=== PATIENT | male | born 1935 | race Caucasian/White ===

== ENCOUNTER 2017-08-20 14:06 | Inpatient (IN) | payer MEDICARE, OTHER ==
[~2017-08-20] VITALS: Ht 167.6 cm; Wt 100.0 kg
[~2017-08-20 14:06] MED LIST: ACET250T22; ASPI-650; ATEN50TA; BRIM10DR2; CIPR5DRO; FURO40TA4; GEMF600T60; GLIP-95; ISOS10TA2; METF500T4; PIOG30TA19; POTA10TA97; PRA40; SITA100T8; TAMS-14; TRAV5DRO5
[2017-08-20] MEDS ORDERED: SOD CHLORIDE 0.9% 1,000 ML IV STA (14:29)
[2017-08-20] MEDS ORDERED: PANTOPRAZOLE IV 80 MG in SOD CHLORIDE 0.9% 100 ML IVPB STA (14:29)
[2017-08-20] MEDS ORDERED: ACET160O41 GTB ×2 (15:11→15:12)
[2017-08-20] MEDS ORDERED: AMLO5TAB4 GTB (15:13)
[2017-08-20] MEDS ORDERED: ARGI1POW19 GTB (15:15)
[2017-08-20] MEDS ORDERED: BEN25 GTB (15:16)
[2017-08-20] MEDS ORDERED: CLON-379 PO (15:17)
[2017-08-20] MEDS ORDERED: EPO10ESRD SC (15:19)
[2017-08-20] MEDS ORDERED: SACC250C GTB (15:21)
[2017-08-20] MEDS ORDERED: FRS220B GTB (15:21)
[2017-08-20] MEDS ORDERED: FURO40TA4 GTB (15:22)
[2017-08-20] MEDS ORDERED: HYDR-3672 GTB (15:25)
[2017-08-20] MEDS ORDERED: ISOS20TA19 GTB (15:26)
[2017-08-20] MEDS ORDERED: INSU100I27 SQ (15:26)
[2017-08-20] MEDS ORDERED: METO25TA4 GTB (15:28)
[2017-08-20] MEDS ORDERED: FOLI1CAP GTB (15:29)
--- NOTE | 2017-08-20 16:01 | RADRPT ---
PROCEDURE: XR Chest. CLINICAL INDICATION: Shortness of breath. TECHNIQUE: Single frontal view. COMPARISON: 02/20/2017. FINDINGS: The tracheostomy tube is in satisfactory position. There is extensive bilateral pulmonary air space disease consistent with pulmonary edema or bilateral multifocal pneumonia, new when compared with th e prior study. The heart is mildly enlarged. There is calcification in the aorta consistent with atherosclerosis There are small bilateral pleural effusions. There is no pneumothorax. IMPRESSION: 1. Tracheostomy tube. 2. Extensive bilateral multifocal pneumonia or pulmonary edema. 3. Mild cardiomegaly. 4. Atherosclerosis. 5. Small bilateral pleural effusions. RPTAT: QQ .Javi Bruno MD, MD Date Time Electronically viewed and signed by .Javi Bruno MD, MD on 08/20/2017 16:01 .R/
[2017-08-20] MEDS ORDERED: PANT40TA3 GTB (16:29)
[2017-08-20] MEDS ORDERED: VIT500LI GTB (16:29)
[2017-08-20] MEDS ORDERED: CHOL4POW3 GTB (16:32)
[2017-08-20] MEDS ORDERED: NOVO3I SC (16:42)
[2017-08-20] MEDS ORDERED: VANCOMYCIN 1 GM (PMX) 250 ML IVPB STA (17:10)
[2017-08-20] MEDS ORDERED: PIPER-TAZO 3.375 GM IV (PMX) 100 ML IVPB STA (17:10)
--- NOTE | 2017-08-20 17:11 | ERA ---
ER Documentation Chief Complaint Date/Time DATE: 08/20/17 TIME: 17:08 Chief Complaint elebated BUN and Creatnine HPI This is an 81-year-old male who presents to the emergency room after being sent in by his primary care physician for evaluation of his BUN and creatinine. The patient does have a history of renal insufficiency, however he is not on dialysis. This patient was sent from his senior care by Dr. osorio. He is unable to give a detailed history secondary to his clinical condition at this time. ROS All systems reviewed and are negative except as per history of present illness. Medications Home Meds Reported Medications Insulin Aspart* (Novolog Insulin Pen*) 100 Unit/Ml Soln, 0 SC .SLIDING SCALE AC , EA BEFORE MEALS AND AT BEDTIME 61-149= 0 UNITS 150-199= 2 UNITS 200-249= 3 UNITS 250-299= 5 UNITS 300-349= 7 UNITS ABOVE 350 10 UNITS AND CALL MD ALSO BELOW 60 CALL MD 08/20/17 Cholestyramine (with Sugar) (Questran Packet) 4 Gm Powd.pack, 4 GM GTB BID Y for DIARRHEA give with food avoid other meds within 1 hour before or 4-6 hours after dose 08/20/17 Pantoprazole* (Protonix*) 40 Mg Tablet., 40 MG GTB DAILY, TAB 08/20/17 Vit C-Ascorbate Ca-Ascorb Sod (Vitamin C) 500 Mg/15 Ml Liquid, 166 MG GTB BID, ML 08/20/17 Folic Acid/Vitamin B Comp W-C (Nephrocaps Capsule) 1 Mg Capsule, 1 MG GTB DAILY , CAP 08/20/17 Metoprolol Tartrate* (Lopressor*) 25 Mg Tablet, 75 MG GTB BID, #180 TAB HOLD IF SBP <110 OR HR <60 TAKE WITH FOOD 08/20/17 Insulin Detemir (Levemir Flextouch) 100 Unit/1 Ml Insuln.pen, 10 UNIT SQ QHS 08/20/17 Isosorbide Dinitrate* (Isosorbide Dinitrate*) 20 Mg Tablet, 40 MG GTB BID, TAB 08/20/17 Hydralazine Hcl* (Hydralazine Hcl*) 50 Mg Tab, 50 MG GTB TID, #90 TAB HOLF IF SBP <110 OR HR <60 08/20/17 Furosemide* (Furosemide*) 40 Mg Tablet, 40 MG GTB BID, TAB 08/20/17 Saccharomyces Boulardii* (Florastor*) 250 Mg Cap, 250 MG GTB BID, CAP 08/20/17 Ferrous Sulfate (Ferrous Sulfate) 220 Mg/5 Ml Elixir, 220 MG GTB BID, BOTTLE 08/20/17 Epoetin Bo (Epogen) 10,000 Units/Ml Soln, 94379 UNITS SC EVERY TUESDAY, VIAL 08/20/17 Clonidine Hcl* (Clonidine Hcl*) 0.1 Mg Tab, 0.1 MG PO Q6 Y for ELEVATED BLOOD PRESSURE, TAB GIVE IF SBP >160 08/20/17 Diphenhydramine Hcl* (Benadryl*) 25 Mg Cap, 25 MG GTB Q8 Y for ITCHING, CAP 08/20/17 Arginine/Ascorbate Sod/Florencio AC (Arginaid Powder) 1 Each Powd.pack, 1 EACH GTB BID MIX WITH 180ML WATER 08/20/17 Amlodipine Besylate* (Norvasc*) 5 Mg Tablet, 5 MG GTB BID, TAB 08/20/17 Acetaminophen* (Acetaminophen* Susp) 160 Mg/5 Ml Oral.susp, 640 MG GTB Q4H Y for MILD-MOD PAIN, ML 08/20/17 Acetaminophen* (Acetaminophen* Susp) 160 Mg/5 Ml Oral.susp, 640 MG GTB Q4H Y for PAIN OR TEMP ABOVE 38C, ML 08/20/17 Discontinued Reported Medications Ciprofloxacin Hcl (Ciloxan) 5 Ml Drops 12/27/12 Brimonidine/Timolol* (Combigan*) 10 Ml Drops 12/27/12 Travoprost (Benzalkonium) (Travatan 0.004% Eye Drop) 5 Ml Drops 12/27/12 Gemfibrozil* (Gemfibrozil*) 600 Mg Tablet, 1 BID 12/27/12 Metformin* (Glucophage*) 500 Mg Tab, 2 BID 12/27/12 Atenolol* (Atenolol*) 50 Mg Tablet, 1 DAILY 12/27/12 Sitagliptin* (Januvia*) 100 Mg Tablet, 1 DAILY 12/27/12 Pravastatin Sodium* (Pravachol*) 40 Mg Tablet, 1 DAILY 12/27/12 Potassium Chloride (Klor-Con) 10 Meq Tablet.sa, 1 DAILY 12/27/12 Acetazolamide* (Acetazolamide*) 250 Mg Tablet, 2 BID 12/27/12 Glipizide* (Glipizide*) 10 Mg Tablet, 1 BID 12/27/12 Isosorbide Dinitrate* (Isosorbide Dinitrate*) 10 Mg Tablet, 1 TID 12/27/12 Pioglitazone Hcl* (Actos*) 30 Mg Tablet, 1 DAILY 12/27/12 Tamsulosin Hcl* (Flomax*) 0.4 Mg Cap.sr.24h, 1 BID 12/27/12 Aspirin (Aspirin) 81 Mg Tablet, 1 DAILY 12/27/12 Furosemide (Lasix) 40 Mg Tab 12/27/12 Allergies Allergies: Coded Allergies: No Known Drug Allergies (Verified Allergy, Unknown, 08/20/17) PMhx/Soc History of Surgery: No Anesthesia Reaction: No 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 EOMI. There is no scleral icterus. NECK: The trach ostomy site clean, C-spine is soft and supple, there is no meningismus. There is no cervical lymphadenopathy. LUNGS: Clear to auscultation bilaterally. There are no rales, wheezes or rhonchi. HEART: Regular rate and rhythm, no murmurs, clicks, rubs or gallops. ABDOMEN: PEG tube in place, soft, non-tender, non-distended. There are bowel sounds in all four quadrants. No rebound or guarding. EXTREMITIES: There is no peripheral cyanosis or edema. No focal swelling or erythema. NEUROLOGICAL: Contracted extremities SKIN: There is no apparent rash or petechiae. HEME/LYMPHATIC: Severe scrotal edema, 1+ pitting edema to bilateral lower extremities PSYCHIATRIC: The patient does not appear anxious or depressed. Result Diagram: 08/20/17 1500 08/20/17 1500 Results 24 hrs Laboratory Tests Test 08/20/17 15:00 08/20/17 17:17 White Blood Count 5.410^3/ul Red Blood Count 2.5710^6/ul Hemoglobin 7.3g/dl Hematocrit 22.7% Mean Corpuscular Volume 88.3fl Mean Corpuscular Hemoglobin 28.4pg Mean Corpuscular Hemoglobin Concent 32.2g/dl Red Cell Distribution Width 17.5% Platelet Count 5810^3/UL Mean Platelet Volume 11.9fl Neutrophils % 76.1% Lymphocytes % 17.4% Monocytes % 5.4% Eosinophils % 0.7% Basophils % 0.0% Nucleated Red Blood Cells % 0.0/100WBC Neutrophils # 4.110^3/ul Lymphocytes # 0.910^3/ul Monocytes # 0.310^3/ul Eosinophils # 0.010^3/ul Basophils # 0.010^3/ul Nucleated Red Blood Cells # 0.010^3/ul Prothrombin Time 14.2Sec Prothrombin Time Ratio 1.1 INR International Normalized Ratio 1.10 Activated Partial Thromboplast Time 33.8Sec Sodium Level 131mmol/L Potassium Level 4.1mmol/L Chloride Level 100mmol/L Carbon Dioxide Level 16mmol/L Anion Gap 19 Blood Urea Nitrogen 197mg/dl Creatinine 7.54mg/dl Glucose Level 98mg/dl Calcium Level 7.0mg/dl Total Bilirubin 0.0mg/dl Direct Bilirubin 0.00mg/dl Indirect Bilirubin 0.0mg/dl Aspartate Amino Transf (AST/SGOT) 22IU/L Alanine Aminotransferase (ALT/SGPT) 36IU/L Alkaline Phosphatase 115IU/L Troponin I 0.147ng/ml B-Type Natriuretic Peptide 24445SO/ML Total Protein 7.1g/dl Albumin 2.9g/dl Globulin 4.20g/dl Albumin/Globulin Ratio 0.69 Blood Gas Specimen Source Blood arterial Arterial Blood Date Drawn 08/20/2017 5:38:24 PM Arterial Blood pH (Temp corrected) 7.312 Arterial Blood pCO2 (Temp correct) 32.8mmhg Arterial Blood pO2 (Temp corrected) 53.2mmHG Arterial Blood HCO3 16.2mmol/L Arterial Blood Base Excess -9.2mmol/L Arterial Blood Oxygen Saturation 84.9mmHG Harsha Test ACCEPTAB Arterial Blood Gas Puncture Site Right Radial Arterial Blood Carboxyhemoglobin 0.1% Arterial Blood Methemoglobin 0.1% Blood Gas A-a O2 Differential 266.4mmHg Oxyhemoglobin Percent 84.7% Total Hemoglobin 6.5g/dl Blood Gas Temperature 37.0C Blood Gas Respiration Rate 14.0 Blood Gas Actual Respiration Rate 18 Blood Gas Modality VENT - AC FiO2 50.0% Blood Gas Tidal Volume 500.0mL Blood Gas Low PEEP Setting 5.0cmH2O Blood Gas Critical Value Read Back MD SUSU Blood Gas Notified Whom [place] Blood Gas Notified Time 08/20/2017 5:45:45 PM Current Medications Medications (Trade) Dose Ordered Sig/Russell Route PRN Reason Start Time Stop Time Status Last Admin Dose Admin Sodium Chloride 1,000 ml @ 1,000 mls/hr Q1H STAT IV 08/20/17 14:29 08/20/17 15:28 DC 08/20/17 15:14 Pantoprazole/ Sodium Chloride (Protonix Iv/NS) 100 ml @ 400 mls/hr ONCE STAT IVPB 08/20/17 14:29 08/20/17 14:43 DC 08/20/17 14:29 Ondansetron HCl (Zofran Inj) 4 mg ER BRIDGE PRN IV NAUSEA AND/OR VOMITING 08/20/17 17:30 08/21/17 17:29 Acetaminophen 650 mg 650 mg ER BRIDGE PRN PO MILD PAIN/FEVER 08/20/17 17:30 08/21/17 17:29 Vancomycin HCl 250 ml @ 125 mls/hr ONCE STAT IVPB 08/20/17 17:10 08/20/17 19:09 Piperacillin Sod/ Tazobactam Sod (Zosyn 3.375gm/ 100 ml (Pmx)) 100 ml @ 200 mls/hr ONCE STAT IVPB 08/20/17 17:10 08/20/17 17:39 DC Procedures/MDM Chest X-ray 1V Interpreted by me: Soft Tissue: No acute abnormalities Bones: No acute abnormalities Mediastinum/Cardiac Silhouette/Lungs: [Pulmonary edema EKG: Rate/Rhythm: [Normal Sinus Rhythm] QRS, ST, T-waves: [No changes consistent w/ acute ischemia] Impression: [No evidence of ischemia or arrhythmia] This 81-year-old male presents to the ER for evaluation of increasing his BUN and creatinine. When I evaluated this patient this patient was unable to give a history secondary to his clinical condition however lab work was obtained and a chest x-ray was obtained which does show pulmonary edema. His lab work does show acute renal failure. His creatinine is 7.54 at this time in his previous creatinine was less than 1. His BUN is 197. The patient is suffering from acute renal failure at this time. I have contacted his admitting physician Dr. Conner who is covering for Dr. Krishnan states to contact nephrology Dr. Nieto. I contacted Dr. Nieto and Dr. Nieto states that he will evaluate this patient on the floor. This patient will be placed on telemetry floor at this time and is full code according to his senior care Critical Care: Excluding all billable procedures Time: 38 minutes Treatments/Evaluations: Close monitoring and treatment of unstable vital signs, cardiorespiratory, and neurologic status, while maintaining tight balance of fluid, respiratory, and cardiac interventions. Departure Diagnosis: Primary Impression: Pulmonary edema Additional Impressions: Acute renal failure Normocytic anemia Thrombocytopenia Condition: Stable AHMET YOST DO Aug 20, 2017 17:11
[2017-08-20] MEDS ORDERED: ACETAMINOPHEN 325 MG TAB PO PRN (17:30)
[2017-08-20] MEDS ORDERED: ONDANSETRON 4 MG INJ IV PRN (17:30)
[2017-08-20] MEDS ORDERED: ASPIRIN 325 MG TAB PEG ONE (18:00)
[2017-08-20] MEDS ORDERED: ASPIRIN 325 MG TAB ONE (18:47)
--- NOTE | 2017-08-20 20:09 | CONS ---
Date/Time of Note Date/Time of Note DATE: 08/20/17 TIME: 20:09 Assessment/Plan Assessment/Plan Additional Assessment/Plan 1. Acute on Chronic Renal failure 2/2 Prerenal azotemia with ATN 2. AMS due to acute metabolic encephalopathy + uremic encephalopathy 3. Severe metabolic acidosis 4. HTN 5. H/o CVA with residual weakness 6. IDDM Plan: Sodium bicarboante 100mEQ in D5 W at 50 cc /hr IV abx Zosyn and vancomycin as per pharamcy to dose AM labs ordered by me pt was recently admitted to [facility] for similar reason and Pt family declined for HD. we will try to reach out to maciel to further discuss goals of care. Thanks for consultation , I will conitnue to follow up Consultation Date/Type/Reason Admit Date/Time Aug 20, 2017 at 17:03 Date of Consultation: Aug 20, 2017 Type of Consultation: NEPHROLOGY Reason for Consultation acute renal failure Referring Provider: HUSSEIN ROSE Hx of Present Illness 81-year-old male who presents to the emergency room after being sent in by his primary care physician for evaluation of his BUN and creatinine. The patient does have a history of renal insufficiency, however he is not on dialysis. This patient was sent from his senior living by Dr. osorio. He is unable to give a detailed history secondary to his clinical condition at this time. pt was recently admitted at [facility] [place] for similar acute on chronic renal failure and during that admission maciel declinied for HD/ pt was brought in here for AMS, He is noted to have BUN 197, Cr 7.9- Renal has been consulted for it. Subjective hx not possible: pt non-verbal, other (Unable to obtain ROS due to pt mental status ) Past Medical History Medical History: congestive heart failure, diabetes, hypertension, other (H/o CVA with residual weakness) Past Surgical History Past Surgical Hx: other (Tracheostomhy) Family History Significant Family History: no pertinent family hx Social History Alcohol Use: none Smoking Status: Unknown if ever smoked Drug Use: none Exam/Review of Systems Vital Signs Vitals Vital Signs Date Time Temp Pulse Resp B/P Pulse Ox O2 Delivery O2 Flow Rate FiO2 08/20/17 19:10 69 26 95 80 08/20/17 16:37 131/65 Mechanical Ventilator 08/20/17 15:06 10 08/20/17 15:06 98.4 Exam Constitutional: non-verbal Psych: no complaints Head: normocephalic Neck: non-tender, supple Respiratory: congested cough, crackles/rales, diminished breath sounds, normal air movement Cardiovascular: nl pulses, regular rate and rhythm Gastrointestinal: non-tender, soft Musculoskeletal: joint tenderness, muscle weakness, swelling Extremities: normal pulses Neurological: confused, focal weakness Results Result Diagram: 08/20/17 1500 08/20/17 1500 Results 24 hrs Laboratory Tests Test 08/20/17 15:00 08/20/17 17:17 08/20/17 17:43 White Blood Count 5.4 # Red Blood Count 2.57 #L Hemoglobin 7.3 #L Hematocrit 22.7 #L Mean Corpuscular Volume 88.3 Mean Corpuscular Hemoglobin 28.4 L Mean Corpuscular Hemoglobin Concent 32.2 Red Cell Distribution Width 17.5 H Platelet Count 58 #L Mean Platelet Volume 11.9 #H Neutrophils % 76.1 Lymphocytes % 17.4 Monocytes % 5.4 Eosinophils % 0.7 Basophils % 0.0 Nucleated Red Blood Cells % 0.0 Neutrophils # 4.1 Lymphocytes # 0.9 Monocytes # 0.3 Eosinophils # 0.0 Basophils # 0.0 Nucleated Red Blood Cells # 0.0 Prothrombin Time 14.2 Prothrombin Time Ratio 1.1 INR International Normalized Ratio 1.10 Activated Partial Thromboplast Time 33.8 Sodium Level 131 L Potassium Level 4.1 Chloride Level 100 Carbon Dioxide Level 16 L Anion Gap 19 H Blood Urea Nitrogen 197 H Creatinine 7.54 H Glucose Level 98 Calcium Level 7.0 L Total Bilirubin 0.0 L Direct Bilirubin 0.00 Indirect Bilirubin 0.0 Aspartate Amino Transf (AST/SGOT) 22 Alanine Aminotransferase (ALT/SGPT) 36 Alkaline Phosphatase 115 Troponin I 0.147 *H B-Type Natriuretic Peptide 25705 H Total Protein 7.1 Albumin 2.9 L Globulin 4.20 H Albumin/Globulin Ratio 0.69 Blood Gas Specimen Source Blood arterial Arterial Blood Date Drawn 08/20/2017 5:38:24 PM Arterial Blood pH (Temp corrected) 7.312 L Arterial Blood pCO2 (Temp correct) 32.8 L Arterial Blood pO2 (Temp corrected) 53.2 *L Arterial Blood HCO3 16.2 L Arterial Blood Base Excess -9.2 L Arterial Blood Oxygen Saturation 84.9 L Harsha Test ACCEPTAB Arterial Blood Gas Puncture Site Right Radial Arterial Blood Carboxyhemoglobin 0.1 Arterial Blood Methemoglobin 0.1 Blood Gas A-a O2 Differential 266.4 H Oxyhemoglobin Percent 84.7 L Total Hemoglobin 6.5 L Blood Gas Temperature 37.0 Blood Gas Respiration Rate 14.0 Blood Gas Actual Respiration Rate 18 Blood Gas Modality VENT - AC FiO2 50.0 Blood Gas Tidal Volume 500.0 Blood Gas Low PEEP Setting 5.0 Blood Gas Critical Value Read Back MD SUSU Blood Gas Notified Whom DONELL Blood Gas Notified Time 08/20/2017 5:45:45 PM Lactic Acid Level 0.7 Medications Medications Current Medications Sodium Bicarbonate/ Dextrose (Na Bicarb/D5W) 1,100 ml @ 50 mls/hr Q22H IV ; Start 08/20/17 at 20:30; Status UNV LUCILLE CABALLERO MD Aug 20, 2017 20:09
[2017-08-20] MEDS: SODIUM BICARBONATE (IV ADD) 100 MEQ in DEXTROSE 5% 900 ML IV SCH (20:30)
--- NOTE | 2017-08-21 07:29 | RADRPT ---
PROCEDURE: Renal US. CLINICAL INDICATION: acute renal failure, to assess for CKD TECHNIQUE: Multiple sonographic images of the kidneys were obtained. The images were reviewed on a PACS workstation. COMPARISON: No prior studies are available for comparison. FINDINGS: The kidneys appear increased in echogenicity. The right kidney measures 10.7 cm. 2 cortical cysts ar e seen in the upper pole, the larger measuring 3.1 x 3.5 cm. The left kidney measures 10.1 cm. There is an exophytic cyst in the lower pole measuring 2.2 x 2.4 x 2 cm. There is no evidence for obstr uctive uropathy. No perinephric fluid is seen. IMPRESSION: Increased renal echogenicity suggesting renal parenchymal disease. Bilateral renal cysts. Physician Benjamín Date Time Electronically viewed and signed by Physician Benjamín on 08/21/2017 07:29 /
--- NOTE | 2017-08-21 11:50 | HP ---
Date/Time of Note Date/Time of Note DATE: 08/21/17 TIME: 11:37 Assessment/Plan VTE Prophylaxis VTE Prophylaxis Intervention: other Assessment/Plan Chief Complaint/Hosp Course 1) renal insufficiency failure - consult nephrology - will need clarification as to what the family wants done 2) chronic respiratory failure - on trach, appears stable Problems: HPI/ROS Admit Date/Time Admit Date/Time Aug 20, 2017 at 17:03 Hx of Present Illness Patient is from subacute with respiratory failure that is known to me. Patient apparently was noted to have increasing BUN and Creatinine but there was conflicting reports as to how aggressive the family wanted to be regarding his treatment. I was called regarding BUN over 100 and Cr also extremely elevated. Patient was apparently stable but the family decided that they wanted the patient to go to an acute hospital. Patient was then transfered for further evaluation and treatment. ROS Subjective hx not possible: pt non-verbal Psychological: no complaints PMH/Family/Social Past Medical History Medical History: congestive heart failure, diabetes, hypertension, other (H/o CVA with residual weakness) Past Surgical History Past Surgical Hx: other (Tracheostomhy) Social History Alcohol Use: none Smoking Status: Unknown if ever smoked Drug Use: none Exam/Review of Systems Vital Signs Vitals Vital Signs Date Time Temp Pulse Resp B/P Pulse Ox O2 Delivery O2 Flow Rate FiO2 08/21/17 11:00 80 28 94 50 08/21/17 10:57 136/68 Mechanical Ventilator 08/21/17 07:21 8.0 08/21/17 06:00 96.0 Exam Constitutional: well developed Neck: supple Respiratory: diminished breath sounds Cardiovascular: regular rate and rhythm Gastrointestinal: non-tender, soft Extremities: normal pulses Labs Result Diagram: 08/21/1752908/21/17529 Medications Medications Current Medications Sodium Bicarbonate/ Dextrose (Na Bicarb/D5W) 1,000 ml @ 50 mls/hr Q20H IV Last administered on 08/20/17t 20:30; Admin Dose 50 MLS/HR; Start 08/20/17 at 20 :30 HUSSEIN ROSE Aug 21, 2017 11:50
--- NOTE | 2017-08-21 13:14 | RADRPT ---
PROCEDURE: US bilateral upper extremity veins. CLINICAL INDICATION: Bilateral upper extremity pain and swelling. TECHNIQUE: Multiple longitudinal and transverse images of the bilateral upper extremity venous quin e was obtained with maldonado scale and color Doppler imaging. COMPARISON: None available FINDINGS: The bilateral internal jugular, subclavian, axillary, brachial, basilic, cephalic, radial, and ulnar veins are patent. There is normal flow with augmentation and compressibility throughout. There is no thrombus or occlusion. IMPRESSION: 1. Normal venous system of the upper extremities. No evidence of thrombus or occlusion. RPTAT: QQ .Javi Bruno MD, MD Date Time Electronically viewed and signed by .Javi Bruno MD, MD on 08/21/2017 13:14 .R/
--- NOTE | 2017-08-21 13:15 | RADRPT ---
PROCEDURE: US bilateral lower extremity veins. CLINICAL INDICATION: Bilateral leg pain and swelling. TECHNIQUE: Multiple longitudinal and transverse images of the bilateral lower extremity veins were obtained with maldonado scale and color Doppler imaging. The common femoral vein, femoral vein, and popl iteal vein were evaluated. 2D grayscale measurements with compression sonography, color Doppler, and pulsed Doppler with augmentation. COMPARISON: No prior studies are available for comparison. FINDINGS: The right common femoral, femoral and popliteal veins are normally compressible throughout. Color f low demonstrates normal filling of the vessels. Normal waveforms are visualized and there is normal response to augmentation. The left lower extremity cannot be completely evaluated due to patient inability to cooperate. Howev er, the left common femoral vein demonstrates normal compressibility. IMPRESSION: 1. No evidence of deep venous thrombosis of the right lower extremity. 2. The left lower extremity could not be evaluated. However, the left common femoral vein appears n ormal. RPTAT: QQ .Javi Bruno MD, MD Date Time Electronically viewed and signed by .Javi Bruno MD, on 08/21/2017 13:15 .R/
--- NOTE | 2017-08-21 15:10 | CONS ---
Date/Time of Note Date/Time of Note DATE: 08/21/17 TIME: 15:04 Assessment/Plan Assessment/Plan Additional Assessment/Plan IMP: 1. AMS--likely multifactorial and related to a combination of uremia, sepsis, and a poor baseline 2. Multifocal pulm opacities--component of volume, however, likely co-existing pneumonia 3. Acute on CKD 4. Demand ischemia 5. CHF 6. Anemia RECS: 1. Renal to discuss possible HD with family 2. Vent support with increased RR to compensate for met acidosis 3. NaHCO3 for now 4. Abx 5. BC x 2 6. Resp Cx 7. ECHO 8. Am labs/CXR Consultation Date/Type/Reason Admit Date/Time Aug 20, 2017 at 17:03 Type of Consultation: Pulm Hx of Present Illness Briefly, this is an 81-year-old male with a history of chronic resp failure s/p trach, HTN, CHF, CVA, CKD, SNF resident who presents to the emergency room after being sent in by his primary care physician for evaluation of his BUN and creatinine. In the ED, he was noted to be more hypoxemic than baseline with severe renal failure, seen by Renal. Subjective hx not possible: pt non-verbal Psychological: no complaints Past Medical History Medical History: congestive heart failure, diabetes, hypertension, other (H/o CVA with residual weakness) Past Surgical History Past Surgical Hx: other (Tracheostomhy) Family History Significant Family History: no pertinent family hx Social History Alcohol Use: none Smoking Status: Unknown if ever smoked Drug Use: none Exam/Review of Systems Vital Signs Vitals Vital Signs Date Time Temp Pulse Resp B/P Pulse Ox O2 Delivery O2 Flow Rate FiO2 08/21/17 13:39 82 16 151/77 95 Mechanical Ventilator 08/21/17 11:00 50 08/21/17 07:21 8.0 08/21/17 06:00 96.0 Exam Constitutional: non-verbal Head: atraumatic, normocephalic ENMT: intubated, nl external ears & nose, nl lips & teeth Neck: non-tender, supple Respiratory: crackles/rales, diminished breath sounds, labored breathing Cardiovascular: jugular venous distention (JVD), nl pulses, systolic murmur Gastrointestinal: nl liver, spleen, non-tender, soft Musculoskeletal: nl extremities to inspection Extremities: edema, pitting pedal edema Results Result Diagram: 08/21/17 0530 08/21/17 0530 Results 24 hrs Laboratory Tests Test 08/20/17 17:17 08/20/17 17:43 08/21/17 05:30 08/21/17 05:40 Blood Gas Specimen Source Blood arterial Blood arterial Arterial Blood Date Drawn 08/20/2017 5:38:24 PM 08/21/2017 5:30:20 AM Arterial Blood pH (Temp corrected) 7.312 L 7.320 L Arterial Blood pCO2 (Temp correct) 32.8 L 27.8 L Arterial Blood pO2 (Temp corrected) 53.2 *L 69.4 L Arterial Blood HCO3 16.2 L 14.0 L Arterial Blood Base Excess -9.2 L -10.9 L Arterial Blood Oxygen Saturation 84.9 L 91.5 L Harsha Test ACCEPTAB ACCEPTAB Arterial Blood Gas Puncture Site Right Radial Right Radial Arterial Blood Carboxyhemoglobin 0.1 0.3 Arterial Blood Methemoglobin 0.1 0.3 Blood Gas A-a O2 Differential 266.4 H 255.8 H Oxyhemoglobin Percent 84.7 L 91.0 L Total Hemoglobin 6.5 L 8.1 L Blood Gas Temperature 37.0 37.0 Blood Gas Respiration Rate 14.0 14.0 Blood Gas Actual Respiration Rate 18 26 Blood Gas Modality VENT - AC VENT - AC FiO2 50.0 50.0 Blood Gas Tidal Volume 500.0 500.0 Blood Gas Low PEEP Setting 5.0 5.0 Blood Gas Critical Value Read Back MD DR. JARETT CRISTOBAL J. Blood Gas Notified Whom [place] Blood Gas Notified Time 08/20/2017 5:45:45 PM 08/21/2017 5:57:06 AM Lactic Acid Level 0.7 White Blood Count 5.3 Red Blood Count 2.44 L Hemoglobin 6.8 *L Hematocrit 21.6 L Mean Corpuscular Volume 88.5 Mean Corpuscular Hemoglobin 27.9 L Mean Corpuscular Hemoglobin Concent 31.5 L Red Cell Distribution Width 17.9 H Platelet Count 55 L Mean Platelet Volume 13.1 H Neutrophils % 78.3 H Lymphocytes % 15.1 Monocytes % 5.1 Eosinophils % 1.1 Basophils % 0.0 Nucleated Red Blood Cells % 0.0 Neutrophils # 4.2 Lymphocytes # 0.8 Monocytes # 0.3 Eosinophils # 0.1 Basophils # 0.0 Nucleated Red Blood Cells # 0.0 Sodium Level 132 L Potassium Level 3.8 Chloride Level 102 Carbon Dioxide Level 14 L Anion Gap 20 H Blood Urea Nitrogen 192 H Creatinine 7.35 H Glucose Level 102 Uric Acid 5.0 Calcium Level 6.9 L Total Bilirubin 0.0 L Direct Bilirubin 0.00 Indirect Bilirubin 0.0 Aspartate Amino Transf (AST/SGOT) 20 Alanine Aminotransferase (ALT/SGPT) 32 Alkaline Phosphatase 109 Total Protein 6.8 Albumin 2.8 L Globulin 4.00 H Albumin/Globulin Ratio 0.70 Blood Gas Mean Airway Pressure 13 Blood Gas Inspiratory Pressure 29.0 Test 08/21/17 11:35 Blood Gas Specimen Source Blood arterial Arterial Blood Date Drawn 08/21/2017 11:49:41 AM Arterial Blood pH (Temp corrected) 7.309 L Arterial Blood pCO2 (Temp correct) 29.8 L Arterial Blood pO2 (Temp corrected) 69.0 L Arterial Blood HCO3 14.6 L Arterial Blood Base Excess -10.6 L Arterial Blood Oxygen Saturation 91.1 L Harsha Test ACCEPTAB Arterial Blood Gas Puncture Site Right Radial Arterial Blood Carboxyhemoglobin 0.3 Arterial Blood Methemoglobin 0.4 Blood Gas A-a O2 Differential 254.0 H Oxyhemoglobin Percent 90.5 L Total Hemoglobin 7.8 L Blood Gas Temperature 37.0 Blood Gas Respiration Rate 14.0 Blood Gas Actual Respiration Rate 14 Blood Gas Modality VENT - AC FiO2 50.0 Blood Gas Tidal Volume 500.0 Blood Gas Low PEEP Setting 5.0 Blood Gas Notified Whom [facility] Blood Gas Notified Time 08/21/2017 11:54:38 AM Medications Medications Current Medications Sodium Bicarbonate/ Dextrose (Na Bicarb/D5W) 1,000 ml @ 50 mls/hr Q20H IV Last administered on 08/20/17 20:30; Admin Dose 50 MLS/HR; Start 08/20/17 at 20 :30 Metoprolol Tartrate (Lopressor) 25 mg BID GTB ; Start 08/21/17 at 21:00 GLO COLEY MD Aug 21, 2017 15:10
--- NOTE | 2017-08-21 15:42 | CONS ---
DATE OF ADMISSION: 08/20/2017 DATE OF CONSULTATION: 08/21/2017 REASON FOR CONSULTATION: Positive troponin. Assess significance. REFERRING PHYSICIAN: Dr. Waqar Chávez HISTORY OF PRESENT ILLNESS: Mr. Rodriguez is an 81-year-old male with a history of hypertension, prior CVA, diabetes mellitus, congestive heart failure, chronic respiratory failure respiratory failure status post-tracheostomy, chronic renal failure, encephalopathy who initially presented with worsening mental status. Initially upon arrival, the temperature was 98.4, blood pressure 124/67, pulse 64, respirations 16, saturating 97 percent. LABORATORY AND DIAGNOSTIC STUDIES: Revealed a white count 5.4, hemoglobin 7.3, platelet count of 58. Sodium 131, potassium of 4.1, creatinine 7.54, which was increased from baseline. Troponin 0.147. BNP of 32,700. ABG revealing a pH of 7.312, with a PaO2 of 53, pCO2 of 32. INR of 1.1. The patient underwent a chest x-ray, revealing a tracheostomy tube in place, extensive bilateral multifocal pneumonia or pulmonary edema, mild cardiomegaly and small bilateral pleural effusions. The patient underwent a venous ultrasound revealing no evidence of DVT in the right lower extremity and no evidence of DVT of the upper extremities. In addition, the patient had a renal ultrasound revealing increased renal echogenicity suggesting renal parenchymal disease. The patient's electrocardiogram revealed normal sinus rhythm, rate of 64, normal axis, intervals, with nonspecific ST throughout diffusely. The patient subsequently at this time awaits admit to the ICU. PAST MEDICAL HISTORY: As above in HPI. MEDICATION: Currently in hospital: 1. IV fluid hydration with bicarbonate fluids 50 cc an hour. 2. Zofran. 3. Tylenol. ALLERGIES: NO KNOWN DRUG ALLERGIES. SOCIAL HISTORY: No current tobacco, EtOH or illicit drug use. FAMILY HISTORY: No history of cardiac or early CAD. REVIEW OF SYSTEMS: As above in HPI. CONSTITUTIONAL: No fevers or chills. RESPIRATORY: No current shortness of breath. CARDIOVASCULAR: No current signs of chest pain, but positive troponin. GASTROINTESTINAL: No vomiting. GENITOURINARY: Renal failure, acute on chronic. PSYCH: No documented psych history. NEURO: Encephalopathy, history of CVA. ENDOCRINE: Diabetes mellitus. PHYSICAL EXAMINATION: VITAL SIGNS: Temperature of 96 most recently, blood pressure 151/77, pulse 82, respiratory rate 16, saturating 95 percent. GENERAL: The patient is alert, encephalopathic. NECK: Tracheostomy in place. LUNGS: Upper chest rhonchi sounds. HEART: Regular rate and rhythm. Normal S1, S2. 1/6 systolic murmur. Nondisplaced PMI. ABDOMEN: Positive bowel sounds. Soft. Positive G-tube. EXTREMITIES: Trace edema. 1+ pulses bilaterally posterior tibial. LABORATORY: Most recently from today, white count 5.3, hemoglobin 6.8, platelet count of 55, sodium 132, potassium 3.8, creatinine of 7.35. ABG revealing a pH of 7.309, a PaO2 of 69, pCO2 of 29. IMAGING STUDIES: As above in HPI. No further imaging studies are reviewed. No further electrograms for review at this time. IMPRESSION: 1. Positive troponin status. Significant in the setting of renal failure. 2. Abnormal electrocardiogram, nonspecific ST-T abnormalities. 3. Hypertension. 4. Respiratory failure, acute on chronic. 5. Renal failure, acute on chronic. 6. Dysphagia, status post G-tube. 7. Anemia, severe. 8. Thrombocytopenia, severe. 9. Encephalopathy. 10. History of CVA. 11. Diabetes mellitus. RECOMMENDATIONS: 1. At this time, would admit patient to the ICU. Follow rhythm rate control closely. 2. We will continue to trend the patient's cardiac enzymes. Assess for any significant ongoing cardiac damage. 3. Check a 2D echo to further assess ejection fraction, wall motion, and major abnormalities. 4. Initiate patient on low-dose beta hai as tolerated. Follow heart rate blood pressure closely. 5. We will not give patient any aspirin at this time given significant anemia as well as thrombocytopenia. 6. Possible need for hemodialysis depending on goals of current care. Per chart, the patient has received has refused hemodialysis in the past and thus I thing it is of importance to discuss with the patient's family code status and goals of care at this time given severe renal failure. Thank you for allowing to take part in the care of this patient. I will continue to follow closely with you with any recommendations made during patient's hospital course. Dictated By: Amol Zuniga MD /rosie/deshawn /Document#: [id number] CC: Waqar Chávez MD; Michael Nieto MD;*EndCC* MTDD
[2017-08-21] MEDS: SODIUM BICARBONATE (IV ADD) 100 MEQ in DEXTROSE 5% 900 ML IV SCH (17:58)
[2017-08-21] MEDS: METOPROLOL 25 MG TAB GTB SCH (21:09)
[2017-08-21 23:28] VITALS: TEMP 98.7
[2017-08-21 23:59] VITALS: PULSE 94
[2017-08-22] VITALS (65 sets, daily range): BP systolic 46–191; BP diastolic 10–137; PULSE 79–113; RESP 16–39; BMI 25.5
--- NOTE | 2017-08-22 07:28 | RADRPT ---
PROCEDURE: XR Chest. CLINICAL INDICATION: Shortness of breath. TECHNIQUE: Single frontal view. COMPARISON: 08/20/2017. FINDINGS: The tracheostomy tube is in satisfactory position. There is extensive bilateral pulmonary air space disease consistent with pulmonary edema or bilateral multifocal pneumonia, worse when compared with the prior study. The heart is mildly enlarged. There is calcification in the aorta consistent with atherosclerosis There are small bilateral pleural effusions. There is no pneumothorax. IMPRESSION: 1. Worse appearance of the lungs. 2. No other change from 08/20/2017. RPTAT: QQ .Javi Bruno MD, MD Date Time Electronically viewed and signed by .Javi Bruno MD, MD on 08/22/2017 07:28 .R/
[2017-08-22] MEDS ORDERED: VANCOMYCIN IV PER PHARMACY XX SCH (08:30)
--- NOTE | 2017-08-22 08:34 | CONS ---
Date/Time of Note Date/Time of Note DATE: 08/22/17 TIME: 08:22 Assessment/Plan Assessment/Plan Chief Complaint/Hosp Course 81-year-old male who presents to the emergency room after being sent in by his primary care physician for evaluation of his BUN and creatinine. The patient does have a history of renal insufficiency, however he is not on dialysis. This patient was sent from his fdc by Dr. osorio. He is unable to give a detailed history secondary to his clinical condition at this time. pt was recently admitted at [facility] for similar acute on chronic renal failure and during that admission familiy declinied for HD/ pt was brought in here for AMS, He is noted to have BUN 197, Cr 7.9- Renal has been consulted for it. Problems: Additional Assessment/Plan 1. Sepsis due to PNA 2. Acute on chronic renal failure - with severe metabolic acidosis and acute uremic encephalopathy 3. AMS due to acute uremic encephalopathy + acute metabolic encephalopathy 3. H/o recent admission to [facility] for renal failure 4. H/o chronic resp failure s/p tracheostomy 5. HTN 6. H/o CVA with residual weakness 7.. IDDM Plan: Continue D5W with sodium bicarboante now I discussed with patient tyra Burrell- [phone] and explained him about his Dad's medical problems, overall prognosis and need of hemodialysis. all of his questions answered properly. He said pt was admitted to [facility] recently and had a a Discussion about dialysis also. He wants to have HD now and insisted on doing it and give him a chance of survival. I explained him risks and complications of dialysis catheter placement and also informed him that HD will not change his overall prognosis and outcome. He still want to try HD to see how does. will order dialysis catheter placement and plan is to do 2 hr HD today and 3 hr HD tomorrow. requested to place tee catheter IV abx zosyn and vancomycin for sepsis Pulmonary to follow up Consultation Date/Type/Reason Admit Date/Time Aug 20, 2017 at 17:03 Initial Consult Date 08/20/17 Type of Consultation: NEPHROLOGY Referring Provider: HUSSEIN ROSE 24 HR Interval Summary Free Text/Dictation pt admitted to ICU, did not a make urine, BP 106/70 Exam/Review of Systems Vital Signs Vitals Vital Signs Date Time Temp Pulse Resp B/P Pulse Ox O2 Delivery O2 Flow Rate FiO2 08/22/17 06:00 90 24 125/56 98 08/22/17 05:38 70 08/22/17 04:00 98.0 08/22/17 00:15 Mechanical Ventilator 08/21/17 23:28 8.0 Intake and Output 08/21/17 08/21/17 08/22/17 15:00 23:00 07:00 Intake Total 350 ml Output Total 10 ml Balance 340 ml Exam Constitutional: non-verbal Head: normocephalic ENMT: other (+ tracheostomy on ventilator ) Neck: non-tender, supple Respiratory: congested cough, crackles/rales, diminished breath sounds Cardiovascular: S3, regular rate and rhythm Gastrointestinal: non-tender, soft Musculoskeletal: other (2+ pittign edema ), swelling Neurological: other (non verbal ,lethargic, pt is s/p tracheostomy on ventilator ) Results Result Diagram: 08/22/17 0505 08/22/17 0505 Results 24 hrs Laboratory Tests Test 08/21/17 11:35 08/21/17 18:20 08/22/17 01:07 08/22/17 05:00 Blood Gas Specimen Source Blood arterial Blood arterial Arterial Blood Date Drawn 08/21/2017 11:49:41 AM 08/22/2017 4:40:36 AM Arterial Blood pH (Temp corrected) 7.309 L 7.291 *L Arterial Blood pCO2 (Temp correct) 29.8 L 33.8 L Arterial Blood pO2 (Temp corrected) 69.0 L 66.4 L Arterial Blood HCO3 14.6 L 15.9 L Arterial Blood Base Excess -10.6 L -9.7 L Arterial Blood Oxygen Saturation 91.1 L 90.0 L Harsha Test ACCEPTAB ACCEPTAB Arterial Blood Gas Puncture Site Right Radial Right Radial Arterial Blood Carboxyhemoglobin 0.3 0.3 Arterial Blood Methemoglobin 0.4 0.4 Blood Gas A-a O2 Differential 254.0 H 396.4 H Oxyhemoglobin Percent 90.5 L 89.4 L Total Hemoglobin 7.8 L 7.2 L Blood Gas Temperature 37.0 37.0 Blood Gas Respiration Rate 14.0 24.0 Blood Gas Actual Respiration Rate 14 26 Blood Gas Modality VENT - AC VENT - VC+ FiO2 50.0 70.0 Blood Gas Tidal Volume 500.0 500.0 Blood Gas Low PEEP Setting 5.0 5.0 Blood Gas Notified Whom [facility] Blood Gas Notified Time 08/21/2017 11:54:38 AM 08/22/2017 5:00:35 AM Creatine Kinase < 20 L 121 Creatine Kinase Index 4.1 Creatinine Kinase MB (Mass) 4.98 H 4.96 H Troponin I 0.238 *H 0.204 *H Blood Gas Inspiratory Time 0.70 Blood Gas Critical Value Read Back Niharika LEONARD RN Test 08/22/17 05:05 White Blood Count 6.0 Red Blood Count 2.24 L Hemoglobin 6.4 *L Hematocrit 19.7 L Mean Corpuscular Volume 87.9 Mean Corpuscular Hemoglobin 28.6 L Mean Corpuscular Hemoglobin Concent 32.5 Red Cell Distribution Width 17.7 H Platelet Count 51 L Mean Platelet Volume 13.0 H Neutrophils % 80.1 H Lymphocytes % 14.1 L Monocytes % 5.0 Eosinophils % 0.3 Basophils % 0.0 Nucleated Red Blood Cells % 0.0 Neutrophils # 4.8 Lymphocytes # 0.8 Monocytes # 0.3 Eosinophils # 0.0 Basophils # 0.0 Nucleated Red Blood Cells # 0.0 Sodium Level 129 L Potassium Level 4.0 Chloride Level 100 Carbon Dioxide Level 15 L Anion Gap 18 H Blood Urea Nitrogen 200 H Creatinine 7.14 H Glucose Level 102 Lactic Acid Level 0.6 Calcium Level 6.7 L Triglycerides Level 85 Cholesterol Level 84 L LDL Cholesterol, Calculated 38 HDL Cholesterol 29 L Cholesterol/HDL Ratio 2.8 Medications Medications Current Medications Sodium Bicarbonate/ Dextrose (Na Bicarb/D5W) 1,000 ml @ 50 mls/hr Q20H IV Last administered on 08/21/17 17:58; Admin Dose 50 MLS/HR; Start 08/20/17 at 20 :30 Metoprolol Tartrate (Lopressor) 25 mg BID GTB Last administered on 08/21/17 21 :09; Admin Dose 25 MG; Start 08/21/17 at 21:00 LUCILLE CABALLERO MD Aug 22, 2017 08:32
[2017-08-22] MEDS ORDERED: LIDOCAINE 1% (MPF) 5 ML VIAL SC ONE (09:00)
[2017-08-22] MEDS ORDERED: VANCOMYCIN 1.5 GM in SOD CHLORIDE 0.9% 250 ML IVPB ONE (10:00)
--- NOTE | 2017-08-22 10:25 | CONS ---
Date/Time of Note Date/Time of Note DATE: 08/22/17 TIME: 10:14 Assessment/Plan Assessment/Plan Chief Complaint/Hosp Course IMPRESSION: 1. Positive troponin status. Significant in the setting of renal failure-slowly downtrending 2. Abnormal electrocardiogram, nonspecific ST-T abnormalities. 3. Hypertension-well controlled 4. Respiratory failure, chronic. 5. Renal failure, acute on chronic. 6. Dysphagia, status post G-tube. 7. Anemia, severe. 8. Thrombocytopenia, severe. 9. Encephalopathy. 10. History of CVA. 11. Diabetes mellitus. 12. Hyponatremia Recc: -Tele -Continue BB -trend cardiac enzymes -follow volume status with possible initiation of HD after family discussion -No ASA given severe anemia and consider transfusion -Continue abx's and f/u cx data -Follow na closely -Will f/u echo Problems: Consultation Date/Type/Reason Admit Date/Time Aug 20, 2017 at 17:03 Initial Consult Date 08/20/17 Type of Consultation: cardiology Reason for Consultation positive troponin Referring Provider: HUSSEIN ROSE Exam/Review of Systems Vital Signs Vitals Vital Signs Date Time Temp Pulse Resp B/P Pulse Ox O2 Delivery O2 Flow Rate FiO2 08/22/17 08:18 90 31 100 70 08/22/17 06:00 125/56 08/22/17 04:00 98.0 08/22/17 00:15 Mechanical Ventilator 08/21/17 23:28 8.0 Intake and Output 08/21/17 08/21/17 08/22/17 15:00 23:00 07:00 Intake Total 350 ml Output Total 10 ml Balance 340 ml Exam Review of Systems: CONSTITUTIONAL: No fevers, chills. PULMONARY: trached CARDIOVASCULAR: No obvious chest pain/palpitations GASTROINTESTINAL: No nausea/vomiting. GENITOURINARY: No hematuria/dysuria. MUSCULOSKELETAL: No obvious myagias/arthalgias. PSYCHIATRIC: No documented depression. NEUROLOGIC: No weakness Constitutional: other (Encephalopathic) Head: normocephalic Neck: other (trached) Cardiovascular: regular rate and rhythm Gastrointestinal: non-tender, soft Musculoskeletal: muscle weakness (generalized) Extremities: pitting pedal edema (BIlateral) Neurological: other (encephalopathic) Results Result Diagram: 08/22/17 0505 08/22/17 0505 Results 24 hrs Laboratory Tests Test 08/21/17 11:35 08/21/17 18:20 08/22/17 01:07 08/22/17 05:00 Blood Gas Specimen Source Blood arterial Blood arterial Arterial Blood Date Drawn 08/21/2017 11:49:41 AM 08/22/2017 4:40:36 AM Arterial Blood pH (Temp corrected) 7.309 L 7.291 *L Arterial Blood pCO2 (Temp correct) 29.8 L 33.8 L Arterial Blood pO2 (Temp corrected) 69.0 L 66.4 L Arterial Blood HCO3 14.6 L 15.9 L Arterial Blood Base Excess -10.6 L -9.7 L Arterial Blood Oxygen Saturation 91.1 L 90.0 L Harsha Test ACCEPTAB ACCEPTAB Arterial Blood Gas Puncture Site Right Radial Right Radial Arterial Blood Carboxyhemoglobin 0.3 0.3 Arterial Blood Methemoglobin 0.4 0.4 Blood Gas A-a O2 Differential 254.0 H 396.4 H Oxyhemoglobin Percent 90.5 L 89.4 L Total Hemoglobin 7.8 L 7.2 L Blood Gas Temperature 37.0 37.0 Blood Gas Respiration Rate 14.0 24.0 Blood Gas Actual Respiration Rate 14 26 Blood Gas Modality VENT - AC VENT - VC+ FiO2 50.0 70.0 Blood Gas Tidal Volume 500.0 500.0 Blood Gas Low PEEP Setting 5.0 5.0 Blood Gas Notified Whom [facility] Blood Gas Notified Time 08/21/2017 11:54:38 AM 08/22/2017 5:00:35 AM Creatine Kinase < 20 L 121 Creatine Kinase Index 4.1 Creatinine Kinase MB (Mass) 4.98 H 4.96 H Troponin I 0.238 *H 0.204 *H Blood Gas Inspiratory Time 0.70 Blood Gas Critical Value Read Back Niharika LEONARD RN Test 08/22/17 05:05 White Blood Count 6.0 Red Blood Count 2.24 L Hemoglobin 6.4 *L Hematocrit 19.7 L Mean Corpuscular Volume 87.9 Mean Corpuscular Hemoglobin 28.6 L Mean Corpuscular Hemoglobin Concent 32.5 Red Cell Distribution Width 17.7 H Platelet Count 51 L Mean Platelet Volume 13.0 H Neutrophils % 80.1 H Lymphocytes % 14.1 L Monocytes % 5.0 Eosinophils % 0.3 Basophils % 0.0 Nucleated Red Blood Cells % 0.0 Neutrophils # 4.8 Lymphocytes # 0.8 Monocytes # 0.3 Eosinophils # 0.0 Basophils # 0.0 Nucleated Red Blood Cells # 0.0 Sodium Level 129 L Potassium Level 4.0 Chloride Level 100 Carbon Dioxide Level 15 L Anion Gap 18 H Blood Urea Nitrogen 200 H Creatinine 7.14 H Glucose Level 102 Lactic Acid Level 0.6 Calcium Level 6.7 L Triglycerides Level 85 Cholesterol Level 84 L LDL Cholesterol, Calculated 38 HDL Cholesterol 29 L Cholesterol/HDL Ratio 2.8 Medications Medications Current Medications Sodium Bicarbonate/ Dextrose (Na Bicarb/D5W) 1,000 ml @ 50 mls/hr Q20H IV Last administered on 08/21/17 17:58; Admin Dose 50 MLS/HR; Start 08/20/17 at 20 :30 Metoprolol Tartrate 25 mg 25 mg BID GTB Last administered on 08/21/17 21:09; Admin Dose 25 MG; Start 08/21/17 at 21:00 Piperacillin Sod/ Tazobactam Sod 50 ml @ 100 mls/hr Q8 IVPB ; Start 08/22/17 at 08:30 Vancomycin HCl/ Sodium Chloride (Vancocin/NS) 250 ml @ 83.333 mls/ hr ONCE ONCE IVPB ; Start 08/22/17 at 10:00; Stop 08/22/17 at 12:59 BRENTON NORTON Aug 22, 2017 10:24
[2017-08-22] MEDS: METOPROLOL 25 MG TAB GTB SCH ×2 (10:30→21:09)
[2017-08-22] MEDS: PIPER-TAZO 2.25 GM (PMX) 50 ML IVPB SCH ×3 (12:03→21:24)
[2017-08-22] MEDS: SODIUM BICARBONATE (IV ADD) 100 MEQ in DEXTROSE 5% 900 ML IV SCH ×2 (12:30→22:28)
--- NOTE | 2017-08-22 12:45 | CONS ---
Date/Time of Note Date/Time of Note DATE: 08/22/17 TIME: 12:40 Assessment/Plan Assessment/Plan Additional Assessment/Plan Ventilator setting; AC of 24, tidal volume 500, PEEP of 5, 70% FiO2. Chest x-ray was reviewed from today which is showing worsening pulmonary edema. Assessment and recommendations; 1. Patient with history of advanced dementia with a history of chronic respiratory failure which is ventilator dependent admitted for worsening renal failure and increasing pulmonary edema. 2. Prior history of hemodialysis. 3. Advanced dementia. 4. Anemia and severe thrombocytopenia. 5. Difficult to rule out superimposed pneumonia. Continue current treatment. Increase PEEP to 10. Family to consider hemodialysis. Consultation Date/Type/Reason Admit Date/Time Aug 20, 2017 at 17:03 Initial Consult Date 08/20/17 Type of Consultation: Pulmonary/critical care Referring Provider: HUSSEIN ROSE 24 HR Interval Summary Free Text/Dictation Patient's condition remains critical but stable. Has remained hemodynamically stable. General exam; elderly male, on ventilator via tracheostomy, awake but unresponsive. Patient currently in no distress. Exam/Review of Systems Vital Signs Vitals Vital Signs Date Time Temp Pulse Resp B/P Pulse Ox O2 Delivery O2 Flow Rate FiO2 08/22/17 12:04 94 28 96 70 08/22/17 06:00 125/56 08/22/17 04:00 98.0 08/22/17 00:15 Mechanical Ventilator 08/21/17 23:28 8.0 Intake and Output 08/21/17 08/21/17 08/22/17 15:00 23:00 07:00 Intake Total 350 ml Output Total 10 ml Balance 340 ml Exam HEENT exam; supple neck, positive JVD. No lymphadenopathy. Midline trachea. No thyromegaly. Tracheostomy in place. Patient has a multiple carious teeth. Pupils are small bilaterally. Chest exam; diminished breath sounds bilaterally. S1-S2 audible, no murmurs. Regular rhythm. Abdomen exam; soft, protuberant. G-tube in place. Bowel sounds are audible. Extremity exam; 2+ anasarca. Patient does have multiple ecchymosis involving all 4 extremities. CUT OFF [place] exam; patient is awake but unresponsive to any commands. Results Result Diagram: 08/22/17 0505 08/22/17 0505 Results 24 hrs Laboratory Tests Test 08/21/17 18:20 08/22/17 01:07 08/22/17 05:00 08/22/17 05:05 Creatine Kinase < 20 L 121 Creatine Kinase Index 4.1 Creatinine Kinase MB (Mass) 4.98 H 4.96 H Troponin I 0.238 *H 0.204 *H Blood Gas Specimen Source Blood arterial Arterial Blood Date Drawn 08/22/2017 4:40:36 AM Arterial Blood pH (Temp corrected) 7.291 *L Arterial Blood pCO2 (Temp correct) 33.8 L Arterial Blood pO2 (Temp corrected) 66.4 L Arterial Blood HCO3 15.9 L Arterial Blood Base Excess -9.7 L Arterial Blood Oxygen Saturation 90.0 L Harsha Test ACCEPTAB Arterial Blood Gas Puncture Site Right Radial Arterial Blood Carboxyhemoglobin 0.3 Arterial Blood Methemoglobin 0.4 Blood Gas A-a O2 Differential 396.4 H Oxyhemoglobin Percent 89.4 L Total Hemoglobin 7.2 L Blood Gas Temperature 37.0 Blood Gas Respiration Rate 24.0 Blood Gas Actual Respiration Rate 26 Blood Gas Modality VENT - VC+ FiO2 70.0 Blood Gas Inspiratory Time 0.70 Blood Gas Tidal Volume 500.0 Blood Gas Low PEEP Setting 5.0 Blood Gas Critical Value Read Back Niharika LEONARD RN Blood Gas Notified Whom [place] Blood Gas Notified Time 08/22/2017 5:00:35 AM White Blood Count 6.0 Red Blood Count 2.24 L Hemoglobin 6.4 *L Hematocrit 19.7 L Mean Corpuscular Volume 87.9 Mean Corpuscular Hemoglobin 28.6 L Mean Corpuscular Hemoglobin Concent 32.5 Red Cell Distribution Width 17.7 H Platelet Count 51 L Mean Platelet Volume 13.0 H Neutrophils % 80.1 H Lymphocytes % 14.1 L Monocytes % 5.0 Eosinophils % 0.3 Basophils % 0.0 Nucleated Red Blood Cells % 0.0 Neutrophils # 4.8 Lymphocytes # 0.8 Monocytes # 0.3 Eosinophils # 0.0 Basophils # 0.0 Nucleated Red Blood Cells # 0.0 Sodium Level 129 L Potassium Level 4.0 Chloride Level 100 Carbon Dioxide Level 15 L Anion Gap 18 H Blood Urea Nitrogen 200 H Creatinine 7.14 H Glucose Level 102 Lactic Acid Level 0.6 Calcium Level 6.7 L Triglycerides Level 85 Cholesterol Level 84 L LDL Cholesterol, Calculated 38 HDL Cholesterol 29 L Cholesterol/HDL Ratio 2.8 Test 08/22/17 09:22 Prothrombin Time 17.3 #H Prothrombin Time Ratio 1.4 INR International Normalized Ratio 1.41 Activated Partial Thromboplast Time 47.0 H Medications Medications Current Medications Sodium Bicarbonate/ Dextrose (Na Bicarb/D5W) 1,000 ml @ 50 mls/hr Q20H IV Last administered on 08/21/17 17:58; Admin Dose 50 MLS/HR; Start 08/20/17 at 20 :30 Metoprolol Tartrate 25 mg 25 mg BID GTB Last administered on 08/22/17 10:30; Admin Dose 25 MG; Start 08/21/17 at 21:00 Piperacillin Sod/ Tazobactam Sod 50 ml @ 100 mls/hr Q8 IVPB Last administered on 08/22/17 12:03; Admin Dose 100 MLS/HR; Start 08/22/17 at 08:30 Vancomycin HCl/ Sodium Chloride (Vancocin/NS) 250 ml @ 83.333 mls/ hr ONCE ONCE IVPB Last administered on 08/22/17 10:35; Admin Dose 83.333 MLS/HR; Start 08/22/17 at 10:00; Stop 08/22/17 at 12:59 ODETTE MCKEON Aug 22, 2017 12:45
--- NOTE | 2017-08-22 12:50 | RADRPT ---
Echocardiogram Report Patient Name: FRANCESCO STONE Gender: Male Date: 1935 Study Date: 22-Aug-2017 Rodent Exterminator: Bhargav [facility] Location: 111 Ref. Physician: BRENTON ZUNIGA Quality: Adequate Procedures: Transthoracic echocardiogram with complete 2D, M-Mode, and doppler examination. Indications: Positive troponin. 2D/M Mode Doppler Measurement Value Normal Ranges Measurement Value Normal Ranges LVIDd 2D 5.0 3.5 - 5.6 cm AV Peak Asad 1.0 m/sec LVIDs 2D 3.7 2.1 - 4.1 cm AV Peak PG 4.0 mmHg FS 2D 25.9 % LVOT Peak Asad 0.7 m/sec LVPWd 2D 1.1 0.6 - 1.1 cm LVOT Peak PG 2.0 mmHg IVSd 2D 1.0 0.6 - 1.1 cm MV E Peak Asad 1.0 m/sec IVS/LVPW 2D 1.0 MV A Peak Asad 0.6 m/sec AoR Diam 2D 2.8 2.0 - 3.7 cm MV E/A 1.6 LA/Ao 2D 1 0 - 1 MV Decel Time 176 msec EDV 2D 124.0 cm3 MV E/A 1.6 ESV 2D 50.7 cm3 TR Peak Asad 2.3 m/sec LA Dimen 2D 3.9 2.3 - 4.0 cm TR Peak PG 22.0 mmHg RVSP 25.0 mmHg Findings Left Ventricle: Normal left ventricular cavity size. Normal left ventricular wall thickness. Mild global left ventricular systolic dysfunction. Ejection fraction is visually estimated at 40 %. Abnormal Diastolic Function. Right Ventricle: Normal right ventricular size. Normal right ventricular systolic function. Left Atrium: The left atrium is normal in size. Right Atrium: The right atrium is normal in size. Mitral Valve: Mild mitral leaflet calcification. Mild mitral annular calcification. Trace mitral regurgitation. Aortic Valve: No significant aortic stenosis or insufficiency. Aortic cusps appear mildly calcified. Tricuspid Valve: Normal appearance of the tricuspid valve. Estimated peak PA systolic pressure 25 mmHg. There is trace tricuspid regurgitation. Pulmonic Valve: Pulmonic valve not well visualized. There is trace pulmonic regurgitation. Pericardium: Normal pericardium with no significant pericardial effusion. Aorta: Normal aortic root. IVC: Normal size and normal respiratory collapse consistent with normal right atrial pressure. Conclusions 1.Normal left ventricular cavity size. Normal left ventricular wall thickness. Mild global left ventricular systolic dysfunction. Ejection fraction is visually estimated at 40 %. Abnormal Diastolic Function. 2.Mild mitral leaflet calcification. Mild mitral annular calcification. Trace mitral regurgitation. 3.Normal appearance of the tricuspid valve. Estimated peak PA systolic pressure 25 mmHg. There is trace tricuspid regurgitation. 4.Pulmonic valve not well visualized. There is trace pulmonic regurgitation. Electronically Signed By: Brenton Zuniga 22-Aug-2017 12:49:44 -0700 Patient Name: FRANCESCO STONE Study Date: 22-Aug-2017 [id number]
--- NOTE | 2017-08-22 12:50 | RADRPT ---
Echocardiogram Report Patient Name: FRANCESCO STONE Gender: Male Date: 1935 Study Date: 22-Aug-2017 Financial Recruiter: Bhargav [facility] Location: 111 Ref. Physician: BRENTON ZUNIGA Quality: Adequate Procedures: Transthoracic echocardiogram with complete 2D, M-Mode, and doppler examination. Indications: Positive troponin. 2D/M Mode Doppler Measurement Value Normal Ranges Measurement Value Normal Ranges LVIDd 2D 5.0 3.5 - 5.6 cm AV Peak Asad 1.0 m/sec LVIDs 2D 3.7 2.1 - 4.1 cm AV Peak PG 4.0 mmHg FS 2D 25.9 % LVOT Peak Asad 0.7 m/sec LVPWd 2D 1.1 0.6 - 1.1 cm LVOT Peak PG 2.0 mmHg IVSd 2D 1.0 0.6 - 1.1 cm MV E Peak Asad 1.0 m/sec IVS/LVPW 2D 1.0 MV A Peak Asad 0.6 m/sec AoR Diam 2D 2.8 2.0 - 3.7 cm MV E/A 1.6 LA/Ao 2D 1 0 - 1 MV Decel Time 176 msec EDV 2D 124.0 cm3 MV E/A 1.6 ESV 2D 50.7 cm3 TR Peak Asad 2.3 m/sec LA Dimen 2D 3.9 2.3 - 4.0 cm TR Peak PG 22.0 mmHg RVSP 25.0 mmHg Findings Left Ventricle: Normal left ventricular cavity size. Normal left ventricular wall thickness. Mild global left ventricular systolic dysfunction. Ejection fraction is visually estimated at 40 %. Abnormal Diastolic Function. Right Ventricle: Normal right ventricular size. Normal right ventricular systolic function. Left Atrium: The left atrium is normal in size. Right Atrium: The right atrium is normal in size. Mitral Valve: Mild mitral leaflet calcification. Mild mitral annular calcification. Trace mitral regurgitation. Aortic Valve: No significant aortic stenosis or insufficiency. Aortic cusps appear mildly calcified. Tricuspid Valve: Normal appearance of the tricuspid valve. Estimated peak PA systolic pressure 25 mmHg. There is trace tricuspid regurgitation. Pulmonic Valve: Pulmonic valve not well visualized. There is trace pulmonic regurgitation. Pericardium: Normal pericardium with no significant pericardial effusion. Aorta: Normal aortic root. IVC: Normal size and normal respiratory collapse consistent with normal right atrial pressure. Conclusions 1.Normal left ventricular cavity size. Normal left ventricular wall thickness. Mild global left ventricular systolic dysfunction. Ejection fraction is visually estimated at 40 %. Abnormal Diastolic Function. 2.Mild mitral leaflet calcification. Mild mitral annular calcification. Trace mitral regurgitation. 3.Normal appearance of the tricuspid valve. Estimated peak PA systolic pressure 25 mmHg. There is trace tricuspid regurgitation. 4.Pulmonic valve not well visualized. There is trace pulmonic regurgitation. Electronically Signed By: Brenton Zuniga 22-Aug-2017 12:49:44 -0700 Patient Name: FRANCESCO STONE Study Date: 22-Aug-2017 [id number]
--- NOTE | 2017-08-22 12:50 | RADRPT ---
Echocardiogram Report Patient Name: FRANCESCO STONE Gender: Male Date: 1935 Study Date: 22-Aug-2017 Operating Engineer: Bhargav [facility] Location: 111 Ref. Physician: BRENTON ZUNIGA Quality: Adequate Procedures: Transthoracic echocardiogram with complete 2D, M-Mode, and doppler examination. Indications: Positive troponin. 2D/M Mode Doppler Measurement Value Normal Ranges Measurement Value Normal Ranges LVIDd 2D 5.0 3.5 - 5.6 cm AV Peak Asad 1.0 m/sec LVIDs 2D 3.7 2.1 - 4.1 cm AV Peak PG 4.0 mmHg FS 2D 25.9 % LVOT Peak Asad 0.7 m/sec LVPWd 2D 1.1 0.6 - 1.1 cm LVOT Peak PG 2.0 mmHg IVSd 2D 1.0 0.6 - 1.1 cm MV E Peak Asad 1.0 m/sec IVS/LVPW 2D 1.0 MV A Peak Asad 0.6 m/sec AoR Diam 2D 2.8 2.0 - 3.7 cm MV E/A 1.6 LA/Ao 2D 1 0 - 1 MV Decel Time 176 msec EDV 2D 124.0 cm3 MV E/A 1.6 ESV 2D 50.7 cm3 TR Peak Asad 2.3 m/sec LA Dimen 2D 3.9 2.3 - 4.0 cm TR Peak PG 22.0 mmHg RVSP 25.0 mmHg Findings Left Ventricle: Normal left ventricular cavity size. Normal left ventricular wall thickness. Mild global left ventricular systolic dysfunction. Ejection fraction is visually estimated at 40 %. Abnormal Diastolic Function. Right Ventricle: Normal right ventricular size. Normal right ventricular systolic function. Left Atrium: The left atrium is normal in size. Right Atrium: The right atrium is normal in size. Mitral Valve: Mild mitral leaflet calcification. Mild mitral annular calcification. Trace mitral regurgitation. Aortic Valve: No significant aortic stenosis or insufficiency. Aortic cusps appear mildly calcified. Tricuspid Valve: Normal appearance of the tricuspid valve. Estimated peak PA systolic pressure 25 mmHg. There is trace tricuspid regurgitation. Pulmonic Valve: Pulmonic valve not well visualized. There is trace pulmonic regurgitation. Pericardium: Normal pericardium with no significant pericardial effusion. Aorta: Normal aortic root. IVC: Normal size and normal respiratory collapse consistent with normal right atrial pressure. Conclusions 1.Normal left ventricular cavity size. Normal left ventricular wall thickness. Mild global left ventricular systolic dysfunction. Ejection fraction is visually estimated at 40 %. Abnormal Diastolic Function. 2.Mild mitral leaflet calcification. Mild mitral annular calcification. Trace mitral regurgitation. 3.Normal appearance of the tricuspid valve. Estimated peak PA systolic pressure 25 mmHg. There is trace tricuspid regurgitation. 4.Pulmonic valve not well visualized. There is trace pulmonic regurgitation. Electronically Signed By: Brenton Zuniga 22-Aug-2017 12:49:44 -0700 Patient Name: FRANCESCO STONE Study Date: 22-Aug-2017 [id number]
--- NOTE | 2017-08-22 13:23 | PN ---
Date/Time of Note Date/Time of Note DATE: 08/22/17 TIME: 13:02 Assessment/Plan VTE Prophylaxis VTE Prophylaxis Intervention: SCD's Lines/Catheters IV Catheter Type (from [facility] Peripheral IV Urinary Cath still in place: Yes (NOW INSERTED) Reason Cath still needed: urinary retention Assessment/Plan Chief Complaint/Hosp Course Patient currently undergoing blood transfusion, on ventilatory support, pending hemodialysis catheter placement by Dr. Pepper today. Problems: Assessment/Plan -Acute on chronic CKD. Pending starting hemodialysis upon hemodialysis catheter insertion. Dr. Nieto is following in nephrology consultation. -Ventilator dependent respiratory failure with tracheostomy -Pulmonary edema versus multifocal pneumonia, continue broad-spectrum antibiotics -Positive troponin in the setting of renal disease, Dr. Zuniga is following in cardiology consultation -Acute metabolic encephalopathy -Anemia, patient is undergoing blood transfusion, will obtain stool for OB -DM -Dysphagia with PEG Further recommendations based on clinical course. Plan of care discussed with Dr. Chávez. Exam/Review of Systems Vital Signs Vitals Vital Signs Date Time Temp Pulse Resp B/P Pulse Ox O2 Delivery O2 Flow Rate FiO2 08/22/17 12:04 94 28 96 70 08/22/17 06:00 125/56 08/22/17 04:00 98.0 08/22/17 00:15 Mechanical Ventilator 08/21/17 23:28 8.0 Intake and Output 08/21/17 08/21/17 08/22/17 15:00 23:00 07:00 Intake Total 350 ml Output Total 10 ml Balance 340 ml Exam Constitutional: frail Neck: other (Tracheostomy), supple Respiratory: other (Rhonchi) Cardiovascular: nl pulses Gastrointestinal: non-tender, other (G-tube), soft Extremities: normal pulses Results Result Diagram: 08/22/17 0505 08/22/17 0505 Results 24 hrs Laboratory Tests Test 08/21/17 18:20 08/22/17 01:07 08/22/17 05:00 08/22/17 05:05 Creatine Kinase < 20 L 121 Creatine Kinase Index 4.1 Creatinine Kinase MB (Mass) 4.98 H 4.96 H Troponin I 0.238 *H 0.204 *H Blood Gas Specimen Source Blood arterial Arterial Blood Date Drawn 08/22/2017 4:40:36 AM Arterial Blood pH (Temp corrected) 7.291 *L Arterial Blood pCO2 (Temp correct) 33.8 L Arterial Blood pO2 (Temp corrected) 66.4 L Arterial Blood HCO3 15.9 L Arterial Blood Base Excess -9.7 L Arterial Blood Oxygen Saturation 90.0 L Harsha Test ACCEPTAB Arterial Blood Gas Puncture Site Right Radial Arterial Blood Carboxyhemoglobin 0.3 Arterial Blood Methemoglobin 0.4 Blood Gas A-a O2 Differential 396.4 H Oxyhemoglobin Percent 89.4 L Total Hemoglobin 7.2 L Blood Gas Temperature 37.0 Blood Gas Respiration Rate 24.0 Blood Gas Actual Respiration Rate 26 Blood Gas Modality VENT - VC+ FiO2 70.0 Blood Gas Inspiratory Time 0.70 Blood Gas Tidal Volume 500.0 Blood Gas Low PEEP Setting 5.0 Blood Gas Critical Value Read Back Niharika LEONARD RN Blood Gas Notified Whom [place] Blood Gas Notified Time 08/22/2017 5:00:35 AM White Blood Count 6.0 Red Blood Count 2.24 L Hemoglobin 6.4 *L Hematocrit 19.7 L Mean Corpuscular Volume 87.9 Mean Corpuscular Hemoglobin 28.6 L Mean Corpuscular Hemoglobin Concent 32.5 Red Cell Distribution Width 17.7 H Platelet Count 51 L Mean Platelet Volume 13.0 H Neutrophils % 80.1 H Lymphocytes % 14.1 L Monocytes % 5.0 Eosinophils % 0.3 Basophils % 0.0 Nucleated Red Blood Cells % 0.0 Neutrophils # 4.8 Lymphocytes # 0.8 Monocytes # 0.3 Eosinophils # 0.0 Basophils # 0.0 Nucleated Red Blood Cells # 0.0 Sodium Level 129 L Potassium Level 4.0 Chloride Level 100 Carbon Dioxide Level 15 L Anion Gap 18 H Blood Urea Nitrogen 200 H Creatinine 7.14 H Glucose Level 102 Lactic Acid Level 0.6 Calcium Level 6.7 L Triglycerides Level 85 Cholesterol Level 84 L LDL Cholesterol, Calculated 38 HDL Cholesterol 29 L Cholesterol/HDL Ratio 2.8 Test 08/22/17 09:22 Prothrombin Time 17.3 #H Prothrombin Time Ratio 1.4 INR International Normalized Ratio 1.41 Activated Partial Thromboplast Time 47.0 H Medications Medications Current Medications Sodium Bicarbonate/ Dextrose (Na Bicarb/D5W) 1,000 ml @ 50 mls/hr Q20H IV Last administered on 08/21/17t 17:58; Admin Dose 50 MLS/HR; Start 08/20/17 at 20 :30 Metoprolol Tartrate 25 mg 25 mg BID GTB Last administered on 08/22/17 10:30; Admin Dose 25 MG; Start 08/21/17 at 21:00 Piperacillin Sod/ Tazobactam Sod (Zosyn 2.25gm/ 50ml (Pmx)) 50 ml @ 100 mls/hr Q8 IVPB Last administered on 08/22/17 12:03; Admin Dose 100 MLS/HR; Start 08/22/17 at 08:30 ARLETH MCKNIGHT Aug 22, 2017 13:12
[2017-08-22] MEDS ORDERED: GLUCOSE GEL 15 GRAM TUBE BUCCAL PRN (13:30)
[2017-08-22] MEDS ORDERED: GLUCAGON 1 MG INJ IM PRN (13:30)
[2017-08-22] MEDS ORDERED: GLUCOSE GEL 15 GRAM TUBE PO PRN ×2 (13:30)
--- NOTE | 2017-08-22 17:52 | RADRPT ---
PROCEDURE: Ultrasound guidance for placement of needle in right upper extremity vein. CLINICAL INDICATION: Venous access. TECHNIQUE: Limited sonography of the right upper extremity was performed. Ultrasound images were recorded and stored in the patient's medical record. COMPARISON: None. FINDINGS: The ultrasound images demonstrate a patent right upper extremity vein. The PICC line was inserted b y the PICC line nurse. IMPRESSION: 1. Ultrasound guidance for a needle placement in a right upper extremity vein. 2. The visualized right upper extremity vein is patent. RPTAT: QQ .Javi Bruno MD, MD Date Time Electronically viewed and signed by .Javi Bruno MD, MD on 08/22/2017 17:51 .R/
--- NOTE | 2017-08-22 17:53 | RADRPT ---
PROCEDURE: XR Chest. CLINICAL INDICATION: Check PICC line position. TECHNIQUE: Single frontal view. COMPARISON: Prior study done earlier the same day. FINDINGS: There is a left arm PICC line with the tip in the lower superior vena cava. There is dense consolid ation bilaterally consistent with pulmonary edema or bilateral pneumonia, unchanged. The heart is enlarged. There are small bilateral pleural effusions. There is no pneumothorax. IMPRESSION: 1. Left arm PICC line tip in satisfactory position. 2. No other change from the prior study done earlier the same day. RPTAT: QQ .Javi Bruno MD, Date Time Electronically viewed and signed by .Javi Bruno MD, MD on 08/22/2017 17:53 .R/
--- NOTE | 2017-08-22 17:54 | RADRPT ---
PROCEDURE: XR Chest. CLINICAL INDICATION: Check PICC line position. TECHNIQUE: Single frontal view. COMPARISON: Prior study done earlier the same day. FINDINGS: There is a left arm PICC line with the tip in the lower superior vena cava. There is dense consolid ation bilaterally consistent with pulmonary edema or bilateral pneumonia, unchanged. The tracheostom y tube is in satisfactory position. The heart is enlarged. There is calcification in the aorta consistent with atherosclerosis. There is no pleural effusion. There is no pneumothorax. IMPRESSION: 1. Left arm PICC line tip in satisfactory position. 2. No change from the prior study done earlier the same day. RPTAT: QQ .Javi Bruno MD, MD Date Time Electronically viewed and signed by .Javi Bruno MD, on 08/22/2017 17:54 .R/
[2017-08-22] MEDS: INSULIN ASPART [NOVOLOG] 3 ML PEN SC SCH ×2 (18:00→21:00)
[2017-08-23] VITALS (49 sets, daily range): BP systolic 119–164; BP diastolic 54–86; PULSE 89–108; RESP 20–30
[2017-08-23] MEDS: INSULIN ASPART [NOVOLOG] 3 ML PEN SC SCH ×6 (01:00→21:00)
[2017-08-23] MEDS: ACCU-CHEK XX SCH (02:00)
--- NOTE | 2017-08-23 03:22 | OPR ---
DATE OF OPERATION: 08/22/2017 PREOPERATIVE DIAGNOSIS: Renal failure. POSTOPERATIVE DIAGNOSIS: Renal failure. OPERATION PERFORMED: Right femoral hemodialysis catheter placement. SURGEON: Carson Pepper MD. ANESTHESIA: Local. CONSENT: Risks, complications, and alternatives therapies were explained to the patient and the family. Consent was obtained. OPERATIVE PROCEDURE: The patient was placed supine position, prepped and draped in usual sterile fashion. One percent lidocaine was used for local anesthesia. Access was gained in the right common femoral vein. Guidewire was advanced through without any difficulty. Subcutaneous tissue was dilated. A 20- cm dialysis catheter was advanced over guidewire and secured to skin using silk sutures. Both ports of the catheter were aspirated and injected using saline solution. The patient tolerated the procedure well. Dictated By: Carson Pepper MD /rosie/valdez /Document#: [id number]
--- NOTE | 2017-08-23 03:22 | OPR ---
DATE OF OPERATION: 08/22/2017 PREOPERATIVE DIAGNOSIS: Renal failure. POSTOPERATIVE DIAGNOSIS: Renal failure. OPERATION PERFORMED: Right femoral hemodialysis catheter placement. SURGEON: Carson Pepper MD. ANESTHESIA: Local. CONSENT: Risks, complications, and alternatives therapies were explained to the patient and the family. Consent was obtained. OPERATIVE PROCEDURE: The patient was placed supine position, prepped and draped in usual sterile fashion. One percent lidocaine was used for local anesthesia. Access was gained in the right common femoral vein. Guidewire was advanced through without any difficulty. Subcutaneous tissue was dilated. A 20- cm dialysis catheter was advanced over guidewire and secured to skin using silk sutures. Both ports of the catheter were aspirated and injected using saline solution. The patient tolerated the procedure well. Dictated By: Carson Pepper MD /rosie/valdez /Document#: [id number]
--- NOTE | 2017-08-23 03:22 | OPR ---
DATE OF OPERATION: 08/22/2017 PREOPERATIVE DIAGNOSIS: Renal failure. POSTOPERATIVE DIAGNOSIS: Renal failure. OPERATION PERFORMED: Right femoral hemodialysis catheter placement. SURGEON: Carson Pepper MD. ANESTHESIA: Local. CONSENT: Risks, complications, and alternatives therapies were explained to the patient and the family. Consent was obtained. OPERATIVE PROCEDURE: The patient was placed supine position, prepped and draped in usual sterile fashion. One percent lidocaine was used for local anesthesia. Access was gained in the right common femoral vein. Guidewire was advanced through without any difficulty. Subcutaneous tissue was dilated. A 20- cm dialysis catheter was advanced over guidewire and secured to skin using silk sutures. Both ports of the catheter were aspirated and injected using saline solution. The patient tolerated the procedure well. Dictated By: Carson Pepper MD /rosie/valdez /Document#: [id number]
[2017-08-23] MEDS: PIPER-TAZO 2.25 GM (PMX) 50 ML IVPB SCH ×3 (05:58→21:03)
[2017-08-23] MEDS ORDERED: POTASSIUM CHLORIDE (SR) 20 MEQ TAB PO STA (06:56)
[2017-08-23] MEDS ORDERED: POTASSIUM CHLORIDE 250 ML IVPB ONE (07:30)
[2017-08-23] MEDS: SODIUM HYPOCHLORITE 1/40% 1L IRRIG IRR SCH ×2 (08:21→21:04)
--- NOTE | 2017-08-23 08:45 | CONS ---
Date/Time of Note Date/Time of Note DATE: 08/23/17 TIME: 08:42 Assessment/Plan Assessment/Plan Additional Assessment/Plan 1. Sepsis due to PNA 2. Acute on chronic renal failure - with severe metabolic acidosis and acute uremic encephalopathy- pt is anuric, started on HD during this admission 3. AMS due to acute uremic encephalopathy + acute metabolic encephalopathy 3. H/o recent admission to [place] for renal failure 4. H/o chronic resp failure s/p tracheostomy 5. HTN 6. H/o CVA with residual weakness 7.. IDDM Plan: d/c bicarbonate drip Pt started on HD yesterday, s/p HD x 2 hr yesterday, plan for another session of HD today,BUN/Cr improving , pt is anuric BP stable k low- KCL 40mEQ IVX 1 , will run pt on 3 K bath during hD today Hepatitis panel, HIV negative BMP at 6 pm will reevaluate him in AM for HD tomorrow Consultation Date/Type/Reason Admit Date/Time Aug 20, 2017 at 17:03 Initial Consult Date 08/20/17 Type of Consultation: NEPHROLOGY Referring Provider: HUSSEIN ROSE 24 HR Interval Summary Free Text/Dictation pt started on HD yesterday after having a long discussion with Pt son , BP stable, K low Exam/Review of Systems Vital Signs Vitals Vital Signs Date Time Temp Pulse Resp B/P Pulse Ox O2 Delivery O2 Flow Rate FiO2 08/23/17 08:00 99 28 146/67 93 Mechanical Ventilator 08/23/17 07:45 97.7 08/23/17 05:30 70 08/21/17 23:28 8.0 Intake and Output 08/22/17 08/22/17 08/23/17 15:00 23:00 07:00 Intake Total 600 ml 900 ml 350 ml Output Total 10 ml 4440 ml 25 ml Balance 590 ml -3540 ml 325 ml Exam Constitutional: non-verbal Head: normocephalic ENMT: other (+ tracheostomy on ventilator ) Neck: non-tender, supple Respiratory: congested cough, crackles/rales, diminished breath sounds Cardiovascular: S3, regular rate and rhythm Gastrointestinal: non-tender, soft Musculoskeletal: other (2+ pittign edema ), swelling Neurological: other (non verbal ,lethargic, pt is s/p tracheostomy on ventilator ) Results Result Diagram: 08/23/17 0405 08/23/17 0405 Results 24 hrs Laboratory Tests Test 08/22/17 09:22 08/22/17 18:09 08/22/17 21:03 08/22/17 21:15 Prothrombin Time 17.3 #H Prothrombin Time Ratio 1.4 INR International Normalized Ratio 1.41 Activated Partial Thromboplast Time 47.0 H Bedside Glucose 127 134 Urine Eosinophils % 0.0 Urine Random Creatinine 31.92 Urine Random Sodium 63 Urine Protein/Creatinine Ratio 18.79 Urine Total Protein Test 08/23/17 01:14 08/23/17 04:05 08/23/17 05:02 08/23/17 05:30 Bedside Glucose 130 132 White Blood Count 5.9 Red Blood Count 2.73 #L Hemoglobin 7.8 #L Hematocrit 23.8 #L Mean Corpuscular Volume 87.2 Mean Corpuscular Hemoglobin 28.6 L Mean Corpuscular Hemoglobin Concent 32.8 Red Cell Distribution Width 16.5 H Platelet Count 54 L Mean Platelet Volume 12.3 H Neutrophils % 81.6 H Lymphocytes % 11.5 L Monocytes % 6.0 Eosinophils % 0.2 Basophils % 0.0 Nucleated Red Blood Cells % 0.0 Neutrophils # 4.8 Lymphocytes # 0.7 L Monocytes # 0.4 Eosinophils # 0.0 Basophils # 0.0 Nucleated Red Blood Cells # 0.0 Sodium Level 133 L Potassium Level 2.9 *L Chloride Level 99 Carbon Dioxide Level 23 Anion Gap 14 Blood Urea Nitrogen 137 #H Creatinine 5.86 H Glucose Level 113 Calcium Level 7.8 L Hepatitis B Surface Antigen NEGATIVE Hepatitis B Core Total Antibody NEGATIVE Hepatitis C Antibody NEGATIVE HIV (1&2) Antibody NEGATIVE Lab Scanned Report BLOOD TRANSFUSION Test 08/23/17 08:20 Bedside Glucose 141 Medications Medications Current Medications Sodium Bicarbonate/ Dextrose (Na Bicarb/D5W) 1,000 ml @ 50 mls/hr Q20H IV Last administered on 08/22/17 22:28; Admin Dose 50 MLS/HR; Start 08/20/17 at 20 :30 Metoprolol Tartrate 25 mg 25 mg BID GTB Last administered on 08/22/17 21:09; Admin Dose 25 MG; Start 08/21/17 at 21:00 Piperacillin Sod/ Tazobactam Sod (Zosyn 2.25gm/ 50ml (Pmx)) 50 ml @ 100 mls/hr Q8 IVPB Last administered on 08/23/17 05:58; Admin Dose 100 MLS/HR; Start 08/22/17 at 08:30 Diagnostic Test (Pha) (Accu-Chek) 1 ea 02 XX ; Start 08/23/17 at 02:00 Insulin Aspart (Novolog Insulin Pen) NOVOLOG *MILD* ALGORITHM Q4 SC Last administered on 08/23/17 08:25; Admin Dose 1 UNIT; Start 08/22/17 at 17:00 Miscellaneous Information 1 ea NOTE XX ; Start 08/22/17 at 13:30 Glucose (Glutose) 15 gm Q15M PRN PO DECREASED GLUCOSE; Start 08/22/17 at 13:30 Glucose (Glutose) 22.5 gm Q15M PRN PO DECREASED GLUCOSE; Start 08/22/17 at 13: 30 Dextrose (D50w Syringe) 25 ml Q15M PRN IV DECREASED GLUCOSE; Start 08/22/17 at 13:30 Dextrose (D50w Syringe) 50 ml Q15M PRN IV DECREASED GLUCOSE; Start 08/22/17 at 13:30 Glucagon (Glucagen) 1 mg Q15M PRN IM DECREASED GLUCOSE; Start 08/22/17 at 13:30 Glucose 15 gm 15 gm Q15M PRN BUCCAL DECREASED GLUCOSE; Start 08/22/17 at 13:30 Potassium Chloride (KCl 40 MEQ/250 ML NS) 250 ml @ 62.5 mls/hr ONCE ONCE IVPB Last administered on 08/23/17 08:13; Admin Dose 62.5 MLS/HR; Start 08/23/17 at 07:30; Stop 08/23/17 at 11:29 Sodium Hypochlorite (Dakin'S (Dilute 1/40%)) 1 applic BID IRR Last administered on 08/23/17 08:21; Admin Dose 1 APPLIC; Start 08/23/17 at 09:00 LUCILLE CABALLERO MD Aug 23, 2017 08:45
[2017-08-23] MEDS: METOPROLOL 25 MG TAB GTB SCH ×2 (09:16→21:04)
--- NOTE | 2017-08-23 11:51 | CONS ---
Date/Time of Note Date/Time of Note DATE: 08/23/17 TIME: 11:47 Assessment/Plan Assessment/Plan Additional Assessment/Plan Ventilator setting; AC of 24, tidal volume 500, PEEP of 10, 70% FiO2. Assessment and recommendations; 1. Patient admitted with sepsis and pneumonia with superimposed congestive heart failure. 2. Renal failure, requiring hemodialysis now. With a prior history of hemodialysis. 3. Chronic respiratory failure. 4. Advanced dementia. 5. Anemia and thrombocytopenia. Continue current supportive care. Will obtain follow-up chest x-ray. Prognosis remains poor. Consultation Date/Type/Reason Admit Date/Time Aug 20, 2017 at 17:03 Initial Consult Date 08/20/17 Type of Consultation: Pulmonary/critical care Referring Provider: HUSSEIN ROSE 24 HR Interval Summary Free Text/Dictation Patient's condition remains critical. Remains chronically ventilator dependent. Due to advanced dementia patient is awake but unresponsive to any commands. Underwent hemodialysis yesterday, 2 L of fluid was removed. General exam; elderly male, morbidly obese, on ventilator via tracheostomy, awake but unresponsive. Currently in no distress Exam/Review of Systems Vital Signs Vitals Vital Signs Date Time Temp Pulse Resp B/P Pulse Ox O2 Delivery O2 Flow Rate FiO2 08/23/17 11:10 105 26 100 70 08/23/17 08:00 146/67 Mechanical Ventilator 08/23/17 07:45 97.7 08/21/17 23:28 8.0 Intake and Output 08/22/17 08/22/17 08/23/17 15:00 23:00 07:00 Intake Total 600 ml 900 ml 450 ml Output Total 10 ml 4440 ml 25 ml Balance 590 ml -3540 ml 425 ml Exam HEENT exam; supple neck, JVD difficult to see because of short neck. Patient does have multiple carious teeth. Pupils are small bilaterally. Tracheostomy in place with clean insertion site. Chest exam; diminished breath sounds bilaterally. S1-S2 audible, no murmurs. Regular rhythm. Abdomen exam; soft, protuberant. G-tube in place. Bowel sounds audible. No organomegaly felt. Extremity Exam: generalized edema. Patient has a multiple ecchymosis involving all 4 extremities. 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 Results Result Diagram: 08/23/17 0405 08/23/17 0405 Results 24 hrs Laboratory Tests Test 08/22/17 18:09 08/22/17 21:03 08/22/17 21:15 08/23/17 01:14 Bedside Glucose 127 134 130 Urine Eosinophils % 0.0 Urine Random Creatinine 31.92 Urine Random Sodium 63 Urine Protein/Creatinine Ratio 18.79 Urine Total Protein Test 08/23/17 04:05 08/23/17 05:02 08/23/17 05:30 08/23/17 08:20 White Blood Count 5.9 Red Blood Count 2.73 #L Hemoglobin 7.8 #L Hematocrit 23.8 #L Mean Corpuscular Volume 87.2 Mean Corpuscular Hemoglobin 28.6 L Mean Corpuscular Hemoglobin Concent 32.8 Red Cell Distribution Width 16.5 H Platelet Count 54 L Mean Platelet Volume 12.3 H Neutrophils % 81.6 H Lymphocytes % 11.5 L Monocytes % 6.0 Eosinophils % 0.2 Basophils % 0.0 Nucleated Red Blood Cells % 0.0 Neutrophils # 4.8 Lymphocytes # 0.7 L Monocytes # 0.4 Eosinophils # 0.0 Basophils # 0.0 Nucleated Red Blood Cells # 0.0 Sodium Level 133 L Potassium Level 2.9 *L Chloride Level 99 Carbon Dioxide Level 23 Anion Gap 14 Blood Urea Nitrogen 137 #H Creatinine 5.86 H Glucose Level 113 Calcium Level 7.8 L Hepatitis B Surface Antigen NEGATIVE Hepatitis B Core Total Antibody NEGATIVE Hepatitis C Antibody NEGATIVE HIV (1&2) Antibody NEGATIVE Bedside Glucose 132 141 Lab Scanned Report BLOOD TRANSFUSION Medications Medications Current Medications Metoprolol Tartrate 25 mg 25 mg BID GTB Last administered on 08/23/17 09:16; Admin Dose 25 MG; Start 08/21/17 at 21:00 Piperacillin Sod/ Tazobactam Sod (Zosyn 2.25gm/ 50ml (Pmx)) 50 ml @ 100 mls/hr Q8 IVPB Last administered on 08/23/17 05:58; Admin Dose 100 MLS/HR; Start 08/22/17 at 08:30 Diagnostic Test (Pha) (Accu-Chek) 1 ea 02 XX ; Start 08/23/17 at 02:00 Insulin Aspart (Novolog Insulin Pen) NOVOLOG *MILD* ALGORITHM Q4 SC Last administered on 08/23/17 08:25; Admin Dose 1 UNIT; Start 08/22/17 at 17:00 Miscellaneous Information 1 ea NOTE XX ; Start 08/22/17 at 13:30 Glucose (Glutose) 15 gm Q15M PRN PO DECREASED GLUCOSE; Start 08/22/17 at 13:30 Glucose (Glutose) 22.5 gm Q15M PRN PO DECREASED GLUCOSE; Start 08/22/17 at 13: 30 Dextrose (D50w Syringe) 25 ml Q15M PRN IV DECREASED GLUCOSE; Start 08/22/17 at 13:30 Dextrose (D50w Syringe) 50 ml Q15M PRN IV DECREASED GLUCOSE; Start 08/22/17 at 13:30 Glucagon (Glucagen) 1 mg Q15M PRN IM DECREASED GLUCOSE; Start 08/22/17 at 13:30 Glucose (Glutose) 15 gm Q15M PRN BUCCAL DECREASED GLUCOSE; Start 08/22/17 at 13 :30 Sodium Hypochlorite (Dakin'S (Dilute 1/40%)) 1 applic BID IRR Last administered on 08/23/17t 08:21; Admin Dose 1 APPLIC; Start 08/23/17 at 09:00 ODETTE MCKEON Aug 23, 2017 11:51
--- NOTE | 2017-08-23 12:05 | PN ---
Date/Time of Note Date/Time of Note DATE: 08/23/17 TIME: 12:01 Assessment/Plan VTE Prophylaxis VTE Prophylaxis Intervention: SCD's Lines/Catheters IV Catheter Type (from Nrs): MARCEL CATH Urinary Cath still in place: Yes Reason Cath still needed: urinary retention Assessment/Plan Chief Complaint/Hosp Course Assessment/Plan -Acute on chronic CKD. Continue hemodialysis. Dr. Nieto is following in nephrology consultation. -Ventilator dependent respiratory failure with tracheostomy -Pulmonary edema versus multifocal pneumonia, continue broad-spectrum antibiotics -Positive troponin in the setting of renal disease, Dr. Zuniga is following in cardiology consultation -Acute metabolic encephalopathy -Anemia, s/p blood transfusion, f/up on stool for OB, continue to monitor hemoglobin and hematocrit -DM -Dysphagia with PEG Further recommendations based on clinical course. Plan of care discussed with Dr. Chávez. Problems: Exam/Review of Systems Vital Signs Vitals Vital Signs Date Time Temp Pulse Resp B/P Pulse Ox O2 Delivery O2 Flow Rate FiO2 08/23/17 11:10 105 26 100 70 08/23/17 08:00 146/67 Mechanical Ventilator 08/23/17 07:45 97.7 08/21/17 23:28 8.0 Intake and Output 08/22/17 08/22/17 08/23/17 15:00 23:00 07:00 Intake Total 600 ml 900 ml 450 ml Output Total 10 ml 4440 ml 25 ml Balance 590 ml -3540 ml 425 ml Exam Constitutional: frail Neck: other (Tracheostomy), supple Respiratory: other (Rhonchi) Cardiovascular: nl pulses Gastrointestinal: non-tender, other (G-tube), soft Extremities: normal pulses Results Result Diagram: 08/23/17 0405 08/23/17 0405 Results 24 hrs Laboratory Tests Test 08/22/17 18:09 08/22/17 21:03 08/22/17 21:15 08/23/17 01:14 Bedside Glucose 127 134 130 Urine Eosinophils % 0.0 Urine Random Creatinine 31.92 Urine Random Sodium 63 Urine Protein/Creatinine Ratio 18.79 Urine Total Protein Test 08/23/17 04:05 08/23/17 05:02 08/23/17 05:30 08/23/17 08:20 White Blood Count 5.9 Red Blood Count 2.73 #L Hemoglobin 7.8 #L Hematocrit 23.8 #L Mean Corpuscular Volume 87.2 Mean Corpuscular Hemoglobin 28.6 L Mean Corpuscular Hemoglobin Concent 32.8 Red Cell Distribution Width 16.5 H Platelet Count 54 L Mean Platelet Volume 12.3 H Neutrophils % 81.6 H Lymphocytes % 11.5 L Monocytes % 6.0 Eosinophils % 0.2 Basophils % 0.0 Nucleated Red Blood Cells % 0.0 Neutrophils # 4.8 Lymphocytes # 0.7 L Monocytes # 0.4 Eosinophils # 0.0 Basophils # 0.0 Nucleated Red Blood Cells # 0.0 Sodium Level 133 L Potassium Level 2.9 *L Chloride Level 99 Carbon Dioxide Level 23 Anion Gap 14 Blood Urea Nitrogen 137 #H Creatinine 5.86 H Glucose Level 113 Calcium Level 7.8 L Hepatitis B Surface Antigen NEGATIVE Hepatitis B Core Total Antibody NEGATIVE Hepatitis C Antibody NEGATIVE HIV (1&2) Antibody NEGATIVE Bedside Glucose 132 141 Lab Scanned Report BLOOD TRANSFUSION Medications Medications Current Medications Metoprolol Tartrate 25 mg 25 mg BID GTB Last administered on 08/23/17 09:16; Admin Dose 25 MG; Start 08/21/17 at 21:00 Piperacillin Sod/ Tazobactam Sod (Zosyn 2.25gm/ 50ml (Pmx)) 50 ml @ 100 mls/hr Q8 IVPB Last administered on 08/23/17 05:58; Admin Dose 100 MLS/HR; Start 08/22/17 at 08:30 Diagnostic Test (Pha) (Accu-Chek) 1 ea 02 XX ; Start 08/23/17 at 02:00 Insulin Aspart (Novolog Insulin Pen) NOVOLOG *MILD* ALGORITHM Q4 SC Last administered on 08/23/17 08:25; Admin Dose 1 UNIT; Start 08/22/17 at 17:00 Miscellaneous Information 1 ea NOTE XX ; Start 08/22/17 at 13:30 Glucose (Glutose) 15 gm Q15M PRN PO DECREASED GLUCOSE; Start 08/22/17 at 13:30 Glucose (Glutose) 22.5 gm Q15M PRN PO DECREASED GLUCOSE; Start 08/22/17 at 13: 30 Dextrose (D50w Syringe) 25 ml Q15M PRN IV DECREASED GLUCOSE; Start 08/22/17 at 13:30 Dextrose (D50w Syringe) 50 ml Q15M PRN IV DECREASED GLUCOSE; Start 08/22/17 at 13:30 Glucagon (Glucagen) 1 mg Q15M PRN IM DECREASED GLUCOSE; Start 08/22/17 at 13:30 Glucose (Glutose) 15 gm Q15M PRN BUCCAL DECREASED GLUCOSE; Start 08/22/17 at 13 :30 Sodium Hypochlorite (Dakin'S (Dilute 1/40%)) 1 applic BID IRR Last administered on 08/23/17 08:21; Admin Dose 1 APPLIC; Start 08/23/17 at 09:00 ARLETH MCKNIGHT Aug 23, 2017 12:04
--- NOTE | 2017-08-23 12:21 | CONS ---
Date/Time of Note Date/Time of Note DATE: 08/23/17 TIME: 12:18 Assessment/Plan Assessment/Plan Additional Assessment/Plan 1. Positive troponin status. Significant in the setting of renal failure- slowly downtrending - stable now, med rx for now 2. Abnormal electrocardiogram, nonspecific ST-T abnormalities- non-spec st-t changes 3. Hypertension-well controlled 4. Respiratory failure, chronic - trach in place in place 5. Renal failure, acute on chronic- HD as needed 6. Dysphagia, status post G-tube. 7. Anemia, severe - replace as needed 8. Thrombocytopenia, severe. 9. Encephalopathy. 10. History of CVA- supportive care now. 11. Diabetes mellitus. 12. Hyponatremia Consultation Date/Type/Reason Admit Date/Time Aug 20, 2017 at 17:03 Initial Consult Date 08/20/17 Type of Consultation: Pulmonary/critical care Referring Provider: HUSSEIN ROSE 24 HR Interval Summary Free Text/Dictation No acute events - HD removed 3 L - con't Med rx - no hemodynamic instability now. ROS: No fever, no chills, no nausea, no vomiting, no diarrhea/constipation No recent weight changes No chest pain, no PND, no orthopnea No dizziness, blurred vision No thirst, no heat or cold intolerance (per nurse) Exam/Review of Systems Vital Signs Vitals Vital Signs Date Time Temp Pulse Resp B/P Pulse Ox O2 Delivery O2 Flow Rate FiO2 08/23/17 11:10 105 26 100 70 08/23/17 08:00 146/67 Mechanical Ventilator 08/23/17 07:45 97.7 08/21/17 23:28 8.0 Intake and Output 08/22/17 08/22/17 08/23/17 15:00 23:00 07:00 Intake Total 600 ml 900 ml 450 ml Output Total 10 ml 4440 ml 25 ml Balance 590 ml -3540 ml 425 ml Exam General: WN/WD/NAD, AOx comfortable HEENT: Unicetric/atraumatic/EOMI (does not follow commands) NECK: trach Lymph: no lymphadenopathy HEART: regular with no S3, II/ systolic murmur at apex LUNGS: Coarse sounds ABD: soft, NT, ND, +BS : Intact Neuro: non focal SKIN: chronic changes EXT: trace edema, R groin HD cath Results Result Diagram: 08/23/17 0405 08/23/17 0405 Results 24 hrs Laboratory Tests Test 08/22/17 18:09 08/22/17 21:03 08/22/17 21:15 08/23/17 01:14 Bedside Glucose 127 134 130 Urine Eosinophils % 0.0 Urine Random Creatinine 31.92 Urine Random Sodium 63 Urine Protein/Creatinine Ratio 18.79 Urine Total Protein Test 08/23/17 04:05 08/23/17 05:02 08/23/17 05:30 08/23/17 08:20 White Blood Count 5.9 Red Blood Count 2.73 #L Hemoglobin 7.8 #L Hematocrit 23.8 #L Mean Corpuscular Volume 87.2 Mean Corpuscular Hemoglobin 28.6 L Mean Corpuscular Hemoglobin Concent 32.8 Red Cell Distribution Width 16.5 H Platelet Count 54 L Mean Platelet Volume 12.3 H Neutrophils % 81.6 H Lymphocytes % 11.5 L Monocytes % 6.0 Eosinophils % 0.2 Basophils % 0.0 Nucleated Red Blood Cells % 0.0 Neutrophils # 4.8 Lymphocytes # 0.7 L Monocytes # 0.4 Eosinophils # 0.0 Basophils # 0.0 Nucleated Red Blood Cells # 0.0 Sodium Level 133 L Potassium Level 2.9 *L Chloride Level 99 Carbon Dioxide Level 23 Anion Gap 14 Blood Urea Nitrogen 137 #H Creatinine 5.86 H Glucose Level 113 Calcium Level 7.8 L Hepatitis B Surface Antigen NEGATIVE Hepatitis B Core Total Antibody NEGATIVE Hepatitis C Antibody NEGATIVE HIV (1&2) Antibody NEGATIVE Bedside Glucose 132 141 Lab Scanned Report BLOOD TRANSFUSION Medications Medications Current Medications Metoprolol Tartrate 25 mg 25 mg BID GTB Last administered on 08/23/17 09:16; Admin Dose 25 MG; Start 08/21/17 at 21:00 Piperacillin Sod/ Tazobactam Sod (Zosyn 2.25gm/ 50ml (Pmx)) 50 ml @ 100 mls/hr Q8 IVPB Last administered on 08/23/17 05:58; Admin Dose 100 MLS/HR; Start 08/22/17 at 08:30 Diagnostic Test (Pha) (Accu-Chek) 1 ea 02 XX ; Start 08/23/17 at 02:00 Insulin Aspart (Novolog Insulin Pen) NOVOLOG *MILD* ALGORITHM Q4 SC Last administered on 08/23/17 08:25; Admin Dose 1 UNIT; Start 08/22/17 at 17:00 Miscellaneous Information 1 ea NOTE XX ; Start 08/22/17 at 13:30 Glucose (Glutose) 15 gm Q15M PRN PO DECREASED GLUCOSE; Start 08/22/17 at 13:30 Glucose (Glutose) 22.5 gm Q15M PRN PO DECREASED GLUCOSE; Start 08/22/17 at 13: 30 Dextrose (D50w Syringe) 25 ml Q15M PRN IV DECREASED GLUCOSE; Start 08/22/17 at 13:30 Dextrose (D50w Syringe) 50 ml Q15M PRN IV DECREASED GLUCOSE; Start 08/22/17 at 13:30 Glucagon (Glucagen) 1 mg Q15M PRN IM DECREASED GLUCOSE; Start 08/22/17 at 13:30 Glucose (Glutose) 15 gm Q15M PRN BUCCAL DECREASED GLUCOSE; Start 08/22/17 at 13 :30 Sodium Hypochlorite (Dakin'S (Dilute 1/40%)) 1 applic BID IRR Last administered on 08/23/17t 08:21; Admin Dose 1 APPLIC; Start 08/23/17 at 09:00 ABE SILVA MD Aug 23, 2017 12:21
[2017-08-24] VITALS (38 sets, daily range): BP systolic 126–161; BP diastolic 51–81; PULSE 84–116; RESP 14–27
[2017-08-24] MEDS: INSULIN ASPART [NOVOLOG] 3 ML PEN SC SCH ×6 (01:00→22:10)
[2017-08-24] MEDS: ACCU-CHEK XX SCH (02:00)
[2017-08-24] MEDS: PIPER-TAZO 2.25 GM (PMX) 50 ML IVPB SCH ×3 (05:28→21:38)
[2017-08-24] MEDS ORDERED: POTASSIUM CHLORIDE (SR) 20 MEQ TAB PO ONE (06:50)
[2017-08-24] MEDS ORDERED: POTASSIUM PHOSPHATE 20 MEQ in SOD CHLORIDE 0.9% 250 ML IVPB ONE (07:00)
[2017-08-24] MEDS ORDERED: MAGNESIUM SULFATE 2 GM/50 ML 50 ML IVPB ONE (07:00)
[2017-08-24] MEDS ORDERED: POTASSIUM CHLORIDE 50 ML IVPB SCH (07:00)
--- NOTE | 2017-08-24 08:16 | RADRPT ---
PROCEDURE: XR Chest. CLINICAL INDICATION: CHF TECHNIQUE: AP Portable chest. COMPARISON: 08/22/2017 FINDINGS: The patient is rotated. There is tubing artifact over the lung apices. The left central line is in s atisfactory position. tracheostomy tube is midline. No pneumothorax is seen. Extensive bilateral int erstitial and alveolar opacities are similar in appearance considering for difference in technique a nd position. Small bilateral pleural effusions, greater on the right with thickening of the right mi nor fissure. The cardiac silhouette is within normal limits. The aortic arch is calcified The osseo us structures are intact. IMPRESSION: Extensive bilateral airspace opacities, and small bilateral pleural effusions, greater on the right . No significant change considering for difference in technique and position. Tracheostomy tube and left central line in place. Physician Benjamín Date Time Electronically viewed and signed by Physician Benjamín on 08/24/2017 08:15 /
--- NOTE | 2017-08-24 08:59 | CONS ---
Date/Time of Note Date/Time of Note DATE: 08/24/17 TIME: 08:56 Assessment/Plan Assessment/Plan Additional Assessment/Plan 1. Sepsis due to PNA 2. Acute on chronic renal failure - with severe metabolic acidosis and acute uremic encephalopathy- pt is anuric, started on HD during this admission 3. AMS due to acute uremic encephalopathy + acute metabolic encephalopathy 3. H/o recent admission to [place] for renal failure 4. H/o chronic resp failure s/p tracheostomy 5. HTN 6. H/o CVA with residual weakness 7.. IDDM Plan: started on HD during this admission, no plan for HD today, will order HD for tomorrow k low- KCL 20mEQ IVX 1 Hepatitis panel, HIV negative will conitnue to follow up will wait pt to be more stable and platelets to stabilize before planning for joint terminal attack controller HD and permacath,d/w son on phone Consultation Date/Type/Reason Admit Date/Time Aug 20, 2017 at 17:03 Initial Consult Date 08/20/17 Type of Consultation: NEPHROLOGY Referring Provider: HUSSEIN ROSE 24 HR Interval Summary Free Text/Dictation s/p HD yesterday, K low, no plan for HD today Exam/Review of Systems Vital Signs Vitals Vital Signs Date Time Temp Pulse Resp B/P Pulse Ox O2 Delivery O2 Flow Rate FiO2 08/24/17 07:24 101 24 100 60 08/24/17 06:00 151/63 Mechanical Ventilator 08/24/17 04:00 98.5 08/21/17 23:28 8.0 Intake and Output 08/23/17 08/23/17 08/24/17 15:00 23:00 07:00 Intake Total 850 ml 270 ml 190 ml Output Total 2500 ml 35 ml 30 ml Balance -1650 ml 235 ml 160 ml Exam Constitutional: non-verbal ENMT: other (+ tracheostomy on ventilator )- minimal bleedign at trach site Respiratory: congested cough, crackles/rales, diminished breath sounds Cardiovascular: S3, regular rate and rhythm Gastrointestinal: non-tender, soft Musculoskeletal: other (2+ pittign edema ), swelling Neurological: other (non verbal ,lethargic, pt is s/p tracheostomy on ventilator ) Results Result Diagram: 08/24/17 0355 08/24/17 0355 Results 24 hrs Laboratory Tests Test 08/23/17 13:09 08/23/17 17:04 08/23/17 21:02 08/24/17 01:19 Bedside Glucose 104 107 110 118 Test 08/24/17 03:55 08/24/17 05:29 White Blood Count 7.3 # Red Blood Count 2.71 L Hemoglobin 7.6 L Hematocrit 23.8 L Mean Corpuscular Volume 87.8 Mean Corpuscular Hemoglobin 28.0 L Mean Corpuscular Hemoglobin Concent 31.9 L Red Cell Distribution Width 16.8 H Platelet Count 63 L Mean Platelet Volume 12.5 H Neutrophils % 75.6 Lymphocytes % 16.9 Monocytes % 5.2 Eosinophils % 1.7 Basophils % 0.0 Nucleated Red Blood Cells % 0.0 Neutrophils # 5.5 Lymphocytes # 1.2 Monocytes # 0.4 Eosinophils # 0.1 Basophils # 0.0 Nucleated Red Blood Cells # 0.0 Sodium Level 136 Potassium Level 3.2 L Chloride Level 102 Carbon Dioxide Level 25 Anion Gap 12 Blood Urea Nitrogen 99 #H Creatinine 4.73 #H Glucose Level 111 Calcium Level 8.1 L Bedside Glucose 114 Medications Medications Current Medications Metoprolol Tartrate 25 mg 25 mg BID GTB Last administered on 08/23/17 21:04; Admin Dose 25 MG; Start 08/21/17 at 21:00 Piperacillin Sod/ Tazobactam Sod (Zosyn 2.25gm/ 50ml (Pmx)) 50 ml @ 100 mls/hr Q8 IVPB Last administered on 08/24/17 05:28; Admin Dose 100 MLS/HR; Start 08/22/17 at 08:30 Diagnostic Test (Pha) (Accu-Chek) 1 ea 02 XX ; Start 08/23/17 at 02:00 Insulin Aspart (Novolog Insulin Pen) NOVOLOG *MILD* ALGORITHM Q4 SC Last administered on 08/23/17 08:25; Admin Dose 1 UNIT; Start 08/22/17 at 17:00 Miscellaneous Information 1 ea NOTE XX ; Start 08/22/17 at 13:30 Glucose (Glutose) 15 gm Q15M PRN PO DECREASED GLUCOSE; Start 08/22/17 at 13:30 Glucose (Glutose) 22.5 gm Q15M PRN PO DECREASED GLUCOSE; Start 08/22/17 at 13: 30 Dextrose (D50w Syringe) 25 ml Q15M PRN IV DECREASED GLUCOSE; Start 08/22/17 at 13:30 Dextrose (D50w Syringe) 50 ml Q15M PRN IV DECREASED GLUCOSE; Start 08/22/17 at 13:30 Glucagon (Glucagen) 1 mg Q15M PRN IM DECREASED GLUCOSE; Start 08/22/17 at 13:30 Glucose (Glutose) 15 gm Q15M PRN BUCCAL DECREASED GLUCOSE; Start 08/22/17 at 13 :30 Sodium Hypochlorite (Dakin'S (Dilute 1/40%)) 1 applic BID IRR Last administered on 08/23/17t 21:04; Admin Dose 1 APPLIC; Start 08/23/17 at 09:00 LUCILLE CABALLERO MD Aug 24, 2017 08:59
[2017-08-24] MEDS: SODIUM HYPOCHLORITE 1/40% 1L IRRIG IRR SCH ×2 (09:18→21:44)
[2017-08-24] MEDS: METOPROLOL 25 MG TAB GTB SCH (09:19)
--- NOTE | 2017-08-24 09:59 | CONS ---
Date/Time of Note Date/Time of Note DATE: 08/24/17 TIME: 09:54 Assessment/Plan Assessment/Plan Chief Complaint/Hosp Course IMPRESSION: 1. Positive troponin status. Significant in the setting of renal failure-No sig uptrend 2. Abnormal electrocardiogram, nonspecific ST-T abnormalities. 3. Hypertension-well controlled 4. Respiratory failure, chronic. 5. Renal failure, acute on chronic. 6. Dysphagia, status post G-tube. 7. Anemia-ongoing 8. Thrombocytopenia-ongoing 9. Encephalopathy. 10. History of CVA. 11. Diabetes mellitus. 12. Hypokalemia 14. Cardiomyopathy-depressed EF 40% Recc: -Tele -Continue BB with slight increase to improve BP/HR in the setting of HTN/tachy -trend cardiac enzymes -follow volume status with possible initiation of HD after family discussion -No ASA given severe anemia and consider transfusion -Continue abx's and f/u cx data Problems: Consultation Date/Type/Reason Admit Date/Time Aug 20, 2017 at 17:03 Initial Consult Date 08/20/17 Type of Consultation: cardiology Reason for Consultation positive troponin Referring Provider: HUSSEIN ROSE Exam/Review of Systems Vital Signs Vitals Vital Signs Date Time Temp Pulse Resp B/P Pulse Ox O2 Delivery O2 Flow Rate FiO2 08/24/17 08:00 99 08/24/17 07:24 24 100 60 08/24/17 06:00 151/63 Mechanical Ventilator 08/24/17 04:00 98.5 08/21/17 23:28 8.0 Intake and Output 08/23/17 08/23/17 08/24/17 15:00 23:00 07:00 Intake Total 850 ml 270 ml 190 ml Output Total 2500 ml 35 ml 30 ml Balance -1650 ml 235 ml 160 ml Exam Review of Systems: CONSTITUTIONAL: No fevers, chills. PULMONARY: trached CARDIOVASCULAR: No chest pain/palpitations GASTROINTESTINAL: No nausea/vomiting. GENITOURINARY: No hematuria/dysuria. MUSCULOSKELETAL: No myagias/arthalgias. PSYCHIATRIC: The patient denies depression. NEUROLOGIC: encephalopathic Constitutional: alert Psych: no complaints Head: normocephalic ENMT: other (upper airway rhoncherous sounds) Neck: jvd (9 cm water), supple Respiratory: diminished breath sounds (at bases/B) Cardiovascular: regular rate and rhythm Gastrointestinal: non-tender, soft Musculoskeletal: muscle weakness (generalized) Extremities: other (contracted with edema Bilteral) Neurological: other (Encephalopathic) Results Result Diagram: 08/24/17 0355 08/24/17 0355 Results 24 hrs Laboratory Tests Test 08/23/17 13:09 08/23/17 17:04 08/23/17 21:02 08/24/17 01:19 Bedside Glucose 104 107 110 118 Test 08/24/17 03:55 08/24/17 05:29 08/24/17 09:17 White Blood Count 7.3 # Red Blood Count 2.71 L Hemoglobin 7.6 L Hematocrit 23.8 L Mean Corpuscular Volume 87.8 Mean Corpuscular Hemoglobin 28.0 L Mean Corpuscular Hemoglobin Concent 31.9 L Red Cell Distribution Width 16.8 H Platelet Count 63 L Mean Platelet Volume 12.5 H Neutrophils % 75.6 Lymphocytes % 16.9 Monocytes % 5.2 Eosinophils % 1.7 Basophils % 0.0 Nucleated Red Blood Cells % 0.0 Neutrophils # 5.5 Lymphocytes # 1.2 Monocytes # 0.4 Eosinophils # 0.1 Basophils # 0.0 Nucleated Red Blood Cells # 0.0 Sodium Level 136 Potassium Level 3.2 L Chloride Level 102 Carbon Dioxide Level 25 Anion Gap 12 Blood Urea Nitrogen 99 #H Creatinine 4.73 #H Glucose Level 111 Calcium Level 8.1 L Bedside Glucose 114 151 Medications Medications Current Medications Metoprolol Tartrate 25 mg 25 mg BID GTB Last administered on 08/24/17 09:19; Admin Dose 25 MG; Start 08/21/17 at 21:00 Piperacillin Sod/ Tazobactam Sod (Zosyn 2.25gm/ 50ml (Pmx)) 50 ml @ 100 mls/hr Q8 IVPB Last administered on 08/24/17 05:28; Admin Dose 100 MLS/HR; Start 08/22/17 at 08:30 Diagnostic Test (Pha) (Accu-Chek) 1 ea 02 XX ; Start 08/23/17 at 02:00 Insulin Aspart (Novolog Insulin Pen) NOVOLOG *MILD* ALGORITHM Q4 SC Last administered on 08/24/17 09:21; Admin Dose 1 UNIT; Start 08/22/17 at 17:00 Miscellaneous Information 1 ea NOTE XX ; Start 08/22/17 at 13:30 Glucose (Glutose) 15 gm Q15M PRN PO DECREASED GLUCOSE; Start 08/22/17 at 13:30 Glucose (Glutose) 22.5 gm Q15M PRN PO DECREASED GLUCOSE; Start 08/22/17 at 13: 30 Dextrose (D50w Syringe) 25 ml Q15M PRN IV DECREASED GLUCOSE; Start 08/22/17 at 13:30 Dextrose (D50w Syringe) 50 ml Q15M PRN IV DECREASED GLUCOSE; Start 08/22/17 at 13:30 Glucagon (Glucagen) 1 mg Q15M PRN IM DECREASED GLUCOSE; Start 08/22/17 at 13:30 Glucose (Glutose) 15 gm Q15M PRN BUCCAL DECREASED GLUCOSE; Start 08/22/17 at 13 :30 Sodium Hypochlorite 1 applic 1 applic BID IRR Last administered on 08/24/17t 09 :18; Admin Dose 1 APPLIC; Start 08/23/17 at 09:00 Potassium Chloride/Sodium Chloride (KCl/NS) 110 ml @ 55 mls/hr ONCE ONCE IVPB ; Start 08/24/17 at 10:00; Stop 08/24/17 at 11:59 BRENTON NORTON Aug 24, 2017 09:59
[2017-08-24] MEDS ORDERED: POTASSIUM CHLORIDE 20 MEQ in SOD CHLORIDE 0.9% 100 ML IVPB ONE (10:00)
--- NOTE | 2017-08-24 11:29 | PN ---
Date/Time of Note Date/Time of Note DATE: 08/24/17 TIME: 11:25 Assessment/Plan VTE Prophylaxis VTE Prophylaxis Intervention: SCD's Lines/Catheters IV [facility] Type ([facility] PICC Line Central line still needed: Yes Urinary Cath still in place: Yes Reason Cath still needed: urinary retention Assessment/Plan Chief Complaint/Hosp Course Patient tolerated G-tube feeding well, status post hemodialysis yesterday, hemoglobin is 7.6, transfuse 1 unit of packed red blood cells. Patient is undergoing weaning per pulmonology. Assessment/Plan -Acute on chronic CKD. Continue hemodialysis. Dr. Nieto is following in nephrology consultation. -Ventilator dependent respiratory failure with tracheostomy. -Pulmonary edema versus multifocal pneumonia, continue broad-spectrum antibiotics -Positive troponin in the setting of renal disease, Dr. Zuniga is following in cardiology consultation -Acute metabolic encephalopathy -Anemia, s/p blood transfusion, f/up on stool for OB, continue to monitor hemoglobin and hematocrit -DM, NovoLog per sliding scale. -Dysphagia with PEG Further recommendations based on clinical course. Plan of care discussed with Dr. Chávez. Problems: Exam/Review of Systems Vital Signs Vitals Vital Signs Date Time Temp Pulse Resp B/P Pulse Ox O2 Delivery O2 Flow Rate FiO2 08/24/17 10:12 88 24 98 50 08/24/17 10:00 140/70 Mechanical Ventilator 08/24/17 08:00 98.1 08/21/17 23:28 8.0 Intake and Output 08/23/17 08/23/17 08/24/17 15:00 23:00 07:00 Intake Total 850 ml 270 ml 190 ml Output Total 2500 ml 35 ml 30 ml Balance -1650 ml 235 ml 160 ml Exam Constitutional: frail Neck: other (Tracheostomy), supple Respiratory: other (scattered Rhonchi) Cardiovascular: nl pulses Gastrointestinal: non-tender, other (G-tube), soft Extremities: normal pulses Results Result Diagram: 08/24/17 0355 08/24/17 0355 Results 24 hrs Laboratory Tests Test 08/23/17 13:09 08/23/17 17:04 08/23/17 21:02 08/24/17 01:19 Bedside Glucose 104 107 110 118 Test 08/24/17 03:55 08/24/17 05:29 08/24/17 09:17 White Blood Count 7.3 # Red Blood Count 2.71 L Hemoglobin 7.6 L Hematocrit 23.8 L Mean Corpuscular Volume 87.8 Mean Corpuscular Hemoglobin 28.0 L Mean Corpuscular Hemoglobin Concent 31.9 L Red Cell Distribution Width 16.8 H Platelet Count 63 L Mean Platelet Volume 12.5 H Neutrophils % 75.6 Lymphocytes % 16.9 Monocytes % 5.2 Eosinophils % 1.7 Basophils % 0.0 Nucleated Red Blood Cells % 0.0 Neutrophils # 5.5 Lymphocytes # 1.2 Monocytes # 0.4 Eosinophils # 0.1 Basophils # 0.0 Nucleated Red Blood Cells # 0.0 Sodium Level 136 Potassium Level 3.2 L Chloride Level 102 Carbon Dioxide Level 25 Anion Gap 12 Blood Urea Nitrogen 99 #H Creatinine 4.73 #H Glucose Level 111 Calcium Level 8.1 L Bedside Glucose 114 151 Medications Medications Current Medications Piperacillin Sod/ Tazobactam Sod (Zosyn 2.25gm/ 50ml (Pmx)) 50 ml @ 100 mls/hr Q8 IVPB Last administered on 08/24/17 05:28; Admin Dose 100 MLS/HR; Start 08/22/17 at 08:30 Diagnostic Test (Pha) (Accu-Chek) 1 ea 02 XX ; Start 08/23/17 at 02:00 Insulin Aspart (Novolog Insulin Pen) NOVOLOG *MILD* ALGORITHM Q4 SC Last administered on 08/24/17 09:21; Admin Dose 1 UNIT; Start 08/22/17 at 17:00 Miscellaneous Information 1 ea NOTE XX ; Start 08/22/17 at 13:30 Glucose (Glutose) 15 gm Q15M PRN PO DECREASED GLUCOSE; Start 08/22/17 at 13:30 Glucose (Glutose) 22.5 gm Q15M PRN PO DECREASED GLUCOSE; Start 08/22/17 at 13: 30 Dextrose (D50w Syringe) 25 ml Q15M PRN IV DECREASED GLUCOSE; Start 08/22/17 at 13:30 Dextrose (D50w Syringe) 50 ml Q15M PRN IV DECREASED GLUCOSE; Start 08/22/17 at 13:30 Glucagon (Glucagen) 1 mg Q15M PRN IM DECREASED GLUCOSE; Start 08/22/17 at 13:30 Glucose (Glutose) 15 gm Q15M PRN BUCCAL DECREASED GLUCOSE; Start 08/22/17 at 13 :30 Sodium Hypochlorite 1 applic 1 applic BID IRR Last administered on 08/24/17t 09 :18; Admin Dose 1 APPLIC; Start 08/23/17 at 09:00 Potassium Chloride/Sodium Chloride (KCl/NS) 110 ml @ 55 mls/hr ONCE ONCE IVPB ; Start 08/24/17 at 10:00; Stop 08/24/17 at 11:59 Miscellaneous Information (*Rx Drug Level Order Reminder*) VANCOMYCIN RANDOM LEVEL... ONCE ONCE XX ; Start 08/25/17 at 05:00; Stop 08/25/17 at 05:01 Metoprolol Tartrate (Lopressor) 50 mg BID GTB ; Start 08/24/17 at 21:00 ARLETH MCKNIGHT Aug 24, 2017 11:29
[2017-08-24] MEDS ORDERED: SOD CHLORIDE 0.9% 250 ML IV* ONE (11:52)
--- NOTE | 2017-08-24 12:25 | CONS ---
Date/Time of Note Date/Time of Note DATE: 08/24/17 TIME: 12:23 Assessment/Plan Assessment/Plan Additional Assessment/Plan Ventilator setting; AC of 24, tidal volume 500, PEEP of 10, 60% FiO2. Chest x-ray was reviewed from today which is showing bilateral pneumonia and pulmonary edema. Assessment and recommendations; 1. Patient with a history of chronic respiratory failure and advanced dementia admitted for CHF and pneumonia. 2. Pancytopenia. 3. History of tracheostomy and G-tube placement. Continue current treatment. Wean down FiO2 as tolerated. Consultation Date/Type/Reason Admit Date/Time Aug 20, 2017 at 17:03 Initial Consult Date 08/20/17 Type of Consultation: Pulmonary/critical care Referring Provider: HUSSEIN ROSE 24 HR Interval Summary Free Text/Dictation Patient's condition remains critical. Still requiring high FiO2 for O2 saturation maintenance. Patient remains essentially unresponsive due to advanced dementia. General exam; elderly male, on ventilator via tracheostomy, unresponsive, currently in no distress. Exam/Review of Systems Vital Signs Vitals Vital Signs Date Time Temp Pulse Resp B/P Pulse Ox O2 Delivery O2 Flow Rate FiO2 08/24/17 11:34 24 50 08/24/17 10:12 88 98 08/24/17 10:00 140/70 Mechanical Ventilator 08/24/17 08:00 98.1 08/21/17 23:28 8.0 Intake and Output 08/23/17 08/23/17 08/24/17 15:00 23:00 07:00 Intake Total 850 ml 270 ml 190 ml Output Total 2500 ml 35 ml 30 ml Balance -1650 ml 235 ml 160 ml Exam HEENT exam; supple neck, positive JVD. No lymphadenopathy. Midline trachea. No thyromegaly. On ventilator via tracheostomy. Chest exam; diminished breath sounds bilaterally with scattered crackles. S1- S2 audible, no murmurs. Regular rhythm. Abdomen exam; soft, G-tube in place. Bowel sounds audible. No organomegaly. Extremity exam; trace edema. [employer] exam; patient remains unresponsive. Results Result Diagram: 08/24/17 0355 08/24/17 0355 Results 24 hrs Laboratory Tests Test 08/23/17 13:09 08/23/17 17:04 08/23/17 21:02 08/24/17 01:19 Bedside Glucose 104 107 110 118 Test 08/24/17 03:55 08/24/17 05:29 08/24/17 09:17 White Blood Count 7.3 # Red Blood Count 2.71 L Hemoglobin 7.6 L Hematocrit 23.8 L Mean Corpuscular Volume 87.8 Mean Corpuscular Hemoglobin 28.0 L Mean Corpuscular Hemoglobin Concent 31.9 L Red Cell Distribution Width 16.8 H Platelet Count 63 L Mean Platelet Volume 12.5 H Neutrophils % 75.6 Lymphocytes % 16.9 Monocytes % 5.2 Eosinophils % 1.7 Basophils % 0.0 Nucleated Red Blood Cells % 0.0 Neutrophils # 5.5 Lymphocytes # 1.2 Monocytes # 0.4 Eosinophils # 0.1 Basophils # 0.0 Nucleated Red Blood Cells # 0.0 Sodium Level 136 Potassium Level 3.2 L Chloride Level 102 Carbon Dioxide Level 25 Anion Gap 12 Blood Urea Nitrogen 99 #H Creatinine 4.73 #H Glucose Level 111 Calcium Level 8.1 L Bedside Glucose 114 151 Medications Medications Current Medications Piperacillin Sod/ Tazobactam Sod (Zosyn 2.25gm/ 50ml (Pmx)) 50 ml @ 100 mls/hr Q8 IVPB Last administered on 08/24/17 05:28; Admin Dose 100 MLS/HR; Start 08/22/17 at 08:30 Diagnostic Test (Pha) (Accu-Chek) 1 ea 02 XX ; Start 08/23/17 at 02:00 Insulin Aspart (Novolog Insulin Pen) NOVOLOG *MILD* ALGORITHM Q4 SC Last administered on 08/24/17 09:21; Admin Dose 1 UNIT; Start 08/22/17 at 17:00 Miscellaneous Information 1 ea NOTE XX ; Start 08/22/17 at 13:30 Glucose (Glutose) 15 gm Q15M PRN PO DECREASED GLUCOSE; Start 08/22/17 at 13:30 Glucose (Glutose) 22.5 gm Q15M PRN PO DECREASED GLUCOSE; Start 08/22/17 at 13: 30 Dextrose (D50w Syringe) 25 ml Q15M PRN IV DECREASED GLUCOSE; Start 08/22/17 at 13:30 Dextrose (D50w Syringe) 50 ml Q15M PRN IV DECREASED GLUCOSE; Start 08/22/17 at 13:30 Glucagon (Glucagen) 1 mg Q15M PRN IM DECREASED GLUCOSE; Start 08/22/17 at 13:30 Glucose (Glutose) 15 gm Q15M PRN BUCCAL DECREASED GLUCOSE; Start 08/22/17 at 13 :30 Sodium Hypochlorite (Dakin'S (Dilute 1/40%)) 1 applic BID IRR Last administered on 08/24/17t 09:18; Admin Dose 1 APPLIC; Start 08/23/17 at 09:00 Miscellaneous Information (*Rx Drug Level Order Reminder*) VANCOMYCIN RANDOM LEVEL... ONCE ONCE XX ; Start 08/25/17 at 05:00; Stop 08/25/17 at 05:01 Metoprolol Tartrate (Lopressor) 50 mg BID GTB ; Start 08/24/17 at 21:00 ODETTE MCKEON Aug 24, 2017 12:25
[2017-08-24] MEDS ORDERED: METOPROLOL 25 MG TAB GTB SCH (21:00)
[2017-08-24] MEDS: METOPROLOL 50 MG TAB GTB SCH (21:38)
[2017-08-25] VITALS (45 sets, daily range): BP systolic 104–168; BP diastolic 57–104; PULSE 91–124; RESP 19–32
[2017-08-25] MEDS: ACCU-CHEK XX SCH (02:10)
[2017-08-25] MEDS: INSULIN ASPART [NOVOLOG] 3 ML PEN SC SCH ×6 (02:25→20:43)
[2017-08-25] MEDS: PIPER-TAZO 2.25 GM (PMX) 50 ML IVPB SCH ×3 (05:45→22:13)
--- NOTE | 2017-08-25 09:14 | RADRPT ---
Vent Rate: 90 bpm RR Interval: 0 msec VT Interval: 168 msec QRS Duration: 90 msec QT Interval: 354 msec QTC Interval: 433 msec P-R-T [place]: 46 - 47 - 0 degrees Normal sinus rhythm Low voltage QRS Cannot rule out Anterior infarct , age undetermined Abnormal ECG Electronically Signed By: Reji Rene [id number]
--- NOTE | 2017-08-25 09:14 | RADRPT ---
Vent Rate: 90 bpm RR Interval: 0 msec ID Interval: 168 msec QRS Duration: 90 msec QT Interval: 354 msec QTC Interval: 433 msec P-R-T [place]: 46 - 47 - 0 degrees Normal sinus rhythm Low voltage QRS Cannot rule out Anterior infarct , age undetermined Abnormal ECG Electronically Signed By: Reji Rene [id number]
--- NOTE | 2017-08-25 09:14 | RADRPT ---
Vent Rate: 90 bpm RR Interval: 0 msec NM Interval: 168 msec QRS Duration: 90 msec QT Interval: 354 msec QTC Interval: 433 msec P-R-T [place]: 46 - 47 - 0 degrees Normal sinus rhythm Low voltage QRS Cannot rule out Anterior infarct , age undetermined Abnormal ECG Electronically Signed By: Reji Rene [id number]
--- NOTE | 2017-08-25 09:44 | CONS ---
Date/Time of Note Date/Time of Note DATE: 08/25/17 TIME: 09:41 Consult Date/Type/Reason Admit Date/Time Aug 20, 2017 at 17:03 Initial Consult Date 08/20/17 Type of Consultation: Pulmonary/critical care Ordering Provider: HUSSEIN ROSE Subjective Increased FiO2 overnight. Increased bloody secretions via tracheostomy. Neurologically unchanged. Currently not requiring vasopressor support. Objective Vital Signs Date Time Temp Pulse Resp B/P Pulse Ox O2 Delivery O2 Flow Rate FiO2 08/25/17 08:00 100 08/25/17 06:00 22 142/62 91 08/25/17 05:14 80 08/24/17 21:00 97.4 08/24/17 18:00 Mechanical Ventilator 08/21/17 23:28 8.0 Intake and Output 08/24/17 08/24/17 08/25/17 15:00 23:00 07:00 Intake Total 580 ml 170 ml 680 ml Output Total 10 ml 5 ml 0 ml Balance 570 ml 165 ml 680 ml Exam PHYSICAL EXAMINATION GENERAL: Elderly gentleman, on mechanical ventilation via tracheostomy VITAL SIGNS: see below. HEENT: Pupils equal, round, and reactive to light. Tracheostomy site clean and intact. CARDIAC: S1, S2, 2/6 systolic ejection murmur CHEST: Diminished air entry bilaterally. ABDOMEN: Mildly distended. Bowel sounds present no guarding or rebound EXTREMITIES: No cyanosis, clubbing edema +1 NEUROLOGIC: Generalized weakness Results/Medications Result Diagram: 08/25/17 0445 08/25/17 0445 Results 24 hrs Laboratory Tests Test 08/24/17 13:38 08/24/17 18:39 08/24/17 21:42 08/25/17 01:58 Bedside Glucose 171 176 185 189 Test 08/25/17 04:32 08/25/17 04:45 08/25/17 08:31 Bedside Glucose 202 White Blood Count 6.8 Red Blood Count 2.59 L Hemoglobin 7.4 L Hematocrit 23.4 L Mean Corpuscular Volume 90.3 Mean Corpuscular Hemoglobin 28.6 L Mean Corpuscular Hemoglobin Concent 31.6 L Red Cell Distribution Width 16.7 H Platelet Count 62 L Mean Platelet Volume 11.8 H Neutrophils % 73.7 Lymphocytes % 18.6 Monocytes % 3.7 Eosinophils % 3.5 Basophils % 0.1 Nucleated Red Blood Cells % 0.0 Neutrophils # 5.0 Lymphocytes # 1.3 Monocytes # 0.3 Eosinophils # 0.2 Basophils # 0.0 Nucleated Red Blood Cells # 0.0 Sodium Level 137 Potassium Level 3.6 Chloride Level 102 Carbon Dioxide Level 24 Anion Gap 15 Blood Urea Nitrogen 103 H Creatinine 5.00 H Glucose Level 202 Calcium Level 7.8 L Random Vancomycin Level 17.1 Blood Gas Specimen Source Blood arterial Arterial Blood Date Drawn 08/25/2017 8:40:01 AM Arterial Blood pH (Temp corrected) 7.376 Arterial Blood pCO2 (Temp correct) 46.7 H Arterial Blood pO2 (Temp corrected) 63.6 L Arterial Blood HCO3 26.8 H Arterial Blood Base Excess 1.2 Arterial Blood Oxygen Saturation 91.0 L Harsha Test ACCEPTAB Arterial Blood Gas Puncture Site Right Radial Arterial Blood Carboxyhemoglobin 0.5 Arterial Blood Methemoglobin 0.7 Blood Gas A-a O2 Differential 602.7 H Oxyhemoglobin Percent 89.9 L Total Hemoglobin 9.6 L Blood Gas Temperature 37.0 Blood Gas Modality VENT - AC FiO2 100.0 Blood Gas Tidal Volume 500.0 Blood Gas Low PEEP Setting 8.0 Blood Gas Notified Whom JLD Blood Gas Notified Time 08/25/2017 9:12:53 AM Medications Current Medications Piperacillin Sod/ Tazobactam Sod (Zosyn 2.25gm/ 50ml (Pmx)) 50 ml @ 100 mls/hr Q8 IVPB Last administered on 08/25/17 05:45; Admin Dose 100 MLS/HR; Start 08/22/17 at 08:30 Diagnostic Test (Pha) (Accu-Chek) 1 ea 02 XX Last administered on 08/25/17 02: 10; Admin Dose 1 EA; Start 08/23/17 at 02:00 Insulin Aspart (Novolog Insulin Pen) NOVOLOG *MILD* ALGORITHM Q4 SC Last administered on 08/25/17 05:03; Admin Dose 1 UNIT; Start 08/22/17 at 17:00 Miscellaneous Information 1 ea NOTE XX ; Start 08/22/17 at 13:30 Glucose (Glutose) 15 gm Q15M PRN PO DECREASED GLUCOSE; Start 08/22/17 at 13:30 Glucose (Glutose) 22.5 gm Q15M PRN PO DECREASED GLUCOSE; Start 10/2/17 at 13: 30 Dextrose (D50w Syringe) 25 ml Q15M PRN IV DECREASED GLUCOSE; Start 08/22/17 at 13:30 Dextrose (D50w Syringe) 50 ml Q15M PRN IV DECREASED GLUCOSE; Start 08/22/17 at 13:30 Glucagon (Glucagen) 1 mg Q15M PRN IM DECREASED GLUCOSE; Start 08/22/17 at 13:30 Glucose (Glutose) 15 gm Q15M PRN BUCCAL DECREASED GLUCOSE; Start 08/22/17 at 13 :30 Sodium Hypochlorite (Dakin'S (Dilute 1/40%)) 1 applic BID IRR Last administered on 08/24/17 21:44; Admin Dose 1 APPLIC; Start 08/23/17 at 09:00 Metoprolol Tartrate 50 mg 50 mg BID GTB Last administered on 08/24/17 21:38; Admin Dose 50 MG; Start 08/24/17 at 21:00 Vancomycin HCl (Vancocin) 250 ml @ 125 mls/hr ONCE ONCE IVPB ; Start 08/25/17 at 17:00; Stop 08/25/17 at 18:59 Assessment/Plan Chief Complaint/Hosp Course Assessment 1. Hypoxemic respiratory failure, acute on chronic 2. Possible underlying pneumonia and/or diffuse alveolar hemorrhage differential does include worsening pulmonary edema 3. End-stage renal failure on hemodialysis 4. Anemia and thrombocytopenia 5. Dysphagia with G-tube 6. history of encephalopathy Plan 1. Continue mechanical ventilation decrease FiO2 as tolerated 2. Continue hemodialysis with volume removal as tolerated 3. Continue ID recommendations 4. Consider platelet transfusion given ongoing bleeding, consider DDAVP 5. Continue tube feeding as tolerated 6. Need family conference to establish goals of care given extremely poor prognosis. Critical care time 40 minutes Problems: CHARLEE PORTER MD, [facility] Aug 25, 2017 09:44
--- NOTE | 2017-08-25 10:38 | CONS ---
Date/Time of Note Date/Time of Note DATE: 08/25/17 TIME: 10:35 Assessment/Plan Assessment/Plan Chief Complaint/Hosp Course IMPRESSION: 1. Positive troponin status. Significant in the setting of renal failure-No sig uptrend 2. Abnormal electrocardiogram, nonspecific ST-T abnormalities. 3. Hypertension-well controlled 4. Respiratory failure, chronic. 5. Renal failure, acute on chronic. 6. Dysphagia, status post G-tube. 7. Anemia-ongoing 8. Thrombocytopenia-ongoing 9. Encephalopathy. 10. History of CVA. 11. Diabetes mellitus. 12. Hypokalemia 14. Cardiomyopathy-depressed EF 40% Recc: -Tele -Continue BB as tolerated -trend cardiac enzymes -follow volume status with HD for volume removal ongoing today -No ASA given severe anemia and consider transfusion -Continue abx's and f/u cx data Problems: Consultation Date/Type/Reason Admit Date/Time Aug 20, 2017 at 17:03 Initial Consult Date 08/20/17 Type of Consultation: cardiology Reason for Consultation positive troponin Referring Provider: HUSSEIN ROSE Exam/Review of Systems Vital Signs Vitals Vital Signs Date Time Temp Pulse Resp B/P Pulse Ox O2 Delivery O2 Flow Rate FiO2 08/25/17 08:00 100 08/25/17 06:00 22 142/62 91 08/25/17 05:14 80 08/24/17 21:00 97.4 08/24/17 18:00 Mechanical Ventilator 08/21/17 23:28 8.0 Intake and Output 08/24/17 08/24/17 08/25/17 15:00 23:00 07:00 Intake Total 580 ml 170 ml 680 ml Output Total 10 ml 5 ml 0 ml Balance 570 ml 165 ml 680 ml Exam Review of Systems: CONSTITUTIONAL: No fevers, chills. PULMONARY: No sob CARDIOVASCULAR: No chest pain/palpitations GASTROINTESTINAL: No nausea/vomiting. GENITOURINARY: No hematuria/dysuria. MUSCULOSKELETAL: No myagias/arthalgias. PSYCHIATRIC: The patient denies depression. NEUROLOGIC: No weakness Constitutional: alert Psych: no complaints Head: normocephalic ENMT: mucosa pink and moist Neck: jvd (9 cm water), other (trached), supple Respiratory: diminished breath sounds (at bases/B) Cardiovascular: regular rate and rhythm Gastrointestinal: non-tender, soft Musculoskeletal: muscle tone (normal) Extremities: edema (none) Neurological: other (encephalopathic) Results Result Diagram: 08/25/17 0445 08/25/17 0445 Results 24 hrs Laboratory Tests Test 08/24/17 13:38 08/24/17 18:39 08/24/17 21:42 08/25/17 01:58 Bedside Glucose 171 176 185 189 Test 08/25/17 04:32 08/25/17 04:45 08/25/17 08:31 08/25/17 10:11 Bedside Glucose 202 172 White Blood Count 6.8 Red Blood Count 2.59 L Hemoglobin 7.4 L Hematocrit 23.4 L Mean Corpuscular Volume 90.3 Mean Corpuscular Hemoglobin 28.6 L Mean Corpuscular Hemoglobin Concent 31.6 L Red Cell Distribution Width 16.7 H Platelet Count 62 L Mean Platelet Volume 11.8 H Neutrophils % 73.7 Lymphocytes % 18.6 Monocytes % 3.7 Eosinophils % 3.5 Basophils % 0.1 Nucleated Red Blood Cells % 0.0 Neutrophils # 5.0 Lymphocytes # 1.3 Monocytes # 0.3 Eosinophils # 0.2 Basophils # 0.0 Nucleated Red Blood Cells # 0.0 Sodium Level 137 Potassium Level 3.6 Chloride Level 102 Carbon Dioxide Level 24 Anion Gap 15 Blood Urea Nitrogen 103 H Creatinine 5.00 H Glucose Level 202 Calcium Level 7.8 L Random Vancomycin Level 17.1 Blood Gas Specimen Source Blood arterial Arterial Blood Date Drawn 08/25/2017 8:40:01 AM Arterial Blood pH (Temp corrected) 7.376 Arterial Blood pCO2 (Temp correct) 46.7 H Arterial Blood pO2 (Temp corrected) 63.6 L Arterial Blood HCO3 26.8 H Arterial Blood Base Excess 1.2 Arterial Blood Oxygen Saturation 91.0 L Harsha Test ACCEPTAB Arterial Blood Gas Puncture Site Right Radial Arterial Blood Carboxyhemoglobin 0.5 Arterial Blood Methemoglobin 0.7 Blood Gas A-a O2 Differential 602.7 H Oxyhemoglobin Percent 89.9 L Total Hemoglobin 9.6 L Blood Gas Temperature 37.0 Blood Gas Modality VENT - AC FiO2 100.0 Blood Gas Tidal Volume 500.0 Blood Gas Low PEEP Setting 8.0 Blood Gas Notified Whom JLD Blood Gas Notified Time 08/25/2017 9:12:53 AM Medications Medications Current Medications Piperacillin Sod/ Tazobactam Sod (Zosyn 2.25gm/ 50ml (Pmx)) 50 ml @ 100 mls/hr Q8 IVPB Last administered on 08/25/17 05:45; Admin Dose 100 MLS/HR; Start 08/22/17 at 08:30 Diagnostic Test (Pha) (Accu-Chek) 1 ea 02 XX Last administered on 08/25/17 02: 10; Admin Dose 1 EA; Start 08/23/17 at 02:00 Insulin Aspart (Novolog Insulin Pen) NOVOLOG *MILD* ALGORITHM Q4 SC Last administered on 08/25/17 10:18; Admin Dose 1 UNIT; Start 08/22/17 at 17:00 Miscellaneous Information 1 ea NOTE XX ; Start 08/22/17 at 13:30 Glucose (Glutose) 15 gm Q15M PRN PO DECREASED GLUCOSE; Start 08/22/17 at 13:30 Glucose (Glutose) 22.5 gm Q15M PRN PO DECREASED GLUCOSE; Start 08/22/17 at 13: 30 Dextrose (D50w Syringe) 25 ml Q15M PRN IV DECREASED GLUCOSE; Start 08/22/17 at 13:30 Dextrose (D50w Syringe) 50 ml Q15M PRN IV DECREASED GLUCOSE; Start 08/22/17 at 13:30 Glucagon (Glucagen) 1 mg Q15M PRN IM DECREASED GLUCOSE; Start 08/22/17 at 13:30 Glucose (Glutose) 15 gm Q15M PRN BUCCAL DECREASED GLUCOSE; Start 08/22/17 at 13 :30 Sodium Hypochlorite (Dakin'S (Dilute 1/40%)) 1 applic BID IRR Last administered on 08/24/17 21:44; Admin Dose 1 APPLIC; Start 08/23/17 at 09:00 Metoprolol Tartrate 50 mg 50 mg BID GTB Last administered on 08/24/17 21:38; Admin Dose 50 MG; Start 08/24/17 at 21:00 Vancomycin HCl (Vancocin) 250 ml @ 125 mls/hr ONCE ONCE IVPB ; Start 08/25/17 at 17:00; Stop 08/25/17 at 18:59 BRENTON NORTON Aug 25, 2017 10:38
[2017-08-25] MEDS: METOPROLOL 50 MG TAB GTB SCH ×2 (11:15→20:45)
[2017-08-25] MEDS ORDERED: ACETAMINOPHEN 500 MG TAB PO PRN (12:00)
[2017-08-25] MEDS ORDERED: PHYTONADIONE 10 MG/ML INJ SC ONE (12:00)
[2017-08-25] MEDS ORDERED: EPOETIN 10000 UNITS/1 ML INJ (ESRD) SC ONE (13:00)
[2017-08-25] MEDS: SODIUM HYPOCHLORITE 1/40% 1L IRRIG IRR SCH ×2 (15:29→20:47)
--- NOTE | 2017-08-25 16:10 | PN ---
DATE: 08/25/2017 PROGRESS NOTE The patient's labs and medical records reviewed. I spoke with patient's son, Jovi regarding the patient's declining condition with multiorgan failure and poor prognosis for any meaningful recovery . Code status and goals of care were discussed in detail. I explained to him about code status als o and intensity of care including blood transfusion. He requested that patient remains full code an d he wanted to proceed with hemodialysis if needed and I did explain to him that the patient's progn osis for meaningful recovery is poor and his quality of life has declined in the past several months . The patient's son requested to continue current treatment plan despite a poor prognosis and no im pact on the patient's quality of life. Dictated By: MISSAEL EARL/JAMA Conf#: [id number] DID#: [id number]
--- NOTE | 2017-08-25 16:51 | CONS ---
Date/Time of Note Date/Time of Note DATE: 08/25/17 TIME: 16:49 Assessment/Plan Assessment/Plan Additional Assessment/Plan 1. Sepsis due to PNA 2. Acute on chronic renal failure - with severe metabolic acidosis and acute uremic encephalopathy- pt is anuric, started on HD during this admission 3. AMS due to acute uremic encephalopathy + acute metabolic encephalopathy 3. H/o recent admission to [facility] for renal failure 4. H/o chronic resp failure s/p tracheostomy 5. HTN 6. H/o CVA with residual weakness 7.. IDDM Plan: started on HD during this admission,s/p HD today 3 L removed, pt is still on high FiO2 Hepatitis panel, HIV negative will conitnue to follow up will wait pt to be more stable and platelets to stabilize before planning for senior care HD and permacath,d/w son on phone IV abx as per ID, pt will be [facility] HD patient., Consultation Date/Type/Reason Admit Date/Time Aug 20, 2017 at 17:03 Initial Consult Date 08/20/17 Type of Consultation: NEPHROLOGY Referring Provider: HUSSEIN ROSE 24 HR Interval Summary Free Text/Dictation S/p HD 3 L removed, stable, still on high Fio2 Exam/Review of Systems Vital Signs Vitals Vital Signs Date Time Temp Pulse Resp B/P Pulse Ox O2 Delivery O2 Flow Rate FiO2 08/25/17 12:00 94 08/25/17 12:00 25 135/57 98 Mechanical Ventilator 08/25/17 11:14 100 08/25/17 08:00 98.0 08/21/17 23:28 8.0 Intake and Output 08/24/17 08/24/17 08/25/17 15:00 23:00 07:00 Intake Total 580 ml 170 ml 720 ml Output Total 10 ml 5 ml 0 ml Balance 570 ml 165 ml 720 ml Exam Constitutional: non-verbal Head: normocephalic ENMT: other (+ tracheostomy on ventilator ) Neck: non-tender, supple Respiratory: congested cough, crackles/rales, diminished breath sounds Cardiovascular: S3, regular rate and rhythm Gastrointestinal: non-tender, soft Musculoskeletal: other (2+ pittign edema ), swelling Neurological: other (non verbal ,lethargic, pt is s/p tracheostomy on ventilator ) Results Result Diagram: 08/25/17 1154 08/25/17 0445 Results 24 hrs Laboratory Tests Test 08/24/17 18:39 08/24/17 21:42 08/25/17 01:58 08/25/17 04:32 Bedside Glucose 176 185 189 202 Test 08/25/17 04:45 08/25/17 08:31 08/25/17 10:11 08/25/17 11:54 White Blood Count 6.8 Red Blood Count 2.59 L Hemoglobin 7.4 L Hematocrit 23.4 L Mean Corpuscular Volume 90.3 Mean Corpuscular Hemoglobin 28.6 L Mean Corpuscular Hemoglobin Concent 31.6 L Red Cell Distribution Width 16.7 H Platelet Count 62 L 53 L Mean Platelet Volume 11.8 H Neutrophils % 73.7 Lymphocytes % 18.6 Monocytes % 3.7 Eosinophils % 3.5 Basophils % 0.1 Nucleated Red Blood Cells % 0.0 Neutrophils # 5.0 Lymphocytes # 1.3 Monocytes # 0.3 Eosinophils # 0.2 Basophils # 0.0 Nucleated Red Blood Cells # 0.0 Sodium Level 137 Potassium Level 3.6 Chloride Level 102 Carbon Dioxide Level 24 Anion Gap 15 Blood Urea Nitrogen 103 H Creatinine 5.00 H Glucose Level 202 Calcium Level 7.8 L Random Vancomycin Level 17.1 Blood Gas Specimen Source Blood arterial Arterial Blood Date Drawn 08/25/2017 8:40:01 AM Arterial Blood pH (Temp corrected) 7.376 Arterial Blood pCO2 (Temp correct) 46.7 H Arterial Blood pO2 (Temp corrected) 63.6 L Arterial Blood HCO3 26.8 H Arterial Blood Base Excess 1.2 Arterial Blood Oxygen Saturation 91.0 L Harsha Test ACCEPTAB Arterial Blood Gas Puncture Site Right Radial Arterial Blood Carboxyhemoglobin 0.5 Arterial Blood Methemoglobin 0.7 Blood Gas A-a O2 Differential 602.7 H Oxyhemoglobin Percent 89.9 L Total Hemoglobin 9.6 L Blood Gas Temperature 37.0 Blood Gas Modality VENT - AC FiO2 100.0 Blood Gas Tidal Volume 500.0 Blood Gas Low PEEP Setting 8.0 Blood Gas Notified Whom JLD Blood Gas Notified Time 08/25/2017 9:12:53 AM Bedside Glucose 172 Prothrombin Time 17.2 H Prothrombin Time Ratio 1.3 INR International Normalized Ratio 1.40 Activated Partial Thromboplast Time 44.0 H Thrombin Time 15.7 Fibrinogen 647.0 H Plasma Fibrin Degradation Products <10 D-Dimer 1764.37 H D-Dimer Comment Test 08/25/17 15:48 Bedside Glucose 154 Medications Medications Current Medications Piperacillin Sod/ Tazobactam Sod (Zosyn 2.25gm/ 50ml (Pmx)) 50 ml @ 100 mls/hr Q8 IVPB Last administered on 08/25/17 15:29; Admin Dose 100 MLS/HR; Start 08/22/17 at 08:30 Diagnostic Test (Pha) (Accu-Chek) 1 ea 02 XX Last administered on 08/25/17 02: 10; Admin Dose 1 EA; Start 08/23/17 at 02:00 Insulin Aspart (Novolog Insulin Pen) NOVOLOG *MILD* ALGORITHM Q4 SC Last administered on 08/25/17 10:18; Admin Dose 1 UNIT; Start 08/22/17 at 17:00 Miscellaneous Information 1 ea NOTE XX ; Start 08/22/17 at 13:30 Glucose (Glutose) 15 gm Q15M PRN PO DECREASED GLUCOSE; Start 08/22/17 at 13:30 Glucose (Glutose) 22.5 gm Q15M PRN PO DECREASED GLUCOSE; Start 08/22/17 at 13: 30 Dextrose (D50w Syringe) 25 ml Q15M PRN IV DECREASED GLUCOSE; Start 08/22/17 at 13:30 Dextrose (D50w Syringe) 50 ml Q15M PRN IV DECREASED GLUCOSE; Start 08/22/17 at 13:30 Glucagon (Glucagen) 1 mg Q15M PRN IM DECREASED GLUCOSE; Start 08/22/17 at 13:30 Glucose (Glutose) 15 gm Q15M PRN BUCCAL DECREASED GLUCOSE; Start 08/22/17 at 13 :30 Sodium Hypochlorite (Dakin'S (Dilute 1/40%)) 1 applic BID IRR Last administered on 08/25/17 15:29; Admin Dose 1 APPLIC; Start 08/23/17 at 09:00 Metoprolol Tartrate 50 mg 50 mg BID GTB Last administered on 08/25/17 11:15; Admin Dose 50 MG; Start 08/24/17 at 21:00 Vancomycin HCl (Vancocin) 250 ml @ 125 mls/hr ONCE ONCE IVPB ; Start 08/25/17 at 17:00; Stop 10/5/17 at 18:59 Acetaminophen (Tylenol Tab) 500 mg Q4H PRN PO PAIN AND OR ELEVATED TEMP; Start 08/25/17 at 12:00 Morphine Sulfate (morphine) 2 mg Q4H PRN IV PAIN LEVEL 4-6; Start 08/25/17 at 12:00 Pantoprazole (Protonix Iv) 40 mg DAILY@06 IV ; Start 08/26/17 at 06:00 LUCILLE CABALLERO MD Aug 25, 2017 16:51
[2017-08-25] MEDS ORDERED: VANCOMYCIN 1 GM in NS 250 ML IVPB ONE (17:00)
[2017-08-26] VITALS (36 sets, daily range): BP systolic 119–162; BP diastolic 56–77; PULSE 90–113; RESP 20–28
[2017-08-26] MEDS: INSULIN ASPART [NOVOLOG] 3 ML PEN SC SCH ×6 (01:00→20:48)
[2017-08-26] MEDS: ACCU-CHEK XX SCH (01:13)
[2017-08-26] MEDS: PIPER-TAZO 2.25 GM (PMX) 50 ML IVPB SCH ×3 (05:33→21:53)
[2017-08-26] MEDS ORDERED: PANTOPRAZOLE 40 MG INJ IV SCH (06:00)
[2017-08-26] MEDS: METOPROLOL 50 MG TAB GTB SCH ×2 (08:24→20:47)
[2017-08-26] MEDS: SODIUM HYPOCHLORITE 1/40% 1L IRRIG IRR SCH ×2 (08:24→20:48)
--- NOTE | 2017-08-26 09:25 | RADRPT ---
PROCEDURE: XR Chest. CLINICAL INDICATION: Shortness of breath. TECHNIQUE: Single frontal view. COMPARISON: 08/24/2017. FINDINGS: The tracheostomy tube and left arm PICC line remain in satisfactory position. There is severe bilate ral pulmonary air space disease consistent with pulmonary edema, unchanged. The heart size is normal. There is calcification in the aorta consistent with atherosclerosis. Moderate right pleural effusion and small left pleural effusion are unchanged. There is no pneumothorax. IMPRESSION: 1. No change from 08/24/2017. RPTAT: QQ .Javi Bruno MD, MD Date Time Electronically viewed and signed by .Javi Bruno MD, MD on 08/26/2017 09:25 .R/
--- NOTE | 2017-08-26 11:18 | CONS ---
Date/Time of Note Date/Time of Note DATE: 08/26/17 TIME: 11:16 Consult Date/Type/Reason Admit Date/Time Aug 20, 2017 at 17:03 Initial Consult Date 08/20/17 Type of Consultation: Pulmonary Ordering Provider: HUSSEIN ROSE Subjective Patient remains somnolent on mechanical ventilation. Monitor secretions. Neurologically unchanged. Objective Vital Signs Date Time Temp Pulse Resp B/P Pulse Ox O2 Delivery O2 Flow Rate FiO2 08/26/17 09:30 50 08/26/17 09:25 97 20 96 08/26/17 08:00 98.5 Mechanical Ventilator Nasal Cannula Intake and Output 08/25/17 08/25/17 08/26/17 15:00 23:00 07:00 Intake Total 380 ml 340 ml 220 ml Output Total 3315 ml 0 ml 25 ml Balance -2935 ml 340 ml 195 ml Exam PHYSICAL EXAMINATION GENERAL: Elderly gentleman, on mechanical ventilation via tracheostomy VITAL SIGNS: see below. HEENT: Pupils equal, round, and reactive to light. Tracheostomy site clean and intact. CARDIAC: S1, S2, 2/6 systolic ejection murmur CHEST: Diminished air entry bilaterally. ABDOMEN: Mildly distended. Bowel sounds present no guarding or rebound EXTREMITIES: No cyanosis, clubbing edema +1 NEUROLOGIC: Generalized weakness Results/Medications Result Diagram: 08/26/17 0400 08/26/17 0400 Results 24 hrs Chest x-ray Diffuse bilateral infiltrates consistent with either pulmonary edema or ARDS. Differential does include diffuse alveolar hemorrhage. Laboratory Tests Test 08/25/17 11:54 08/25/17 15:48 08/25/17 17:12 08/25/17 20:41 Platelet Count 53 L Prothrombin Time 17.2 H Prothrombin Time Ratio 1.3 INR International Normalized Ratio 1.40 Activated Partial Thromboplast Time 44.0 H Thrombin Time 15.7 Fibrinogen 647.0 H Plasma Fibrin Degradation Products <10 D-Dimer 1764.37 H D-Dimer Comment Bedside Glucose 154 160 141 Test 08/26/17 01:10 08/26/17 04:00 08/26/17 04:55 08/26/17 05:24 Bedside Glucose 129 124 White Blood Count 6.0 Red Blood Count 2.87 L Hemoglobin 8.1 L Hematocrit 25.3 L Mean Corpuscular Volume 88.2 Mean Corpuscular Hemoglobin 28.2 L Mean Corpuscular Hemoglobin Concent 32.0 Red Cell Distribution Width 16.2 H Platelet Count 46 L Mean Platelet Volume 11.5 H Neutrophils % 70.3 Lymphocytes % 19.6 Monocytes % 4.0 Eosinophils % 5.4 Basophils % 0.2 Nucleated Red Blood Cells % 0.0 Neutrophils # 4.2 Lymphocytes # 1.2 Monocytes # 0.2 L Eosinophils # 0.3 Basophils # 0.0 Nucleated Red Blood Cells # 0.0 Prothrombin Time 17.3 H Prothrombin Time Ratio 1.4 INR International Normalized Ratio 1.41 Activated Partial Thromboplast Time 45.3 H Thrombin Time 16.8 Sodium Level 138 Potassium Level 3.4 L Chloride Level 103 Carbon Dioxide Level 26 Anion Gap 12 Blood Urea Nitrogen 83 H Creatinine 4.11 H Glucose Level 119 # Calcium Level 8.2 L Phosphorus Level 4.7 Magnesium Level 1.7 Lab Scanned Report BLOOD TRANSFUSION Test 08/26/17 07:00 08/26/17 08:27 Blood Gas Specimen Source Blood arterial Arterial Blood Date Drawn 08/26/2017 7:50:06 AM Arterial Blood pH (Temp corrected) 7.391 Arterial Blood pCO2 (Temp correct) 39.9 Arterial Blood pO2 (Temp corrected) 122.8 H Arterial Blood HCO3 23.7 Arterial Blood Base Excess -1.1 Arterial Blood Oxygen Saturation 98.1 Harsha Test ACCEPTAB Arterial Blood Gas Puncture Site Right Radial Arterial Blood Carboxyhemoglobin 0.1 Arterial Blood Methemoglobin 0.2 Blood Gas A-a O2 Differential 333.4 H Oxyhemoglobin Percent 97.8 Total Hemoglobin 11.0 L Blood Gas Temperature 37.0 Blood Gas Respiration Rate 24.0 Blood Gas Actual Respiration Rate 25 Blood Gas Modality VENT - AC FiO2 70.0 Blood Gas Tidal Volume 500.0 Blood Gas Low PEEP Setting 8.0 Blood Gas Notified Whom JLD Blood Gas Notified Time 08/26/2017 8:04:47 AM Bedside Glucose 161 Medications Current Medications Piperacillin Sod/ Tazobactam Sod (Zosyn 2.25gm/ 50ml (Pmx)) 50 ml @ 100 mls/hr Q8 IVPB Last administered on 08/26/17 05:33; Admin Dose 100 MLS/HR; Start 08/22/17 at 08:30 Diagnostic Test (Pha) (Accu-Chek) 1 ea 02 XX Last administered on 08/25/17 02: 10; Admin Dose 1 EA; Start 08/23/17 at 02:00 Insulin Aspart (Novolog Insulin Pen) NOVOLOG *MILD* ALGORITHM Q4 SC Last administered on 08/26/17 08:30; Admin Dose 1 UNIT; Start 08/22/17 at 17:00 Miscellaneous Information 1 ea NOTE XX ; Start 08/22/17 at 13:30 Glucose (Glutose) 15 gm Q15M PRN PO DECREASED GLUCOSE; Start 08/22/17 at 13:30 Glucose (Glutose) 22.5 gm Q15M PRN PO DECREASED GLUCOSE; Start 08/22/17 at 13: 30 Dextrose (D50w Syringe) 25 ml Q15M PRN IV DECREASED GLUCOSE; Start 08/22/17 at 13:30 Dextrose (D50w Syringe) 50 ml Q15M PRN IV DECREASED GLUCOSE; Start 08/22/17 at 13:30 Glucagon (Glucagen) 1 mg Q15M PRN IM DECREASED GLUCOSE; Start 08/22/17 at 13:30 Glucose (Glutose) 15 gm Q15M PRN BUCCAL DECREASED GLUCOSE; Start 08/22/17 at 13 :30 Sodium Hypochlorite (Dakin'S (Dilute 1/40%)) 1 applic BID IRR Last administered on 08/26/17 08:24; Admin Dose 1 APPLIC; Start 08/23/17 at 09:00 Metoprolol Tartrate (Lopressor) 50 mg BID GTB Last administered on 08/26/17 08 :24; Admin Dose 50 MG; Start 08/24/17 at 21:00 Acetaminophen (Tylenol Tab) 500 mg Q4H PRN PO PAIN AND OR ELEVATED TEMP; Start 08/25/17 at 12:00 Morphine Sulfate (morphine) 2 mg Q4H PRN IV PAIN LEVEL 4-6; Start 08/25/17 at 12:00 Pantoprazole (Protonix Iv) 40 mg DAILY@06 IV Last administered on 08/26/17 05: 33; Admin Dose 40 MG; Start 08/26/17 at 06:00 Assessment/Plan Chief Complaint/Hosp Course assessment 1. Hypoxemic respiratory failure, acute on chronic 2. Possible underlying pneumonia and/or diffuse alveolar hemorrhage differential does include worsening pulmonary edema 3. End-stage renal failure on hemodialysis 4. Anemia and thrombocytopenia 5. Dysphagia with G-tube 6. history of encephalopathy Plan 1. Continue mechanical ventilation decrease FiO2 as tolerated , Decrease PEEP as tolerated 2. Continue hemodialysis with volume removal as tolerated 3. Continue ID recommendations 4. Consider platelet transfusion given ongoing bleeding, consider DDAVP if continues to bleed 5. Continue tube feeding as tolerated 6. Need family conference to establish goals of care given extremely poor prognosis. Critical care time 40 minutes Overall prognosis very poor. Problems: CHARLEE PORTER MD, [facility] Aug 26, 2017 11:18
[2017-08-26] MEDS: morphine 2 MG INJ IV PRN (11:41)
--- NOTE | 2017-08-26 11:46 | CONS ---
Date/Time of Note Date/Time of Note DATE: 08/26/17 TIME: 11:43 Assessment/Plan Assessment/Plan Additional Assessment/Plan 1. Sepsis due to PNA 2. Acute on chronic renal failure - with severe metabolic acidosis and acute uremic encephalopathy- pt is anuric, started on HD during this admission 3. AMS due to acute uremic encephalopathy + acute metabolic encephalopathy 3. H/o recent admission to [place] for renal failure 4. H/o chronic resp failure s/p tracheostomy 5. HTN 6. H/o CVA with residual weakness 7.. 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., Consultation Date/Type/Reason Admit Date/Time Aug 20, 2017 at 17:03 Initial Consult Date 08/20/17 Type of Consultation: NEPHROLOGY Referring Provider: HUSSEIN ROSE 24 HR Interval Summary Free Text/Dictation stable on ventilator, BP stable, afebrile s/p HD yesterday K 3.4 Exam/Review of Systems Vital Signs Vitals Vital Signs Date Time Temp Pulse Resp B/P Pulse Ox O2 Delivery O2 Flow Rate FiO2 08/26/17 09:30 50 08/26/17 09:25 97 20 96 08/26/17 08:00 98.5 Mechanical Ventilator Nasal Cannula Intake and Output 08/25/17 08/25/17 08/26/17 14:59 22:59 06:59 Intake Total 420 ml 340 ml 220 ml Output Total 3310 ml 5 ml 25 ml Balance -2890 ml 335 ml 195 ml Exam Constitutional: non-verbal Head: normocephalic ENMT: other (+ tracheostomy on ventilator ) Neck: non-tender, supple Respiratory: congested cough, crackles/rales, diminished breath sounds Cardiovascular: S3, regular rate and rhythm Gastrointestinal: non-tender, soft Musculoskeletal: other (2+ pittign edema ), swelling Neurological: other (non verbal ,lethargic, pt is s/p tracheostomy on ventilator ) Results Result Diagram: 08/26/170 08/26/17399 Results 24 hrs Laboratory Tests Test 08/25/17 11:54 08/25/17 15:48 08/25/17 17:12 08/25/17 20:41 Platelet Count 53 L Prothrombin Time 17.2 H Prothrombin Time Ratio 1.3 INR International Normalized Ratio 1.40 Activated Partial Thromboplast Time 44.0 H Thrombin Time 15.7 Fibrinogen 647.0 H Plasma Fibrin Degradation Products <10 D-Dimer 1764.37 H D-Dimer Comment Bedside Glucose 154 160 141 Test 08/26/17 01:10 08/26/17 04:00 08/26/17 04:55 08/26/17 05:24 Bedside Glucose 129 124 White Blood Count 6.0 Red Blood Count 2.87 L Hemoglobin 8.1 L Hematocrit 25.3 L Mean Corpuscular Volume 88.2 Mean Corpuscular Hemoglobin 28.2 L Mean Corpuscular Hemoglobin Concent 32.0 Red Cell Distribution Width 16.2 H Platelet Count 46 L Mean Platelet Volume 11.5 H Neutrophils % 70.3 Lymphocytes % 19.6 Monocytes % 4.0 Eosinophils % 5.4 Basophils % 0.2 Nucleated Red Blood Cells % 0.0 Neutrophils # 4.2 Lymphocytes # 1.2 Monocytes # 0.2 L Eosinophils # 0.3 Basophils # 0.0 Nucleated Red Blood Cells # 0.0 Prothrombin Time 17.3 H Prothrombin Time Ratio 1.4 INR International Normalized Ratio 1.41 Activated Partial Thromboplast Time 45.3 H Thrombin Time 16.8 Sodium Level 138 Potassium Level 3.4 L Chloride Level 103 Carbon Dioxide Level 26 Anion Gap 12 Blood Urea Nitrogen 83 H Creatinine 4.11 H Glucose Level 119 # Calcium Level 8.2 L Phosphorus Level 4.7 Magnesium Level 1.7 Lab Scanned Report BLOOD TRANSFUSION Test 08/26/17 07:00 08/26/17 08:27 Blood Gas Specimen Source Blood arterial Arterial Blood Date Drawn 08/26/2017 7:50:06 AM Arterial Blood pH (Temp corrected) 7.391 Arterial Blood pCO2 (Temp correct) 39.9 Arterial Blood pO2 (Temp corrected) 122.8 H Arterial Blood HCO3 23.7 Arterial Blood Base Excess -1.1 Arterial Blood Oxygen Saturation 98.1 Harsha Test ACCEPTAB Arterial Blood Gas Puncture Site Right Radial Arterial Blood Carboxyhemoglobin 0.1 Arterial Blood Methemoglobin 0.2 Blood Gas A-a O2 Differential 333.4 H Oxyhemoglobin Percent 97.8 Total Hemoglobin 11.0 L Blood Gas Temperature 37.0 Blood Gas Respiration Rate 24.0 Blood Gas Actual Respiration Rate 25 Blood Gas Modality VENT - AC FiO2 70.0 Blood Gas Tidal Volume 500.0 Blood Gas Low PEEP Setting 8.0 Blood Gas Notified Whom JLD Blood Gas Notified Time 08/26/2017 8:04:47 AM Bedside Glucose 161 Medications Medications Current Medications Piperacillin Sod/ Tazobactam Sod (Zosyn 2.25gm/ 50ml (Pmx)) 50 ml @ 100 mls/hr Q8 IVPB Last administered on 08/26/17 05:33; Admin Dose 100 MLS/HR; Start 08/22/17 at 08:30 Diagnostic Test (Pha) (Accu-Chek) 1 ea 02 XX Last administered on 08/25/17 02: 10; Admin Dose 1 EA; Start 08/23/17 at 02:00 Insulin Aspart (Novolog Insulin Pen) NOVOLOG *MILD* ALGORITHM Q4 SC Last administered on 08/26/17 08:30; Admin Dose 1 UNIT; Start 08/22/17 at 17:00 Miscellaneous Information 1 ea NOTE XX ; Start 08/22/17 at 13:30 Glucose (Glutose) 15 gm Q15M PRN PO DECREASED GLUCOSE; Start 08/22/17 at 13:30 Glucose (Glutose) 22.5 gm Q15M PRN PO DECREASED GLUCOSE; Start 08/22/17 at 13: 30 Dextrose (D50w Syringe) 25 ml Q15M PRN IV DECREASED GLUCOSE; Start 08/22/17 at 13:30 Dextrose (D50w Syringe) 50 ml Q15M PRN IV DECREASED GLUCOSE; Start 08/22/17 at 13:30 Glucagon (Glucagen) 1 mg Q15M PRN IM DECREASED GLUCOSE; Start 08/22/17 at 13:30 Glucose (Glutose) 15 gm Q15M PRN BUCCAL DECREASED GLUCOSE; Start 08/22/17 at 13 :30 Sodium Hypochlorite (Dakin'S (Dilute 1/40%)) 1 applic BID IRR Last administered on 08/26/17 08:24; Admin Dose 1 APPLIC; Start 08/23/17 at 09:00 Metoprolol Tartrate (Lopressor) 50 mg BID GTB Last administered on 08/26/17 08 :24; Admin Dose 50 MG; Start 08/24/17 at 21:00 Acetaminophen (Tylenol Tab) 500 mg Q4H PRN PO PAIN AND OR ELEVATED TEMP; Start 08/25/17 at 12:00 Morphine Sulfate (morphine) 2 mg Q4H PRN IV PAIN LEVEL 4-6 Last administered on 08/26/17 11:41; Admin Dose 2 MG; Start 08/25/17 at 12:00 Pantoprazole (Protonix Iv) 40 mg DAILY@06 IV Last administered on 08/26/17 05: 33; Admin Dose 40 MG; Start 08/26/17 at 06:00 LUCILLE CABALLERO MD Aug 26, 2017 11:46
[2017-08-26] MEDS ORDERED: POTASSIUM CHLORIDE 20 MEQ in SOD CHLORIDE 0.9% 100 ML IVPB ONE (13:00)
--- NOTE | 2017-08-26 14:10 | CONS ---
Date/Time of Note Date/Time of Note DATE: 08/26/17 TIME: 14:03 Assessment/Plan Assessment/Plan Chief Complaint/Hosp Course IMPRESSION: 1. Positive troponin status. Significant in the setting of renal failure-No sig uptrend 2. Abnormal electrocardiogram, nonspecific ST-T abnormalities. 3. Hypertension-well controlled 4. Respiratory failure, chronic. 5. Renal failure, acute on chronic. 6. Dysphagia, status post G-tube. 7. Anemia-ongoing 8. Thrombocytopenia-ongoing 9. Encephalopathy. 10. History of CVA. 11. Diabetes mellitus. 12. Hypokalemia 14. Cardiomyopathy-depressed EF 40% Recc: -Tele -Continue BB as tolerated -trend cardiac enzymes -follow volume status with HD for volume removal ongoing today -No ASA given severe anemia and consider transfusion -Continue abx's and f/u cx data Problems: Consultation Date/Type/Reason Admit Date/Time Aug 20, 2017 at 17:03 Initial Consult Date 08/20/17 Type of Consultation: cardiology Reason for Consultation positive troponin Referring Provider: HUSSEIN ROSE Exam/Review of Systems Vital Signs Vitals Vital Signs Date Time Temp Pulse Resp B/P Pulse Ox O2 Delivery O2 Flow Rate FiO2 08/26/17 13:00 102 21 146/69 98 Mechanical Ventilator 08/26/17 12:35 60 08/26/17 12:00 98.4 Intake and Output 08/25/17 08/25/17 08/26/17 15:00 23:00 07:00 Intake Total 380 ml 340 ml 260 ml Output Total 3315 ml 0 ml 25 ml Balance -2935 ml 340 ml 235 ml Exam Review of Systems: CONSTITUTIONAL: No fevers, chills. PULMONARY: tracehd CARDIOVASCULAR: No chest pain/palpitations GASTROINTESTINAL: No nausea/vomiting. GENITOURINARY: No hematuria/dysuria. MUSCULOSKELETAL: No myagias/arthalgias. PSYCHIATRIC: The patient denies depression. NEUROLOGIC: No weakness Constitutional: alert Psych: no complaints Head: normocephalic ENMT: mucosa pink and moist Neck: jvd (9 cm water), supple Respiratory: diminished breath sounds Cardiovascular: regular rate and rhythm Gastrointestinal: non-tender, soft Musculoskeletal: muscle tone (normal) Extremities: other (contracted), pitting pedal edema (bilateral) Neurological: other (encephalopathic) Results Result Diagram: 08/26/17 0400 08/26/17 0400 Results 24 hrs Laboratory Tests Test 08/25/17 15:48 08/25/17 17:12 08/25/17 20:41 08/26/17 01:10 Bedside Glucose 154 160 141 129 Test 08/26/17 04:00 08/26/17 04:55 08/26/17 05:24 08/26/17 07:00 White Blood Count 6.0 Red Blood Count 2.87 L Hemoglobin 8.1 L Hematocrit 25.3 L Mean Corpuscular Volume 88.2 Mean Corpuscular Hemoglobin 28.2 L Mean Corpuscular Hemoglobin Concent 32.0 Red Cell Distribution Width 16.2 H Platelet Count 46 L Mean Platelet Volume 11.5 H Neutrophils % 70.3 Lymphocytes % 19.6 Monocytes % 4.0 Eosinophils % 5.4 Basophils % 0.2 Nucleated Red Blood Cells % 0.0 Neutrophils # 4.2 Lymphocytes # 1.2 Monocytes # 0.2 L Eosinophils # 0.3 Basophils # 0.0 Nucleated Red Blood Cells # 0.0 Prothrombin Time 17.3 H Prothrombin Time Ratio 1.4 INR International Normalized Ratio 1.41 Activated Partial Thromboplast Time 45.3 H Thrombin Time 16.8 Sodium Level 138 Potassium Level 3.4 L Chloride Level 103 Carbon Dioxide Level 26 Anion Gap 12 Blood Urea Nitrogen 83 H Creatinine 4.11 H Glucose Level 119 # Calcium Level 8.2 L Phosphorus Level 4.7 Magnesium Level 1.7 Bedside Glucose 124 Lab Scanned Report BLOOD TRANSFUSION Blood Gas Specimen Source Blood arterial Arterial Blood Date Drawn 08/26/2017 7:50:06 AM Arterial Blood pH (Temp corrected) 7.391 Arterial Blood pCO2 (Temp correct) 39.9 Arterial Blood pO2 (Temp corrected) 122.8 H Arterial Blood HCO3 23.7 Arterial Blood Base Excess -1.1 Arterial Blood Oxygen Saturation 98.1 Harsha Test ACCEPTAB Arterial Blood Gas Puncture Site Right Radial Arterial Blood Carboxyhemoglobin 0.1 Arterial Blood Methemoglobin 0.2 Blood Gas A-a O2 Differential 333.4 H Oxyhemoglobin Percent 97.8 Total Hemoglobin 11.0 L Blood Gas Temperature 37.0 Blood Gas Respiration Rate 24.0 Blood Gas Actual Respiration Rate 25 Blood Gas Modality VENT - AC FiO2 70.0 Blood Gas Tidal Volume 500.0 Blood Gas Low PEEP Setting 8.0 Blood Gas Notified Whom JLD Blood Gas Notified Time 08/26/2017 8:04:47 AM Test 08/26/17 08:27 08/26/17 12:53 Bedside Glucose 161 161 Medications Medications Current Medications Piperacillin Sod/ Tazobactam Sod (Zosyn 2.25gm/ 50ml (Pmx)) 50 ml @ 100 mls/hr Q8 IVPB Last administered on 08/26/17 05:33; Admin Dose 100 MLS/HR; Start 08/22/17 at 08:30 Diagnostic Test (Pha) (Accu-Chek) 1 ea 02 XX Last administered on 08/25/17 02: 10; Admin Dose 1 EA; Start 08/23/17 at 02:00 Insulin Aspart (Novolog Insulin Pen) NOVOLOG *MILD* ALGORITHM Q4 SC Last administered on 08/26/17 13:04; Admin Dose 1 UNIT; Start 08/22/17 at 17:00 Miscellaneous Information 1 ea NOTE XX ; Start 08/22/17 at 13:30 Glucose (Glutose) 15 gm Q15M PRN PO DECREASED GLUCOSE; Start 08/22/17 at 13:30 Glucose (Glutose) 22.5 gm Q15M PRN PO DECREASED GLUCOSE; Start 08/22/17 at 13: 30 Dextrose (D50w Syringe) 25 ml Q15M PRN IV DECREASED GLUCOSE; Start 08/22/17 at 13:30 Dextrose (D50w Syringe) 50 ml Q15M PRN IV DECREASED GLUCOSE; Start 08/22/17 at 13:30 Glucagon (Glucagen) 1 mg Q15M PRN IM DECREASED GLUCOSE; Start 08/22/17 at 13:30 Glucose (Glutose) 15 gm Q15M PRN BUCCAL DECREASED GLUCOSE; Start 08/22/17 at 13 :30 Sodium Hypochlorite (Dakin'S (Dilute 1/40%)) 1 applic BID IRR Last administered on 08/26/17 08:24; Admin Dose 1 APPLIC; Start 08/23/17 at 09:00 Metoprolol Tartrate (Lopressor) 50 mg BID GTB Last administered on 08/26/17 08 :24; Admin Dose 50 MG; Start 08/24/17 at 21:00 Acetaminophen (Tylenol Tab) 500 mg Q4H PRN PO PAIN AND OR ELEVATED TEMP; Start 08/25/17 at 12:00 Morphine Sulfate (morphine) 2 mg Q4H PRN IV PAIN LEVEL 4-6 Last administered on 08/26/17 11:41; Admin Dose 2 MG; Start 08/25/17 at 12:00 Pantoprazole 40 mg 40 mg DAILY@06 IV Last administered on 08/26/17 05:33; Admin Dose 40 MG; Start 08/26/17 at 06:00 Potassium Chloride/Sodium Chloride (KCl/NS) 110 ml @ 55 mls/hr ONCE ONCE IVPB Last administered on 08/26/17 12:57; Admin Dose 55 MLS/HR; Start 08/26/17 at 13:00; Stop 08/26/17 at 14:59 BRENTON NORTON Aug 26, 2017 14:09
--- NOTE | 2017-08-26 19:02 | PN ---
Date/Time of Note Date/Time of Note DATE: 08/26/17 TIME: 19:00 Assessment/Plan VTE Prophylaxis VTE Prophylaxis Intervention: SCD's Lines/Catheters IV Catheter Type (from Nrs): PICC Line Central line still needed: Yes Urinary Cath still in place: Yes Reason Cath still needed: urinary retention Assessment/Plan Chief Complaint/Hosp Course Patient continues on ventilatory support was 80% with 60% FiO2 and PEEP of 8, there is G-tube feeding well, BM 1, pending hemodialysis tomorrow. Assessment/Plan -Acute on chronic CKD. Continue hemodialysis. Dr. Nieto is following in nephrology consultation. -Ventilator dependent respiratory failure with tracheostomy. -Pulmonary edema versus multifocal pneumonia, continue broad-spectrum antibiotics -Positive troponin in the setting of renal disease, Dr. Zuniga is following in cardiology consultation -Acute metabolic encephalopathy -Anemia, s/p blood transfusion, f/up on stool for OB, continue to monitor hemoglobin and hematocrit -DM, NovoLog per sliding scale. -Dysphagia with PEG Further recommendations based on clinical course. Plan of care discussed with Dr. Chávez. Problems: Exam/Review of Systems Vital Signs Vitals Vital Signs Date Time Temp Pulse Resp B/P Pulse Ox O2 Delivery O2 Flow Rate FiO2 08/26/17 18:00 104 23 146/69 96 Mechanical Ventilator 08/26/17 16:46 60 08/26/17 16:00 98.8 Intake and Output 08/25/17 08/25/17 08/26/17 15:00 23:00 07:00 Intake Total 380 ml 340 ml 260 ml Output Total 3315 ml 0 ml 25 ml Balance -2935 ml 340 ml 235 ml Exam Constitutional: frail Neck: other (Tracheostomy), supple Respiratory: other (scattered Rhonchi) Cardiovascular: nl pulses Gastrointestinal: non-tender, other (G-tube), soft Extremities: normal pulses Results Result Diagram: 08/26/17 0400 08/26/17 0400 Results 24 hrs Laboratory Tests Test 08/25/17 20:41 08/26/17 01:10 08/26/17 04:00 08/26/17 04:55 Bedside Glucose 141 129 124 White Blood Count 6.0 Red Blood Count 2.87 L Hemoglobin 8.1 L Hematocrit 25.3 L Mean Corpuscular Volume 88.2 Mean Corpuscular Hemoglobin 28.2 L Mean Corpuscular Hemoglobin Concent 32.0 Red Cell Distribution Width 16.2 H Platelet Count 46 L Mean Platelet Volume 11.5 H Neutrophils % 70.3 Lymphocytes % 19.6 Monocytes % 4.0 Eosinophils % 5.4 Basophils % 0.2 Nucleated Red Blood Cells % 0.0 Neutrophils # 4.2 Lymphocytes # 1.2 Monocytes # 0.2 L Eosinophils # 0.3 Basophils # 0.0 Nucleated Red Blood Cells # 0.0 Prothrombin Time 17.3 H Prothrombin Time Ratio 1.4 INR International Normalized Ratio 1.41 Activated Partial Thromboplast Time 45.3 H Thrombin Time 16.8 Sodium Level 138 Potassium Level 3.4 L Chloride Level 103 Carbon Dioxide Level 26 Anion Gap 12 Blood Urea Nitrogen 83 H Creatinine 4.11 H Glucose Level 119 # Calcium Level 8.2 L Phosphorus Level 4.7 Magnesium Level 1.7 Test 08/26/17 05:24 08/26/17 07:00 08/26/17 08:27 08/26/17 12:53 Lab Scanned Report BLOOD TRANSFUSION Blood Gas Specimen Source Blood arterial Arterial Blood Date Drawn 08/26/2017 7:50:06 AM Arterial Blood pH (Temp corrected) 7.391 Arterial Blood pCO2 (Temp correct) 39.9 Arterial Blood pO2 (Temp corrected) 122.8 H Arterial Blood HCO3 23.7 Arterial Blood Base Excess -1.1 Arterial Blood Oxygen Saturation 98.1 Harsha Test ACCEPTAB Arterial Blood Gas Puncture Site Right Radial Arterial Blood Carboxyhemoglobin 0.1 Arterial Blood Methemoglobin 0.2 Blood Gas A-a O2 Differential 333.4 H Oxyhemoglobin Percent 97.8 Total Hemoglobin 11.0 L Blood Gas Temperature 37.0 Blood Gas Respiration Rate 24.0 Blood Gas Actual Respiration Rate 25 Blood Gas Modality VENT - AC FiO2 70.0 Blood Gas Tidal Volume 500.0 Blood Gas Low PEEP Setting 8.0 Blood Gas Notified Whom JLD Blood Gas Notified Time 08/26/2017 8:04:47 AM Bedside Glucose 161 161 Test 08/26/17 18:06 Bedside Glucose 173 Medications Medications Current Medications Piperacillin Sod/ Tazobactam Sod (Zosyn 2.25gm/ 50ml (Pmx)) 50 ml @ 100 mls/hr Q8 IVPB Last administered on 08/26/17t 14:03; Admin Dose 100 MLS/HR; Start 08/22/17 at 08:30 Diagnostic Test (Pha) (Accu-Chek) 1 ea 02 XX Last administered on 08/25/17 02: 10; Admin Dose 1 EA; Start 08/23/17 at 02:00 Insulin Aspart (Novolog Insulin Pen) NOVOLOG *MILD* ALGORITHM Q4 SC Last administered on 08/26/17 18:13; Admin Dose 1 UNIT; Start 08/22/17 at 17:00 Miscellaneous Information 1 ea NOTE XX ; Start 08/22/17 at 13:30 Glucose (Glutose) 15 gm Q15M PRN PO DECREASED GLUCOSE; Start 08/22/17 at 13:30 Glucose (Glutose) 22.5 gm Q15M PRN PO DECREASED GLUCOSE; Start 08/22/17 at 13: 30 Dextrose (D50w Syringe) 25 ml Q15M PRN IV DECREASED GLUCOSE; Start 08/22/17 at 13:30 Dextrose (D50w Syringe) 50 ml Q15M PRN IV DECREASED GLUCOSE; Start 08/22/17 at 13:30 Glucagon (Glucagen) 1 mg Q15M PRN IM DECREASED GLUCOSE; Start 08/22/17 at 13:30 Glucose (Glutose) 15 gm Q15M PRN BUCCAL DECREASED GLUCOSE; Start 08/22/17 at 13 :30 Sodium Hypochlorite (Dakin'S (Dilute 1/40%)) 1 applic BID IRR Last administered on 08/26/17 08:24; Admin Dose 1 APPLIC; Start 08/23/17 at 09:00 Metoprolol Tartrate (Lopressor) 50 mg BID GTB Last administered on 08/26/17 08 :24; Admin Dose 50 MG; Start 08/24/17 at 21:00 Acetaminophen (Tylenol Tab) 500 mg Q4H PRN PO PAIN AND OR ELEVATED TEMP; Start 08/25/17 at 12:00 Morphine Sulfate (morphine) 2 mg Q4H PRN IV PAIN LEVEL 4-6 Last administered on 08/26/17 11:41; Admin Dose 2 MG; Start 08/25/17 at 12:00 Famotidine (Pepcid Iv) 20 mg DAILY IV ; Start 08/27/17 at 09:00 ARLETH MCKNIGHT Aug 26, 2017 19:02
[2017-08-27] VITALS (39 sets, daily range): BP systolic 92–163; BP diastolic 50–88; PULSE 85–129; RESP 0–30
[2017-08-27] MEDS: INSULIN ASPART [NOVOLOG] 3 ML PEN SC SCH ×6 (01:00→20:41)
[2017-08-27] MEDS: ACCU-CHEK XX SCH (01:12)
[2017-08-27] MEDS: PIPER-TAZO 2.25 GM (PMX) 50 ML IVPB SCH ×3 (06:11→22:28)
[2017-08-27] MEDS: morphine 2 MG INJ IV PRN (06:12)
[2017-08-27] MEDS: SODIUM HYPOCHLORITE 1/40% 1L IRRIG IRR SCH (09:02)
[2017-08-27] MEDS: FAMOTIDINE 20 MG INJ IV SCH (09:02)
[2017-08-27] MEDS: METOPROLOL 50 MG TAB GTB SCH ×2 (09:02→20:35)
[2017-08-27] MEDS: HEPARIN 1000 UNITS/ML 10 ML INJ CATHETER SCH (10:54)
--- NOTE | 2017-08-27 12:20 | RADRPT ---
PROCEDURE: XR Chest. CLINICAL INDICATION: Shortness of breath. TECHNIQUE: Single frontal view. COMPARISON: 08/26/2017. FINDINGS: The tracheostomy tube and left arm PICC line remain in satisfactory position. There is severe bilate ral pulmonary air space disease consistent with pulmonary edema, unchanged. The heart size is normal. There is calcification in the aorta consistent with atherosclerosis. A moderate right pleural effusion is now larger with worse adjacent atelectasis. The small left pleu ral effusion is unchanged. There is no pneumothorax. IMPRESSION: 1. Larger right pleural effusion with worse adjacent atelectatic right lung. 2. No other change from 08/26/2017. RPTAT: QQ .Javi Bruno MD, MD Date Time Electronically viewed and signed by .Javi Bruno MD, on 08/27/2017 12:20 .R/
--- NOTE | 2017-08-27 13:14 | CONS ---
Date/Time of Note Date/Time of Note DATE: 08/27/17 TIME: 13:11 Consult Date/Type/Reason Admit Date/Time Aug 20, 2017 at 17:03 Initial Consult Date 08/20/17 Type of Consultation: Pulm/CCM Ordering Provider: HUSSEIN ROSE Subjective On vent. FiO2 at 100% Objective Vital Signs Date Time Temp Pulse Resp B/P Pulse Ox O2 Delivery O2 Flow Rate FiO2 08/27/17 12:30 60 08/27/17 12:00 98.7 94 20 112/57 100 Mechanical Ventilator Intake and Output 08/26/17 08/26/17 08/27/17 15:00 23:00 07:00 Intake Total 530 ml 530 ml 380 ml Output Total 20 ml 15 ml 30 ml Balance 510 ml 515 ml 350 ml Exam HEENT: Neck supple; no JVD; no LAD; + trach with ++ secretions CVS: RRR, S1 and S2 CHEST: Coarse rhonchi B/L ABD: Soft, NT, + BS EXT: No c/c/ + edema Results/Medications Result Diagram: 08/27/170 08/27/17 0400 Results 24 hrs Laboratory Tests Test 08/26/17 18:06 08/26/17 20:45 08/27/17 01:11 08/27/17 04:00 Bedside Glucose 173 145 174 White Blood Count 7.8 # Red Blood Count 2.83 L Hemoglobin 8.2 L Hematocrit 25.8 L Mean Corpuscular Volume 91.2 Mean Corpuscular Hemoglobin 29.0 Mean Corpuscular Hemoglobin Concent 31.8 L Red Cell Distribution Width 16.0 H Platelet Count 55 L Mean Platelet Volume 11.4 H Neutrophils % 74.9 Lymphocytes % 15.8 Monocytes % 3.5 Eosinophils % 5.1 Basophils % 0.3 Nucleated Red Blood Cells % 0.0 Neutrophils # 5.8 Lymphocytes # 1.2 Monocytes # 0.3 Eosinophils # 0.4 Basophils # 0.0 Nucleated Red Blood Cells # 0.0 Sodium Level 139 Potassium Level 3.9 Chloride Level 104 Carbon Dioxide Level 25 Anion Gap 14 Blood Urea Nitrogen 89 H Creatinine 4.36 H Glucose Level 169 Calcium Level 8.0 L Phosphorus Level 4.6 Magnesium Level 1.7 Test 08/27/17 05:23 08/27/17 07:00 08/27/17 08:56 08/27/17 12:20 Bedside Glucose 190 193 99 Blood Gas Specimen Source Blood arterial Arterial Blood Date Drawn 08/27/2017 11:45:03 AM Arterial Blood pH (Temp corrected) 7.380 Arterial Blood pCO2 (Temp correct) 45.0 Arterial Blood pO2 (Temp corrected) 225.2 H Arterial Blood HCO3 26.0 Arterial Blood Base Excess 0.6 Arterial Blood Oxygen Saturation 99.3 Harsha Test ACCEPTAB Arterial Blood Gas Puncture Site Right Radial Arterial Blood Carboxyhemoglobin 0.3 Arterial Blood Methemoglobin 0.3 Blood Gas A-a O2 Differential 442.8 H Oxyhemoglobin Percent 98.7 Total Hemoglobin 10.7 L Blood Gas Temperature 37.0 Blood Gas Respiration Rate 18.0 Blood Gas Actual Respiration Rate 20 Blood Gas Modality VENT - AC FiO2 100.0 Blood Gas Tidal Volume 500.0 Blood Gas Low PEEP Setting 8.0 Blood Gas Critical Value Read Back Rafaela CUMMINGS RN Blood Gas Notified Whom RDIX Blood Gas Notified Time 08/27/2017 12:02:10 PM Medications Current Medications Piperacillin Sod/ Tazobactam Sod (Zosyn 2.25gm/ 50ml (Pmx)) 50 ml @ 100 mls/hr Q8 IVPB Last administered on 08/27/17 06:11; Admin Dose 100 MLS/HR; Start 08/22/17 at 08:30 Diagnostic Test (Pha) (Accu-Chek) 1 ea 02 XX Last administered on 08/27/17 01: 12; Admin Dose 1 EA; Start 08/23/17 at 02:00 Insulin Aspart (Novolog Insulin Pen) NOVOLOG *MILD* ALGORITHM Q4 SC Last administered on 08/27/17 09:08; Admin Dose 2 UNIT; Start 08/22/17 at 17:00 Miscellaneous Information 1 ea NOTE XX ; Start 08/22/17 at 13:30 Glucose (Glutose) 15 gm Q15M PRN PO DECREASED GLUCOSE; Start 08/22/17 at 13:30 Glucose (Glutose) 22.5 gm Q15M PRN PO DECREASED GLUCOSE; Start 08/22/17 at 13: 30 Dextrose (D50w Syringe) 25 ml Q15M PRN IV DECREASED GLUCOSE; Start 08/22/17 at 13:30 Dextrose (D50w Syringe) 50 ml Q15M PRN IV DECREASED GLUCOSE; Start 08/22/17 at 13:30 Glucagon (Glucagen) 1 mg Q15M PRN IM DECREASED GLUCOSE; Start 08/22/17 at 13:30 Glucose (Glutose) 15 gm Q15M PRN BUCCAL DECREASED GLUCOSE; Start 08/22/17 at 13 :30 Sodium Hypochlorite (Dakin'S (Dilute 1/40%)) 1 applic BID IRR Last administered on 08/27/17 09:02; Admin Dose 1 APPLIC; Start 08/23/17 at 09:00 Metoprolol Tartrate (Lopressor) 50 mg BID GTB Last administered on 08/27/17 09 :02; Admin Dose 50 MG; Start 08/24/17 at 21:00 Acetaminophen (Tylenol Tab) 500 mg Q4H PRN PO PAIN AND OR ELEVATED TEMP Last administered on 08/27/17 01:27; Admin Dose 500 MG; Start 08/25/17 at 12:00 Morphine Sulfate (morphine) 2 mg Q4H PRN IV PAIN LEVEL 4-6 Last administered on 08/27/17 06:12; Admin Dose 2 MG; Start 08/25/17 at 12:00 Famotidine (Pepcid Iv) 20 mg DAILY IV Last administered on 08/27/17 09:02; Admin Dose 20 MG; Start 08/27/17 at 09:00 Assessment/Plan Chief Complaint/Hosp Course Briefly, this is an 81-year-old male with a history of chronic resp failure s/p trach, HTN, CHF, CVA, CKD, SNF resident who presents to the emergency room after being sent in by his primary care physician for evaluation of his BUN and creatinine. In the ED, he was noted to be more hypoxemic than baseline with severe renal failure, seen by Renal. Problems: Additional Assessment/Plan dditional Assessment/Plan IMP: 1. AMS--likely multifactorial and related to a combination of uremia, sepsis, and a poor baseline 2. Hypoxemic Resp Failure/ARDS 3. Acute on CKD 4. Demand ischemia 5. CHF 6. Anemia RECS: 1. Vent support: Reduced FiO2 to 60%; PEEP 8 2. Am ABG 3. Lung protective vent strategy; reduce VT to 6 ml/kg 4. TF/Free H20 35 min cc time GLO COLEY MD Aug 27, 2017 13:14
--- NOTE | 2017-08-27 14:05 | CONS ---
Date/Time of Note Date/Time of Note DATE: 08/27/17 TIME: 13:59 Assessment/Plan Assessment/Plan Additional Assessment/Plan ACS Cardiomyopathy EF 40% Renal failure Abnormal electrocardiogram Hypoxic respiratory failure s/p on vent CHF Anemia Hypertension Diabetes stroke hemodynamically stable not on any vasopressors Continue Vent Support Avoid Volume overload Continue Antibiotics Continue Pepcid Continue Lovenox Continue Pulmonary toiletry Continue Insulin started on lisinopril HD as scheduled Consultation Date/Type/Reason Admit Date/Time Aug 20, 2017 at 17:03 Hx of Present Illness Gen: no responsive and intubated Neck : Trach on Vent CVS Tachycardic, no m/r/g RS Crackles and mechanical breath sounds heard bilaterally Abd: BS present Ext: trace pedal edema Psychological: no complaints Past Medical History Medical History: congestive heart failure, diabetes, hypertension, other (H/o CVA with residual weakness) Past Surgical History Past Surgical Hx: other (Tracheostomhy) Social History Alcohol Use: none Smoking Status: Unknown if ever smoked Drug Use: none Exam/Review of Systems Vital Signs Vitals Vital Signs Date Time Temp Pulse Resp B/P Pulse Ox O2 Delivery O2 Flow Rate FiO2 08/27/17 12:30 60 08/27/17 12:00 98.7 94 20 112/57 100 Mechanical Ventilator Intake and Output 08/26/17 08/26/17 08/27/17 15:00 23:00 07:00 Intake Total 530 ml 530 ml 380 ml Output Total 20 ml 15 ml 30 ml Balance 510 ml 515 ml 350 ml Results Result Diagram: 08/27/17 0400 08/27/17 0400 Results 24 hrs Laboratory Tests Test 08/26/17 18:06 08/26/17 20:45 08/27/17 01:11 08/27/17 04:00 Bedside Glucose 173 145 174 White Blood Count 7.8 # Red Blood Count 2.83 L Hemoglobin 8.2 L Hematocrit 25.8 L Mean Corpuscular Volume 91.2 Mean Corpuscular Hemoglobin 29.0 Mean Corpuscular Hemoglobin Concent 31.8 L Red Cell Distribution Width 16.0 H Platelet Count 55 L Mean Platelet Volume 11.4 H Neutrophils % 74.9 Lymphocytes % 15.8 Monocytes % 3.5 Eosinophils % 5.1 Basophils % 0.3 Nucleated Red Blood Cells % 0.0 Neutrophils # 5.8 Lymphocytes # 1.2 Monocytes # 0.3 Eosinophils # 0.4 Basophils # 0.0 Nucleated Red Blood Cells # 0.0 Sodium Level 139 Potassium Level 3.9 Chloride Level 104 Carbon Dioxide Level 25 Anion Gap 14 Blood Urea Nitrogen 89 H Creatinine 4.36 H Glucose Level 169 Calcium Level 8.0 L Phosphorus Level 4.6 Magnesium Level 1.7 Test 08/27/17 05:23 08/27/17 07:00 08/27/17 08:56 08/27/17 12:20 Bedside Glucose 190 193 99 Blood Gas Specimen Source Blood arterial Arterial Blood Date Drawn 08/27/2017 11:45:03 AM Arterial Blood pH (Temp corrected) 7.380 Arterial Blood pCO2 (Temp correct) 45.0 Arterial Blood pO2 (Temp corrected) 225.2 H Arterial Blood HCO3 26.0 Arterial Blood Base Excess 0.6 Arterial Blood Oxygen Saturation 99.3 Harsha Test ACCEPTAB Arterial Blood Gas Puncture Site Right Radial Arterial Blood Carboxyhemoglobin 0.3 Arterial Blood Methemoglobin 0.3 Blood Gas A-a O2 Differential 442.8 H Oxyhemoglobin Percent 98.7 Total Hemoglobin 10.7 L Blood Gas Temperature 37.0 Blood Gas Respiration Rate 18.0 Blood Gas Actual Respiration Rate 20 Blood Gas Modality VENT - AC FiO2 100.0 Blood Gas Tidal Volume 500.0 Blood Gas Low PEEP Setting 8.0 Blood Gas Critical Value Read Back Rafaela CUMMINGS RN Blood Gas Notified Whom RDIX Blood Gas Notified Time 08/27/2017 12:02:10 PM Medications Medications Current Medications Piperacillin Sod/ Tazobactam Sod (Zosyn 2.25gm/ 50ml (Pmx)) 50 ml @ 100 mls/hr Q8 IVPB Last administered on 08/27/17 13:28; Admin Dose 100 MLS/HR; Start 08/22/17 at 08:30 Diagnostic Test (Pha) (Accu-Chek) 1 ea 02 XX Last administered on 08/27/17 01: 12; Admin Dose 1 EA; Start 08/23/17 at 02:00 Insulin Aspart (Novolog Insulin Pen) NOVOLOG *MILD* ALGORITHM Q4 SC Last administered on 08/27/17 09:08; Admin Dose 2 UNIT; Start 08/22/17 at 17:00 Miscellaneous Information 1 ea NOTE XX ; Start 08/22/17 at 13:30 Glucose (Glutose) 15 gm Q15M PRN PO DECREASED GLUCOSE; Start 08/22/17 at 13:30 Glucose (Glutose) 22.5 gm Q15M PRN PO DECREASED GLUCOSE; Start 08/22/17 at 13: 30 Dextrose (D50w Syringe) 25 ml Q15M PRN IV DECREASED GLUCOSE; Start 08/22/17 at 13:30 Dextrose (D50w Syringe) 50 ml Q15M PRN IV DECREASED GLUCOSE; Start 08/22/17 at 13:30 Glucagon (Glucagen) 1 mg Q15M PRN IM DECREASED GLUCOSE; Start 08/22/17 at 13:30 Glucose (Glutose) 15 gm Q15M PRN BUCCAL DECREASED GLUCOSE; Start 08/22/17 at 13 :30 Sodium Hypochlorite (Dakin'S (Dilute 1/40%)) 1 applic BID IRR Last administered on 08/27/17 09:02; Admin Dose 1 APPLIC; Start 08/23/17 at 09:00 Metoprolol Tartrate (Lopressor) 50 mg BID GTB Last administered on 08/27/17 09 :02; Admin Dose 50 MG; Start 08/24/17 at 21:00 Acetaminophen (Tylenol Tab) 500 mg Q4H PRN PO PAIN AND OR ELEVATED TEMP Last administered on 08/27/17 01:27; Admin Dose 500 MG; Start 08/25/17 at 12:00 Morphine Sulfate (morphine) 2 mg Q4H PRN IV PAIN LEVEL 4-6 Last administered on 08/27/17 06:12; Admin Dose 2 MG; Start 08/25/17 at 12:00 Famotidine (Pepcid Iv) 20 mg DAILY IV Last administered on 08/27/17 09:02; Admin Dose 20 MG; Start 08/27/17 at 09:00 VAL NAPIER M.D. Aug 27, 2017 14:05
--- NOTE | 2017-08-27 15:03 | CONS ---
Date/Time of Note Date/Time of Note DATE: 08/27/17 TIME: 15:01 Assessment/Plan Assessment/Plan Additional Assessment/Plan 1. Sepsis due to PNA 2. Acute on chronic renal failure - with severe metabolic acidosis and acute uremic encephalopathy- pt is anuric, started on HD during this admission 3. AMS due to acute uremic encephalopathy + acute metabolic encephalopathy 3. [place] [facility] [place] 4. H/o chronic resp failure s/p tracheostomy 5. HTN 6. H/o CVA with residual weakness 7.. IDDM Plan: started on HD during this admission, plan for HD [place] , weaning plan as per pulmonary Hepatitis panel, HIV negative pt will be [facility] HD patient.,-will wait for pt to be more stable and platelets to stabilize before planning for [facility] HD and permacath,d/w son on phone on 08/25/17 IV abx as per ID will follow up Consultation Date/Type/Reason Admit Date/Time Aug 20, 2017 at 17:03 Initial Consult Date 08/20/17 Type of Consultation: NEPHROLOGY Referring Provider: HUSSEIN ROSE 24 HR Interval Summary Free Text/Dictation pt remained in ICU, plan for HD today Exam/Review of Systems Vital Signs Vitals Vital Signs Date Time Temp Pulse Resp B/P Pulse Ox O2 Delivery O2 Flow Rate FiO2 08/27/17 12:30 60 08/27/17 12:00 98.7 94 20 112/57 100 Mechanical Ventilator Intake and Output 08/26/17 08/26/17 08/27/17 15:00 23:00 07:00 Intake Total 530 ml 530 ml 380 ml Output Total 20 ml 15 ml 30 ml Balance 510 ml 515 ml 350 ml Exam Constitutional: non-verbal Head: normocephalic ENMT: other (+ tracheostomy on ventilator ) Neck: non-tender, supple Respiratory: congested cough, crackles/rales, diminished breath sounds Cardiovascular: S3, regular rate and rhythm Gastrointestinal: non-tender, soft Musculoskeletal: other (2+ pittign edema ), swelling Neurological: other (non verbal ,lethargic, pt is s/p tracheostomy on ventilator ) Results Result Diagram: 08/27/17 0400 08/27/17 0400 Results 24 hrs Laboratory Tests Test 08/26/17 18:06 08/26/17 20:45 08/27/17 01:11 08/27/17 04:00 Bedside Glucose 173 145 174 White Blood Count 7.8 # Red Blood Count 2.83 L Hemoglobin 8.2 L Hematocrit 25.8 L Mean Corpuscular Volume 91.2 Mean Corpuscular Hemoglobin 29.0 Mean Corpuscular Hemoglobin Concent 31.8 L Red Cell Distribution Width 16.0 H Platelet Count 55 L Mean Platelet Volume 11.4 H Neutrophils % 74.9 Lymphocytes % 15.8 Monocytes % 3.5 Eosinophils % 5.1 Basophils % 0.3 Nucleated Red Blood Cells % 0.0 Neutrophils # 5.8 Lymphocytes # 1.2 Monocytes # 0.3 Eosinophils # 0.4 Basophils # 0.0 Nucleated Red Blood Cells # 0.0 Sodium Level 139 Potassium Level 3.9 Chloride Level 104 Carbon Dioxide Level 25 Anion Gap 14 Blood Urea Nitrogen 89 H Creatinine 4.36 H Glucose Level 169 Calcium Level 8.0 L Phosphorus Level 4.6 Magnesium Level 1.7 Test 08/27/17 05:23 08/27/17 07:00 08/27/17 08:56 08/27/17 12:20 Bedside Glucose 190 193 99 Blood Gas Specimen Source Blood arterial Arterial Blood Date Drawn 08/27/2017 11:45:03 AM Arterial Blood pH (Temp corrected) 7.380 Arterial Blood pCO2 (Temp correct) 45.0 Arterial Blood pO2 (Temp corrected) 225.2 H Arterial Blood HCO3 26.0 Arterial Blood Base Excess 0.6 Arterial Blood Oxygen Saturation 99.3 Harsha Test ACCEPTAB Arterial Blood Gas Puncture Site Right Radial Arterial Blood Carboxyhemoglobin 0.3 Arterial Blood Methemoglobin 0.3 Blood Gas A-a O2 Differential 442.8 H Oxyhemoglobin Percent 98.7 Total Hemoglobin 10.7 L Blood Gas Temperature 37.0 Blood Gas Respiration Rate 18.0 Blood Gas Actual Respiration Rate 20 Blood Gas Modality VENT - AC FiO2 100.0 Blood Gas Tidal Volume 500.0 Blood Gas Low PEEP Setting 8.0 Blood Gas Critical Value Read Back Rafaela CUMMINGS RN Blood Gas Notified Whom RDIX Blood Gas Notified Time 08/27/2017 12:02:10 PM Medications Medications Current Medications Piperacillin Sod/ Tazobactam Sod (Zosyn 2.25gm/ 50ml (Pmx)) 50 ml @ 100 mls/hr Q8 IVPB Last administered on 08/27/17t 13:28; Admin Dose 100 MLS/HR; Start 08/22/17 at 08:30 Diagnostic Test (Pha) (Accu-Chek) 1 ea 02 XX Last administered on 08/27/17 01: 12; Admin Dose 1 EA; Start 08/23/17 at 02:00 Insulin Aspart (Novolog Insulin Pen) NOVOLOG *MILD* ALGORITHM Q4 SC Last administered on 08/27/17 09:08; Admin Dose 2 UNIT; Start 08/22/17 at 17:00 Miscellaneous Information 1 ea NOTE XX ; Start 08/22/17 at 13:30 Glucose (Glutose) 15 gm Q15M PRN PO DECREASED GLUCOSE; Start 08/22/17 at 13:30 Glucose (Glutose) 22.5 gm Q15M PRN PO DECREASED GLUCOSE; Start 08/22/17 at 13: 30 Dextrose (D50w Syringe) 25 ml Q15M PRN IV DECREASED GLUCOSE; Start 08/22/17 at 13:30 Dextrose (D50w Syringe) 50 ml Q15M PRN IV DECREASED GLUCOSE; Start 08/22/17 at 13:30 Glucagon (Glucagen) 1 mg Q15M PRN IM DECREASED GLUCOSE; Start 08/22/17 at 13:30 Glucose (Glutose) 15 gm Q15M PRN BUCCAL DECREASED GLUCOSE; Start 08/22/17 at 13 :30 Sodium Hypochlorite (Dakin'S (Dilute 1/40%)) 1 applic BID IRR Last administered on 08/27/17 09:02; Admin Dose 1 APPLIC; Start 08/23/17 at 09:00 Metoprolol Tartrate (Lopressor) 50 mg BID GTB Last administered on 08/27/17 09 :02; Admin Dose 50 MG; Start 08/24/17 at 21:00 Acetaminophen (Tylenol Tab) 500 mg Q4H PRN PO PAIN AND OR ELEVATED TEMP Last administered on 08/27/17 01:27; Admin Dose 500 MG; Start 08/25/17 at 12:00 Morphine Sulfate (morphine) 2 mg Q4H PRN IV PAIN LEVEL 4-6 Last administered on 08/27/17 06:12; Admin Dose 2 MG; Start 08/25/17 at 12:00 Famotidine (Pepcid Iv) 20 mg DAILY IV Last administered on 08/27/17 09:02; Admin Dose 20 MG; Start 08/27/17 at 09:00 Lisinopril (Zestril) 5 mg DAILY PO ; Start 08/27/17 at 14:30 LUCILLE CABALLERO MD Aug 27, 2017 15:03
[2017-08-27] MEDS: LISINOPRIL 5 MG TAB PO SCH (16:55)
--- NOTE | 2017-08-27 18:08 | PN ---
Date/Time of Note Date/Time of Note DATE: 08/27/17 TIME: 17:49 Assessment/Plan VTE Prophylaxis VTE Prophylaxis Intervention: other Lines/Catheters IV Catheter Type (from Nrs): PICC Line Urinary Cath still in place: Yes Assessment/Plan Assessment/Plan -Ventilator dependent respiratory failure with tracheostomy. -Pulmonary edema versus multifocal pneumonia, continue broad-spectrum antibiotics -Positive troponin in the setting of renal disease, Dr. Zuniga is following in cardiology consultation -Acute metabolic encephalopathy -Anemia, s/p blood transfusion, f/up on stool for OB, continue to monitor hemoglobin and hematocrit -DM, NovoLog per sliding scale. -Dysphagia with PEG Further recommendations based on clinical course. Plan of care discussed with Dr. Chávez. Subjective 24 Hr Interval Summary Free Text/Dictation HD today, GCS= 8, tolerates feeding, FC- 15 cc urine so far, dw staff, no new events last night. Subjective hx not possible: pt non-verbal Constitutional: requiring IVF, requiring O2 Exam/Review of Systems Vital Signs Vitals Vital Signs Date Time Temp Pulse Resp B/P Pulse Ox O2 Delivery O2 Flow Rate FiO2 08/27/17 16:00 99 08/27/17 16:00 97.4 20 115/50 100 Mechanical Ventilator 08/27/17 15:40 70 Intake and Output 08/26/17 08/26/17 08/27/17 15:00 23:00 07:00 Intake Total 530 ml 530 ml 380 ml Output Total 20 ml 15 ml 30 ml Balance 510 ml 515 ml 350 ml Exam Constitutional: non-verbal Respiratory: diminished breath sounds Cardiovascular: nl pulses Musculoskeletal: muscle weakness Extremities: edema Neurological: unresponsive Results Result Diagram: 08/27/17 0400 08/27/17 0400 Results 24 hrs Laboratory Tests Test 08/26/17 18:06 08/26/17 20:45 08/27/17 01:11 08/27/17 04:00 Bedside Glucose 173 145 174 White Blood Count 7.8 # Red Blood Count 2.83 L Hemoglobin 8.2 L Hematocrit 25.8 L Mean Corpuscular Volume 91.2 Mean Corpuscular Hemoglobin 29.0 Mean Corpuscular Hemoglobin Concent 31.8 L Red Cell Distribution Width 16.0 H Platelet Count 55 L Mean Platelet Volume 11.4 H Neutrophils % 74.9 Lymphocytes % 15.8 Monocytes % 3.5 Eosinophils % 5.1 Basophils % 0.3 Nucleated Red Blood Cells % 0.0 Neutrophils # 5.8 Lymphocytes # 1.2 Monocytes # 0.3 Eosinophils # 0.4 Basophils # 0.0 Nucleated Red Blood Cells # 0.0 Sodium Level 139 Potassium Level 3.9 Chloride Level 104 Carbon Dioxide Level 25 Anion Gap 14 Blood Urea Nitrogen 89 H Creatinine 4.36 H Glucose Level 169 Calcium Level 8.0 L Phosphorus Level 4.6 Magnesium Level 1.7 Test 08/27/17 05:23 08/27/17 07:00 08/27/17 08:56 08/27/17 12:20 Bedside Glucose 190 193 99 Blood Gas Specimen Source Blood arterial Arterial Blood Date Drawn 08/27/2017 11:45:03 AM Arterial Blood pH (Temp corrected) 7.380 Arterial Blood pCO2 (Temp correct) 45.0 Arterial Blood pO2 (Temp corrected) 225.2 H Arterial Blood HCO3 26.0 Arterial Blood Base Excess 0.6 Arterial Blood Oxygen Saturation 99.3 Harsha Test ACCEPTAB Arterial Blood Gas Puncture Site Right Radial Arterial Blood Carboxyhemoglobin 0.3 Arterial Blood Methemoglobin 0.3 Blood Gas A-a O2 Differential 442.8 H Oxyhemoglobin Percent 98.7 Total Hemoglobin 10.7 L Blood Gas Temperature 37.0 Blood Gas Respiration Rate 18.0 Blood Gas Actual Respiration Rate 20 Blood Gas Modality VENT - AC FiO2 100.0 Blood Gas Tidal Volume 500.0 Blood Gas Low PEEP Setting 8.0 Blood Gas Critical Value Read Back Rafaela CUMMINGS RN Blood Gas Notified Whom RDIX Blood Gas Notified Time 08/27/2017 12:02:10 PM Test 08/27/17 17:36 Bedside Glucose 139 Medications Medications Current Medications Piperacillin Sod/ Tazobactam Sod (Zosyn 2.25gm/ 50ml (Pmx)) 50 ml @ 100 mls/hr Q8 IVPB Last administered on 08/27/17 13:28; Admin Dose 100 MLS/HR; Start 08/22/17 at 08:30 Diagnostic Test (Pha) (Accu-Chek) 1 ea 02 XX Last administered on 08/27/17 01: 12; Admin Dose 1 EA; Start 08/23/17 at 02:00 Insulin Aspart (Novolog Insulin Pen) NOVOLOG *MILD* ALGORITHM Q4 SC Last administered on 08/27/17 09:08; Admin Dose 2 UNIT; Start 08/22/17 at 17:00 Miscellaneous Information 1 ea NOTE XX ; Start 08/22/17 at 13:30 Glucose (Glutose) 15 gm Q15M PRN PO DECREASED GLUCOSE; Start 08/22/17 at 13:30 Glucose (Glutose) 22.5 gm Q15M PRN PO DECREASED GLUCOSE; Start 08/22/17 at 13: 30 Dextrose (D50w Syringe) 25 ml Q15M PRN IV DECREASED GLUCOSE; Start 08/22/17 at 13:30 Dextrose (D50w Syringe) 50 ml Q15M PRN IV DECREASED GLUCOSE; Start 08/22/17 at 13:30 Glucagon (Glucagen) 1 mg Q15M PRN IM DECREASED GLUCOSE; Start 08/22/17 at 13:30 Glucose (Glutose) 15 gm Q15M PRN BUCCAL DECREASED GLUCOSE; Start 08/22/17 at 13 :30 Sodium Hypochlorite (Dakin'S (Dilute 1/40%)) 1 applic BID IRR Last administered on 08/27/17 09:02; Admin Dose 1 APPLIC; Start 08/23/17 at 09:00 Metoprolol Tartrate (Lopressor) 50 mg BID GTB Last administered on 08/27/17 09 :02; Admin Dose 50 MG; Start 08/24/17 at 21:00 Acetaminophen (Tylenol Tab) 500 mg Q4H PRN PO PAIN AND OR ELEVATED TEMP Last administered on 08/27/17 01:27; Admin Dose 500 MG; Start 08/25/17 at 12:00 Morphine Sulfate (morphine) 2 mg Q4H PRN IV PAIN LEVEL 4-6 Last administered on 08/27/17 06:12; Admin Dose 2 MG; Start 08/25/17 at 12:00 Famotidine (Pepcid Iv) 20 mg DAILY IV Last administered on 08/27/17 09:02; Admin Dose 20 MG; Start 08/27/17 at 09:00 Lisinopril (Zestril) 5 mg DAILY PO Last administered on 08/27/17 16:55; Admin Dose 5 MG; Start 08/27/17 at 14:30 LEILA GARCIA Aug 27, 2017 17:59
[2017-08-28] VITALS (29 sets, daily range): BP systolic 108–164; BP diastolic 50–74; PULSE 92–123; RESP 14–32
[2017-08-28] MEDS: SODIUM HYPOCHLORITE 1/40% 1L IRRIG IRR SCH ×3 (00:11→22:16)
[2017-08-28] MEDS: INSULIN ASPART [NOVOLOG] 3 ML PEN SC SCH ×6 (01:00→21:00)
[2017-08-28] MEDS: ACCU-CHEK XX SCH (01:42)
[2017-08-28] MEDS: PIPER-TAZO 2.25 GM (PMX) 50 ML IVPB SCH ×3 (05:14→22:14)
[2017-08-28] MEDS: FAMOTIDINE 20 MG INJ IV SCH (08:39)
[2017-08-28] MEDS: METOPROLOL 50 MG TAB GTB SCH ×2 (08:40→22:13)
[2017-08-28] MEDS: LISINOPRIL 5 MG TAB PO SCH (08:40)
--- NOTE | 2017-08-28 10:30 | RADRPT ---
PROCEDURE: XR Chest. CLINICAL INDICATION: Intubated, respiratory failure. TECHNIQUE: Anterior chest x-ray. COMPARISON: Chest radiograph performed the prior day. FINDINGS: There is stable and satisfactory position of the life-support lines. Of patchy airspace opacities throughout both lungs, unchanged from previous exam. There has been interval resolution of consolidation in the right upper lung zone. Previously described right pleural effusion is not seen on current exam. The cardiomediastinal contour is stable. There is no free air under the hemidiaphragms. The soft tissues and bony structures are unchanged. IMPRESSION: 1. Stable and satisfactory position of the life-support lines. 2. Patchy infiltrates versus pulmonary edema, throughout both lungs, unchanged from previous exam. RPTAT: QQ .Hemal Nava MD, Date Time Electronically viewed and signed by .Hemal Nava MD, on 08/28/2017 10:29 .M/
--- NOTE | 2017-08-28 10:44 | CONS ---
Date/Time of Note Date/Time of Note DATE: 08/28/17 TIME: 10:40 Assessment/Plan Assessment/Plan Additional Assessment/Plan 1. Sepsis due to PNA 2. Acute on chronic renal failure - with severe metabolic acidosis and acute uremic encephalopathy- pt is anuric, started on HD during this admission 3. AMS due to acute uremic encephalopathy + acute metabolic encephalopathy 3. H/o recent admission to [place] for renal failure 4. H/o chronic resp failure s/p tracheostomy 5. HTN 6. H/o CVA with residual weakness 7.. IDDM Plan: started on HD during this admission, s/p HD yesterday- 3 L removed, Plan for HD tomorrow, weaning plan as per pulmonary Hepatitis panel, HIV negative pt will be care home HD patient.,-will wait for pt to be more stable and platelets to stabilize before planning for intermediate card tender HD and permacath,d/w son on phone on 08/25/17 IV abx as per ID will follow up Consultation Date/Type/Reason Admit Date/Time Aug 20, 2017 at 17:03 Initial Consult Date 08/20/17 Type of Consultation: NEPHROLOGY Referring Provider: HUSSEIN ROSE 24 HR Interval Summary Free Text/Dictation pt stable, s/p HD yesterday 3.0 L removed Exam/Review of Systems Vital Signs Vitals Vital Signs Date Time Temp Pulse Resp B/P Pulse Ox O2 Delivery O2 Flow Rate FiO2 08/28/17 08:00 102 08/28/17 08:00 50 08/28/17 05:20 18 100 08/28/17 05:00 145/61 Mechanical Ventilator 08/28/17 04:00 98.0 Intake and Output 08/27/17 08/27/17 08/28/17 15:00 23:00 07:00 Intake Total 1000 ml 460 ml 290 ml Output Total 6520 ml 5 ml 20 ml Balance -5520 ml 455 ml 270 ml Exam Constitutional: non-verbal ENMT: other (+ tracheostomy on ventilator ) Respiratory: congested cough, crackles/rales, diminished breath sounds Cardiovascular: S3, regular rate and rhythm Gastrointestinal: non-tender, soft Musculoskeletal: other (2+ pittign edema ), swelling Neurological: other (non verbal ,lethargic, pt is s/p tracheostomy on ventilator ) Results Result Diagram: 08/28/1781617 0400 Results 24 hrs Laboratory Tests Test 08/27/17 12:20 08/27/17 17:36 08/27/17 20:37 08/28/17 01:41 Bedside Glucose 99 139 149 174 Test 08/28/17 04:00 08/28/17 05:00 08/28/17 05:16 08/28/17 08:17 White Blood Count 5.8 # Red Blood Count 2.33 L Hemoglobin 6.7 *L 7.4 L Hematocrit 21.3 L 24.0 L Mean Corpuscular Volume 91.4 Mean Corpuscular Hemoglobin 28.8 L Mean Corpuscular Hemoglobin Concent 31.5 L Red Cell Distribution Width 16.0 H Platelet Count 42 #L Mean Platelet Volume 11.9 H Neutrophils % 73.0 Lymphocytes % 19.0 Monocytes % 3.1 Eosinophils % 4.1 Basophils % 0.3 Nucleated Red Blood Cells % 0.0 Neutrophils # 4.3 Lymphocytes # 1.1 Monocytes # 0.2 L Eosinophils # 0.2 Basophils # 0.0 Nucleated Red Blood Cells # 0.0 Sodium Level 140 Potassium Level 3.8 Chloride Level 105 Carbon Dioxide Level 28 Anion Gap 11 Blood Urea Nitrogen 69 H Creatinine 3.78 H Glucose Level 170 Calcium Level 7.7 L Blood Gas Specimen Source Blood arterial Arterial Blood Date Drawn 08/28/2017 4:50:34 AM Arterial Blood pH (Temp corrected) 7.424 Arterial Blood pCO2 (Temp correct) 40.1 Arterial Blood pO2 (Temp corrected) 90.0 Arterial Blood HCO3 25.7 Arterial Blood Base Excess 1.2 Arterial Blood Oxygen Saturation 97.0 Harsha Test ACCEPTAB Arterial Blood Gas Puncture Site Right Radial Arterial Blood Carboxyhemoglobin 0.6 Arterial Blood Methemoglobin 0.2 Blood Gas A-a O2 Differential 221.4 H Oxyhemoglobin Percent 96.2 Total Hemoglobin 8.3 L Blood Gas Temperature 37.0 Blood Gas Respiration Rate 18.0 Blood Gas Actual Respiration Rate 21 Blood Gas Modality VENT - AC FiO2 50.0 Blood Gas Tidal Volume 500.0 Blood Gas Low PEEP Setting 8.0 Blood Gas Notified Whom UP Blood Gas Notified Time 08/28/2017 5:01:50 AM Bedside Glucose 177 Test 08/28/17 08:43 Bedside Glucose 194 Medications Medications Current Medications Piperacillin Sod/ Tazobactam Sod (Zosyn 2.25gm/ 50ml (Pmx)) 50 ml @ 100 mls/hr Q8 IVPB Last administered on 08/28/17 05:14; Admin Dose 100 MLS/HR; Start 08/22/17 at 08:30 Diagnostic Test (Pha) (Accu-Chek) 1 ea 02 XX Last administered on 08/27/17 01: 12; Admin Dose 1 EA; Start 08/23/17 at 02:00 Insulin Aspart (Novolog Insulin Pen) NOVOLOG *MILD* ALGORITHM Q4 SC Last administered on 08/28/17 08:45; Admin Dose 2 UNIT; Start 08/22/17 at 17:00 Miscellaneous Information 1 ea NOTE XX ; Start 08/22/17 at 13:30 Glucose (Glutose) 15 gm Q15M PRN PO DECREASED GLUCOSE; Start 08/22/17 at 13:30 Glucose (Glutose) 22.5 gm Q15M PRN PO DECREASED GLUCOSE; Start 08/22/17 at 13: 30 Dextrose (D50w Syringe) 25 ml Q15M PRN IV DECREASED GLUCOSE; Start 08/22/17 at 13:30 Dextrose (D50w Syringe) 50 ml Q15M PRN IV DECREASED GLUCOSE; Start 08/22/17 at 13:30 Glucagon (Glucagen) 1 mg Q15M PRN IM DECREASED GLUCOSE; Start 08/22/17 at 13:30 Glucose (Glutose) 15 gm Q15M PRN BUCCAL DECREASED GLUCOSE; Start 08/22/17 at 13 :30 Sodium Hypochlorite (Dakin'S (Dilute 1/40%)) 1 applic BID IRR Last administered on 08/28/17 08:40; Admin Dose 1 APPLIC; Start 08/23/17 at 09:00 Metoprolol Tartrate (Lopressor) 50 mg BID GTB Last administered on 08/28/17 08 :40; Admin Dose 50 MG; Start 08/24/17 at 21:00 Acetaminophen (Tylenol Tab) 500 mg Q4H PRN PO PAIN AND OR ELEVATED TEMP Last administered on 08/27/17 01:27; Admin Dose 500 MG; Start 08/25/17 at 12:00 Morphine Sulfate (morphine) 2 mg Q4H PRN IV PAIN LEVEL 4-6 Last administered on 08/27/17 06:12; Admin Dose 2 MG; Start 08/25/17 at 12:00 Famotidine (Pepcid Iv) 20 mg DAILY IV Last administered on 08/28/17 08:39; Admin Dose 20 MG; Start 08/27/17 at 09:00 Lisinopril (Zestril) 5 mg DAILY PO Last administered on 08/28/17 08:40; Admin Dose 5 MG; Start 08/27/17 at 14:30 LUCILLE CABALLERO MD Aug 28, 2017 10:43
--- NOTE | 2017-08-28 13:07 | CONS ---
Date/Time of Note Date/Time of Note DATE: 08/28/17 TIME: 13:05 Consult Date/Type/Reason Admit Date/Time Aug 20, 2017 at 17:03 Initial Consult Date 08/20/17 Type of Consultation: Pulm/CCM Ordering Provider: HUSSEIN ROSE Subjective Dropping H/H noted. No events otherwise. Objective Vital Signs Date Time Temp Pulse Resp B/P Pulse Ox O2 Delivery O2 Flow Rate FiO2 08/28/17 12:00 98.1 101 18 130/62 95 Mechanical Ventilator 08/28/17 08:00 50 Intake and Output 08/27/17 08/27/17 08/28/17 15:00 23:00 07:00 Intake Total 1000 ml 460 ml 290 ml Output Total 6520 ml 5 ml 20 ml Balance -5520 ml 455 ml 270 ml Exam HEENT: Neck supple; no JVD; no LAD; + trach with ++ secretions CVS: RRR, S1 and S2 CHEST: Coarse rhonchi B/L ABD: Soft, NT, + BS EXT: No c/c/ + edema Results/Medications Result Diagram: 08/28/17 0817 08/28/17 0400 Results 24 hrs Laboratory Tests Test 08/27/17 17:36 08/27/17 20:37 08/28/17 01:41 08/28/17 04:00 Bedside Glucose 139 149 174 White Blood Count 5.8 # Red Blood Count 2.33 L Hemoglobin 6.7 *L Hematocrit 21.3 L Mean Corpuscular Volume 91.4 Mean Corpuscular Hemoglobin 28.8 L Mean Corpuscular Hemoglobin Concent 31.5 L Red Cell Distribution Width 16.0 H Platelet Count 42 #L Mean Platelet Volume 11.9 H Neutrophils % 73.0 Lymphocytes % 19.0 Monocytes % 3.1 Eosinophils % 4.1 Basophils % 0.3 Nucleated Red Blood Cells % 0.0 Neutrophils # 4.3 Lymphocytes # 1.1 Monocytes # 0.2 L Eosinophils # 0.2 Basophils # 0.0 Nucleated Red Blood Cells # 0.0 Sodium Level 140 Potassium Level 3.8 Chloride Level 105 Carbon Dioxide Level 28 Anion Gap 11 Blood Urea Nitrogen 69 H Creatinine 3.78 H Glucose Level 170 Calcium Level 7.7 L Test 08/28/17 05:00 08/28/17 05:16 08/28/17 08:17 08/28/17 08:43 Blood Gas Specimen Source Blood arterial Arterial Blood Date Drawn 08/28/2017 4:50:34 AM Arterial Blood pH (Temp corrected) 7.424 Arterial Blood pCO2 (Temp correct) 40.1 Arterial Blood pO2 (Temp corrected) 90.0 Arterial Blood HCO3 25.7 Arterial Blood Base Excess 1.2 Arterial Blood Oxygen Saturation 97.0 Harsha Test ACCEPTAB Arterial Blood Gas Puncture Site Right Radial Arterial Blood Carboxyhemoglobin 0.6 Arterial Blood Methemoglobin 0.2 Blood Gas A-a O2 Differential 221.4 H Oxyhemoglobin Percent 96.2 Total Hemoglobin 8.3 L Blood Gas Temperature 37.0 Blood Gas Respiration Rate 18.0 Blood Gas Actual Respiration Rate 21 Blood Gas Modality VENT - AC FiO2 50.0 Blood Gas Tidal Volume 500.0 Blood Gas Low PEEP Setting 8.0 Blood Gas Notified Whom UP Blood Gas Notified Time 08/28/2017 5:01:50 AM Bedside Glucose 177 194 Hemoglobin 7.4 L Hematocrit 24.0 L Test 08/28/17 12:54 Bedside Glucose 131 Medications Current Medications Piperacillin Sod/ Tazobactam Sod (Zosyn 2.25gm/ 50ml (Pmx)) 50 ml @ 100 mls/hr Q8 IVPB Last administered on 08/28/17 05:14; Admin Dose 100 MLS/HR; Start 08/22/17 at 08:30 Diagnostic Test (Pha) (Accu-Chek) 1 ea 02 XX Last administered on 08/27/17 01: 12; Admin Dose 1 EA; Start 08/23/17 at 02:00 Insulin Aspart (Novolog Insulin Pen) NOVOLOG *MILD* ALGORITHM Q4 SC Last administered on 08/28/17 08:45; Admin Dose 2 UNIT; Start 08/22/17 at 17:00 Miscellaneous Information 1 ea NOTE XX ; Start 08/22/17 at 13:30 Glucose (Glutose) 15 gm Q15M PRN PO DECREASED GLUCOSE; Start 08/22/17 at 13:30 Glucose (Glutose) 22.5 gm Q15M PRN PO DECREASED GLUCOSE; Start 08/22/17 at 13: 30 Dextrose (D50w Syringe) 25 ml Q15M PRN IV DECREASED GLUCOSE; Start 08/22/17 at 13:30 Dextrose (D50w Syringe) 50 ml Q15M PRN IV DECREASED GLUCOSE; Start 08/22/17 at 13:30 Glucagon (Glucagen) 1 mg Q15M PRN IM DECREASED GLUCOSE; Start 08/22/17 at 13:30 Glucose (Glutose) 15 gm Q15M PRN BUCCAL DECREASED GLUCOSE; Start 08/22/17 at 13 :30 Sodium Hypochlorite (Dakin'S (Dilute 1/40%)) 1 applic BID IRR Last administered on 08/28/17 08:40; Admin Dose 1 APPLIC; Start 08/23/17 at 09:00 Metoprolol Tartrate (Lopressor) 50 mg BID GTB Last administered on 08/28/17 08 :40; Admin Dose 50 MG; Start 08/24/17 at 21:00 Acetaminophen (Tylenol Tab) 500 mg Q4H PRN PO PAIN AND OR ELEVATED TEMP Last administered on 08/27/17 01:27; Admin Dose 500 MG; Start 08/25/17 at 12:00 Morphine Sulfate (morphine) 2 mg Q4H PRN IV PAIN LEVEL 4-6 Last administered on 08/27/17 06:12; Admin Dose 2 MG; Start 08/25/17 at 12:00 Famotidine (Pepcid Iv) 20 mg DAILY IV Last administered on 08/28/17 08:39; Admin Dose 20 MG; Start 08/27/17 at 09:00 Lisinopril (Zestril) 5 mg DAILY PO Last administered on 08/28/17 08:40; Admin Dose 5 MG; Start 08/27/17 at 14:30 Miscellaneous Information (*Rx Drug Level Order Reminder*) RANDOM VANCOMYCIN LEVEL 1... ONCE ONCE XX ; Start 08/29/17 at 05:00; Stop 08/29/17 at 05:01 Assessment/Plan Chief Complaint/Hosp Course Briefly, this is an 81-year-old male with a history of chronic resp failure s/p trach, HTN, CHF, CVA, CKD, SNF resident who presents to the emergency room after being sent in by his primary care physician for evaluation of his BUN and creatinine. In the ED, he was noted to be more hypoxemic than baseline with severe renal failure, seen by Renal. Problems: Additional Assessment/Plan IMP: 1. AMS--likely multifactorial and related to a combination of uremia, sepsis, and a poor baseline 2. Hypoxemic Resp Failure/ARDS 3. Acute on CKD 4. Demand ischemia 5. CHF 6. Anemia RECS: 1. Vent support: Reduced FiO2 to 60%; PEEP 8 2. Am ABG 3. Lung protective vent strategy; reduce VT to 450 4. TF/Free H20 5. Transfuse 1 unit PRBC with HD 35 min cc time GLO COLEY MD Aug 28, 2017 13:07
--- NOTE | 2017-08-28 14:18 | CONS ---
Date/Time of Note Date/Time of Note DATE: 08/28/17 TIME: 14:16 Assessment/Plan Assessment/Plan Chief Complaint/Hosp Course Gen: no responsive and intubated Neck : Trach on Vent CVS Tachycardic, no m/r/g RS Crackles and mechanical breath sounds heard bilaterally Abd: BS present Ext: trace pedal edema Problems: Additional Assessment/Plan ACS Cardiomyopathy EF 40% Renal failure Abnormal electrocardiogram Hypoxic respiratory failure s/p on vent CHF Anemia Hypertension Diabetes stroke hemodynamically stable not on any vasopressors hemoglobin 6.7 Continue Vent Support Avoid Volume overload Continue Antibiotics Continue Pepcid Continue Lovenox Continue Pulmonary toiletry Continue Insulin Continue lisinopril HD as scheduled Transfuse 1Unit of pRBC Consultation Date/Type/Reason Admit Date/Time Aug 20, 2017 at 17:03 Initial Consult Date 08/20/17 Type of Consultation: Pulm/CCM Referring Provider: HUSSEIN ROSE Exam/Review of Systems Vital Signs Vitals Vital Signs Date Time Temp Pulse Resp B/P Pulse Ox O2 Delivery O2 Flow Rate FiO2 08/28/17 12:00 98.1 101 18 130/62 95 Mechanical Ventilator 08/28/17 08:00 50 Intake and Output 08/27/17 08/27/17 08/28/17 15:00 23:00 07:00 Intake Total 1000 ml 460 ml 290 ml Output Total 6520 ml 5 ml 20 ml Balance -5520 ml 455 ml 270 ml Exam Gen: non responsive and intubated Neck : Trach on Vent CVS Tachycardic, no m/r/g RS Crackles and mechanical breath sounds heard bilaterally Abd: BS present Ext: trace pedal edema Results Result Diagram: 08/28/17 0817 08/28/17 0400 Results 24 hrs Laboratory Tests Test 08/27/17 17:36 08/27/17 20:37 08/28/17 01:41 08/28/17 04:00 Bedside Glucose 139 149 174 White Blood Count 5.8 # Red Blood Count 2.33 L Hemoglobin 6.7 *L Hematocrit 21.3 L Mean Corpuscular Volume 91.4 Mean Corpuscular Hemoglobin 28.8 L Mean Corpuscular Hemoglobin Concent 31.5 L Red Cell Distribution Width 16.0 H Platelet Count 42 #L Mean Platelet Volume 11.9 H Neutrophils % 73.0 Lymphocytes % 19.0 Monocytes % 3.1 Eosinophils % 4.1 Basophils % 0.3 Nucleated Red Blood Cells % 0.0 Neutrophils # 4.3 Lymphocytes # 1.1 Monocytes # 0.2 L Eosinophils # 0.2 Basophils # 0.0 Nucleated Red Blood Cells # 0.0 Sodium Level 140 Potassium Level 3.8 Chloride Level 105 Carbon Dioxide Level 28 Anion Gap 11 Blood Urea Nitrogen 69 H Creatinine 3.78 H Glucose Level 170 Calcium Level 7.7 L Test 08/28/17 05:00 08/28/17 05:16 08/28/17 08:17 08/28/17 08:43 Blood Gas Specimen Source Blood arterial Arterial Blood Date Drawn 08/28/2017 4:50:34 AM Arterial Blood pH (Temp corrected) 7.424 Arterial Blood pCO2 (Temp correct) 40.1 Arterial Blood pO2 (Temp corrected) 90.0 Arterial Blood HCO3 25.7 Arterial Blood Base Excess 1.2 Arterial Blood Oxygen Saturation 97.0 Harsha Test ACCEPTAB Arterial Blood Gas Puncture Site Right Radial Arterial Blood Carboxyhemoglobin 0.6 Arterial Blood Methemoglobin 0.2 Blood Gas A-a O2 Differential 221.4 H Oxyhemoglobin Percent 96.2 Total Hemoglobin 8.3 L Blood Gas Temperature 37.0 Blood Gas Respiration Rate 18.0 Blood Gas Actual Respiration Rate 21 Blood Gas Modality VENT - AC FiO2 50.0 Blood Gas Tidal Volume 500.0 Blood Gas Low PEEP Setting 8.0 Blood Gas Notified Whom UP Blood Gas Notified Time 08/28/2017 5:01:50 AM Bedside Glucose 177 194 Hemoglobin 7.4 L Hematocrit 24.0 L Test 08/28/17 12:54 Bedside Glucose 131 Medications Medications Current Medications Piperacillin Sod/ Tazobactam Sod (Zosyn 2.25gm/ 50ml (Pmx)) 50 ml @ 100 mls/hr Q8 IVPB Last administered on 08/28/17 14:14; Admin Dose 100 MLS/HR; Start 08/22/17 at 08:30 Diagnostic Test (Pha) (Accu-Chek) 1 ea 02 XX Last administered on 08/27/17 01: 12; Admin Dose 1 EA; Start 08/23/17 at 02:00 Insulin Aspart (Novolog Insulin Pen) NOVOLOG *MILD* ALGORITHM Q4 SC Last administered on 08/28/17 08:45; Admin Dose 2 UNIT; Start 08/22/17 at 17:00 Miscellaneous Information 1 ea NOTE XX ; Start 08/22/17 at 13:30 Glucose (Glutose) 15 gm Q15M PRN PO DECREASED GLUCOSE; Start 08/22/17 at 13:30 Glucose (Glutose) 22.5 gm Q15M PRN PO DECREASED GLUCOSE; Start 08/22/17 at 13: 30 Dextrose (D50w Syringe) 25 ml Q15M PRN IV DECREASED GLUCOSE; Start 08/22/17 at 13:30 Dextrose (D50w Syringe) 50 ml Q15M PRN IV DECREASED GLUCOSE; Start 08/22/17 at 13:30 Glucagon (Glucagen) 1 mg Q15M PRN IM DECREASED GLUCOSE; Start 08/22/17 at 13:30 Glucose (Glutose) 15 gm Q15M PRN BUCCAL DECREASED GLUCOSE; Start 08/22/17 at 13 :30 Sodium Hypochlorite (Dakin'S (Dilute 1/40%)) 1 applic BID IRR Last administered on 08/28/17 08:40; Admin Dose 1 APPLIC; Start 08/23/17 at 09:00 Metoprolol Tartrate (Lopressor) 50 mg BID GTB Last administered on 08/28/17 08 :40; Admin Dose 50 MG; Start 08/24/17 at 21:00 Acetaminophen (Tylenol Tab) 500 mg Q4H PRN PO PAIN AND OR ELEVATED TEMP Last administered on 08/27/17 01:27; Admin Dose 500 MG; Start 08/25/17 at 12:00 Morphine Sulfate (morphine) 2 mg Q4H PRN IV PAIN LEVEL 4-6 Last administered on 08/27/17 06:12; Admin Dose 2 MG; Start 08/25/17 at 12:00 Famotidine (Pepcid Iv) 20 mg DAILY IV Last administered on 08/28/17 08:39; Admin Dose 20 MG; Start 08/27/17 at 09:00 Lisinopril (Zestril) 5 mg DAILY PO Last administered on 08/28/17 08:40; Admin Dose 5 MG; Start 08/27/17 at 14:30 Miscellaneous Information (*Rx Drug Level Order Reminder*) RANDOM VANCOMYCIN LEVEL 1... ONCE ONCE XX ; Start 08/29/17 at 05:00; Stop 08/29/17 at 05:01 VAL NAPIER M.D. Aug 28, 2017 14:18
--- NOTE | 2017-08-28 16:38 | PN ---
Date/Time of Note Date/Time of Note DATE: 08/28/17 TIME: 16:36 Assessment/Plan VTE Prophylaxis VTE Prophylaxis Intervention: other Lines/Catheters IV Catheter Type (from Nrs): PICC Line Urinary Cath still in place: Yes Assessment/Plan Assessment/Plan -Ventilator dependent respiratory failure with tracheostomy. -Pulmonary edema versus multifocal pneumonia, continue broad-spectrum antibiotics -Positive troponin in the setting of renal disease, Dr. Zuniga is following in cardiology consultation -Acute metabolic encephalopathy -Anemia, s/p blood transfusion, f/up on stool for OB, continue to monitor hemoglobin and hematocrit -DM, NovoLog per sliding scale. -Dysphagia with PEG Further recommendations based on clinical course. Plan of care discussed with Dr. Chávez. Subjective 24 Hr Interval Summary Free Text/Dictation GCS= 8, tolerates feeding, FC- 45 cc urine so far, H/H dropped- patient will get PRBC transfusion with HD per Dr Nieto, staff, no new events last night. Constitutional: requiring IVF, requiring O2 Exam/Review of Systems Vital Signs Vitals Vital Signs Date Time Temp Pulse Resp B/P Pulse Ox O2 Delivery O2 Flow Rate FiO2 08/28/17 13:00 102 21 100 50 08/28/17 12:00 98.1 130/62 Mechanical Ventilator Intake and Output 08/27/17 08/27/17 08/28/17 15:00 23:00 07:00 Intake Total 1000 ml 460 ml 290 ml Output Total 6520 ml 5 ml 20 ml Balance -5520 ml 455 ml 270 ml Exam Constitutional: frail, non-verbal Respiratory: diminished breath sounds Cardiovascular: other (diminshed pulses due to edema) Gastrointestinal: soft Neurological: unresponsive Results Result Diagram: 08/28/17 0817 08/28/17 0400 Results 24 hrs Laboratory Tests Test 08/27/17 17:36 08/27/17 20:37 08/28/17 01:41 08/28/17 04:00 Bedside Glucose 139 149 174 White Blood Count 5.8 # Red Blood Count 2.33 L Hemoglobin 6.7 *L Hematocrit 21.3 L Mean Corpuscular Volume 91.4 Mean Corpuscular Hemoglobin 28.8 L Mean Corpuscular Hemoglobin Concent 31.5 L Red Cell Distribution Width 16.0 H Platelet Count 42 #L Mean Platelet Volume 11.9 H Neutrophils % 73.0 Lymphocytes % 19.0 Monocytes % 3.1 Eosinophils % 4.1 Basophils % 0.3 Nucleated Red Blood Cells % 0.0 Neutrophils # 4.3 Lymphocytes # 1.1 Monocytes # 0.2 L Eosinophils # 0.2 Basophils # 0.0 Nucleated Red Blood Cells # 0.0 Sodium Level 140 Potassium Level 3.8 Chloride Level 105 Carbon Dioxide Level 28 Anion Gap 11 Blood Urea Nitrogen 69 H Creatinine 3.78 H Glucose Level 170 Calcium Level 7.7 L Test 08/28/17 05:00 08/28/17 05:16 08/28/17 08:17 08/28/17 08:43 Blood Gas Specimen Source Blood arterial Arterial Blood Date Drawn 08/28/2017 4:50:34 AM Arterial Blood pH (Temp corrected) 7.424 Arterial Blood pCO2 (Temp correct) 40.1 Arterial Blood pO2 (Temp corrected) 90.0 Arterial Blood HCO3 25.7 Arterial Blood Base Excess 1.2 Arterial Blood Oxygen Saturation 97.0 Harsha Test ACCEPTAB Arterial Blood Gas Puncture Site Right Radial Arterial Blood Carboxyhemoglobin 0.6 Arterial Blood Methemoglobin 0.2 Blood Gas A-a O2 Differential 221.4 H Oxyhemoglobin Percent 96.2 Total Hemoglobin 8.3 L Blood Gas Temperature 37.0 Blood Gas Respiration Rate 18.0 Blood Gas Actual Respiration Rate 21 Blood Gas Modality VENT - AC FiO2 50.0 Blood Gas Tidal Volume 500.0 Blood Gas Low PEEP Setting 8.0 Blood Gas Notified Whom UP Blood Gas Notified Time 08/28/2017 5:01:50 AM Bedside Glucose 177 194 Hemoglobin 7.4 L Hematocrit 24.0 L Test 08/28/17 12:54 Bedside Glucose 131 Medications Medications Current Medications Piperacillin Sod/ Tazobactam Sod (Zosyn 2.25gm/ 50ml (Pmx)) 50 ml @ 100 mls/hr Q8 IVPB Last administered on 08/28/17 14:14; Admin Dose 100 MLS/HR; Start 08/22/17 at 08:30 Diagnostic Test (Pha) (Accu-Chek) 1 ea 02 XX Last administered on 08/27/17 01: 12; Admin Dose 1 EA; Start 08/23/17 at 02:00 Insulin Aspart (Novolog Insulin Pen) NOVOLOG *MILD* ALGORITHM Q4 SC Last administered on 08/28/17 08:45; Admin Dose 2 UNIT; Start 08/22/17 at 17:00 Miscellaneous Information 1 ea NOTE XX ; Start 08/22/17 at 13:30 Glucose (Glutose) 15 gm Q15M PRN PO DECREASED GLUCOSE; Start 08/22/17 at 13:30 Glucose (Glutose) 22.5 gm Q15M PRN PO DECREASED GLUCOSE; Start 08/22/17 at 13: 30 Dextrose (D50w Syringe) 25 ml Q15M PRN IV DECREASED GLUCOSE; Start 08/22/17 at 13:30 Dextrose (D50w Syringe) 50 ml Q15M PRN IV DECREASED GLUCOSE; Start 08/22/17 at 13:30 Glucagon (Glucagen) 1 mg Q15M PRN IM DECREASED GLUCOSE; Start 08/22/17 at 13:30 Glucose (Glutose) 15 gm Q15M PRN BUCCAL DECREASED GLUCOSE; Start 08/22/17 at 13 :30 Sodium Hypochlorite (Dakin'S (Dilute 1/40%)) 1 applic BID IRR Last administered on 08/28/17 08:40; Admin Dose 1 APPLIC; Start 08/23/17 at 09:00 Metoprolol Tartrate (Lopressor) 50 mg BID GTB Last administered on 08/28/17 08 :40; Admin Dose 50 MG; Start 08/24/17 at 21:00 Acetaminophen (Tylenol Tab) 500 mg Q4H PRN PO PAIN AND OR ELEVATED TEMP Last administered on 08/27/17 01:27; Admin Dose 500 MG; Start 08/25/17 at 12:00 Morphine Sulfate (morphine) 2 mg Q4H PRN IV PAIN LEVEL 4-6 Last administered on 08/27/17 06:12; Admin Dose 2 MG; Start 08/25/17 at 12:00 Lisinopril (Zestril) 5 mg DAILY PO Last administered on 08/28/17 08:40; Admin Dose 5 MG; Start 08/27/17 at 14:30 Miscellaneous Information (*Rx Drug Level Order Reminder*) RANDOM VANCOMYCIN LEVEL 1... ONCE ONCE XX ; Start 08/29/17 at 05:00; Stop 08/29/17 at 05:01 Lansoprazole (Prevacid) 30 mg DAILY@06 GTB ; Start 08/29/17 at 06:00 LEILA GARCIA Aug 28, 2017 16:38
[2017-08-29] VITALS (49 sets, daily range): BP systolic 121–161; BP diastolic 52–89; PULSE 77–103; RESP 14–28; Ht 167.6 cm; Wt 100.0 kg
[2017-08-29] MEDS: INSULIN ASPART [NOVOLOG] 3 ML PEN SC SCH ×6 (01:00→21:00)
[2017-08-29] MEDS: ACCU-CHEK XX SCH (02:00)
[2017-08-29] MEDS: LANSOPRAZOLE 30 MG CAP GTB SCH (05:24)
[2017-08-29] MEDS: PIPER-TAZO 2.25 GM (PMX) 50 ML IVPB SCH ×2 (05:24→13:20)
[2017-08-29] MEDS: SODIUM HYPOCHLORITE 1/40% 1L IRRIG IRR SCH ×2 (09:06→21:06)
[2017-08-29] MEDS: METOPROLOL 50 MG TAB GTB SCH ×2 (09:13→21:06)
[2017-08-29] MEDS: LISINOPRIL 5 MG TAB PO SCH (09:13)
--- NOTE | 2017-08-29 09:13 | CONS ---
Date/Time of Note Date/Time of Note DATE: 08/29/17 TIME: 09:11 Assessment/Plan Assessment/Plan Additional Assessment/Plan 1. Sepsis due to PNA 2. Acute on chronic renal failure - with severe metabolic acidosis and acute uremic encephalopathy- pt is anuric, started on HD during this admission 3. AMS due to acute uremic encephalopathy + acute metabolic encephalopathy 3. H/o recent admission to [facility] for [facility] failure 4. H/o chronic resp failure s/p tracheostomy 5. HTN 6. H/o CVA with residual weakness 7.. IDDM 8. 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.,-will wait for pt to be more stable and platelets to stabilize before planning for intermediate HD and permacath,d/w son on phone on 08/25/17 IV abx as per ID will follow up Consultation Date/Type/Reason Admit Date/Time Aug 20, 2017 at 17:03 Initial Consult Date 08/20/17 Type of Consultation: NEPHROLOGY Referring Provider: HUSSEIN ROSE 24 HR Interval Summary Free Text/Dictation Plan for HD today, Hb 7.3, afebrile, BP stable Exam/Review of Systems Vital Signs Vitals Vital Signs Date Time Temp Pulse Resp B/P Pulse Ox O2 Delivery O2 Flow Rate FiO2 08/29/17 08:00 98.6 98 17 138/69 100 Mechanical Ventilator 08/29/17 07:30 50 Intake and Output 08/28/17 08/28/17 08/29/17 15:00 23:00 07:00 Intake Total 500 ml 420 ml 510 ml Output Total 10 ml 0 ml 20 ml Balance 490 ml 420 ml 490 ml Exam Constitutional: non-verbal ENMT: other (+ tracheostomy on ventilator ) Respiratory: congested cough, crackles/rales, diminished breath sounds Cardiovascular: S3, regular rate and rhythm Gastrointestinal: non-tender, soft Musculoskeletal: other (2+ pittign edema ), swelling Neurological: other (non verbal ,lethargic, pt is s/p tracheostomy on ventilator ) Results Result Diagram: 08/29/17 0803 08/29/17 0500 Results 24 hrs Laboratory Tests Test 08/28/17 12:54 08/28/17 17:56 08/28/17 22:15 08/29/17 02:04 Bedside Glucose 131 169 151 163 Test 08/29/17 05:00 08/29/17 05:11 08/29/17 08:03 Sodium Level 141 Potassium Level 3.9 Chloride Level 104 Carbon Dioxide Level 27 Anion Gap 14 Blood Urea Nitrogen 80 H Creatinine 4.32 H Glucose Level 175 Calcium Level 7.9 L Total Bilirubin 0.1 L Direct Bilirubin 0.00 Indirect Bilirubin 0.1 Aspartate Amino Transf (AST/SGOT) 18 Alanine Aminotransferase (ALT/SGPT) 25 Alkaline Phosphatase 106 Total Protein 5.9 L Albumin 2.3 L Globulin 3.60 H Albumin/Globulin Ratio 0.63 Random Vancomycin Level 18.0 Bedside Glucose 182 White Blood Count 6.2 Red Blood Count 2.54 L Hemoglobin 7.3 L Hematocrit 23.9 L Mean Corpuscular Volume 94.1 Mean Corpuscular Hemoglobin 28.7 L Mean Corpuscular Hemoglobin Concent 30.5 L Red Cell Distribution Width 15.8 H Platelet Count 65 #L Mean Platelet Volume 11.8 H Neutrophils % 74.8 Lymphocytes % 17.2 Monocytes % 3.9 Eosinophils % 3.1 Basophils % 0.5 Nucleated Red Blood Cells % 0.0 Neutrophils # 4.6 Lymphocytes # 1.1 Monocytes # 0.2 L Eosinophils # 0.2 Basophils # 0.0 Nucleated Red Blood Cells # 0.0 Medications Medications Current Medications Piperacillin Sod/ Tazobactam Sod (Zosyn 2.25gm/ 50ml (Pmx)) 50 ml @ 100 mls/hr Q8 IVPB Last administered on 08/29/17 05:24; Admin Dose 100 MLS/HR; Start 08/22/17 at 08:30 Diagnostic Test (Pha) (Accu-Chek) 1 ea 02 XX Last administered on 08/27/17 01: 12; Admin Dose 1 EA; Start 08/23/17 at 02:00 Insulin Aspart (Novolog Insulin Pen) NOVOLOG *MILD* ALGORITHM Q4 SC Last administered on 08/29/17 09:09; Admin Dose 2 UNIT; Start 08/22/17 at 17:00 Miscellaneous Information 1 ea NOTE XX ; Start 08/22/17 at 13:30 Glucose (Glutose) 15 gm Q15M PRN PO DECREASED GLUCOSE; Start 08/22/17 at 13:30 Glucose (Glutose) 22.5 gm Q15M PRN PO DECREASED GLUCOSE; Start 08/22/17 at 13: 30 Dextrose (D50w Syringe) 25 ml Q15M PRN IV DECREASED GLUCOSE; Start 08/22/17 at 13:30 Dextrose (D50w Syringe) 50 ml Q15M PRN IV DECREASED GLUCOSE; Start 08/22/17 at 13:30 Glucagon (Glucagen) 1 mg Q15M PRN IM DECREASED GLUCOSE; Start 08/22/17 at 13:30 Glucose (Glutose) 15 gm Q15M PRN BUCCAL DECREASED GLUCOSE; Start 08/22/17 at 13 :30 Sodium Hypochlorite (Dakin'S (Dilute 1/40%)) 1 applic BID IRR Last administered on 08/29/17 09:06; Admin Dose 1 APPLIC; Start 08/23/17 at 09:00 Metoprolol Tartrate (Lopressor) 50 mg BID GTB Last administered on 08/28/17 22 :13; Admin Dose 50 MG; Start 08/24/17 at 21:00 Acetaminophen (Tylenol Tab) 500 mg Q4H PRN PO PAIN AND OR ELEVATED TEMP Last administered on 08/27/17 01:27; Admin Dose 500 MG; Start 08/25/17 at 12:00 Morphine Sulfate (morphine) 2 mg Q4H PRN IV PAIN LEVEL 4-6 Last administered on 08/27/17 06:12; Admin Dose 2 MG; Start 08/25/17 at 12:00 Lisinopril (Zestril) 5 mg DAILY PO Last administered on 08/28/17 08:40; Admin Dose 5 MG; Start 08/27/17 at 14:30 Lansoprazole (Prevacid) 30 mg DAILY@06 GTB Last administered on 08/29/17 05:24 ; Admin Dose 30 MG; Start 08/29/17 at 06:00 LUCILLE CABALLERO MD Aug 29, 2017 09:13
--- NOTE | 2017-08-29 11:43 | CONS ---
Date/Time of Note Date/Time of Note DATE: 08/29/17 TIME: 11:41 Assessment/Plan Assessment/Plan Additional Assessment/Plan Ventilator setting; AC of 18, tidal volume 450, PEEP of 8, 50% FiO2. Chest x-ray was reviewed from today which is showing bilateral pneumonia. Assessment and recommendations; 1. Patient admitted with severe bilateral pneumonia. 2. Chronic respiratory failure due to anoxic brain injury. 3. Anemia and thrombocytopenia. 4. Acute on chronic renal injury. Continue current supportive care. Prognosis is very poor. Consultation Date/Type/Reason Admit Date/Time Aug 20, 2017 at 17:03 Initial Consult Date 08/20/17 Type of Consultation: Pulmonary/critical care Referring Provider: HUSSEIN ROSE 24 HR Interval Summary Free Text/Dictation Patient's condition remains critical. However has remained hemodynamically stable. General exam; elderly male, awake but unresponsive to any commands owing to history of anoxic brain injury. Exam/Review of Systems Vital Signs Vitals Vital Signs Date Time Temp Pulse Resp B/P Pulse Ox O2 Delivery O2 Flow Rate FiO2 08/29/17 11:00 95 21 140/77 100 Mechanical Ventilator 08/29/17 09:10 50 08/29/17 08:00 98.6 Intake and Output 08/28/17 08/28/17 08/29/17 15:00 23:00 07:00 Intake Total 500 ml 420 ml 510 ml Output Total 10 ml 0 ml 20 ml Balance 490 ml 420 ml 490 ml Exam HEENT exam; supple neck, no JVD. No lymphadenopathy. Midline trachea. No thyromegaly. Tracheostomy in place. Patient has multiple carious teeth. Pupils are midsize bilaterally. Chest exam; scattered crackles bilaterally. S1-S2 audible, no murmurs. Regular rhythm. Abdomen exam; soft, no organomegaly. G-tube in place. Bowel sounds audible. Extremity exam; trace edema. ADMINISTRATIVE INTERN exam; patient is awake but unresponsive to any commands. Results Result Diagram: 08/29/17 0803 08/29/17 0500 Results 24 hrs Laboratory Tests Test 08/28/17 12:54 08/28/17 17:56 08/28/17 22:15 08/29/17 02:04 Bedside Glucose 131 169 151 163 Test 08/29/17 05:00 08/29/17 05:11 08/29/17 08:03 08/29/17 09:06 Sodium Level 141 Potassium Level 3.9 Chloride Level 104 Carbon Dioxide Level 27 Anion Gap 14 Blood Urea Nitrogen 80 H Creatinine 4.32 H Glucose Level 175 Calcium Level 7.9 L Total Bilirubin 0.1 L Direct Bilirubin 0.00 Indirect Bilirubin 0.1 Aspartate Amino Transf (AST/SGOT) 18 Alanine Aminotransferase (ALT/SGPT) 25 Alkaline Phosphatase 106 Total Protein 5.9 L Albumin 2.3 L Globulin 3.60 H Albumin/Globulin Ratio 0.63 Random Vancomycin Level 18.0 Bedside Glucose 182 210 White Blood Count 6.2 Red Blood Count 2.54 L Hemoglobin 7.3 L Hematocrit 23.9 L Mean Corpuscular Volume 94.1 Mean Corpuscular Hemoglobin 28.7 L Mean Corpuscular Hemoglobin Concent 30.5 L Red Cell Distribution Width 15.8 H Platelet Count 65 #L Mean Platelet Volume 11.8 H Neutrophils % 74.8 Lymphocytes % 17.2 Monocytes % 3.9 Eosinophils % 3.1 Basophils % 0.5 Nucleated Red Blood Cells % 0.0 Neutrophils # 4.6 Lymphocytes # 1.1 Monocytes # 0.2 L Eosinophils # 0.2 Basophils # 0.0 Nucleated Red Blood Cells # 0.0 Medications Medications Current Medications Piperacillin Sod/ Tazobactam Sod (Zosyn 2.25gm/ 50ml (Pmx)) 50 ml @ 100 mls/hr Q8 IVPB Last administered on 08/29/17 05:24; Admin Dose 100 MLS/HR; Start 08/22/17 at 08:30 Diagnostic Test (Pha) (Accu-Chek) 1 ea 02 XX Last administered on 08/27/17 01: 12; Admin Dose 1 EA; Start 08/23/17 at 02:00 Insulin Aspart (Novolog Insulin Pen) NOVOLOG *MILD* ALGORITHM Q4 SC Last administered on 08/29/17 09:09; Admin Dose 2 UNIT; Start 08/22/17 at 17:00 Miscellaneous Information 1 ea NOTE XX ; Start 08/22/17 at 13:30 Glucose (Glutose) 15 gm Q15M PRN PO DECREASED GLUCOSE; Start 08/22/17 at 13:30 Glucose (Glutose) 22.5 gm Q15M PRN PO DECREASED GLUCOSE; Start 08/22/17 at 13: 30 Dextrose (D50w Syringe) 25 ml Q15M PRN IV DECREASED GLUCOSE; Start 08/22/17 at 13:30 Dextrose (D50w Syringe) 50 ml Q15M PRN IV DECREASED GLUCOSE; Start 08/22/17 at 13:30 Glucagon (Glucagen) 1 mg Q15M PRN IM DECREASED GLUCOSE; Start 08/22/17 at 13:30 Glucose (Glutose) 15 gm Q15M PRN BUCCAL DECREASED GLUCOSE; Start 08/22/17 at 13 :30 Sodium Hypochlorite (Dakin'S (Dilute 1/40%)) 1 applic BID IRR Last administered on 08/29/17 09:06; Admin Dose 1 APPLIC; Start 08/23/17 at 09:00 Metoprolol Tartrate (Lopressor) 50 mg BID GTB Last administered on 08/29/17 09 :13; Admin Dose 50 MG; Start 08/24/17 at 21:00 Acetaminophen (Tylenol Tab) 500 mg Q4H PRN PO PAIN AND OR ELEVATED TEMP Last administered on 08/27/17 01:27; Admin Dose 500 MG; Start 08/25/17 at 12:00 Morphine Sulfate (morphine) 2 mg Q4H PRN IV PAIN LEVEL 4-6 Last administered on 08/27/17 06:12; Admin Dose 2 MG; Start 08/25/17 at 12:00 Lisinopril (Zestril) 5 mg DAILY PO Last administered on 08/29/17 09:13; Admin Dose 5 MG; Start 08/27/17 at 14:30 Lansoprazole 30 mg 30 mg DAILY@06 GTB Last administered on 08/29/17 05:24; Admin Dose 30 MG; Start 08/29/17 at 06:00 Vancomycin HCl/ Sodium Chloride (Vancocin/NS) 150 ml @ 75 mls/hr Q96H IVPB ; Start 08/29/17 at 23:00 ODETTE MCKEON Aug 29, 2017 11:43
--- NOTE | 2017-08-29 12:13 | CONS ---
Date/Time of Note Date/Time of Note DATE: 08/29/17 TIME: 12:05 Assessment/Plan Assessment/Plan Chief Complaint/Hosp Course IMPRESSION: 1. Positive troponin status. Significant in the setting of renal failure-No sig uptrend 2. Abnormal electrocardiogram, nonspecific ST-T abnormalities. 3. Hypertension-well controlled 4. Respiratory failure, chronic. 5. Renal failure, acute on chronic. 6. Dysphagia, status post G-tube. 7. Anemia-ongoing 8. Thrombocytopenia-ongoing 9. Encephalopathy. 10. History of CVA. 11. Diabetes mellitus. 12. Hypokalemia 14. Cardiomyopathy-depressed EF 40% Recc: -Tele -Continue BB/ACEI with slight uptitration to improve SBP control -trend cardiac enzymes -follow volume status with HD for volume removal ongoing today -No ASA given severe anemia and give transfusion as necessary -Continue abx's and f/u cx data Problems: Consultation Date/Type/Reason Admit Date/Time Aug 20, 2017 at 17:03 Initial Consult Date 08/20/17 Type of Consultation: Cardiology Reason for Consultation positive troponin Referring Provider: HUSSEIN ROSE Exam/Review of Systems Vital Signs Vitals Vital Signs Date Time Temp Pulse Resp B/P Pulse Ox O2 Delivery O2 Flow Rate FiO2 08/29/17 11:00 95 21 140/77 100 Mechanical Ventilator 08/29/17 09:10 50 08/29/17 08:00 98.6 Intake and Output 08/28/17 08/28/17 08/29/17 15:00 23:00 07:00 Intake Total 500 ml 420 ml 510 ml Output Total 10 ml 0 ml 20 ml Balance 490 ml 420 ml 490 ml Exam Review of Systems: CONSTITUTIONAL: No fevers, chills. PULMONARY: trached CARDIOVASCULAR: No obvious chest pain/palpitations GASTROINTESTINAL: No nausea/vomiting. GENITOURINARY: No hematuria/dysuria. MUSCULOSKELETAL: No obvious myagias/arthalgias. PSYCHIATRIC: The patient denies depression. NEUROLOGIC: encephalopathic Constitutional: other (encephalopathic) Psych: no complaints Head: normocephalic ENMT: mucosa pink and moist Neck: jvd (9 cm water), supple Respiratory: diminished breath sounds Cardiovascular: regular rate and rhythm Gastrointestinal: non-tender, soft Musculoskeletal: muscle tone Extremities: edema (Bilateral) Neurological: other (No focal deficits) Results Result Diagram: 08/29/17 0803 08/29/17 0500 Results 24 hrs Laboratory Tests Test 08/28/17 12:54 08/28/17 17:56 08/28/17 22:15 08/29/17 02:04 Bedside Glucose 131 169 151 163 Test 08/29/17 05:00 08/29/17 05:11 08/29/17 08:03 08/29/17 09:06 Sodium Level 141 Potassium Level 3.9 Chloride Level 104 Carbon Dioxide Level 27 Anion Gap 14 Blood Urea Nitrogen 80 H Creatinine 4.32 H Glucose Level 175 Calcium Level 7.9 L Total Bilirubin 0.1 L Direct Bilirubin 0.00 Indirect Bilirubin 0.1 Aspartate Amino Transf (AST/SGOT) 18 Alanine Aminotransferase (ALT/SGPT) 25 Alkaline Phosphatase 106 Total Protein 5.9 L Albumin 2.3 L Globulin 3.60 H Albumin/Globulin Ratio 0.63 Random Vancomycin Level 18.0 Bedside Glucose 182 210 White Blood Count 6.2 Red Blood Count 2.54 L Hemoglobin 7.3 L Hematocrit 23.9 L Mean Corpuscular Volume 94.1 Mean Corpuscular Hemoglobin 28.7 L Mean Corpuscular Hemoglobin Concent 30.5 L Red Cell Distribution Width 15.8 H Platelet Count 65 #L Mean Platelet Volume 11.8 H Neutrophils % 74.8 Lymphocytes % 17.2 Monocytes % 3.9 Eosinophils % 3.1 Basophils % 0.5 Nucleated Red Blood Cells % 0.0 Neutrophils # 4.6 Lymphocytes # 1.1 Monocytes # 0.2 L Eosinophils # 0.2 Basophils # 0.0 Nucleated Red Blood Cells # 0.0 Medications Medications Current Medications Piperacillin Sod/ Tazobactam Sod (Zosyn 2.25gm/ 50ml (Pmx)) 50 ml @ 100 mls/hr Q8 IVPB Last administered on 08/29/17 05:24; Admin Dose 100 MLS/HR; Start 08/22/17 at 08:30 Diagnostic Test (Pha) (Accu-Chek) 1 ea 02 XX Last administered on 08/27/17 01: 12; Admin Dose 1 EA; Start 08/23/17 at 02:00 Insulin Aspart (Novolog Insulin Pen) NOVOLOG *MILD* ALGORITHM Q4 SC Last administered on 08/29/17 09:09; Admin Dose 2 UNIT; Start 08/22/17 at 17:00 Miscellaneous Information 1 ea NOTE XX ; Start 08/22/17 at 13:30 Glucose (Glutose) 15 gm Q15M PRN PO DECREASED GLUCOSE; Start 08/22/17 at 13:30 Glucose (Glutose) 22.5 gm Q15M PRN PO DECREASED GLUCOSE; Start 08/22/17 at 13: 30 Dextrose (D50w Syringe) 25 ml Q15M PRN IV DECREASED GLUCOSE; Start 08/22/17 at 13:30 Dextrose (D50w Syringe) 50 ml Q15M PRN IV DECREASED GLUCOSE; Start 08/22/17 at 13:30 Glucagon (Glucagen) 1 mg Q15M PRN IM DECREASED GLUCOSE; Start 08/22/17 at 13:30 Glucose (Glutose) 15 gm Q15M PRN BUCCAL DECREASED GLUCOSE; Start 08/22/17 at 13 :30 Sodium Hypochlorite (Dakin'S (Dilute 1/40%)) 1 applic BID IRR Last administered on 08/29/17 09:06; Admin Dose 1 APPLIC; Start 08/23/17 at 09:00 Metoprolol Tartrate (Lopressor) 50 mg BID GTB Last administered on 08/29/17 09 :13; Admin Dose 50 MG; Start 08/24/17 at 21:00 Acetaminophen (Tylenol Tab) 500 mg Q4H PRN PO PAIN AND OR ELEVATED TEMP Last administered on 08/27/17 01:27; Admin Dose 500 MG; Start 08/25/17 at 12:00 Morphine Sulfate (morphine) 2 mg Q4H PRN IV PAIN LEVEL 4-6 Last administered on 08/27/17 06:12; Admin Dose 2 MG; Start 08/25/17 at 12:00 Lisinopril (Zestril) 5 mg DAILY PO Last administered on 08/29/17 09:13; Admin Dose 5 MG; Start 08/27/17 at 14:30 Lansoprazole 30 mg 30 mg DAILY@06 GTB Last administered on 08/29/17 05:24; Admin Dose 30 MG; Start 08/29/17 at 06:00 Vancomycin HCl/ Sodium Chloride (Vancocin/NS) 150 ml @ 75 mls/hr Q96H IVPB ; Start 08/29/17 at 23:00 BRENTON NORTON Aug 29, 2017 12:13
--- NOTE | 2017-08-29 13:29 | PN ---
Date/Time of Note Date/Time of Note DATE: 08/29/17 TIME: 13:13 Assessment/Plan VTE Prophylaxis VTE Prophylaxis Intervention: SCD's Lines/Catheters IV Catheter Type (from Nrs): PICC Line Central line still needed: Yes Urinary Cath still in place: Yes Reason Cath still needed: urinary retention Assessment/Plan Chief Complaint/Hosp Course Patient is undergoing hemodialysis, status post blood transfusion, continues on ventilatory support with 50% FiO2 with PEEP of 8. Patient tolerates G-tube feeding well will add basal insulin for better glycemic control. Assessment/Plan -Acute on chronic CKD. Continue hemodialysis. Dr. Nieto is following in nephrology consultation. -Ventilator dependent respiratory failure with tracheostomy. -Pulmonary edema versus multifocal pneumonia, continue broad-spectrum antibiotics, Dr Hill is asked to see patient in infection disease consultation -Positive troponin in the setting of renal disease, Dr. Zuniga is following in cardiology consultation -Acute metabolic encephalopathy -Anemia, s/p blood transfusion, f/up on stool for OB, continue to monitor hemoglobin and hematocrit -DM, continue Lantus, NovoLog per sliding scale. -Dysphagia with PEG -Sacral wound Further recommendations based on clinical course. Plan of care discussed with Dr. Chávez. Problems: Exam/Review of Systems Vital Signs Vitals Vital Signs Date Time Temp Pulse Resp B/P Pulse Ox O2 Delivery O2 Flow Rate FiO2 08/29/17 12:58 93 24 100 50 08/29/17 11:00 140/77 Mechanical Ventilator 08/29/17 08:00 98.6 Intake and Output 08/28/17 08/28/17 08/29/17 15:00 23:00 07:00 Intake Total 500 ml 420 ml 510 ml Output Total 10 ml 0 ml 20 ml Balance 490 ml 420 ml 490 ml Exam Constitutional: non-verbal Head: normocephalic Neck: supple Respiratory: diminished breath sounds Cardiovascular: nl pulses Gastrointestinal: non-tender, other (G-tube), soft Extremities: edema Results Result Diagram: 08/29/17 0803 08/29/17 0500 Results 24 hrs Laboratory Tests Test 08/28/17 17:56 08/28/17 22:15 08/29/17 02:04 08/29/17 05:00 Bedside Glucose 169 151 163 Sodium Level 141 Potassium Level 3.9 Chloride Level 104 Carbon Dioxide Level 27 Anion Gap 14 Blood Urea Nitrogen 80 H Creatinine 4.32 H Glucose Level 175 Calcium Level 7.9 L Total Bilirubin 0.1 L Direct Bilirubin 0.00 Indirect Bilirubin 0.1 Aspartate Amino Transf (AST/SGOT) 18 Alanine Aminotransferase (ALT/SGPT) 25 Alkaline Phosphatase 106 Total Protein 5.9 L Albumin 2.3 L Globulin 3.60 H Albumin/Globulin Ratio 0.63 Random Vancomycin Level 18.0 Test 08/29/17 05:11 08/29/17 08:03 08/29/17 09:06 Bedside Glucose 182 210 White Blood Count 6.2 Red Blood Count 2.54 L Hemoglobin 7.3 L Hematocrit 23.9 L Mean Corpuscular Volume 94.1 Mean Corpuscular Hemoglobin 28.7 L Mean Corpuscular Hemoglobin Concent 30.5 L Red Cell Distribution Width 15.8 H Platelet Count 65 #L Mean Platelet Volume 11.8 H Neutrophils % 74.8 Lymphocytes % 17.2 Monocytes % 3.9 Eosinophils % 3.1 Basophils % 0.5 Nucleated Red Blood Cells % 0.0 Neutrophils # 4.6 Lymphocytes # 1.1 Monocytes # 0.2 L Eosinophils # 0.2 Basophils # 0.0 Nucleated Red Blood Cells # 0.0 Medications Medications Current Medications Piperacillin Sod/ Tazobactam Sod (Zosyn 2.25gm/ 50ml (Pmx)) 50 ml @ 100 mls/hr Q8 IVPB Last administered on 08/29/17 05:24; Admin Dose 100 MLS/HR; Start 08/22/17 at 08:30 Diagnostic Test (Pha) (Accu-Chek) 1 ea 02 XX Last administered on 08/27/17 01: 12; Admin Dose 1 EA; Start 08/23/17 at 02:00 Insulin Aspart (Novolog Insulin Pen) NOVOLOG *MILD* ALGORITHM Q4 SC Last administered on 08/29/17 09:09; Admin Dose 2 UNIT; Start 08/22/17 at 17:00 Miscellaneous Information 1 ea NOTE XX ; Start 08/22/17 at 13:30 Glucose (Glutose) 15 gm Q15M PRN PO DECREASED GLUCOSE; Start 08/22/17 at 13:30 Glucose (Glutose) 22.5 gm Q15M PRN PO DECREASED GLUCOSE; Start 08/22/17 at 13: 30 Dextrose (D50w Syringe) 25 ml Q15M PRN IV DECREASED GLUCOSE; Start 08/22/17 at 13:30 Dextrose (D50w Syringe) 50 ml Q15M PRN IV DECREASED GLUCOSE; Start 08/22/17 at 13:30 Glucagon (Glucagen) 1 mg Q15M PRN IM DECREASED GLUCOSE; Start 08/22/17 at 13:30 Glucose (Glutose) 15 gm Q15M PRN BUCCAL DECREASED GLUCOSE; Start 08/22/17 at 13 :30 Sodium Hypochlorite (Dakin'S (Dilute 1/40%)) 1 applic BID IRR Last administered on 08/29/17 09:06; Admin Dose 1 APPLIC; Start 08/23/17 at 09:00 Metoprolol Tartrate (Lopressor) 50 mg BID GTB Last administered on 08/29/17 09 :13; Admin Dose 50 MG; Start 08/24/17 at 21:00 Acetaminophen (Tylenol Tab) 500 mg Q4H PRN PO PAIN AND OR ELEVATED TEMP Last administered on 08/27/17 01:27; Admin Dose 500 MG; Start 08/25/17 at 12:00 Morphine Sulfate (morphine) 2 mg Q4H PRN IV PAIN LEVEL 4-6 Last administered on 08/27/17 06:12; Admin Dose 2 MG; Start 08/25/17 at 12:00 Lansoprazole 30 mg 30 mg DAILY@06 GTB Last administered on 08/29/17 05:24; Admin Dose 30 MG; Start 08/29/17 at 06:00 Vancomycin HCl/ Sodium Chloride (Vancocin/NS) 150 ml @ 75 mls/hr Q96H IVPB ; Start 08/29/17 at 23:00 Lisinopril (Zestril) 10 mg DAILY PO ; Start 08/30/17 at 09:00 ARLETH MCKNIGHT Aug 29, 2017 13:23
[2017-08-29] MEDS ORDERED: TOBRAMYCIN IV PER PHARMACY XX SCH (16:30)
--- NOTE | 2017-08-29 16:57 | CONS ---
DATE OF ADMISSION: 08/20/2017 DATE OF CONSULTATION: 08/29/2017 INFECTIOUS DISEASE CONSULTATION REASON FOR CONSULTATION: Antibiotic management. HISTORY OF PRESENT ILLNESS: Ashanti Rodriguez is an 81-year-old male who was admitted on 08/20 and is currently being seen in the intensive care unit. His past problems include: 1. Renal insufficiency. 2. Adult-onset diabetes mellitus. 3. ALLERGY TO CODEINE. 4. Cerebrovascular accident with left-sided weakness. 5. Hypertension. 6. Congestive heart failure. On admission, his white count was 5.4, H and H was 7.3 and 22.7, platelet count 58. His BUN and cre atinine was 197/7.54. He had a chest x-ray on admission, which showed tracheostomy, extensive bilat eral multifocal pneumonia or pulmonary edema, mild cardiomegaly, atherosclerosis and small bilateral pleural effusions. A chest x-ray on 08/28 showed stable and satisfactory position of the life supp ort lines, patchy infiltrates versus pulmonary edema throughout both lungs, unchanged from previous exam. Microbiology: The patient has a wound on the sacrum which is growing Morganella morganii, P seudomonas aeruginosa and Proteus mirabilis. The Proteus mirabilis is sensitive to tobramycin, gent amicin, also sensitive to cefotaxime, whereas the pseudomonas is sensitive to tobramycin, amikacin a nd gentamicin. The Morganella morganii is sensitive to Bactrim. The patient is currently on vancom ycin and Zosyn. His white count today is 6.2, H and H ____ and 23.9, platelet count of 65,000. BU N and creatinine are 40/4.32. Urine serologies nonreactive for IgM, hepatitis A, negative for HIV a nd hepatitis B and C. Currently the patient has a PICC line. He has a urinary catheter. He has a trach and a PEG. He is being seen by Dr. Michael Nieto for [id number] renal disease, pulmonary edema versus multifoc al pneumonia. The patient currently has a BUN and creatinine of 80/4.3. The patient has sepsis due to pneumonia, [id number] renal failure, started on hemodialysis during this admission. He wi ll be on long-term hemodialysis. We are waiting for patient to be more stable before planning for l [place]-term hemodialysis and Perm-A-Cath. PAST MEDICAL HISTORY: Operations as outlined. FAMILY HISTORY: Noncontributory. SOCIAL HISTORY: Does not smoke, drink or abuse drugs. ALLERGIES: NONE TO PENICILLIN, SULFA OR FOODS. MEDICATIONS: Per chart. REVIEW OF SYSTEMS: Noncontributory. PHYSICAL EXAMINATION: GENERAL: The patient is an elderly-appearing white male who is awake, but noncommunicative, in no a cute distress. He has a trach, PEG, Chun. He has a central line, and he has a PICC line. SKIN: Without generalized rash. HEENT: Within normal limits. NECK: Supple. LYMPH NODES: None palpable. CHEST: Decreased breath sounds at the bases. HEART: Without murmur or gallop. ABDOMEN: Soft, obese, nontender, without organosplenomegaly or masses. He has a G-tube in place. He has a trach in his neck. There is no exudate of either. He has a Fole y catheter. RECTAL AND GENITAL: Deferred. NEUROLOGIC: Left-sided weakness secondary to CVA. IMPRESSION AND PLAN: We should get some sputum for culture at this point. If he is on dialysis, we can put him on tobramycin and have pharmacy dose. I will dictate my findings to Dr. Chávez. Dictated By: SOHAM LOPEZ MD, JD/JAMA Conf#: [id number] DID#: [id number]
[2017-08-29] MEDS ORDERED: TOBRAMYCIN IVPB SCH (18:00)
[2017-08-29] MEDS ORDERED: SOD CHLORIDE 0.9% IVPB SCH (18:00)
[2017-08-29] MEDS: INSULIN GLARGINE [LANtus] 3 ML PEN SC SCH (22:20)
[2017-08-30] VITALS (36 sets, daily range): BP systolic 119–152; BP diastolic 55–77; PULSE 78–97; RESP 9–25
[2017-08-30] MEDS: VANCOMYCIN 750 MG in SOD CHLORIDE 0.9% 150 ML IVPB SCH (00:01)
[2017-08-30] MEDS: INSULIN ASPART [NOVOLOG] 3 ML PEN SC SCH ×6 (01:00→21:00)
[2017-08-30] MEDS: ACCU-CHEK XX SCH (02:00)
[2017-08-30] MEDS: LANSOPRAZOLE 30 MG CAP GTB SCH (06:27)
--- NOTE | 2017-08-30 08:51 | CONS ---
Date/Time of Note Date/Time of Note DATE: 08/30/17 TIME: 08:49 Assessment/Plan Assessment/Plan Additional Assessment/Plan 1. Positive troponin status. Significant in the setting of renal failure-No sig uptrend - no cp now, no intervention planned. 2. Abnormal electrocardiogram, nonspecific ST-T abnormalities.- stable overall. 3. Hypertension- labile - no CP, will allow for now 4. Respiratory failure, chronic - on vent, low PEEP settings. 5. Renal failure, acute on chronic. 6. Dysphagia, status post G-tube. 7. Anemia-ongoing - replace as needed 8. Thrombocytopenia-ongoing 9. Encephalopathy. 10. 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 11. Diabetes mellitus. 12. Hypokalemia 14. Cardiomyopathy-depressed EF 40% Consultation Date/Type/Reason Admit Date/Time Aug 20, 2017 at 17:03 Initial Consult Date 08/20/17 Type of Consultation: Cardiology Referring Provider: HUSSEIN ROSE 24 HR Interval Summary Free Text/Dictation NO acute events - BP in good range - no cP noted now - will monitor clinically. ROS: No fever, no chills, no nausea, no vomiting, no diarrhea/constipation No recent weight changes No chest pain, no PND, no orthopnea No dizziness, blurred vision No thirst, no heat or cold intolerance Exam/Review of Systems Vital Signs Vitals Vital Signs Date Time Temp Pulse Resp B/P Pulse Ox O2 Delivery O2 Flow Rate FiO2 08/30/17 06:00 80 19 134/56 100 Mechanical Ventilator 08/30/17 05:28 50 08/30/17 04:00 98.9 Intake and Output 08/29/17 08/29/17 08/30/17 15:00 23:00 07:00 Intake Total 920 ml 370 ml 440 ml Output Total 3050 ml 15 ml 20 ml Balance -2130 ml 355 ml 420 ml Exam General: WN/WD/NAD, AOx 3 HEENT: Unicetric/atraumatic/EOMI (does not follow commands) NECK: trach Lymph: no lymphadenopathy HEART: regular with no S3, II/ systolic murmur at apex LUNGS: Coarse sounds ABD: soft, NT, ND, +BS : Intact Neuro: non focal SKIN: chronic changes EXT: trace edema Constitutional: alert, oriented, well developed Results Result Diagram: 08/30/170 08/30/17 0400 Results 24 hrs Laboratory Tests Test 08/29/17 09:06 08/29/17 13:19 08/29/17 16:57 08/29/17 21:04 Bedside Glucose 210 162 131 167 Test 08/30/17 04:00 08/30/17 04:32 08/30/17 05:15 White Blood Count 7.5 # Red Blood Count 3.11 #L Hemoglobin 8.8 #L Hematocrit 28.5 L Mean Corpuscular Volume 91.6 Mean Corpuscular Hemoglobin 28.3 L Mean Corpuscular Hemoglobin Concent 30.9 L Red Cell Distribution Width 15.7 H Platelet Count 79 #L Mean Platelet Volume 12.4 H Neutrophils % 76.0 Lymphocytes % 15.5 Monocytes % 4.4 Eosinophils % 3.3 Basophils % 0.4 Nucleated Red Blood Cells % 0.0 Neutrophils # 5.7 Lymphocytes # 1.2 Monocytes # 0.3 Eosinophils # 0.3 Basophils # 0.0 Nucleated Red Blood Cells # 0.0 Sodium Level 141 Potassium Level 3.6 Chloride Level 104 Carbon Dioxide Level 30 Anion Gap 11 Blood Urea Nitrogen 62 H Creatinine 3.57 H Glucose Level 132 # Calcium Level 8.4 Bedside Glucose 118 Lab Scanned Report BLOOD TRANSFUSION Medications Medications Current Medications Diagnostic Test (Pha) (Accu-Chek) 1 ea 02 XX Last administered on 08/27/17 01: 12; Admin Dose 1 EA; Start 08/23/17 at 02:00 Insulin Aspart (Novolog Insulin Pen) NOVOLOG *MILD* ALGORITHM Q4 SC Last administered on 08/29/17 13:28; Admin Dose 1 UNIT; Start 08/22/17 at 17:00 Miscellaneous Information 1 ea NOTE XX ; Start 08/22/17 at 13:30 Glucose (Glutose) 15 gm Q15M PRN PO DECREASED GLUCOSE; Start 08/22/17 at 13:30 Glucose (Glutose) 22.5 gm Q15M PRN PO DECREASED GLUCOSE; Start 08/22/17 at 13: 30 Dextrose (D50w Syringe) 25 ml Q15M PRN IV DECREASED GLUCOSE; Start 08/22/17 at 13:30 Dextrose (D50w Syringe) 50 ml Q15M PRN IV DECREASED GLUCOSE; Start 08/22/17 at 13:30 Glucagon (Glucagen) 1 mg Q15M PRN IM DECREASED GLUCOSE; Start 08/22/17 at 13:30 Glucose (Glutose) 15 gm Q15M PRN BUCCAL DECREASED GLUCOSE; Start 08/22/17 at 13 :30 Sodium Hypochlorite (Dakin'S (Dilute 1/40%)) 1 applic BID IRR Last administered on 08/29/17 21:06; Admin Dose 1 APPLIC; Start 08/23/17 at 09:00 Metoprolol Tartrate (Lopressor) 50 mg BID GTB Last administered on 08/29/17 21 :06; Admin Dose 50 MG; Start 08/24/17 at 21:00 Acetaminophen (Tylenol Tab) 500 mg Q4H PRN PO PAIN AND OR ELEVATED TEMP Last administered on 08/27/17 01:27; Admin Dose 500 MG; Start 08/25/17 at 12:00 Morphine Sulfate (morphine) 2 mg Q4H PRN IV PAIN LEVEL 4-6 Last administered on 08/27/17 06:12; Admin Dose 2 MG; Start 08/25/17 at 12:00 Lansoprazole 30 mg 30 mg DAILY@06 GTB Last administered on 08/30/17 06:27; Admin Dose 30 MG; Start 08/29/17 at 06:00 Vancomycin HCl/ Sodium Chloride (Vancocin/NS) 150 ml @ 75 mls/hr Q96H IVPB Last administered on 08/30/17 00:01; Admin Dose 75 MLS/HR; Start 08/29/17 at 23:00 Lisinopril (Zestril) 10 mg DAILY PO ; Start 08/30/17 at 09:00 Insulin Glargine (Lantus) 15 unit DAILY SC Last administered on 08/29/17 22:20 ; Admin Dose 15 UNIT; Start 08/29/17 at 20:00 Tobramycin (Tobramycin Iv Per Pharmacy) TOBRAMYCIN PER PHARMACY NOTE XX ; Start 08/29/17 at 16:30 ABE SILVA MD Aug 30, 2017 08:51
[2017-08-30] MEDS: LISINOPRIL 10 MG TAB PO SCH (09:09)
[2017-08-30] MEDS: METOPROLOL 50 MG TAB GTB SCH ×2 (09:10→20:59)
[2017-08-30] MEDS: INSULIN GLARGINE [LANtus] 3 ML PEN SC SCH (09:11)
[2017-08-30] MEDS: SODIUM HYPOCHLORITE 1/40% 1L IRRIG IRR SCH ×2 (09:16→20:59)
--- NOTE | 2017-08-30 10:28 | CONS ---
Date/Time of Note Date/Time of Note DATE: 08/30/17 TIME: 10:24 Assessment/Plan Assessment/Plan Additional Assessment/Plan Ventilator setting; AC of 18, tidal volume 450, PEEP of 8, 45% FiO2. Assessment and recommendations; 1. Patient admitted with severe bilateral pneumonia currently on appropriate antibiotic regimen. 2. History of hypertension. 3. History of chronic respiratory failure as well as severe anoxic brain injury. 4. Anemia and thrombocytopenia. Decrease PEEP to 5, titrated down FiO2 to keep O2 saturation around 94%. Obtain follow-up chest x-ray. Prognosis remains poor. Consultation Date/Type/Reason Admit Date/Time Aug 20, 2017 at 17:03 Initial Consult Date 08/20/17 Type of Consultation: Pulmonary/critical care Referring Provider: HUSSEIN ROSE 24 HR Interval Summary Free Text/Dictation Patient's condition remains critical. Remains unresponsive due to anoxic brain injury. Also remains chronically ventilator dependent. General exam; elderly male, on ventilator via tracheostomy. Unresponsive. Currently in no distress. Exam/Review of Systems Vital Signs Vitals Vital Signs Date Time Temp Pulse Resp B/P Pulse Ox O2 Delivery O2 Flow Rate FiO2 08/30/17 08:00 85 08/30/17 06:00 19 134/56 100 Mechanical Ventilator 08/30/17 05:28 50 08/30/17 04:00 98.9 Intake and Output 08/29/17 08/29/17 08/30/17 15:00 23:00 07:00 Intake Total 920 ml 370 ml 440 ml Output Total 3050 ml 15 ml 20 ml Balance -2130 ml 355 ml 420 ml Exam HEENT exam; supple neck, no JVD. No lymphadenopathy. Midline trachea. No thyromegaly. Tracheostomy in place. Pupils are small bilaterally. Chest exam; diminished breath sounds bilaterally. S1-S2 audible, no murmurs. Regular rhythm. Abdomen exam; soft, protuberant. G-tube in place. Bowel sounds audible. No organomegaly. Extremity exam; no peripheral edema. 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 Results Result Diagram: 08/30/17 0400 08/30/17 0400 Results 24 hrs Laboratory Tests Test 08/29/17 13:19 08/29/17 16:57 08/29/17 21:04 08/30/17 04:00 Bedside Glucose 162 131 167 White Blood Count 7.5 # Red Blood Count 3.11 #L Hemoglobin 8.8 #L Hematocrit 28.5 L Mean Corpuscular Volume 91.6 Mean Corpuscular Hemoglobin 28.3 L Mean Corpuscular Hemoglobin Concent 30.9 L Red Cell Distribution Width 15.7 H Platelet Count 79 #L Mean Platelet Volume 12.4 H Neutrophils % 76.0 Lymphocytes % 15.5 Monocytes % 4.4 Eosinophils % 3.3 Basophils % 0.4 Nucleated Red Blood Cells % 0.0 Neutrophils # 5.7 Lymphocytes # 1.2 Monocytes # 0.3 Eosinophils # 0.3 Basophils # 0.0 Nucleated Red Blood Cells # 0.0 Sodium Level 141 Potassium Level 3.6 Chloride Level 104 Carbon Dioxide Level 30 Anion Gap 11 Blood Urea Nitrogen 62 H Creatinine 3.57 H Glucose Level 132 # Calcium Level 8.4 Test 08/30/17 04:32 08/30/17 05:15 08/30/17 08:45 08/30/17 09:08 Bedside Glucose 118 113 Lab Scanned Report BLOOD TRANSFUSION Blood Gas Specimen Source Blood arterial Arterial Blood Date Drawn 08/30/2017 9:52:10 AM Arterial Blood pH (Temp corrected) 7.411 Arterial Blood pCO2 (Temp correct) 47.2 H Arterial Blood pO2 (Temp corrected) 52.7 *L Arterial Blood HCO3 29.3 H Arterial Blood Base Excess 4.1 H Arterial Blood Oxygen Saturation 88.5 L Harsha Test ACCEPTAB Arterial Blood Gas Puncture Site Right Radial Arterial Blood Carboxyhemoglobin 0.4 Arterial Blood Methemoglobin 0.4 Blood Gas A-a O2 Differential 178.2 H Oxyhemoglobin Percent 87.8 L Total Hemoglobin 10.0 L Blood Gas Temperature 37.0 Blood Gas Respiration Rate 18.0 Blood Gas Actual Respiration Rate 19 Blood Gas Modality VENT - AC FiO2 40.0 Blood Gas Tidal Volume 450.0 Blood Gas Low PEEP Setting 5.0 Blood Gas Critical Value Read Back JAZMIN FERNANDEZ Blood Gas Notified Whom TAYLOR FAUST Blood Gas Notified Time 08/30/2017 10:01:54 AM Medications Medications Current Medications Diagnostic Test (Pha) (Accu-Chek) 1 ea 02 XX Last administered on 08/27/17t 01: 12; Admin Dose 1 EA; Start 08/23/17 at 02:00 Insulin Aspart (Novolog Insulin Pen) NOVOLOG *MILD* ALGORITHM Q4 SC Last administered on 08/29/17 13:28; Admin Dose 1 UNIT; Start 08/22/17 at 17:00 Miscellaneous Information 1 ea NOTE XX ; Start 08/22/17 at 13:30 Glucose (Glutose) 15 gm Q15M PRN PO DECREASED GLUCOSE; Start 08/22/17 at 13:30 Glucose (Glutose) 22.5 gm Q15M PRN PO DECREASED GLUCOSE; Start 08/22/17 at 13: 30 Dextrose (D50w Syringe) 25 ml Q15M PRN IV DECREASED GLUCOSE; Start 08/22/17 at 13:30 Dextrose (D50w Syringe) 50 ml Q15M PRN IV DECREASED GLUCOSE; Start 08/22/17 at 13:30 Glucagon (Glucagen) 1 mg Q15M PRN IM DECREASED GLUCOSE; Start 08/22/17 at 13:30 Glucose (Glutose) 15 gm Q15M PRN BUCCAL DECREASED GLUCOSE; Start 08/22/17 at 13 :30 Sodium Hypochlorite (Dakin'S (Dilute 1/40%)) 1 applic BID IRR Last administered on 08/30/17 09:16; Admin Dose 1 APPLIC; Start 08/23/17 at 09:00 Metoprolol Tartrate (Lopressor) 50 mg BID GTB Last administered on 08/30/17 09:10; Admin Dose 50 MG; Start 08/24/17 at 21:00 Acetaminophen (Tylenol Tab) 500 mg Q4H PRN PO PAIN AND OR ELEVATED TEMP Last administered on 08/27/17 01:27; Admin Dose 500 MG; Start 08/25/17 at 12:00 Morphine Sulfate (morphine) 2 mg Q4H PRN IV PAIN LEVEL 4-6 Last administered on 08/27/17 06:12; Admin Dose 2 MG; Start 08/25/17 at 12:00 Lansoprazole 30 mg 30 mg DAILY@06 GTB Last administered on 08/30/17 06:27; Admin Dose 30 MG; Start 08/29/17 at 06:00 Vancomycin HCl/ Sodium Chloride (Vancocin/NS) 150 ml @ 75 mls/hr Q96H IVPB Last administered on 08/30/17 00:01; Admin Dose 75 MLS/HR; Start 08/29/17 at 23:00 Lisinopril (Zestril) 10 mg DAILY PO Last administered on 08/30/17 09:09; Admin Dose 10 MG; Start 08/30/17 at 09:00 Insulin Glargine (Lantus) 15 unit DAILY SC Last administered on 08/30/17 09: 11; Admin Dose 15 UNIT; Start 08/29/17 at 20:00 Tobramycin (Tobramycin Iv Per Pharmacy) TOBRAMYCIN PER PHARMACY NOTE XX ; Start 08/29/17 at 16:30 ODETTE MCKEON Aug 30, 2017 10:27
--- NOTE | 2017-08-30 11:33 | PN ---
Date/Time of Note Date/Time of Note DATE: 08/30/17 TIME: 11:27 Assessment/Plan VTE Prophylaxis VTE Prophylaxis Intervention: SCD's Lines/Catheters IV C[facility] Type [facility] PICC Line Central line still needed: Yes Urinary Cath still in place: Yes Reason Cath still needed: urinary retention Assessment/Plan Chief Complaint/Hosp Course Patient undergoing vent setting weaning, still has high Fio2 requirements. Assessment/Plan -Acute on chronic CKD. Continue hemodialysis. Dr. Nieto is following in nephrology consultation. -Ventilator dependent respiratory failure with tracheostomy. -Pulmonary edema versus multifocal pneumonia, continue broad-spectrum antibiotics, Dr Hill is following in infection disease consultation -Positive troponin in the setting of renal disease, Dr. Zuniga is following in cardiology consultation -Acute metabolic encephalopathy -Anemia, s/p blood transfusion, f/up on stool for OB, continue to monitor hemoglobin and hematocrit -DM, continue Lantus, NovoLog per sliding scale. -Dysphagia with PEG -Sacral wound Further recommendations based on clinical course. Plan of care discussed with Dr. Chávez. Problems: Exam/Review of Systems Vital Signs Vitals Vital Signs Date Time Temp Pulse Resp B/P Pulse Ox O2 Delivery O2 Flow Rate FiO2 08/30/17 10:26 50 08/30/17 10:00 82 19 125/69 92 08/30/17 07:00 97.9 Mechanical Ventilator Intake and Output 08/29/17 08/29/17 08/30/17 15:00 23:00 07:00 Intake Total 920 ml 370 ml 480 ml Output Total 3050 ml 15 ml 20 ml Balance -2130 ml 355 ml 460 ml Exam Constitutional: non-verbal Head: normocephalic Neck: supple Respiratory: diminished breath sounds Cardiovascular: nl pulses Gastrointestinal: non-tender, other (G-tube), soft Extremities: edema Results Result Diagram: 08/30/17 0400 08/30/17 0400 Results 24 hrs Laboratory Tests Test 08/29/17 13:19 08/29/17 16:57 08/29/17 21:04 08/30/17 04:00 Bedside Glucose 162 131 167 White Blood Count 7.5 # Red Blood Count 3.11 #L Hemoglobin 8.8 #L Hematocrit 28.5 L Mean Corpuscular Volume 91.6 Mean Corpuscular Hemoglobin 28.3 L Mean Corpuscular Hemoglobin Concent 30.9 L Red Cell Distribution Width 15.7 H Platelet Count 79 #L Mean Platelet Volume 12.4 H Neutrophils % 76.0 Lymphocytes % 15.5 Monocytes % 4.4 Eosinophils % 3.3 Basophils % 0.4 Nucleated Red Blood Cells % 0.0 Neutrophils # 5.7 Lymphocytes # 1.2 Monocytes # 0.3 Eosinophils # 0.3 Basophils # 0.0 Nucleated Red Blood Cells # 0.0 Sodium Level 141 Potassium Level 3.6 Chloride Level 104 Carbon Dioxide Level 30 Anion Gap 11 Blood Urea Nitrogen 62 H Creatinine 3.57 H Glucose Level 132 # Calcium Level 8.4 Test 08/30/17 04:32 08/30/17 05:15 08/30/17 08:45 08/30/17 09:08 Bedside Glucose 118 113 Lab Scanned Report BLOOD TRANSFUSION Blood Gas Specimen Source Blood arterial Arterial Blood Date Drawn 08/30/2017 9:52:10 AM Arterial Blood pH (Temp corrected) 7.411 Arterial Blood pCO2 (Temp correct) 47.2 H Arterial Blood pO2 (Temp corrected) 52.7 *L Arterial Blood HCO3 29.3 H Arterial Blood Base Excess 4.1 H Arterial Blood Oxygen Saturation 88.5 L Harsha Test ACCEPTAB Arterial Blood Gas Puncture Site Right Radial Arterial Blood Carboxyhemoglobin 0.4 Arterial Blood Methemoglobin 0.4 Blood Gas A-a O2 Differential 178.2 H Oxyhemoglobin Percent 87.8 L Total Hemoglobin 10.0 L Blood Gas Temperature 37.0 Blood Gas Respiration Rate 18.0 Blood Gas Actual Respiration Rate 19 Blood Gas Modality VENT - AC FiO2 40.0 Blood Gas Tidal Volume 450.0 Blood Gas Low PEEP Setting 5.0 Blood Gas Critical Value Read Back JAZMIN FERNANDEZ Blood Gas Notified Whom TAYLOR FAUST Blood Gas Notified Time 08/30/2017 10:01:54 AM Test 08/30/17 10:44 Lab Scanned Report REFERENCE LAB Medications Medications Current Medications Diagnostic Test (Pha) (Accu-Chek) 1 ea 02 XX Last administered on 08/27/17 01: 12; Admin Dose 1 EA; Start 08/23/17 at 02:00 Insulin Aspart (Novolog Insulin Pen) NOVOLOG *MILD* ALGORITHM Q4 SC Last administered on 08/29/17 13:28; Admin Dose 1 UNIT; Start 08/22/17 at 17:00 Miscellaneous Information 1 ea NOTE XX ; Start 08/22/17 at 13:30 Glucose (Glutose) 15 gm Q15M PRN PO DECREASED GLUCOSE; Start 08/22/17 at 13:30 Glucose (Glutose) 22.5 gm Q15M PRN PO DECREASED GLUCOSE; Start 08/22/17 at 13: 30 Dextrose (D50w Syringe) 25 ml Q15M PRN IV DECREASED GLUCOSE; Start 08/22/17 at 13:30 Dextrose (D50w Syringe) 50 ml Q15M PRN IV DECREASED GLUCOSE; Start 08/22/17 at 13:30 Glucagon (Glucagen) 1 mg Q15M PRN IM DECREASED GLUCOSE; Start 08/22/17 at 13:30 Glucose (Glutose) 15 gm Q15M PRN BUCCAL DECREASED GLUCOSE; Start 08/22/17 at 13 :30 Sodium Hypochlorite (Dakin'S (Dilute 1/40%)) 1 applic BID IRR Last administered on 08/30/17 09:16; Admin Dose 1 APPLIC; Start 08/23/17 at 09:00 Metoprolol Tartrate (Lopressor) 50 mg BID GTB Last administered on 08/30/17 09:10; Admin Dose 50 MG; Start 08/24/17 at 21:00 Acetaminophen (Tylenol Tab) 500 mg Q4H PRN PO PAIN AND OR ELEVATED TEMP Last administered on 08/27/17 01:27; Admin Dose 500 MG; Start 08/25/17 at 12:00 Morphine Sulfate (morphine) 2 mg Q4H PRN IV PAIN LEVEL 4-6 Last administered on 08/27/17 06:12; Admin Dose 2 MG; Start 08/25/17 at 12:00 Lansoprazole 30 mg 30 mg DAILY@06 GTB Last administered on 08/30/17 06:27; Admin Dose 30 MG; Start 08/29/17 at 06:00 Vancomycin HCl/ Sodium Chloride (Vancocin/NS) 150 ml @ 75 mls/hr Q96H IVPB Last administered on 08/30/17 00:01; Admin Dose 75 MLS/HR; Start 08/29/17 at 23:00 Lisinopril (Zestril) 10 mg DAILY PO Last administered on 08/30/17 09:09; Admin Dose 10 MG; Start 10/10/17 at 09:00 Insulin Glargine (Lantus) 15 unit DAILY SC Last administered on 08/30/17t 09: 11; Admin Dose 15 UNIT; Start 08/29/17 at 20:00 Tobramycin (Tobramycin Iv Per Pharmacy) TOBRAMYCIN PER PHARMACY NOTE XX ; Start 08/29/17 at 16:30 ARLETH MCKNIGHT Aug 30, 2017 11:33
--- NOTE | 2017-08-30 15:04 | PN ---
DATE: 08/30/2017 SUBJECTIVE: No acute changes. The patient is lethargic, lying comfortably in bed. VITAL SIGNS: Afebrile. Temperature 97.9, pulse 82, respirations 20, blood pressure 130/60, saturat ion 100 on 50 FIO2. WBC 7.5, H and H 8.8 and 28.5, platelets 79. BUN 62, creatinine 3.57. MICROBIOLOGY: Sacral wound on 08/23/2017 grew Morganella, Pseudomonas aeruginosa and Proteus mirabi lis. Endotracheal aspirate from yesterday growing gram-negative rods. DIAGNOSTICS: Chest x-ray on 08/28/2017 revealed patchy infiltrates versus pulmonary edema, unchange d. INDWELLINGS: Trach, PEG, Chun, left upper extremity PICC line placed on 08/22/2017, right femoral Calos catheter. PHYSICAL EXAMINATION: GENERAL: Fragile chronically ill-appearing elderly man who is in no distress. HEENT: Head atraumatic, normocephalic. Sclerae anicteric. Buccal mucosa dry. NECK: Supple. CHEST: Rise symmetrical. Breath sounds diminished to bases. HEART: S1, S2. ABDOMEN: Soft, bowel tones present. EXTREMITIES: Without cyanosis. Bilateral trace edema. ASSESSMENT: 1. Pneumonia. 2. 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 3. Chronic respiratory failure. 4. Dysphagia. 5. Diabetes. 6. Sacral wound. 7. Encephalopathy. PLAN: The patient remains stable on appropriate antimicrobials which is vancomycin and tobramycin. Continue present care. Follow recommendations of consultants. Dictated By: BISI MARTIN MEDICAL PHYSICIST for SOHAM BURRELL/JAMA Conf#: [id number] DID#: [id number]
--- NOTE | 2017-08-30 15:04 | PN ---
DATE: 08/30/2017 SUBJECTIVE: No acute changes. The patient is lethargic, lying comfortably in bed. VITAL SIGNS: Afebrile. Temperature 97.9, pulse 82, respirations 20, blood pressure 130/60, saturat ion 100 on 50 FIO2. WBC 7.5, H and H 8.8 and 28.5, platelets 79. BUN 62, creatinine 3.57. MICROBIOLOGY: Sacral wound on 08/23/2017 grew Morganella, Pseudomonas aeruginosa and Proteus mirabi lis. Endotracheal aspirate from yesterday growing gram-negative rods. DIAGNOSTICS: Chest x-ray on 08/28/2017 revealed patchy infiltrates versus pulmonary edema, unchange d. INDWELLINGS: Trach, PEG, Chun, left upper extremity PICC line placed on 08/22/2017, right femoral Calos catheter. PHYSICAL EXAMINATION: GENERAL: Fragile chronically ill-appearing elderly man who is in no distress. HEENT: Head atraumatic, normocephalic. Sclerae anicteric. Buccal mucosa dry. NECK: Supple. CHEST: Rise symmetrical. Breath sounds diminished to bases. HEART: S1, S2. ABDOMEN: Soft, bowel tones present. EXTREMITIES: Without cyanosis. Bilateral trace edema. ASSESSMENT: 1. Pneumonia. 2. 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 3. Chronic respiratory failure. 4. Dysphagia. 5. Diabetes. 6. Sacral wound. 7. Encephalopathy. PLAN: The patient remains stable on appropriate antimicrobials which is vancomycin and tobramycin. Continue present care. Follow recommendations of consultants. Dictated By: BISI MARITN [address] RAILWAY LINE INSTALLER for SOHAM BURRELL/JAMA Conf#: [id number] DID#: [id number]
--- NOTE | 2017-08-30 15:04 | PN ---
DATE: 08/30/2017 SUBJECTIVE: No acute changes. The patient is lethargic, lying comfortably in bed. VITAL SIGNS: Afebrile. Temperature 97.9, pulse 82, respirations 20, blood pressure 130/60, saturat ion 100 on 50 FIO2. WBC 7.5, H and H 8.8 and 28.5, platelets 79. BUN 62, creatinine 3.57. MICROBIOLOGY: Sacral wound on 08/23/2017 grew Morganella, Pseudomonas aeruginosa and Proteus mirabi lis. Endotracheal aspirate from yesterday growing gram-negative rods. DIAGNOSTICS: Chest x-ray on 08/28/2017 revealed patchy infiltrates versus pulmonary edema, unchange d. INDWELLINGS: Trach, PEG, Chun, left upper extremity PICC line placed on 08/22/2017, right femoral Calos catheter. PHYSICAL EXAMINATION: GENERAL: Fragile chronically ill-appearing elderly man who is in no distress. HEENT: Head atraumatic, normocephalic. Sclerae anicteric. Buccal mucosa dry. NECK: Supple. CHEST: Rise symmetrical. Breath sounds diminished to bases. HEART: S1, S2. ABDOMEN: Soft, bowel tones present. EXTREMITIES: Without cyanosis. Bilateral trace edema. ASSESSMENT: 1. Pneumonia. 2. 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 3. Chronic respiratory failure. 4. Dysphagia. 5. Diabetes. 6. Sacral wound. 7. Encephalopathy. PLAN: The patient remains stable on appropriate antimicrobials which is vancomycin and tobramycin. Continue present care. Follow recommendations of consultants. Dictated By: BISI MARTIN MEDICARE COORDINATOR for SOHAM BURRELL/JAMA Conf#: [id number] DID#: [id number]
--- NOTE | 2017-08-30 15:14 | CONS ---
Date/Time of Note Date/Time of Note DATE: 08/30/17 TIME: 13:38 Assessment/Plan Assessment/Plan Additional Assessment/Plan 1. Sepsis due to PNA 2. Acute on chronic renal failure - with severe metabolic acidosis and acute uremic encephalopathy- pt is anuric, started on HD during this admission 3. AMS due to acute uremic encephalopathy + acute metabolic encephalopathy 3. H/o recent admission to [place] for renal failure 4. H/o chronic resp failure s/p tracheostomy 5. HTN 6. H/o CVA with residual weakness 7.. IDDM 8. Anemia,severe, anemia of chronic disease, Plan: started on HD during this admission, s/p Hd yesterday with 2 U PRBC< Hb stable , d/c betancourt catheter Hepatitis panel, HIV negative pt will be retirement HD patient.,-will wait for pt to be more stable and platelets to stabilize before planning for [place] agent HD and permacath, IV abx as per ID will follow up Consultation Date/Type/Reason Admit Date/Time Aug 20, 2017 at 17:03 Initial Consult Date 08/20/17 Type of Consultation: NEPHROLOGY Referring Provider: HUSSEIN ROSE 24 HR Interval Summary Free Text/Dictation pt remained in ICU. s/p HD [place], BP stable, afebrile, Exam/Review of Systems Vital Signs Vitals Vital Signs Date Time Temp Pulse Resp B/P Pulse Ox O2 Delivery O2 Flow Rate FiO2 08/30/17 12:00 87 08/30/17 12:00 17 130/60 100 08/30/17 11:20 50 08/30/17 11:00 Mechanical Ventilator 08/30/17 07:00 97.9 Intake and Output 08/29/17 08/29/17 08/30/17 15:00 23:00 07:00 Intake Total 920 ml 370 ml 480 ml Output Total 3050 ml 15 ml 20 ml Balance -2130 ml 355 ml 460 ml Exam Constitutional: non-verbal ENMT: other (+ tracheostomy on ventilator ) Respiratory: congested cough, crackles/rales, diminished breath sounds Cardiovascular: S3, regular rate and rhythm Gastrointestinal: non-tender, soft Musculoskeletal: other (2+ pittign edema ), swelling Neurological: other (non verbal ,lethargic, pt is s/p tracheostomy on ventilator ) Results Result Diagram: 08/30/170 08/30/170 Results 24 hrs Laboratory Tests Test 08/29/17 16:57 08/29/17 21:04 08/30/17 04:00 08/30/17 04:32 Bedside Glucose 131 167 118 White Blood Count 7.5 # Red Blood Count 3.11 #L Hemoglobin 8.8 #L Hematocrit 28.5 L Mean Corpuscular Volume 91.6 Mean Corpuscular Hemoglobin 28.3 L Mean Corpuscular Hemoglobin Concent 30.9 L Red Cell Distribution Width 15.7 H Platelet Count 79 #L Mean Platelet Volume 12.4 H Neutrophils % 76.0 Lymphocytes % 15.5 Monocytes % 4.4 Eosinophils % 3.3 Basophils % 0.4 Nucleated Red Blood Cells % 0.0 Neutrophils # 5.7 Lymphocytes # 1.2 Monocytes # 0.3 Eosinophils # 0.3 Basophils # 0.0 Nucleated Red Blood Cells # 0.0 Sodium Level 141 Potassium Level 3.6 Chloride Level 104 Carbon Dioxide Level 30 Anion Gap 11 Blood Urea Nitrogen 62 H Creatinine 3.57 H Glucose Level 132 # Calcium Level 8.4 Test 08/30/17 05:15 08/30/17 08:45 08/30/17 09:08 08/30/17 10:44 Lab Scanned Report BLOOD TRANSFUSION REFERENCE LAB Blood Gas Specimen Source Blood arterial Arterial Blood Date Drawn 08/30/2017 9:52:10 AM Arterial Blood pH (Temp corrected) 7.411 Arterial Blood pCO2 (Temp correct) 47.2 H Arterial Blood pO2 (Temp corrected) 52.7 *L Arterial Blood HCO3 29.3 H Arterial Blood Base Excess 4.1 H Arterial Blood Oxygen Saturation 88.5 L Harsha Test ACCEPTAB Arterial Blood Gas Puncture Site Right Radial Arterial Blood Carboxyhemoglobin 0.4 Arterial Blood Methemoglobin 0.4 Blood Gas A-a O2 Differential 178.2 H Oxyhemoglobin Percent 87.8 L Total Hemoglobin 10.0 L Blood Gas Temperature 37.0 Blood Gas Respiration Rate 18.0 Blood Gas Actual Respiration Rate 19 Blood Gas Modality VENT - AC FiO2 40.0 Blood Gas Tidal Volume 450.0 Blood Gas Low PEEP Setting 5.0 Blood Gas Critical Value Read Back JAZMIN FERNANDEZ Blood Gas Notified Whom TAYLOR FAUST Blood Gas Notified Time 08/30/2017 10:01:54 AM Bedside Glucose 113 Test 08/30/17 13:03 Bedside Glucose 112 Medications Medications Current Medications Diagnostic Test (Pha) (Accu-Chek) 1 ea 02 XX Last administered on 08/27/17 01: 12; Admin Dose 1 EA; Start 08/23/17 at 02:00 Insulin Aspart (Novolog Insulin Pen) NOVOLOG *MILD* ALGORITHM Q4 SC Last administered on 08/29/17 13:28; Admin Dose 1 UNIT; Start 08/22/17 at 17:00 Miscellaneous Information 1 ea NOTE XX ; Start 08/22/17 at 13:30 Glucose (Glutose) 15 gm Q15M PRN PO DECREASED GLUCOSE; Start 08/22/17 at 13:30 Glucose (Glutose) 22.5 gm Q15M PRN PO DECREASED GLUCOSE; Start 08/22/17 at 13: 30 Dextrose (D50w Syringe) 25 ml Q15M PRN IV DECREASED GLUCOSE; Start 08/22/17 at 13:30 Dextrose (D50w Syringe) 50 ml Q15M PRN IV DECREASED GLUCOSE; Start 08/22/17 at 13:30 Glucagon (Glucagen) 1 mg Q15M PRN IM DECREASED GLUCOSE; Start 08/22/17 at 13:30 Glucose (Glutose) 15 gm Q15M PRN BUCCAL DECREASED GLUCOSE; Start 08/22/17 at 13 :30 Sodium Hypochlorite (Dakin'S (Dilute 1/40%)) 1 applic BID IRR Last administered on 08/30/17 09:16; Admin Dose 1 APPLIC; Start 08/23/17 at 09:00 Metoprolol Tartrate (Lopressor) 50 mg BID GTB Last administered on 08/30/17 09:10; Admin Dose 50 MG; Start 08/24/17 at 21:00 Acetaminophen (Tylenol Tab) 500 mg Q4H PRN PO PAIN AND OR ELEVATED TEMP Last administered on 08/27/17 01:27; Admin Dose 500 MG; Start 08/25/17 at 12:00 Morphine Sulfate (morphine) 2 mg Q4H PRN IV PAIN LEVEL 4-6 Last administered on 08/27/17 06:12; Admin Dose 2 MG; Start 08/25/17 at 12:00 Lansoprazole 30 mg 30 mg DAILY@06 GTB Last administered on 08/30/17 06:27; Admin Dose 30 MG; Start 08/29/17 at 06:00 Vancomycin HCl/ Sodium Chloride (Vancocin/NS) 150 ml @ 75 mls/hr Q96H IVPB Last administered on 08/30/17 00:01; Admin Dose 75 MLS/HR; Start 08/29/17 at 23:00 Lisinopril (Zestril) 10 mg DAILY PO Last administered on 08/30/17 09:09; Admin Dose 10 MG; Start 08/30/17 at 09:00 Insulin Glargine (Lantus) 15 unit DAILY SC Last administered on 08/30/17 09: 11; Admin Dose 15 UNIT; Start 08/29/17 at 20:00 Tobramycin (Tobramycin Iv Per Pharmacy) TOBRAMYCIN PER PHARMACY NOTE XX ; Start 08/29/17 at 16:30 LUCILLE CABALLERO MD Aug 30, 2017 15:14
[2017-08-31] VITALS (41 sets, daily range): BP systolic 116–172; BP diastolic 53–85; PULSE 79–106; RESP 6–28
[2017-08-31] MEDS: INSULIN ASPART [NOVOLOG] 3 ML PEN SC SCH ×5 (01:00→21:00)
[2017-08-31] MEDS: ACCU-CHEK XX SCH (01:33)
[2017-08-31] MEDS: LANSOPRAZOLE 30 MG CAP GTB SCH (05:32)
--- NOTE | 2017-08-31 08:14 | RADRPT ---
PROCEDURE: XR Chest. CLINICAL INDICATION: Shortness of breath. TECHNIQUE: Single frontal view. COMPARISON: 08/28/2017. FINDINGS: The tracheostomy tube and left arm PICC line remain in. There is severe bilateral pulmonary air spac e disease, slightly worse than seen previously. The heart is enlarged. There are moderate bilateral pleural effusions, larger than seen previously. There is no pneumothorax. IMPRESSION: 1. Worse appearance of the lungs and larger bilateral pleural effusions. 2. No other change from 08/28/2017. RPTAT: QQ .Javi Bruno MD, MD Date Time Electronically viewed and signed by .Javi Bruno MD, MD on 08/31/2017 08:13 .R/
[2017-08-31] MEDS: SODIUM HYPOCHLORITE 1/40% 1L IRRIG IRR SCH ×2 (09:40→21:41)
[2017-08-31] MEDS: INSULIN GLARGINE [LANtus] 3 ML PEN SC SCH (09:42)
--- NOTE | 2017-08-31 11:16 | CONS ---
Date/Time of Note Date/Time of Note DATE: 08/31/17 TIME: 11:11 Assessment/Plan Assessment/Plan Additional Assessment/Plan Ventilator setting; AC of 18, tidal volume 450, PEEP of 5, 30% FiO2. Chest x-ray was reviewed from today which is showing diffuse pneumonia and pulmonary edema. Assessment and recommendations; 1. Patient admitted with severe bilateral pneumonia and pulmonary edema. 2. History of severe anoxic brain injury, patient remains chronically ventilator dependent. 3. Chronic renal failure, on hemodialysis. 4. Anemia and thrombocytopenia. 5. Decubitus ulcers growing gram-negative rods. Pseudomonas culture from the wound. Continue supportive care. Patient can be transferred to the telemetry unit. Overall prognosis remains very poor. Consultation Date/Type/Reason Admit Date/Time Aug 20, 2017 at 17:03 Initial Consult Date 08/20/17 Type of Consultation: Pulmonary/critical care Referring Provider: HUSSEIN ROSE 24 HR Interval Summary Free Text/Dictation Patient's condition remains stable. Patient remains essentially unresponsive due to anoxic brain injury. Also remains ventilator dependent. General exam; elderly male, on ventilator via tracheostomy, unresponsive. Currently in no distress. Exam/Review of Systems Vital Signs Vitals Vital Signs Date Time Temp Pulse Resp B/P Pulse Ox O2 Delivery O2 Flow Rate FiO2 08/31/17 10:54 97 08/31/17 10:00 24 155/68 94 08/31/17 09:00 Mechanical Ventilator 08/31/17 08:00 30 08/31/17 07:00 98.3 Intake and Output 08/30/17 08/30/17 08/31/17 15:00 23:00 07:00 Intake Total 320 ml 384 ml 330 ml Output Total 5 ml 0 ml 0 ml Balance 315 ml 384 ml 330 ml Exam HEENT exam; supple neck, tracheostomy in place. Pupils are small bilaterally. Patient has multiple carious teeth. Chest exam; scattered crackles bilaterally. S1-S2 audible, no murmurs. Regular rhythm. Abdomen exam; soft, G-tube in place. Bowel sounds audible. Extremity exam; no peripheral edema. Back examination; dressing applied over sacrum. 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 Results Result Diagram: 08/31/17 0400 08/31/17 0400 Results 24 hrs Laboratory Tests Test 08/30/17 13:03 08/30/17 17:09 08/30/17 21:01 08/31/17 01:21 Bedside Glucose 112 130 136 151 Test 08/31/17 04:00 08/31/17 04:53 08/31/17 05:00 08/31/17 09:37 White Blood Count 6.3 Red Blood Count 3.04 L Hemoglobin 8.6 L Hematocrit 28.2 L Mean Corpuscular Volume 92.8 Mean Corpuscular Hemoglobin 28.3 L Mean Corpuscular Hemoglobin Concent 30.5 L Red Cell Distribution Width 15.5 H Platelet Count 91 L Mean Platelet Volume 11.9 H Neutrophils % 70.7 Lymphocytes % 19.5 Monocytes % 5.7 Eosinophils % 3.2 Basophils % 0.6 Nucleated Red Blood Cells % 0.0 Neutrophils # 4.5 Lymphocytes # 1.2 Monocytes # 0.4 Eosinophils # 0.2 Basophils # 0.0 Nucleated Red Blood Cells # 0.0 Sodium Level 140 Potassium Level 4.0 Chloride Level 104 Carbon Dioxide Level 29 Anion Gap 11 Blood Urea Nitrogen 72 H Creatinine 4.04 H Glucose Level 169 Calcium Level 7.9 L Bedside Glucose 172 187 Blood Gas Specimen Source Blood arterial Arterial Blood Date Drawn 08/31/2017 5:45:44 AM Arterial Blood pH (Temp corrected) 7.399 Arterial Blood pCO2 (Temp correct) 47.9 H Arterial Blood pO2 (Temp corrected) 114.1 H Arterial Blood HCO3 28.9 H Arterial Blood Base Excess 3.5 H Arterial Blood Oxygen Saturation 98.0 Harsha Test ACCEPTAB Arterial Blood Gas Puncture Site Left Radial Arterial Blood Carboxyhemoglobin 0.2 Arterial Blood Methemoglobin 0.2 Blood Gas A-a O2 Differential 188.5 H Oxyhemoglobin Percent 97.6 Total Hemoglobin 10.0 L Blood Gas Temperature 37.0 Blood Gas Respiration Rate 18.0 Blood Gas Actual Respiration Rate 19 Blood Gas Modality VENT - AC FiO2 50.0 Blood Gas Tidal Volume 450.0 Blood Gas Low PEEP Setting 5.0 Blood Gas Inspiratory Pressure 35.0 Blood Gas Notified Whom MG Blood Gas Notified Time 08/31/2017 5:54:44 AM Medications Medications Current Medications Diagnostic Test (Pha) (Accu-Chek) 1 ea 02 XX Last administered on 08/31/17t 01 :33; Admin Dose 1 EA; Start 08/23/17 at 02:00 Miscellaneous Information 1 ea NOTE XX ; Start 08/22/17 at 13:30 Glucose (Glutose) 15 gm Q15M PRN PO DECREASED GLUCOSE; Start 08/22/17 at 13:30 Glucose (Glutose) 22.5 gm Q15M PRN PO DECREASED GLUCOSE; Start 08/22/17 at 13: 30 Dextrose (D50w Syringe) 25 ml Q15M PRN IV DECREASED GLUCOSE; Start 08/22/17 at 13:30 Dextrose (D50w Syringe) 50 ml Q15M PRN IV DECREASED GLUCOSE; Start 08/22/17 at 13:30 Glucagon (Glucagen) 1 mg Q15M PRN IM DECREASED GLUCOSE; Start 08/22/17 at 13:30 Glucose (Glutose) 15 gm Q15M PRN BUCCAL DECREASED GLUCOSE; Start 08/22/17 at 13 :30 Sodium Hypochlorite (Dakin'S (Dilute 1/40%)) 1 applic BID IRR Last administered on 08/31/17 09:40; Admin Dose 1 APPLIC; Start 08/23/17 at 09:00 Metoprolol Tartrate (Lopressor) 50 mg BID GTB Last administered on 08/30/17 20:59; Admin Dose 50 MG; Start 08/24/17 at 21:00 Acetaminophen (Tylenol Tab) 500 mg Q4H PRN PO PAIN AND OR ELEVATED TEMP Last administered on 08/27/17 01:27; Admin Dose 500 MG; Start 08/25/17 at 12:00 Morphine Sulfate (morphine) 2 mg Q4H PRN IV PAIN LEVEL 4-6 Last administered on 08/27/17 06:12; Admin Dose 2 MG; Start 08/25/17 at 12:00 Lansoprazole 30 mg 30 mg DAILY@06 GTB Last administered on 08/31/17 05:32; Admin Dose 30 MG; Start 08/29/17 at 06:00 Vancomycin HCl/ Sodium Chloride (Vancocin/NS) 150 ml @ 75 mls/hr Q96H IVPB Last administered on 08/30/17 00:01; Admin Dose 75 MLS/HR; Start 08/29/17 at 23:00 Lisinopril (Zestril) 10 mg DAILY PO Last administered on 08/30/17 09:09; Admin Dose 10 MG; Start 08/30/17 at 09:00 Insulin Glargine (Lantus) 15 unit DAILY SC Last administered on 08/31/17t 09: 42; Admin Dose 15 UNIT; Start 08/29/17 at 20:00 Tobramycin (Tobramycin Iv Per Pharmacy) TOBRAMYCIN PER PHARMACY NOTE XX ; Start 08/29/17 at 16:30 Insulin Aspart (Novolog Insulin Pen) (Adult SC Insulin - Mild Algorithm)... Q6 SC ; Start 08/31/17 at 12:00 ODETTE MCKEON Aug 31, 2017 11:16
[2017-08-31] MEDS: METOPROLOL 50 MG TAB GTB SCH ×2 (11:33→21:41)
[2017-08-31] MEDS: LISINOPRIL 10 MG TAB PO SCH (11:34)
[2017-08-31] MEDS ORDERED: Insulin NOVOLOG SS MILD Algorithm (NPO/TPN/ENTERAL FEEDS) SC SCH (12:00)
[2017-08-31] MEDS ORDERED: INSULIN ASPART [NOVOLOG] 3 ML PEN SC SCH (12:00)
[2017-08-31] MEDS: TOBRAMYCIN 100 MG in SOD CHLORIDE 0.9% 50 ML IVPB SCH (12:21)
--- NOTE | 2017-08-31 12:39 | PN ---
Date/Time of Note Date/Time of Note DATE: 08/31/17 TIME: 12:35 Assessment/Plan VTE Prophylaxis VTE Prophylaxis Intervention: SCD's Lines/Catheters [facility] tee Urinary Cath still in place: Yes Reason Cath still needed: urinary retention Assessment/Plan Chief Complaint/Hosp Course Patient is undergoing hemodialysis, continue on ventilator support, FiO2 weaned to 30% per RN, pending transfer to telemetry floor. Assessment/Plan -Acute on chronic CKD. Continue hemodialysis. Dr. Nieto is following in nephrology consultation. -Ventilator dependent respiratory failure with tracheostomy. -Pulmonary edema versus multifocal pneumonia, continue broad-spectrum antibiotics, Dr Hill is following in infection disease consultation -Positive troponin in the setting of renal disease, Dr. Zuniga is following in cardiology consultation -Acute metabolic encephalopathy -Anemia, s/p blood transfusion, f/up on stool for OB, continue to monitor hemoglobin and hematocrit -DM, continue Lantus, NovoLog per sliding scale. -Dysphagia with PEG -Sacral wound Further recommendations based on clinical course. Plan of care discussed with Dr. Chávez. Problems: Exam/Review of Systems Vital Signs Vitals Vital Signs Date Time Temp Pulse Resp B/P Pulse Ox O2 Delivery O2 Flow Rate FiO2 08/31/17 11:00 92 19 08/31/17 11:00 135/68 94 Mechanical Ventilator 08/31/17 08:00 30 08/31/17 07:00 98.3 Intake and Output 08/30/17 08/30/17 08/31/17 15:00 23:00 07:00 Intake Total 320 ml 384 ml 330 ml Output Total 5 ml 0 ml 0 ml Balance 315 ml 384 ml 330 ml Exam Constitutional: non-verbal Head: normocephalic Neck: supple Respiratory: diminished breath sounds Cardiovascular: nl pulses Gastrointestinal: non-tender, other (G-tube), soft Extremities: edema Results Result Diagram: 08/31/17 0400 08/31/17 0400 Results 24 hrs Laboratory Tests Test 08/30/17 13:03 08/30/17 17:09 08/30/17 21:01 08/31/17 01:21 Bedside Glucose 112 130 136 151 Test 08/31/17 04:00 08/31/17 04:53 08/31/17 05:00 08/31/17 09:37 White Blood Count 6.3 Red Blood Count 3.04 L Hemoglobin 8.6 L Hematocrit 28.2 L Mean Corpuscular Volume 92.8 Mean Corpuscular Hemoglobin 28.3 L Mean Corpuscular Hemoglobin Concent 30.5 L Red Cell Distribution Width 15.5 H Platelet Count 91 L Mean Platelet Volume 11.9 H Neutrophils % 70.7 Lymphocytes % 19.5 Monocytes % 5.7 Eosinophils % 3.2 Basophils % 0.6 Nucleated Red Blood Cells % 0.0 Neutrophils # 4.5 Lymphocytes # 1.2 Monocytes # 0.4 Eosinophils # 0.2 Basophils # 0.0 Nucleated Red Blood Cells # 0.0 Sodium Level 140 Potassium Level 4.0 Chloride Level 104 Carbon Dioxide Level 29 Anion Gap 11 Blood Urea Nitrogen 72 H Creatinine 4.04 H Glucose Level 169 Calcium Level 7.9 L Bedside Glucose 172 187 Blood Gas Specimen Source Blood arterial Arterial Blood Date Drawn 08/31/2017 5:45:44 AM Arterial Blood pH (Temp corrected) 7.399 Arterial Blood pCO2 (Temp correct) 47.9 H Arterial Blood pO2 (Temp corrected) 114.1 H Arterial Blood HCO3 28.9 H Arterial Blood Base Excess 3.5 H Arterial Blood Oxygen Saturation 98.0 Harsha Test ACCEPTAB Arterial Blood Gas Puncture Site Left Radial Arterial Blood Carboxyhemoglobin 0.2 Arterial Blood Methemoglobin 0.2 Blood Gas A-a O2 Differential 188.5 H Oxyhemoglobin Percent 97.6 Total Hemoglobin 10.0 L Blood Gas Temperature 37.0 Blood Gas Respiration Rate 18.0 Blood Gas Actual Respiration Rate 19 Blood Gas Modality VENT - AC FiO2 50.0 Blood Gas Tidal Volume 450.0 Blood Gas Low PEEP Setting 5.0 Blood Gas Inspiratory Pressure 35.0 Blood Gas Notified Whom MG Blood Gas Notified Time 08/31/2017 5:54:44 AM Test 08/31/17 11:43 Bedside Glucose 171 Medications Medications Current Medications Diagnostic Test (Pha) (Accu-Chek) 1 ea 02 XX Last administered on 08/31/17t 01 :33; Admin Dose 1 EA; Start 08/23/17 at 02:00 Miscellaneous Information 1 ea NOTE XX ; Start 08/22/17 at 13:30 Glucose (Glutose) 15 gm Q15M PRN PO DECREASED GLUCOSE; Start 08/22/17 at 13:30 Glucose (Glutose) 22.5 gm Q15M PRN PO DECREASED GLUCOSE; Start 08/22/17 at 13: 30 Dextrose (D50w Syringe) 25 ml Q15M PRN IV DECREASED GLUCOSE; Start 08/22/17 at 13:30 Dextrose (D50w Syringe) 50 ml Q15M PRN IV DECREASED GLUCOSE; Start 08/22/17 at 13:30 Glucagon (Glucagen) 1 mg Q15M PRN IM DECREASED GLUCOSE; Start 08/22/17 at 13:30 Glucose (Glutose) 15 gm Q15M PRN BUCCAL DECREASED GLUCOSE; Start 08/22/17 at 13 :30 Sodium Hypochlorite (Dakin'S (Dilute 1/40%)) 1 applic BID IRR Last administered on 08/31/17 09:40; Admin Dose 1 APPLIC; Start 08/23/17 at 09:00 Metoprolol Tartrate (Lopressor) 50 mg BID GTB Last administered on 08/31/17 11:33; Admin Dose 50 MG; Start 08/24/17 at 21:00 Acetaminophen (Tylenol Tab) 500 mg Q4H PRN PO PAIN AND OR ELEVATED TEMP Last administered on 08/27/17 01:27; Admin Dose 500 MG; Start 08/25/17 at 12:00 Morphine Sulfate (morphine) 2 mg Q4H PRN IV PAIN LEVEL 4-6 Last administered on 08/27/17 06:12; Admin Dose 2 MG; Start 08/25/17 at 12:00 Lansoprazole 30 mg 30 mg DAILY@06 GTB Last administered on 08/31/17 05:32; Admin Dose 30 MG; Start 08/29/17 at 06:00 Vancomycin HCl/ Sodium Chloride (Vancocin/NS) 150 ml @ 75 mls/hr Q96H IVPB Last administered on 08/30/17 00:01; Admin Dose 75 MLS/HR; Start 08/29/17 at 23:00 Lisinopril (Zestril) 10 mg DAILY PO Last administered on 08/31/17 11:34; Admin Dose 10 MG; Start 08/30/17 at 09:00 Insulin Glargine (Lantus) 15 unit DAILY SC Last administered on 08/31/17 09: 42; Admin Dose 15 UNIT; Start 08/29/17 at 20:00 Tobramycin (Tobramycin Iv Per Pharmacy) TOBRAMYCIN PER PHARMACY NOTE XX ; Start 08/29/17 at 16:30 Insulin Aspart (Novolog Insulin Pen) (Adult SC Insulin - Mild Algorithm)... Q4 SC ; Start 08/31/17 at 16:00 ARLETH MCKNIGHT Aug 31, 2017 12:39
--- NOTE | 2017-08-31 13:19 | CONS ---
Date/Time of Note Date/Time of Note DATE: 08/31/17 TIME: 13:14 Assessment/Plan Assessment/Plan Chief Complaint/Hosp Course IMPRESSION: 1. Positive troponin-in the setting of renal failure-No sig uptrend 2. Abnormal electrocardiogram, nonspecific ST-T abnormalities. 3. Hypertension-well controlled 4. Respiratory failure, chronic. 5. Renal failure, acute on chronic. 6. Dysphagia, status post G-tube. 7. Anemia-ongoing 8. Thrombocytopenia-ongoing 9. Encephalopathy. 10. History of CVA. 11. Diabetes mellitus. 12. Hypokalemia 14. Cardiomyopathy-depressed EF 40% Recc: -Tele -Continue BB/ACEI and follow reasonable BP closely -trend cardiac enzymes -follow volume status with HD for volume removal ongoing today -No ASA given severe anemia/thrombocytopenia and give transfusion as necessary -Continue abx's and f/u cx data Problems: Consultation Date/Type/Reason Admit Date/Time Aug 20, 2017 at 17:03 Initial Consult Date 08/20/17 Type of Consultation: cardiology Reason for Consultation positive troponin Referring Provider: HUSSEIN ROSE Exam/Review of Systems Vital Signs Vitals Vital Signs Date Time Temp Pulse Resp B/P Pulse Ox O2 Delivery O2 Flow Rate FiO2 08/31/17 12:00 98.4 86 17 141/59 96 Mechanical Ventilator Trach Collar 08/31/17 08:00 30 Intake and Output 08/30/17 08/30/17 08/31/17 15:00 23:00 07:00 Intake Total 320 ml 384 ml 330 ml Output Total 5 ml 0 ml 0 ml Balance 315 ml 384 ml 330 ml Exam Review of Systems: CONSTITUTIONAL: No fevers, chills. PULMONARY: trached CARDIOVASCULAR: No obvious chest pain/palpitations GASTROINTESTINAL: No nausea/vomiting. GENITOURINARY: No hematuria/dysuria. MUSCULOSKELETAL: No obvious myagias/arthalgias. PSYCHIATRIC: The patient denies depression. NEUROLOGIC: encephalopathic Constitutional: other (encephalopathic) Psych: no complaints Head: normocephalic ENMT: mucosa pink and moist Neck: other (trached) Cardiovascular: regular rate and rhythm Gastrointestinal: non-tender, soft Musculoskeletal: muscle weakness (generalized), other (contracted) Extremities: edema (Bilateral) Results Result Diagram: 08/31/17 0400 08/31/17 0400 Results 24 hrs Laboratory Tests Test 08/30/17 17:09 08/30/17 21:01 08/31/17 01:21 08/31/17 04:00 Bedside Glucose 130 136 151 White Blood Count 6.3 Red Blood Count 3.04 L Hemoglobin 8.6 L Hematocrit 28.2 L Mean Corpuscular Volume 92.8 Mean Corpuscular Hemoglobin 28.3 L Mean Corpuscular Hemoglobin Concent 30.5 L Red Cell Distribution Width 15.5 H Platelet Count 91 L Mean Platelet Volume 11.9 H Neutrophils % 70.7 Lymphocytes % 19.5 Monocytes % 5.7 Eosinophils % 3.2 Basophils % 0.6 Nucleated Red Blood Cells % 0.0 Neutrophils # 4.5 Lymphocytes # 1.2 Monocytes # 0.4 Eosinophils # 0.2 Basophils # 0.0 Nucleated Red Blood Cells # 0.0 Sodium Level 140 Potassium Level 4.0 Chloride Level 104 Carbon Dioxide Level 29 Anion Gap 11 Blood Urea Nitrogen 72 H Creatinine 4.04 H Glucose Level 169 Calcium Level 7.9 L Test 08/31/17 04:53 08/31/17 05:00 08/31/17 09:37 08/31/17 11:43 Bedside Glucose 172 187 171 Blood Gas Specimen Source Blood arterial Arterial Blood Date Drawn 08/31/2017 5:45:44 AM Arterial Blood pH (Temp corrected) 7.399 Arterial Blood pCO2 (Temp correct) 47.9 H Arterial Blood pO2 (Temp corrected) 114.1 H Arterial Blood HCO3 28.9 H Arterial Blood Base Excess 3.5 H Arterial Blood Oxygen Saturation 98.0 Harsha Test ACCEPTAB Arterial Blood Gas Puncture Site Left Radial Arterial Blood Carboxyhemoglobin 0.2 Arterial Blood Methemoglobin 0.2 Blood Gas A-a O2 Differential 188.5 H Oxyhemoglobin Percent 97.6 Total Hemoglobin 10.0 L Blood Gas Temperature 37.0 Blood Gas Respiration Rate 18.0 Blood Gas Actual Respiration Rate 19 Blood Gas Modality VENT - AC FiO2 50.0 Blood Gas Tidal Volume 450.0 Blood Gas Low PEEP Setting 5.0 Blood Gas Inspiratory Pressure 35.0 Blood Gas Notified Whom MG Blood Gas Notified Time 08/31/2017 5:54:44 AM Medications Medications Current Medications Diagnostic Test (Pha) (Accu-Chek) 1 ea 02 XX Last administered on 08/31/17t 01 :33; Admin Dose 1 EA; Start 08/23/17 at 02:00 Miscellaneous Information 1 ea NOTE XX ; Start 08/22/17 at 13:30 Glucose (Glutose) 15 gm Q15M PRN PO DECREASED GLUCOSE; Start 08/22/17 at 13:30 Glucose (Glutose) 22.5 gm Q15M PRN PO DECREASED GLUCOSE; Start 08/22/17 at 13: 30 Dextrose (D50w Syringe) 25 ml Q15M PRN IV DECREASED GLUCOSE; Start 08/22/17 at 13:30 Dextrose (D50w Syringe) 50 ml Q15M PRN IV DECREASED GLUCOSE; Start 08/22/17 at 13:30 Glucagon (Glucagen) 1 mg Q15M PRN IM DECREASED GLUCOSE; Start 08/22/17 at 13:30 Glucose (Glutose) 15 gm Q15M PRN BUCCAL DECREASED GLUCOSE; Start 08/22/17 at 13 :30 Sodium Hypochlorite (Dakin'S (Dilute 1/40%)) 1 applic BID IRR Last administered on 08/31/17 09:40; Admin Dose 1 APPLIC; Start 08/23/17 at 09:00 Metoprolol Tartrate (Lopressor) 50 mg BID GTB Last administered on 08/31/17 11:33; Admin Dose 50 MG; Start 08/24/17 at 21:00 Acetaminophen (Tylenol Tab) 500 mg Q4H PRN PO PAIN AND OR ELEVATED TEMP Last administered on 08/27/17 01:27; Admin Dose 500 MG; Start 08/25/17 at 12:00 Morphine Sulfate (morphine) 2 mg Q4H PRN IV PAIN LEVEL 4-6 Last administered on 08/27/17 06:12; Admin Dose 2 MG; Start 08/25/17 at 12:00 Lansoprazole 30 mg 30 mg DAILY@06 GTB Last administered on 08/31/17 05:32; Admin Dose 30 MG; Start 08/29/17 at 06:00 Vancomycin HCl/ Sodium Chloride (Vancocin/NS) 150 ml @ 75 mls/hr Q96H IVPB Last administered on 08/30/17 00:01; Admin Dose 75 MLS/HR; Start 08/29/17 at 23:00 Lisinopril (Zestril) 10 mg DAILY PO Last administered on 08/31/17 11:34; Admin Dose 10 MG; Start 08/30/17 at 09:00 Insulin Glargine (Lantus) 15 unit DAILY SC Last administered on 08/31/17t 09: 42; Admin Dose 15 UNIT; Start 08/29/17 at 20:00 Tobramycin (Tobramycin Iv Per Pharmacy) TOBRAMYCIN PER PHARMACY NOTE XX ; Start 08/29/17 at 16:30 Insulin Aspart (Novolog Insulin Pen) (Adult SC Insulin - Mild Algorithm)... Q4 SC ; Start 08/31/17 at 16:00 BRENTON NORTON Aug 31, 2017 13:19
--- NOTE | 2017-08-31 14:46 | PN ---
DATE: 08/31/2017 SUBJECTIVE: No events overnight. No fevers. The patient is lying comfortably in bed, currently in hemodialysis. VITAL SIGNS: Temperature 98.4, pulse 86, respirations 17, blood pressure 141/59, saturation 96% on trach collar. WBC 6.3, H and H 8.6 and 28.2, platelets 91, no shift. BUN 72, creatinine 4.04. MICROBIOLOGY: No new microbiology reports. Blood cultures had been negative. ANTIMICROBIALS: The patient is on IV vancomycin and tobramycin. INDWELLINGS: Trach, PEG, right femoral Calos catheter, left upper extremity PICC line placed on , also, Chun catheter. PHYSICAL EXAMINATION: GENERAL: This is a chronically ill-appearing, elderly man who is obtunded, in no distress. HEENT: Head atraumatic, normocephalic. Sclerae anicteric. Buccal mucosa dry. NECK: Supple. Tracheostomy present. CHEST: Rise symmetrical. Breath sounds diminished to bases. HEART: S1, S2. ABDOMEN: Soft. Bowel tones hypoactive. EXTREMITIES: Bilateral edema. SKIN: With sacral wound ASSESSMENT: 1. 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 2. Healthcare-associated pneumonia. 3. Dysphagia. 4. Sacral wound. 5. Diabetes. 6. Chronic encephalopathy. PLAN: The patient remains stable. He is on appropriate antimicrobials pending transfer to telemetr y unit. Continue local wound care and management as per primary team and consultants. Dictated By: BISI MARTIN SHELL TRIM OPERATOR for SOHAM BURRELL/JAMA Conf#: [id number] DID#: [id number]
--- NOTE | 2017-08-31 14:46 | PN ---
DATE: 08/31/2017 SUBJECTIVE: No events overnight. No fevers. The patient is lying comfortably in bed, currently in hemodialysis. VITAL SIGNS: Temperature 98.4, pulse 86, respirations 17, blood pressure 141/59, saturation 96% on trach collar. WBC 6.3, H and H 8.6 and 28.2, platelets 91, no shift. BUN 72, creatinine 4.04. MICROBIOLOGY: No new microbiology reports. Blood cultures had been negative. ANTIMICROBIALS: The patient is on IV vancomycin and tobramycin. INDWELLINGS: Trach, PEG, right femoral Calos catheter, left upper extremity PICC line placed on , also, Chun catheter. PHYSICAL EXAMINATION: GENERAL: This is a chronically ill-appearing, elderly man who is obtunded, in no distress. HEENT: Head atraumatic, normocephalic. Sclerae anicteric. Buccal mucosa dry. NECK: Supple. Tracheostomy present. CHEST: Rise symmetrical. Breath sounds diminished to bases. HEART: S1, S2. ABDOMEN: Soft. Bowel tones hypoactive. EXTREMITIES: Bilateral edema. SKIN: With sacral wound ASSESSMENT: 1. 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 2. Healthcare-associated pneumonia. 3. Dysphagia. 4. Sacral wound. 5. Diabetes. 6. Chronic encephalopathy. PLAN: The patient remains stable. He is on appropriate antimicrobials pending transfer to telemetr y unit. Continue local wound care and management as per primary team and consultants. Dictated By: BISI MARTIN FACING SLITTER for SOHAM BURRELL/JAMA Conf#: [id number] DID#: [id number]
--- NOTE | 2017-08-31 14:46 | PN ---
DATE: 08/31/2017 SUBJECTIVE: No events overnight. No fevers. The patient is lying comfortably in bed, currently in hemodialysis. VITAL SIGNS: Temperature 98.4, pulse 86, respirations 17, blood pressure 141/59, saturation 96% on trach collar. WBC 6.3, H and H 8.6 and 28.2, platelets 91, no shift. BUN 72, creatinine 4.04. MICROBIOLOGY: No new microbiology reports. Blood cultures had been negative. ANTIMICROBIALS: The patient is on IV vancomycin and tobramycin. INDWELLINGS: Trach, PEG, right femoral Calos catheter, left upper extremity PICC line placed on , also, Chun catheter. PHYSICAL EXAMINATION: GENERAL: This is a chronically ill-appearing, elderly man who is obtunded, in no distress. HEENT: Head atraumatic, normocephalic. Sclerae anicteric. Buccal mucosa dry. NECK: Supple. Tracheostomy present. CHEST: Rise symmetrical. Breath sounds diminished to bases. HEART: S1, S2. ABDOMEN: Soft. Bowel tones hypoactive. EXTREMITIES: Bilateral edema. SKIN: With sacral wound ASSESSMENT: 1. 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 2. Healthcare-associated pneumonia. 3. Dysphagia. 4. Sacral wound. 5. Diabetes. 6. Chronic encephalopathy. PLAN: The patient remains stable. He is on appropriate antimicrobials pending transfer to telemetr y unit. Continue local wound care and management as per primary team and consultants. Dictated By: BISI MARTIN DATA CONVERSION ANALYST for SOHAM BURRELL/JAMA Conf#: [id number] DID#: [id number]
[2017-08-31] MEDS: morphine 2 MG INJ IV PRN (15:03)
--- NOTE | 2017-08-31 18:46 | CONS ---
Date/Time of Note Date/Time of Note DATE: 08/31/17 TIME: 18:45 Assessment/Plan Assessment/Plan Additional Assessment/Plan 1. Sepsis due to PNA 2. Acute on chronic renal failure - with severe metabolic acidosis and acute uremic encephalopathy- pt is anuric, started on HD during this admission 3. AMS due to acute uremic encephalopathy + acute metabolic encephalopathy 3. H/o recent admission to [facility] for renal failure 4. H/o chronic resp failure s/p tracheostomy 5. HTN 6. H/o CVA with residual weakness 7.. IDDM 8. 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 HD and permacath, IV abx as per ID will follow up Consultation Date/Type/Reason Admit Date/Time Aug 20, 2017 at 17:03 Initial Consult Date 08/20/17 Type of Consultation: NEPHROLOGY Referring Provider: HUSSEIN ROSE 24 HR Interval Summary Free Text/Dictation Plan for HD today, Exam/Review of Systems Vital Signs Vitals Vital Signs Date Time Temp Pulse Resp B/P Pulse Ox O2 Delivery O2 Flow Rate FiO2 08/31/17 18:00 92 20 134/60 94 Mechanical Ventilator 08/31/17 17:00 30 08/31/17 12:00 98.4 Intake and Output 08/30/17 08/30/17 08/31/17 15:00 23:00 07:00 Intake Total 320 ml 384 ml 330 ml Output Total 5 ml 0 ml 0 ml Balance 315 ml 384 ml 330 ml Exam Constitutional: non-verbal ENMT: other (+ tracheostomy on ventilator ) Respiratory: congested cough, crackles/rales, diminished breath sounds Cardiovascular: S3, regular rate and rhythm Gastrointestinal: non-tender, soft Musculoskeletal: other (2+ pittign edema ), swelling Neurological: other (non verbal ,lethargic, pt is s/p tracheostomy on ventilator ) Results Result Diagram: 08/31/17 0400 08/31/17 0400 Results 24 hrs Laboratory Tests Test 08/30/17 21:01 08/31/17 01:21 08/31/17 04:00 08/31/17 04:53 Bedside Glucose 136 151 172 White Blood Count 6.3 Red Blood Count 3.04 L Hemoglobin 8.6 L Hematocrit 28.2 L Mean Corpuscular Volume 92.8 Mean Corpuscular Hemoglobin 28.3 L Mean Corpuscular Hemoglobin Concent 30.5 L Red Cell Distribution Width 15.5 H Platelet Count 91 L Mean Platelet Volume 11.9 H Neutrophils % 70.7 Lymphocytes % 19.5 Monocytes % 5.7 Eosinophils % 3.2 Basophils % 0.6 Nucleated Red Blood Cells % 0.0 Neutrophils # 4.5 Lymphocytes # 1.2 Monocytes # 0.4 Eosinophils # 0.2 Basophils # 0.0 Nucleated Red Blood Cells # 0.0 Sodium Level 140 Potassium Level 4.0 Chloride Level 104 Carbon Dioxide Level 29 Anion Gap 11 Blood Urea Nitrogen 72 H Creatinine 4.04 H Glucose Level 169 Calcium Level 7.9 L Test 08/31/17 05:00 08/31/17 09:37 08/31/17 11:43 08/31/17 16:40 Blood Gas Specimen Source Blood arterial Arterial Blood Date Drawn 08/31/2017 5:45:44 AM Arterial Blood pH (Temp corrected) 7.399 Arterial Blood pCO2 (Temp correct) 47.9 H Arterial Blood pO2 (Temp corrected) 114.1 H Arterial Blood HCO3 28.9 H Arterial Blood Base Excess 3.5 H Arterial Blood Oxygen Saturation 98.0 Harsha Test ACCEPTAB Arterial Blood Gas Puncture Site Left Radial Arterial Blood Carboxyhemoglobin 0.2 Arterial Blood Methemoglobin 0.2 Blood Gas A-a O2 Differential 188.5 H Oxyhemoglobin Percent 97.6 Total Hemoglobin 10.0 L Blood Gas Temperature 37.0 Blood Gas Respiration Rate 18.0 Blood Gas Actual Respiration Rate 19 Blood Gas Modality VENT - AC FiO2 50.0 Blood Gas Tidal Volume 450.0 Blood Gas Low PEEP Setting 5.0 Blood Gas Inspiratory Pressure 35.0 Blood Gas Notified Whom MG Blood Gas Notified Time 08/31/2017 5:54:44 AM Bedside Glucose 187 171 116 Medications Medications Current Medications Diagnostic Test (Pha) (Accu-Chek) 1 ea 02 XX Last administered on 08/31/17t 01 :33; Admin Dose 1 EA; Start 08/23/17 at 02:00 Miscellaneous Information 1 ea NOTE XX ; Start 08/22/17 at 13:30 Glucose (Glutose) 15 gm Q15M PRN PO DECREASED GLUCOSE; Start 08/22/17 at 13:30 Glucose (Glutose) 22.5 gm Q15M PRN PO DECREASED GLUCOSE; Start 08/22/17 at 13: 30 Dextrose (D50w Syringe) 25 ml Q15M PRN IV DECREASED GLUCOSE; Start 08/22/17 at 13:30 Dextrose (D50w Syringe) 50 ml Q15M PRN IV DECREASED GLUCOSE; Start 08/22/17 at 13:30 Glucagon (Glucagen) 1 mg Q15M PRN IM DECREASED GLUCOSE; Start 08/22/17 at 13:30 Glucose (Glutose) 15 gm Q15M PRN BUCCAL DECREASED GLUCOSE; Start 08/22/17 at 13 :30 Sodium Hypochlorite (Dakin'S (Dilute 1/40%)) 1 applic BID IRR Last administered on 08/31/17 09:40; Admin Dose 1 APPLIC; Start 08/23/17 at 09:00 Metoprolol Tartrate (Lopressor) 50 mg BID GTB Last administered on 08/31/17 11:33; Admin Dose 50 MG; Start 08/24/17 at 21:00 Acetaminophen (Tylenol Tab) 500 mg Q4H PRN PO PAIN AND OR ELEVATED TEMP Last administered on 08/27/17 01:27; Admin Dose 500 MG; Start 08/25/17 at 12:00 Morphine Sulfate (morphine) 2 mg Q4H PRN IV PAIN LEVEL 4-6 Last administered on 08/31/17 15:03; Admin Dose 2 MG; Start 08/25/17 at 12:00 Lansoprazole 30 mg 30 mg DAILY@06 GTB Last administered on 08/31/17 05:32; Admin Dose 30 MG; Start 08/29/17 at 06:00 Vancomycin HCl/ Sodium Chloride (Vancocin/NS) 150 ml @ 75 mls/hr Q96H IVPB Last administered on 08/30/17 00:01; Admin Dose 75 MLS/HR; Start 08/29/17 at 23:00 Lisinopril (Zestril) 10 mg DAILY PO Last administered on 08/31/17 11:34; Admin Dose 10 MG; Start 08/30/17 at 09:00 Insulin Glargine (Lantus) 15 unit DAILY SC Last administered on 10/11/17at 09: 42; Admin Dose 15 UNIT; Start 08/29/17 at 20:00 Tobramycin (Tobramycin Iv Per Pharmacy) TOBRAMYCIN PER PHARMACY NOTE XX ; Start 08/29/17 at 16:30 Insulin Aspart (Novolog Insulin Pen) (Adult SC Insulin - Mild Algorithm)... Q4 SC ; Start 08/31/17 at 16:00 LUCILLE CABALLERO MD Aug 31, 2017 18:46
[2017-09-01] VITALS (34 sets, daily range): BP systolic 112–172; BP diastolic 51–135; PULSE 75–113; RESP 7–33
[2017-09-01] MEDS: INSULIN ASPART [NOVOLOG] 3 ML PEN SC SCH ×6 (01:00→20:11)
[2017-09-01] MEDS: ACCU-CHEK XX SCH (02:00)
[2017-09-01] MEDS: LANSOPRAZOLE 30 MG CAP GTB SCH (06:46)
[2017-09-01] MEDS: METOPROLOL 50 MG TAB GTB SCH ×2 (09:38→20:09)
[2017-09-01] MEDS: LISINOPRIL 10 MG TAB PO SCH (09:38)
[2017-09-01] MEDS: INSULIN GLARGINE [LANtus] 3 ML PEN SC SCH (09:40)
[2017-09-01] MEDS: SODIUM HYPOCHLORITE 1/40% 1L IRRIG IRR SCH ×2 (10:01→20:09)
--- NOTE | 2017-09-01 12:31 | CONS ---
Date/Time of Note Date/Time of Note DATE: 09/01/17 TIME: 12:28 Assessment/Plan Assessment/Plan Chief Complaint/Hosp Course IMPRESSION: 1. Positive troponin-in the setting of renal failure-No sig uptrend 2. Abnormal electrocardiogram, nonspecific ST-T abnormalities. 3. Hypertension-well controlled 4. Respiratory failure, chronic. 5. Renal failure, acute on chronic. 6. Dysphagia, status post G-tube. 7. Anemia-ongoing 8. Thrombocytopenia-Slowly improving 9. Encephalopathy. 10. History of CVA. 11. Diabetes mellitus. 12. Hypokalemia 14. Cardiomyopathy-depressed EF 40% Recc: -Tele -Continue BB/ACEI and follow reasonable BP closely -trend cardiac enzymes -follow volume status with HD for volume removal ongoing today -No ASA given severe anemia/thrombocytopenia and give transfusion as necessary -Continue abx's and f/u cx data Problems: Consultation Date/Type/Reason Admit Date/Time Aug 20, 2017 at 17:03 Initial Consult Date 08/20/17 Type of Consultation: Cardiology Reason for Consultation positive troponin Referring Provider: HUSSEIN ROSE Exam/Review of Systems Vital Signs Vitals Vital Signs Date Time Temp Pulse Resp B/P Pulse Ox O2 Delivery O2 Flow Rate FiO2 09/01/17 10:00 87 19 147/73 100 Mechanical Ventilator 09/01/17 09:30 40 09/01/17 08:00 98.1 Intake and Output 08/31/17 08/31/17 09/01/17 15:00 23:00 07:00 Intake Total 872.5 ml 320 ml 320 ml Output Total 2700 ml 0 ml 0 ml Balance -1827.5 ml 320 ml 320 ml Exam Review of Systems: CONSTITUTIONAL: No fevers, chills. PULMONARY: No sob CARDIOVASCULAR: No chest pain/palpitations GASTROINTESTINAL: No nausea/vomiting. GENITOURINARY: No hematuria/dysuria. MUSCULOSKELETAL: No myagias/arthalgias. PSYCHIATRIC: The patient denies depression. NEUROLOGIC: No weakness Constitutional: alert Psych: no complaints Head: normocephalic ENMT: mucosa pink and moist Neck: jvd (9 cm water), other (trached), supple Respiratory: diminished breath sounds (at bases/B) Cardiovascular: regular rate and rhythm Gastrointestinal: non-tender, soft Musculoskeletal: muscle tone (normal) Extremities: edema (none) Neurological: other (No rfocal deficits) Results Result Diagram: 09/01/17 0510 09/01/17 0510 Results 24 hrs Laboratory Tests Test 08/31/17 16:40 08/31/17 21:39 09/01/17 05:10 09/01/17 06:28 Bedside Glucose 116 104 156 White Blood Count 6.7 Red Blood Count 3.13 L Hemoglobin 8.8 L Hematocrit 29.1 L Mean Corpuscular Volume 93.0 Mean Corpuscular Hemoglobin 28.1 L Mean Corpuscular Hemoglobin Concent 30.2 L Red Cell Distribution Width 15.3 H Platelet Count 98 L Mean Platelet Volume 12.0 H Neutrophils % 77.0 Lymphocytes % 13.9 L Monocytes % 5.4 Eosinophils % 2.5 Basophils % 0.6 Nucleated Red Blood Cells % 0.0 Neutrophils # 5.2 Lymphocytes # 0.9 Monocytes # 0.4 Eosinophils # 0.2 Basophils # 0.0 Nucleated Red Blood Cells # 0.0 Sodium Level 138 Potassium Level 4.1 Chloride Level 103 Carbon Dioxide Level 30 Anion Gap 9 Blood Urea Nitrogen 60 H Creatinine 3.54 H Glucose Level 145 Calcium Level 8.0 L Test 09/01/17 09:37 Bedside Glucose 164 Medications Medications Current Medications Diagnostic Test (Pha) (Accu-Chek) 1 ea 02 XX Last administered on 08/31/17t 01 :33; Admin Dose 1 EA; Start 08/23/17 at 02:00 Miscellaneous Information 1 ea NOTE XX ; Start 08/22/17 at 13:30 Glucose (Glutose) 15 gm Q15M PRN PO DECREASED GLUCOSE; Start 08/22/17 at 13:30 Glucose (Glutose) 22.5 gm Q15M PRN PO DECREASED GLUCOSE; Start 08/22/17 at 13: 30 Dextrose (D50w Syringe) 25 ml Q15M PRN IV DECREASED GLUCOSE; Start 08/22/17 at 13:30 Dextrose (D50w Syringe) 50 ml Q15M PRN IV DECREASED GLUCOSE; Start 08/22/17 at 13:30 Glucagon (Glucagen) 1 mg Q15M PRN IM DECREASED GLUCOSE; Start 08/22/17 at 13:30 Glucose (Glutose) 15 gm Q15M PRN BUCCAL DECREASED GLUCOSE; Start 08/22/17 at 13 :30 Sodium Hypochlorite (Dakin'S (Dilute 1/40%)) 1 applic BID IRR Last administered on 09/01/17 10:01; Admin Dose 1 APPLIC; Start 08/23/17 at 09:00 Metoprolol Tartrate (Lopressor) 50 mg BID GTB Last administered on 09/01/17 09:38; Admin Dose 50 MG; Start 08/24/17 at 21:00 Acetaminophen (Tylenol Tab) 500 mg Q4H PRN PO PAIN AND OR ELEVATED TEMP Last administered on 08/27/17 01:27; Admin Dose 500 MG; Start 08/25/17 at 12:00 Morphine Sulfate (morphine) 2 mg Q4H PRN IV PAIN LEVEL 4-6 Last administered on 08/31/17 15:03; Admin Dose 2 MG; Start 08/25/17 at 12:00 Lansoprazole 30 mg 30 mg DAILY@06 GTB Last administered on 09/01/17 06:46; Admin Dose 30 MG; Start 08/29/17 at 06:00 Vancomycin HCl/ Sodium Chloride (Vancocin/NS) 150 ml @ 75 mls/hr Q96H IVPB Last administered on 08/30/17 00:01; Admin Dose 75 MLS/HR; Start 08/29/17 at 23:00 Lisinopril (Zestril) 10 mg DAILY PO Last administered on 09/01/17 09:38; Admin Dose 10 MG; Start 08/30/17 at 09:00 Insulin Glargine (Lantus) 15 unit DAILY SC Last administered on 09/01/17 09: 40; Admin Dose 15 UNIT; Start 08/29/17 at 20:00 Tobramycin (Tobramycin Iv Per Pharmacy) TOBRAMYCIN PER PHARMACY NOTE XX ; Start 08/29/17 at 16:30 Insulin Aspart (Novolog Insulin Pen) (Adult SC Insulin - Mild Algorithm)... Q4 SC Last administered on 09/01/17 09:41; Admin Dose 1 UNIT; Start 08/31/17 at 16:00 BRENTON NORTON Sep 01, 2017 12:31
--- NOTE | 2017-09-01 12:37 | CONS ---
Date/Time of Note Date/Time of Note DATE: 09/01/17 TIME: 12:37 Consultation Date/Type/Reason Admit Date/Time Aug 20, 2017 at 17:03 Initial Consult Date 08/20/17 Type of Consultation: pulm/cc Referring Provider: HUSSEIN ROSE 24 HR Interval Summary Free Text/Dictation dictated [id number] Exam/Review of Systems Vital Signs Vitals Vital Signs Date Time Temp Pulse Resp B/P Pulse Ox O2 Delivery O2 Flow Rate FiO2 09/01/17 10:00 87 19 147/73 100 Mechanical Ventilator 09/01/17 09:30 40 09/01/17 08:00 98.1 Intake and Output 08/31/17 08/31/17 09/01/17 15:00 23:00 07:00 Intake Total 872.5 ml 320 ml 320 ml Output Total 2700 ml 0 ml 0 ml Balance -1827.5 ml 320 ml 320 ml Results Result Diagram: 09/01/17 0510 09/01/17 0510 Results 24 hrs Laboratory Tests Test 08/31/17 16:40 08/31/17 21:39 09/01/17 05:10 09/01/17 06:28 Bedside Glucose 116 104 156 White Blood Count 6.7 Red Blood Count 3.13 L Hemoglobin 8.8 L Hematocrit 29.1 L Mean Corpuscular Volume 93.0 Mean Corpuscular Hemoglobin 28.1 L Mean Corpuscular Hemoglobin Concent 30.2 L Red Cell Distribution Width 15.3 H Platelet Count 98 L Mean Platelet Volume 12.0 H Neutrophils % 77.0 Lymphocytes % 13.9 L Monocytes % 5.4 Eosinophils % 2.5 Basophils % 0.6 Nucleated Red Blood Cells % 0.0 Neutrophils # 5.2 Lymphocytes # 0.9 Monocytes # 0.4 Eosinophils # 0.2 Basophils # 0.0 Nucleated Red Blood Cells # 0.0 Sodium Level 138 Potassium Level 4.1 Chloride Level 103 Carbon Dioxide Level 30 Anion Gap 9 Blood Urea Nitrogen 60 H Creatinine 3.54 H Glucose Level 145 Calcium Level 8.0 L Test 09/01/17 09:37 Bedside Glucose 164 Medications Medications Current Medications Diagnostic Test (Pha) (Accu-Chek) 1 ea 02 XX Last administered on 08/31/17t 01 :33; Admin Dose 1 EA; Start 08/23/17 at 02:00 Miscellaneous Information 1 ea NOTE XX ; Start 08/22/17 at 13:30 Glucose (Glutose) 15 gm Q15M PRN PO DECREASED GLUCOSE; Start 08/22/17 at 13:30 Glucose (Glutose) 22.5 gm Q15M PRN PO DECREASED GLUCOSE; Start 08/22/17 at 13: 30 Dextrose (D50w Syringe) 25 ml Q15M PRN IV DECREASED GLUCOSE; Start 08/22/17 at 13:30 Dextrose (D50w Syringe) 50 ml Q15M PRN IV DECREASED GLUCOSE; Start 08/22/17 at 13:30 Glucagon (Glucagen) 1 mg Q15M PRN IM DECREASED GLUCOSE; Start 08/22/17 at 13:30 Glucose (Glutose) 15 gm Q15M PRN BUCCAL DECREASED GLUCOSE; Start 08/22/17 at 13 :30 Sodium Hypochlorite (Dakin'S (Dilute 1/40%)) 1 applic BID IRR Last administered on 09/01/17 10:01; Admin Dose 1 APPLIC; Start 08/23/17 at 09:00 Metoprolol Tartrate (Lopressor) 50 mg BID GTB Last administered on 09/01/17 09:38; Admin Dose 50 MG; Start 08/24/17 at 21:00 Acetaminophen (Tylenol Tab) 500 mg Q4H PRN PO PAIN AND OR ELEVATED TEMP Last administered on 08/27/17 01:27; Admin Dose 500 MG; Start 08/25/17 at 12:00 Morphine Sulfate (morphine) 2 mg Q4H PRN IV PAIN LEVEL 4-6 Last administered on 08/31/17 15:03; Admin Dose 2 MG; Start 08/25/17 at 12:00 Lansoprazole 30 mg 30 mg DAILY@06 GTB Last administered on 09/01/17 06:46; Admin Dose 30 MG; Start 08/29/17 at 06:00 Vancomycin HCl/ Sodium Chloride (Vancocin/NS) 150 ml @ 75 mls/hr Q96H IVPB Last administered on 08/30/17 00:01; Admin Dose 75 MLS/HR; Start 08/29/17 at 23:00 Insulin Glargine (Lantus) 15 unit DAILY SC Last administered on 09/01/17 09: 40; Admin Dose 15 UNIT; Start 08/29/17 at 20:00 Tobramycin (Tobramycin Iv Per Pharmacy) TOBRAMYCIN PER PHARMACY NOTE XX ; Start 08/29/17 at 16:30 Insulin Aspart (Novolog Insulin Pen) (Adult SC Insulin - Mild Algorithm)... Q4 SC Last administered on 09/01/17t 09:41; Admin Dose 1 UNIT; Start 08/31/17 at 16:00 Lisinopril (Zestril) 20 mg DAILY PO ; Start 09/02/17 at 09:00; Status ODETTE PRADO Sep 01, 2017 12:37
--- NOTE | 2017-09-01 14:09 | PN ---
DATE: 09/01/2017 INFECTIOUS DISEASE PROGRESS NOTE SUBJECTIVE: No acute changes. The patient is lying comfortably in bed. No fevers. VITAL SIGNS: Temperature 98.1, pulse 84, respirations 18, blood pressure 141/64, saturation 100% on 40 FIO2. WBC 6.7, H and H 8.8 and 29.1, platelets 98, neutrophils 77. ANTIMICROBIALS: The patient is on IV vancomycin and tobramycin. INDWELLINGS: Trach, PEG, Chun, Calos catheter, right femoral and left upper extremity PICC line. PHYSICAL EXAMINATION: GENERAL: This is a chronically ill-appearing, elderly man in no distress. HEENT: Head atraumatic, normocephalic. Sclerae anicteric. Buccal mucosa dry. NECK: Obese. CHEST: Rise symmetrical. Breath sounds clear, diminished to bases. HEART: S1, S2. ABDOMEN: Soft. Bowel sounds present. EXTREMITIES: With trace edema. ASSESSMENT: 1. Status post septic shock. 2. Acute on chronic respiratory failure, status post sepsis. 3. Healthcare-associated pneumonia. 4. Sacral decubitus. 5. 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 6. Diabetes. 7. Chronic encephalopathy. PLAN: Remains hemodynamically stable, completing antibiotics, pending transfer to telemetry floor. Dictated By: BISI MARTIN WEIGHT CONTROL ENGINEER for SOHAM BURRELL/JAMA Conf#: [id number] DID#: [id number]
--- NOTE | 2017-09-01 14:09 | PN ---
DATE: 09/01/2017 INFECTIOUS DISEASE PROGRESS NOTE SUBJECTIVE: No acute changes. The patient is lying comfortably in bed. No fevers. VITAL SIGNS: Temperature 98.1, pulse 84, respirations 18, blood pressure 141/64, saturation 100% on 40 FIO2. WBC 6.7, H and H 8.8 and 29.1, platelets 98, neutrophils 77. ANTIMICROBIALS: The patient is on IV vancomycin and tobramycin. INDWELLINGS: Trach, PEG, Chun, Calos catheter, right femoral and left upper extremity PICC line. PHYSICAL EXAMINATION: GENERAL: This is a chronically ill-appearing, elderly man in no distress. HEENT: Head atraumatic, normocephalic. Sclerae anicteric. Buccal mucosa dry. NECK: Obese. CHEST: Rise symmetrical. Breath sounds clear, diminished to bases. HEART: S1, S2. ABDOMEN: Soft. Bowel sounds present. EXTREMITIES: With trace edema. ASSESSMENT: 1. Status post septic shock. 2. Acute on chronic respiratory failure, status post sepsis. 3. Healthcare-associated pneumonia. 4. Sacral decubitus. 5. 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 6. Diabetes. 7. Chronic encephalopathy. PLAN: Remains hemodynamically stable, completing antibiotics, pending transfer to telemetry floor. Dictated By: BISI MARTIN DIGITAL PHOTOGRAPHIC PRINTER for SOHAM BURRELL/JAMA Conf#: [id number] DID#: [id number]
--- NOTE | 2017-09-01 14:09 | PN ---
DATE: 09/01/2017 INFECTIOUS DISEASE PROGRESS NOTE SUBJECTIVE: No acute changes. The patient is lying comfortably in bed. No fevers. VITAL SIGNS: Temperature 98.1, pulse 84, respirations 18, blood pressure 141/64, saturation 100% on 40 FIO2. WBC 6.7, H and H 8.8 and 29.1, platelets 98, neutrophils 77. ANTIMICROBIALS: The patient is on IV vancomycin and tobramycin. INDWELLINGS: Trach, PEG, Chun, Calos catheter, right femoral and left upper extremity PICC line. PHYSICAL EXAMINATION: GENERAL: This is a chronically ill-appearing, elderly man in no distress. HEENT: Head atraumatic, normocephalic. Sclerae anicteric. Buccal mucosa dry. NECK: Obese. CHEST: Rise symmetrical. Breath sounds clear, diminished to bases. HEART: S1, S2. ABDOMEN: Soft. Bowel sounds present. EXTREMITIES: With trace edema. ASSESSMENT: 1. Status post septic shock. 2. Acute on chronic respiratory failure, status post sepsis. 3. Healthcare-associated pneumonia. 4. Sacral decubitus. 5. 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 6. Diabetes. 7. Chronic encephalopathy. PLAN: Remains hemodynamically stable, completing antibiotics, pending transfer to telemetry floor. Dictated By: BISI MARTIN TRAVELING PHLEBOTOMIST for SOHAM BURRELL/JAMA Conf#: [id number] DID#: [id number]
--- NOTE | 2017-09-01 14:52 | CONS ---
DATE OF ADMISSION: 08/20/2017 DATE OF CONSULTATION: 09/01/2017 PULMONARY CRITICAL CARE PROGRESS NOTE HISTORY OF PRESENT ILLNESS: The patient's condition remains critical but stable. The patient has c hronic respiratory failure and is chronically ventilator dependent because of underlying anoxic brai n injury. The patient remains awake but unresponsive to any commands. The patient, however, has re mained hemodynamically stable. PHYSICAL EXAMINATION: GENERAL: Elderly male on ventilator via tracheostomy, currently in no distress, awake. VITAL SIGNS: Temperature is 98 degree Fahrenheit, pulse of 88 per minute, respiratory rate of 18 pe r minute, blood pressure 140/72, O2 sat 100%. Patient is currently on AC of 18, tidal volume 450, PEEP of 5 and 40% FIO2. HEENT: Supple neck, no JVD, no lymphadenopathy, midline trachea, no thyromegaly. NECK: Tracheostomy in place. SKIN: The patient has multiple carious teeth. Pupils are small bilaterally. CHEST: Scattered crackles bilaterally. HEART: S1, S2 audible. No murmurs, regular rhythm. ABDOMEN: Soft. Bowel sounds audible, no organomegaly. G-tube in place. EXTREMITIES: No peripheral edema. BACK: Dressing applied over sacrum. NEUROLOGIC: Patient remains awake but unresponsive to any commands. LABORATORY DATA: White count is 6.7, hemoglobin 8.8, platelet count of 98,000. Sodium 138, potassi um 4.1, chloride 103, bicarbonate 30, BUN 60, creatinine 3.54. MEDICATIONS: The patient is currently on: 1. Tobramycin 100 mg IV post-dialysis. 2. Vancomycin 250 mg q.96h 3. Acetaminophen on a p.r.n. basis. 4. Sliding scale insulin. 5. Lantus insulin 15 units daily. 6. Prevacid 50 mg daily. 7. Zestril 20 mg daily. 8. Metoprolol 50 mg b.i.d. 9. Morphine on a p.r.n. basis. 10. Vancomycin intravenously dosed by the pharmacy. ASSESSMENT: 1. Patient admitted for severe bilateral pneumonia as well as decubitus ulcer and pulmonary edema. 2. History of severe anoxic brain injury. The patient remains chronically ventilator dependent. 3. Chronic renal failure on hemodialysis. 4. Anemia and thrombocytopenia. 5. Gram negative organism isolated from decubitus wound. Culture growing Pseudomonas aeruginosa. The patient currently on appropriate antibiotic regimen. RECOMMENDATIONS: Continue current supportive care. The patient was transferred to the telemetry it. Overall, prognosis remains poor. Dictated By: ODETTE BARBA/JAMA Conf#: [id number] DID#: [id number]
[2017-09-01] MEDS: DEXTROSE 50% 50 ML SYRINGE IV PRN (20:15)
--- NOTE | 2017-09-01 20:26 | CONS ---
Date/Time of Note Date/Time of Note DATE: 09/01/17 TIME: 20:25 Assessment/Plan Assessment/Plan Additional Assessment/Plan 1. Sepsis due to PNA 2. Acute on chronic renal failure - with severe metabolic acidosis and acute uremic encephalopathy- pt is anuric, started on HD during this admission 3. AMS due to acute uremic encephalopathy + acute metabolic encephalopathy 3. H/o recent admission to [facility] for renal failure 4. H/o chronic resp failure s/p tracheostomy 5. HTN 6. H/o CVA with residual weakness 7.. IDDM 8. 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.,-will wait for pt to be more stable and platelets to stabilize before planning for intermediate project manager HD and permacath, IV abx as per ID will follow up Consultation Date/Type/Reason Admit Date/Time Aug 20, 2017 at 17:03 Initial Consult Date 08/20/17 Type of Consultation: NEPHROLOGY Referring Provider: HUSSEIN ROSE 24 HR Interval Summary Free Text/Dictation pt remains on ventilator, BP low, no plan for HD today, Exam/Review of Systems Vital Signs Vitals Vital Signs Date Time Temp Pulse Resp B/P Pulse Ox O2 Delivery O2 Flow Rate FiO2 09/01/17 20:15 87 22 99 40 09/01/17 18:00 123/63 Mechanical Ventilator 09/01/17 16:00 98.0 Intake and Output 08/31/17 08/31/17 09/01/17 15:00 23:00 07:00 Intake Total 872.5 ml 320 ml 320 ml Output Total 2700 ml 0 ml 0 ml Balance -1827.5 ml 320 ml 320 ml Results Result Diagram: 09/01/17 0510 09/01/17 0510 Results 24 hrs Laboratory Tests Test 08/31/17 21:39 09/01/17 05:10 09/01/17 06:28 09/01/17 09:37 Bedside Glucose 104 156 164 White Blood Count 6.7 Red Blood Count 3.13 L Hemoglobin 8.8 L Hematocrit 29.1 L Mean Corpuscular Volume 93.0 Mean Corpuscular Hemoglobin 28.1 L Mean Corpuscular Hemoglobin Concent 30.2 L Red Cell Distribution Width 15.3 H Platelet Count 98 L Mean Platelet Volume 12.0 H Neutrophils % 77.0 Lymphocytes % 13.9 L Monocytes % 5.4 Eosinophils % 2.5 Basophils % 0.6 Nucleated Red Blood Cells % 0.0 Neutrophils # 5.2 Lymphocytes # 0.9 Monocytes # 0.4 Eosinophils # 0.2 Basophils # 0.0 Nucleated Red Blood Cells # 0.0 Sodium Level 138 Potassium Level 4.1 Chloride Level 103 Carbon Dioxide Level 30 Anion Gap 9 Blood Urea Nitrogen 60 H Creatinine 3.54 H Glucose Level 145 Calcium Level 8.0 L Test 09/01/17 12:53 09/01/17 16:18 09/01/17 20:10 Bedside Glucose 114 86 67 L Medications Medications Current Medications Diagnostic Test (Pha) (Accu-Chek) 1 ea 02 XX Last administered on 08/31/17 01 :33; Admin Dose 1 EA; Start 08/23/17 at 02:00 Miscellaneous Information 1 ea NOTE XX ; Start 08/22/17 at 13:30 Glucose (Glutose) 15 gm Q15M PRN PO DECREASED GLUCOSE; Start 08/22/17 at 13:30 Glucose (Glutose) 22.5 gm Q15M PRN PO DECREASED GLUCOSE; Start 08/22/17 at 13: 30 Dextrose (D50w Syringe) 25 ml Q15M PRN IV DECREASED GLUCOSE Last administered on 09/01/17 20:15; Admin Dose 25 ML; Start 08/22/17 at 13:30 Dextrose (D50w Syringe) 50 ml Q15M PRN IV DECREASED GLUCOSE; Start 08/22/17 at 13:30 Glucagon (Glucagen) 1 mg Q15M PRN IM DECREASED GLUCOSE; Start 08/22/17 at 13:30 Glucose (Glutose) 15 gm Q15M PRN BUCCAL DECREASED GLUCOSE; Start 08/22/17 at 13 :30 Sodium Hypochlorite (Dakin'S (Dilute 1/40%)) 1 applic BID IRR Last administered on 09/01/17 20:09; Admin Dose 1 APPLIC; Start 08/23/17 at 09:00 Metoprolol Tartrate (Lopressor) 50 mg BID GTB Last administered on 09/01/17 20:09; Admin Dose 50 MG; Start 08/24/17 at 21:00 Acetaminophen (Tylenol Tab) 500 mg Q4H PRN PO PAIN AND OR ELEVATED TEMP Last administered on 08/27/17 01:27; Admin Dose 500 MG; Start 08/25/17 at 12:00 Morphine Sulfate (morphine) 2 mg Q4H PRN IV PAIN LEVEL 4-6 Last administered on 08/31/17 15:03; Admin Dose 2 MG; Start 08/25/17 at 12:00 Lansoprazole 30 mg 30 mg DAILY@06 GTB Last administered on 09/01/17 06:46; Admin Dose 30 MG; Start 08/29/17 at 06:00 Vancomycin HCl/ Sodium Chloride (Vancocin/NS) 150 ml @ 75 mls/hr Q96H IVPB Last administered on 08/30/17 00:01; Admin Dose 75 MLS/HR; Start 08/29/17 at 23:00 Insulin Glargine (Lantus) 15 unit DAILY SC Last administered on 09/01/17 09: 40; Admin Dose 15 UNIT; Start 08/29/17 at 20:00 Tobramycin (Tobramycin Iv Per Pharmacy) TOBRAMYCIN PER PHARMACY NOTE XX ; Start 08/29/17 at 16:30 Insulin Aspart (Novolog Insulin Pen) (Adult SC Insulin - Mild Algorithm)... Q4 SC Last administered on 09/01/17 09:41; Admin Dose 1 UNIT; Start 08/31/17 at 16:00 Lisinopril (Zestril) 20 mg DAILY PO ; Start 09/02/17 at 09:00 LUCILLE CABALLERO MD Sep 01, 2017 20:26
[2017-09-02] VITALS (34 sets, daily range): BP systolic 125–170; BP diastolic 60–93; PULSE 83–138; RESP 16–24
[2017-09-02] MEDS: DEXTROSE 50% 50 ML SYRINGE IV PRN ×2 (00:47→17:42)
[2017-09-02] MEDS: INSULIN ASPART [NOVOLOG] 3 ML PEN SC SCH ×6 (00:54→21:00)
[2017-09-02] MEDS: ACCU-CHEK XX SCH (02:00)
[2017-09-02] MEDS: LANSOPRAZOLE 30 MG CAP GTB SCH (06:54)
[2017-09-02] MEDS: INSULIN GLARGINE [LANtus] 3 ML PEN SC SCH (07:57)
[2017-09-02] MEDS: METOPROLOL 50 MG TAB GTB SCH ×3 (09:00→21:21)
[2017-09-02] MEDS: LISINOPRIL 20 MG TAB PO SCH ×3 (09:00→21:22)
[2017-09-02] MEDS: SODIUM HYPOCHLORITE 1/40% 1L IRRIG IRR SCH (09:31)
--- NOTE | 2017-09-02 13:07 | CONS ---
Date/Time of Note Date/Time of Note DATE: 09/02/17 TIME: 13:04 Assessment/Plan Assessment/Plan Additional Assessment/Plan Ventilator setting; AC of 18, tidal volume 450, PEEP of 5, 35% FiO2. Assessment and recommendations; 1. Patient with a history of chronic respiratory failure and severe anoxic brain injury admitted with severe bilateral pneumonia. Currently on appropriate antibiotic regimen. Continue current supportive care. Prognosis is poor. Consultation Date/Type/Reason Admit Date/Time Aug 20, 2017 at 17:03 Initial Consult Date 08/20/17 Type of Consultation: Pulmonary Referring Provider: HUSSEIN ROSE 24 HR Interval Summary Free Text/Dictation Patient's condition is stable. Has been transferred out of ICU. Has remained hemodynamically stable. Owing to severe anoxic brain injury patient is unresponsive to any commands. General exam; elderly male, on ventilator via tracheostomy. Currently in no distress. Unresponsive. Exam/Review of Systems Vital Signs Vitals Vital Signs Date Time Temp Pulse Resp B/P Pulse Ox O2 Delivery O2 Flow Rate FiO2 09/02/17 12:18 99 09/02/17 12:15 14 09/02/17 11:35 98 40 09/02/17 07:57 98.3 157/74 09/01/17 21:00 Mechanical Ventilator Intake and Output 09/01/17 09/01/17 09/02/17 15:00 23:00 07:00 Intake Total 420 ml 330 ml 430 ml Output Total 0 ml 0 ml Balance 420 ml 330 ml 430 ml Exam HEENT exam; supple neck, tracheostomy in place. Midline trachea. No thyromegaly. No neck masses. Pupils are small bilaterally. Chest exam; diminished breath sounds bilaterally. S1-S2 audible, no murmurs. Abdomen exam; soft, bowel sounds are sluggish. G-tube in place. Extremity exam; no peripheral edema. 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 Results Result Diagram: 09/01/17 0510 09/01/17 0510 Results 24 hrs Laboratory Tests Test 09/01/17 16:18 09/01/17 20:10 09/01/17 20:42 09/02/17 00:38 Bedside Glucose 86 67 L 91 51 L Test 09/02/17 01:00 09/02/17 01:27 09/02/17 06:54 09/02/17 07:53 Bedside Glucose 105 90 127 132 Test 09/02/17 12:47 Bedside Glucose 119 Medications Medications Current Medications Diagnostic Test (Pha) (Accu-Chek) 1 ea 02 XX Last administered on 08/31/17 01 :33; Admin Dose 1 EA; Start 08/23/17 at 02:00 Miscellaneous Information 1 ea NOTE XX ; Start 08/22/17 at 13:30 Glucose (Glutose) 15 gm Q15M PRN PO DECREASED GLUCOSE; Start 08/22/17 at 13:30 Glucose (Glutose) 22.5 gm Q15M PRN PO DECREASED GLUCOSE; Start 08/22/17 at 13: 30 Dextrose (D50w Syringe) 25 ml Q15M PRN IV DECREASED GLUCOSE Last administered on 09/02/17 00:47; Admin Dose 25 ML; Start 08/22/17 at 13:30 Dextrose (D50w Syringe) 50 ml Q15M PRN IV DECREASED GLUCOSE; Start 08/22/17 at 13:30 Glucagon (Glucagen) 1 mg Q15M PRN IM DECREASED GLUCOSE; Start 08/22/17 at 13:30 Glucose (Glutose) 15 gm Q15M PRN BUCCAL DECREASED GLUCOSE; Start 08/22/17 at 13 :30 Sodium Hypochlorite (Dakin'S (Dilute 1/40%)) 1 applic BID IRR Last administered on 09/02/17 09:31; Admin Dose 1 APPLIC; Start 08/23/17 at 09:00 Metoprolol Tartrate (Lopressor) 50 mg BID GTB Last administered on 09/01/17 20:09; Admin Dose 50 MG; Start 08/24/17 at 21:00 Acetaminophen (Tylenol Tab) 500 mg Q4H PRN PO PAIN AND OR ELEVATED TEMP Last administered on 08/27/17 01:27; Admin Dose 500 MG; Start 08/25/17 at 12:00 Morphine Sulfate (morphine) 2 mg Q4H PRN IV PAIN LEVEL 4-6 Last administered on 08/31/17 15:03; Admin Dose 2 MG; Start 08/25/17 at 12:00 Lansoprazole 30 mg 30 mg DAILY@06 GTB Last administered on 09/02/17 06:54; Admin Dose 30 MG; Start 08/29/17 at 06:00 Vancomycin HCl/ Sodium Chloride (Vancocin/NS) 150 ml @ 75 mls/hr Q96H IVPB Last administered on 08/30/17 00:01; Admin Dose 75 MLS/HR; Start 08/29/17 at 23:00 Insulin Glargine (Lantus) 15 unit DAILY SC Last administered on 09/02/17 07: 57; Admin Dose 15 UNIT; Start 08/29/17 at 20:00 Tobramycin (Tobramycin Iv Per Pharmacy) TOBRAMYCIN PER PHARMACY NOTE XX ; Start 08/29/17 at 16:30 Insulin Aspart (Novolog Insulin Pen) (Adult SC Insulin - Mild Algorithm)... Q4 SC Last administered on 09/01/17 09:41; Admin Dose 1 UNIT; Start 08/31/17 at 16:00 Lisinopril (Zestril) 20 mg DAILY PO ; Start 09/02/17 at 09:00 Influenza Virus Vaccine (Fluzone) 0.5 ml ONCE ONCE IM* ; Start 09/03/17 at 09: 00; Stop 09/03/17 at 09:01 ODETTE MCKEON Sep 02, 2017 13:07
--- NOTE | 2017-09-02 13:43 | PN ---
Date/Time of Note Date/Time of Note DATE: 09/02/17 TIME: 13:39 Assessment/Plan VTE Prophylaxis VTE Prophylaxis Intervention: SCD's Lines/Catheters [facility] PICC Line Central line still needed: Yes Urinary Cath still in place: No Assessment/Plan Chief Complaint/Hosp Course Pt is hemodynamically stable, afebrile, on 35% Fio2. CXR tomorrow. Assessment/Plan -Acute on chronic CKD. Continue hemodialysis. Dr. Nieto is following in nephrology consultation. -Ventilator dependent respiratory failure with tracheostomy. -Pulmonary edema versus multifocal pneumonia, continue broad-spectrum antibiotics, Dr Hill is following in infection disease consultation -Positive troponin in the setting of renal disease, Dr. Zuniga is following in cardiology consultation -Acute metabolic encephalopathy -Anemia, s/p blood transfusion, f/up on stool for OB, continue to monitor hemoglobin and hematocrit -DM, continue Lantus, NovoLog per sliding scale. -Dysphagia with PEG -Sacral wound Further recommendations based on clinical course. Plan of care discussed with Dr. Chávez. Problems: Exam/Review of Systems Vital Signs Vitals Vital Signs Date Time Temp Pulse Resp B/P Pulse Ox O2 Delivery O2 Flow Rate FiO2 09/02/17 13:15 92 21 98 35 09/02/17 07:57 98.3 157/74 09/01/17 21:00 Mechanical Ventilator Intake and Output 09/01/17 09/01/17 09/02/17 15:00 23:00 07:00 Intake Total 420 ml 330 ml 430 ml Output Total 0 ml 0 ml Balance 420 ml 330 ml 430 ml Exam Constitutional: non-verbal Head: normocephalic Neck: supple Respiratory: diminished breath sounds Cardiovascular: nl pulses Gastrointestinal: non-tender, other (G-tube), soft Extremities: edema Results Result Diagram: 09/01/17 0510 09/01/17 0510 Results 24 hrs Laboratory Tests Test 09/01/17 16:18 09/01/17 20:10 09/01/17 20:42 09/02/17 00:38 Bedside Glucose 86 67 L 91 51 L Test 09/02/17 01:00 09/02/17 01:27 09/02/17 06:54 09/02/17 07:53 Bedside Glucose 105 90 127 132 Test 09/02/17 12:47 Bedside Glucose 119 Medications Medications Current Medications Diagnostic Test (Pha) (Accu-Chek) 1 ea 02 XX Last administered on 08/31/17 01 :33; Admin Dose 1 EA; Start 08/23/17 at 02:00 Miscellaneous Information 1 ea NOTE XX ; Start 08/22/17 at 13:30 Glucose (Glutose) 15 gm Q15M PRN PO DECREASED GLUCOSE; Start 08/22/17 at 13:30 Glucose (Glutose) 22.5 gm Q15M PRN PO DECREASED GLUCOSE; Start 08/22/17 at 13: 30 Dextrose (D50w Syringe) 25 ml Q15M PRN IV DECREASED GLUCOSE Last administered on 09/02/17 00:47; Admin Dose 25 ML; Start 08/22/17 at 13:30 Dextrose (D50w Syringe) 50 ml Q15M PRN IV DECREASED GLUCOSE; Start 08/22/17 at 13:30 Glucagon (Glucagen) 1 mg Q15M PRN IM DECREASED GLUCOSE; Start 08/22/17 at 13:30 Glucose (Glutose) 15 gm Q15M PRN BUCCAL DECREASED GLUCOSE; Start 08/22/17 at 13 :30 Sodium Hypochlorite (Dakin'S (Dilute 1/40%)) 1 applic BID IRR Last administered on 09/02/17 09:31; Admin Dose 1 APPLIC; Start 08/23/17 at 09:00 Metoprolol Tartrate (Lopressor) 50 mg BID GTB Last administered on 09/01/17 20:09; Admin Dose 50 MG; Start 08/24/17 at 21:00 Acetaminophen (Tylenol Tab) 500 mg Q4H PRN PO PAIN AND OR ELEVATED TEMP Last administered on 08/27/17 01:27; Admin Dose 500 MG; Start 08/25/17 at 12:00 Morphine Sulfate (morphine) 2 mg Q4H PRN IV PAIN LEVEL 4-6 Last administered on 08/31/17 15:03; Admin Dose 2 MG; Start 08/25/17 at 12:00 Lansoprazole 30 mg 30 mg DAILY@06 GTB Last administered on 09/02/17 06:54; Admin Dose 30 MG; Start 08/29/17 at 06:00 Vancomycin HCl/ Sodium Chloride (Vancocin/NS) 150 ml @ 75 mls/hr Q96H IVPB Last administered on 08/30/17 00:01; Admin Dose 75 MLS/HR; Start 08/29/17 at 23:00 Insulin Glargine (Lantus) 15 unit DAILY SC Last administered on 09/02/17 07: 57; Admin Dose 15 UNIT; Start 08/29/17 at 20:00 Tobramycin (Tobramycin Iv Per Pharmacy) TOBRAMYCIN PER PHARMACY NOTE XX ; Start 08/29/17 at 16:30 Insulin Aspart (Novolog Insulin Pen) (Adult SC Insulin - Mild Algorithm)... Q4 SC Last administered on 09/01/17 09:41; Admin Dose 1 UNIT; Start 08/31/17 at 16:00 Lisinopril (Zestril) 20 mg DAILY PO ; Start 09/02/17 at 09:00 Influenza Virus Vaccine (Fluzone) 0.5 ml ONCE ONCE IM* ; Start 09/03/17 at 09: 00; Stop 09/03/17 at 09:01 ARLETH MCKNIGHT Sep 02, 2017 13:42
--- NOTE | 2017-09-02 14:09 | CONS ---
Date/Time of Note Date/Time of Note DATE: 09/02/17 TIME: 14:08 Consult Date/Type/Reason Admit Date/Time Aug 20, 2017 at 17:03 Initial Consult Date 08/20/17 Type of Consultation: id Ordering Provider: HUSSEIN ROSE Objective Vital Signs Date Time Temp Pulse Resp B/P Pulse Ox O2 Delivery O2 Flow Rate FiO2 09/02/17 13:15 92 21 98 40 09/02/17 07:57 98.3 157/74 09/01/17 21:00 Mechanical Ventilator Intake and Output 09/01/17 09/01/17 09/02/17 15:00 23:00 07:00 Intake Total 420 ml 330 ml 430 ml Output Total 0 ml 0 ml Balance 420 ml 330 ml 430 ml Results/Medications Result Diagram: 09/01/17 0510 09/01/17 0510 Results 24 hrs Laboratory Tests Test 09/01/17 16:18 09/01/17 20:10 09/01/17 20:42 09/02/17 00:38 Bedside Glucose 86 67 L 91 51 L Test 09/02/17 01:00 09/02/17 01:27 09/02/17 06:54 09/02/17 07:53 Bedside Glucose 105 90 127 132 Test 09/02/17 12:47 Bedside Glucose 119 Medications Current Medications Diagnostic Test (Pha) (Accu-Chek) 1 ea 02 XX Last administered on 08/31/17 01 :33; Admin Dose 1 EA; Start 08/23/17 at 02:00 Miscellaneous Information 1 ea NOTE XX ; Start 08/22/17 at 13:30 Glucose (Glutose) 15 gm Q15M PRN PO DECREASED GLUCOSE; Start 08/22/17 at 13:30 Glucose (Glutose) 22.5 gm Q15M PRN PO DECREASED GLUCOSE; Start 08/22/17 at 13: 30 Dextrose (D50w Syringe) 25 ml Q15M PRN IV DECREASED GLUCOSE Last administered on 09/02/17 00:47; Admin Dose 25 ML; Start 08/22/17 at 13:30 Dextrose (D50w Syringe) 50 ml Q15M PRN IV DECREASED GLUCOSE; Start 08/22/17 at 13:30 Glucagon (Glucagen) 1 mg Q15M PRN IM DECREASED GLUCOSE; Start 08/22/17 at 13:30 Glucose (Glutose) 15 gm Q15M PRN BUCCAL DECREASED GLUCOSE; Start 08/22/17 at 13 :30 Sodium Hypochlorite (Dakin'S (Dilute 1/40%)) 1 applic BID IRR Last administered on 09/02/17 09:31; Admin Dose 1 APPLIC; Start 08/23/17 at 09:00 Metoprolol Tartrate (Lopressor) 50 mg BID GTB Last administered on 09/01/17 20:09; Admin Dose 50 MG; Start 08/24/17 at 21:00 Acetaminophen (Tylenol Tab) 500 mg Q4H PRN PO PAIN AND OR ELEVATED TEMP Last administered on 08/27/17 01:27; Admin Dose 500 MG; Start 08/25/17 at 12:00 Morphine Sulfate (morphine) 2 mg Q4H PRN IV PAIN LEVEL 4-6 Last administered on 08/31/17 15:03; Admin Dose 2 MG; Start 08/25/17 at 12:00 Lansoprazole 30 mg 30 mg DAILY@06 GTB Last administered on 09/02/17 06:54; Admin Dose 30 MG; Start 08/29/17 at 06:00 Vancomycin HCl/ Sodium Chloride (Vancocin/NS) 150 ml @ 75 mls/hr Q96H IVPB Last administered on 08/30/17 00:01; Admin Dose 75 MLS/HR; Start 08/29/17 at 23:00 Insulin Glargine (Lantus) 15 unit DAILY SC Last administered on 09/02/17 07: 57; Admin Dose 15 UNIT; Start 08/29/17 at 20:00 Tobramycin (Tobramycin Iv Per Pharmacy) TOBRAMYCIN PER PHARMACY NOTE XX ; Start 08/29/17 at 16:30 Insulin Aspart (Novolog Insulin Pen) (Adult SC Insulin - Mild Algorithm)... Q4 SC Last administered on 09/01/17 09:41; Admin Dose 1 UNIT; Start 08/31/17 at 16:00 Lisinopril (Zestril) 20 mg DAILY PO ; Start 09/02/17 at 09:00 Influenza Virus Vaccine (Fluzone) 0.5 ml ONCE ONCE IM* ; Start 09/03/17 at 09: 00; Stop 09/03/17 at 09:01 Assessment/Plan Chief Complaint/Hosp Course SUBJECTIVE: Tx to tele. No acute changes. The patient is lying comfortably in bed. No fevers. ANTIMICROBIALS: The patient is on IV vancomycin and tobramycin. INDWELLINGS: Trach, PEG, Chun, R fem Calos catheter and left upper extremity PICC line. PHYSICAL EXAMINATION: GENERAL: This is a chronically ill-appearing, elderly man in no distress. HEENT: Head atraumatic, normocephalic. Sclerae anicteric. Buccal mucosa dry. NECK: Obese. CHEST: Rise symmetrical. Breath sounds clear, diminished to bases. HEART: S1, S2. ABDOMEN: Soft. Bowel sounds present. EXTREMITIES: With trace edema. ASSESSMENT: 1. Status post septic shock. 2. Acute on chronic respiratory failure . 3. Healthcare-associated pneumonia. 4. Sacral decubitus. 5. 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 6. Diabetes. 7. Chronic encephalopathy. PLAN: Remains hemodynamically stable, completing antibiotics Problems: BISI MARTIN NP Sep 02, 2017 14:09
--- NOTE | 2017-09-02 16:05 | RADRPT ---
PROCEDURE: Chest 1 views. CLINICAL INDICATION: Shortness of breath. TECHNIQUE: AP views of the chest was obtained. COMPARISON: DR MERCADO 08/31/2017 FINDINGS: The heart is large. Tracheostomy tube is stable and appears in grossly appropriate location. Left-si ded PICC line is stable. Patchy infiltrates throughout both lungs, combined with small to moderate b ilateral pleural effusions are stable, given differences in technique. Osseous structures are intac t. IMPRESSION: Cardiomegaly . Stable infiltrates throughout both lungs, combined with small to moderate pleural effusions. RPTAT: AA .Malachi Souza MD, MD Date Time Electronically viewed and signed by .Malachi Souza MD, MD on 09/02/2017 16:05 .P/
--- NOTE | 2017-09-02 16:06 | CONS ---
Date/Time of Note Date/Time of Note DATE: 09/02/17 TIME: 16:03 Assessment/Plan Assessment/Plan Chief Complaint/Hosp Course IMPRESSION: 1. Positive troponin-in the setting of renal failure-No sig uptrend 2. Abnormal electrocardiogram, nonspecific ST-T abnormalities. 3. Hypertension-well controlled 4. Respiratory failure, chronic. 5. Renal failure, acute on chronic. 6. Dysphagia, status post G-tube. 7. Anemia-ongoing 8. Thrombocytopenia-Slowly improving 9. Encephalopathy. 10. History of CVA. 11. Diabetes mellitus. 12. Hypokalemia 14. Cardiomyopathy-depressed EF 40% Recc: -Tele -Continue BB/ACEI with uptitration to improve BP control -trend cardiac enzymes -follow volume status with HD for volume removal ongoing today -No ASA given severe anemia/thrombocytopenia and give transfusion as necessary -Continue abx's and f/u cx data Problems: Consultation Date/Type/Reason Admit Date/Time Aug 20, 2017 at 17:03 Initial Consult Date 08/20/17 Type of Consultation: cardiology Reason for Consultation HTN Referring Provider: HUSSEIN ROSE Exam/Review of Systems Vital Signs Vitals Vital Signs Date Time Temp Pulse Resp B/P Pulse Ox O2 Delivery O2 Flow Rate FiO2 09/02/17 15:32 92 169/93 09/02/17 13:15 21 98 40 09/02/17 07:57 98.3 09/01/17 21:00 Mechanical Ventilator Intake and Output 09/01/17 09/01/17 09/02/17 15:00 23:00 07:00 Intake Total 420 ml 330 ml 430 ml Output Total 0 ml 0 ml Balance 420 ml 330 ml 430 ml Exam Review of Systems: CONSTITUTIONAL: No fevers, chills. PULMONARY: No sob CARDIOVASCULAR: No chest pain/palpitations GASTROINTESTINAL: No nausea/vomiting. GENITOURINARY: No hematuria/dysuria. MUSCULOSKELETAL: No myagias/arthalgias. PSYCHIATRIC: The patient denies depression. NEUROLOGIC: No weakness Constitutional: other (encephalopathic) Psych: no complaints Head: normocephalic ENMT: mucosa pink and moist Neck: jvd (9 cm water), supple Respiratory: diminished breath sounds Cardiovascular: regular rate and rhythm Gastrointestinal: non-tender, soft Musculoskeletal: muscle tone Extremities: edema (none) Neurological: other (encephalopathic) Results Result Diagram: 09/01/17 0510 09/01/17 0510 Results 24 hrs Laboratory Tests Test 09/01/17 16:18 09/01/17 20:10 09/01/17 20:42 09/02/17 00:38 Bedside Glucose 86 67 L 91 51 L Test 09/02/17 01:00 09/02/17 01:27 09/02/17 06:54 09/02/17 07:53 Bedside Glucose 105 90 127 132 Test 09/02/17 12:47 Bedside Glucose 119 Medications Medications Current Medications Diagnostic Test (Pha) (Accu-Chek) 1 ea 02 XX Last administered on 08/31/17 01 :33; Admin Dose 1 EA; Start 08/23/17 at 02:00 Miscellaneous Information 1 ea NOTE XX ; Start 08/22/17 at 13:30 Glucose (Glutose) 15 gm Q15M PRN PO DECREASED GLUCOSE; Start 08/22/17 at 13:30 Glucose (Glutose) 22.5 gm Q15M PRN PO DECREASED GLUCOSE; Start 08/22/17 at 13: 30 Dextrose (D50w Syringe) 25 ml Q15M PRN IV DECREASED GLUCOSE Last administered on 09/02/17 00:47; Admin Dose 25 ML; Start 08/22/17 at 13:30 Dextrose (D50w Syringe) 50 ml Q15M PRN IV DECREASED GLUCOSE; Start 08/22/17 at 13:30 Glucagon (Glucagen) 1 mg Q15M PRN IM DECREASED GLUCOSE; Start 08/22/17 at 13:30 Glucose (Glutose) 15 gm Q15M PRN BUCCAL DECREASED GLUCOSE; Start 08/22/17 at 13 :30 Sodium Hypochlorite (Dakin'S (Dilute 1/40%)) 1 applic BID IRR Last administered on 09/02/17 09:31; Admin Dose 1 APPLIC; Start 08/23/17 at 09:00 Metoprolol Tartrate (Lopressor) 50 mg BID GTB Last administered on 09/02/17 15:29; Admin Dose 50 MG; Start 08/24/17 at 21:00 Acetaminophen (Tylenol Tab) 500 mg Q4H PRN PO PAIN AND OR ELEVATED TEMP Last administered on 08/27/17 01:27; Admin Dose 500 MG; Start 08/25/17 at 12:00 Morphine Sulfate (morphine) 2 mg Q4H PRN IV PAIN LEVEL 4-6 Last administered on 08/31/17 15:03; Admin Dose 2 MG; Start 08/25/17 at 12:00 Lansoprazole 30 mg 30 mg DAILY@06 GTB Last administered on 09/02/17 06:54; Admin Dose 30 MG; Start 08/29/17 at 06:00 Vancomycin HCl/ Sodium Chloride (Vancocin/NS) 150 ml @ 75 mls/hr Q96H IVPB Last administered on 08/30/17 00:01; Admin Dose 75 MLS/HR; Start 08/29/17 at 23:00 Insulin Glargine (Lantus) 15 unit DAILY SC Last administered on 09/02/17 07: 57; Admin Dose 15 UNIT; Start 08/29/17 at 20:00 Tobramycin (Tobramycin Iv Per Pharmacy) TOBRAMYCIN PER PHARMACY NOTE XX ; Start 08/29/17 at 16:30 Insulin Aspart (Novolog Insulin Pen) (Adult SC Insulin - Mild Algorithm)... Q4 SC Last administered on 09/01/17 09:41; Admin Dose 1 UNIT; Start 08/31/17 at 16:00 Lisinopril (Zestril) 20 mg DAILY PO Last administered on 09/02/17 15:27; Admin Dose 20 MG; Start 09/02/17 at 09:00 Influenza Virus Vaccine (Fluzone) 0.5 ml ONCE ONCE IM* ; Start 09/03/17 at 09: 00; Stop 09/03/17 at 09:01 BRENTON NORTON Sep 02, 2017 16:06
--- NOTE | 2017-09-02 16:40 | CONS ---
Date/Time of Note Date/Time of Note DATE: 09/02/17 TIME: 16:39 Assessment/Plan Assessment/Plan Additional Assessment/Plan 1. Sepsis due to PNA 2. Acute on chronic renal failure - with severe metabolic acidosis and acute uremic encephalopathy- pt is anuric, started on HD during this admission 3. AMS due to acute uremic encephalopathy + acute metabolic encephalopathy 3. H/o recent admission to [place] for renal failure 4. H/o chronic resp failure s/p tracheostomy 5. HTN 6. H/o CVA with residual weakness 7.. IDDM 8. Anemia,severe, anemia of chronic disease, Plan: started on HD during this admission, Plan for HD today Hepatitis panel, HIV negative pt will be half-way HD patient.,-will wait for pt to be more stable and platelets to stabilize before planning for detention HD and permacath, IV abx as per ID will follow up Consultation Date/Type/Reason Admit Date/Time Aug 20, 2017 at 17:03 Initial Consult Date 08/20/17 Type of Consultation: NEPHROLOGY Referring Provider: HUSSEIN ROSE 24 HR Interval Summary Free Text/Dictation HD today, BP stable, Exam/Review of Systems Vital Signs Vitals Vital Signs Date Time Temp Pulse Resp B/P Pulse Ox O2 Delivery O2 Flow Rate FiO2 09/02/17 16:25 99 09/02/17 15:32 169/93 09/02/17 13:15 21 98 40 09/02/17 07:57 98.3 09/01/17 21:00 Mechanical Ventilator Intake and Output 09/01/17 09/01/17 09/02/17 15:00 23:00 07:00 Intake Total 420 ml 330 ml 430 ml Output Total 0 ml 0 ml Balance 420 ml 330 ml 430 ml Exam Constitutional: non-verbal ENMT: other (+ tracheostomy on ventilator ) Respiratory: congested cough, crackles/rales, diminished breath sounds Cardiovascular: S3, regular rate and rhythm Gastrointestinal: non-tender, soft Musculoskeletal: other (2+ pittign edema ), swelling Neurological: other (non verbal ,lethargic, pt is s/p tracheostomy on ventilator ) Results Result Diagram: 09/01/17 0510 09/01/17 0510 Results 24 hrs Laboratory Tests Test 09/01/17 20:10 09/01/17 20:42 09/02/17 00:38 09/02/17 01:00 Bedside Glucose 67 L 91 51 L 105 Test 09/02/17 01:27 09/02/17 06:54 09/02/17 07:53 09/02/17 12:47 Bedside Glucose 90 127 132 119 Medications Medications Current Medications Diagnostic Test (Pha) (Accu-Chek) 1 ea 02 XX Last administered on 08/31/17 01 :33; Admin Dose 1 EA; Start 08/23/17 at 02:00 Miscellaneous Information 1 ea NOTE XX ; Start 08/22/17 at 13:30 Glucose (Glutose) 15 gm Q15M PRN PO DECREASED GLUCOSE; Start 08/22/17 at 13:30 Glucose (Glutose) 22.5 gm Q15M PRN PO DECREASED GLUCOSE; Start 08/22/17 at 13: 30 Dextrose (D50w Syringe) 25 ml Q15M PRN IV DECREASED GLUCOSE Last administered on 09/02/17 00:47; Admin Dose 25 ML; Start 08/22/17 at 13:30 Dextrose (D50w Syringe) 50 ml Q15M PRN IV DECREASED GLUCOSE; Start 08/22/17 at 13:30 Glucagon (Glucagen) 1 mg Q15M PRN IM DECREASED GLUCOSE; Start 08/22/17 at 13:30 Glucose (Glutose) 15 gm Q15M PRN BUCCAL DECREASED GLUCOSE; Start 08/22/17 at 13 :30 Sodium Hypochlorite (Dakin'S (Dilute 1/40%)) 1 applic BID IRR Last administered on 09/02/17 09:31; Admin Dose 1 APPLIC; Start 08/23/17 at 09:00 Metoprolol Tartrate (Lopressor) 50 mg BID GTB Last administered on 09/02/17 15:29; Admin Dose 50 MG; Start 08/24/17 at 21:00 Acetaminophen (Tylenol Tab) 500 mg Q4H PRN PO PAIN AND OR ELEVATED TEMP Last administered on 08/27/17 01:27; Admin Dose 500 MG; Start 08/25/17 at 12:00 Morphine Sulfate (morphine) 2 mg Q4H PRN IV PAIN LEVEL 4-6 Last administered on 08/31/17 15:03; Admin Dose 2 MG; Start 08/25/17 at 12:00 Lansoprazole 30 mg 30 mg DAILY@06 GTB Last administered on 09/02/17 06:54; Admin Dose 30 MG; Start 08/29/17 at 06:00 Vancomycin HCl/ Sodium Chloride (Vancocin/NS) 150 ml @ 75 mls/hr Q96H IVPB Last administered on 08/30/17 00:01; Admin Dose 75 MLS/HR; Start 08/29/17 at 23:00 Insulin Glargine (Lantus) 15 unit DAILY SC Last administered on 09/02/17 07: 57; Admin Dose 15 UNIT; Start 08/29/17 at 20:00 Tobramycin (Tobramycin Iv Per Pharmacy) TOBRAMYCIN PER PHARMACY NOTE XX ; Start 08/29/17 at 16:30 Insulin Aspart (Novolog Insulin Pen) (Adult SC Insulin - Mild Algorithm)... Q4 SC Last administered on 09/01/17 09:41; Admin Dose 1 UNIT; Start 08/31/17 at 16:00 Influenza Virus Vaccine (Fluzone) 0.5 ml ONCE ONCE IM* ; Start 09/03/17 at 09: 00; Stop 09/03/17 at 09:01 Lisinopril (Zestril) 20 mg BID PO ; Start 09/02/17 at 21:00 LUCILLE CABALLERO MD Sep 02, 2017 16:40
[2017-09-02] MEDS: TOBRAMYCIN 100 MG in SOD CHLORIDE 0.9% 50 ML IVPB SCH (17:47)
[2017-09-02] MEDS ORDERED: ALBUTEROL/IPRATROPIUM (NEB) 3 ML AMP HHN STA (21:41)
[2017-09-02] MEDS: morphine 2 MG INJ IV PRN (21:49)
--- NOTE | 2017-09-02 23:15 | RADRPT ---
PROCEDURE: XR Chest. CLINICAL INDICATION: Dyspnea. TECHNIQUE: Single frontal view of the chest. COMPARISON: 02/20/2017 FINDINGS: Cardiac silhouette is obscured by dense air space disease and pleural effusions. Recommend CT correl ation. Tracheostomy tube remains at midline. No signs of pleural fluid or pneumothorax are seen. The osseous structures and soft tissues are unremarkable. IMPRESSION: New dense air space disease and moderate pleural effusions, and recommend CT correlation. RPTAT: [facility] Physician Juani Date Time Electronically viewed and signed by Physician Juani on 09/02/2017 23:15 RS/
[2017-09-03] VITALS (24 sets, daily range): BP systolic 114–147; BP diastolic 56–70; PULSE 72–85; RESP 18–24
[2017-09-03] MEDS: SODIUM HYPOCHLORITE 1/40% 1L IRRIG IRR SCH ×3 (00:12→20:38)
[2017-09-03] MEDS: VANCOMYCIN 750 MG in SOD CHLORIDE 0.9% 150 ML IVPB SCH (00:13)
[2017-09-03] MEDS: INSULIN ASPART [NOVOLOG] 3 ML PEN SC SCH ×6 (00:23→20:44)
[2017-09-03] MEDS: ACCU-CHEK XX SCH (02:00)
[2017-09-03] MEDS: LANSOPRAZOLE 30 MG CAP GTB SCH (05:44)
[2017-09-03] MEDS ORDERED: INFLUENZA VIRUS VACCINE 0.5 ML SYG IM* ONE (09:00)
[2017-09-03] MEDS: LISINOPRIL 20 MG TAB PO SCH ×2 (09:25→20:22)
[2017-09-03] MEDS: METOPROLOL 50 MG TAB GTB SCH ×2 (09:26→20:22)
[2017-09-03] MEDS: INSULIN GLARGINE [LANtus] 3 ML PEN SC SCH (09:37)
--- NOTE | 2017-09-03 11:19 | CONS ---
Date/Time of Note Date/Time of Note DATE: 09/03/17 TIME: 11:19 Assessment/Plan Assessment/Plan Chief Complaint/Hosp Course ID PROGRESS NOTE CURRENT ABX: DAY #15 => Vanco IV + Tobra IV #6 s/p Zosyn 08/20 - 08/29 24H INTERVAL SUMMARY * Resting comfortably on the Vent, noncommunicative, no fevers, VSS * Chart reviewed Physical Exam Physical Exam Constitutional: VSS, NAD This is a chronically ill-appearing, elderly man HEENT: Unremarkable Neck: Trach secure to Vent Respiratory: clear to auscultation, normal air movement Cardiovascular: nl pulses, regular rate and rhythm Gastrointestinal: Soft, NT Extremities: Warm ID ASSESSMENT 81 yo M w/PMHx CVA w/residual weakness, dysphagia-> peg, VDRF, admit with: 1. Status post septic shock. 2. Acute on chronic respiratory failure . 3. Healthcare-associated pneumonia. * RESPIRATORY CULTURE Final Organism 1 SERRATIA LIQUEFACIENS Organism 2 PSEUDOMONAS AERUGINOSA 4. Sacral decubitus IV * WOUND CULTURE Final Organism 1 MORGANELLA MORGANII Organism 2 PSEUDOMONAS AERUGINOSA Organism 3 PROTEUS MIRABILIS 5. 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 6. Diabetes. 7. Chronic encephalopathy. (- )MRSA Nares ABX ALLERGIES: KNDA CURRENT ABX: DAY #15 => Vanco IV + Tobra IV #6 s/p Zosyn 08/20 - 08/29 ID RECOMMENDATIONS 1. Continue ABX over the weekend -> anticipate DC ABX Tuesday and DC To SNF OFF ABX . Problems: Consultation Date/Type/Reason Admit Date/Time Aug 20, 2017 at 17:03 Initial Consult Date 08/20/17 Type of Consultation: ID Referring Provider: HUSSEIN ROSE Exam/Review of Systems Vital Signs Vitals Vital Signs Date Time Temp Pulse Resp B/P Pulse Ox O2 Delivery O2 Flow Rate FiO2 09/03/17 09:40 88 24 98 45 09/03/17 07:37 98.0 120/62 09/01/17 21:00 Mechanical Ventilator Intake and Output 09/02/17 09/02/17 09/03/17 14:59 22:59 06:59 Intake Total 600 ml 682.5 ml 790 ml Output Total 3000 ml Balance -2400 ml 682.5 ml 790 ml Results Result Diagram: 09/03/17 0550 09/03/17 0550 Results 24 hrs Laboratory Tests Test 09/02/17 12:47 09/02/17 17:33 09/02/17 17:51 09/02/17 18:14 Bedside Glucose 119 62 L 141 101 Test 09/02/17 21:11 09/02/17 21:25 09/02/17 21:38 09/02/17 21:52 Bedside Glucose 81 81 98 Blood Gas Specimen Source Blood arterial Arterial Blood Date Drawn 09/02/2017 9:40:53 PM Arterial Blood pH (Temp corrected) 7.282 *L Arterial Blood pCO2 (Temp correct) 69.8 H Arterial Blood pO2 (Temp corrected) 75.7 L Arterial Blood HCO3 32.2 H Arterial Blood Base Excess 3.6 H Arterial Blood Oxygen Saturation 93.8 L Harsha Test ACCEPTAB Arterial Blood Gas Puncture Site Right Radial Arterial Blood Carboxyhemoglobin 0.5 Arterial Blood Methemoglobin 0.2 Blood Gas A-a O2 Differential 275.3 H Oxyhemoglobin Percent 93.1 Total Hemoglobin 12.4 Blood Gas Temperature 37.0 Blood Gas Respiration Rate 18.0 Blood Gas Actual Respiration Rate 20 Blood Gas Modality VENT - AC FiO2 60.0 Blood Gas Tidal Volume 450.0 Blood Gas Low PEEP Setting 5.0 Blood Gas Critical Value Read Back Vlad LEMON RN Blood Gas Notified Whom UP Blood Gas Notified Time 09/02/2017 9:55:51 PM Test 09/03/17 00:21 09/03/17 05:47 09/03/17 05:50 09/03/17 09:22 Bedside Glucose 174 141 159 White Blood Count 5.4 Red Blood Count 2.86 L Hemoglobin 8.2 L Hematocrit 26.3 L Mean Corpuscular Volume 92.0 Mean Corpuscular Hemoglobin 28.7 L Mean Corpuscular Hemoglobin Concent 31.2 L Red Cell Distribution Width 14.7 H Platelet Count 134 #L Mean Platelet Volume 11.3 H Neutrophils % 67.0 Lymphocytes % 23.8 Monocytes % 6.0 Eosinophils % 2.6 Basophils % 0.4 Nucleated Red Blood Cells % 0.0 Neutrophils # 3.6 Lymphocytes # 1.3 Monocytes # 0.3 Eosinophils # 0.1 Basophils # 0.0 Nucleated Red Blood Cells # 0.0 Sodium Level 137 Potassium Level 4.5 Chloride Level 99 Carbon Dioxide Level 30 Anion Gap 13 Blood Urea Nitrogen 51 H Creatinine 3.47 H Glucose Level 146 Calcium Level 7.5 L Medications Medications Current Medications Diagnostic Test (Pha) (Accu-Chek) 1 ea 02 XX Last administered on 08/31/17 01 :33; Admin Dose 1 EA; Start 08/23/17 at 02:00 Miscellaneous Information 1 ea NOTE XX ; Start 08/22/17 at 13:30 Glucose (Glutose) 15 gm Q15M PRN PO DECREASED GLUCOSE; Start 08/22/17 at 13:30 Glucose (Glutose) 22.5 gm Q15M PRN PO DECREASED GLUCOSE; Start 08/22/17 at 13: 30 Dextrose (D50w Syringe) 25 ml Q15M PRN IV DECREASED GLUCOSE Last administered on 09/02/17 17:42; Admin Dose 25 ML; Start 08/22/17 at 13:30 Dextrose (D50w Syringe) 50 ml Q15M PRN IV DECREASED GLUCOSE; Start 08/22/17 at 13:30 Glucagon (Glucagen) 1 mg Q15M PRN IM DECREASED GLUCOSE; Start 08/22/17 at 13:30 Glucose (Glutose) 15 gm Q15M PRN BUCCAL DECREASED GLUCOSE; Start 08/22/17 at 13 :30 Sodium Hypochlorite (Dakin'S (Dilute 1/40%)) 1 applic BID IRR Last administered on 09/03/17 09:25; Admin Dose 1 APPLIC; Start 08/23/17 at 09:00 Metoprolol Tartrate (Lopressor) 50 mg BID GTB Last administered on 09/03/17 09:26; Admin Dose 50 MG; Start 08/24/17 at 21:00 Acetaminophen (Tylenol Tab) 500 mg Q4H PRN PO PAIN AND OR ELEVATED TEMP Last administered on 08/27/17 01:27; Admin Dose 500 MG; Start 08/25/17 at 12:00 Morphine Sulfate (morphine) 2 mg Q4H PRN IV PAIN LEVEL 4-6 Last administered on 09/02/17 21:49; Admin Dose 2 MG; Start 08/25/17 at 12:00 Lansoprazole 30 mg 30 mg DAILY@06 GTB Last administered on 09/03/17 05:44; Admin Dose 30 MG; Start 08/29/17 at 06:00 Vancomycin HCl/ Sodium Chloride (Vancocin/NS) 150 ml @ 75 mls/hr Q96H IVPB Last administered on 09/03/17 00:13; Admin Dose 75 MLS/HR; Start 08/29/17 at 23:00 Insulin Glargine (Lantus) 15 unit DAILY SC Last administered on 09/03/17 09: 37; Admin Dose 15 UNIT; Start 08/29/17 at 20:00 Tobramycin (Tobramycin Iv Per Pharmacy) TOBRAMYCIN PER PHARMACY NOTE XX ; Start 08/29/17 at 16:30 Insulin Aspart (Novolog Insulin Pen) (Adult SC Insulin - Mild Algorithm)... Q4 SC Last administered on 09/03/17 09:37; Admin Dose 1 UNIT; Start 08/31/17 at 16:00 Lisinopril (Zestril) 20 mg BID PO Last administered on 09/03/17 09:25; Admin Dose 20 MG; Start 09/02/17 at 21:00 Clonidine (Catapres) 0.1 mg Q6H PRN GTB ELEVATED SYSTOLIC BP Last administered on 09/02/17 21:48; Admin Dose 0.1 MG; Start 09/02/17 at 21:30 DOMITILA QUIÑONES NP Sep 03, 2017 11:19
--- NOTE | 2017-09-03 11:22 | PN ---
Date/Time of Note Date/Time of Note DATE: 09/03/17 TIME: 11:21 Assessment/Plan VTE Prophylaxis VTE Prophylaxis Intervention: other Lines/Catheters IV C[facility] Type ([facility] PICC Line Central line still needed: Yes Urinary Cath still in place: No Assessment/Plan Chief Complaint/Hosp Course -Acute on chronic CKD. Continue hemodialysis. Dr. Nieto is following in nephrology consultation. -Ventilator dependent respiratory failure with tracheostomy. -Pulmonary edema versus multifocal pneumonia, continue broad-spectrum antibiotics, Dr Hill is following in infection disease consultation -Positive troponin in the setting of renal disease, Dr. Zuniga is following in cardiology consultation -Acute metabolic encephalopathy -Anemia, s/p blood transfusion, f/up on stool for OB, continue to monitor hemoglobin and hematocrit -DM, continue Lantus, NovoLog per sliding scale. -Dysphagia with PEG -Sacral wound Problems: Subjective 24 Hr Interval Summary Free Text/Dictation Patient resting, trach in place Exam/Review of Systems Vital Signs Vitals Vital Signs Date Time Temp Pulse Resp B/P Pulse Ox O2 Delivery O2 Flow Rate FiO2 09/03/17 09:40 88 24 98 45 09/03/17 07:37 98.0 120/62 09/01/17 21:00 Mechanical Ventilator Intake and Output 09/02/17 09/02/17 09/03/17 15:00 23:00 07:00 Intake Total 600 ml 682.5 ml 790 ml Output Total 3000 ml Balance -2400 ml 682.5 ml 790 ml Exam Constitutional: well developed Head: atraumatic, normocephalic Neck: supple Respiratory: diminished breath sounds Cardiovascular: regular rate and rhythm Gastrointestinal: non-tender, soft Extremities: normal pulses Results Result Diagram: 09/03/17 0550 09/03/17 0550 Results 24 hrs Laboratory Tests Test 09/02/17 12:47 09/02/17 17:33 09/02/17 17:51 09/02/17 18:14 Bedside Glucose 119 62 L 141 101 Test 09/02/17 21:11 09/02/17 21:25 09/02/17 21:38 09/02/17 21:52 Bedside Glucose 81 81 98 Blood Gas Specimen Source Blood arterial Arterial Blood Date Drawn 09/02/2017 9:40:53 PM Arterial Blood pH (Temp corrected) 7.282 *L Arterial Blood pCO2 (Temp correct) 69.8 H Arterial Blood pO2 (Temp corrected) 75.7 L Arterial Blood HCO3 32.2 H Arterial Blood Base Excess 3.6 H Arterial Blood Oxygen Saturation 93.8 L Harsha Test ACCEPTAB Arterial Blood Gas Puncture Site Right Radial Arterial Blood Carboxyhemoglobin 0.5 Arterial Blood Methemoglobin 0.2 Blood Gas A-a O2 Differential 275.3 H Oxyhemoglobin Percent 93.1 Total Hemoglobin 12.4 Blood Gas Temperature 37.0 Blood Gas Respiration Rate 18.0 Blood Gas Actual Respiration Rate 20 Blood Gas Modality VENT - AC FiO2 60.0 Blood Gas Tidal Volume 450.0 Blood Gas Low PEEP Setting 5.0 Blood Gas Critical Value Read Back T XOCHILT WU Blood Gas Notified Whom UP Blood Gas Notified Time 09/02/2017 9:55:51 PM Test 09/03/17 00:21 09/03/17 05:47 09/03/17 05:50 09/03/17 09:22 Bedside Glucose 174 141 159 White Blood Count 5.4 Red Blood Count 2.86 L Hemoglobin 8.2 L Hematocrit 26.3 L Mean Corpuscular Volume 92.0 Mean Corpuscular Hemoglobin 28.7 L Mean Corpuscular Hemoglobin Concent 31.2 L Red Cell Distribution Width 14.7 H Platelet Count 134 #L Mean Platelet Volume 11.3 H Neutrophils % 67.0 Lymphocytes % 23.8 Monocytes % 6.0 Eosinophils % 2.6 Basophils % 0.4 Nucleated Red Blood Cells % 0.0 Neutrophils # 3.6 Lymphocytes # 1.3 Monocytes # 0.3 Eosinophils # 0.1 Basophils # 0.0 Nucleated Red Blood Cells # 0.0 Sodium Level 137 Potassium Level 4.5 Chloride Level 99 Carbon Dioxide Level 30 Anion Gap 13 Blood Urea Nitrogen 51 H Creatinine 3.47 H Glucose Level 146 Calcium Level 7.5 L Medications Medications Current Medications Diagnostic Test (Pha) (Accu-Chek) 1 ea 02 XX Last administered on 08/31/17t 01 :33; Admin Dose 1 EA; Start 08/23/17 at 02:00 Miscellaneous Information 1 ea NOTE XX ; Start 08/22/17 at 13:30 Glucose (Glutose) 15 gm Q15M PRN PO DECREASED GLUCOSE; Start 08/22/17 at 13:30 Glucose (Glutose) 22.5 gm Q15M PRN PO DECREASED GLUCOSE; Start 08/22/17 at 13: 30 Dextrose (D50w Syringe) 25 ml Q15M PRN IV DECREASED GLUCOSE Last administered on 09/02/17 17:42; Admin Dose 25 ML; Start 08/22/17 at 13:30 Dextrose (D50w Syringe) 50 ml Q15M PRN IV DECREASED GLUCOSE; Start 08/22/17 at 13:30 Glucagon (Glucagen) 1 mg Q15M PRN IM DECREASED GLUCOSE; Start 08/22/17 at 13:30 Glucose (Glutose) 15 gm Q15M PRN BUCCAL DECREASED GLUCOSE; Start 08/22/17 at 13 :30 Sodium Hypochlorite (Dakin'S (Dilute 1/40%)) 1 applic BID IRR Last administered on 09/03/17 09:25; Admin Dose 1 APPLIC; Start 08/23/17 at 09:00 Metoprolol Tartrate (Lopressor) 50 mg BID GTB Last administered on 09/03/17 09:26; Admin Dose 50 MG; Start 08/24/17 at 21:00 Acetaminophen (Tylenol Tab) 500 mg Q4H PRN PO PAIN AND OR ELEVATED TEMP Last administered on 08/27/17 01:27; Admin Dose 500 MG; Start 08/25/17 at 12:00 Morphine Sulfate (morphine) 2 mg Q4H PRN IV PAIN LEVEL 4-6 Last administered on 09/02/17 21:49; Admin Dose 2 MG; Start 08/25/17 at 12:00 Lansoprazole 30 mg 30 mg DAILY@06 GTB Last administered on 09/03/17 05:44; Admin Dose 30 MG; Start 08/29/17 at 06:00 Vancomycin HCl/ Sodium Chloride (Vancocin/NS) 150 ml @ 75 mls/hr Q96H IVPB Last administered on 09/03/17 00:13; Admin Dose 75 MLS/HR; Start 08/29/17 at 23:00 Insulin Glargine (Lantus) 15 unit DAILY SC Last administered on 09/03/17 09: 37; Admin Dose 15 UNIT; Start 08/29/17 at 20:00 Tobramycin (Tobramycin Iv Per Pharmacy) TOBRAMYCIN PER PHARMACY NOTE XX ; Start 08/29/17 at 16:30 Insulin Aspart (Novolog Insulin Pen) (Adult SC Insulin - Mild Algorithm)... Q4 SC Last administered on 09/03/17 09:37; Admin Dose 1 UNIT; Start 08/31/17 at 16:00 Lisinopril (Zestril) 20 mg BID PO Last administered on 09/03/17 09:25; Admin Dose 20 MG; Start 09/02/17 at 21:00 Clonidine (Catapres) 0.1 mg Q6H PRN GTB ELEVATED SYSTOLIC BP Last administered on 09/02/17 21:48; Admin Dose 0.1 MG; Start 09/02/17 at 21:30 HUSSEIN ROSE Sep 03, 2017 11:22
--- NOTE | 2017-09-03 11:28 | CONS ---
Date/Time of Note Date/Time of Note DATE: 09/03/17 TIME: 11:27 Consultation Date/Type/Reason Admit Date/Time Aug 20, 2017 at 17:03 Initial Consult Date 08/20/17 Type of Consultation: pulm Referring Provider: HUSSEIN ROSE 24 HR Interval Summary Free Text/Dictation dictated [id number] Exam/Review of Systems Vital Signs Vitals Vital Signs Date Time Temp Pulse Resp B/P Pulse Ox O2 Delivery O2 Flow Rate FiO2 09/03/17 09:40 88 24 98 45 09/03/17 07:37 98.0 120/62 09/01/17 21:00 Mechanical Ventilator Intake and Output 09/02/17 09/02/17 09/03/17 15:00 23:00 07:00 Intake Total 600 ml 682.5 ml 790 ml Output Total 3000 ml Balance -2400 ml 682.5 ml 790 ml Results Result Diagram: 09/03/17 0550 09/03/17 0550 Results 24 hrs Laboratory Tests Test 09/02/17 12:47 09/02/17 17:33 09/02/17 17:51 09/02/17 18:14 Bedside Glucose 119 62 L 141 101 Test 09/02/17 21:11 09/02/17 21:25 09/02/17 21:38 09/02/17 21:52 Bedside Glucose 81 81 98 Blood Gas Specimen Source Blood arterial Arterial Blood Date Drawn 09/02/2017 9:40:53 PM Arterial Blood pH (Temp corrected) 7.282 *L Arterial Blood pCO2 (Temp correct) 69.8 H Arterial Blood pO2 (Temp corrected) 75.7 L Arterial Blood HCO3 32.2 H Arterial Blood Base Excess 3.6 H Arterial Blood Oxygen Saturation 93.8 L Harsha Test ACCEPTAB Arterial Blood Gas Puncture Site Right Radial Arterial Blood Carboxyhemoglobin 0.5 Arterial Blood Methemoglobin 0.2 Blood Gas A-a O2 Differential 275.3 H Oxyhemoglobin Percent 93.1 Total Hemoglobin 12.4 Blood Gas Temperature 37.0 Blood Gas Respiration Rate 18.0 Blood Gas Actual Respiration Rate 20 Blood Gas Modality VENT - AC FiO2 60.0 Blood Gas Tidal Volume 450.0 Blood Gas Low PEEP Setting 5.0 Blood Gas Critical Value Read Back T XOCHILT WU Blood Gas Notified Whom UP Blood Gas Notified Time 09/02/2017 9:55:51 PM Test 09/03/17 00:21 09/03/17 05:47 09/03/17 05:50 09/03/17 09:22 Bedside Glucose 174 141 159 White Blood Count 5.4 Red Blood Count 2.86 L Hemoglobin 8.2 L Hematocrit 26.3 L Mean Corpuscular Volume 92.0 Mean Corpuscular Hemoglobin 28.7 L Mean Corpuscular Hemoglobin Concent 31.2 L Red Cell Distribution Width 14.7 H Platelet Count 134 #L Mean Platelet Volume 11.3 H Neutrophils % 67.0 Lymphocytes % 23.8 Monocytes % 6.0 Eosinophils % 2.6 Basophils % 0.4 Nucleated Red Blood Cells % 0.0 Neutrophils # 3.6 Lymphocytes # 1.3 Monocytes # 0.3 Eosinophils # 0.1 Basophils # 0.0 Nucleated Red Blood Cells # 0.0 Sodium Level 137 Potassium Level 4.5 Chloride Level 99 Carbon Dioxide Level 30 Anion Gap 13 Blood Urea Nitrogen 51 H Creatinine 3.47 H Glucose Level 146 Calcium Level 7.5 L Medications Medications Current Medications Diagnostic Test (Pha) (Accu-Chek) 1 ea 02 XX Last administered on 08/31/17 01 :33; Admin Dose 1 EA; Start 08/23/17 at 02:00 Miscellaneous Information 1 ea NOTE XX ; Start 08/22/17 at 13:30 Glucose (Glutose) 15 gm Q15M PRN PO DECREASED GLUCOSE; Start 08/22/17 at 13:30 Glucose (Glutose) 22.5 gm Q15M PRN PO DECREASED GLUCOSE; Start 08/22/17 at 13: 30 Dextrose (D50w Syringe) 25 ml Q15M PRN IV DECREASED GLUCOSE Last administered on 09/02/17 17:42; Admin Dose 25 ML; Start 08/22/17 at 13:30 Dextrose (D50w Syringe) 50 ml Q15M PRN IV DECREASED GLUCOSE; Start 08/22/17 at 13:30 Glucagon (Glucagen) 1 mg Q15M PRN IM DECREASED GLUCOSE; Start 08/22/17 at 13:30 Glucose (Glutose) 15 gm Q15M PRN BUCCAL DECREASED GLUCOSE; Start 08/22/17 at 13 :30 Sodium Hypochlorite (Dakin'S (Dilute 1/40%)) 1 applic BID IRR Last administered on 09/03/17 09:25; Admin Dose 1 APPLIC; Start 08/23/17 at 09:00 Metoprolol Tartrate (Lopressor) 50 mg BID GTB Last administered on 09/03/17 09:26; Admin Dose 50 MG; Start 08/24/17 at 21:00 Acetaminophen (Tylenol Tab) 500 mg Q4H PRN PO PAIN AND OR ELEVATED TEMP Last administered on 08/27/17 01:27; Admin Dose 500 MG; Start 08/25/17 at 12:00 Morphine Sulfate (morphine) 2 mg Q4H PRN IV PAIN LEVEL 4-6 Last administered on 09/02/17 21:49; Admin Dose 2 MG; Start 08/25/17 at 12:00 Lansoprazole 30 mg 30 mg DAILY@06 GTB Last administered on 09/03/17 05:44; Admin Dose 30 MG; Start 08/29/17 at 06:00 Vancomycin HCl/ Sodium Chloride (Vancocin/NS) 150 ml @ 75 mls/hr Q96H IVPB Last administered on 09/03/17 00:13; Admin Dose 75 MLS/HR; Start 08/29/17 at 23:00 Insulin Glargine (Lantus) 15 unit DAILY SC Last administered on 09/03/17 09: 37; Admin Dose 15 UNIT; Start 08/29/17 at 20:00 Tobramycin (Tobramycin Iv Per Pharmacy) TOBRAMYCIN PER PHARMACY NOTE XX ; Start 08/29/17 at 16:30 Insulin Aspart (Novolog Insulin Pen) (Adult SC Insulin - Mild Algorithm)... Q4 SC Last administered on 09/03/17 09:37; Admin Dose 1 UNIT; Start 08/31/17 at 16:00 Lisinopril (Zestril) 20 mg BID PO Last administered on 09/03/17 09:25; Admin Dose 20 MG; Start 09/02/17 at 21:00 Clonidine (Catapres) 0.1 mg Q6H PRN GTB ELEVATED SYSTOLIC BP Last administered on 09/02/17 21:48; Admin Dose 0.1 MG; Start 09/02/17 at 21:30 ODETTE MCKEON Sep 03, 2017 11:28
--- NOTE | 2017-09-03 12:34 | CONS ---
Date/Time of Note Date/Time of Note DATE: 09/03/17 TIME: 12:33 Assessment/Plan Assessment/Plan Additional Assessment/Plan 1. Positive troponin status. Significant in the setting of renal failure-No sig uptrend - no cp now, no intervention planned. STABLE. 2. Abnormal electrocardiogram, nonspecific ST-T abnormalities.- stable overall. 3. Hypertension- labile - no CP, will allow for now 4. Respiratory failure, chronic - resp team follows. 5. Renal failure, acute on chronic. 6. Dysphagia, status post G-tube. 7. Anemia-ongoing - replace as needed 8. Thrombocytopenia-ongoing 9. Encephalopathy. 10. 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 11. Diabetes mellitus. 12. Hypokalemia 14. Cardiomyopathy-depressed EF 40% Consultation Date/Type/Reason Admit Date/Time Aug 20, 2017 at 17:03 Initial Consult Date 08/20/17 Type of Consultation: pulm Referring Provider: HUSSEIN ROSE 24 HR Interval Summary Free Text/Dictation NO acute events - no significant ectopy on tele ROS: No fever, no chills, no nausea, no vomiting, no diarrhea/constipation No recent weight changes No chest pain, no PND, no orthopnea + SOB chronic No dizziness, blurred vision No thirst, no heat or cold intolerance Exam/Review of Systems Vital Signs Vitals Vital Signs Date Time Temp Pulse Resp B/P Pulse Ox O2 Delivery O2 Flow Rate FiO2 09/03/17 11:47 98.0 79 18 128/57 98 09/03/17 09:40 45 09/01/17 21:00 Mechanical Ventilator Intake and Output 09/02/17 09/02/17 09/03/17 15:00 23:00 07:00 Intake Total 600 ml 682.5 ml 790 ml Output Total 3000 ml Balance -2400 ml 682.5 ml 790 ml Exam General: WN/WD/NAD, AOx 0 HEENT: Unicetric/atraumatic/EOMI (does not follow commands) NECK: JVD elevated, no thyromegaly Lymph: no lymphadenopathy HEART: regular with no S3, II/ systolic murmur at apex LUNGS: Coarse sounds ABD: soft, NT, ND, +BS, PEG : Intact Neuro: non focal SKIN: chronic changes EXT: trace edema Results Result Diagram: 09/03/17 0550 09/03/17 0550 Results 24 hrs Laboratory Tests Test 09/02/17 12:47 09/02/17 17:33 09/02/17 17:51 09/02/17 18:14 Bedside Glucose 119 62 L 141 101 Test 09/02/17 21:11 09/02/17 21:25 09/02/17 21:38 09/02/17 21:52 Bedside Glucose 81 81 98 Blood Gas Specimen Source Blood arterial Arterial Blood Date Drawn 09/02/2017 9:40:53 PM Arterial Blood pH (Temp corrected) 7.282 *L Arterial Blood pCO2 (Temp correct) 69.8 H Arterial Blood pO2 (Temp corrected) 75.7 L Arterial Blood HCO3 32.2 H Arterial Blood Base Excess 3.6 H Arterial Blood Oxygen Saturation 93.8 L Harsha Test ACCEPTAB Arterial Blood Gas Puncture Site Right Radial Arterial Blood Carboxyhemoglobin 0.5 Arterial Blood Methemoglobin 0.2 Blood Gas A-a O2 Differential 275.3 H Oxyhemoglobin Percent 93.1 Total Hemoglobin 12.4 Blood Gas Temperature 37.0 Blood Gas Respiration Rate 18.0 Blood Gas Actual Respiration Rate 20 Blood Gas Modality VENT - AC FiO2 60.0 Blood Gas Tidal Volume 450.0 Blood Gas Low PEEP Setting 5.0 Blood Gas Critical Value Read Back Vlad LEMON RN Blood Gas Notified Whom UP Blood Gas Notified Time 09/02/2017 9:55:51 PM Test 09/03/17 00:21 09/03/17 05:47 09/03/17 05:50 09/03/17 09:22 Bedside Glucose 174 141 159 White Blood Count 5.4 Red Blood Count 2.86 L Hemoglobin 8.2 L Hematocrit 26.3 L Mean Corpuscular Volume 92.0 Mean Corpuscular Hemoglobin 28.7 L Mean Corpuscular Hemoglobin Concent 31.2 L Red Cell Distribution Width 14.7 H Platelet Count 134 #L Mean Platelet Volume 11.3 H Neutrophils % 67.0 Lymphocytes % 23.8 Monocytes % 6.0 Eosinophils % 2.6 Basophils % 0.4 Nucleated Red Blood Cells % 0.0 Neutrophils # 3.6 Lymphocytes # 1.3 Monocytes # 0.3 Eosinophils # 0.1 Basophils # 0.0 Nucleated Red Blood Cells # 0.0 Sodium Level 137 Potassium Level 4.5 Chloride Level 99 Carbon Dioxide Level 30 Anion Gap 13 Blood Urea Nitrogen 51 H Creatinine 3.47 H Glucose Level 146 Calcium Level 7.5 L Medications Medications Current Medications Diagnostic Test (Pha) (Accu-Chek) 1 ea 02 XX Last administered on 08/31/17 01 :33; Admin Dose 1 EA; Start 08/23/17 at 02:00 Miscellaneous Information 1 ea NOTE XX ; Start 08/22/17 at 13:30 Glucose (Glutose) 15 gm Q15M PRN PO DECREASED GLUCOSE; Start 08/22/17 at 13:30 Glucose (Glutose) 22.5 gm Q15M PRN PO DECREASED GLUCOSE; Start 08/22/17 at 13: 30 Dextrose (D50w Syringe) 25 ml Q15M PRN IV DECREASED GLUCOSE Last administered on 09/02/17 17:42; Admin Dose 25 ML; Start 08/22/17 at 13:30 Dextrose (D50w Syringe) 50 ml Q15M PRN IV DECREASED GLUCOSE; Start 08/22/17 at 13:30 Glucagon (Glucagen) 1 mg Q15M PRN IM DECREASED GLUCOSE; Start 08/22/17 at 13:30 Glucose (Glutose) 15 gm Q15M PRN BUCCAL DECREASED GLUCOSE; Start 08/22/17 at 13 :30 Sodium Hypochlorite (Dakin'S (Dilute 1/40%)) 1 applic BID IRR Last administered on 09/03/17 09:25; Admin Dose 1 APPLIC; Start 08/23/17 at 09:00 Metoprolol Tartrate (Lopressor) 50 mg BID GTB Last administered on 09/03/17 09:26; Admin Dose 50 MG; Start 08/24/17 at 21:00 Acetaminophen (Tylenol Tab) 500 mg Q4H PRN PO PAIN AND OR ELEVATED TEMP Last administered on 08/27/17 01:27; Admin Dose 500 MG; Start 08/25/17 at 12:00 Morphine Sulfate (morphine) 2 mg Q4H PRN IV PAIN LEVEL 4-6 Last administered on 09/02/17 21:49; Admin Dose 2 MG; Start 08/25/17 at 12:00 Lansoprazole 30 mg 30 mg DAILY@06 GTB Last administered on 09/03/17 05:44; Admin Dose 30 MG; Start 08/29/17 at 06:00 Vancomycin HCl/ Sodium Chloride (Vancocin/NS) 150 ml @ 75 mls/hr Q96H IVPB Last administered on 09/03/17 00:13; Admin Dose 75 MLS/HR; Start 08/29/17 at 23:00 Insulin Glargine (Lantus) 15 unit DAILY SC Last administered on 09/03/17 09: 37; Admin Dose 15 UNIT; Start 08/29/17 at 20:00 Tobramycin (Tobramycin Iv Per Pharmacy) TOBRAMYCIN PER PHARMACY NOTE XX ; Start 08/29/17 at 16:30 Insulin Aspart (Novolog Insulin Pen) (Adult SC Insulin - Mild Algorithm)... Q4 SC Last administered on 09/03/17 09:37; Admin Dose 1 UNIT; Start 08/31/17 at 16:00 Lisinopril (Zestril) 20 mg BID PO Last administered on 09/03/17 09:25; Admin Dose 20 MG; Start 09/02/17 at 21:00 Clonidine (Catapres) 0.1 mg Q6H PRN GTB ELEVATED SYSTOLIC BP Last administered on 09/02/17 21:48; Admin Dose 0.1 MG; Start 09/02/17 at 21:30 ABE SILVA MD Sep 03, 2017 12:34
--- NOTE | 2017-09-03 12:39 | PN ---
Date/Time of Note Date/Time of Note DATE: 09/01/17 TIME: 18:27 Assessment/Plan VTE Prophylaxis VTE Prophylaxis Intervention: other Lines/Catheters IV C[facility] Type (from [facility] PICC Line Urinary Cath still in place: No Assessment/Plan Assessment/Plan Patient is undergoing hemodialysis, continue on ventilator support, FiO2 weaned to 30% per RN, pending transfer to telemetry floor. Assessment/Plan -Acute on chronic CKD. Continue hemodialysis. Dr. Nieto is following in nephrology consultation. -Ventilator dependent respiratory failure with tracheostomy. -Pulmonary edema versus multifocal pneumonia, continue broad-spectrum antibiotics, Dr Hill is following in infection disease consultation -Positive troponin in the setting of renal disease, Dr. Zuniga is following in cardiology consultation -Acute metabolic encephalopathy -Anemia, s/p blood transfusion, f/up on stool for OB, continue to monitor hemoglobin and hematocrit -DM, continue Lantus, NovoLog per sliding scale. -Dysphagia with PEG -Sacral wound Further recommendations based on clinical course. Plan of care discussed with Dr. Chávez. Exam/Review of Systems Vital Signs Vitals Vital Signs Date Time Temp Pulse Resp B/P Pulse Ox O2 Delivery O2 Flow Rate FiO2 09/01/17 18:00 81 18 123/63 99 Mechanical Ventilator 09/01/17 17:30 40 09/01/17 16:00 98.0 Intake and Output 08/31/17 08/31/17 09/01/17 15:00 23:00 07:00 Intake Total 872.5 ml 320 ml 320 ml Output Total 2700 ml 0 ml 0 ml Balance -1827.5 ml 320 ml 320 ml Results Result Diagram: 09/01/17 0510 09/01/17 0510 Results 24 hrs Laboratory Tests Test 08/31/17 21:39 09/01/17 05:10 09/01/17 06:28 09/01/17 09:37 Bedside Glucose 104 156 164 White Blood Count 6.7 Red Blood Count 3.13 L Hemoglobin 8.8 L Hematocrit 29.1 L Mean Corpuscular Volume 93.0 Mean Corpuscular Hemoglobin 28.1 L Mean Corpuscular Hemoglobin Concent 30.2 L Red Cell Distribution Width 15.3 H Platelet Count 98 L Mean Platelet Volume 12.0 H Neutrophils % 77.0 Lymphocytes % 13.9 L Monocytes % 5.4 Eosinophils % 2.5 Basophils % 0.6 Nucleated Red Blood Cells % 0.0 Neutrophils # 5.2 Lymphocytes # 0.9 Monocytes # 0.4 Eosinophils # 0.2 Basophils # 0.0 Nucleated Red Blood Cells # 0.0 Sodium Level 138 Potassium Level 4.1 Chloride Level 103 Carbon Dioxide Level 30 Anion Gap 9 Blood Urea Nitrogen 60 H Creatinine 3.54 H Glucose Level 145 Calcium Level 8.0 L Test 09/01/17 12:53 09/01/17 16:18 Bedside Glucose 114 86 Medications Medications Current Medications Diagnostic Test (Pha) (Accu-Chek) 1 ea 02 XX Last administered on 08/31/17 01 :33; Admin Dose 1 EA; Start 08/23/17 at 02:00 Miscellaneous Information 1 ea NOTE XX ; Start 08/22/17 at 13:30 Glucose (Glutose) 15 gm Q15M PRN PO DECREASED GLUCOSE; Start 08/22/17 at 13:30 Glucose (Glutose) 22.5 gm Q15M PRN PO DECREASED GLUCOSE; Start 08/22/17 at 13: 30 Dextrose (D50w Syringe) 25 ml Q15M PRN IV DECREASED GLUCOSE; Start 08/22/17 at 13:30 Dextrose (D50w Syringe) 50 ml Q15M PRN IV DECREASED GLUCOSE; Start 08/22/17 at 13:30 Glucagon (Glucagen) 1 mg Q15M PRN IM DECREASED GLUCOSE; Start 08/22/17 at 13:30 Glucose (Glutose) 15 gm Q15M PRN BUCCAL DECREASED GLUCOSE; Start 08/22/17 at 13 :30 Sodium Hypochlorite (Dakin'S (Dilute 1/40%)) 1 applic BID IRR Last administered on 09/01/17 10:01; Admin Dose 1 APPLIC; Start 08/23/17 at 09:00 Metoprolol Tartrate (Lopressor) 50 mg BID GTB Last administered on 09/01/17 09:38; Admin Dose 50 MG; Start 08/24/17 at 21:00 Acetaminophen (Tylenol Tab) 500 mg Q4H PRN PO PAIN AND OR ELEVATED TEMP Last administered on 08/27/17 01:27; Admin Dose 500 MG; Start 08/25/17 at 12:00 Morphine Sulfate (morphine) 2 mg Q4H PRN IV PAIN LEVEL 4-6 Last administered on 08/31/17 15:03; Admin Dose 2 MG; Start 08/25/17 at 12:00 Lansoprazole 30 mg 30 mg DAILY@06 GTB Last administered on 09/01/17 06:46; Admin Dose 30 MG; Start 08/29/17 at 06:00 Vancomycin HCl/ Sodium Chloride (Vancocin/NS) 150 ml @ 75 mls/hr Q96H IVPB Last administered on 08/30/17 00:01; Admin Dose 75 MLS/HR; Start 08/29/17 at 23:00 Insulin Glargine (Lantus) 15 unit DAILY SC Last administered on 09/01/17 09: 40; Admin Dose 15 UNIT; Start 08/29/17 at 20:00 Tobramycin (Tobramycin Iv Per Pharmacy) TOBRAMYCIN PER PHARMACY NOTE XX ; Start 08/29/17 at 16:30 Insulin Aspart (Novolog Insulin Pen) (Adult SC Insulin - Mild Algorithm)... Q4 SC Last administered on 09/01/17 09:41; Admin Dose 1 UNIT; Start 08/31/17 at 16:00 Lisinopril (Zestril) 20 mg DAILY PO ; Start 09/02/17 at 09:00 LEILA GARCIA Sep 01, 2017 18:37
--- NOTE | 2017-09-03 12:42 | CONS ---
Date/Time of Note Date/Time of Note DATE: 09/03/17 TIME: 12:40 Assessment/Plan Assessment/Plan Additional Assessment/Plan 1. Sepsis due to PNA 2. Acute on chronic renal failure - with severe metabolic acidosis and acute uremic encephalopathy- pt is anuric, started on HD during this admission 3. AMS due to acute uremic encephalopathy + acute metabolic encephalopathy 3. H/o recent admission to [place] for renal failure 4.Ventilator dependent respiratory failure with tracheostomy. 5. HTN 6. H/o CVA with residual weakness 7.. IDDM 8. 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.,-will wait for pt to be more stable and platelets to stabilize before planning for intermediate HD and permacath, IV abx as per ID will follow up Dw Dr Adonay Nieto Consultation Date/Type/Reason Admit Date/Time Aug 20, 2017 at 17:03 Initial Consult Date 08/20/17 Type of Consultation: NEPHROLOGY Referring Provider: HUSSEIN ROSE 24 HR Interval Summary Free Text/Dictation Remains trach to vent, afebrile, no new events reported by staff,cont HD Subjective hx not possible: pt non-verbal Constitutional: requiring IVF, requiring O2 Exam/Review of Systems Vital Signs Vitals Vital Signs Date Time Temp Pulse Resp B/P Pulse Ox O2 Delivery O2 Flow Rate FiO2 09/03/17 11:47 98.0 79 18 128/57 98 09/03/17 09:40 45 09/01/17 21:00 Mechanical Ventilator Intake and Output 09/02/17 09/02/17 09/03/17 15:00 23:00 07:00 Intake Total 600 ml 682.5 ml 790 ml Output Total 3000 ml Balance -2400 ml 682.5 ml 790 ml Exam Constitutional: frail, non-verbal Respiratory: diminished breath sounds Cardiovascular: nl pulses, other (S1S2) Gastrointestinal: other (GT intact), soft Musculoskeletal: nl extremities to inspection Extremities: normal pulses Neurological: unresponsive Results Result Diagram: 09/03/17 0550 09/03/17 0550 Results 24 hrs Laboratory Tests Test 09/02/17 12:47 09/02/17 17:33 09/02/17 17:51 09/02/17 18:14 Bedside Glucose 119 62 L 141 101 Test 09/02/17 21:11 09/02/17 21:25 09/02/17 21:38 09/02/17 21:52 Bedside Glucose 81 81 98 Blood Gas Specimen Source Blood arterial Arterial Blood Date Drawn 09/02/2017 9:40:53 PM Arterial Blood pH (Temp corrected) 7.282 *L Arterial Blood pCO2 (Temp correct) 69.8 H Arterial Blood pO2 (Temp corrected) 75.7 L Arterial Blood HCO3 32.2 H Arterial Blood Base Excess 3.6 H Arterial Blood Oxygen Saturation 93.8 L Harsha Test ACCEPTAB Arterial Blood Gas Puncture Site Right Radial Arterial Blood Carboxyhemoglobin 0.5 Arterial Blood Methemoglobin 0.2 Blood Gas A-a O2 Differential 275.3 H Oxyhemoglobin Percent 93.1 Total Hemoglobin 12.4 Blood Gas Temperature 37.0 Blood Gas Respiration Rate 18.0 Blood Gas Actual Respiration Rate 20 Blood Gas Modality VENT - AC FiO2 60.0 Blood Gas Tidal Volume 450.0 Blood Gas Low PEEP Setting 5.0 Blood Gas Critical Value Read Back Vlad LEMON RN Blood Gas Notified Whom UP Blood Gas Notified Time 09/02/2017 9:55:51 PM Test 09/03/17 00:21 09/03/17 05:47 09/03/17 05:50 09/03/17 09:22 Bedside Glucose 174 141 159 White Blood Count 5.4 Red Blood Count 2.86 L Hemoglobin 8.2 L Hematocrit 26.3 L Mean Corpuscular Volume 92.0 Mean Corpuscular Hemoglobin 28.7 L Mean Corpuscular Hemoglobin Concent 31.2 L Red Cell Distribution Width 14.7 H Platelet Count 134 #L Mean Platelet Volume 11.3 H Neutrophils % 67.0 Lymphocytes % 23.8 Monocytes % 6.0 Eosinophils % 2.6 Basophils % 0.4 Nucleated Red Blood Cells % 0.0 Neutrophils # 3.6 Lymphocytes # 1.3 Monocytes # 0.3 Eosinophils # 0.1 Basophils # 0.0 Nucleated Red Blood Cells # 0.0 Sodium Level 137 Potassium Level 4.5 Chloride Level 99 Carbon Dioxide Level 30 Anion Gap 13 Blood Urea Nitrogen 51 H Creatinine 3.47 H Glucose Level 146 Calcium Level 7.5 L Medications Medications Current Medications Diagnostic Test (Pha) (Accu-Chek) 1 ea 02 XX Last administered on 08/31/17t 01 :33; Admin Dose 1 EA; Start 08/23/17 at 02:00 Miscellaneous Information 1 ea NOTE XX ; Start 08/22/17 at 13:30 Glucose (Glutose) 15 gm Q15M PRN PO DECREASED GLUCOSE; Start 08/22/17 at 13:30 Glucose (Glutose) 22.5 gm Q15M PRN PO DECREASED GLUCOSE; Start 08/22/17 at 13: 30 Dextrose (D50w Syringe) 25 ml Q15M PRN IV DECREASED GLUCOSE Last administered on 09/02/17 17:42; Admin Dose 25 ML; Start 08/22/17 at 13:30 Dextrose (D50w Syringe) 50 ml Q15M PRN IV DECREASED GLUCOSE; Start 08/22/17 at 13:30 Glucagon (Glucagen) 1 mg Q15M PRN IM DECREASED GLUCOSE; Start 08/22/17 at 13:30 Glucose (Glutose) 15 gm Q15M PRN BUCCAL DECREASED GLUCOSE; Start 08/22/17 at 13 :30 Sodium Hypochlorite (Dakin'S (Dilute 1/40%)) 1 applic BID IRR Last administered on 09/03/17 09:25; Admin Dose 1 APPLIC; Start 08/23/17 at 09:00 Metoprolol Tartrate (Lopressor) 50 mg BID GTB Last administered on 09/03/17 09:26; Admin Dose 50 MG; Start 08/24/17 at 21:00 Acetaminophen (Tylenol Tab) 500 mg Q4H PRN PO PAIN AND OR ELEVATED TEMP Last administered on 08/27/17 01:27; Admin Dose 500 MG; Start 08/25/17 at 12:00 Morphine Sulfate (morphine) 2 mg Q4H PRN IV PAIN LEVEL 4-6 Last administered on 09/02/17 21:49; Admin Dose 2 MG; Start 08/25/17 at 12:00 Lansoprazole 30 mg 30 mg DAILY@06 GTB Last administered on 09/03/17 05:44; Admin Dose 30 MG; Start 08/29/17 at 06:00 Vancomycin HCl/ Sodium Chloride (Vancocin/NS) 150 ml @ 75 mls/hr Q96H IVPB Last administered on 09/03/17 00:13; Admin Dose 75 MLS/HR; Start 08/29/17 at 23:00 Insulin Glargine (Lantus) 15 unit DAILY SC Last administered on 09/03/17 09: 37; Admin Dose 15 UNIT; Start 08/29/17 at 20:00 Tobramycin (Tobramycin Iv Per Pharmacy) TOBRAMYCIN PER PHARMACY NOTE XX ; Start 08/29/17 at 16:30 Insulin Aspart (Novolog Insulin Pen) (Adult SC Insulin - Mild Algorithm)... Q4 SC Last administered on 09/03/17 09:37; Admin Dose 1 UNIT; Start 08/31/17 at 16:00 Lisinopril (Zestril) 20 mg BID PO Last administered on 09/03/17 09:25; Admin Dose 20 MG; Start 09/02/17 at 21:00 Clonidine (Catapres) 0.1 mg Q6H PRN GTB ELEVATED SYSTOLIC BP Last administered on 09/02/17 21:48; Admin Dose 0.1 MG; Start 09/02/17 at 21:30 LEILA GARCIA Sep 03, 2017 12:42
[2017-09-03] MEDS: morphine 2 MG INJ IV PRN (20:38)
[2017-09-04] VITALS (24 sets, daily range): BP systolic 99–174; BP diastolic 54–100; PULSE 71–97; RESP 18–24
--- NOTE | 2017-09-04 00:56 | CONS ---
Date/Time of Note Date/Time of Note DATE: 08/21/17 TIME: 12:15 Assessment/Plan Assessment/Plan Additional Assessment/Plan 1. Acute on Chronic Renal failure 2/2 Prerenal azotemia with ATN 2. AMS due to acute metabolic encephalopathy + uremic encephalopathy 3. Severe metabolic acidosis 4. HTN 5. H/o CVA with residual weakness 6. IDDM Plan: Sodium bicarboante 100mEQ in D5 W at 50 cc /hr IV abx Zosyn and vancomycin as per pharamcy to dose AM labs pt was recently admitted to [facility] for similar reason and Pt family declined for HD. Staff is able to get in contact with tyra Emery at [phone]. Dr Nieto was provided with son's contact info, dw with MD- will dw further discuss goals of care with family Dw Dr Adonay Nieto Consultation Date/Type/Reason Admit Date/Time Initial Consult Date 08/20/17 Type of Consultation: NEPHROLOGY Referring Provider: HUSSEIN ROSE 24 HR Interval Summary Subjective hx not possible: pt non-verbal, pt critical Constitutional: requiring IVF, requiring O2 Exam/Review of Systems Vital Signs Vitals Vital Signs Date Time Temp Pulse Resp B/P Pulse Ox O2 Delivery O2 Flow Rate FiO2 08/21/17 12:08 82 16 129/72 95 08/21/17 11:00 50 08/21/17 10:57 Mechanical Ventilator 08/21/17 07:21 8.0 08/21/17 06:00 96.0 Exam Constitutional: alert, non-verbal Respiratory: diminished breath sounds Cardiovascular: other (s1s2) Gastrointestinal: soft Musculoskeletal: muscle weakness Extremities: edema Neurological: lethargic Results Result Diagram: 08/21/17 0530 08/21/17 0530 Results 24 hrs Laboratory Tests Test 08/20/17 15:00 08/20/17 17:17 08/20/17 17:43 08/21/17 05:30 White Blood Count 5.4 # 5.3 Red Blood Count 2.57 #L 2.44 L Hemoglobin 7.3 #L 6.8 *L Hematocrit 22.7 #L 21.6 L Mean Corpuscular Volume 88.3 88.5 Mean Corpuscular Hemoglobin 28.4 L 27.9 L Mean Corpuscular Hemoglobin Concent 32.2 31.5 L Red Cell Distribution Width 17.5 H 17.9 H Platelet Count 58 #L 55 L Mean Platelet Volume 11.9 #H 13.1 H Neutrophils % 76.1 78.3 H Lymphocytes % 17.4 15.1 Monocytes % 5.4 5.1 Eosinophils % 0.7 1.1 Basophils % 0.0 0.0 Nucleated Red Blood Cells % 0.0 0.0 Neutrophils # 4.1 4.2 Lymphocytes # 0.9 0.8 Monocytes # 0.3 0.3 Eosinophils # 0.0 0.1 Basophils # 0.0 0.0 Nucleated Red Blood Cells # 0.0 0.0 Prothrombin Time 14.2 Prothrombin Time Ratio 1.1 INR International Normalized Ratio 1.10 Activated Partial Thromboplast Time 33.8 Sodium Level 131 L 132 L Potassium Level 4.1 3.8 Chloride Level 100 102 Carbon Dioxide Level 16 L 14 L Anion Gap 19 H 20 H Blood Urea Nitrogen 197 H 192 H Creatinine 7.54 H 7.35 H Glucose Level 98 102 Calcium Level 7.0 L 6.9 L Total Bilirubin 0.0 L 0.0 L Direct Bilirubin 0.00 0.00 Indirect Bilirubin 0.0 0.0 Aspartate Amino Transf (AST/SGOT) 22 20 Alanine Aminotransferase (ALT/SGPT) 36 32 Alkaline Phosphatase 115 109 Troponin I 0.147 *H B-Type Natriuretic Peptide 37469 H Total Protein 7.1 6.8 Albumin 2.9 L 2.8 L Globulin 4.20 H 4.00 H Albumin/Globulin Ratio 0.69 0.70 Blood Gas Specimen Source Blood arterial Arterial Blood Date Drawn 08/20/2017 5:38:24 PM Arterial Blood pH (Temp corrected) 7.312 L Arterial Blood pCO2 (Temp correct) 32.8 L Arterial Blood pO2 (Temp corrected) 53.2 *L Arterial Blood HCO3 16.2 L Arterial Blood Base Excess -9.2 L Arterial Blood Oxygen Saturation 84.9 L Harsha Test ACCEPTAB Arterial Blood Gas Puncture Site Right Radial Arterial Blood Carboxyhemoglobin 0.1 Arterial Blood Methemoglobin 0.1 Blood Gas A-a O2 Differential 266.4 H Oxyhemoglobin Percent 84.7 L Total Hemoglobin 6.5 L Blood Gas Temperature 37.0 Blood Gas Respiration Rate 14.0 Blood Gas Actual Respiration Rate 18 Blood Gas Modality VENT - AC FiO2 50.0 Blood Gas Tidal Volume 500.0 Blood Gas Low PEEP Setting 5.0 Blood Gas Critical Value Read Back MD SUSU Blood Gas Notified Whom [place] Blood Gas Notified Time 08/20/2017 5:45:45 PM Lactic Acid Level 0.7 Uric Acid 5.0 Test 08/21/17 05:40 08/21/17 11:35 Blood Gas Specimen Source Blood arterial Blood arterial Arterial Blood Date Drawn 08/21/2017 5:30:20 AM 08/21/2017 11:49:41 AM Arterial Blood pH (Temp corrected) 7.320 L 7.309 L Arterial Blood pCO2 (Temp correct) 27.8 L 29.8 L Arterial Blood pO2 (Temp corrected) 69.4 L 69.0 L Arterial Blood HCO3 14.0 L 14.6 L Arterial Blood Base Excess -10.9 L -10.6 L Arterial Blood Oxygen Saturation 91.5 L 91.1 L Harsha Test ACCEPTAB ACCEPTAB Arterial Blood Gas Puncture Site Right Radial Right Radial Arterial Blood Carboxyhemoglobin 0.3 0.3 Arterial Blood Methemoglobin 0.3 0.4 Blood Gas A-a O2 Differential 255.8 H 254.0 H Oxyhemoglobin Percent 91.0 L 90.5 L Total Hemoglobin 8.1 L 7.8 L Blood Gas Temperature 37.0 37.0 Blood Gas Respiration Rate 14.0 14.0 Blood Gas Actual Respiration Rate 26 14 Blood Gas Modality VENT - AC VENT - AC FiO2 50.0 50.0 Blood Gas Tidal Volume 500.0 500.0 Blood Gas Mean Airway Pressure 13 Blood Gas Low PEEP Setting 5.0 5.0 Blood Gas Inspiratory Pressure 29.0 Blood Gas Critical Value Read Back Kristie BARROS Blood Gas Notified Whom CLARK BARRERA Blood Gas Notified Time 08/21/2017 5:57:06 AM 08/21/2017 11:54:38 AM Medications Medications Current Medications Sodium Bicarbonate/ Dextrose (Na Bicarb/D5W) 1,000 ml @ 50 mls/hr Q20H IV Last administered on 08/20/17t 20:30; Admin Dose 50 MLS/HR; Start 08/20/17 at 20 :30 LEILA GARCIA Aug 21, 2017 12:26
[2017-09-04] MEDS: INSULIN ASPART [NOVOLOG] 3 ML PEN SC SCH ×6 (01:00→21:00)
[2017-09-04] MEDS: ACCU-CHEK XX SCH (02:00)
--- NOTE | 2017-09-04 05:17 | PN ---
DATE: 09/03/2017 HISTORY OF PRESENT ILLNESS: The patient's condition remains unchanged. He remains completely unres ponsive due to anoxic brain injury. The patient, however, has remained hemodynamically stable. PHYSICAL EXAMINATION: GENERAL: Elderly male on ventilator via tracheostomy, currently in no distress, remains unresponsiv e. VITAL SIGNS: Temperature 98.8 degrees Fahrenheit, heart rate of 88 per minute, blood pressure is 12 0/62, O2 sat 98%. Urine output is fair. Current ventilator settings are AC of 24, tidal volume 450 , PEEP of 5, 45% FIO2. HEENT: Supple neck, no JVD, no lymphadenopathy, midline trachea, no thyromegaly. Tracheostomy in p lace with clean insertion site. Pupils are small bilaterally. CHEST: Diminished breath sounds bilaterally with scattered crackles. HEART: S1, S2 audible. No murmurs, regular rhythm. ABDOMEN: Soft. G-tube in place. Bowel sounds audible. EXTREMITIES: No edema. The patient does have contractures involving all 4 extremities. NEUROLOGIC: Patient remains unresponsive. LABORATORY DATA: White count is 5.4, hemoglobin 8.2, platelet count of 134. Sodium 137, potassium 4.5, chloride 99, bicarbonate 30, BUN 51, creatinine 3.4. MEDICATIONS: Reviewed. The patient is currently on: 1. Tobramycin 100 mg IV post-dialysis . 2. Vancomycin 750 mg IV q. 96 hours. 3. Acetaminophen on a p.r.n. basis. 4. Tube feeding via G-tube. 5. DuoNeb q. 6 hours. 6. Sliding scale insulin. 7. Lantus insulin 15 units daily. 8. Prevacid 30 mg daily. 9. Zestril 20 mg b.i.d. 10. Metoprolol 50 mg b.i.d. 11. Morphine on a p.r.n. basis. 12. Vancomycin intravenously, being dosed by the pharmacy. ASSESSMENT: 1. Patient admitted with history of chronic respiratory failure which, is ventilator dependent with severe bilateral pneumonia. Chest x-ray from yesterday is not showing any interval improvement with diffuse bilateral infiltrates. 2. Persistent hypoxemia requiring fairly high FIO2. 3. History of severe anoxic brain injury. 4. Hypertension. 5. Diabetes. 6. Anemia. 7. Renal insufficiency. RECOMMENDATIONS: Continue current supportive care. Prognosis is very poor on account of multiple c omorbidities. Dictated By: ODETTE BARBA/JAMA Conf#: [id number] DID#: [id number]
[2017-09-04] MEDS: LANSOPRAZOLE 30 MG CAP GTB SCH (05:22)
[2017-09-04] MEDS: SODIUM HYPOCHLORITE 1/40% 1L IRRIG IRR SCH ×2 (08:58→21:17)
[2017-09-04] MEDS: METOPROLOL 50 MG TAB GTB SCH ×2 (08:58→21:00)
[2017-09-04] MEDS: LISINOPRIL 20 MG TAB PO SCH ×2 (08:59→21:00)
[2017-09-04] MEDS: INSULIN GLARGINE [LANtus] 3 ML PEN SC SCH (09:01)
--- NOTE | 2017-09-04 11:56 | CONS ---
Date/Time of Note Date/Time of Note DATE: 09/04/17 TIME: 11:54 Assessment/Plan Assessment/Plan Additional Assessment/Plan Ventilator setting; AC of 24, tidal volume 450, PEEP of 5, 50% FiO2. Assessment and recommendations; 1. Patient admitted with severe bilateral pneumonia currently on appropriate broad-spectrum antibiotic coverage. 2. Chronic respiratory failure. 3. Advanced dementia. 4. Hypertension. 5. Anemia. 6. Chronic renal insufficiency. Continue current supportive care. Prognosis is poor on account of multiple comorbidities. Consultation Date/Type/Reason Admit Date/Time Aug 20, 2017 at 17:03 Initial Consult Date 08/20/17 Type of Consultation: Pulmonary Referring Provider: HUSSEIN ROSE 24 HR Interval Summary Free Text/Dictation Patient's condition remains stable. Remains chronically ventilator dependent. Patient has advanced anoxic brain injury and is unresponsive. General exam; elderly male, on ventilator via tracheostomy, unresponsive, currently in no distress. Exam/Review of Systems Vital Signs Vitals Vital Signs Date Time Temp Pulse Resp B/P Pulse Ox O2 Delivery O2 Flow Rate FiO2 09/04/17 09:40 92 24 64 50 09/04/17 08:22 98.0 154/69 09/01/17 21:00 Mechanical Ventilator Intake and Output 09/03/17 09/03/17 09/04/17 15:00 23:00 07:00 Intake Total 580 ml 740 ml Balance 580 ml 740 ml Exam HEENT exam; supple neck, tracheostomy in place. No neck masses. No lymphadenopathy. Chest exam; scattered crackles bilaterally. S1-S2 audible, no murmurs. Abdomen exam; soft, G-tube in place. Bowel sounds audible. No organomegaly. Extremity exam; no peripheral edema. 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 Results Result Diagram: 09/03/17 0550 09/03/17 0550 Results 24 hrs Laboratory Tests Test 09/03/17 13:23 09/03/17 17:10 09/03/17 20:43 09/03/17 22:36 Bedside Glucose 136 104 96 98 Test 09/04/17 02:01 09/04/17 05:20 09/04/17 08:56 Bedside Glucose 121 126 139 Medications Medications Current Medications Diagnostic Test (Pha) (Accu-Chek) 1 ea 02 XX Last administered on 08/31/17t 01 :33; Admin Dose 1 EA; Start 08/23/17 at 02:00 Miscellaneous Information 1 ea NOTE XX ; Start 08/22/17 at 13:30 Glucose (Glutose) 15 gm Q15M PRN PO DECREASED GLUCOSE; Start 08/22/17 at 13:30 Glucose (Glutose) 22.5 gm Q15M PRN PO DECREASED GLUCOSE; Start 08/22/17 at 13: 30 Dextrose (D50w Syringe) 25 ml Q15M PRN IV DECREASED GLUCOSE Last administered on 09/02/17 17:42; Admin Dose 25 ML; Start 08/22/17 at 13:30 Dextrose (D50w Syringe) 50 ml Q15M PRN IV DECREASED GLUCOSE; Start 08/22/17 at 13:30 Glucagon (Glucagen) 1 mg Q15M PRN IM DECREASED GLUCOSE; Start 08/22/17 at 13:30 Glucose (Glutose) 15 gm Q15M PRN BUCCAL DECREASED GLUCOSE; Start 08/22/17 at 13 :30 Sodium Hypochlorite (Dakin'S (Dilute 1/40%)) 1 applic BID IRR Last administered on 09/04/17 08:58; Admin Dose 1 APPLIC; Start 08/23/17 at 09:00 Metoprolol Tartrate (Lopressor) 50 mg BID GTB Last administered on 09/04/17 08:58; Admin Dose 50 MG; Start 08/24/17 at 21:00 Acetaminophen (Tylenol Tab) 500 mg Q4H PRN PO PAIN AND OR ELEVATED TEMP Last administered on 08/27/17 01:27; Admin Dose 500 MG; Start 08/25/17 at 12:00 Morphine Sulfate (morphine) 2 mg Q4H PRN IV PAIN LEVEL 4-6 Last administered on 09/03/17 20:38; Admin Dose 2 MG; Start 08/25/17 at 12:00 Lansoprazole 30 mg 30 mg DAILY@06 GTB Last administered on 09/04/17 05:22; Admin Dose 30 MG; Start 08/29/17 at 06:00 Vancomycin HCl/ Sodium Chloride (Vancocin/NS) 150 ml @ 75 mls/hr Q96H IVPB Last administered on 09/03/17 00:13; Admin Dose 75 MLS/HR; Start 08/29/17 at 23:00 Insulin Glargine (Lantus) 15 unit DAILY SC Last administered on 09/04/17 09: 01; Admin Dose 15 UNIT; Start 08/29/17 at 20:00 Tobramycin (Tobramycin Iv Per Pharmacy) TOBRAMYCIN PER PHARMACY NOTE XX ; Start 08/29/17 at 16:30 Insulin Aspart (Novolog Insulin Pen) (Adult SC Insulin - Mild Algorithm)... Q4 SC Last administered on 09/03/17 09:37; Admin Dose 1 UNIT; Start 08/31/17 at 16:00 Lisinopril (Zestril) 20 mg BID PO Last administered on 09/04/17 08:59; Admin Dose 20 MG; Start 09/02/17 at 21:00 Clonidine (Catapres) 0.1 mg Q6H PRN GTB ELEVATED SYSTOLIC BP Last administered on 09/02/17 21:48; Admin Dose 0.1 MG; Start 09/02/17 at 21:30 ODETTE MCKEON Sep 04, 2017 11:56
--- NOTE | 2017-09-04 12:41 | PN ---
Date/Time of Note Date/Time of Note DATE: 09/04/17 TIME: 12:41 Assessment/Plan VTE Prophylaxis VTE Prophylaxis Intervention: other Lines/Catheters IV Catheter Type (from Nrs): PICC Line Central line still needed: Yes Urinary Cath still in place: No Assessment/Plan Chief Complaint/Hosp Course -Acute on chronic CKD. Continue hemodialysis. Dr. Nieto is following in nephrology consultation. -Ventilator dependent respiratory failure with tracheostomy. -Pulmonary edema versus multifocal pneumonia, continue broad-spectrum antibiotics, Dr Hill is following in infection disease consultation -Positive troponin in the setting of renal disease, Dr. Zuniga is following in cardiology consultation -Acute metabolic encephalopathy -Anemia, s/p blood transfusion, f/up on stool for OB, continue to monitor hemoglobin and hematocrit -DM, continue Lantus, NovoLog per sliding scale. -Dysphagia with PEG -Sacral wound Problems: Subjective 24 Hr Interval Summary Free Text/Dictation Patient has no complaints Exam/Review of Systems Vital Signs Vitals Vital Signs Date Time Temp Pulse Resp B/P Pulse Ox O2 Delivery O2 Flow Rate FiO2 09/04/17 12:28 97 09/04/17 11:20 24 95 50 09/04/17 08:22 98.0 154/69 09/01/17 21:00 Mechanical Ventilator Intake and Output 09/03/17 09/03/17 09/04/17 15:00 23:00 07:00 Intake Total 580 ml 740 ml Balance 580 ml 740 ml Exam Constitutional: well developed Head: atraumatic, normocephalic Neck: supple Respiratory: clear to auscultation Cardiovascular: regular rate and rhythm Gastrointestinal: non-tender, soft Extremities: normal pulses Results Result Diagram: 09/03/17 0550 09/03/17 0550 Results 24 hrs Laboratory Tests Test 09/03/17 13:23 09/03/17 17:10 09/03/17 20:43 09/03/17 22:36 Bedside Glucose 136 104 96 98 Test 09/04/17 02:01 09/04/17 05:20 09/04/17 08:56 Bedside Glucose 121 126 139 Medications Medications Current Medications Diagnostic Test (Pha) (Accu-Chek) 1 ea 02 XX Last administered on 08/31/17t 01 :33; Admin Dose 1 EA; Start 08/23/17 at 02:00 Miscellaneous Information 1 ea NOTE XX ; Start 08/22/17 at 13:30 Glucose (Glutose) 15 gm Q15M PRN PO DECREASED GLUCOSE; Start 08/22/17 at 13:30 Glucose (Glutose) 22.5 gm Q15M PRN PO DECREASED GLUCOSE; Start 08/22/17 at 13: 30 Dextrose (D50w Syringe) 25 ml Q15M PRN IV DECREASED GLUCOSE Last administered on 09/02/17 17:42; Admin Dose 25 ML; Start 08/22/17 at 13:30 Dextrose (D50w Syringe) 50 ml Q15M PRN IV DECREASED GLUCOSE; Start 08/22/17 at 13:30 Glucagon (Glucagen) 1 mg Q15M PRN IM DECREASED GLUCOSE; Start 08/22/17 at 13:30 Glucose (Glutose) 15 gm Q15M PRN BUCCAL DECREASED GLUCOSE; Start 08/22/17 at 13 :30 Sodium Hypochlorite (Dakin'S (Dilute 1/40%)) 1 applic BID IRR Last administered on 09/04/17 08:58; Admin Dose 1 APPLIC; Start 08/23/17 at 09:00 Metoprolol Tartrate (Lopressor) 50 mg BID GTB Last administered on 09/04/17 08:58; Admin Dose 50 MG; Start 08/24/17 at 21:00 Acetaminophen (Tylenol Tab) 500 mg Q4H PRN PO PAIN AND OR ELEVATED TEMP Last administered on 08/27/17 01:27; Admin Dose 500 MG; Start 08/25/17 at 12:00 Morphine Sulfate (morphine) 2 mg Q4H PRN IV PAIN LEVEL 4-6 Last administered on 09/03/17 20:38; Admin Dose 2 MG; Start 08/25/17 at 12:00 Lansoprazole 30 mg 30 mg DAILY@06 GTB Last administered on 09/04/17 05:22; Admin Dose 30 MG; Start 08/29/17 at 06:00 Vancomycin HCl/ Sodium Chloride (Vancocin/NS) 150 ml @ 75 mls/hr Q96H IVPB Last administered on 09/03/17 00:13; Admin Dose 75 MLS/HR; Start 08/29/17 at 23:00 Insulin Glargine (Lantus) 15 unit DAILY SC Last administered on 09/04/17 09: 01; Admin Dose 15 UNIT; Start 08/29/17 at 20:00 Tobramycin (Tobramycin Iv Per Pharmacy) TOBRAMYCIN PER PHARMACY NOTE XX ; Start 08/29/17 at 16:30 Insulin Aspart (Novolog Insulin Pen) (Adult SC Insulin - Mild Algorithm)... Q4 SC Last administered on 09/03/17 09:37; Admin Dose 1 UNIT; Start 08/31/17 at 16:00 Lisinopril (Zestril) 20 mg BID PO Last administered on 09/04/17 08:59; Admin Dose 20 MG; Start 09/02/17 at 21:00 Clonidine (Catapres) 0.1 mg Q6H PRN GTB ELEVATED SYSTOLIC BP Last administered on 09/02/17 21:48; Admin Dose 0.1 MG; Start 09/02/17 at 21:30 HUSSEIN ROSE Sep 04, 2017 12:41
--- NOTE | 2017-09-04 12:44 | CONS ---
Date/Time of Note Date/Time of Note DATE: 09/04/17 TIME: 12:42 Assessment/Plan Assessment/Plan Additional Assessment/Plan . Positive troponin status. Significant in the setting of renal failure-No sig uptrend - no cp now, no intervention planned. STABLE. 2. Abnormal electrocardiogram, nonspecific ST-T abnormalities.- stable overall. No ectopy on tele. 3. Hypertension- labile - no CP, will allow for now 4. Respiratory failure, chronic - resp team follows. BETTER overall. 5. Renal failure, acute on chronic. 6. Dysphagia, status post G-tube. 7. Anemia-ongoing - replace as needed 8. Thrombocytopenia-ongoing 9. Encephalopathy. 10. 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 11. Diabetes mellitus. 12. Hypokalemia 14. Cardiomyopathy-depressed EF 40% 15. PNA - rx with anti-Bx now Consultation Date/Type/Reason Admit Date/Time Aug 20, 2017 at 17:03 Initial Consult Date 08/20/17 Type of Consultation: Pulmonary Referring Provider: HUSSEIN ROSE 24 HR Interval Summary Free Text/Dictation NO acute events - BP in good range - no CP now - doubt ischemia ROS: No fever, no chills, no nausea, no vomiting, no diarrhea/constipation No recent weight changes No chest pain, no PND, no orthopnea No dizziness, blurred vision No thirst, no heat or cold intolerance Exam/Review of Systems Vital Signs Vitals Vital Signs Date Time Temp Pulse Resp B/P Pulse Ox O2 Delivery O2 Flow Rate FiO2 09/04/17 12:28 97 09/04/17 11:20 24 95 50 09/04/17 08:22 98.0 154/69 09/01/17 21:00 Mechanical Ventilator Intake and Output 09/03/17 09/03/17 09/04/17 15:00 23:00 07:00 Intake Total 580 ml 740 ml Balance 580 ml 740 ml Exam General: WN/WD/NAD, AOx comfortable HEENT: Unicetric/atraumatic/EOMI (does not follow commands) NECK: JVD elevated, no thyromegaly Lymph: no lymphadenopathy HEART: regular with no S3, II/ systolic murmur at apex LUNGS: Coarse sounds ABD: soft, NT, ND, +BS : Intact Neuro: non focal SKIN: chronic changes EXT: trace edema Results Result Diagram: 10/14/17 0550 09/03/17 0550 Results 24 hrs Laboratory Tests Test 09/03/17 13:23 09/03/17 17:10 09/03/17 20:43 09/03/17 22:36 Bedside Glucose 136 104 96 98 Test 09/04/17 02:01 09/04/17 05:20 09/04/17 08:56 Bedside Glucose 121 126 139 Medications Medications Current Medications Diagnostic Test (Pha) (Accu-Chek) 1 ea 02 XX Last administered on 08/31/17 01 :33; Admin Dose 1 EA; Start 08/23/17 at 02:00 Miscellaneous Information 1 ea NOTE XX ; Start 08/22/17 at 13:30 Glucose (Glutose) 15 gm Q15M PRN PO DECREASED GLUCOSE; Start 08/22/17 at 13:30 Glucose (Glutose) 22.5 gm Q15M PRN PO DECREASED GLUCOSE; Start 08/22/17 at 13: 30 Dextrose (D50w Syringe) 25 ml Q15M PRN IV DECREASED GLUCOSE Last administered on 09/02/17 17:42; Admin Dose 25 ML; Start 08/22/17 at 13:30 Dextrose (D50w Syringe) 50 ml Q15M PRN IV DECREASED GLUCOSE; Start 08/22/17 at 13:30 Glucagon (Glucagen) 1 mg Q15M PRN IM DECREASED GLUCOSE; Start 08/22/17 at 13:30 Glucose (Glutose) 15 gm Q15M PRN BUCCAL DECREASED GLUCOSE; Start 08/22/17 at 13 :30 Sodium Hypochlorite (Dakin'S (Dilute 1/40%)) 1 applic BID IRR Last administered on 09/04/17 08:58; Admin Dose 1 APPLIC; Start 08/23/17 at 09:00 Metoprolol Tartrate (Lopressor) 50 mg BID GTB Last administered on 09/04/17 08:58; Admin Dose 50 MG; Start 08/24/17 at 21:00 Acetaminophen (Tylenol Tab) 500 mg Q4H PRN PO PAIN AND OR ELEVATED TEMP Last administered on 08/27/17 01:27; Admin Dose 500 MG; Start 08/25/17 at 12:00 Morphine Sulfate (morphine) 2 mg Q4H PRN IV PAIN LEVEL 4-6 Last administered on 09/03/17 20:38; Admin Dose 2 MG; Start 08/25/17 at 12:00 Lansoprazole 30 mg 30 mg DAILY@06 GTB Last administered on 09/04/17 05:22; Admin Dose 30 MG; Start 08/29/17 at 06:00 Vancomycin HCl/ Sodium Chloride (Vancocin/NS) 150 ml @ 75 mls/hr Q96H IVPB Last administered on 09/03/17 00:13; Admin Dose 75 MLS/HR; Start 08/29/17 at 23:00 Insulin Glargine (Lantus) 15 unit DAILY SC Last administered on 09/04/17 09: 01; Admin Dose 15 UNIT; Start 08/29/17 at 20:00 Tobramycin (Tobramycin Iv Per Pharmacy) TOBRAMYCIN PER PHARMACY NOTE XX ; Start 08/29/17 at 16:30 Insulin Aspart (Novolog Insulin Pen) (Adult SC Insulin - Mild Algorithm)... Q4 SC Last administered on 09/03/17 09:37; Admin Dose 1 UNIT; Start 08/31/17 at 16:00 Lisinopril (Zestril) 20 mg BID PO Last administered on 09/04/17 08:59; Admin Dose 20 MG; Start 09/02/17 at 21:00 Clonidine (Catapres) 0.1 mg Q6H PRN GTB ELEVATED SYSTOLIC BP Last administered on 09/02/17 21:48; Admin Dose 0.1 MG; Start 09/02/17 at 21:30 ABE SILVA MD Sep 04, 2017 12:43
--- NOTE | 2017-09-04 13:19 | CONS ---
Date/Time of Note Date/Time of Note DATE: 09/04/17 TIME: 13:15 Assessment/Plan Assessment/Plan Additional Assessment/Plan 1. Sepsis due to PNA 2. Acute on chronic renal failure - with severe metabolic acidosis and acute uremic encephalopathy- pt is anuric, started on HD during this admission 3. AMS due to acute uremic encephalopathy + acute metabolic encephalopathy 3. H/o recent admission to [place] for renal failure 4.Ventilator dependent respiratory failure with tracheostomy. 5. HTN 6. H/o CVA with residual weakness 7.. IDDM 8. 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 Subjective hx not possible: pt non-verbal Constitutional: requiring IVF, requiring O2 Exam/Review of Systems Vital Signs Vitals Vital Signs Date Time Temp Pulse Resp B/P Pulse Ox O2 Delivery O2 Flow Rate FiO2 09/04/17 13:00 84 24 96 50 09/04/17 12:56 98.0 174/100 09/01/17 21:00 Mechanical Ventilator Intake and Output 09/03/17 09/03/17 09/04/17 15:00 23:00 07:00 Intake Total 580 ml 740 ml Balance 580 ml 740 ml Exam Constitutional: non-verbal Respiratory: diminished breath sounds Cardiovascular: other (s1s2) Gastrointestinal: non-tender, other (gt intact), soft Musculoskeletal: muscle weakness Extremities: edema (BUE, BLE - 1+ edema) Neurological: unresponsive Results Result Diagram: 09/03/17 0550 09/03/17 0550 Results 24 hrs Laboratory Tests Test 09/03/17 13:23 09/03/17 17:10 09/03/17 20:43 09/03/17 22:36 Bedside Glucose 136 104 96 98 Test 09/04/17 02:01 09/04/17 05:20 09/04/17 08:56 09/04/17 12:30 Bedside Glucose 121 126 139 117 Medications Medications Current Medications Diagnostic Test (Pha) (Accu-Chek) 1 ea 02 XX Last administered on 08/31/17 01 :33; Admin Dose 1 EA; Start 08/23/17 at 02:00 Miscellaneous Information 1 ea NOTE XX ; Start 08/22/17 at 13:30 Glucose (Glutose) 15 gm Q15M PRN PO DECREASED GLUCOSE; Start 08/22/17 at 13:30 Glucose (Glutose) 22.5 gm Q15M PRN PO DECREASED GLUCOSE; Start 08/22/17 at 13: 30 Dextrose (D50w Syringe) 25 ml Q15M PRN IV DECREASED GLUCOSE Last administered on 09/02/17 17:42; Admin Dose 25 ML; Start 08/22/17 at 13:30 Dextrose (D50w Syringe) 50 ml Q15M PRN IV DECREASED GLUCOSE; Start 08/22/17 at 13:30 Glucagon (Glucagen) 1 mg Q15M PRN IM DECREASED GLUCOSE; Start 08/22/17 at 13:30 Glucose (Glutose) 15 gm Q15M PRN BUCCAL DECREASED GLUCOSE; Start 08/22/17 at 13 :30 Sodium Hypochlorite (Dakin'S (Dilute 1/40%)) 1 applic BID IRR Last administered on 09/04/17 08:58; Admin Dose 1 APPLIC; Start 08/23/17 at 09:00 Metoprolol Tartrate (Lopressor) 50 mg BID GTB Last administered on 09/04/17 08:58; Admin Dose 50 MG; Start 08/24/17 at 21:00 Acetaminophen (Tylenol Tab) 500 mg Q4H PRN PO PAIN AND OR ELEVATED TEMP Last administered on 08/27/17 01:27; Admin Dose 500 MG; Start 08/25/17 at 12:00 Morphine Sulfate (morphine) 2 mg Q4H PRN IV PAIN LEVEL 4-6 Last administered on 09/03/17 20:38; Admin Dose 2 MG; Start 08/25/17 at 12:00 Lansoprazole 30 mg 30 mg DAILY@06 GTB Last administered on 10/15/17at 05:22; Admin Dose 30 MG; Start 08/29/17 at 06:00 Vancomycin HCl/ Sodium Chloride (Vancocin/NS) 150 ml @ 75 mls/hr Q96H IVPB Last administered on 09/03/17 00:13; Admin Dose 75 MLS/HR; Start 08/29/17 at 23:00 Insulin Glargine (Lantus) 15 unit DAILY SC Last administered on 09/04/17 09: 01; Admin Dose 15 UNIT; Start 08/29/17 at 20:00 Tobramycin (Tobramycin Iv Per Pharmacy) TOBRAMYCIN PER PHARMACY NOTE XX ; Start 08/29/17 at 16:30 Insulin Aspart (Novolog Insulin Pen) (Adult SC Insulin - Mild Algorithm)... Q4 SC Last administered on 09/03/17 09:37; Admin Dose 1 UNIT; Start 08/31/17 at 16:00 Lisinopril (Zestril) 20 mg BID PO Last administered on 09/04/17 08:59; Admin Dose 20 MG; Start 09/02/17 at 21:00 Clonidine (Catapres) 0.1 mg Q6H PRN GTB ELEVATED SYSTOLIC BP Last administered on 09/02/17 21:48; Admin Dose 0.1 MG; Start 09/02/17 at 21:30 LEILA GARCIA Sep 04, 2017 13:19
--- NOTE | 2017-09-04 14:40 | CONS ---
Date/Time of Note Date/Time of Note DATE: 09/04/17 TIME: 14:38 Assessment/Plan Assessment/Plan Chief Complaint/Hosp Course ID PROGRESS NOTE CURRENT ABX: DAY #16 => Vanco IV + Tobra IV #7 s/p Zosyn 08/20 - 08/29 24H INTERVAL SUMMARY * Noncommunicative, lethargic, looks comfortable on the Vent. No fevers, VSS Physical Exam Physical Exam Constitutional: VSS, NAD This is a chronically ill-appearing, elderly man, encephalopathic HEENT: Unremarkable Neck: Trach secure to Vent Respiratory: Equal chest rise bilaterally, vented Cardiovascular: nl pulses, regular rate and rhythm Gastrointestinal: Soft, NT Extremities: Warm, mild dependent edema ID ASSESSMENT 81 yo M w/PMHx CVA w/residual weakness, dysphagia-> peg, VDRF, admit with: 1. Status post septic shock. 2. Acute on chronic respiratory failure . 3. Healthcare-associated pneumonia. * RESPIRATORY CULTURE Final Organism 1 SERRATIA LIQUEFACIENS Organism 2 PSEUDOMONAS AERUGINOSA 4. Sacral decubitus IV * WOUND CULTURE Final Organism 1 MORGANELLA MORGANII Organism 2 PSEUDOMONAS AERUGINOSA Organism 3 PROTEUS MIRABILIS 5. 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 6. Diabetes. 7. Chronic encephalopathy. (- )MRSA Nares ABX ALLERGIES: KNDA CURRENT ABX: DAY #16 => Vanco IV + Tobra IV #7 s/p Zosyn 08/20 - 08/29 ID RECOMMENDATIONS 1. Continue ABX over the weekend -> anticipate DC ABX Tuesday and DC To SNF OFF ABX . Problems: Consultation Date/Type/Reason Admit Date/Time Aug 20, 2017 at 17:03 Initial Consult Date 08/20/17 Type of Consultation: ID Referring Provider: HUSSEIN ROSE Exam/Review of Systems Vital Signs Vitals Vital Signs Date Time Temp Pulse Resp B/P Pulse Ox O2 Delivery O2 Flow Rate FiO2 09/04/17 13:00 84 24 96 50 09/04/17 12:56 98.0 174/100 09/01/17 21:00 Mechanical Ventilator Intake and Output 09/03/17 09/03/17 09/04/17 15:00 23:00 07:00 Intake Total 580 ml 740 ml Balance 580 ml 740 ml Results Result Diagram: 09/03/17 0550 09/03/17 0550 Results 24 hrs Laboratory Tests Test 10/14/17 17:10 09/03/17 20:43 09/03/17 22:36 09/04/17 02:01 Bedside Glucose 104 96 98 121 Test 09/04/17 05:20 09/04/17 08:56 09/04/17 12:30 Bedside Glucose 126 139 117 Medications Medications Current Medications Diagnostic Test (Pha) (Accu-Chek) 1 ea 02 XX Last administered on 08/31/17 01 :33; Admin Dose 1 EA; Start 08/23/17 at 02:00 Miscellaneous Information 1 ea NOTE XX ; Start 08/22/17 at 13:30 Glucose (Glutose) 15 gm Q15M PRN PO DECREASED GLUCOSE; Start 08/22/17 at 13:30 Glucose (Glutose) 22.5 gm Q15M PRN PO DECREASED GLUCOSE; Start 08/22/17 at 13: 30 Dextrose (D50w Syringe) 25 ml Q15M PRN IV DECREASED GLUCOSE Last administered on 09/02/17 17:42; Admin Dose 25 ML; Start 08/22/17 at 13:30 Dextrose (D50w Syringe) 50 ml Q15M PRN IV DECREASED GLUCOSE; Start 08/22/17 at 13:30 Glucagon (Glucagen) 1 mg Q15M PRN IM DECREASED GLUCOSE; Start 08/22/17 at 13:30 Glucose (Glutose) 15 gm Q15M PRN BUCCAL DECREASED GLUCOSE; Start 08/22/17 at 13 :30 Sodium Hypochlorite (Dakin'S (Dilute 1/40%)) 1 applic BID IRR Last administered on 09/04/17 08:58; Admin Dose 1 APPLIC; Start 08/23/17 at 09:00 Metoprolol Tartrate (Lopressor) 50 mg BID GTB Last administered on 09/04/17 08:58; Admin Dose 50 MG; Start 08/24/17 at 21:00 Acetaminophen (Tylenol Tab) 500 mg Q4H PRN PO PAIN AND OR ELEVATED TEMP Last administered on 08/27/17 01:27; Admin Dose 500 MG; Start 08/25/17 at 12:00 Morphine Sulfate (morphine) 2 mg Q4H PRN IV PAIN LEVEL 4-6 Last administered on 09/03/17 20:38; Admin Dose 2 MG; Start 08/25/17 at 12:00 Lansoprazole 30 mg 30 mg DAILY@06 GTB Last administered on 09/04/17 05:22; Admin Dose 30 MG; Start 08/29/17 at 06:00 Vancomycin HCl/ Sodium Chloride (Vancocin/NS) 150 ml @ 75 mls/hr Q96H IVPB Last administered on 09/03/17 00:13; Admin Dose 75 MLS/HR; Start 08/29/17 at 23:00 Insulin Glargine (Lantus) 15 unit DAILY SC Last administered on 09/04/17 09: 01; Admin Dose 15 UNIT; Start 08/29/17 at 20:00 Tobramycin (Tobramycin Iv Per Pharmacy) TOBRAMYCIN PER PHARMACY NOTE XX ; Start 08/29/17 at 16:30 Insulin Aspart (Novolog Insulin Pen) (Adult SC Insulin - Mild Algorithm)... Q4 SC Last administered on 09/03/17 09:37; Admin Dose 1 UNIT; Start 08/31/17 at 16:00 Lisinopril (Zestril) 20 mg BID PO Last administered on 09/04/17 08:59; Admin Dose 20 MG; Start 09/02/17 at 21:00 Clonidine (Catapres) 0.1 mg Q6H PRN GTB ELEVATED SYSTOLIC BP Last administered on 09/02/17 21:48; Admin Dose 0.1 MG; Start 09/02/17 at 21:30 DOMITILA QUIÑONES NP Sep 04, 2017 14:40
[2017-09-05] VITALS (32 sets, daily range): BP systolic 104–171; BP diastolic 56–94; PULSE 71–102; RESP 16–24
[2017-09-05] MEDS: INSULIN ASPART [NOVOLOG] 3 ML PEN SC SCH ×6 (01:00→21:00)
[2017-09-05] MEDS: ACCU-CHEK XX SCH (01:41)
[2017-09-05] MEDS: DEXTROSE 50% 50 ML SYRINGE IV PRN (01:44)
[2017-09-05] MEDS: LANSOPRAZOLE 30 MG CAP GTB SCH (05:13)
[2017-09-05] MEDS: LISINOPRIL 20 MG TAB PO SCH ×2 (09:09→21:56)
[2017-09-05] MEDS: SODIUM HYPOCHLORITE 1/40% 1L IRRIG IRR SCH ×2 (09:10→21:57)
[2017-09-05] MEDS: METOPROLOL 50 MG TAB GTB SCH ×2 (09:10→21:56)
[2017-09-05] MEDS: INSULIN GLARGINE [LANtus] 3 ML PEN SC SCH (09:21)
--- NOTE | 2017-09-05 10:21 | CONS ---
Date/Time of Note Date/Time of Note DATE: 09/05/17 TIME: : Assessment/Plan Assessment/Plan Additional Assessment/Plan 1. Sepsis due to PNA 2. Acute on chronic renal failure - with severe metabolic acidosis and acute uremic encephalopathy- pt is anuric, started on HD during this admission 3. AMS due to acute uremic encephalopathy + acute metabolic encephalopathy 3. H/o recent admission to [facility] for renal failure 4. H/o chronic resp failure s/p tracheostomy 5. HTN 6. H/o CVA with residual weakness 7.. IDDM 8. Anemia,severe, anemia of chronic disease, Plan: started on HD during this admission, Plan for HD today Hepatitis panel, HIV negative pt will be long-term HD patient., will have to place permcath placement for infectious disease technician HD access IV abx as per ID will follow up Consultation Date/Type/Reason Admit Date/Time Aug 20, 2017 at 17:03 Initial Consult Date 08/20/17 Type of Consultation: NEPHROLOGY Referring Provider: HUSSEIN ROSE 24 HR Interval Summary Free Text/Dictation doing ok, BP stable, no complaints , plan for HD today Exam/Review of Systems Vital Signs Vitals Vital Signs Date Time Temp Pulse Resp B/P Pulse Ox O2 Delivery O2 Flow Rate FiO2 09/05/17 09:09 80 09/05/17 07:40 24 97 50 09/05/17 07:29 98.4 122/61 09/01/17 21:00 Mechanical Ventilator Intake and Output 09/04/17 09/04/17 09/05/17 15:00 23:00 07:00 Intake Total 580 ml 740 ml Balance 580 ml 740 ml Exam Constitutional: non-verbal ENMT: other (+ tracheostomy on ventilator ) Respiratory: congested cough, crackles/rales, diminished breath sounds Cardiovascular: S3, regular rate and rhythm Gastrointestinal: non-tender, soft Musculoskeletal: other (2+ pittign edema ), swelling Neurological: other (non verbal ,lethargic, pt is s/p tracheostomy on ventilator ) Results Result Diagram: 09/05/17 0657 09/05/17 0657 Results 24 hrs Laboratory Tests Test 09/04/17 12:30 09/04/17 17:24 09/04/17 18:44 09/04/17 21:15 Bedside Glucose 117 71 76 81 Test 09/05/17 01:39 09/05/17 01:55 09/05/17 05:12 09/05/17 06:57 Bedside Glucose 67 L 173 110 White Blood Count 5.5 Red Blood Count 2.75 L Hemoglobin 8.0 L Hematocrit 25.2 L Mean Corpuscular Volume 91.6 Mean Corpuscular Hemoglobin 29.1 Mean Corpuscular Hemoglobin Concent 31.7 L Red Cell Distribution Width 14.7 H Platelet Count 171 # Mean Platelet Volume 11.2 H Neutrophils % 69.6 Lymphocytes % 19.6 Monocytes % 6.5 Eosinophils % 3.5 Basophils % 0.4 Nucleated Red Blood Cells % 0.0 Neutrophils # 3.8 Lymphocytes # 1.1 Monocytes # 0.4 Eosinophils # 0.2 Basophils # 0.0 Nucleated Red Blood Cells # 0.0 Sodium Level 135 Potassium Level 5.3 H Chloride Level 98 Carbon Dioxide Level 30 Anion Gap 12 Blood Urea Nitrogen 69 H Creatinine 4.56 H Glucose Level 99 Calcium Level 7.8 L Test 09/05/17 09:12 Bedside Glucose 117 Medications Medications Current Medications Diagnostic Test (Pha) (Accu-Chek) 1 ea 02 XX Last administered on 08/31/17 01 :33; Admin Dose 1 EA; Start 08/23/17 at 02:00 Miscellaneous Information 1 ea NOTE XX ; Start 08/22/17 at 13:30 Glucose (Glutose) 15 gm Q15M PRN PO DECREASED GLUCOSE; Start 08/22/17 at 13:30 Glucose (Glutose) 22.5 gm Q15M PRN PO DECREASED GLUCOSE; Start 08/22/17 at 13: 30 Dextrose (D50w Syringe) 25 ml Q15M PRN IV DECREASED GLUCOSE Last administered on 09/05/17 01:44; Admin Dose 25 ML; Start 08/22/17 at 13:30 Dextrose (D50w Syringe) 50 ml Q15M PRN IV DECREASED GLUCOSE; Start 08/22/17 at 13:30 Glucagon (Glucagen) 1 mg Q15M PRN IM DECREASED GLUCOSE; Start 08/22/17 at 13:30 Glucose (Glutose) 15 gm Q15M PRN BUCCAL DECREASED GLUCOSE; Start 08/22/17 at 13 :30 Sodium Hypochlorite (Dakin'S (Dilute 1/40%)) 1 applic BID IRR Last administered on 09/05/17 09:10; Admin Dose 1 APPLIC; Start 08/23/17 at 09:00 Metoprolol Tartrate (Lopressor) 50 mg BID GTB Last administered on 09/05/17 09:10; Admin Dose 50 MG; Start 08/24/17 at 21:00 Acetaminophen (Tylenol Tab) 500 mg Q4H PRN PO PAIN AND OR ELEVATED TEMP Last administered on 08/27/17 01:27; Admin Dose 500 MG; Start 08/25/17 at 12:00 Morphine Sulfate (morphine) 2 mg Q4H PRN IV PAIN LEVEL 4-6 Last administered on 09/03/17 20:38; Admin Dose 2 MG; Start 08/25/17 at 12:00 Lansoprazole 30 mg 30 mg DAILY@06 GTB Last administered on 09/05/17 05:13; Admin Dose 30 MG; Start 08/29/17 at 06:00 Vancomycin HCl/ Sodium Chloride (Vancocin/NS) 150 ml @ 75 mls/hr Q96H IVPB Last administered on 09/03/17 00:13; Admin Dose 75 MLS/HR; Start 08/29/17 at 23:00 Insulin Glargine (Lantus) 15 unit DAILY SC Last administered on 09/05/17 09: 21; Admin Dose 15 UNIT; Start 08/29/17 at 20:00 Tobramycin (Tobramycin Iv Per Pharmacy) TOBRAMYCIN PER PHARMACY NOTE XX ; Start 08/29/17 at 16:30 Insulin Aspart (Novolog Insulin Pen) (Adult SC Insulin - Mild Algorithm)... Q4 SC Last administered on 09/03/17 09:37; Admin Dose 1 UNIT; Start 08/31/17 at 16:00 Lisinopril (Zestril) 20 mg BID PO Last administered on 09/05/17 09:09; Admin Dose 20 MG; Start 09/02/17 at 21:00 Clonidine (Catapres) 0.1 mg Q6H PRN GTB ELEVATED SYSTOLIC BP Last administered on 09/02/17 21:48; Admin Dose 0.1 MG; Start 09/02/17 at 21:30 Epoetin Bo (Epogen (Esrd)) 2,000 units MoWeFr@17 SC ; Start 09/05/17 at 17:00 Epoetin Bo (Epogen (Esrd)) 3,000 units MoWeFr@[facility] [place] ; Start 09/05/17 at 17:00 LUCILLE CABALLERO MD Sep 05, 2017 10:21
--- NOTE | 2017-09-05 10:57 | CONS ---
Date/Time of Note Date/Time of Note DATE: 09/05/17 TIME: 10:55 Assessment/Plan Assessment/Plan Chief Complaint/Hosp Course IMPRESSION: 1. Positive troponin-in the setting of renal failure-No sig uptrend 2. Abnormal electrocardiogram, nonspecific ST-T abnormalities. 3. Hypertension-well controlled 4. Respiratory failure, chronic. 5. Renal failure, acute on chronic. 6. Dysphagia, status post G-tube. 7. Anemia-ongoing 8. Thrombocytopenia-Slowly improving 9. Encephalopathy. 10. History of CVA. 11. Diabetes mellitus. 12. Hypokalemia 14. Cardiomyopathy-depressed EF 40% Recc: -Tele -Continue BB/ACEI with uptitration to improve BP control -trend cardiac enzymes -follow volume status with HD for volume removal ongoing today -Will consider asa if platelet count/Hgb remains stable -Continue abx's and f/u cx data Problems: Consultation Date/Type/Reason Admit Date/Time Aug 20, 2017 at 17:03 Initial Consult Date 08/20/17 Type of Consultation: cardiology Reason for Consultation positive troponin Referring Provider: HUSSEIN ROSE Exam/Review of Systems Vital Signs Vitals Vital Signs Date Time Temp Pulse Resp B/P Pulse Ox O2 Delivery O2 Flow Rate FiO2 09/05/17 09:40 87 24 98 50 09/05/17 07:29 98.4 122/61 09/01/17 21:00 Mechanical Ventilator Intake and Output 09/04/17 09/04/17 09/05/17 15:00 23:00 07:00 Intake Total 580 ml 740 ml Balance 580 ml 740 ml Exam Review of Systems: CONSTITUTIONAL: No fevers, chills. PULMONARY: No sob CARDIOVASCULAR: No chest pain/palpitations GASTROINTESTINAL: No nausea/vomiting. GENITOURINARY: No hematuria/dysuria. MUSCULOSKELETAL: No myagias/arthalgias. PSYCHIATRIC: The patient denies depression. NEUROLOGIC: No weakness Constitutional: alert Psych: no complaints Head: normocephalic ENMT: mucosa pink and moist Neck: jvd (9 cm water), supple Respiratory: diminished breath sounds (at bases/B) Cardiovascular: regular rate and rhythm Gastrointestinal: non-tender, soft Musculoskeletal: muscle tone (normal) Extremities: pitting pedal edema (trace to 1+ bilateral) Results Result Diagram: 09/05/17 0657 09/05/17 0657 Results 24 hrs Laboratory Tests Test 09/04/17 12:30 09/04/17 17:24 09/04/17 18:44 09/04/17 21:15 Bedside Glucose 117 71 76 81 Test 09/05/17 01:39 09/05/17 01:55 09/05/17 05:12 09/05/17 06:57 Bedside Glucose 67 L 173 110 White Blood Count 5.5 Red Blood Count 2.75 L Hemoglobin 8.0 L Hematocrit 25.2 L Mean Corpuscular Volume 91.6 Mean Corpuscular Hemoglobin 29.1 Mean Corpuscular Hemoglobin Concent 31.7 L Red Cell Distribution Width 14.7 H Platelet Count 171 # Mean Platelet Volume 11.2 H Neutrophils % 69.6 Lymphocytes % 19.6 Monocytes % 6.5 Eosinophils % 3.5 Basophils % 0.4 Nucleated Red Blood Cells % 0.0 Neutrophils # 3.8 Lymphocytes # 1.1 Monocytes # 0.4 Eosinophils # 0.2 Basophils # 0.0 Nucleated Red Blood Cells # 0.0 Sodium Level 135 Potassium Level 5.3 H Chloride Level 98 Carbon Dioxide Level 30 Anion Gap 12 Blood Urea Nitrogen 69 H Creatinine 4.56 H Glucose Level 99 Calcium Level 7.8 L Test 09/05/17 09:12 Bedside Glucose 117 Medications Medications Current Medications Diagnostic Test (Pha) (Accu-Chek) 1 ea 02 XX Last administered on 08/31/17 01 :33; Admin Dose 1 EA; Start 08/23/17 at 02:00 Miscellaneous Information 1 ea NOTE XX ; Start 08/22/17 at 13:30 Glucose (Glutose) 15 gm Q15M PRN PO DECREASED GLUCOSE; Start 08/22/17 at 13:30 Glucose (Glutose) 22.5 gm Q15M PRN PO DECREASED GLUCOSE; Start 08/22/17 at 13: 30 Dextrose (D50w Syringe) 25 ml Q15M PRN IV DECREASED GLUCOSE Last administered on 09/05/17 01:44; Admin Dose 25 ML; Start 08/22/17 at 13:30 Dextrose (D50w Syringe) 50 ml Q15M PRN IV DECREASED GLUCOSE; Start 08/22/17 at 13:30 Glucagon (Glucagen) 1 mg Q15M PRN IM DECREASED GLUCOSE; Start 08/22/17 at 13:30 Glucose (Glutose) 15 gm Q15M PRN BUCCAL DECREASED GLUCOSE; Start 08/22/17 at 13 :30 Sodium Hypochlorite (Dakin'S (Dilute 1/40%)) 1 applic BID IRR Last administered on 09/05/17 09:10; Admin Dose 1 APPLIC; Start 08/23/17 at 09:00 Metoprolol Tartrate (Lopressor) 50 mg BID GTB Last administered on 09/05/17 09:10; Admin Dose 50 MG; Start 08/24/17 at 21:00 Acetaminophen (Tylenol Tab) 500 mg Q4H PRN PO PAIN AND OR ELEVATED TEMP Last administered on 08/27/17 01:27; Admin Dose 500 MG; Start 08/25/17 at 12:00 Morphine Sulfate (morphine) 2 mg Q4H PRN IV PAIN LEVEL 4-6 Last administered on 09/03/17 20:38; Admin Dose 2 MG; Start 08/25/17 at 12:00 Lansoprazole 30 mg 30 mg DAILY@06 GTB Last administered on 09/05/17 05:13; Admin Dose 30 MG; Start 08/29/17 at 06:00 Vancomycin HCl/ Sodium Chloride (Vancocin/NS) 150 ml @ 75 mls/hr Q96H IVPB Last administered on 09/03/17 00:13; Admin Dose 75 MLS/HR; Start 08/29/17 at 23:00 Insulin Glargine (Lantus) 15 unit DAILY SC Last administered on 09/05/17 09: 21; Admin Dose 15 UNIT; Start 08/29/17 at 20:00 Tobramycin (Tobramycin Iv Per Pharmacy) TOBRAMYCIN PER PHARMACY NOTE XX ; Start 08/29/17 at 16:30 Insulin Aspart (Novolog Insulin Pen) (Adult SC Insulin - Mild Algorithm)... Q4 SC Last administered on 09/03/17 09:37; Admin Dose 1 UNIT; Start 08/31/17 at 16:00 Lisinopril (Zestril) 20 mg BID PO Last administered on 09/05/17 09:09; Admin Dose 20 MG; Start 09/02/17 at 21:00 Clonidine (Catapres) 0.1 mg Q6H PRN GTB ELEVATED SYSTOLIC BP Last administered on 10/13/17at 21:48; Admin Dose 0.1 MG; Start 09/02/17 at 21:30 Epoetin Bo (Epogen (Esrd)) 2,000 units MoWeFr@17 SC ; Start 09/05/17 at 17:00 Epoetin Bo (Epogen (Esrd)) 3,000 units MoWeFr@17 SC ; Start 09/05/17 at 17:00 BRENTON NORTON Sep 05, 2017 10:57
--- NOTE | 2017-09-05 11:35 | CONS ---
Date/Time of Note Date/Time of Note DATE: 09/05/17 TIME: 11:32 Assessment/Plan Assessment/Plan Additional Assessment/Plan Ventilator setting; AC of 24, tidal volume 450, PEEP of 5, 50% FiO2. Assessment and recommendations; 1. Patient admitted with severe pneumonia as well as decubitus ulcers growing multiple gram-negative organisms. Patient currently on appropriate antibiotic coverage. 2. Chronic respiratory failure, ventilator dependent. 3. Anemia. 4. Thrombocytopenia with interval improvement. 5. Chronic renal insufficiency. 6. Advanced dementia. Continue current supportive care. Consultation Date/Type/Reason Admit Date/Time Aug 20, 2017 at 17:03 Initial Consult Date 08/20/17 Type of Consultation: Pulmonary Referring Provider: HUSSEIN ROSE 24 HR Interval Summary Free Text/Dictation Patient's condition remains unchanged. Remains profoundly unresponsive due to advanced anoxic brain injury. Also remains chronically ventilator dependent. Patient still requiring fairly high FiO2 for O2 saturation maintenance. General exam; elderly male, on ventilator via tracheostomy, currently in no distress. Patient is non-arousable. Exam/Review of Systems Vital Signs Vitals Vital Signs Date Time Temp Pulse Resp B/P Pulse Ox O2 Delivery O2 Flow Rate FiO2 09/05/17 09:40 87 24 98 50 09/05/17 07:29 98.4 122/61 09/01/17 21:00 Mechanical Ventilator Intake and Output 09/04/17 09/04/17 09/05/17 15:00 23:00 07:00 Intake Total 580 ml 740 ml Balance 580 ml 740 ml Exam H ENT exam; supple neck, positive JVD. No lymphadenopathy. Midline trachea. No thyromegaly. Tracheostomy in place. Chest exam; bilateral crackles. S1-S2 audible, no murmurs. Regular rhythm. Abdomen exam; soft, G-tube in place. Bowel sounds audible. Extremity exam; no peripheral edema. OPHTHALMIC SURGICAL ASSISTANT exam; patient remains unresponsive. Results Result Diagram: 09/05/17 0657 09/05/17 0657 Results 24 hrs Laboratory Tests Test 09/04/17 12:30 09/04/17 17:24 09/04/17 18:44 09/04/17 21:15 Bedside Glucose 117 71 76 81 Test 09/05/17 01:39 09/05/17 01:55 09/05/17 05:12 09/05/17 06:57 Bedside Glucose 67 L 173 110 White Blood Count 5.5 Red Blood Count 2.75 L Hemoglobin 8.0 L Hematocrit 25.2 L Mean Corpuscular Volume 91.6 Mean Corpuscular Hemoglobin 29.1 Mean Corpuscular Hemoglobin Concent 31.7 L Red Cell Distribution Width 14.7 H Platelet Count 171 # Mean Platelet Volume 11.2 H Neutrophils % 69.6 Lymphocytes % 19.6 Monocytes % 6.5 Eosinophils % 3.5 Basophils % 0.4 Nucleated Red Blood Cells % 0.0 Neutrophils # 3.8 Lymphocytes # 1.1 Monocytes # 0.4 Eosinophils # 0.2 Basophils # 0.0 Nucleated Red Blood Cells # 0.0 Sodium Level 135 Potassium Level 5.3 H Chloride Level 98 Carbon Dioxide Level 30 Anion Gap 12 Blood Urea Nitrogen 69 H Creatinine 4.56 H Glucose Level 99 Calcium Level 7.8 L Test 09/05/17 09:12 Bedside Glucose 117 Medications Medications Current Medications Diagnostic Test (Pha) (Accu-Chek) 1 ea 02 XX Last administered on 08/31/17 01 :33; Admin Dose 1 EA; Start 08/23/17 at 02:00 Miscellaneous Information 1 ea NOTE XX ; Start 08/22/17 at 13:30 Glucose (Glutose) 15 gm Q15M PRN PO DECREASED GLUCOSE; Start 08/22/17 at 13:30 Glucose (Glutose) 22.5 gm Q15M PRN PO DECREASED GLUCOSE; Start 08/22/17 at 13: 30 Dextrose (D50w Syringe) 25 ml Q15M PRN IV DECREASED GLUCOSE Last administered on 09/05/17 01:44; Admin Dose 25 ML; Start 08/22/17 at 13:30 Dextrose (D50w Syringe) 50 ml Q15M PRN IV DECREASED GLUCOSE; Start 08/22/17 at 13:30 Glucagon (Glucagen) 1 mg Q15M PRN IM DECREASED GLUCOSE; Start 08/22/17 at 13:30 Glucose (Glutose) 15 gm Q15M PRN BUCCAL DECREASED GLUCOSE; Start 08/22/17 at 13 :30 Sodium Hypochlorite (Dakin'S (Dilute 1/40%)) 1 applic BID IRR Last administered on 09/05/17 09:10; Admin Dose 1 APPLIC; Start 08/23/17 at 09:00 Metoprolol Tartrate (Lopressor) 50 mg BID GTB Last administered on 09/05/17 09:10; Admin Dose 50 MG; Start 08/24/17 at 21:00 Acetaminophen (Tylenol Tab) 500 mg Q4H PRN PO PAIN AND OR ELEVATED TEMP Last administered on 08/27/17 01:27; Admin Dose 500 MG; Start 08/25/17 at 12:00 Morphine Sulfate (morphine) 2 mg Q4H PRN IV PAIN LEVEL 4-6 Last administered on 09/03/17 20:38; Admin Dose 2 MG; Start 08/25/17 at 12:00 Lansoprazole 30 mg 30 mg DAILY@06 GTB Last administered on 09/05/17 05:13; Admin Dose 30 MG; Start 08/29/17 at 06:00 Vancomycin HCl/ Sodium Chloride (Vancocin/NS) 150 ml @ 75 mls/hr Q96H IVPB Last administered on 09/03/17 00:13; Admin Dose 75 MLS/HR; Start 08/29/17 at 23:00 Insulin Glargine (Lantus) 15 unit DAILY SC Last administered on 09/05/17 09: 21; Admin Dose 15 UNIT; Start 08/29/17 at 20:00 Tobramycin (Tobramycin Iv Per Pharmacy) TOBRAMYCIN PER PHARMACY NOTE XX ; Start 08/29/17 at 16:30 Insulin Aspart (Novolog Insulin Pen) (Adult SC Insulin - Mild Algorithm)... Q4 SC Last administered on 09/03/17 09:37; Admin Dose 1 UNIT; Start 08/31/17 at 16:00 Lisinopril (Zestril) 20 mg BID PO Last administered on 09/05/17 09:09; Admin Dose 20 MG; Start 09/02/17 at 21:00 Clonidine (Catapres) 0.1 mg Q6H PRN GTB ELEVATED SYSTOLIC BP Last administered on 09/02/17 21:48; Admin Dose 0.1 MG; Start 09/02/17 at 21:30 Epoetin Bo (Epogen (Esrd)) 2,000 units MoWeFr@17 SC ; Start 09/05/17 at 17:00 Epoetin Bo (Epogen (Esrd)) 3,000 units MoWeFr@17 SC ; Start 09/05/17 at 17:00 ODETTE MCKEON Sep 05, 2017 11:35
--- NOTE | 2017-09-05 13:31 | CONS ---
Date/Time of Note Date/Time of Note DATE: 09/05/17 TIME: 13:30 Consult Date/Type/Reason Admit Date/Time Aug 20, 2017 at 17:03 Initial Consult Date 08/20/17 Type of Consultation: ID Ordering Provider: HUSSEIN ROSE Objective Vital Signs Date Time Temp Pulse Resp B/P Pulse Ox O2 Delivery O2 Flow Rate FiO2 09/05/17 12:23 132/64 96 Mechanical Ventilator 09/05/17 12:22 84 09/05/17 11:46 98.0 18 09/05/17 09:40 50 Intake and Output 09/04/17 09/04/17 09/05/17 15:00 23:00 07:00 Intake Total 580 ml 740 ml Balance 580 ml 740 ml Results/Medications Result Diagram: 09/05/17 0657 09/05/17 0657 Results 24 hrs Laboratory Tests Test 09/04/17 17:24 09/04/17 18:44 09/04/17 21:15 09/05/17 01:39 Bedside Glucose 71 76 81 67 L Test 09/05/17 01:55 09/05/17 05:12 09/05/17 06:57 09/05/17 09:12 Bedside Glucose 173 110 117 White Blood Count 5.5 Red Blood Count 2.75 L Hemoglobin 8.0 L Hematocrit 25.2 L Mean Corpuscular Volume 91.6 Mean Corpuscular Hemoglobin 29.1 Mean Corpuscular Hemoglobin Concent 31.7 L Red Cell Distribution Width 14.7 H Platelet Count 171 # Mean Platelet Volume 11.2 H Neutrophils % 69.6 Lymphocytes % 19.6 Monocytes % 6.5 Eosinophils % 3.5 Basophils % 0.4 Nucleated Red Blood Cells % 0.0 Neutrophils # 3.8 Lymphocytes # 1.1 Monocytes # 0.4 Eosinophils # 0.2 Basophils # 0.0 Nucleated Red Blood Cells # 0.0 Sodium Level 135 Potassium Level 5.3 H Chloride Level 98 Carbon Dioxide Level 30 Anion Gap 12 Blood Urea Nitrogen 69 H Creatinine 4.56 H Glucose Level 99 Calcium Level 7.8 L Test 09/05/17 11:51 Bedside Glucose 125 Medications Current Medications Diagnostic Test (Pha) (Accu-Chek) 1 ea 02 XX Last administered on 08/31/17t 01 :33; Admin Dose 1 EA; Start 08/23/17 at 02:00 Miscellaneous Information 1 ea NOTE XX ; Start 08/22/17 at 13:30 Glucose (Glutose) 15 gm Q15M PRN PO DECREASED GLUCOSE; Start 08/22/17 at 13:30 Glucose (Glutose) 22.5 gm Q15M PRN PO DECREASED GLUCOSE; Start 08/22/17 at 13: 30 Dextrose (D50w Syringe) 25 ml Q15M PRN IV DECREASED GLUCOSE Last administered on 09/05/17 01:44; Admin Dose 25 ML; Start 08/22/17 at 13:30 Dextrose (D50w Syringe) 50 ml Q15M PRN IV DECREASED GLUCOSE; Start 08/22/17 at 13:30 Glucagon (Glucagen) 1 mg Q15M PRN IM DECREASED GLUCOSE; Start 08/22/17 at 13:30 Glucose (Glutose) 15 gm Q15M PRN BUCCAL DECREASED GLUCOSE; Start 08/22/17 at 13 :30 Sodium Hypochlorite (Dakin'S (Dilute 1/40%)) 1 applic BID IRR Last administered on 09/05/17 09:10; Admin Dose 1 APPLIC; Start 08/23/17 at 09:00 Metoprolol Tartrate (Lopressor) 50 mg BID GTB Last administered on 09/05/17 09:10; Admin Dose 50 MG; Start 08/24/17 at 21:00 Acetaminophen (Tylenol Tab) 500 mg Q4H PRN PO PAIN AND OR ELEVATED TEMP Last administered on 08/27/17 01:27; Admin Dose 500 MG; Start 08/25/17 at 12:00 Morphine Sulfate (morphine) 2 mg Q4H PRN IV PAIN LEVEL 4-6 Last administered on 09/03/17 20:38; Admin Dose 2 MG; Start 08/25/17 at 12:00 Lansoprazole 30 mg 30 mg DAILY@06 GTB Last administered on 09/05/17 05:13; Admin Dose 30 MG; Start 08/29/17 at 06:00 Vancomycin HCl/ Sodium Chloride (Vancocin/NS) 150 ml @ 75 mls/hr Q96H IVPB Last administered on 09/03/17 00:13; Admin Dose 75 MLS/HR; Start 08/29/17 at 23:00 Insulin Glargine (Lantus) 15 unit DAILY SC Last administered on 09/05/17 09: 21; Admin Dose 15 UNIT; Start 08/29/17 at 20:00 Tobramycin (Tobramycin Iv Per Pharmacy) TOBRAMYCIN PER PHARMACY NOTE XX ; Start 08/29/17 at 16:30 Insulin Aspart (Novolog Insulin Pen) (Adult SC Insulin - Mild Algorithm)... Q4 SC Last administered on 09/03/17 09:37; Admin Dose 1 UNIT; Start 08/31/17 at 16:00 Lisinopril (Zestril) 20 mg BID PO Last administered on 09/05/17 09:09; Admin Dose 20 MG; Start 09/02/17 at 21:00 Clonidine (Catapres) 0.1 mg Q6H PRN GTB ELEVATED SYSTOLIC BP Last administered on 09/02/17 21:48; Admin Dose 0.1 MG; Start 09/02/17 at 21:30 Epoetin Bo (Epogen (Esrd)) 2,000 units MoWeFr@17 SC ; Start 09/05/17 at 17:00 Epoetin Bo (Epogen (Esrd)) 3,000 units MoWeFr@17 SC ; Start 09/05/17 at 17:00 Assessment/Plan Chief Complaint/Hosp Course SUBJECTIVE: No acute changes. The patient is lying comfortably in bed. No fevers. ANTIMICROBIALS: The patient is on IV vancomycin and tobramycin. INDWELLINGS: Trach, PEG, Chun, R fem Calos catheter and left upper extremity PICC line. PHYSICAL EXAMINATION: GENERAL: This is a chronically ill-appearing, elderly man in no distress. HEENT: Head atraumatic, normocephalic. Sclerae anicteric. Buccal mucosa dry. NECK: Obese. CHEST: Rise symmetrical. Breath sounds clear, diminished to bases. HEART: S1, S2. ABDOMEN: Soft. Bowel sounds present. EXTREMITIES: With trace edema. ASSESSMENT: 1. Status post septic shock. 2. Acute on chronic respiratory failure . 3. Healthcare-associated pneumonia. 4. Sacral decubitus. 5. 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 6. Diabetes. 7. Chronic encephalopathy. PLAN: Remains hemodynamically stable, will dc antibiotics and observe, continue local wound care, vent per pulmonary Problems: BISI MARTIN NP Sep 05, 2017 13:31
--- NOTE | 2017-09-05 14:59 | RADRPT ---
Vent Rate: 106 bpm RR Interval: 0 msec [place] Interval: 134 msec QRS Duration: 82 msec QT Interval: 352 msec QTC Interval: 467 msec P-R-T [place]: 34 - 9 - 150 degrees Sinus tachycardia Septal infarct , age undetermined Abnormal ECG Electronically Signed By: Kaveh Carballo [id number]
--- NOTE | 2017-09-05 14:59 | RADRPT ---
Vent Rate: 106 bpm RR Interval: 0 msec [place] Interval: 134 msec QRS Duration: 82 msec QT Interval: 352 msec QTC Interval: 467 msec P-R-T [place]: 34 - 9 - 150 degrees Sinus tachycardia Septal infarct , age undetermined Abnormal ECG Electronically Signed By: Kaveh Carballo [id number]
--- NOTE | 2017-09-05 14:59 | RADRPT ---
Vent Rate: 106 bpm RR Interval: 0 msec [place] Interval: 134 msec QRS Duration: 82 msec QT Interval: 352 msec QTC Interval: 467 msec P-R-T [place]: 34 - 9 - 150 degrees Sinus tachycardia Septal infarct , age undetermined Abnormal ECG Electronically Signed By: Kaveh Carballo [id number]
[2017-09-05] MEDS: HEPARIN 1000 UNITS/ML 10 ML INJ CATHETER SCH (15:59)
[2017-09-05] MEDS: EPOETIN 3000 UNITS/1 ML INJ (ESRD) SC SCH (16:44)
[2017-09-05] MEDS: EPOETIN 2000 UNITS/1 ML INJ (ESRD) SC SCH (16:45)
[2017-09-05] MEDS ORDERED: EPOETIN 4000 UNITS/1 ML INJ (ESRD) SC SCH (17:00)
--- NOTE | 2017-09-05 18:05 | PN ---
Date/Time of Note Date/Time of Note DATE: 09/05/17 TIME: 18:01 Assessment/Plan VTE Prophylaxis VTE Prophylaxis Intervention: SCD's Lines/Catheters [facility] PICC Line Central line still needed: Yes Urinary Cath still in place: No Assessment/Plan Chief Complaint/Hosp Course Pt is hemodynamically stable, afebrile, completed treatment with antibiotics, plan for permanent hemodialysis catheter insertion by vascular surgery. Assessment/Plan -Acute on chronic CKD. Continue hemodialysis. Dr. Nieto is following in nephrology consultation. -Ventilator dependent respiratory failure with tracheostomy. -Pulmonary edema versus multifocal pneumonia, status post treatment with antibiotics. Dr Hlil is following in infection disease consultation -Positive troponin in the setting of renal disease, Dr. Zuniga is following in cardiology consultation -Acute metabolic encephalopathy -Anemia, s/p blood transfusion, continue Epogen, continue to monitor hemoglobin and hematocrit -DM, continue Lantus, NovoLog per sliding scale. -Dysphagia with PEG -Sacral wound Further recommendations based on clinical course. Plan of care discussed with Dr. Chávez. Problems: Exam/Review of Systems Vital Signs Vitals Vital Signs Date Time Temp Pulse Resp B/P Pulse Ox O2 Delivery O2 Flow Rate FiO2 09/05/17 16:38 102 09/05/17 15:48 97.9 20 121/63 97 09/05/17 15:25 50 09/05/17 12:23 Mechanical Ventilator Intake and Output 09/04/17 09/04/17 09/05/17 15:00 23:00 07:00 Intake Total 580 ml 740 ml Balance 580 ml 740 ml Exam Constitutional: non-verbal Head: normocephalic Neck: supple Respiratory: diminished breath sounds Cardiovascular: nl pulses Gastrointestinal: non-tender, other (G-tube), soft Extremities: edema Results Result Diagram: 09/05/17 0657 09/05/17 0657 Results 24 hrs Laboratory Tests Test 09/04/17 18:44 09/04/17 21:15 09/05/17 01:39 09/05/17 01:55 Bedside Glucose 76 81 67 L 173 Test 09/05/17 05:12 09/05/17 06:57 09/05/17 09:12 09/05/17 11:51 Bedside Glucose 110 117 125 White Blood Count 5.5 Red Blood Count 2.75 L Hemoglobin 8.0 L Hematocrit 25.2 L Mean Corpuscular Volume 91.6 Mean Corpuscular Hemoglobin 29.1 Mean Corpuscular Hemoglobin Concent 31.7 L Red Cell Distribution Width 14.7 H Platelet Count 171 # Mean Platelet Volume 11.2 H Neutrophils % 69.6 Lymphocytes % 19.6 Monocytes % 6.5 Eosinophils % 3.5 Basophils % 0.4 Nucleated Red Blood Cells % 0.0 Neutrophils # 3.8 Lymphocytes # 1.1 Monocytes # 0.4 Eosinophils # 0.2 Basophils # 0.0 Nucleated Red Blood Cells # 0.0 Sodium Level 135 Potassium Level 5.3 H Chloride Level 98 Carbon Dioxide Level 30 Anion Gap 12 Blood Urea Nitrogen 69 H Creatinine 4.56 H Glucose Level 99 Calcium Level 7.8 L Test 09/05/17 17:45 Bedside Glucose 145 Medications Medications Current Medications Diagnostic Test (Pha) (Accu-Chek) 1 ea 02 XX Last administered on 08/31/17 01 :33; Admin Dose 1 EA; Start 08/23/17 at 02:00 Miscellaneous Information 1 ea NOTE XX ; Start 08/22/17 at 13:30 Glucose (Glutose) 15 gm Q15M PRN PO DECREASED GLUCOSE; Start 08/22/17 at 13:30 Glucose (Glutose) 22.5 gm Q15M PRN PO DECREASED GLUCOSE; Start 08/22/17 at 13: 30 Dextrose (D50w Syringe) 25 ml Q15M PRN IV DECREASED GLUCOSE Last administered on 09/05/17 01:44; Admin Dose 25 ML; Start 08/22/17 at 13:30 Dextrose (D50w Syringe) 50 ml Q15M PRN IV DECREASED GLUCOSE; Start 08/22/17 at 13:30 Glucagon (Glucagen) 1 mg Q15M PRN IM DECREASED GLUCOSE; Start 08/22/17 at 13:30 Glucose (Glutose) 15 gm Q15M PRN BUCCAL DECREASED GLUCOSE; Start 08/22/17 at 13 :30 Sodium Hypochlorite (Dakin'S (Dilute 1/40%)) 1 applic BID IRR Last administered on 09/05/17 09:10; Admin Dose 1 APPLIC; Start 08/23/17 at 09:00 Metoprolol Tartrate (Lopressor) 50 mg BID GTB Last administered on 09/05/17 09:10; Admin Dose 50 MG; Start 08/24/17 at 21:00 Acetaminophen (Tylenol Tab) 500 mg Q4H PRN PO PAIN AND OR ELEVATED TEMP Last administered on 08/27/17 01:27; Admin Dose 500 MG; Start 08/25/17 at 12:00 Morphine Sulfate (morphine) 2 mg Q4H PRN IV PAIN LEVEL 4-6 Last administered on 09/03/17 20:38; Admin Dose 2 MG; Start 08/25/17 at 12:00 Lansoprazole (Prevacid) 30 mg DAILY@06 GTB Last administered on 09/05/17 05: 13; Admin Dose 30 MG; Start 08/29/17 at 06:00 Insulin Glargine (Lantus) 15 unit DAILY SC Last administered on 09/05/17 09: 21; Admin Dose 15 UNIT; Start 08/29/17 at 20:00 Insulin Aspart (Novolog Insulin Pen) (Adult SC Insulin - Mild Algorithm)... Q4 SC Last administered on 09/05/17 17:51; Admin Dose 1 UNIT; Start 08/31/17 at 16:00 Lisinopril (Zestril) 20 mg BID PO Last administered on 09/05/17 09:09; Admin Dose 20 MG; Start 09/02/17 at 21:00 Clonidine (Catapres) 0.1 mg Q6H PRN GTB ELEVATED SYSTOLIC BP Last administered on 09/02/17 21:48; Admin Dose 0.1 MG; Start 09/02/17 at 21:30 Epoetin Bo (Epogen (Esrd)) 2,000 units MoWeFr@17 SC Last administered on 16:45; Admin Dose 2,000 UNITS; Start 09/05/17 at 17:00 Epoetin Bo (Epogen (Esrd)) 3,000 units MoWeFr@17 SC Last administered on 16:44; Admin Dose 3,000 UNITS; Start 09/05/17 at 17:00 ARLETH MCKNIGHT Sep 05, 2017 18:05
[2017-09-06] VITALS (22 sets, daily range): BP systolic 125–160; BP diastolic 58–85; PULSE 72–80; RESP 18–25
[2017-09-06] MEDS: INSULIN ASPART [NOVOLOG] 3 ML PEN SC SCH ×6 (01:00→21:00)
[2017-09-06] MEDS: ACCU-CHEK XX SCH (02:00)
[2017-09-06] MEDS: LANSOPRAZOLE 30 MG CAP GTB SCH (05:32)
[2017-09-06] MEDS: SODIUM HYPOCHLORITE 1/40% 1L IRRIG IRR SCH ×2 (09:07→21:16)
--- NOTE | 2017-09-06 09:07 | CONS ---
Date/Time of Note Date/Time of Note DATE: 09/06/17 TIME: 09:05 Assessment/Plan Assessment/Plan Additional Assessment/Plan 1. Positive troponin status. Significant in the setting of renal failure-No sig uptrend - no cp now, no intervention planned. STABLE. NO CP now. 2. Abnormal electrocardiogram, nonspecific ST-T abnormalities.- stable overall. No ectopy on tele. 3. Hypertension- labile - no CP, will allow for now- stable BP now. 4. Respiratory failure, chronic - resp team follows. BETTER overall. On vent support. 5. Renal failure, acute on chronic. 6. Dysphagia, status post G-tube. 7. Anemia-ongoing - replace as needed 8. Thrombocytopenia-ongoing 9. Encephalopathy. 10. 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 11. Diabetes mellitus. 12. Hypokalemia 14. Cardiomyopathy-depressed EF 40% 15. PNA - rx with anti-Bx now Consultation Date/Type/Reason Admit Date/Time Aug 20, 2017 at 17:03 Initial Consult Date 08/20/17 Type of Consultation: ID Referring Provider: HUSSEIN ROSE 24 HR Interval Summary Free Text/Dictation NO acute events - will monitor clinically. ROS: No fever, no chills, no nausea, no vomiting, no diarrhea/constipation No recent weight changes No chest pain, no PND, no orthopnea No dizziness, blurred vision No thirst, no heat or cold intolerance (per nurse) Exam/Review of Systems Vital Signs Vitals Vital Signs Date Time Temp Pulse Resp B/P Pulse Ox O2 Delivery O2 Flow Rate FiO2 09/06/17 08:26 74 09/06/17 08:02 98.7 24 133/64 95 09/06/17 07:20 50 09/05/17 12:23 Mechanical Ventilator Intake and Output 09/05/17 09/05/17 09/06/17 15:00 23:00 07:00 Intake Total 880 ml 590 ml Output Total 3500 ml Balance -2620 ml 590 ml Exam General: WN/WD/NAD, AOx 0 HEENT: Unicetric/atraumatic/EOMI (does not follow commands) NECK: tarch no thyromegaly Lymph: no lymphadenopathy HEART: regular with no S3, II/ systolic murmur at apex LUNGS: Coarse sounds ABD: soft, NT, ND, +BS : Intact Neuro: non focal SKIN: chronic changes EXT: trace edema Results Result Diagram: 09/06/17 0655 09/06/17 0655 Results 24 hrs Laboratory Tests Test 09/05/17 09:12 09/05/17 11:51 09/05/17 17:45 09/05/17 21:58 Bedside Glucose 117 125 145 129 Test 09/06/17 01:13 09/06/17 05:31 09/06/17 06:55 Bedside Glucose 124 117 White Blood Count 4.4 L Red Blood Count 2.72 L Hemoglobin 7.5 L Hematocrit 24.8 L Mean Corpuscular Volume 91.2 Mean Corpuscular Hemoglobin 27.6 L Mean Corpuscular Hemoglobin Concent 30.2 L Red Cell Distribution Width 14.7 H Platelet Count 153 Mean Platelet Volume 11.2 H Neutrophils % 51.3 Lymphocytes % 35.2 Monocytes % 8.0 Eosinophils % 5.0 Basophils % 0.5 Nucleated Red Blood Cells % 0.0 Neutrophils # 2.3 Lymphocytes # 1.5 Monocytes # 0.4 Eosinophils # 0.2 Basophils # 0.0 Nucleated Red Blood Cells # 0.0 Sodium Level 136 Potassium Level 4.4 Chloride Level 102 Carbon Dioxide Level 29 Anion Gap 9 Blood Urea Nitrogen 54 H Creatinine 3.90 H Glucose Level 111 Calcium Level 8.0 L Medications Medications Current Medications Diagnostic Test (Pha) (Accu-Chek) 1 ea 02 XX Last administered on 08/31/17 01 :33; Admin Dose 1 EA; Start 08/23/17 at 02:00 Miscellaneous Information 1 ea NOTE XX ; Start 08/22/17 at 13:30 Glucose (Glutose) 15 gm Q15M PRN PO DECREASED GLUCOSE; Start 08/22/17 at 13:30 Glucose (Glutose) 22.5 gm Q15M PRN PO DECREASED GLUCOSE; Start 08/22/17 at 13: 30 Dextrose (D50w Syringe) 25 ml Q15M PRN IV DECREASED GLUCOSE Last administered on 09/05/17 01:44; Admin Dose 25 ML; Start 08/22/17 at 13:30 Dextrose (D50w Syringe) 50 ml Q15M PRN IV DECREASED GLUCOSE; Start 08/22/17 at 13:30 Glucagon (Glucagen) 1 mg Q15M PRN IM DECREASED GLUCOSE; Start 08/22/17 at 13:30 Glucose (Glutose) 15 gm Q15M PRN BUCCAL DECREASED GLUCOSE; Start 08/22/17 at 13 :30 Sodium Hypochlorite (Dakin'S (Dilute 1/40%)) 1 applic BID IRR Last administered on 09/05/17 21:57; Admin Dose 1 APPLIC; Start 08/23/17 at 09:00 Metoprolol Tartrate (Lopressor) 50 mg BID GTB Last administered on 09/05/17 21:56; Admin Dose 50 MG; Start 08/24/17 at 21:00 Acetaminophen (Tylenol Tab) 500 mg Q4H PRN PO PAIN AND OR ELEVATED TEMP Last administered on 08/27/17 01:27; Admin Dose 500 MG; Start 08/25/17 at 12:00 Morphine Sulfate (morphine) 2 mg Q4H PRN IV PAIN LEVEL 4-6 Last administered on 09/03/17 20:38; Admin Dose 2 MG; Start 08/25/17 at 12:00 Lansoprazole (Prevacid) 30 mg DAILY@06 GTB Last administered on 09/06/17 05: 32; Admin Dose 30 MG; Start 08/29/17 at 06:00 Insulin Glargine (Lantus) 15 unit DAILY SC Last administered on 09/05/17 09: 21; Admin Dose 15 UNIT; Start 08/29/17 at 20:00 Insulin Aspart (Novolog Insulin Pen) (Adult SC Insulin - Mild Algorithm)... Q4 SC Last administered on 09/05/17 17:51; Admin Dose 1 UNIT; Start 08/31/17 at 16:00 Lisinopril (Zestril) 20 mg BID PO Last administered on 09/05/17 21:56; Admin Dose 20 MG; Start 09/02/17 at 21:00 Clonidine (Catapres) 0.1 mg Q6H PRN GTB ELEVATED SYSTOLIC BP Last administered on 09/06/17 05:33; Admin Dose 0.1 MG; Start 09/02/17 at 21:30 Epoetin Bo (Epogen (Esrd)) 2,000 units MoWeFr@17 SC Last administered on 16:45; Admin Dose 2,000 UNITS; Start 09/05/17 at 17:00 Epoetin Bo (Epogen (Esrd)) 3,000 units MoWeFr@17 SC Last administered on t 16:44; Admin Dose 3,000 UNITS; Start 09/05/17 at 17:00 ABE SILVA MD Sep 06, 2017 09:07
[2017-09-06] MEDS: LISINOPRIL 20 MG TAB PO SCH ×2 (09:08→21:15)
[2017-09-06] MEDS: METOPROLOL 50 MG TAB GTB SCH ×2 (09:08→21:15)
[2017-09-06] MEDS: INSULIN GLARGINE [LANtus] 3 ML PEN SC SCH (09:19)
--- NOTE | 2017-09-06 09:38 | CONS ---
Date/Time of Note Date/Time of Note DATE: 09/06/17 TIME: 09:37 Assessment/Plan Assessment/Plan Additional Assessment/Plan 1. Sepsis due to PNA 2. Acute on chronic renal failure - with severe metabolic acidosis and acute uremic encephalopathy- pt is anuric, started on HD during this admission 3. AMS due to acute uremic encephalopathy + acute metabolic encephalopathy 3. H/o recent admission to [facility] for renal failure 4. H/o chronic resp failure s/p tracheostomy 5. HTN 6. H/o CVA with residual weakness 7.. IDDM 8. 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 IV abx as per ID will follow up Consultation Date/Type/Reason Admit Date/Time Aug 20, 2017 at 17:03 Initial Consult Date 08/20/17 Type of Consultation: NEPHROLOGY Referring Provider: HUSSEIN ROSE Exam/Review of Systems Vital Signs Vitals Vital Signs Date Time Temp Pulse Resp B/P Pulse Ox O2 Delivery O2 Flow Rate FiO2 09/06/17 08:26 74 09/06/17 08:02 98.7 24 133/64 95 09/06/17 07:20 50 09/05/17 12:23 Mechanical Ventilator Intake and Output 09/05/17 09/05/17 09/06/17 15:00 23:00 07:00 Intake Total 880 ml 590 ml Output Total 3500 ml Balance -2620 ml 590 ml Exam Constitutional: non-verbal ENMT: other (+ tracheostomy on ventilator ) Respiratory: congested cough, crackles/rales, diminished breath sounds Cardiovascular: S3, regular rate and rhythm Gastrointestinal: non-tender, soft Musculoskeletal: other (2+ pittign edema ), swelling Neurological: other (non verbal ,lethargic, pt is s/p tracheostomy on ventilator ) Results Result Diagram: 09/06/17 0655 09/06/17 0655 Results 24 hrs Laboratory Tests Test 09/05/17 11:51 09/05/17 17:45 09/05/17 21:58 09/06/17 01:13 Bedside Glucose 125 145 129 124 Test 09/06/17 05:31 09/06/17 06:55 09/06/17 09:07 Bedside Glucose 117 133 White Blood Count 4.4 L Red Blood Count 2.72 L Hemoglobin 7.5 L Hematocrit 24.8 L Mean Corpuscular Volume 91.2 Mean Corpuscular Hemoglobin 27.6 L Mean Corpuscular Hemoglobin Concent 30.2 L Red Cell Distribution Width 14.7 H Platelet Count 153 Mean Platelet Volume 11.2 H Neutrophils % 51.3 Lymphocytes % 35.2 Monocytes % 8.0 Eosinophils % 5.0 Basophils % 0.5 Nucleated Red Blood Cells % 0.0 Neutrophils # 2.3 Lymphocytes # 1.5 Monocytes # 0.4 Eosinophils # 0.2 Basophils # 0.0 Nucleated Red Blood Cells # 0.0 Sodium Level 136 Potassium Level 4.4 Chloride Level 102 Carbon Dioxide Level 29 Anion Gap 9 Blood Urea Nitrogen 54 H Creatinine 3.90 H Glucose Level 111 Calcium Level 8.0 L Medications Medications Current Medications Diagnostic Test (Pha) (Accu-Chek) 1 ea 02 XX Last administered on 08/31/17 01 :33; Admin Dose 1 EA; Start 08/23/17 at 02:00 Miscellaneous Information 1 ea NOTE XX ; Start 08/22/17 at 13:30 Glucose (Glutose) 15 gm Q15M PRN PO DECREASED GLUCOSE; Start 08/22/17 at 13:30 Glucose (Glutose) 22.5 gm Q15M PRN PO DECREASED GLUCOSE; Start 08/22/17 at 13: 30 Dextrose (D50w Syringe) 25 ml Q15M PRN IV DECREASED GLUCOSE Last administered on 09/05/17 01:44; Admin Dose 25 ML; Start 08/22/17 at 13:30 Dextrose (D50w Syringe) 50 ml Q15M PRN IV DECREASED GLUCOSE; Start 08/22/17 at 13:30 Glucagon (Glucagen) 1 mg Q15M PRN IM DECREASED GLUCOSE; Start 08/22/17 at 13:30 Glucose (Glutose) 15 gm Q15M PRN BUCCAL DECREASED GLUCOSE; Start 08/22/17 at 13 :30 Sodium Hypochlorite (Dakin'S (Dilute 1/40%)) 1 applic BID IRR Last administered on 09/06/17 09:07; Admin Dose 1 APPLIC; Start 08/23/17 at 09:00 Metoprolol Tartrate (Lopressor) 50 mg BID GTB Last administered on 09/06/17 09:08; Admin Dose 50 MG; Start 08/24/17 at 21:00 Acetaminophen (Tylenol Tab) 500 mg Q4H PRN PO PAIN AND OR ELEVATED TEMP Last administered on 08/27/17 01:27; Admin Dose 500 MG; Start 08/25/17 at 12:00 Morphine Sulfate (morphine) 2 mg Q4H PRN IV PAIN LEVEL 4-6 Last administered on 09/03/17 20:38; Admin Dose 2 MG; Start 08/25/17 at 12:00 Lansoprazole (Prevacid) 30 mg DAILY@06 GTB Last administered on 09/06/17 05: 32; Admin Dose 30 MG; Start 08/29/17 at 06:00 Insulin Glargine (Lantus) 15 unit DAILY SC Last administered on 09/06/17 09: 19; Admin Dose 15 UNIT; Start 08/29/17 at 20:00 Insulin Aspart (Novolog Insulin Pen) (Adult SC Insulin - Mild Algorithm)... Q4 SC Last administered on 09/05/17 17:51; Admin Dose 1 UNIT; Start 08/31/17 at 16:00 Lisinopril (Zestril) 20 mg BID PO Last administered on 09/06/17 09:08; Admin Dose 20 MG; Start 09/02/17 at 21:00 Clonidine (Catapres) 0.1 mg Q6H PRN GTB ELEVATED SYSTOLIC BP Last administered on 09/06/17 05:33; Admin Dose 0.1 MG; Start 09/02/17 at 21:30 Epoetin Bo (Epogen (Esrd)) 2,000 units MoWeFr@17 SC Last administered on 16:45; Admin Dose 2,000 UNITS; Start 09/05/17 at 17:00 Epoetin Bo (Epogen (Esrd)) 3,000 units MoWeFr@17 SC Last administered on 16:44; Admin Dose 3,000 UNITS; Start 09/05/17 at 17:00 LUCILLE CABALLERO MD Sep 06, 2017 09:38
--- NOTE | 2017-09-06 14:28 | CONS ---
Date/Time of Note Date/Time of Note DATE: 09/06/17 TIME: 14:27 Consult Date/Type/Reason Admit Date/Time Aug 20, 2017 at 17:03 Initial Consult Date 08/20/17 Type of Consultation: id Ordering Provider: HUSSEIN ROSE Objective Vital Signs Date Time Temp Pulse Resp B/P Pulse Ox O2 Delivery O2 Flow Rate FiO2 09/06/17 12:42 72 09/06/17 11:37 98.0 24 126/60 96 09/06/17 11:20 30 09/05/17 12:23 Mechanical Ventilator Intake and Output 09/05/17 09/05/17 09/06/17 15:00 23:00 07:00 Intake Total 880 ml 590 ml Output Total 3500 ml Balance -2620 ml 590 ml Results/Medications Result Diagram: 09/06/17 0655 09/06/17 0655 Results 24 hrs Laboratory Tests Test 09/05/17 17:45 09/05/17 21:58 09/06/17 01:13 09/06/17 05:31 Bedside Glucose 145 129 124 117 Test 09/06/17 06:55 09/06/17 09:07 09/06/17 12:29 White Blood Count 4.4 L Red Blood Count 2.72 L Hemoglobin 7.5 L Hematocrit 24.8 L Mean Corpuscular Volume 91.2 Mean Corpuscular Hemoglobin 27.6 L Mean Corpuscular Hemoglobin Concent 30.2 L Red Cell Distribution Width 14.7 H Platelet Count 153 Mean Platelet Volume 11.2 H Neutrophils % 51.3 Lymphocytes % 35.2 Monocytes % 8.0 Eosinophils % 5.0 Basophils % 0.5 Nucleated Red Blood Cells % 0.0 Neutrophils # 2.3 Lymphocytes # 1.5 Monocytes # 0.4 Eosinophils # 0.2 Basophils # 0.0 Nucleated Red Blood Cells # 0.0 Sodium Level 136 Potassium Level 4.4 Chloride Level 102 Carbon Dioxide Level 29 Anion Gap 9 Blood Urea Nitrogen 54 H Creatinine 3.90 H Glucose Level 111 Calcium Level 8.0 L Bedside Glucose 133 110 Medications Current Medications Diagnostic Test (Pha) (Accu-Chek) 1 ea 02 XX Last administered on 08/31/17t 01 :33; Admin Dose 1 EA; Start 08/23/17 at 02:00 Miscellaneous Information 1 ea NOTE XX ; Start 08/22/17 at 13:30 Glucose (Glutose) 15 gm Q15M PRN PO DECREASED GLUCOSE; Start 08/22/17 at 13:30 Glucose (Glutose) 22.5 gm Q15M PRN PO DECREASED GLUCOSE; Start 08/22/17 at 13: 30 Dextrose (D50w Syringe) 25 ml Q15M PRN IV DECREASED GLUCOSE Last administered on 09/05/17 01:44; Admin Dose 25 ML; Start 08/22/17 at 13:30 Dextrose (D50w Syringe) 50 ml Q15M PRN IV DECREASED GLUCOSE; Start 08/22/17 at 13:30 Glucagon (Glucagen) 1 mg Q15M PRN IM DECREASED GLUCOSE; Start 08/22/17 at 13:30 Glucose (Glutose) 15 gm Q15M PRN BUCCAL DECREASED GLUCOSE; Start 08/22/17 at 13 :30 Sodium Hypochlorite (Dakin'S (Dilute 1/40%)) 1 applic BID IRR Last administered on 09/06/17 09:07; Admin Dose 1 APPLIC; Start 08/23/17 at 09:00 Metoprolol Tartrate (Lopressor) 50 mg BID GTB Last administered on 09/06/17 09:08; Admin Dose 50 MG; Start 08/24/17 at 21:00 Acetaminophen (Tylenol Tab) 500 mg Q4H PRN PO PAIN AND OR ELEVATED TEMP Last administered on 08/27/17 01:27; Admin Dose 500 MG; Start 08/25/17 at 12:00 Morphine Sulfate (morphine) 2 mg Q4H PRN IV PAIN LEVEL 4-6 Last administered on 09/03/17 20:38; Admin Dose 2 MG; Start 08/25/17 at 12:00 Lansoprazole (Prevacid) 30 mg DAILY@06 GTB Last administered on 09/06/17 05: 32; Admin Dose 30 MG; Start 08/29/17 at 06:00 Insulin Glargine (Lantus) 15 unit DAILY SC Last administered on 09/06/17 09: 19; Admin Dose 15 UNIT; Start 08/29/17 at 20:00 Insulin Aspart (Novolog Insulin Pen) (Adult SC Insulin - Mild Algorithm)... Q4 SC Last administered on 09/05/17 17:51; Admin Dose 1 UNIT; Start 08/31/17 at 16:00 Lisinopril (Zestril) 20 mg BID PO Last administered on 09/06/17 09:08; Admin Dose 20 MG; Start 09/02/17 at 21:00 Clonidine (Catapres) 0.1 mg Q6H PRN GTB ELEVATED SYSTOLIC BP Last administered on 09/06/17 05:33; Admin Dose 0.1 MG; Start 09/02/17 at 21:30 Epoetin Bo (Epogen (Esrd)) 2,000 units MoWeFr@17 SC Last administered on 16:45; Admin Dose 2,000 UNITS; Start 09/05/17 at 17:00 Epoetin Bo (Epogen (Esrd)) 3,000 units MoWeFr@17 SC Last administered on 16:44; Admin Dose 3,000 UNITS; Start 09/05/17 at 17:00 Assessment/Plan Chief Complaint/Hosp Course SUBJECTIVE: No acute changes. The patient is lying comfortably in bed. No fevers. ANTIMICROBIALS: none INDWELLINGS: Trach, PEG, Chun, R fem Calos catheter and left upper extremity PICC line. PHYSICAL EXAMINATION: GENERAL: This is a chronically ill-appearing, elderly man in no distress. HEENT: Head atraumatic, normocephalic. Sclerae anicteric. Buccal mucosa dry. NECK: Obese. CHEST: Rise symmetrical. Breath sounds clear, diminished to bases. HEART: S1, S2. ABDOMEN: Soft. Bowel sounds present. EXTREMITIES: With trace edema. ASSESSMENT: 1. Status post septic shock. 2. Acute on chronic respiratory failure . 3. Healthcare-associated pneumonia. 4. Sacral decubitus. 5. 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 6. Diabetes. 7. Chronic encephalopathy. PLAN: Remains hemodynamically stable, off antibiotics, continue local wound care, vent per pulmonary, consider femoral calos change Problems: BISI MARTIN NP Sep 06, 2017 14:28
--- NOTE | 2017-09-06 16:01 | CONS ---
Date/Time of Note Date/Time of Note DATE: 09/06/17 TIME: 15:59 Assessment/Plan Assessment/Plan Additional Assessment/Plan Ventilator setting; AC of 24, tidal volume 450, PEEP of 5, 30% FiO2. Assessment and recommendations; 1. Patient admitted with severe pneumonia and sepsis with significant clinical improvement. Off antibiotics. 2. Chronic respiratory failure. 3. Advanced dementia. 4. Acute renal failure, now requiring hemodialysis. 5. Anemia. 6. Thrombocytopenia with interval improvement. 7. Hypertension or diabetes. Continue current treatment. Overall prognosis remains poor. Consultation Date/Type/Reason Admit Date/Time Aug 20, 2017 at 17:03 Initial Consult Date 08/20/17 Type of Consultation: Pulmonary/critical care Referring Provider: HUSSEIN ROSE 24 HR Interval Summary Free Text/Dictation Patient's condition remains stable. Remains hemodynamically stable. Oxygenation status is improving. Patient's FiO2 has been decreased to 30% from 50% yesterday General exam; elderly male, on ventilator via tracheostomy, unresponsive, currently in no distress. Exam/Review of Systems Vital Signs Vitals Vital Signs Date Time Temp Pulse Resp B/P Pulse Ox O2 Delivery O2 Flow Rate FiO2 09/06/17 15:34 97.9 74 24 136/66 96 09/06/17 15:30 30 09/05/17 12:23 Mechanical Ventilator Intake and Output 09/05/17 09/05/17 09/06/17 15:00 23:00 07:00 Intake Total 880 ml 590 ml Output Total 3500 ml Balance -2620 ml 590 ml Exam HEENT exam; supple neck, no JVD. No lymphadenopathy. Midline trachea. No thyromegaly. Tracheostomy in place. Chest exam; image breath sounds bilaterally. S1-S2 audible, no murmurs. Regular rhythm. Abdomen exam; soft, G-tube in place. No organomegaly. Bowel sounds audible. Extremity exam; no peripheral edema. DENTAL LABORATORY TECHNICIAN exam; patient remains unresponsive. Results Result Diagram: 09/06/17 0655 09/06/17 0655 Results 24 hrs Laboratory Tests Test 09/05/17 17:45 09/05/17 21:58 09/06/17 01:13 09/06/17 05:31 Bedside Glucose 145 129 124 117 Test 09/06/17 06:55 09/06/17 09:07 09/06/17 12:29 White Blood Count 4.4 L Red Blood Count 2.72 L Hemoglobin 7.5 L Hematocrit 24.8 L Mean Corpuscular Volume 91.2 Mean Corpuscular Hemoglobin 27.6 L Mean Corpuscular Hemoglobin Concent 30.2 L Red Cell Distribution Width 14.7 H Platelet Count 153 Mean Platelet Volume 11.2 H Neutrophils % 51.3 Lymphocytes % 35.2 Monocytes % 8.0 Eosinophils % 5.0 Basophils % 0.5 Nucleated Red Blood Cells % 0.0 Neutrophils # 2.3 Lymphocytes # 1.5 Monocytes # 0.4 Eosinophils # 0.2 Basophils # 0.0 Nucleated Red Blood Cells # 0.0 Sodium Level 136 Potassium Level 4.4 Chloride Level 102 Carbon Dioxide Level 29 Anion Gap 9 Blood Urea Nitrogen 54 H Creatinine 3.90 H Glucose Level 111 Calcium Level 8.0 L Bedside Glucose 133 110 Medications Medications Current Medications Diagnostic Test (Pha) (Accu-Chek) 1 ea 02 XX Last administered on 08/31/17 01 :33; Admin Dose 1 EA; Start 08/23/17 at 02:00 Miscellaneous Information 1 ea NOTE XX ; Start 08/22/17 at 13:30 Glucose (Glutose) 15 gm Q15M PRN PO DECREASED GLUCOSE; Start 08/22/17 at 13:30 Glucose (Glutose) 22.5 gm Q15M PRN PO DECREASED GLUCOSE; Start 08/22/17 at 13: 30 Dextrose (D50w Syringe) 25 ml Q15M PRN IV DECREASED GLUCOSE Last administered on 09/05/17 01:44; Admin Dose 25 ML; Start 08/22/17 at 13:30 Dextrose (D50w Syringe) 50 ml Q15M PRN IV DECREASED GLUCOSE; Start 08/22/17 at 13:30 Glucagon (Glucagen) 1 mg Q15M PRN IM DECREASED GLUCOSE; Start 08/22/17 at 13:30 Glucose (Glutose) 15 gm Q15M PRN BUCCAL DECREASED GLUCOSE; Start 08/22/17 at 13 :30 Sodium Hypochlorite (Dakin'S (Dilute 1/40%)) 1 applic BID IRR Last administered on 09/06/17 09:07; Admin Dose 1 APPLIC; Start 08/23/17 at 09:00 Metoprolol Tartrate (Lopressor) 50 mg BID GTB Last administered on 09/06/17 09:08; Admin Dose 50 MG; Start 08/24/17 at 21:00 Acetaminophen (Tylenol Tab) 500 mg Q4H PRN PO PAIN AND OR ELEVATED TEMP Last administered on 08/27/17 01:27; Admin Dose 500 MG; Start 08/25/17 at 12:00 Morphine Sulfate (morphine) 2 mg Q4H PRN IV PAIN LEVEL 4-6 Last administered on 09/03/17 20:38; Admin Dose 2 MG; Start 08/25/17 at 12:00 Lansoprazole (Prevacid) 30 mg DAILY@06 GTB Last administered on 09/06/17 05: 32; Admin Dose 30 MG; Start 08/29/17 at 06:00 Insulin Glargine (Lantus) 15 unit DAILY SC Last administered on 09/06/17 09: 19; Admin Dose 15 UNIT; Start 08/29/17 at 20:00 Insulin Aspart (Novolog Insulin Pen) (Adult SC Insulin - Mild Algorithm)... Q4 SC Last administered on 09/05/17 17:51; Admin Dose 1 UNIT; Start 08/31/17 at 16:00 Lisinopril (Zestril) 20 mg BID PO Last administered on 09/06/17 09:08; Admin Dose 20 MG; Start 09/02/17 at 21:00 Clonidine (Catapres) 0.1 mg Q6H PRN GTB ELEVATED SYSTOLIC BP Last administered on 09/06/17 05:33; Admin Dose 0.1 MG; Start 09/02/17 at 21:30 Epoetin Bo (Epogen (Esrd)) 2,000 units MoWeFr@17 SC Last administered on 16:45; Admin Dose 2,000 UNITS; Start 09/05/17 at 17:00 Epoetin Bo (Epogen (Esrd)) 3,000 units MoWeFr@17 SC Last administered on 16:44; Admin Dose 3,000 UNITS; Start 09/05/17 at 17:00 ODETTE MCKEON Sep 06, 2017 16:01
[2017-09-07] VITALS (33 sets, daily range): BP systolic 116–151; BP diastolic 56–76; PULSE 24–98; RESP 18–24
[2017-09-07] MEDS: INSULIN ASPART [NOVOLOG] 3 ML PEN SC SCH ×6 (01:00→21:00)
[2017-09-07] MEDS: ACCU-CHEK XX SCH (02:00)
[2017-09-07] MEDS: LANSOPRAZOLE 30 MG CAP GTB SCH (05:43)
[2017-09-07] MEDS: METOPROLOL 50 MG TAB GTB SCH ×2 (08:56→21:00)
[2017-09-07] MEDS: INSULIN GLARGINE [LANtus] 3 ML PEN SC SCH (08:56)
[2017-09-07] MEDS: SODIUM HYPOCHLORITE 1/40% 1L IRRIG IRR SCH ×2 (08:56→21:00)
[2017-09-07] MEDS: LISINOPRIL 20 MG TAB PO SCH ×2 (08:57→21:00)
[2017-09-07] MEDS ORDERED: SOD CHLORIDE 0.9% 250 ML IV* ONE (10:17)
--- NOTE | 2017-09-07 11:03 | PN ---
Date/Time of Note Date/Time of Note DATE: 09/07/17 TIME: 11:02 Assessment/Plan VTE Prophylaxis VTE Prophylaxis Intervention: SCD's Lines/Catheters IV [facility] PICC Line Central line still needed: Yes Urinary Cath still in place: No Assessment/Plan Chief Complaint/Hosp Course No acute events overnight, hemoglobin is 7.5 we will transfuse 1 unit of packed red blood cells with hemodialysis today Assessment/Plan -Acute on chronic CKD. Continue hemodialysis. Dr. Nieto is following in nephrology consultation. -Ventilator dependent respiratory failure with tracheostomy. -Pulmonary edema versus multifocal pneumonia, status post treatment with antibiotics. Dr Hill is following in infection disease consultation -Positive troponin in the setting of renal disease, Dr. Zuniga is following in cardiology consultation -Acute metabolic encephalopathy -Anemia, s/p blood transfusion, continue Epogen, continue to monitor hemoglobin and hematocrit -DM, continue Lantus, NovoLog per sliding scale. -Dysphagia with PEG -Sacral wound Further recommendations based on clinical course. Plan of care discussed with Dr. Chávez. Problems: Exam/Review of Systems Vital Signs Vitals Vital Signs Date Time Temp Pulse Resp B/P Pulse Ox O2 Delivery O2 Flow Rate FiO2 09/07/17 09:30 73 24 96 30 09/07/17 07:39 98.0 135/65 09/05/17 12:23 Mechanical Ventilator Intake and Output 09/06/17 09/06/17 09/07/17 15:00 23:00 07:00 Intake Total 580 ml 590 ml Balance 580 ml 590 ml Exam Constitutional: non-verbal Head: normocephalic Neck: supple Respiratory: diminished breath sounds Cardiovascular: nl pulses Gastrointestinal: non-tender, other (G-tube), soft Extremities: edema Results Result Diagram: 09/07/17 0800 09/07/17 0800 Results 24 hrs Laboratory Tests Test 09/06/17 12:29 09/06/17 17:14 09/06/17 21:05 09/07/17 00:45 Bedside Glucose 110 72 97 102 Test 09/07/17 05:41 09/07/17 08:00 09/07/17 08:55 Bedside Glucose 92 133 White Blood Count 4.3 L Red Blood Count 2.65 L Hemoglobin 7.4 L Hematocrit 24.3 L Mean Corpuscular Volume 91.7 Mean Corpuscular Hemoglobin 27.9 L Mean Corpuscular Hemoglobin Concent 30.5 L Red Cell Distribution Width 14.6 H Platelet Count 179 Mean Platelet Volume 10.8 H Neutrophils % 57.2 Lymphocytes % 30.3 Monocytes % 7.3 Eosinophils % 4.5 Basophils % 0.5 Nucleated Red Blood Cells % 0.0 Neutrophils # 2.4 Lymphocytes # 1.3 Monocytes # 0.3 Eosinophils # 0.2 Basophils # 0.0 Nucleated Red Blood Cells # 0.0 Sodium Level 136 Potassium Level 5.0 Chloride Level 101 Carbon Dioxide Level 28 Anion Gap 12 Blood Urea Nitrogen 61 H Creatinine 4.38 H Glucose Level 109 Calcium Level 7.6 L Medications Medications Current Medications Diagnostic Test (Pha) (Accu-Chek) 1 ea 02 XX Last administered on 08/31/17 01 :33; Admin Dose 1 EA; Start 08/23/17 at 02:00 Miscellaneous Information 1 ea NOTE XX ; Start 08/22/17 at 13:30 Glucose (Glutose) 15 gm Q15M PRN PO DECREASED GLUCOSE; Start 08/22/17 at 13:30 Glucose (Glutose) 22.5 gm Q15M PRN PO DECREASED GLUCOSE; Start 08/22/17 at 13: 30 Dextrose (D50w Syringe) 25 ml Q15M PRN IV DECREASED GLUCOSE Last administered on 09/05/17 01:44; Admin Dose 25 ML; Start 08/22/17 at 13:30 Dextrose (D50w Syringe) 50 ml Q15M PRN IV DECREASED GLUCOSE; Start 08/22/17 at 13:30 Glucagon (Glucagen) 1 mg Q15M PRN IM DECREASED GLUCOSE; Start 08/22/17 at 13:30 Glucose (Glutose) 15 gm Q15M PRN BUCCAL DECREASED GLUCOSE; Start 08/22/17 at 13 :30 Sodium Hypochlorite (Dakin'S (Dilute 1/40%)) 1 applic BID IRR Last administered on 09/07/17 08:56; Admin Dose 1 APPLIC; Start 08/23/17 at 09:00 Metoprolol Tartrate (Lopressor) 50 mg BID GTB Last administered on 09/06/17 21:15; Admin Dose 50 MG; Start 08/24/17 at 21:00 Acetaminophen (Tylenol Tab) 500 mg Q4H PRN PO PAIN AND OR ELEVATED TEMP Last administered on 08/27/17 01:27; Admin Dose 500 MG; Start 08/25/17 at 12:00 Morphine Sulfate (morphine) 2 mg Q4H PRN IV PAIN LEVEL 4-6 Last administered on 09/03/17 20:38; Admin Dose 2 MG; Start 08/25/17 at 12:00 Lansoprazole (Prevacid) 30 mg DAILY@06 GTB Last administered on 09/07/17 05: 43; Admin Dose 30 MG; Start 08/29/17 at 06:00 Insulin Glargine (Lantus) 15 unit DAILY SC Last administered on 09/07/17 08: 56; Admin Dose 15 UNIT; Start 08/29/17 at 20:00 Insulin Aspart (Novolog Insulin Pen) (Adult SC Insulin - Mild Algorithm)... Q4 SC Last administered on 09/05/17 17:51; Admin Dose 1 UNIT; Start 08/31/17 at 16:00 Lisinopril (Zestril) 20 mg BID PO Last administered on 09/06/17 21:15; Admin Dose 20 MG; Start 09/02/17 at 21:00 Clonidine (Catapres) 0.1 mg Q6H PRN GTB ELEVATED SYSTOLIC BP Last administered on 09/06/17 05:33; Admin Dose 0.1 MG; Start 09/02/17 at 21:30 Epoetin Bo (Epogen (Esrd)) 2,000 units MoWeFr@17 SC Last administered on 16:45; Admin Dose 2,000 UNITS; Start 09/05/17 at 17:00 Epoetin Bo (Epogen (Esrd)) 3,000 units MoWeFr@17 SC Last administered on 16:44; Admin Dose 3,000 UNITS; Start 09/05/17 at 17:00 ARLETH MCKNIGHT Sep 07, 2017 11:03
--- NOTE | 2017-09-07 11:30 | CONS ---
Date/Time of Note Date/Time of Note DATE: 09/07/17 TIME: 11:25 Assessment/Plan Assessment/Plan Chief Complaint/Hosp Course IMPRESSION: 1. Positive troponin-in the setting of renal failure-No sig uptrend 2. Abnormal electrocardiogram, nonspecific ST-T abnormalities. 3. Hypertension-well controlled 4. Respiratory failure, chronic. 5. Renal failure, acute on chronic. 6. Dysphagia, status post G-tube. 7. Anemia-ongoing 8. Thrombocytopenia-Slowly improving 9. Encephalopathy. 10. History of CVA. 11. Diabetes mellitus. 12. Hypokalemia 14. Cardiomyopathy-depressed EF 40% Recc: -Tele -Continue BB/ACEI with uptitration to improve BP control -trend cardiac enzymes -follow volume status with HD for volume removal ongoing today -Will consider asa if platelet count/Hgb remains stable -Continue abx's and f/u cx data Problems: Consultation Date/Type/Reason Admit Date/Time Aug 20, 2017 at 17:03 Initial Consult Date 08/20/17 Type of Consultation: Cardiology Reason for Consultation positive troponin Referring Provider: HUSSEIN ROSE Exam/Review of Systems Vital Signs Vitals Vital Signs Date Time Temp Pulse Resp B/P Pulse Ox O2 Delivery O2 Flow Rate FiO2 09/07/17 11:08 75 24 96 30 09/07/17 07:39 98.0 135/65 09/05/17 12:23 Mechanical Ventilator Intake and Output 09/06/17 09/06/17 09/07/17 15:00 23:00 07:00 Intake Total 580 ml 590 ml Balance 580 ml 590 ml Exam Review of Systems: CONSTITUTIONAL: No fevers, chills. PULMONARY: No sob CARDIOVASCULAR: No chest pain/palpitations GASTROINTESTINAL: No nausea/vomiting. GENITOURINARY: No hematuria/dysuria. MUSCULOSKELETAL: No myagias/arthalgias. PSYCHIATRIC: The patient denies depression. NEUROLOGIC: No weakness Constitutional: other (encephalopathic) Psych: no complaints Head: normocephalic ENMT: mucosa pink and moist Neck: jvd (9 cm water), supple Respiratory: diminished breath sounds (at bases/B) Cardiovascular: regular rate and rhythm Gastrointestinal: non-tender, soft Musculoskeletal: muscle tone (normal) Extremities: edema (nonw) Neurological: other (No focal deficits) Results Result Diagram: 09/07/17 0800 09/07/17 0800 Results 24 hrs Laboratory Tests Test 09/06/17 12:29 09/06/17 17:14 09/06/17 21:05 09/07/17 00:45 Bedside Glucose 110 72 97 102 Test 09/07/17 05:41 09/07/17 08:00 09/07/17 08:55 Bedside Glucose 92 133 White Blood Count 4.3 L Red Blood Count 2.65 L Hemoglobin 7.4 L Hematocrit 24.3 L Mean Corpuscular Volume 91.7 Mean Corpuscular Hemoglobin 27.9 L Mean Corpuscular Hemoglobin Concent 30.5 L Red Cell Distribution Width 14.6 H Platelet Count 179 Mean Platelet Volume 10.8 H Neutrophils % 57.2 Lymphocytes % 30.3 Monocytes % 7.3 Eosinophils % 4.5 Basophils % 0.5 Nucleated Red Blood Cells % 0.0 Neutrophils # 2.4 Lymphocytes # 1.3 Monocytes # 0.3 Eosinophils # 0.2 Basophils # 0.0 Nucleated Red Blood Cells # 0.0 Sodium Level 136 Potassium Level 5.0 Chloride Level 101 Carbon Dioxide Level 28 Anion Gap 12 Blood Urea Nitrogen 61 H Creatinine 4.38 H Glucose Level 109 Calcium Level 7.6 L Medications Medications Current Medications Diagnostic Test (Pha) (Accu-Chek) 1 ea 02 XX Last administered on 08/31/17 01 :33; Admin Dose 1 EA; Start 08/23/17 at 02:00 Miscellaneous Information 1 ea NOTE XX ; Start 08/22/17 at 13:30 Glucose (Glutose) 15 gm Q15M PRN PO DECREASED GLUCOSE; Start 08/22/17 at 13:30 Glucose (Glutose) 22.5 gm Q15M PRN PO DECREASED GLUCOSE; Start 08/22/17 at 13: 30 Dextrose (D50w Syringe) 25 ml Q15M PRN IV DECREASED GLUCOSE Last administered on 09/05/17 01:44; Admin Dose 25 ML; Start 08/22/17 at 13:30 Dextrose (D50w Syringe) 50 ml Q15M PRN IV DECREASED GLUCOSE; Start 08/22/17 at 13:30 Glucagon (Glucagen) 1 mg Q15M PRN IM DECREASED GLUCOSE; Start 08/22/17 at 13:30 Glucose (Glutose) 15 gm Q15M PRN BUCCAL DECREASED GLUCOSE; Start 08/22/17 at 13 :30 Sodium Hypochlorite (Dakin'S (Dilute 1/40%)) 1 applic BID IRR Last administered on 09/07/17 08:56; Admin Dose 1 APPLIC; Start 08/23/17 at 09:00 Metoprolol Tartrate (Lopressor) 50 mg BID GTB Last administered on 09/06/17 21:15; Admin Dose 50 MG; Start 08/24/17 at 21:00 Acetaminophen (Tylenol Tab) 500 mg Q4H PRN PO PAIN AND OR ELEVATED TEMP Last administered on 08/27/17 01:27; Admin Dose 500 MG; Start 08/25/17 at 12:00 Morphine Sulfate (morphine) 2 mg Q4H PRN IV PAIN LEVEL 4-6 Last administered on 09/03/17 20:38; Admin Dose 2 MG; Start 08/25/17 at 12:00 Lansoprazole (Prevacid) 30 mg DAILY@06 GTB Last administered on 09/07/17 05: 43; Admin Dose 30 MG; Start 08/29/17 at 06:00 Insulin Glargine (Lantus) 15 unit DAILY SC Last administered on 09/07/17 08: 56; Admin Dose 15 UNIT; Start 08/29/17 at 20:00 Insulin Aspart (Novolog Insulin Pen) (Adult SC Insulin - Mild Algorithm)... Q4 SC Last administered on 09/05/17 17:51; Admin Dose 1 UNIT; Start 08/31/17 at 16:00 Lisinopril (Zestril) 20 mg BID PO Last administered on 09/06/17 21:15; Admin Dose 20 MG; Start 09/02/17 at 21:00 Clonidine (Catapres) 0.1 mg Q6H PRN GTB ELEVATED SYSTOLIC BP Last administered on 09/06/17 05:33; Admin Dose 0.1 MG; Start 09/02/17 at 21:30 Epoetin Bo (Epogen (Esrd)) 2,000 units MoWeFr@17 SC Last administered on 16:45; Admin Dose 2,000 UNITS; Start 09/05/17 at 17:00 Epoetin Bo (Epogen (Esrd)) 3,000 units MoWeFr@17 SC Last administered on 16:44; Admin Dose 3,000 UNITS; Start 09/05/17 at 17:00 BRENTON NORTON Sep 07, 2017 11:30
--- NOTE | 2017-09-07 13:03 | CONS ---
Date/Time of Note Date/Time of Note DATE: 09/07/17 TIME: 13:03 Consult Date/Type/Reason Admit Date/Time Aug 20, 2017 at 17:03 Initial Consult Date 08/20/17 Type of Consultation: id Ordering Provider: HUSSEIN ROSE Objective Vital Signs Date Time Temp Pulse Resp B/P Pulse Ox O2 Delivery O2 Flow Rate FiO2 09/07/17 12:47 75 09/07/17 12:08 98.4 19 120/60 95 09/07/17 11:08 30 09/05/17 12:23 Mechanical Ventilator Intake and Output 09/06/17 09/06/17 09/07/17 15:00 23:00 07:00 Intake Total 580 ml 590 ml Balance 580 ml 590 ml Results/Medications Result Diagram: 09/07/17 0800 09/07/17 0800 Results 24 hrs Laboratory Tests Test 09/06/17 17:14 09/06/17 21:05 09/07/17 00:45 09/07/17 05:41 Bedside Glucose 72 97 102 92 Test 09/07/17 08:00 09/07/17 08:55 09/07/17 12:39 White Blood Count 4.3 L Red Blood Count 2.65 L Hemoglobin 7.4 L Hematocrit 24.3 L Mean Corpuscular Volume 91.7 Mean Corpuscular Hemoglobin 27.9 L Mean Corpuscular Hemoglobin Concent 30.5 L Red Cell Distribution Width 14.6 H Platelet Count 179 Mean Platelet Volume 10.8 H Neutrophils % 57.2 Lymphocytes % 30.3 Monocytes % 7.3 Eosinophils % 4.5 Basophils % 0.5 Nucleated Red Blood Cells % 0.0 Neutrophils # 2.4 Lymphocytes # 1.3 Monocytes # 0.3 Eosinophils # 0.2 Basophils # 0.0 Nucleated Red Blood Cells # 0.0 Sodium Level 136 Potassium Level 5.0 Chloride Level 101 Carbon Dioxide Level 28 Anion Gap 12 Blood Urea Nitrogen 61 H Creatinine 4.38 H Glucose Level 109 Calcium Level 7.6 L Bedside Glucose 133 82 Medications Current Medications Diagnostic Test (Pha) (Accu-Chek) 1 ea 02 XX Last administered on 08/31/17t 01 :33; Admin Dose 1 EA; Start 08/23/17 at 02:00 Miscellaneous Information 1 ea NOTE XX ; Start 08/22/17 at 13:30 Glucose (Glutose) 15 gm Q15M PRN PO DECREASED GLUCOSE; Start 08/22/17 at 13:30 Glucose (Glutose) 22.5 gm Q15M PRN PO DECREASED GLUCOSE; Start 08/22/17 at 13: 30 Dextrose (D50w Syringe) 25 ml Q15M PRN IV DECREASED GLUCOSE Last administered on 09/05/17 01:44; Admin Dose 25 ML; Start 08/22/17 at 13:30 Dextrose (D50w Syringe) 50 ml Q15M PRN IV DECREASED GLUCOSE; Start 08/22/17 at 13:30 Glucagon (Glucagen) 1 mg Q15M PRN IM DECREASED GLUCOSE; Start 08/22/17 at 13:30 Glucose (Glutose) 15 gm Q15M PRN BUCCAL DECREASED GLUCOSE; Start 08/22/17 at 13 :30 Sodium Hypochlorite (Dakin'S (Dilute 1/40%)) 1 applic BID IRR Last administered on 09/07/17 08:56; Admin Dose 1 APPLIC; Start 08/23/17 at 09:00 Metoprolol Tartrate (Lopressor) 50 mg BID GTB Last administered on 09/06/17 21:15; Admin Dose 50 MG; Start 08/24/17 at 21:00 Acetaminophen (Tylenol Tab) 500 mg Q4H PRN PO PAIN AND OR ELEVATED TEMP Last administered on 08/27/17 01:27; Admin Dose 500 MG; Start 08/25/17 at 12:00 Morphine Sulfate (morphine) 2 mg Q4H PRN IV PAIN LEVEL 4-6 Last administered on 09/03/17 20:38; Admin Dose 2 MG; Start 08/25/17 at 12:00 Lansoprazole (Prevacid) 30 mg DAILY@06 GTB Last administered on 09/07/17 05: 43; Admin Dose 30 MG; Start 08/29/17 at 06:00 Insulin Glargine (Lantus) 15 unit DAILY SC Last administered on 09/07/17 08: 56; Admin Dose 15 UNIT; Start 08/29/17 at 20:00 Insulin Aspart (Novolog Insulin Pen) (Adult SC Insulin - Mild Algorithm)... Q4 SC Last administered on 09/05/17 17:51; Admin Dose 1 UNIT; Start 08/31/17 at 16:00 Lisinopril (Zestril) 20 mg BID PO Last administered on 09/06/17 21:15; Admin Dose 20 MG; Start 09/02/17 at 21:00 Clonidine (Catapres) 0.1 mg Q6H PRN GTB ELEVATED SYSTOLIC BP Last administered on 09/06/17 05:33; Admin Dose 0.1 MG; Start 09/02/17 at 21:30 Epoetin Bo (Epogen (Esrd)) 2,000 units MoWeFr@17 SC Last administered on 16:45; Admin Dose 2,000 UNITS; Start 09/05/17 at 17:00 Epoetin Bo (Epogen (Esrd)) 3,000 units MoWeFr@17 SC Last administered on 16:44; Admin Dose 3,000 UNITS; Start 09/05/17 at 17:00 Assessment/Plan Chief Complaint/Hosp Course SUBJECTIVE: No acute changes. The patient is lying comfortably in bed. No fevers. ANTIMICROBIALS: none INDWELLINGS: Trach, PEG, Chun, R fem Calos catheter and left upper extremity PICC line. PHYSICAL EXAMINATION: GENERAL: This is a chronically ill-appearing, elderly man in no distress. HEENT: Head atraumatic, normocephalic. Sclerae anicteric. Buccal mucosa dry. NECK: Obese. CHEST: Rise symmetrical. Breath sounds clear, diminished to bases. HEART: S1, S2. ABDOMEN: Soft. Bowel sounds present. EXTREMITIES: With trace edema. ASSESSMENT: 1. Status post septic shock. 2. Acute on chronic respiratory failure . 3. Healthcare-associated pneumonia==> completed abx. 4. Sacral decubitus. 5. 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 6. Diabetes. 7. Chronic encephalopathy. PLAN: Remains hemodynamically stable, off antibiotics, continue local wound care, vent per pulmonary, consider femoral calos change Problems: BISI MARTIN NP Sep 07, 2017 13:03
--- NOTE | 2017-09-07 13:19 | CONS ---
Date/Time of Note Date/Time of Note DATE: 09/07/17 TIME: 13:16 Assessment/Plan Assessment/Plan Additional Assessment/Plan Ventilator setting; AC of 24, tidal volume 450, PEEP of 5, 30% FiO2. assessment and recommendations; 1. Patient admitted with severe sepsis with interval improvement, off antibiotics now. 2. Chronic respiratory failure. 3. Anemia and thrombocytopenia. 4. Renal failure, requiring hemodialysis. 5. History of hypertension or diabetes. Continue current supportive care. Prognosis is poor. Consultation Date/Type/Reason Admit Date/Time Aug 20, 2017 at 17:03 Initial Consult Date 08/20/17 Type of Consultation: Pulmonary Referring Provider: HUSSEIN ROSE 24 HR Interval Summary Free Text/Dictation Patient's condition is stable. Remains unresponsive due to anoxic brain injury. Also remains chronically ventilator dependent. Has remained hemodynamically stable. General exam; elderly male, on ventilator via tracheostomy. Currently in no distress. Exam/Review of Systems Vital Signs Vitals Vital Signs Date Time Temp Pulse Resp B/P Pulse Ox O2 Delivery O2 Flow Rate FiO2 09/07/17 12:47 75 09/07/17 12:08 98.4 19 120/60 95 09/07/17 11:08 30 09/05/17 12:23 Mechanical Ventilator Intake and Output 09/06/17 09/06/17 09/07/17 14:59 22:59 06:59 Intake Total 580 ml 590 ml Balance 580 ml 590 ml Exam HEENT exam; supple neck, no JVD. No lymphadenopathy. Midline trachea. No thyromegaly. Tracheostomy in place. Chest exam; diminished but clear breath sounds. S1-S2 audible, no murmurs. Regular rhythm. Abdomen exam; soft, G-tube in place. No organomegaly. Bowel sounds audible. Extremity exam; no peripheral edema. OCEAN EXPORT ACCOUNT MANAGER exam; patient remains unresponsive. Results Result Diagram: 09/07/17 0800 09/07/17 0800 Results 24 hrs Laboratory Tests Test 09/06/17 17:14 09/06/17 21:05 09/07/17 00:45 09/07/17 05:41 Bedside Glucose 72 97 102 92 Test 09/07/17 08:00 09/07/17 08:55 09/07/17 12:39 White Blood Count 4.3 L Red Blood Count 2.65 L Hemoglobin 7.4 L Hematocrit 24.3 L Mean Corpuscular Volume 91.7 Mean Corpuscular Hemoglobin 27.9 L Mean Corpuscular Hemoglobin Concent 30.5 L Red Cell Distribution Width 14.6 H Platelet Count 179 Mean Platelet Volume 10.8 H Neutrophils % 57.2 Lymphocytes % 30.3 Monocytes % 7.3 Eosinophils % 4.5 Basophils % 0.5 Nucleated Red Blood Cells % 0.0 Neutrophils # 2.4 Lymphocytes # 1.3 Monocytes # 0.3 Eosinophils # 0.2 Basophils # 0.0 Nucleated Red Blood Cells # 0.0 Sodium Level 136 Potassium Level 5.0 Chloride Level 101 Carbon Dioxide Level 28 Anion Gap 12 Blood Urea Nitrogen 61 H Creatinine 4.38 H Glucose Level 109 Calcium Level 7.6 L Bedside Glucose 133 82 Medications Medications Current Medications Diagnostic Test (Pha) (Accu-Chek) 1 ea 02 XX Last administered on 08/31/17 01 :33; Admin Dose 1 EA; Start 08/23/17 at 02:00 Miscellaneous Information 1 ea NOTE XX ; Start 08/22/17 at 13:30 Glucose (Glutose) 15 gm Q15M PRN PO DECREASED GLUCOSE; Start 08/22/17 at 13:30 Glucose (Glutose) 22.5 gm Q15M PRN PO DECREASED GLUCOSE; Start 08/22/17 at 13: 30 Dextrose (D50w Syringe) 25 ml Q15M PRN IV DECREASED GLUCOSE Last administered on 09/05/17 01:44; Admin Dose 25 ML; Start 08/22/17 at 13:30 Dextrose (D50w Syringe) 50 ml Q15M PRN IV DECREASED GLUCOSE; Start 08/22/17 at 13:30 Glucagon (Glucagen) 1 mg Q15M PRN IM DECREASED GLUCOSE; Start 08/22/17 at 13:30 Glucose (Glutose) 15 gm Q15M PRN BUCCAL DECREASED GLUCOSE; Start 08/22/17 at 13 :30 Sodium Hypochlorite (Dakin'S (Dilute 1/40%)) 1 applic BID IRR Last administered on 09/07/17 08:56; Admin Dose 1 APPLIC; Start 08/23/17 at 09:00 Metoprolol Tartrate (Lopressor) 50 mg BID GTB Last administered on 09/06/17 21:15; Admin Dose 50 MG; Start 08/24/17 at 21:00 Acetaminophen (Tylenol Tab) 500 mg Q4H PRN PO PAIN AND OR ELEVATED TEMP Last administered on 08/27/17 01:27; Admin Dose 500 MG; Start 08/25/17 at 12:00 Morphine Sulfate (morphine) 2 mg Q4H PRN IV PAIN LEVEL 4-6 Last administered on 09/03/17 20:38; Admin Dose 2 MG; Start 08/25/17 at 12:00 Lansoprazole (Prevacid) 30 mg DAILY@06 GTB Last administered on 09/07/17 05: 43; Admin Dose 30 MG; Start 08/29/17 at 06:00 Insulin Glargine (Lantus) 15 unit DAILY SC Last administered on 09/07/17 08: 56; Admin Dose 15 UNIT; Start 08/29/17 at 20:00 Insulin Aspart (Novolog Insulin Pen) (Adult SC Insulin - Mild Algorithm)... Q4 SC Last administered on 09/05/17 17:51; Admin Dose 1 UNIT; Start 08/31/17 at 16:00 Lisinopril (Zestril) 20 mg BID PO Last administered on 09/06/17 21:15; Admin Dose 20 MG; Start 09/02/17 at 21:00 Clonidine (Catapres) 0.1 mg Q6H PRN GTB ELEVATED SYSTOLIC BP Last administered on 09/06/17 05:33; Admin Dose 0.1 MG; Start 09/02/17 at 21:30 Epoetin Bo (Epogen (Esrd)) 2,000 units MoWeFr@17 SC Last administered on 16:45; Admin Dose 2,000 UNITS; Start 09/05/17 at 17:00 Epoetin Bo (Epogen (Esrd)) 3,000 units MoWeFr@17 SC Last administered on 16:44; Admin Dose 3,000 UNITS; Start 09/05/17 at 17:00 ODETTE MCKEON Sep 07, 2017 13:19
--- NOTE | 2017-09-07 16:31 | CONS ---
Date/Time of Note Date/Time of Note DATE: 09/07/17 TIME: 16:30 Assessment/Plan Assessment/Plan Additional Assessment/Plan 1. Sepsis due to PNA 2. Acute on chronic renal failure - with severe metabolic acidosis and acute uremic encephalopathy- pt is anuric, started on HD during this admission 3. AMS due to acute uremic encephalopathy + acute metabolic encephalopathy 3. H/o recent admission to [facility] for renal failure 4. H/o chronic resp failure s/p tracheostomy 5. HTN 6. H/o CVA with residual weakness 7.. IDDM 8. Anemia,severe, anemia of chronic disease, Plan: started on HD during this admission,HD today, Hepatitis panel, HIV negative pt will be intermediate HD patient., plan for permacath placement by tomorrow , NPO after midnight and IVF D51/2NS at 30 cc/hr post midnight Outpatient HD placement is requested at [facility] IV abx as per ID will follow up Consultation Date/Type/Reason Admit Date/Time Aug 20, 2017 at 17:03 Initial Consult Date 08/20/17 Type of Consultation: NEPHROLOGY Referring Provider: HUSSEIN ROSE 24 HR Interval Summary Free Text/Dictation Plan for permacath placement tomorrow, plan for HD today Exam/Review of Systems Vital Signs Vitals Vital Signs Date Time Temp Pulse Resp B/P Pulse Ox O2 Delivery O2 Flow Rate FiO2 09/07/17 16:00 78 09/07/17 15:21 98.1 18 140/68 96 09/07/17 15:05 30 09/05/17 12:23 Mechanical Ventilator Intake and Output 09/06/17 09/06/17 09/07/17 15:00 23:00 07:00 Intake Total 580 ml 590 ml Balance 580 ml 590 ml Results Result Diagram: 09/07/17 0800 09/07/17 0800 Results 24 hrs Laboratory Tests Test 09/06/17 17:14 09/06/17 21:05 09/07/17 00:45 09/07/17 05:41 Bedside Glucose 72 97 102 92 Test 09/07/17 08:00 09/07/17 08:55 09/07/17 12:39 White Blood Count 4.3 L Red Blood Count 2.65 L Hemoglobin 7.4 L Hematocrit 24.3 L Mean Corpuscular Volume 91.7 Mean Corpuscular Hemoglobin 27.9 L Mean Corpuscular Hemoglobin Concent 30.5 L Red Cell Distribution Width 14.6 H Platelet Count 179 Mean Platelet Volume 10.8 H Neutrophils % 57.2 Lymphocytes % 30.3 Monocytes % 7.3 Eosinophils % 4.5 Basophils % 0.5 Nucleated Red Blood Cells % 0.0 Neutrophils # 2.4 Lymphocytes # 1.3 Monocytes # 0.3 Eosinophils # 0.2 Basophils # 0.0 Nucleated Red Blood Cells # 0.0 Sodium Level 136 Potassium Level 5.0 Chloride Level 101 Carbon Dioxide Level 28 Anion Gap 12 Blood Urea Nitrogen 61 H Creatinine 4.38 H Glucose Level 109 Calcium Level 7.6 L Bedside Glucose 133 82 Medications Medications Current Medications Diagnostic Test (Pha) (Accu-Chek) 1 ea 02 XX Last administered on 08/31/17 01 :33; Admin Dose 1 EA; Start 08/23/17 at 02:00 Miscellaneous Information 1 ea NOTE XX ; Start 08/22/17 at 13:30 Glucose (Glutose) 15 gm Q15M PRN PO DECREASED GLUCOSE; Start 08/22/17 at 13:30 Glucose (Glutose) 22.5 gm Q15M PRN PO DECREASED GLUCOSE; Start 08/22/17 at 13: 30 Dextrose (D50w Syringe) 25 ml Q15M PRN IV DECREASED GLUCOSE Last administered on 09/05/17 01:44; Admin Dose 25 ML; Start 08/22/17 at 13:30 Dextrose (D50w Syringe) 50 ml Q15M PRN IV DECREASED GLUCOSE; Start 08/22/17 at 13:30 Glucagon (Glucagen) 1 mg Q15M PRN IM DECREASED GLUCOSE; Start 08/22/17 at 13:30 Glucose (Glutose) 15 gm Q15M PRN BUCCAL DECREASED GLUCOSE; Start 08/22/17 at 13 :30 Sodium Hypochlorite (Dakin'S (Dilute 1/40%)) 1 applic BID IRR Last administered on 09/07/17 08:56; Admin Dose 1 APPLIC; Start 08/23/17 at 09:00 Metoprolol Tartrate (Lopressor) 50 mg BID GTB Last administered on 09/06/17 21:15; Admin Dose 50 MG; Start 08/24/17 at 21:00 Acetaminophen (Tylenol Tab) 500 mg Q4H PRN PO PAIN AND OR ELEVATED TEMP Last administered on 08/27/17 01:27; Admin Dose 500 MG; Start 08/25/17 at 12:00 Morphine Sulfate (morphine) 2 mg Q4H PRN IV PAIN LEVEL 4-6 Last administered on 09/03/17 20:38; Admin Dose 2 MG; Start 08/25/17 at 12:00 Lansoprazole (Prevacid) 30 mg DAILY@06 GTB Last administered on 09/07/17 05: 43; Admin Dose 30 MG; Start 08/29/17 at 06:00 Insulin Glargine (Lantus) 15 unit DAILY SC Last administered on 09/07/17 08: 56; Admin Dose 15 UNIT; Start 08/29/17 at 20:00 Insulin Aspart (Novolog Insulin Pen) (Adult SC Insulin - Mild Algorithm)... Q4 SC Last administered on 09/05/17 17:51; Admin Dose 1 UNIT; Start 08/31/17 at 16:00 Lisinopril (Zestril) 20 mg BID PO Last administered on 09/06/17 21:15; Admin Dose 20 MG; Start 09/02/17 at 21:00 Clonidine (Catapres) 0.1 mg Q6H PRN GTB ELEVATED SYSTOLIC BP Last administered on 09/06/17 05:33; Admin Dose 0.1 MG; Start 09/02/17 at 21:30 Epoetin Bo (Epogen (Esrd)) 2,000 units MoWeFr@17 SC Last administered on 16:45; Admin Dose 2,000 UNITS; Start 09/05/17 at 17:00 Epoetin Bo 3000 units 3,000 units MoWeFr@17 SC Last administered on 16:44; Admin Dose 3,000 UNITS; Start 09/05/17 at 17:00 Dextrose/Sodium Chloride (D5-1/2ns) 1,000 ml @ 30 mls/hr Q24H IV ; Start 09/08 at 00:00 LUCILLE CABALLERO MD Sep 07, 2017 16:31
[2017-09-07] MEDS: DEXTROSE 50% 50 ML SYRINGE IV PRN ×2 (17:50→21:54)
[2017-09-07] MEDS: EPOETIN 3000 UNITS/1 ML INJ (ESRD) SC SCH (17:51)
[2017-09-07] MEDS: EPOETIN 2000 UNITS/1 ML INJ (ESRD) SC SCH (17:53)
[2017-09-07] MEDS: DEXTROSE 5%-0.45% NACL 1,000 ML IV SCH (23:03)
[2017-09-08] VITALS (22 sets, daily range): BP systolic 134–165; BP diastolic 71–81; PULSE 75–79; RESP 18–24
[2017-09-08] MEDS ORDERED: DEXTROSE 5%-0.45% NACL 1,000 ML IV SCH
[2017-09-08] MEDS: INSULIN ASPART [NOVOLOG] 3 ML PEN SC SCH ×6 (00:47→21:00)
[2017-09-08] MEDS: ACCU-CHEK XX SCH (02:00)
[2017-09-08] MEDS: LANSOPRAZOLE 30 MG CAP GTB SCH (06:51)
[2017-09-08] MEDS: INSULIN GLARGINE [LANtus] 3 ML PEN SC SCH (09:00)
[2017-09-08] MEDS: METOPROLOL 50 MG TAB GTB SCH ×2 (09:24→21:57)
[2017-09-08] MEDS: LISINOPRIL 20 MG TAB PO SCH ×2 (09:24→21:58)
[2017-09-08] MEDS: SODIUM HYPOCHLORITE 1/40% 1L IRRIG IRR SCH ×2 (09:24→21:58)
--- NOTE | 2017-09-08 12:49 | CONS ---
Date/Time of Note Date/Time of Note DATE: 09/08/17 TIME: 12:46 Assessment/Plan Assessment/Plan Additional Assessment/Plan Ventilator setting; AC of 24, tidal volume 450, PEEP of 5, 30% FiO2. Assessment and recommendations; 1. Patient admitted with severe sepsis with bilateral pneumonia with marked interval improvement. Off antibiotics now. 2. Renal failure, requiring hemodialysis. 3. Chronic respiratory failure. 4. Severe anoxic brain injury. 5. History of hypertension. Next Continue current treatment. Consider discharge to rehab facility. Overall prognosis remains poor. Consultation Date/Type/Reason Admit Date/Time Aug 20, 2017 at 17:03 Initial Consult Date 08/20/17 Type of Consultation: Pulmonary Referring Provider: HUSSEIN ROSE 24 HR Interval Summary Free Text/Dictation Patient's condition is stable. Remains unresponsive due to anoxic brain injury. Also remains chronically ventilator dependent. Patient has remained hemodynamically stable. General exam; elderly male, on ventilator via tracheostomy, unresponsive, currently in no distress. Exam/Review of Systems Vital Signs Vitals Vital Signs Date Time Temp Pulse Resp B/P Pulse Ox O2 Delivery O2 Flow Rate FiO2 09/08/17 12:36 75 09/08/17 12:05 98.4 21 153/76 99 09/08/17 08:45 30 09/05/17 12:23 Mechanical Ventilator Intake and Output 09/07/17 09/07/17 09/08/17 15:00 23:00 07:00 Intake Total 1190 ml 300 ml Output Total 2800 ml Balance -1610 ml 300 ml Exam HEENT exam; supple neck, no JVD. No lymphadenopathy. Midline trachea. No thyromegaly. Tracheostomy in place. Next Chest exam; diminished but clear breath sounds. S1-S2 audible, no murmurs. Regular rhythm. Abdomen exam; soft, no organomegaly. G-tube in place. Bowel sounds are audible. Extremity exam; no peripheral edema. CLINICAL ACCOUNT LIAISON exam; patient remains unresponsive. Results Result Diagram: 09/08/17 0707 09/08/17 0707 Results 24 hrs Laboratory Tests Test 09/07/17 17:45 09/07/17 18:05 09/07/17 18:20 09/07/17 21:40 Bedside Glucose 54 L 109 85 42 *L Test 09/07/17 21:41 09/07/17 22:04 09/07/17 22:15 09/07/17 22:34 Bedside Glucose 43 *L 110 102 Glucose Level 127 Test 09/08/17 00:46 09/08/17 05:00 09/08/17 07:07 09/08/17 07:58 Bedside Glucose 112 94 124 White Blood Count 4.1 L Red Blood Count 2.92 L Hemoglobin 8.3 L Hematocrit 26.4 L Mean Corpuscular Volume 90.4 Mean Corpuscular Hemoglobin 28.4 L Mean Corpuscular Hemoglobin Concent 31.4 L Red Cell Distribution Width 14.6 H Platelet Count 178 Mean Platelet Volume 11.1 H Neutrophils % 54.6 Lymphocytes % 30.1 Monocytes % 8.3 Eosinophils % 6.1 Basophils % 0.7 Nucleated Red Blood Cells % 0.0 Neutrophils # 2.2 Lymphocytes # 1.2 Monocytes # 0.3 Eosinophils # 0.3 Basophils # 0.0 Nucleated Red Blood Cells # 0.0 Sodium Level 135 Potassium Level 4.3 Chloride Level 101 Carbon Dioxide Level 30 Anion Gap 8 Blood Urea Nitrogen 49 #H Creatinine 3.64 H Glucose Level 129 Calcium Level 7.7 L Test 09/08/17 09:15 Bedside Glucose 123 Medications Medications Current Medications Diagnostic Test (Pha) (Accu-Chek) 1 ea 02 XX Last administered on 08/31/17 01 :33; Admin Dose 1 EA; Start 08/23/17 at 02:00 Miscellaneous Information 1 ea NOTE XX ; Start 08/22/17 at 13:30 Glucose (Glutose) 15 gm Q15M PRN PO DECREASED GLUCOSE; Start 08/22/17 at 13:30 Glucose (Glutose) 22.5 gm Q15M PRN PO DECREASED GLUCOSE; Start 08/22/17 at 13: 30 Dextrose (D50w Syringe) 25 ml Q15M PRN IV DECREASED GLUCOSE Last administered on 09/07/17 17:50; Admin Dose 25 ML; Start 08/22/17 at 13:30 Dextrose (D50w Syringe) 50 ml Q15M PRN IV DECREASED GLUCOSE Last administered on 09/07/17 21:54; Admin Dose 50 ML; Start 08/22/17 at 13:30 Glucagon (Glucagen) 1 mg Q15M PRN IM DECREASED GLUCOSE; Start 08/22/17 at 13:30 Glucose (Glutose) 15 gm Q15M PRN BUCCAL DECREASED GLUCOSE; Start 08/22/17 at 13 :30 Sodium Hypochlorite (Dakin'S (Dilute 1/40%)) 1 applic BID IRR Last administered on 09/08/17 09:24; Admin Dose 1 APPLIC; Start 08/23/17 at 09:00 Metoprolol Tartrate (Lopressor) 50 mg BID GTB Last administered on 09/08/17 09:24; Admin Dose 50 MG; Start 08/24/17 at 21:00 Acetaminophen (Tylenol Tab) 500 mg Q4H PRN PO PAIN AND OR ELEVATED TEMP Last administered on 08/27/17 01:27; Admin Dose 500 MG; Start 08/25/17 at 12:00 Morphine Sulfate (morphine) 2 mg Q4H PRN IV PAIN LEVEL 4-6 Last administered on 09/03/17 20:38; Admin Dose 2 MG; Start 08/25/17 at 12:00 Lansoprazole (Prevacid) 30 mg DAILY@06 GTB Last administered on 09/08/17 06: 51; Admin Dose 30 MG; Start 08/29/17 at 06:00 Insulin Aspart (Novolog Insulin Pen) (Adult SC Insulin - Mild Algorithm)... Q4 SC Last administered on 09/05/17 17:51; Admin Dose 1 UNIT; Start 08/31/17 at 16:00 Lisinopril (Zestril) 20 mg BID PO Last administered on 09/08/17 09:24; Admin Dose 20 MG; Start 09/02/17 at 21:00 Clonidine (Catapres) 0.1 mg Q6H PRN GTB ELEVATED SYSTOLIC BP Last administered on 09/06/17 05:33; Admin Dose 0.1 MG; Start 09/02/17 at 21:30 Epoetin Bo (Epogen (Esrd)) 2,000 units MoWeFr@17 SC Last administered on 17:53; Admin Dose 2,000 UNITS; Start 09/05/17 at 17:00 Epoetin Bo 3000 units 3,000 units MoWeFr@17 SC Last administered on 17:51; Admin Dose 3,000 UNITS; Start 09/05/17 at 17:00 Dextrose/Sodium Chloride (D5-1/2ns) 1,000 ml @ 30 mls/hr Q24H IV Last administered on 09/07/17t 23:03; Admin Dose 30 MLS/HR; Start 09/07/17 at 22:30 Insulin Glargine (Lantus) 10 unit DAILY SC ; Start 09/08/17 at 09:00 ODETTE MCKEON Sep 08, 2017 12:49
--- NOTE | 2017-09-08 16:13 | PN ---
Date/Time of Note Date/Time of Note DATE: 09/08/17 TIME: 16:12 Assessment/Plan VTE Prophylaxis VTE Prophylaxis Intervention: other Lines/Catheters IV [facility]ter Type (from [facility]): PICC Line Urinary Cath still in place: No Assessment/Plan Assessment/Plan -Acute on chronic CKD. Continue hemodialysis. Dr. Nieto is following in nephrology consultation. -Ventilator dependent respiratory failure with tracheostomy. -Pulmonary edema versus multifocal pneumonia, status post treatment with antibiotics. Dr Hill is following in infection disease consultation -Positive troponin in the setting of renal disease, Dr. Zuniga is following in cardiology consultation -Acute metabolic encephalopathy -Anemia, s/p blood transfusion, continue Epogen, continue to monitor hemoglobin and hematocrit -DM, continue Lantus, NovoLog per sliding scale. -Dysphagia with PEG -Sacral wound Further recommendations based on clinical course. Plan of care discussed with Dr. Chávez. Subjective 24 Hr Interval Summary Free Text/Dictation alert, awake, eye tracking noted, does not follow commands, dw staff Subjective hx not possible: pt non-verbal Constitutional: requiring IVF, requiring O2 Exam/Review of Systems Vital Signs Vitals Vital Signs Date Time Temp Pulse Resp B/P Pulse Ox O2 Delivery O2 Flow Rate FiO2 09/08/17 15:56 98.1 86 18 165/77 97 09/08/17 14:56 30 09/05/17 12:23 Mechanical Ventilator Intake and Output 09/07/17 09/07/17 09/08/17 15:00 23:00 07:00 Intake Total 1190 ml 300 ml Output Total 2800 ml Balance -1610 ml 300 ml Exam Constitutional: alert, non-verbal Cardiovascular: other (s1s2) Gastrointestinal: non-tender, soft Musculoskeletal: muscle weakness Extremities: edema Neurological: confused Results Result Diagram: 09/08/17 0707 09/08/17 0707 Results 24 hrs Laboratory Tests Test 09/07/17 17:45 09/07/17 18:05 09/07/17 18:20 09/07/17 21:40 Bedside Glucose 54 L 109 85 42 *L Test 09/07/17 21:41 09/07/17 22:04 09/07/17 22:15 09/07/17 22:34 Bedside Glucose 43 *L 110 102 Glucose Level 127 Test 09/08/17 00:46 09/08/17 05:00 09/08/17 07:07 09/08/17 07:58 Bedside Glucose 112 94 124 White Blood Count 4.1 L Red Blood Count 2.92 L Hemoglobin 8.3 L Hematocrit 26.4 L Mean Corpuscular Volume 90.4 Mean Corpuscular Hemoglobin 28.4 L Mean Corpuscular Hemoglobin Concent 31.4 L Red Cell Distribution Width 14.6 H Platelet Count 178 Mean Platelet Volume 11.1 H Neutrophils % 54.6 Lymphocytes % 30.1 Monocytes % 8.3 Eosinophils % 6.1 Basophils % 0.7 Nucleated Red Blood Cells % 0.0 Neutrophils # 2.2 Lymphocytes # 1.2 Monocytes # 0.3 Eosinophils # 0.3 Basophils # 0.0 Nucleated Red Blood Cells # 0.0 Sodium Level 135 Potassium Level 4.3 Chloride Level 101 Carbon Dioxide Level 30 Anion Gap 8 Blood Urea Nitrogen 49 #H Creatinine 3.64 H Glucose Level 129 Calcium Level 7.7 L Test 09/08/17 09:15 09/08/17 13:05 09/08/17 16:10 Bedside Glucose 123 117 122 Medications Medications Current Medications Diagnostic Test (Pha) (Accu-Chek) 1 ea 02 XX Last administered on 08/31/17 01 :33; Admin Dose 1 EA; Start 08/23/17 at 02:00 Miscellaneous Information 1 ea NOTE XX ; Start 08/22/17 at 13:30 Glucose (Glutose) 15 gm Q15M PRN PO DECREASED GLUCOSE; Start 08/22/17 at 13:30 Glucose (Glutose) 22.5 gm Q15M PRN PO DECREASED GLUCOSE; Start 08/22/17 at 13: 30 Dextrose (D50w Syringe) 25 ml Q15M PRN IV DECREASED GLUCOSE Last administered on 09/07/17 17:50; Admin Dose 25 ML; Start 08/22/17 at 13:30 Dextrose (D50w Syringe) 50 ml Q15M PRN IV DECREASED GLUCOSE Last administered on 09/07/17 21:54; Admin Dose 50 ML; Start 08/22/17 at 13:30 Glucagon (Glucagen) 1 mg Q15M PRN IM DECREASED GLUCOSE; Start 08/22/17 at 13:30 Glucose (Glutose) 15 gm Q15M PRN BUCCAL DECREASED GLUCOSE; Start 08/22/17 at 13 :30 Sodium Hypochlorite (Dakin'S (Dilute 1/40%)) 1 applic BID IRR Last administered on 09/08/17 09:24; Admin Dose 1 APPLIC; Start 08/23/17 at 09:00 Metoprolol Tartrate (Lopressor) 50 mg BID GTB Last administered on 09/08/17 09:24; Admin Dose 50 MG; Start 08/24/17 at 21:00 Acetaminophen (Tylenol Tab) 500 mg Q4H PRN PO PAIN AND OR ELEVATED TEMP Last administered on 08/27/17 01:27; Admin Dose 500 MG; Start 08/25/17 at 12:00 Morphine Sulfate (morphine) 2 mg Q4H PRN IV PAIN LEVEL 4-6 Last administered on 09/03/17 20:38; Admin Dose 2 MG; Start 08/25/17 at 12:00 Lansoprazole (Prevacid) 30 mg DAILY@06 GTB Last administered on 09/08/17 06: 51; Admin Dose 30 MG; Start 08/29/17 at 06:00 Insulin Aspart (Novolog Insulin Pen) (Adult SC Insulin - Mild Algorithm)... Q4 SC Last administered on 09/05/17 17:51; Admin Dose 1 UNIT; Start 08/31/17 at 16:00 Lisinopril (Zestril) 20 mg BID PO Last administered on 09/08/17 09:24; Admin Dose 20 MG; Start 09/02/17 at 21:00 Clonidine (Catapres) 0.1 mg Q6H PRN GTB ELEVATED SYSTOLIC BP Last administered on 09/06/17 05:33; Admin Dose 0.1 MG; Start 09/02/17 at 21:30 Epoetin Bo (Epogen (Esrd)) 2,000 units MoWeFr@17 SC Last administered on 17:53; Admin Dose 2,000 UNITS; Start 09/05/17 at 17:00 Epoetin Bo 3000 units 3,000 units MoWeFr@17 SC Last administered on 17:51; Admin Dose 3,000 UNITS; Start 09/05/17 at 17:00 Dextrose/Sodium Chloride (D5-1/2ns) 1,000 ml @ 30 mls/hr Q24H IV Last administered on 09/07/17 23:03; Admin Dose 30 MLS/HR; Start 09/07/17 at 22:30 Insulin Glargine (Lantus) 10 unit DAILY SC ; Start 09/08/17 at 09:00 LEILA GARCIA Sep 08, 2017 16:13
--- NOTE | 2017-09-08 18:09 | CONS ---
Date/Time of Note Date/Time of Note DATE: 09/08/17 TIME: 18:09 Assessment/Plan Assessment/Plan Additional Assessment/Plan 1. Sepsis due to PNA 2. Acute on chronic renal failure - with severe metabolic acidosis and acute uremic encephalopathy- pt is anuric, started on HD during this admission 3. AMS due to acute uremic encephalopathy + acute metabolic encephalopathy 3. H/o recent admission to [facility] for renal failure 4. H/o chronic resp failure s/p tracheostomy 5. HTN 6. H/o CVA with residual weakness 7.. IDDM 8. Anemia,severe, anemia of chronic disease, Plan: started on HD during this admission,HDtomorrow after permacath placement Hepatitis panel, HIV negative pt will be [facility] HD patient., plan for permacath placement by tomorrow , NPO after midnight and IVF D51/2NS at 30 cc/hr post midnight Outpatient HD placement is requested at [facility] IV abx as per ID will follow up Consultation Date/Type/Reason Admit Date/Time Aug 20, 2017 at 17:03 Initial Consult Date 08/20/17 Type of Consultation: NEPHROLOGY Referring Provider: HUSSEIN ROSE Exam/Review of Systems Vital Signs Vitals Vital Signs Date Time Temp Pulse Resp B/P Pulse Ox O2 Delivery O2 Flow Rate FiO2 09/08/17 16:51 77 24 99 30 09/08/17 15:56 98.1 165/77 09/05/17 12:23 Mechanical Ventilator Intake and Output 09/07/17 09/07/17 09/08/17 15:00 23:00 07:00 Intake Total 1190 ml 300 ml Output Total 2800 ml Balance -1610 ml 300 ml Results Result Diagram: 09/08/17 0707 09/08/17 0707 Results 24 hrs Laboratory Tests Test 09/07/17 18:20 09/07/17 21:40 09/07/17 21:41 09/07/17 22:04 Bedside Glucose 85 42 *L 43 *L Glucose Level 127 Test 09/07/17 22:15 09/07/17 22:34 09/08/17 00:46 09/08/17 05:00 Bedside Glucose 110 102 112 94 Test 09/08/17 07:07 09/08/17 07:58 09/08/17 09:15 09/08/17 13:05 White Blood Count 4.1 L Red Blood Count 2.92 L Hemoglobin 8.3 L Hematocrit 26.4 L Mean Corpuscular Volume 90.4 Mean Corpuscular Hemoglobin 28.4 L Mean Corpuscular Hemoglobin Concent 31.4 L Red Cell Distribution Width 14.6 H Platelet Count 178 Mean Platelet Volume 11.1 H Neutrophils % 54.6 Lymphocytes % 30.1 Monocytes % 8.3 Eosinophils % 6.1 Basophils % 0.7 Nucleated Red Blood Cells % 0.0 Neutrophils # 2.2 Lymphocytes # 1.2 Monocytes # 0.3 Eosinophils # 0.3 Basophils # 0.0 Nucleated Red Blood Cells # 0.0 Sodium Level 135 Potassium Level 4.3 Chloride Level 101 Carbon Dioxide Level 30 Anion Gap 8 Blood Urea Nitrogen 49 #H Creatinine 3.64 H Glucose Level 129 Calcium Level 7.7 L Bedside Glucose 124 123 117 Test 09/08/17 16:10 Bedside Glucose 122 Medications Medications Current Medications Diagnostic Test (Pha) (Accu-Chek) 1 ea 02 XX Last administered on 08/31/17 01 :33; Admin Dose 1 EA; Start 08/23/17 at 02:00 Miscellaneous Information 1 ea NOTE XX ; Start 08/22/17 at 13:30 Glucose (Glutose) 15 gm Q15M PRN PO DECREASED GLUCOSE; Start 08/22/17 at 13:30 Glucose (Glutose) 22.5 gm Q15M PRN PO DECREASED GLUCOSE; Start 08/22/17 at 13: 30 Dextrose (D50w Syringe) 25 ml Q15M PRN IV DECREASED GLUCOSE Last administered on 09/07/17 17:50; Admin Dose 25 ML; Start 08/22/17 at 13:30 Dextrose (D50w Syringe) 50 ml Q15M PRN IV DECREASED GLUCOSE Last administered on 09/07/17 21:54; Admin Dose 50 ML; Start 08/22/17 at 13:30 Glucagon (Glucagen) 1 mg Q15M PRN IM DECREASED GLUCOSE; Start 08/22/17 at 13:30 Glucose (Glutose) 15 gm Q15M PRN BUCCAL DECREASED GLUCOSE; Start 08/22/17 at 13 :30 Sodium Hypochlorite (Dakin'S (Dilute 1/40%)) 1 applic BID IRR Last administered on 09/08/17 09:24; Admin Dose 1 APPLIC; Start 08/23/17 at 09:00 Metoprolol Tartrate (Lopressor) 50 mg BID GTB Last administered on 09/08/17 09:24; Admin Dose 50 MG; Start 08/24/17 at 21:00 Acetaminophen (Tylenol Tab) 500 mg Q4H PRN PO PAIN AND OR ELEVATED TEMP Last administered on 08/27/17 01:27; Admin Dose 500 MG; Start 08/25/17 at 12:00 Morphine Sulfate (morphine) 2 mg Q4H PRN IV PAIN LEVEL 4-6 Last administered on 09/03/17 20:38; Admin Dose 2 MG; Start 08/25/17 at 12:00 Lansoprazole (Prevacid) 30 mg DAILY@06 GTB Last administered on 09/08/17 06: 51; Admin Dose 30 MG; Start 08/29/17 at 06:00 Insulin Aspart (Novolog Insulin Pen) (Adult SC Insulin - Mild Algorithm)... Q4 SC Last administered on 09/05/17 17:51; Admin Dose 1 UNIT; Start 08/31/17 at 16:00 Lisinopril (Zestril) 20 mg BID PO Last administered on 09/08/17 09:24; Admin Dose 20 MG; Start 09/02/17 at 21:00 Clonidine (Catapres) 0.1 mg Q6H PRN GTB ELEVATED SYSTOLIC BP Last administered on 09/06/17 05:33; Admin Dose 0.1 MG; Start 09/02/17 at 21:30 Epoetin Bo (Epogen (Esrd)) 2,000 units MoWeFr@17 SC Last administered on 17:53; Admin Dose 2,000 UNITS; Start 09/05/17 at 17:00 Epoetin Bo 3000 units 3,000 units MoWeFr@17 SC Last administered on 17:51; Admin Dose 3,000 UNITS; Start 09/05/17 at 17:00 Dextrose/Sodium Chloride (D5-1/2ns) 1,000 ml @ 30 mls/hr Q24H IV Last administered on 09/07/17 23:03; Admin Dose 30 MLS/HR; Start 09/07/17 at 22:30 Insulin Glargine (Lantus) 10 unit DAILY SC ; Start 09/08/17 at 09:00 LUCILLE CABALLERO MD Sep 08, 2017 18:09
[2017-09-08] MEDS: DEXTROSE 5%-0.45% NACL 1,000 ML IV SCH (21:58)
--- NOTE | 2017-09-08 22:08 | CONS ---
Date/Time of Note Date/Time of Note DATE: 09/08/17 TIME: 22:08 Consult Date/Type/Reason Admit Date/Time Aug 20, 2017 at 17:03 Initial Consult Date 08/20/17 Type of Consultation: ID Ordering Provider: HUSSEIN ROSE Objective Vital Signs Date Time Temp Pulse Resp B/P Pulse Ox O2 Delivery O2 Flow Rate FiO2 09/08/17 20:00 98.6 80 18 158/71 98 09/08/17 16:51 30 09/05/17 12:23 Mechanical Ventilator Intake and Output 09/07/17 09/07/17 09/08/17 15:00 23:00 07:00 Intake Total 1190 ml 300 ml Output Total 2800 ml Balance -1610 ml 300 ml Results/Medications Result Diagram: 09/08/17 0707 09/08/17 0707 Results 24 hrs Laboratory Tests Test 09/07/17 22:15 09/07/17 22:34 09/08/17 00:46 09/08/17 05:00 Bedside Glucose 110 102 112 94 Test 09/08/17 07:07 09/08/17 07:58 09/08/17 09:15 09/08/17 13:05 White Blood Count 4.1 L Red Blood Count 2.92 L Hemoglobin 8.3 L Hematocrit 26.4 L Mean Corpuscular Volume 90.4 Mean Corpuscular Hemoglobin 28.4 L Mean Corpuscular Hemoglobin Concent 31.4 L Red Cell Distribution Width 14.6 H Platelet Count 178 Mean Platelet Volume 11.1 H Neutrophils % 54.6 Lymphocytes % 30.1 Monocytes % 8.3 Eosinophils % 6.1 Basophils % 0.7 Nucleated Red Blood Cells % 0.0 Neutrophils # 2.2 Lymphocytes # 1.2 Monocytes # 0.3 Eosinophils # 0.3 Basophils # 0.0 Nucleated Red Blood Cells # 0.0 Sodium Level 135 Potassium Level 4.3 Chloride Level 101 Carbon Dioxide Level 30 Anion Gap 8 Blood Urea Nitrogen 49 #H Creatinine 3.64 H Glucose Level 129 Calcium Level 7.7 L Bedside Glucose 124 123 117 Test 09/08/17 16:10 09/08/17 21:43 Bedside Glucose 122 125 Medications Current Medications Diagnostic Test (Pha) (Accu-Chek) 1 ea 02 XX Last administered on 08/31/17t 01 :33; Admin Dose 1 EA; Start 08/23/17 at 02:00 Miscellaneous Information 1 ea NOTE XX ; Start 08/22/17 at 13:30 Glucose (Glutose) 15 gm Q15M PRN PO DECREASED GLUCOSE; Start 08/22/17 at 13:30 Glucose (Glutose) 22.5 gm Q15M PRN PO DECREASED GLUCOSE; Start 08/22/17 at 13: 30 Dextrose (D50w Syringe) 25 ml Q15M PRN IV DECREASED GLUCOSE Last administered on 09/07/17 17:50; Admin Dose 25 ML; Start 08/22/17 at 13:30 Dextrose (D50w Syringe) 50 ml Q15M PRN IV DECREASED GLUCOSE Last administered on 09/07/17 21:54; Admin Dose 50 ML; Start 08/22/17 at 13:30 Glucagon (Glucagen) 1 mg Q15M PRN IM DECREASED GLUCOSE; Start 08/22/17 at 13:30 Glucose (Glutose) 15 gm Q15M PRN BUCCAL DECREASED GLUCOSE; Start 08/22/17 at 13 :30 Sodium Hypochlorite (Dakin'S (Dilute 1/40%)) 1 applic BID IRR Last administered on 09/08/17 21:58; Admin Dose 1 APPLIC; Start 08/23/17 at 09:00 Metoprolol Tartrate (Lopressor) 50 mg BID GTB Last administered on 09/08/17 21:57; Admin Dose 50 MG; Start 08/24/17 at 21:00 Acetaminophen (Tylenol Tab) 500 mg Q4H PRN PO PAIN AND OR ELEVATED TEMP Last administered on 08/27/17 01:27; Admin Dose 500 MG; Start 08/25/17 at 12:00 Morphine Sulfate (morphine) 2 mg Q4H PRN IV PAIN LEVEL 4-6 Last administered on 09/03/17 20:38; Admin Dose 2 MG; Start 08/25/17 at 12:00 Lansoprazole (Prevacid) 30 mg DAILY@06 GTB Last administered on 09/08/17 06: 51; Admin Dose 30 MG; Start 08/29/17 at 06:00 Insulin Aspart (Novolog Insulin Pen) (Adult SC Insulin - Mild Algorithm)... Q4 SC Last administered on 09/05/17 17:51; Admin Dose 1 UNIT; Start 08/31/17 at 16:00 Lisinopril (Zestril) 20 mg BID PO Last administered on 09/08/17 21:58; Admin Dose 20 MG; Start 09/02/17 at 21:00 Clonidine (Catapres) 0.1 mg Q6H PRN GTB ELEVATED SYSTOLIC BP Last administered on 09/06/17 05:33; Admin Dose 0.1 MG; Start 09/02/17 at 21:30 Epoetin Bo (Epogen (Esrd)) 2,000 units MoWeFr@17 SC Last administered on 17:53; Admin Dose 2,000 UNITS; Start 09/05/17 at 17:00 Epoetin Bo 3000 units 3,000 units MoWeFr@17 SC Last administered on 17:51; Admin Dose 3,000 UNITS; Start 09/05/17 at 17:00 Dextrose/Sodium Chloride (D5-1/2ns) 1,000 ml @ 30 mls/hr Q24H IV Last administered on 09/07/17 23:03; Admin Dose 30 MLS/HR; Start 09/07/17 at 22:30 Insulin Glargine (Lantus) 10 unit DAILY SC ; Start 09/08/17 at 09:00 Assessment/Plan Chief Complaint/Hosp Course SUBJECTIVE: No acute changes. The patient is lying comfortably in bed. No fevers. ANTIMICROBIALS: none INDWELLINGS: Trach, PEG, Chun, R fem Calos catheter and left upper extremity PICC line. PHYSICAL EXAMINATION: GENERAL: This is a chronically ill-appearing, elderly man in no distress. HEENT: Head atraumatic, normocephalic. Sclerae anicteric. Buccal mucosa dry. NECK: Obese. CHEST: Rise symmetrical. Breath sounds clear, diminished to bases. HEART: S1, S2. ABDOMEN: Soft. Bowel sounds present. EXTREMITIES: With trace edema. ASSESSMENT: 1. Status post septic shock. 2. Acute on chronic respiratory failure . 3. Healthcare-associated pneumonia==> completed abx. 4. Sacral decubitus. 5. 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 6. Diabetes. 7. Chronic encephalopathy. PLAN: Remains stable, off antibiotics, continue local wound care, vent per pulmonary, pending perm-cath [facility] staff Problems: BISI MARTIN NP Sep 08, 2017 22:08
[2017-09-09] VITALS (23 sets, daily range): BP systolic 137–167; BP diastolic 65–79; PULSE 72–96; RESP 17–24
[2017-09-09] MEDS: INSULIN ASPART [NOVOLOG] 3 ML PEN SC SCH ×6 (00:59→21:00)
[2017-09-09] MEDS: ACCU-CHEK XX SCH (01:03)
[2017-09-09] MEDS: LANSOPRAZOLE 30 MG CAP GTB SCH (05:11)
[2017-09-09] MEDS ORDERED: HYDROmorphONE (0.2 MG/ML) 10ML SYG IV PRN ×3 (07:30)
[2017-09-09] MEDS ORDERED: ATROPINE 1 MG/10 ML SYRINGE IV PRN (07:30)
[2017-09-09] MEDS ORDERED: DIPHENHYDRAMINE 50 MG INJ IV PRN (07:30)
[2017-09-09] MEDS ORDERED: MIDAZOLAM 1 MG/ML 2 ML INJ IV PRN (07:30)
[2017-09-09] MEDS ORDERED: EPHEDrine SULFATE 50 MG/5 ML SYG IV PRN (07:30)
[2017-09-09] MEDS ORDERED: morphine (1 MG/ML) 10ML SYRINGE IV PRN ×3 (07:30)
[2017-09-09] MEDS ORDERED: MEPERIDINE 25 MG INJ IV PRN (07:30)
[2017-09-09] MEDS ORDERED: ONDANSETRON 4 MG INJ IV PRN (07:30)
[2017-09-09] MEDS ORDERED: FENTAnyl 50 MCG/ML VIAL IV PRN ×2 (07:30)
[2017-09-09] MEDS ORDERED: LABETALOL HCL 20MG INJ IV PRN (07:30)
[2017-09-09] MEDS ORDERED: hydrALAzine 20 MG INJ IV PRN (07:30)
[2017-09-09] MEDS ORDERED: OXYCODONE/ACETAMINOPHEN (5/325) TAB PO PRN ×2 (07:30)
[2017-09-09] MEDS: LISINOPRIL 20 MG TAB PO SCH ×2 (08:04→21:50)
[2017-09-09] MEDS: SODIUM HYPOCHLORITE 1/40% 1L IRRIG IRR SCH ×2 (08:04→21:50)
[2017-09-09] MEDS: METOPROLOL 50 MG TAB GTB SCH ×2 (08:04→21:50)
[2017-09-09] MEDS: INSULIN GLARGINE [LANtus] 3 ML PEN SC SCH (08:05)
[2017-09-09] MEDS: DEXTROSE 5%-0.45% NACL 1,000 ML IV SCH (11:38)
--- NOTE | 2017-09-09 11:50 | CONS ---
Date/Time of Note Date/Time of Note DATE: 09/09/17 TIME: 11:48 Assessment/Plan Assessment/Plan Additional Assessment/Plan Ventilator setting; AC of 24, tidal volume 500, PEEP of 5, 30% FiO2. Assessment and recommendations; 1. Patient admitted with severe bilateral pneumonia with significant interval radiological improvement. 2. Chronic respiratory failure. 3. Chronic renal insufficiency. Patient now requiring hemodialysis. 4. Severe anoxic brain injury. Continue current supportive care. Prognosis remains poor. Consultation Date/Type/Reason Admit Date/Time Aug 20, 2017 at 17:03 Initial Consult Date 08/20/17 Type of Consultation: Pulmonary Referring Provider: HUSSEIN ROSE 24 HR Interval Summary Free Text/Dictation Patient's condition remains stable. Has remained hemodynamically stable. Because of severe anoxic brain injury patient remains completely unresponsive and remains chronically ventilator dependent. General exam; elderly male, on ventilator via tracheostomy, unresponsive, currently in no distress. Exam/Review of Systems Vital Signs Vitals Vital Signs Date Time Temp Pulse Resp B/P Pulse Ox O2 Delivery O2 Flow Rate FiO2 09/09/17 11:31 97.9 71 20 146/74 100 09/09/17 11:15 30 09/05/17 12:23 Mechanical Ventilator Intake and Output 09/08/17 09/08/17 09/09/17 15:00 23:00 07:00 Intake Total 400 ml 630 ml Balance 400 ml 630 ml Exam HEENT exam; supple neck, no JVD. No lymphadenopathy. Midline trachea. No thyromegaly. Tracheostomy in place. Chest exam; diminished breath sounds bilaterally. With scattered crackles. S1- S2 audible, no murmurs. Regular rhythm. Abdomen exam; soft, G-tube in place. Bowel sounds audible. Extremity exam; no peripheral edema. CHANGE MANAGEMENT COORDINATOR exam; patient remains unresponsive. Results Result Diagram: 09/09/17 0527 09/09/17 0527 Results 24 hrs Laboratory Tests Test 09/08/17 13:05 09/08/17 16:10 09/08/17 21:43 09/09/17 00:58 Bedside Glucose 117 122 125 117 Test 09/09/17 05:08 09/09/17 05:27 09/09/17 08:00 Bedside Glucose 104 117 White Blood Count 5.1 # Red Blood Count 3.36 L Hemoglobin 9.6 L Hematocrit 30.3 L Mean Corpuscular Volume 90.2 Mean Corpuscular Hemoglobin 28.6 L Mean Corpuscular Hemoglobin Concent 31.7 L Red Cell Distribution Width 14.3 Platelet Count 214 # Mean Platelet Volume 10.9 H Neutrophils % 48.5 Lymphocytes % 35.6 Monocytes % 8.0 Eosinophils % 6.3 Basophils % 1.2 Nucleated Red Blood Cells % 0.0 Neutrophils # 2.5 Lymphocytes # 1.8 Monocytes # 0.4 Eosinophils # 0.3 Basophils # 0.1 Nucleated Red Blood Cells # 0.0 Prothrombin Time 15.5 H Prothrombin Time Ratio 1.2 INR International Normalized Ratio 1.22 Activated Partial Thromboplast Time 30.3 Sodium Level 137 Potassium Level 4.6 Chloride Level 101 Carbon Dioxide Level 30 Anion Gap 11 Blood Urea Nitrogen 55 H Creatinine 4.19 H Glucose Level 95 Calcium Level 8.1 L Medications Medications Current Medications Diagnostic Test (Pha) (Accu-Chek) 1 ea 02 XX Last administered on 08/31/17 01 :33; Admin Dose 1 EA; Start 08/23/17 at 02:00 Miscellaneous Information 1 ea NOTE XX ; Start 08/22/17 at 13:30 Glucose (Glutose) 15 gm Q15M PRN PO DECREASED GLUCOSE; Start 08/22/17 at 13:30 Glucose (Glutose) 22.5 gm Q15M PRN PO DECREASED GLUCOSE; Start 08/22/17 at 13: 30 Dextrose (D50w Syringe) 25 ml Q15M PRN IV DECREASED GLUCOSE Last administered on 09/07/17 17:50; Admin Dose 25 ML; Start 08/22/17 at 13:30 Dextrose (D50w Syringe) 50 ml Q15M PRN IV DECREASED GLUCOSE Last administered on 09/07/17 21:54; Admin Dose 50 ML; Start 08/22/17 at 13:30 Glucagon (Glucagen) 1 mg Q15M PRN IM DECREASED GLUCOSE; Start 08/22/17 at 13:30 Glucose (Glutose) 15 gm Q15M PRN BUCCAL DECREASED GLUCOSE; Start 08/22/17 at 13 :30 Sodium Hypochlorite (Dakin'S (Dilute 1/40%)) 1 applic BID IRR Last administered on 09/09/17 08:04; Admin Dose 1 APPLIC; Start 08/23/17 at 09:00 Metoprolol Tartrate (Lopressor) 50 mg BID GTB Last administered on 09/09/17 08:04; Admin Dose 50 MG; Start 08/24/17 at 21:00 Acetaminophen (Tylenol Tab) 500 mg Q4H PRN PO PAIN AND OR ELEVATED TEMP Last administered on 08/27/17 01:27; Admin Dose 500 MG; Start 08/25/17 at 12:00 Morphine Sulfate (morphine) 2 mg Q4H PRN IV PAIN LEVEL 4-6 Last administered on 09/03/17 20:38; Admin Dose 2 MG; Start 08/25/17 at 12:00 Lansoprazole (Prevacid) 30 mg DAILY@06 GTB Last administered on 09/09/17 05: 11; Admin Dose 30 MG; Start 08/29/17 at 06:00 Insulin Aspart (Novolog Insulin Pen) (Adult SC Insulin - Mild Algorithm)... Q4 SC Last administered on 09/05/17 17:51; Admin Dose 1 UNIT; Start 08/31/17 at 16:00 Lisinopril (Zestril) 20 mg BID PO Last administered on 09/09/17 08:04; Admin Dose 20 MG; Start 09/02/17 at 21:00 Clonidine (Catapres) 0.1 mg Q6H PRN GTB ELEVATED SYSTOLIC BP Last administered on 09/06/17 05:33; Admin Dose 0.1 MG; Start 09/02/17 at 21:30 Epoetin Bo (Epogen (Esrd)) 2,000 units MoWeFr@17 SC Last administered on 17:53; Admin Dose 2,000 UNITS; Start 09/05/17 at 17:00 Epoetin Bo 3000 units 3,000 units MoWeFr@17 SC Last administered on 17:51; Admin Dose 3,000 UNITS; Start 09/05/17 at 17:00 Dextrose/Sodium Chloride (D5-1/2ns) 1,000 ml @ 30 mls/hr Q24H IV Last administered on 09/09/17 11:38; Admin Dose 30 MLS/HR; Start 09/07/17 at 22:30 Insulin Glargine (Lantus) 10 unit DAILY SC ; Start 09/08/17 at 09:00 ODETTE MCKEON Sep 09, 2017 11:50
--- NOTE | 2017-09-09 12:50 | CONS ---
Date/Time of Note Date/Time of Note DATE: 09/09/17 TIME: 12:49 Consult Date/Type/Reason Admit Date/Time Aug 20, 2017 at 17:03 Initial Consult Date 08/20/17 Type of Consultation: ID Ordering Provider: HUSSEIN ROSE Objective Vital Signs Date Time Temp Pulse Resp B/P Pulse Ox O2 Delivery O2 Flow Rate FiO2 09/09/17 12:10 72 09/09/17 11:31 97.9 20 146/74 100 09/09/17 11:15 30 09/05/17 12:23 Mechanical Ventilator Intake and Output 09/08/17 09/08/17 09/09/17 15:00 23:00 07:00 Intake Total 400 ml 630 ml Balance 400 ml 630 ml Results/Medications Result Diagram: 09/09/1727 09/09/1727 Results 24 hrs Laboratory Tests Test 09/08/17 13:05 09/08/17 16:10 09/08/17 21:43 09/09/17 00:58 Bedside Glucose 117 122 125 117 Test 09/09/17 05:08 09/09/17 05:27 09/09/17 08:00 Bedside Glucose 104 117 White Blood Count 5.1 # Red Blood Count 3.36 L Hemoglobin 9.6 L Hematocrit 30.3 L Mean Corpuscular Volume 90.2 Mean Corpuscular Hemoglobin 28.6 L Mean Corpuscular Hemoglobin Concent 31.7 L Red Cell Distribution Width 14.3 Platelet Count 214 # Mean Platelet Volume 10.9 H Neutrophils % 48.5 Lymphocytes % 35.6 Monocytes % 8.0 Eosinophils % 6.3 Basophils % 1.2 Nucleated Red Blood Cells % 0.0 Neutrophils # 2.5 Lymphocytes # 1.8 Monocytes # 0.4 Eosinophils # 0.3 Basophils # 0.1 Nucleated Red Blood Cells # 0.0 Prothrombin Time 15.5 H Prothrombin Time Ratio 1.2 INR International Normalized Ratio 1.22 Activated Partial Thromboplast Time 30.3 Sodium Level 137 Potassium Level 4.6 Chloride Level 101 Carbon Dioxide Level 30 Anion Gap 11 Blood Urea Nitrogen 55 H Creatinine 4.19 H Glucose Level 95 Calcium Level 8.1 L Medications Current Medications Diagnostic Test (Pha) (Accu-Chek) 1 ea 02 XX Last administered on 08/31/17t 01 :33; Admin Dose 1 EA; Start 08/23/17 at 02:00 Miscellaneous Information 1 ea NOTE XX ; Start 08/22/17 at 13:30 Glucose (Glutose) 15 gm Q15M PRN PO DECREASED GLUCOSE; Start 08/22/17 at 13:30 Glucose (Glutose) 22.5 gm Q15M PRN PO DECREASED GLUCOSE; Start 08/22/17 at 13: 30 Dextrose (D50w Syringe) 25 ml Q15M PRN IV DECREASED GLUCOSE Last administered on 09/07/17 17:50; Admin Dose 25 ML; Start 08/22/17 at 13:30 Dextrose (D50w Syringe) 50 ml Q15M PRN IV DECREASED GLUCOSE Last administered on 09/07/17 21:54; Admin Dose 50 ML; Start 08/22/17 at 13:30 Glucagon (Glucagen) 1 mg Q15M PRN IM DECREASED GLUCOSE; Start 08/22/17 at 13:30 Glucose (Glutose) 15 gm Q15M PRN BUCCAL DECREASED GLUCOSE; Start 08/22/17 at 13 :30 Sodium Hypochlorite (Dakin'S (Dilute 1/40%)) 1 applic BID IRR Last administered on 09/09/17 08:04; Admin Dose 1 APPLIC; Start 08/23/17 at 09:00 Metoprolol Tartrate (Lopressor) 50 mg BID GTB Last administered on 09/09/17 08:04; Admin Dose 50 MG; Start 08/24/17 at 21:00 Acetaminophen (Tylenol Tab) 500 mg Q4H PRN PO PAIN AND OR ELEVATED TEMP Last administered on 08/27/17 01:27; Admin Dose 500 MG; Start 08/25/17 at 12:00 Morphine Sulfate (morphine) 2 mg Q4H PRN IV PAIN LEVEL 4-6 Last administered on 09/03/17 20:38; Admin Dose 2 MG; Start 08/25/17 at 12:00 Lansoprazole (Prevacid) 30 mg DAILY@06 GTB Last administered on 09/09/17 05: 11; Admin Dose 30 MG; Start 08/29/17 at 06:00 Insulin Aspart (Novolog Insulin Pen) (Adult SC Insulin - Mild Algorithm)... Q4 SC Last administered on 09/05/17 17:51; Admin Dose 1 UNIT; Start 08/31/17 at 16:00 Lisinopril (Zestril) 20 mg BID PO Last administered on 09/09/17 08:04; Admin Dose 20 MG; Start 09/02/17 at 21:00 Clonidine (Catapres) 0.1 mg Q6H PRN GTB ELEVATED SYSTOLIC BP Last administered on 09/06/17 05:33; Admin Dose 0.1 MG; Start 09/02/17 at 21:30 Epoetin Bo (Epogen (Esrd)) 2,000 units MoWeFr@17 SC Last administered on 17:53; Admin Dose 2,000 UNITS; Start 09/05/17 at 17:00 Epoetin Bo 3000 units 3,000 units MoWeFr@17 SC Last administered on 17:51; Admin Dose 3,000 UNITS; Start 09/05/17 at 17:00 Dextrose/Sodium Chloride (D5-1/2ns) 1,000 ml @ 30 mls/hr Q24H IV Last administered on 09/09/17 11:38; Admin Dose 30 MLS/HR; Start 09/07/17 at 22:30 Insulin Glargine (Lantus) 10 unit DAILY SC ; Start 09/08/17 at 09:00 Assessment/Plan Chief Complaint/Hosp Course SUBJECTIVE: No acute changes. The patient is lying comfortably in bed. No fevers. ANTIMICROBIALS: none INDWELLINGS: Trach, PEG, Chun, R fem Calos catheter and left upper extremity PICC line. PHYSICAL EXAMINATION: GENERAL: This is a chronically ill-appearing, elderly man in no distress. HEENT: Head atraumatic, normocephalic. Sclerae anicteric. Buccal mucosa dry. NECK: Obese. CHEST: Rise symmetrical. Breath sounds clear, diminished to bases. HEART: S1, S2. ABDOMEN: Soft. Bowel sounds present. EXTREMITIES: With trace edema. ASSESSMENT: 1. Status post septic shock. 2. Acute on chronic respiratory failure . 3. Healthcare-associated pneumonia==> completed abx. 4. Sacral decubitus. 5. 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 6. Diabetes. 7. Chronic encephalopathy. PLAN: Remains stable, off antibiotics, continue local wound care, vent per pulmonary, pending perm-cath [facility] staff Problems: BISI MARTIN NP Sep 09, 2017 12:50
--- NOTE | 2017-09-09 12:55 | CONS ---
Date/Time of Note Date/Time of Note DATE: 09/09/17 TIME: 12:49 Assessment/Plan Assessment/Plan Chief Complaint/Hosp Course IMPRESSION: 1. Positive troponin-in the setting of renal failure-No sig uptrend 2. Abnormal electrocardiogram, nonspecific ST-T abnormalities. 3. Hypertension-well controlled 4. Respiratory failure, chronic. 5. Renal failure, acute on chronic. 6. Dysphagia, status post G-tube. 7. Anemia-ongoing 8. Thrombocytopenia-Slowly improving 9. Encephalopathy. 10. History of CVA. 11. Diabetes mellitus. 12. Hypokalemia 14. Cardiomyopathy-depressed EF 40% Recc: -Tele -Continue BB/ACEI with uptitration to improve BP control -trend cardiac enzymes -follow volume status with HD for volume removal ongoing today -Will start low dose asa -Continue abx's and f/u cx data Problems: Consultation Date/Type/Reason Admit Date/Time Aug 20, 2017 at 17:03 Initial Consult Date 08/20/17 Type of Consultation: cardiology Reason for Consultation positive troponin Referring Provider: HUSSEIN ROSE Exam/Review of Systems Vital Signs Vitals Vital Signs Date Time Temp Pulse Resp B/P Pulse Ox O2 Delivery O2 Flow Rate FiO2 09/09/17 12:10 72 09/09/17 11:31 97.9 20 146/74 100 09/09/17 11:15 30 09/05/17 12:23 Mechanical Ventilator Intake and Output 09/08/17 09/08/17 09/09/17 15:00 23:00 07:00 Intake Total 400 ml 630 ml Balance 400 ml 630 ml Exam Review of Systems: CONSTITUTIONAL: No fevers, chills. PULMONARY: No sob CARDIOVASCULAR: No chest pain/palpitations GASTROINTESTINAL: No nausea/vomiting. GENITOURINARY: No hematuria/dysuria. MUSCULOSKELETAL: No myagias/arthalgias. PSYCHIATRIC: The patient denies depression. NEUROLOGIC: encephalopathic Constitutional: alert Psych: no complaints Head: normocephalic ENMT: mucosa pink and moist Neck: jvd (9 cmwater), other (trached), supple Respiratory: diminished breath sounds (at bases/B) Cardiovascular: regular rate and rhythm Gastrointestinal: non-tender, soft Musculoskeletal: muscle weakness (generalized) Extremities: edema (trace/B) Neurological: other (No focal deficits) Results Result Diagram: 09/09/17 0527 09/09/17 0527 Results 24 hrs Laboratory Tests Test 09/08/17 13:05 09/08/17 16:10 09/08/17 21:43 09/09/17 00:58 Bedside Glucose 117 122 125 117 Test 09/09/17 05:08 09/09/17 05:27 09/09/17 08:00 Bedside Glucose 104 117 White Blood Count 5.1 # Red Blood Count 3.36 L Hemoglobin 9.6 L Hematocrit 30.3 L Mean Corpuscular Volume 90.2 Mean Corpuscular Hemoglobin 28.6 L Mean Corpuscular Hemoglobin Concent 31.7 L Red Cell Distribution Width 14.3 Platelet Count 214 # Mean Platelet Volume 10.9 H Neutrophils % 48.5 Lymphocytes % 35.6 Monocytes % 8.0 Eosinophils % 6.3 Basophils % 1.2 Nucleated Red Blood Cells % 0.0 Neutrophils # 2.5 Lymphocytes # 1.8 Monocytes # 0.4 Eosinophils # 0.3 Basophils # 0.1 Nucleated Red Blood Cells # 0.0 Prothrombin Time 15.5 H Prothrombin Time Ratio 1.2 INR International Normalized Ratio 1.22 Activated Partial Thromboplast Time 30.3 Sodium Level 137 Potassium Level 4.6 Chloride Level 101 Carbon Dioxide Level 30 Anion Gap 11 Blood Urea Nitrogen 55 H Creatinine 4.19 H Glucose Level 95 Calcium Level 8.1 L Medications Medications Current Medications Diagnostic Test (Pha) (Accu-Chek) 1 ea 02 XX Last administered on 08/31/17 01 :33; Admin Dose 1 EA; Start 08/23/17 at 02:00 Miscellaneous Information 1 ea NOTE XX ; Start 08/22/17 at 13:30 Glucose (Glutose) 15 gm Q15M PRN PO DECREASED GLUCOSE; Start 08/22/17 at 13:30 Glucose (Glutose) 22.5 gm Q15M PRN PO DECREASED GLUCOSE; Start 08/22/17 at 13: 30 Dextrose (D50w Syringe) 25 ml Q15M PRN IV DECREASED GLUCOSE Last administered on 09/07/17 17:50; Admin Dose 25 ML; Start 08/22/17 at 13:30 Dextrose (D50w Syringe) 50 ml Q15M PRN IV DECREASED GLUCOSE Last administered on 09/07/17 21:54; Admin Dose 50 ML; Start 08/22/17 at 13:30 Glucagon (Glucagen) 1 mg Q15M PRN IM DECREASED GLUCOSE; Start 08/22/17 at 13:30 Glucose (Glutose) 15 gm Q15M PRN BUCCAL DECREASED GLUCOSE; Start 08/22/17 at 13 :30 Sodium Hypochlorite (Dakin'S (Dilute 1/40%)) 1 applic BID IRR Last administered on 09/09/17 08:04; Admin Dose 1 APPLIC; Start 08/23/17 at 09:00 Metoprolol Tartrate (Lopressor) 50 mg BID GTB Last administered on 09/09/17 08:04; Admin Dose 50 MG; Start 08/24/17 at 21:00 Acetaminophen (Tylenol Tab) 500 mg Q4H PRN PO PAIN AND OR ELEVATED TEMP Last administered on 08/27/17 01:27; Admin Dose 500 MG; Start 08/25/17 at 12:00 Morphine Sulfate (morphine) 2 mg Q4H PRN IV PAIN LEVEL 4-6 Last administered on 09/03/17 20:38; Admin Dose 2 MG; Start 08/25/17 at 12:00 Lansoprazole (Prevacid) 30 mg DAILY@06 GTB Last administered on 09/09/17 05: 11; Admin Dose 30 MG; Start 08/29/17 at 06:00 Insulin Aspart (Novolog Insulin Pen) (Adult SC Insulin - Mild Algorithm)... Q4 SC Last administered on 09/05/17 17:51; Admin Dose 1 UNIT; Start 08/31/17 at 16:00 Lisinopril (Zestril) 20 mg BID PO Last administered on 09/09/17 08:04; Admin Dose 20 MG; Start 09/02/17 at 21:00 Clonidine (Catapres) 0.1 mg Q6H PRN GTB ELEVATED SYSTOLIC BP Last administered on 09/06/17 05:33; Admin Dose 0.1 MG; Start 09/02/17 at 21:30 Epoetin Bo (Epogen (Esrd)) 2,000 units MoWeFr@17 SC Last administered on 17:53; Admin Dose 2,000 UNITS; Start 09/05/17 at 17:00 Epoetin Bo 3000 units 3,000 units MoWeFr@17 SC Last administered on 17:51; Admin Dose 3,000 UNITS; Start 09/05/17 at 17:00 Dextrose/Sodium Chloride (D5-1/2ns) 1,000 ml @ 30 mls/hr Q24H IV Last administered on 09/09/17 11:38; Admin Dose 30 MLS/HR; Start 09/07/17 at 22:30 Insulin Glargine (Lantus) 10 unit DAILY SC ; Start 09/08/17 at 09:00 BRENTON NORTON Sep 09, 2017 12:55
--- NOTE | 2017-09-09 13:55 | PN ---
Date/Time of Note Date/Time of Note DATE: 09/09/17 TIME: 13:54 Assessment/Plan Lines/Catheters IV Catheter Type (from Nrsg): PICC Line Chun in Place (from Nrsg): No Assessment/Plan Chief Complaint/Hosp Course ESRD Plan for Permcath placement after anesthesia consent available Problems: Subjective 24 Hr Interval Summary Constitutional: improved Pain Control: mild Exam/Review of Systems Vital Signs Vitals Vital Signs Date Time Temp Pulse Resp B/P Pulse Ox O2 Delivery O2 Flow Rate FiO2 09/09/17 13:01 73 24 97 30 09/09/17 11:31 97.9 146/74 09/05/17 12:23 Mechanical Ventilator Intake and Output 09/08/17 09/08/17 09/09/17 15:00 23:00 07:00 Intake Total 400 ml 630 ml Balance 400 ml 630 ml Exam Neck: non-tender, supple Respiratory: clear to auscultation, normal air movement Cardiovascular: nl pulses, regular rate and rhythm Gastrointestinal: nl liver, spleen, non-tender, soft Results Result Diagram: 09/09/17 0527 09/09/17 0527 LULÚ MIRANDA MD Sep 09, 2017 13:55
--- NOTE | 2017-09-09 15:42 | PN ---
Date/Time of Note Date/Time of Note DATE: 09/09/17 TIME: 15:40 Assessment/Plan VTE Prophylaxis VTE Prophylaxis Intervention: SCD's Lines/Catheters [facility] P[facility] Line Central line still needed: Yes Urinary Cath still in place: No Assessment/Plan Chief Complaint/Hosp Course No acute events overnight, patient remains hemodynamically stable, pending permacath placement upon anesthesia consent. Patient's son signed consent for permacath placement however anesthesia and nursing has difficulty reaching patient 's son to obtain anesthesia consent. Assessment/Plan -Acute on chronic CKD. Continue hemodialysis. Dr. Nieto is following in nephrology consultation. -Ventilator dependent respiratory failure with tracheostomy. -Pulmonary edema versus multifocal pneumonia, status post treatment with antibiotics. Dr Hill is following in infection disease consultation -Positive troponin in the setting of renal disease, Dr. Zuniga is following in cardiology consultation -Acute metabolic encephalopathy -Anemia, s/p blood transfusion, continue Epogen, continue to monitor hemoglobin and hematocrit -DM, continue Lantus, NovoLog per sliding scale. -Dysphagia with PEG -Sacral wound Further recommendations based on clinical course. Plan of care discussed with Dr. Chávez. Problems: Exam/Review of Systems Vital Signs Vitals Vital Signs Date Time Temp Pulse Resp B/P Pulse Ox O2 Delivery O2 Flow Rate FiO2 09/09/17 13:01 73 24 97 30 09/09/17 11:31 97.9 146/74 09/05/17 12:23 Mechanical Ventilator Intake and Output 09/08/17 09/08/17 09/09/17 15:00 23:00 07:00 Intake Total 400 ml 630 ml Balance 400 ml 630 ml Exam Constitutional: non-verbal Head: normocephalic Neck: supple Respiratory: diminished breath sounds Cardiovascular: nl pulses Gastrointestinal: non-tender, other (G-tube), soft Extremities: edema Results Result Diagram: 09/09/1727 09/09/17526 Results 24 hrs Laboratory Tests Test 09/08/17 16:10 09/08/17 21:43 09/09/17 00:58 09/09/17 05:08 Bedside Glucose 122 125 117 104 Test 09/09/17 05:27 09/09/17 08:00 09/09/17 12:52 White Blood Count 5.1 # Red Blood Count 3.36 L Hemoglobin 9.6 L Hematocrit 30.3 L Mean Corpuscular Volume 90.2 Mean Corpuscular Hemoglobin 28.6 L Mean Corpuscular Hemoglobin Concent 31.7 L Red Cell Distribution Width 14.3 Platelet Count 214 # Mean Platelet Volume 10.9 H Neutrophils % 48.5 Lymphocytes % 35.6 Monocytes % 8.0 Eosinophils % 6.3 Basophils % 1.2 Nucleated Red Blood Cells % 0.0 Neutrophils # 2.5 Lymphocytes # 1.8 Monocytes # 0.4 Eosinophils # 0.3 Basophils # 0.1 Nucleated Red Blood Cells # 0.0 Prothrombin Time 15.5 H Prothrombin Time Ratio 1.2 INR International Normalized Ratio 1.22 Activated Partial Thromboplast Time 30.3 Sodium Level 137 Potassium Level 4.6 Chloride Level 101 Carbon Dioxide Level 30 Anion Gap 11 Blood Urea Nitrogen 55 H Creatinine 4.19 H Glucose Level 95 Calcium Level 8.1 L Bedside Glucose 117 100 Medications Medications Current Medications Diagnostic Test (Pha) (Accu-Chek) 1 ea 02 XX Last administered on 08/31/17 01 :33; Admin Dose 1 EA; Start 08/23/17 at 02:00 Miscellaneous Information 1 ea NOTE XX ; Start 08/22/17 at 13:30 Glucose (Glutose) 15 gm Q15M PRN PO DECREASED GLUCOSE; Start 08/22/17 at 13:30 Glucose (Glutose) 22.5 gm Q15M PRN PO DECREASED GLUCOSE; Start 08/22/17 at 13: 30 Dextrose (D50w Syringe) 25 ml Q15M PRN IV DECREASED GLUCOSE Last administered on 09/07/17 17:50; Admin Dose 25 ML; Start 08/22/17 at 13:30 Dextrose (D50w Syringe) 50 ml Q15M PRN IV DECREASED GLUCOSE Last administered on 09/07/17 21:54; Admin Dose 50 ML; Start 08/22/17 at 13:30 Glucagon (Glucagen) 1 mg Q15M PRN IM DECREASED GLUCOSE; Start 08/22/17 at 13:30 Glucose (Glutose) 15 gm Q15M PRN BUCCAL DECREASED GLUCOSE; Start 08/22/17 at 13 :30 Sodium Hypochlorite (Dakin'S (Dilute 1/40%)) 1 applic BID IRR Last administered on 09/09/17 08:04; Admin Dose 1 APPLIC; Start 08/23/17 at 09:00 Metoprolol Tartrate (Lopressor) 50 mg BID GTB Last administered on 09/09/17 08:04; Admin Dose 50 MG; Start 08/24/17 at 21:00 Acetaminophen (Tylenol Tab) 500 mg Q4H PRN PO PAIN AND OR ELEVATED TEMP Last administered on 08/27/17 01:27; Admin Dose 500 MG; Start 08/25/17 at 12:00 Morphine Sulfate (morphine) 2 mg Q4H PRN IV PAIN LEVEL 4-6 Last administered on 09/03/17 20:38; Admin Dose 2 MG; Start 08/25/17 at 12:00 Lansoprazole (Prevacid) 30 mg DAILY@06 GTB Last administered on 09/09/17 05: 11; Admin Dose 30 MG; Start 08/29/17 at 06:00 Insulin Aspart (Novolog Insulin Pen) (Adult SC Insulin - Mild Algorithm)... Q4 SC Last administered on 09/05/17 17:51; Admin Dose 1 UNIT; Start 08/31/17 at 16:00 Lisinopril (Zestril) 20 mg BID PO Last administered on 09/09/17 08:04; Admin Dose 20 MG; Start 09/02/17 at 21:00 Clonidine (Catapres) 0.1 mg Q6H PRN GTB ELEVATED SYSTOLIC BP Last administered on 09/06/17 05:33; Admin Dose 0.1 MG; Start 09/02/17 at 21:30 Epoetin Bo (Epogen (Esrd)) 2,000 units MoWeFr@17 SC Last administered on 17:53; Admin Dose 2,000 UNITS; Start 09/05/17 at 17:00 Epoetin Bo 3000 units 3,000 units MoWeFr@17 SC Last administered on 17:51; Admin Dose 3,000 UNITS; Start 09/05/17 at 17:00 Dextrose/Sodium Chloride (D5-1/2ns) 1,000 ml @ 30 mls/hr Q24H IV Last administered on 09/09/17 11:38; Admin Dose 30 MLS/HR; Start 09/07/17 at 22:30 Insulin Glargine (Lantus) 10 unit DAILY SC ; Start 09/08/17 at 09:00 ARLETH MCKNIGHT Sep 09, 2017 15:42
[2017-09-09] MEDS: EPOETIN 3000 UNITS/1 ML INJ (ESRD) SC SCH (17:00)
[2017-09-09] MEDS: EPOETIN 2000 UNITS/1 ML INJ (ESRD) SC SCH (17:00)
--- NOTE | 2017-09-09 18:24 | RADRPT ---
PROCEDURE: US right lower extremity veins. CLINICAL INDICATION: Right leg pain and swelling. TECHNIQUE: Multiple longitudinal and transverse images of the right lower extremity veins were obt ained with maldonado scale and color Doppler imaging. The common femoral vein, femoral vein, and poplitea l vein were evaluated. 2D grayscale measurements with compression sonography, pulsed Doppler, color Doppler, and pulsed Doppler with augmentation. COMPARISON: No prior studies are available for comparison. FINDINGS: The right common femoral, femoral and popliteal veins are normally compressible throughout the visua lized portions. The proximal right femoral vein is not visualized due to patient inability to evelyn ate.. Color flow demonstrates normal filling of the vessels. Normal waveforms are visualized and t here is normal response to augmentation. IMPRESSION: 1. No evidence of deep vein thrombosis involving the visualized portions of the right lower extremi ty. 2. The proximal right femoral vein is not visualized. RPTAT: QQ .Javi Bruno MD, MD Date Time Electronically viewed and signed by .Javi Bruno MD, on 09/09/2017 18:23 .R/
--- NOTE | 2017-09-09 18:46 | CONS ---
Date/Time of Note Date/Time of Note DATE: 09/09/17 TIME: 18:44 Assessment/Plan Assessment/Plan Additional Assessment/Plan 1. Sepsis due to PNA 2. Acute on chronic renal failure - with severe metabolic acidosis and acute uremic encephalopathy- pt is anuric, started on HD during this admission 3. AMS due to acute uremic encephalopathy + acute metabolic encephalopathy 3. H/o recent admission to [place] for renal failure 4. H/o chronic resp failure s/p tracheostomy 5. HTN 6. H/o CVA with residual weakness 7.. IDDM 8. Anemia,severe, anemia of chronic disease, 9. 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 will plan for permacath when consent is obtained from son Outpatient HD placement is requested at [facility] IV abx as per ID will follow up Consultation Date/Type/Reason Admit Date/Time Aug 20, 2017 at 17:03 Initial Consult Date 08/20/17 Type of Consultation: NEPHROLGOY Referring Provider: HUSSEIN ROSE 24 HR Interval Summary Free Text/Dictation not able to get consent from pt son, no fever, no chills , leg swelling Exam/Review of Systems Vital Signs Vitals Vital Signs Date Time Temp Pulse Resp B/P Pulse Ox O2 Delivery O2 Flow Rate FiO2 09/09/17 17:28 74 24 97 30 09/09/17 15:54 98.4 142/65 09/05/17 12:23 Mechanical Ventilator Intake and Output 09/08/17 09/08/17 09/09/17 15:00 23:00 07:00 Intake Total 400 ml 630 ml Balance 400 ml 630 ml Exam Constitutional: non-verbal ENMT: other (+ tracheostomy on ventilator ) Respiratory: congested cough, crackles/rales, diminished breath sounds Cardiovascular: S3, regular rate and rhythm Gastrointestinal: non-tender, soft Musculoskeletal: other (2+ pittign edema ), swelling Neurological: other (non verbal pt is s/p tracheostomy on ventilator ) Results Result Diagram: 09/09/1752609/09/17526 Results 24 hrs Laboratory Tests Test 09/08/17 21:43 09/09/17 00:58 09/09/17 05:08 09/09/17 05:27 Bedside Glucose 125 117 104 White Blood Count 5.1 # Red Blood Count 3.36 L Hemoglobin 9.6 L Hematocrit 30.3 L Mean Corpuscular Volume 90.2 Mean Corpuscular Hemoglobin 28.6 L Mean Corpuscular Hemoglobin Concent 31.7 L Red Cell Distribution Width 14.3 Platelet Count 214 # Mean Platelet Volume 10.9 H Neutrophils % 48.5 Lymphocytes % 35.6 Monocytes % 8.0 Eosinophils % 6.3 Basophils % 1.2 Nucleated Red Blood Cells % 0.0 Neutrophils # 2.5 Lymphocytes # 1.8 Monocytes # 0.4 Eosinophils # 0.3 Basophils # 0.1 Nucleated Red Blood Cells # 0.0 Prothrombin Time 15.5 H Prothrombin Time Ratio 1.2 INR International Normalized Ratio 1.22 Activated Partial Thromboplast Time 30.3 Sodium Level 137 Potassium Level 4.6 Chloride Level 101 Carbon Dioxide Level 30 Anion Gap 11 Blood Urea Nitrogen 55 H Creatinine 4.19 H Glucose Level 95 Calcium Level 8.1 L Test 09/09/17 08:00 09/09/17 12:52 09/09/17 17:28 Bedside Glucose 117 100 108 Medications Medications Current Medications Diagnostic Test (Pha) (Accu-Chek) 1 ea 02 XX Last administered on 08/31/17 01 :33; Admin Dose 1 EA; Start 08/23/17 at 02:00 Miscellaneous Information 1 ea NOTE XX ; Start 08/22/17 at 13:30 Glucose (Glutose) 15 gm Q15M PRN PO DECREASED GLUCOSE; Start 08/22/17 at 13:30 Glucose (Glutose) 22.5 gm Q15M PRN PO DECREASED GLUCOSE; Start 08/22/17 at 13: 30 Dextrose (D50w Syringe) 25 ml Q15M PRN IV DECREASED GLUCOSE Last administered on 09/07/17 17:50; Admin Dose 25 ML; Start 08/22/17 at 13:30 Dextrose (D50w Syringe) 50 ml Q15M PRN IV DECREASED GLUCOSE Last administered on 09/07/17 21:54; Admin Dose 50 ML; Start 08/22/17 at 13:30 Glucagon (Glucagen) 1 mg Q15M PRN IM DECREASED GLUCOSE; Start 08/22/17 at 13:30 Glucose (Glutose) 15 gm Q15M PRN BUCCAL DECREASED GLUCOSE; Start 08/22/17 at 13 :30 Sodium Hypochlorite (Dakin'S (Dilute 1/40%)) 1 applic BID IRR Last administered on 09/09/17 08:04; Admin Dose 1 APPLIC; Start 08/23/17 at 09:00 Metoprolol Tartrate (Lopressor) 50 mg BID GTB Last administered on 09/09/17 08:04; Admin Dose 50 MG; Start 08/24/17 at 21:00 Acetaminophen (Tylenol Tab) 500 mg Q4H PRN PO PAIN AND OR ELEVATED TEMP Last administered on 08/27/17 01:27; Admin Dose 500 MG; Start 08/25/17 at 12:00 Morphine Sulfate (morphine) 2 mg Q4H PRN IV PAIN LEVEL 4-6 Last administered on 09/03/17 20:38; Admin Dose 2 MG; Start 08/25/17 at 12:00 Lansoprazole (Prevacid) 30 mg DAILY@06 GTB Last administered on 09/09/17 05: 11; Admin Dose 30 MG; Start 08/29/17 at 06:00 Insulin Aspart (Novolog Insulin Pen) (Adult SC Insulin - Mild Algorithm)... Q4 SC Last administered on 09/05/17 17:51; Admin Dose 1 UNIT; Start 08/31/17 at 16:00 Lisinopril (Zestril) 20 mg BID PO Last administered on 09/09/17 08:04; Admin Dose 20 MG; Start 09/02/17 at 21:00 Clonidine (Catapres) 0.1 mg Q6H PRN GTB ELEVATED SYSTOLIC BP Last administered on 09/06/17 05:33; Admin Dose 0.1 MG; Start 09/02/17 at 21:30 Epoetin Bo (Epogen (Esrd)) 2,000 units MoWeFr@17 SC Last administered on 17:53; Admin Dose 2,000 UNITS; Start 09/05/17 at 17:00 Epoetin Bo 3000 units 3,000 units MoWeFr@17 SC Last administered on 17:51; Admin Dose 3,000 UNITS; Start 09/05/17 at 17:00 Dextrose/Sodium Chloride (D5-1/2ns) 1,000 ml @ 30 mls/hr Q24H IV Last administered on 09/09/17t 11:38; Admin Dose 30 MLS/HR; Start 09/07/17 at 22:30 Insulin Glargine (Lantus) 10 unit DAILY SC ; Start 09/08/17 at 09:00 LUCILLE CABALLERO MD Sep 09, 2017 18:46
[2017-09-10] VITALS (22 sets, daily range): BP systolic 132–158; BP diastolic 60–74; PULSE 72–80; RESP 17–24
[2017-09-10] MEDS: INSULIN ASPART [NOVOLOG] 3 ML PEN SC SCH ×6 (01:00→21:00)
[2017-09-10] MEDS: ACCU-CHEK XX SCH (01:33)
[2017-09-10] MEDS: LANSOPRAZOLE 30 MG CAP GTB SCH (05:14)
[2017-09-10] MEDS: SODIUM HYPOCHLORITE 1/40% 1L IRRIG IRR SCH ×3 (09:00→22:05)
[2017-09-10] MEDS: METOPROLOL 50 MG TAB GTB SCH ×2 (09:15→21:51)
[2017-09-10] MEDS: LISINOPRIL 20 MG TAB PO SCH ×2 (09:15→21:51)
[2017-09-10] MEDS: INSULIN GLARGINE [LANtus] 3 ML PEN SC SCH (09:45)
--- NOTE | 2017-09-10 13:45 | CONS ---
Date/Time of Note Date/Time of Note DATE: 09/10/17 TIME: 13:44 Consult Date/Type/Reason Admit Date/Time Aug 20, 2017 at 17:03 Initial Consult Date 08/20/17 Type of Consultation: ID Ordering Provider: HUSSEIN ROSE Objective Vital Signs Date Time Temp Pulse Resp B/P Pulse Ox O2 Delivery O2 Flow Rate FiO2 09/10/17 12:02 76 09/10/17 11:46 98.9 20 153/74 94 09/10/17 11:40 30 09/10/17 11:05 Mechanical Ventilator Intake and Output 09/09/17 09/09/17 09/10/17 15:00 23:00 07:00 Intake Total 40 ml 640 ml Balance 40 ml 640 ml Results/Medications Result Diagram: 09/10/17 0550 09/10/17 0550 Results 24 hrs Laboratory Tests Test 09/09/17 17:28 09/09/17 21:55 09/10/17 01:32 09/10/17 05:11 Bedside Glucose 108 129 132 115 Test 09/10/17 05:50 09/10/17 09:12 09/10/17 12:29 White Blood Count 6.0 Red Blood Count 3.36 L Hemoglobin 9.4 L Hematocrit 30.3 L Mean Corpuscular Volume 90.2 Mean Corpuscular Hemoglobin 28.0 L Mean Corpuscular Hemoglobin Concent 31.0 L Red Cell Distribution Width 14.6 H Platelet Count 253 Mean Platelet Volume 10.6 H Neutrophils % 61.6 Lymphocytes % 25.5 Monocytes % 6.5 Eosinophils % 5.4 Basophils % 0.8 Nucleated Red Blood Cells % 0.0 Neutrophils # 3.7 Lymphocytes # 1.5 Monocytes # 0.4 Eosinophils # 0.3 Basophils # 0.1 Nucleated Red Blood Cells # 0.0 Sodium Level 137 Potassium Level 4.9 Chloride Level 101 Carbon Dioxide Level 27 Anion Gap 14 Blood Urea Nitrogen 59 H Creatinine 4.60 H Glucose Level 118 Calcium Level 8.1 L Bedside Glucose 133 127 Medications Current Medications Diagnostic Test (Pha) (Accu-Chek) 1 ea 02 XX Last administered on 08/31/17t 01 :33; Admin Dose 1 EA; Start 08/23/17 at 02:00 Miscellaneous Information 1 ea NOTE XX ; Start 08/22/17 at 13:30 Glucose (Glutose) 15 gm Q15M PRN PO DECREASED GLUCOSE; Start 08/22/17 at 13:30 Glucose (Glutose) 22.5 gm Q15M PRN PO DECREASED GLUCOSE; Start 08/22/17 at 13: 30 Dextrose (D50w Syringe) 25 ml Q15M PRN IV DECREASED GLUCOSE Last administered on 09/07/17 17:50; Admin Dose 25 ML; Start 08/22/17 at 13:30 Dextrose (D50w Syringe) 50 ml Q15M PRN IV DECREASED GLUCOSE Last administered on 09/07/17 21:54; Admin Dose 50 ML; Start 08/22/17 at 13:30 Glucagon (Glucagen) 1 mg Q15M PRN IM DECREASED GLUCOSE; Start 08/22/17 at 13:30 Glucose (Glutose) 15 gm Q15M PRN BUCCAL DECREASED GLUCOSE; Start 08/22/17 at 13 :30 Sodium Hypochlorite (Dakin'S (Dilute 1/40%)) 1 applic BID IRR Last administered on 09/09/17 21:50; Admin Dose 1 APPLIC; Start 08/23/17 at 09:00 Metoprolol Tartrate (Lopressor) 50 mg BID GTB Last administered on 09/10/17 09:15; Admin Dose 50 MG; Start 08/24/17 at 21:00 Acetaminophen (Tylenol Tab) 500 mg Q4H PRN PO PAIN AND OR ELEVATED TEMP Last administered on 08/27/17 01:27; Admin Dose 500 MG; Start 08/25/17 at 12:00 Morphine Sulfate (morphine) 2 mg Q4H PRN IV PAIN LEVEL 4-6 Last administered on 09/03/17 20:38; Admin Dose 2 MG; Start 08/25/17 at 12:00 Lansoprazole (Prevacid) 30 mg DAILY@06 GTB Last administered on 09/10/17 05: 14; Admin Dose 30 MG; Start 08/29/17 at 06:00 Insulin Aspart (Novolog Insulin Pen) (Adult SC Insulin - Mild Algorithm)... Q4 SC Last administered on 09/05/17 17:51; Admin Dose 1 UNIT; Start 08/31/17 at 16:00 Lisinopril (Zestril) 20 mg BID PO Last administered on 09/10/17 09:15; Admin Dose 20 MG; Start 09/02/17 at 21:00 Clonidine (Catapres) 0.1 mg Q6H PRN GTB ELEVATED SYSTOLIC BP Last administered on 09/06/17 05:33; Admin Dose 0.1 MG; Start 09/02/17 at 21:30 Epoetin Bo (Epogen (Esrd)) 2,000 units MoWeFr@17 SC Last administered on 17:00; Admin Dose 2,000 UNITS; Start 09/05/17 at 17:00 Epoetin Bo (Epogen (Esrd)) 3,000 units MoWeFr@17 SC Last administered on 17:00; Admin Dose 3,000 UNITS; Start 09/05/17 at 17:00 Insulin Glargine (Lantus) 10 unit DAILY SC Last administered on 09/10/17 09: 45; Admin Dose 10 UNIT; Start 09/08/17 at 09:00 Assessment/Plan Chief Complaint/Hosp Course SUBJECTIVE: No acute changes. The patient is lying comfortably in bed. No fevers. ANTIMICROBIALS: none INDWELLINGS: Trach, PEG, Chun, R fem Calos catheter and left upper extremity PICC line. PHYSICAL EXAMINATION: GENERAL: This is a chronically ill-appearing, elderly man in no distress. HEENT: Head atraumatic, normocephalic. Sclerae anicteric. Buccal mucosa dry. NECK: Obese. CHEST: Rise symmetrical. Breath sounds clear, diminished to bases. HEART: S1, S2. ABDOMEN: Soft. Bowel sounds present. EXTREMITIES: With trace edema. ASSESSMENT: 1. Status post septic shock. 2. Acute on chronic respiratory failure . 3. Healthcare-associated pneumonia==> completed abx. 4. Sacral decubitus. 5. 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 6. Diabetes. 7. Chronic encephalopathy. PLAN: Remains stable, off antibiotics, continue local wound care, vent per pulmonary, pending perm-cath DW staff Problems: BISI MARTIN NP Sep 10, 2017 13:45
--- NOTE | 2017-09-10 14:40 | CONS ---
Date/Time of Note Date/Time of Note DATE: 09/10/17 TIME: 14:37 Assessment/Plan Assessment/Plan Chief Complaint/Hosp Course IMPRESSION: 1. Positive troponin-in the setting of renal failure-No sig uptrend 2. Abnormal electrocardiogram, nonspecific ST-T abnormalities. 3. Hypertension-currently elevated 4. Respiratory failure, chronic. 5. Renal failure, acute on chronic. 6. Dysphagia, status post G-tube. 7. Anemia-ongoing 8. Thrombocytopenia-Slowly improving 9. Encephalopathy. 10. History of CVA. 11. Diabetes mellitus. 12. Hypokalemia 14. Cardiomyopathy-depressed EF 40% Recc: -Tele -Continue BB/ACEI with uptitration to improve BP control -trend cardiac enzymes -follow volume status with HD for volume removal ongoing today -Continue asa -Continue abx's and f/u cx data Problems: Consultation Date/Type/Reason Admit Date/Time Aug 20, 2017 at 17:03 Initial Consult Date 08/20/17 Type of Consultation: cardiology Reason for Consultation positive troponin Referring Provider: HUSSEIN ROSE Exam/Review of Systems Vital Signs Vitals Vital Signs Date Time Temp Pulse Resp B/P Pulse Ox O2 Delivery O2 Flow Rate FiO2 09/10/17 12:02 76 09/10/17 11:46 98.9 20 153/74 94 09/10/17 11:40 30 09/10/17 11:05 Mechanical Ventilator Intake and Output 09/09/17 09/09/17 09/10/17 15:00 23:00 07:00 Intake Total 40 ml 640 ml Balance 40 ml 640 ml Exam Review of Systems: CONSTITUTIONAL: No fevers, chills. PULMONARY: TRached CARDIOVASCULAR: No chest pain/palpitations GASTROINTESTINAL: No nausea/vomiting. GENITOURINARY: No hematuria/dysuria. MUSCULOSKELETAL: No myagias/arthalgias. PSYCHIATRIC: The patient denies depression. NEUROLOGIC: encephalopathic Constitutional: other (encephalopathy) Head: normocephalic ENMT: mucosa pink and moist Neck: other (trached) Respiratory: other (upper airway rhonchi) Cardiovascular: regular rate and rhythm Gastrointestinal: non-tender, soft Musculoskeletal: muscle weakness (generalized) Extremities: pitting pedal edema (bilateral) Neurological: other (encephalopathic) Results Result Diagram: 09/10/17 0550 09/10/17 0550 Results 24 hrs Laboratory Tests Test 09/09/17 17:28 09/09/17 21:55 09/10/17 01:32 09/10/17 05:11 Bedside Glucose 108 129 132 115 Test 09/10/17 05:50 09/10/17 09:12 09/10/17 12:29 White Blood Count 6.0 Red Blood Count 3.36 L Hemoglobin 9.4 L Hematocrit 30.3 L Mean Corpuscular Volume 90.2 Mean Corpuscular Hemoglobin 28.0 L Mean Corpuscular Hemoglobin Concent 31.0 L Red Cell Distribution Width 14.6 H Platelet Count 253 Mean Platelet Volume 10.6 H Neutrophils % 61.6 Lymphocytes % 25.5 Monocytes % 6.5 Eosinophils % 5.4 Basophils % 0.8 Nucleated Red Blood Cells % 0.0 Neutrophils # 3.7 Lymphocytes # 1.5 Monocytes # 0.4 Eosinophils # 0.3 Basophils # 0.1 Nucleated Red Blood Cells # 0.0 Sodium Level 137 Potassium Level 4.9 Chloride Level 101 Carbon Dioxide Level 27 Anion Gap 14 Blood Urea Nitrogen 59 H Creatinine 4.60 H Glucose Level 118 Calcium Level 8.1 L Bedside Glucose 133 127 Medications Medications Current Medications Diagnostic Test (Pha) (Accu-Chek) 1 ea 02 XX Last administered on 08/31/17 01 :33; Admin Dose 1 EA; Start 08/23/17 at 02:00 Miscellaneous Information 1 ea NOTE XX ; Start 08/22/17 at 13:30 Glucose (Glutose) 15 gm Q15M PRN PO DECREASED GLUCOSE; Start 08/22/17 at 13:30 Glucose (Glutose) 22.5 gm Q15M PRN PO DECREASED GLUCOSE; Start 08/22/17 at 13: 30 Dextrose (D50w Syringe) 25 ml Q15M PRN IV DECREASED GLUCOSE Last administered on 09/07/17 17:50; Admin Dose 25 ML; Start 08/22/17 at 13:30 Dextrose (D50w Syringe) 50 ml Q15M PRN IV DECREASED GLUCOSE Last administered on 09/07/17 21:54; Admin Dose 50 ML; Start 08/22/17 at 13:30 Glucagon (Glucagen) 1 mg Q15M PRN IM DECREASED GLUCOSE; Start 08/22/17 at 13:30 Glucose (Glutose) 15 gm Q15M PRN BUCCAL DECREASED GLUCOSE; Start 08/22/17 at 13 :30 Sodium Hypochlorite (Dakin'S (Dilute 1/40%)) 1 applic BID IRR Last administered on 09/09/17 21:50; Admin Dose 1 APPLIC; Start 08/23/17 at 09:00 Metoprolol Tartrate (Lopressor) 50 mg BID GTB Last administered on 09/10/17 09:15; Admin Dose 50 MG; Start 08/24/17 at 21:00 Acetaminophen (Tylenol Tab) 500 mg Q4H PRN PO PAIN AND OR ELEVATED TEMP Last administered on 08/27/17 01:27; Admin Dose 500 MG; Start 08/25/17 at 12:00 Morphine Sulfate (morphine) 2 mg Q4H PRN IV PAIN LEVEL 4-6 Last administered on 09/03/17 20:38; Admin Dose 2 MG; Start 08/25/17 at 12:00 Lansoprazole (Prevacid) 30 mg DAILY@06 GTB Last administered on 09/10/17 05: 14; Admin Dose 30 MG; Start 08/29/17 at 06:00 Insulin Aspart (Novolog Insulin Pen) (Adult SC Insulin - Mild Algorithm)... Q4 SC Last administered on 09/05/17 17:51; Admin Dose 1 UNIT; Start 08/31/17 at 16:00 Lisinopril (Zestril) 20 mg BID PO Last administered on 09/10/17 09:15; Admin Dose 20 MG; Start 09/02/17 at 21:00 Clonidine (Catapres) 0.1 mg Q6H PRN GTB ELEVATED SYSTOLIC BP Last administered on 09/06/17 05:33; Admin Dose 0.1 MG; Start 09/02/17 at 21:30 Epoetin Bo (Epogen (Esrd)) 2,000 units MoWeFr@17 SC Last administered on 17:00; Admin Dose 2,000 UNITS; Start 09/05/17 at 17:00 Epoetin Bo (Epogen (Esrd)) 3,000 units MoWeFr@17 SC Last administered on 17:00; Admin Dose 3,000 UNITS; Start 09/05/17 at 17:00 Insulin Glargine (Lantus) 10 unit DAILY SC Last administered on 09/10/17 09: 45; Admin Dose 10 UNIT; Start 09/08/17 at 09:00 BRENTON NORTON Sep 10, 2017 14:40
--- NOTE | 2017-09-10 15:00 | PN ---
Date/Time of Note Date/Time of Note DATE: 09/10/17 TIME: 14:57 Assessment/Plan Lines/Catheters IV Catheter Type (from Nrs): PICC Line Urinary Cath still in place: No Assessment/Plan Assessment/Plan -Acute on chronic CKD. Continue hemodialysis. Dr. Nieto is following in nephrology consultation. -Ventilator dependent respiratory failure with tracheostomy. -Pulmonary edema versus multifocal pneumonia, status post treatment with antibiotics. Dr Hill is following in infection disease consultation -Positive troponin in the setting of renal disease, Dr. Zuniga is following in cardiology consultation -Acute metabolic encephalopathy -Anemia, s/p blood transfusion, continue Epogen, continue to monitor hemoglobin and hematocrit -DM, continue Lantus, NovoLog per sliding scale. -Dysphagia with PEG -Sacral wound Further recommendations based on clinical course. Plan of care discussed with Dr. Chávez. Subjective 24 Hr Interval Summary Free Text/Dictation awake at times, afebrile, No acute events overnight, pending permacath placement upon anesthesia consent. Patient's son signed consent for permacath placement however anesthesia and nursing has difficulty reaching patient 's son to obtain anesthesia consent.dw staff Subjective hx not possible: pt non-verbal Constitutional: requiring IVF, requiring O2 Exam/Review of Systems Vital Signs Vitals Vital Signs Date Time Temp Pulse Resp B/P Pulse Ox O2 Delivery O2 Flow Rate FiO2 09/10/17 13:05 77 24 96 30 09/10/17 11:46 98.9 153/74 09/10/17 11:05 Mechanical Ventilator Intake and Output 09/09/17 09/09/17 09/10/17 15:00 23:00 07:00 Intake Total 40 ml 640 ml Balance 40 ml 640 ml Exam Constitutional: obese ENMT: nl external ears & nose Respiratory: diminished breath sounds Cardiovascular: nl pulses Gastrointestinal: soft Musculoskeletal: nl extremities to inspection Extremities: normal pulses Results Result Diagram: 09/10/17 0550 09/10/17 0550 Results 24 hrs Laboratory Tests Test 09/09/17 17:28 09/09/17 21:55 09/10/17 01:32 09/10/17 05:11 Bedside Glucose 108 129 132 115 Test 09/10/17 05:50 09/10/17 09:12 09/10/17 12:29 White Blood Count 6.0 Red Blood Count 3.36 L Hemoglobin 9.4 L Hematocrit 30.3 L Mean Corpuscular Volume 90.2 Mean Corpuscular Hemoglobin 28.0 L Mean Corpuscular Hemoglobin Concent 31.0 L Red Cell Distribution Width 14.6 H Platelet Count 253 Mean Platelet Volume 10.6 H Neutrophils % 61.6 Lymphocytes % 25.5 Monocytes % 6.5 Eosinophils % 5.4 Basophils % 0.8 Nucleated Red Blood Cells % 0.0 Neutrophils # 3.7 Lymphocytes # 1.5 Monocytes # 0.4 Eosinophils # 0.3 Basophils # 0.1 Nucleated Red Blood Cells # 0.0 Sodium Level 137 Potassium Level 4.9 Chloride Level 101 Carbon Dioxide Level 27 Anion Gap 14 Blood Urea Nitrogen 59 H Creatinine 4.60 H Glucose Level 118 Calcium Level 8.1 L Bedside Glucose 133 127 Medications Medications Current Medications Diagnostic Test (Pha) (Accu-Chek) 1 ea 02 XX Last administered on 08/31/17 01 :33; Admin Dose 1 EA; Start 08/23/17 at 02:00 Miscellaneous Information 1 ea NOTE XX ; Start 08/22/17 at 13:30 Glucose (Glutose) 15 gm Q15M PRN PO DECREASED GLUCOSE; Start 08/22/17 at 13:30 Glucose (Glutose) 22.5 gm Q15M PRN PO DECREASED GLUCOSE; Start 08/22/17 at 13: 30 Dextrose (D50w Syringe) 25 ml Q15M PRN IV DECREASED GLUCOSE Last administered on 09/07/17 17:50; Admin Dose 25 ML; Start 08/22/17 at 13:30 Dextrose (D50w Syringe) 50 ml Q15M PRN IV DECREASED GLUCOSE Last administered on 09/07/17 21:54; Admin Dose 50 ML; Start 08/22/17 at 13:30 Glucagon (Glucagen) 1 mg Q15M PRN IM DECREASED GLUCOSE; Start 08/22/17 at 13:30 Glucose (Glutose) 15 gm Q15M PRN BUCCAL DECREASED GLUCOSE; Start 08/22/17 at 13 :30 Sodium Hypochlorite (Dakin'S (Dilute 1/40%)) 1 applic BID IRR Last administered on 09/09/17 21:50; Admin Dose 1 APPLIC; Start 08/23/17 at 09:00 Acetaminophen (Tylenol Tab) 500 mg Q4H PRN PO PAIN AND OR ELEVATED TEMP Last administered on 08/27/17 01:27; Admin Dose 500 MG; Start 08/25/17 at 12:00 Morphine Sulfate (morphine) 2 mg Q4H PRN IV PAIN LEVEL 4-6 Last administered on 09/03/17 20:38; Admin Dose 2 MG; Start 08/25/17 at 12:00 Lansoprazole (Prevacid) 30 mg DAILY@06 GTB Last administered on 09/10/17 05: 14; Admin Dose 30 MG; Start 08/29/17 at 06:00 Insulin Aspart (Novolog Insulin Pen) (Adult SC Insulin - Mild Algorithm)... Q4 SC Last administered on 09/05/17 17:51; Admin Dose 1 UNIT; Start 08/31/17 at 16:00 Lisinopril (Zestril) 20 mg BID PO Last administered on 09/10/17 09:15; Admin Dose 20 MG; Start 09/02/17 at 21:00 Clonidine (Catapres) 0.1 mg Q6H PRN GTB ELEVATED SYSTOLIC BP Last administered on 09/06/17 05:33; Admin Dose 0.1 MG; Start 09/02/17 at 21:30 Epoetin Bo (Epogen (Esrd)) 2,000 units MoWeFr@17 SC Last administered on 17:00; Admin Dose 2,000 UNITS; Start 09/05/17 at 17:00 Epoetin Bo (Epogen (Esrd)) 3,000 units MoWeFr@17 SC Last administered on 17:00; Admin Dose 3,000 UNITS; Start 09/05/17 at 17:00 Insulin Glargine (Lantus) 10 unit DAILY SC Last administered on 09/10/17 09: 45; Admin Dose 10 UNIT; Start 09/08/17 at 09:00 Metoprolol Tartrate (Lopressor) 75 mg BID GTB ; Start 09/10/17 at 21:00 LEILA GARCIA Sep 10, 2017 15:00
[2017-09-10] MEDS ORDERED: COLLAGENASE 30 GM TUBE TOP PRN (17:00)
--- NOTE | 2017-09-10 17:53 | CONS ---
Date/Time of Note Date/Time of Note DATE: 09/10/17 TIME: 17:53 Assessment/Plan Assessment/Plan Additional Assessment/Plan 1. Sepsis due to PNA 2. Acute on chronic renal failure - with severe metabolic acidosis and acute uremic encephalopathy- pt is anuric, started on HD during this admission 3. AMS due to acute uremic encephalopathy + acute metabolic encephalopathy 3. H/o recent admission to [facility] for renal failure 4. H/o chronic resp failure s/p tracheostomy 5. HTN 6. H/o CVA with residual weakness 7.. IDDM 8. Anemia,severe, anemia of chronic disease, 9. 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 will plan for permacath when consent is obtained from son Outpatient HD placement is [facility] IV abx as per ID will follow up Consultation Date/Type/Reason Admit Date/Time Aug 20, 2017 at 17:03 Initial Consult Date 08/20/17 Type of Consultation: NEPHROLOGY Referring Provider: HUSSEIN ROSE Exam/Review of Systems Vital Signs Vitals Vital Signs Date Time Temp Pulse Resp B/P Pulse Ox O2 Delivery O2 Flow Rate FiO2 09/10/17 16:12 Mechanical Ventilator 09/10/17 16:06 77 09/10/17 15:48 99.1 18 154/72 95 09/10/17 13:45 30 Intake and Output 09/09/17 09/09/17 09/10/17 15:00 23:00 07:00 Intake Total 40 ml 640 ml Balance 40 ml 640 ml Results Result Diagram: 09/10/17 0550 09/10/17 0550 Results 24 hrs Laboratory Tests Test 09/09/17 21:55 09/10/17 01:32 09/10/17 05:11 09/10/17 05:50 Bedside Glucose 129 132 115 White Blood Count 6.0 Red Blood Count 3.36 L Hemoglobin 9.4 L Hematocrit 30.3 L Mean Corpuscular Volume 90.2 Mean Corpuscular Hemoglobin 28.0 L Mean Corpuscular Hemoglobin Concent 31.0 L Red Cell Distribution Width 14.6 H Platelet Count 253 Mean Platelet Volume 10.6 H Neutrophils % 61.6 Lymphocytes % 25.5 Monocytes % 6.5 Eosinophils % 5.4 Basophils % 0.8 Nucleated Red Blood Cells % 0.0 Neutrophils # 3.7 Lymphocytes # 1.5 Monocytes # 0.4 Eosinophils # 0.3 Basophils # 0.1 Nucleated Red Blood Cells # 0.0 Sodium Level 137 Potassium Level 4.9 Chloride Level 101 Carbon Dioxide Level 27 Anion Gap 14 Blood Urea Nitrogen 59 H Creatinine 4.60 H Glucose Level 118 Calcium Level 8.1 L Test 09/10/17 09:12 09/10/17 12:29 Bedside Glucose 133 127 Medications Medications Current Medications Diagnostic Test (Pha) (Accu-Chek) 1 ea 02 XX Last administered on 08/31/17 01 :33; Admin Dose 1 EA; Start 08/23/17 at 02:00 Miscellaneous Information 1 ea NOTE XX ; Start 08/22/17 at 13:30 Glucose (Glutose) 15 gm Q15M PRN PO DECREASED GLUCOSE; Start 08/22/17 at 13:30 Glucose (Glutose) 22.5 gm Q15M PRN PO DECREASED GLUCOSE; Start 08/22/17 at 13: 30 Dextrose (D50w Syringe) 25 ml Q15M PRN IV DECREASED GLUCOSE Last administered on 09/07/17 17:50; Admin Dose 25 ML; Start 08/22/17 at 13:30 Dextrose (D50w Syringe) 50 ml Q15M PRN IV DECREASED GLUCOSE Last administered on 09/07/17 21:54; Admin Dose 50 ML; Start 08/22/17 at 13:30 Glucagon (Glucagen) 1 mg Q15M PRN IM DECREASED GLUCOSE; Start 08/22/17 at 13:30 Glucose (Glutose) 15 gm Q15M PRN BUCCAL DECREASED GLUCOSE; Start 08/22/17 at 13 :30 Sodium Hypochlorite (Dakin'S (Dilute 1/40%)) 1 applic BID IRR Last administered on 09/10/17 16:35; Admin Dose 1 APPLIC; Start 08/23/17 at 09:00 Acetaminophen (Tylenol Tab) 500 mg Q4H PRN PO PAIN AND OR ELEVATED TEMP Last administered on 08/27/17 01:27; Admin Dose 500 MG; Start 08/25/17 at 12:00 Morphine Sulfate (morphine) 2 mg Q4H PRN IV PAIN LEVEL 4-6 Last administered on 09/03/17 20:38; Admin Dose 2 MG; Start 08/25/17 at 12:00 Lansoprazole (Prevacid) 30 mg DAILY@06 GTB Last administered on 09/10/17 05: 14; Admin Dose 30 MG; Start 08/29/17 at 06:00 Insulin Aspart (Novolog Insulin Pen) (Adult SC Insulin - Mild Algorithm)... Q4 SC Last administered on 09/05/17 17:51; Admin Dose 1 UNIT; Start 08/31/17 at 16:00 Lisinopril (Zestril) 20 mg BID PO Last administered on 09/10/17 09:15; Admin Dose 20 MG; Start 09/02/17 at 21:00 Clonidine (Catapres) 0.1 mg Q6H PRN GTB ELEVATED SYSTOLIC BP Last administered on 09/06/17 05:33; Admin Dose 0.1 MG; Start 09/02/17 at 21:30 Epoetin Bo (Epogen (Esrd)) 2,000 units MoWeFr@17 SC Last administered on 17:00; Admin Dose 2,000 UNITS; Start 09/05/17 at 17:00 Epoetin Bo (Epogen (Esrd)) 3,000 units MoWeFr@17 SC Last administered on 17:00; Admin Dose 3,000 UNITS; Start 09/05/17 at 17:00 Insulin Glargine (Lantus) 10 unit DAILY SC Last administered on 09/10/17 09: 45; Admin Dose 10 UNIT; Start 09/08/17 at 09:00 Metoprolol Tartrate (Lopressor) 75 mg BID GTB ; Start 09/10/17 at 21:00 Collagenase (Santyl) 1 applic DAILY TOP ; Start 09/11/17 at 09:00 LUCILLE CABALLERO MD Sep 10, 2017 17:53
--- NOTE | 2017-09-10 18:12 | CONS ---
Date/Time of Note Date/Time of Note DATE: 09/10/17 TIME: 18:10 Consult Date/Type/Reason Admit Date/Time Aug 20, 2017 at 17:03 Initial Consult Date 08/20/17 Type of Consultation: Pulm Ordering Provider: HUSSEIN ROSE Subjective No events. Objective Vital Signs Date Time Temp Pulse Resp B/P Pulse Ox O2 Delivery O2 Flow Rate FiO2 09/10/17 17:15 82 24 97 30 09/10/17 16:12 Mechanical Ventilator 09/10/17 15:48 99.1 154/72 Intake and Output 09/09/17 09/09/17 09/10/17 15:00 23:00 07:00 Intake Total 40 ml 640 ml Balance 40 ml 640 ml Exam HEENT: Neck supple; no JVD; no LAD; + trach with ++ secretions CVS: RRR, S1 and S2 CHEST: Coarse rhonchi B/L ABD: Soft, NT, + BS EXT: No c/c/ + edema Results/Medications Result Diagram: 09/10/17 0550 09/10/17 0550 Results 24 hrs Laboratory Tests Test 09/09/17 21:55 09/10/17 01:32 09/10/17 05:11 09/10/17 05:50 Bedside Glucose 129 132 115 White Blood Count 6.0 Red Blood Count 3.36 L Hemoglobin 9.4 L Hematocrit 30.3 L Mean Corpuscular Volume 90.2 Mean Corpuscular Hemoglobin 28.0 L Mean Corpuscular Hemoglobin Concent 31.0 L Red Cell Distribution Width 14.6 H Platelet Count 253 Mean Platelet Volume 10.6 H Neutrophils % 61.6 Lymphocytes % 25.5 Monocytes % 6.5 Eosinophils % 5.4 Basophils % 0.8 Nucleated Red Blood Cells % 0.0 Neutrophils # 3.7 Lymphocytes # 1.5 Monocytes # 0.4 Eosinophils # 0.3 Basophils # 0.1 Nucleated Red Blood Cells # 0.0 Sodium Level 137 Potassium Level 4.9 Chloride Level 101 Carbon Dioxide Level 27 Anion Gap 14 Blood Urea Nitrogen 59 H Creatinine 4.60 H Glucose Level 118 Calcium Level 8.1 L Test 09/10/17 09:12 09/10/17 12:29 09/10/17 17:58 Bedside Glucose 133 127 98 Medications Current Medications Diagnostic Test (Pha) (Accu-Chek) 1 ea 02 XX Last administered on 08/31/17 01 :33; Admin Dose 1 EA; Start 08/23/17 at 02:00 Miscellaneous Information 1 ea NOTE XX ; Start 08/22/17 at 13:30 Glucose (Glutose) 15 gm Q15M PRN PO DECREASED GLUCOSE; Start 08/22/17 at 13:30 Glucose (Glutose) 22.5 gm Q15M PRN PO DECREASED GLUCOSE; Start 08/22/17 at 13: 30 Dextrose (D50w Syringe) 25 ml Q15M PRN IV DECREASED GLUCOSE Last administered on 09/07/17 17:50; Admin Dose 25 ML; Start 08/22/17 at 13:30 Dextrose (D50w Syringe) 50 ml Q15M PRN IV DECREASED GLUCOSE Last administered on 09/07/17 21:54; Admin Dose 50 ML; Start 08/22/17 at 13:30 Glucagon (Glucagen) 1 mg Q15M PRN IM DECREASED GLUCOSE; Start 08/22/17 at 13:30 Glucose (Glutose) 15 gm Q15M PRN BUCCAL DECREASED GLUCOSE; Start 08/22/17 at 13 :30 Sodium Hypochlorite (Dakin'S (Dilute 1/40%)) 1 applic BID IRR Last administered on 09/10/17 16:35; Admin Dose 1 APPLIC; Start 08/23/17 at 09:00 Acetaminophen (Tylenol Tab) 500 mg Q4H PRN PO PAIN AND OR ELEVATED TEMP Last administered on 08/27/17 01:27; Admin Dose 500 MG; Start 08/25/17 at 12:00 Morphine Sulfate (morphine) 2 mg Q4H PRN IV PAIN LEVEL 4-6 Last administered on 09/03/17 20:38; Admin Dose 2 MG; Start 08/25/17 at 12:00 Lansoprazole (Prevacid) 30 mg DAILY@06 GTB Last administered on 09/10/17 05: 14; Admin Dose 30 MG; Start 08/29/17 at 06:00 Insulin Aspart (Novolog Insulin Pen) (Adult SC Insulin - Mild Algorithm)... Q4 SC Last administered on 09/05/17 17:51; Admin Dose 1 UNIT; Start 08/31/17 at 16:00 Lisinopril (Zestril) 20 mg BID PO Last administered on 09/10/17 09:15; Admin Dose 20 MG; Start 09/02/17 at 21:00 Clonidine (Catapres) 0.1 mg Q6H PRN GTB ELEVATED SYSTOLIC BP Last administered on 09/06/17 05:33; Admin Dose 0.1 MG; Start 09/02/17 at 21:30 Epoetin Bo (Epogen (Esrd)) 2,000 units MoWeFr@17 SC Last administered on 17:00; Admin Dose 2,000 UNITS; Start 09/05/17 at 17:00 Epoetin Bo (Epogen (Esrd)) 3,000 units MoWeFr@17 SC Last administered on 17:00; Admin Dose 3,000 UNITS; Start 09/05/17 at 17:00 Insulin Glargine (Lantus) 10 unit DAILY SC Last administered on 09/10/17 09: 45; Admin Dose 10 UNIT; Start 09/08/17 at 09:00 Metoprolol Tartrate (Lopressor) 75 mg BID GTB ; Start 09/10/17 at 21:00 Collagenase (Santyl) 1 applic DAILY TOP ; Start 09/11/17 at 09:00 Assessment/Plan Chief Complaint/Hosp Course Briefly, this is an 81-year-old male with a history of chronic resp failure s/p trach, HTN, CHF, CVA, CKD, SNF resident who presents to the emergency room after being sent in by his primary care physician for evaluation of his BUN and creatinine. In the ED, he was noted to be more hypoxemic than baseline with severe renal failure, seen by Renal. Problems: Additional Assessment/Plan IMP: 1. AMS 2. s/p Hypoxemic Resp Failure/LIBERTAD/Trach 3. Acute on CKD 4. Demand ischemia 5. CHF 6. Anemia RECS: 1. Vent support 2. BD's 3. CPT GLO COLEY MD Sep 10, 2017 18:11
[2017-09-11] VITALS (30 sets, daily range): BP systolic 130–165; BP diastolic 60–77; PULSE 65–75; RESP 17–24
[2017-09-11] MEDS: INSULIN ASPART [NOVOLOG] 3 ML PEN SC SCH ×6 (01:00→21:00)
[2017-09-11] MEDS: ACCU-CHEK XX SCH (01:29)
[2017-09-11] MEDS: DEXTROSE 50% 50 ML SYRINGE IV PRN ×2 (01:45→22:08)
[2017-09-11] MEDS: LANSOPRAZOLE 30 MG CAP GTB SCH (05:02)
[2017-09-11] MEDS: COLLAGENASE 30 GM TUBE TOP SCH (09:00)
[2017-09-11] MEDS: SODIUM HYPOCHLORITE 1/40% 1L IRRIG IRR SCH ×2 (09:00→21:47)
[2017-09-11] MEDS: METOPROLOL 50 MG TAB GTB SCH ×2 (09:31→21:46)
[2017-09-11] MEDS: LISINOPRIL 20 MG TAB PO SCH ×2 (09:31→21:46)
[2017-09-11] MEDS: INSULIN GLARGINE [LANtus] 3 ML PEN SC SCH (11:10)
--- NOTE | 2017-09-11 11:33 | CONS ---
Date/Time of Note Date/Time of Note DATE: 09/11/17 TIME: 11:30 Assessment/Plan Assessment/Plan Additional Assessment/Plan 1. Sepsis due to PNA 2. Acute on chronic renal failure - with severe metabolic acidosis and acute uremic encephalopathy- pt is anuric, started on HD during this admission 3. AMS due to acute uremic encephalopathy + acute metabolic encephalopathy 3. H/o recent admission to [place] for renal failure 4. H/o chronic resp failure s/p tracheostomy 5. HTN 6. H/o CVA with residual weakness 7.. IDDM 8. Anemia,severe, anemia of chronic disease, 9. RLE swelling Plan: started on HD during this admission,HDtomorrow after permacath placement , pt was scheduled fo rpermacath but not able to get cosent from his son, awaiting consent from son for Permcath, currently has RLE Calos catheter US RLE negative for DVT Hepatitis panel, HIV negative pt will be skilled nursing HD patient Out[facility] HD placement is [facility] IV abx as per ID will follow up Consultation Date/Type/Reason Admit Date/Time Aug 20, 2017 at 17:03 Initial Consult Date 08/20/17 Type of Consultation: NEPHROLOGY Referring Provider: HUSSEIN ROSE 24 HR Interval Summary Free Text/Dictation Will plan for HD , awaiting consent from Son for permacath Exam/Review of Systems Vital Signs Vitals Vital Signs Date Time Temp Pulse Resp B/P Pulse Ox O2 Delivery O2 Flow Rate FiO2 09/11/17 09:20 72 24 97 30 09/11/17 08:08 98.8 154/72 09/10/17 16:12 Mechanical Ventilator Intake and Output 09/10/17 09/10/17 09/11/17 15:00 23:00 07:00 Intake Total 680 ml 640 ml Balance 680 ml 640 ml Exam Constitutional: non-verbal ENMT: other (+ tracheostomy on ventilator ) Respiratory: congested cough, crackles/rales, diminished breath sounds Cardiovascular: S3, regular rate and rhythm Gastrointestinal: non-tender, soft Musculoskeletal: other (2+ pittign edema ), swelling Neurological: other (non verbal , pt is s/p tracheostomy on ventilator ) Results Result Diagram: 09/11/17 0659 09/11/17 0700 Results 24 hrs Laboratory Tests Test 09/10/17 12:29 09/10/17 17:58 09/10/17 21:54 09/11/17 01:27 Bedside Glucose 127 98 76 56 L Test 09/11/17 01:48 09/11/17 01:55 09/11/17 04:59 09/11/17 06:02 Bedside Glucose 114 109 96 Lab Scanned Report BLOOD TRANSFUSION Test 09/11/17 06:59 09/11/17 07:00 09/11/17 09:27 White Blood Count 5.3 Red Blood Count 2.88 L Hemoglobin 8.1 L Hematocrit 25.9 L Mean Corpuscular Volume 89.9 Mean Corpuscular Hemoglobin 28.1 L Mean Corpuscular Hemoglobin Concent 31.3 L Red Cell Distribution Width 14.6 H Platelet Count 233 Mean Platelet Volume 10.6 H Neutrophils % 57.8 Lymphocytes % 29.2 Monocytes % 6.6 Eosinophils % 5.1 Basophils % 1.1 Nucleated Red Blood Cells % 0.0 Neutrophils # 3.0 Lymphocytes # 1.5 Monocytes # 0.4 Eosinophils # 0.3 Basophils # 0.1 Nucleated Red Blood Cells # 0.0 Sodium Level 136 Potassium Level 4.8 Chloride Level 101 Carbon Dioxide Level 28 Anion Gap 12 Blood Urea Nitrogen 63 H Creatinine 5.11 H Glucose Level 88 Calcium Level 7.8 L Bedside Glucose 108 Medications Medications Current Medications Diagnostic Test (Pha) (Accu-Chek) 1 ea 02 XX Last administered on 08/31/17 01 :33; Admin Dose 1 EA; Start 08/23/17 at 02:00 Miscellaneous Information 1 ea NOTE XX ; Start 08/22/17 at 13:30 Glucose (Glutose) 15 gm Q15M PRN PO DECREASED GLUCOSE; Start 08/22/17 at 13:30 Glucose (Glutose) 22.5 gm Q15M PRN PO DECREASED GLUCOSE; Start 08/22/17 at 13: 30 Dextrose (D50w Syringe) 25 ml Q15M PRN IV DECREASED GLUCOSE Last administered on 09/11/17 01:45; Admin Dose 25 ML; Start 08/22/17 at 13:30 Dextrose (D50w Syringe) 50 ml Q15M PRN IV DECREASED GLUCOSE Last administered on 09/07/17 21:54; Admin Dose 50 ML; Start 08/22/17 at 13:30 Glucagon (Glucagen) 1 mg Q15M PRN IM DECREASED GLUCOSE; Start 08/22/17 at 13:30 Glucose (Glutose) 15 gm Q15M PRN BUCCAL DECREASED GLUCOSE; Start 08/22/17 at 13 :30 Sodium Hypochlorite (Dakin'S (Dilute 1/40%)) 1 applic BID IRR Last administered on 09/10/17 22:05; Admin Dose 1 APPLIC; Start 08/23/17 at 09:00 Acetaminophen (Tylenol Tab) 500 mg Q4H PRN PO PAIN AND OR ELEVATED TEMP Last administered on 08/27/17 01:27; Admin Dose 500 MG; Start 08/25/17 at 12:00 Morphine Sulfate (morphine) 2 mg Q4H PRN IV PAIN LEVEL 4-6 Last administered on 09/03/17 20:38; Admin Dose 2 MG; Start 08/25/17 at 12:00 Lansoprazole (Prevacid) 30 mg DAILY@06 GTB Last administered on 09/11/17 05: 02; Admin Dose 30 MG; Start 08/29/17 at 06:00 Insulin Aspart (Novolog Insulin Pen) (Adult SC Insulin - Mild Algorithm)... Q4 SC Last administered on 09/05/17 17:51; Admin Dose 1 UNIT; Start 08/31/17 at 16:00 Lisinopril (Zestril) 20 mg BID PO Last administered on 09/11/17 09:31; Admin Dose 20 MG; Start 09/02/17 at 21:00 Clonidine (Catapres) 0.1 mg Q6H PRN GTB ELEVATED SYSTOLIC BP Last administered on 09/06/17 05:33; Admin Dose 0.1 MG; Start 09/02/17 at 21:30 Epoetin Bo (Epogen (Esrd)) 2,000 units MoWeFr@17 SC Last administered on 17:00; Admin Dose 2,000 UNITS; Start 09/05/17 at 17:00 Epoetin Bo (Epogen (Esrd)) 3,000 units MoWeFr@17 SC Last administered on 17:00; Admin Dose 3,000 UNITS; Start 09/05/17 at 17:00 Insulin Glargine (Lantus) 10 unit DAILY SC Last administered on 09/11/17 11: 10; Admin Dose 10 UNIT; Start 09/08/17 at 09:00 Metoprolol Tartrate (Lopressor) 75 mg BID GTB Last administered on 09/11/17 09:31; Admin Dose 75 MG; Start 09/10/17 at 21:00 Collagenase (Santyl) 1 applic DAILY TOP ; Start 09/11/17 at 09:00 LUCILLE CABALLERO MD Sep 11, 2017 11:33
--- NOTE | 2017-09-11 13:43 | CONS ---
Date/Time of Note Date/Time of Note DATE: 09/11/17 TIME: 13:41 Assessment/Plan Assessment/Plan Chief Complaint/Hosp Course IMPRESSION: 1. Positive troponin-in the setting of renal failure-No sig uptrend 2. Abnormal electrocardiogram, nonspecific ST-T abnormalities. 3. Hypertension-currently elevated 4. Respiratory failure, chronic. 5. Renal failure, acute on chronic. 6. Dysphagia, status post G-tube. 7. Anemia-ongoing 8. Thrombocytopenia-Slowly improving 9. Encephalopathy. 10. History of CVA. 11. Diabetes mellitus. 12. Hypokalemia 14. Cardiomyopathy-depressed EF 40% Recc: -Tele -Continue BB/ACEI with further uptitration to improve BP control as necessary -follow volume status with HD for volume removal -Continue asa -Continue abx's and f/u cx data Problems: Consultation Date/Type/Reason Admit Date/Time Aug 20, 2017 at 17:03 Initial Consult Date 08/20/17 Type of Consultation: cardiology Reason for Consultation positive troponin Referring Provider: HUSSEIN ROSE Exam/Review of Systems Vital Signs Vitals Vital Signs Date Time Temp Pulse Resp B/P Pulse Ox O2 Delivery O2 Flow Rate FiO2 09/11/17 12:10 68 09/11/17 12:10 97.7 18 148/77 98 09/11/17 11:26 Mechanical Ventilator 09/11/17 11:20 30 Intake and Output 09/10/17 09/10/17 09/11/17 15:00 23:00 07:00 Intake Total 680 ml 640 ml Balance 680 ml 640 ml Exam Review of Systems: CONSTITUTIONAL: No fevers, chills. PULMONARY: No sob CARDIOVASCULAR: No chest pain/palpitations GASTROINTESTINAL: No nausea/vomiting. GENITOURINARY: No hematuria/dysuria. MUSCULOSKELETAL: No myagias/arthalgias. PSYCHIATRIC: The patient denies depression. NEUROLOGIC: No weakness Constitutional: other (encephalopathic) Psych: no complaints Neck: other (trached) Respiratory: clear to auscultation Cardiovascular: regular rate and rhythm Gastrointestinal: non-tender, soft Musculoskeletal: muscle tone (normal) Extremities: edema Neurological: other (No focal deficits) Results Result Diagram: 09/11/17 0659 09/11/17 0700 Results 24 hrs Laboratory Tests Test 09/10/17 17:58 09/10/17 21:54 09/11/17 01:27 09/11/17 01:48 Bedside Glucose 98 76 56 L 114 Test 09/11/17 01:55 09/11/17 04:59 09/11/17 06:02 09/11/17 06:59 Bedside Glucose 109 96 Lab Scanned Report BLOOD TRANSFUSION White Blood Count 5.3 Red Blood Count 2.88 L Hemoglobin 8.1 L Hematocrit 25.9 L Mean Corpuscular Volume 89.9 Mean Corpuscular Hemoglobin 28.1 L Mean Corpuscular Hemoglobin Concent 31.3 L Red Cell Distribution Width 14.6 H Platelet Count 233 Mean Platelet Volume 10.6 H Neutrophils % 57.8 Lymphocytes % 29.2 Monocytes % 6.6 Eosinophils % 5.1 Basophils % 1.1 Nucleated Red Blood Cells % 0.0 Neutrophils # 3.0 Lymphocytes # 1.5 Monocytes # 0.4 Eosinophils # 0.3 Basophils # 0.1 Nucleated Red Blood Cells # 0.0 Test 09/11/17 07:00 09/11/17 09:27 09/11/17 11:57 Sodium Level 136 Potassium Level 4.8 Chloride Level 101 Carbon Dioxide Level 28 Anion Gap 12 Blood Urea Nitrogen 63 H Creatinine 5.11 H Glucose Level 88 Calcium Level 7.8 L Bedside Glucose 108 126 Medications Medications Current Medications Diagnostic Test (Pha) (Accu-Chek) 1 ea 02 XX Last administered on 08/31/17 01 :33; Admin Dose 1 EA; Start 08/23/17 at 02:00 Miscellaneous Information 1 ea NOTE XX ; Start 08/22/17 at 13:30 Glucose (Glutose) 15 gm Q15M PRN PO DECREASED GLUCOSE; Start 08/22/17 at 13:30 Glucose (Glutose) 22.5 gm Q15M PRN PO DECREASED GLUCOSE; Start 08/22/17 at 13: 30 Dextrose (D50w Syringe) 25 ml Q15M PRN IV DECREASED GLUCOSE Last administered on 09/11/17 01:45; Admin Dose 25 ML; Start 08/22/17 at 13:30 Dextrose (D50w Syringe) 50 ml Q15M PRN IV DECREASED GLUCOSE Last administered on 09/07/17 21:54; Admin Dose 50 ML; Start 08/22/17 at 13:30 Glucagon (Glucagen) 1 mg Q15M PRN IM DECREASED GLUCOSE; Start 08/22/17 at 13:30 Glucose (Glutose) 15 gm Q15M PRN BUCCAL DECREASED GLUCOSE; Start 08/22/17 at 13 :30 Sodium Hypochlorite (Dakin'S (Dilute 1/40%)) 1 applic BID IRR Last administered on 09/10/17 22:05; Admin Dose 1 APPLIC; Start 08/23/17 at 09:00 Acetaminophen (Tylenol Tab) 500 mg Q4H PRN PO PAIN AND OR ELEVATED TEMP Last administered on 08/27/17 01:27; Admin Dose 500 MG; Start 08/25/17 at 12:00 Morphine Sulfate (morphine) 2 mg Q4H PRN IV PAIN LEVEL 4-6 Last administered on 09/03/17 20:38; Admin Dose 2 MG; Start 08/25/17 at 12:00 Lansoprazole (Prevacid) 30 mg DAILY@06 GTB Last administered on 09/11/17 05: 02; Admin Dose 30 MG; Start 08/29/17 at 06:00 Insulin Aspart (Novolog Insulin Pen) (Adult SC Insulin - Mild Algorithm)... Q4 SC Last administered on 09/05/17 17:51; Admin Dose 1 UNIT; Start 08/31/17 at 16:00 Lisinopril (Zestril) 20 mg BID PO Last administered on 09/11/17 09:31; Admin Dose 20 MG; Start 09/02/17 at 21:00 Clonidine (Catapres) 0.1 mg Q6H PRN GTB ELEVATED SYSTOLIC BP Last administered on 09/06/17 05:33; Admin Dose 0.1 MG; Start 09/02/17 at 21:30 Epoetin Bo (Epogen (Esrd)) 2,000 units MoWeFr@17 SC Last administered on 17:00; Admin Dose 2,000 UNITS; Start 09/05/17 at 17:00 Epoetin Bo (Epogen (Esrd)) 3,000 units MoWeFr@17 SC Last administered on 17:00; Admin Dose 3,000 UNITS; Start 09/05/17 at 17:00 Insulin Glargine (Lantus) 10 unit DAILY SC Last administered on 09/11/17 11: 10; Admin Dose 10 UNIT; Start 09/08/17 at 09:00 Metoprolol Tartrate (Lopressor) 75 mg BID GTB Last administered on 09/11/17t 09:31; Admin Dose 75 MG; Start 09/10/17 at 21:00 Collagenase (Santyl) 1 applic DAILY TOP ; Start 09/11/17 at 09:00 BRENTON NORTON Sep 11, 2017 13:43
--- NOTE | 2017-09-11 16:02 | PN ---
Date/Time of Note Date/Time of Note DATE: 09/11/17 TIME: 15:41 Assessment/Plan VTE Prophylaxis VTE Prophylaxis Intervention: other Lines/Catheters IV Catheter Type (from Nrs): PICC Line Central line still needed: Yes Urinary Cath still in place: No Assessment/Plan Assessment/Plan -Sacral wound -possible infected- ID follows - will get surgery consult- Dr Worthy's [employer]- Emma notified -Acute on chronic CKD. Continue hemodialysis. Dr. Nieto is following in nephrology consultation. -Ventilator dependent respiratory failure with tracheostomy. -Pulmonary edema versus multifocal pneumonia, status post treatment with antibiotics. Dr Hill is following in infection disease consultation -Positive troponin in the setting of renal disease, Dr. Zuniga is following in cardiology consultation -Acute metabolic encephalopathy -Anemia, s/p blood transfusion, continue Epogen, continue to monitor hemoglobin and hematocrit -DM, continue Lantus, NovoLog per sliding scale. -Dysphagia with PEG Further recommendations based on clinical course. Plan of care discussed with Dr. Chávez. Subjective 24 Hr Interval Summary Free Text/Dictation afebrile, No acute events overnight, pending permacath placement upon anesthesia consent. Patient's son signed consent for permacath placement however anesthesia and nursing has difficulty reaching patient 's son to obtain anesthesia consent. - Will be NPO after MN- for possible Permacath placement. 2 doctors signing the consent for Permacath as no contact with son so far - sacral decub- possible infected- ID follows, will get surgery consult- Dr Worthy's [employer]- Emma notified -dw staff Exam/Review of Systems Vital Signs Vitals Vital Signs Date Time Temp Pulse Resp B/P Pulse Ox O2 Delivery O2 Flow Rate FiO2 09/11/17 13:15 68 24 98 30 09/11/17 12:10 97.7 148/77 09/11/17 11:26 Mechanical Ventilator Intake and Output 09/10/17 09/10/17 09/11/17 15:00 23:00 07:00 Intake Total 680 ml 640 ml Balance 680 ml 640 ml Exam Constitutional: non-verbal Respiratory: diminished breath sounds, other (trach intact) Cardiovascular: other (s1s2) Musculoskeletal: muscle weakness Extremities: edema Neurological: lethargic Results Result Diagram: 09/11/17 0659 09/11/17 0700 Results 24 hrs Laboratory Tests Test 09/10/17 17:58 09/10/17 21:54 09/11/17 01:27 09/11/17 01:48 Bedside Glucose 98 76 56 L 114 Test 09/11/17 01:55 09/11/17 04:59 09/11/17 06:02 09/11/17 06:59 Bedside Glucose 109 96 Lab Scanned Report BLOOD TRANSFUSION White Blood Count 5.3 Red Blood Count 2.88 L Hemoglobin 8.1 L Hematocrit 25.9 L Mean Corpuscular Volume 89.9 Mean Corpuscular Hemoglobin 28.1 L Mean Corpuscular Hemoglobin Concent 31.3 L Red Cell Distribution Width 14.6 H Platelet Count 233 Mean Platelet Volume 10.6 H Neutrophils % 57.8 Lymphocytes % 29.2 Monocytes % 6.6 Eosinophils % 5.1 Basophils % 1.1 Nucleated Red Blood Cells % 0.0 Neutrophils # 3.0 Lymphocytes # 1.5 Monocytes # 0.4 Eosinophils # 0.3 Basophils # 0.1 Nucleated Red Blood Cells # 0.0 Test 09/11/17 07:00 09/11/17 09:27 09/11/17 11:57 Sodium Level 136 Potassium Level 4.8 Chloride Level 101 Carbon Dioxide Level 28 Anion Gap 12 Blood Urea Nitrogen 63 H Creatinine 5.11 H Glucose Level 88 Calcium Level 7.8 L Bedside Glucose 108 126 Medications Medications Current Medications Diagnostic Test (Pha) (Accu-Chek) 1 ea 02 XX Last administered on 08/31/17 01 :33; Admin Dose 1 EA; Start 08/23/17 at 02:00 Miscellaneous Information 1 ea NOTE XX ; Start 08/22/17 at 13:30 Glucose (Glutose) 15 gm Q15M PRN PO DECREASED GLUCOSE; Start 08/22/17 at 13:30 Glucose (Glutose) 22.5 gm Q15M PRN PO DECREASED GLUCOSE; Start 08/22/17 at 13: 30 Dextrose (D50w Syringe) 25 ml Q15M PRN IV DECREASED GLUCOSE Last administered on 09/11/17 01:45; Admin Dose 25 ML; Start 08/22/17 at 13:30 Dextrose (D50w Syringe) 50 ml Q15M PRN IV DECREASED GLUCOSE Last administered on 09/07/17 21:54; Admin Dose 50 ML; Start 08/22/17 at 13:30 Glucagon (Glucagen) 1 mg Q15M PRN IM DECREASED GLUCOSE; Start 08/22/17 at 13:30 Glucose (Glutose) 15 gm Q15M PRN BUCCAL DECREASED GLUCOSE; Start 08/22/17 at 13 :30 Sodium Hypochlorite (Dakin'S (Dilute 1/40%)) 1 applic BID IRR Last administered on 09/10/17 22:05; Admin Dose 1 APPLIC; Start 08/23/17 at 09:00 Acetaminophen (Tylenol Tab) 500 mg Q4H PRN PO PAIN AND OR ELEVATED TEMP Last administered on 08/27/17 01:27; Admin Dose 500 MG; Start 08/25/17 at 12:00 Morphine Sulfate (morphine) 2 mg Q4H PRN IV PAIN LEVEL 4-6 Last administered on 09/03/17 20:38; Admin Dose 2 MG; Start 08/25/17 at 12:00 Lansoprazole (Prevacid) 30 mg DAILY@06 GTB Last administered on 09/11/17 05: 02; Admin Dose 30 MG; Start 08/29/17 at 06:00 Insulin Aspart (Novolog Insulin Pen) (Adult SC Insulin - Mild Algorithm)... Q4 SC Last administered on 09/05/17 17:51; Admin Dose 1 UNIT; Start 08/31/17 at 16:00 Lisinopril (Zestril) 20 mg BID PO Last administered on 09/11/17 09:31; Admin Dose 20 MG; Start 09/02/17 at 21:00 Clonidine (Catapres) 0.1 mg Q6H PRN GTB ELEVATED SYSTOLIC BP Last administered on 09/06/17 05:33; Admin Dose 0.1 MG; Start 09/02/17 at 21:30 Epoetin Bo (Epogen (Esrd)) 2,000 units MoWeFr@17 SC Last administered on 17:00; Admin Dose 2,000 UNITS; Start 09/05/17 at 17:00 Epoetin Bo (Epogen (Esrd)) 3,000 units MoWeFr@17 SC Last administered on 17:00; Admin Dose 3,000 UNITS; Start 09/05/17 at 17:00 Insulin Glargine (Lantus) 10 unit DAILY SC Last administered on 09/11/17 11: 10; Admin Dose 10 UNIT; Start 09/08/17 at 09:00 Metoprolol Tartrate (Lopressor) 75 mg BID GTB Last administered on 09/11/17 09:31; Admin Dose 75 MG; Start 09/10/17 at 21:00 Collagenase (Santyl) 1 applic DAILY TOP ; Start 09/11/17 at 09:00 LEILA GARCIA Sep 11, 2017 15:56
--- NOTE | 2017-09-11 16:48 | CONS ---
Date/Time of Note Date/Time of Note DATE: 09/11/17 TIME: 16:47 Consult Date/Type/Reason Admit Date/Time Aug 20, 2017 at 17:03 Initial Consult Date 08/20/17 Type of Consultation: Pulm Ordering Provider: HUSSEIN ROSE Subjective No events on MV. Objective Vital Signs Date Time Temp Pulse Resp B/P Pulse Ox O2 Delivery O2 Flow Rate FiO2 09/11/17 16:17 67 09/11/17 15:54 Mechanical Ventilator 09/11/17 15:38 97.5 19 165/72 98 09/11/17 15:10 30 Intake and Output 09/10/17 09/10/17 09/11/17 15:00 23:00 07:00 Intake Total 680 ml 640 ml Balance 680 ml 640 ml Exam HEENT: Neck supple; no JVD; no LAD; + trach with ++ secretions CVS: RRR, S1 and S2 CHEST: Coarse rhonchi B/L ABD: Soft, NT, + BS EXT: No c/c/ + edema Results/Medications Result Diagram: 09/11/17 0659 09/11/17 0700 Results 24 hrs Laboratory Tests Test 09/10/17 17:58 09/10/17 21:54 09/11/17 01:27 09/11/17 01:48 Bedside Glucose 98 76 56 L 114 Test 09/11/17 01:55 09/11/17 04:59 09/11/17 06:02 09/11/17 06:59 Bedside Glucose 109 96 Lab Scanned Report BLOOD TRANSFUSION White Blood Count 5.3 Red Blood Count 2.88 L Hemoglobin 8.1 L Hematocrit 25.9 L Mean Corpuscular Volume 89.9 Mean Corpuscular Hemoglobin 28.1 L Mean Corpuscular Hemoglobin Concent 31.3 L Red Cell Distribution Width 14.6 H Platelet Count 233 Mean Platelet Volume 10.6 H Neutrophils % 57.8 Lymphocytes % 29.2 Monocytes % 6.6 Eosinophils % 5.1 Basophils % 1.1 Nucleated Red Blood Cells % 0.0 Neutrophils # 3.0 Lymphocytes # 1.5 Monocytes # 0.4 Eosinophils # 0.3 Basophils # 0.1 Nucleated Red Blood Cells # 0.0 Test 09/11/17 07:00 09/11/17 09:27 09/11/17 11:57 09/11/17 16:39 Sodium Level 136 Potassium Level 4.8 Chloride Level 101 Carbon Dioxide Level 28 Anion Gap 12 Blood Urea Nitrogen 63 H Creatinine 5.11 H Glucose Level 88 Calcium Level 7.8 L Bedside Glucose 108 126 77 Medications Current Medications Diagnostic Test (Pha) (Accu-Chek) 1 ea 02 XX Last administered on 08/31/17 01 :33; Admin Dose 1 EA; Start 08/23/17 at 02:00 Miscellaneous Information 1 ea NOTE XX ; Start 08/22/17 at 13:30 Glucose (Glutose) 15 gm Q15M PRN PO DECREASED GLUCOSE; Start 08/22/17 at 13:30 Glucose (Glutose) 22.5 gm Q15M PRN PO DECREASED GLUCOSE; Start 08/22/17 at 13: 30 Dextrose (D50w Syringe) 25 ml Q15M PRN IV DECREASED GLUCOSE Last administered on 09/11/17 01:45; Admin Dose 25 ML; Start 08/22/17 at 13:30 Dextrose (D50w Syringe) 50 ml Q15M PRN IV DECREASED GLUCOSE Last administered on 09/07/17 21:54; Admin Dose 50 ML; Start 08/22/17 at 13:30 Glucagon (Glucagen) 1 mg Q15M PRN IM DECREASED GLUCOSE; Start 08/22/17 at 13:30 Glucose (Glutose) 15 gm Q15M PRN BUCCAL DECREASED GLUCOSE; Start 08/22/17 at 13 :30 Sodium Hypochlorite (Dakin'S (Dilute 1/40%)) 1 applic BID IRR Last administered on 09/10/17 22:05; Admin Dose 1 APPLIC; Start 08/23/17 at 09:00 Acetaminophen (Tylenol Tab) 500 mg Q4H PRN PO PAIN AND OR ELEVATED TEMP Last administered on 08/27/17 01:27; Admin Dose 500 MG; Start 08/25/17 at 12:00 Morphine Sulfate (morphine) 2 mg Q4H PRN IV PAIN LEVEL 4-6 Last administered on 09/03/17 20:38; Admin Dose 2 MG; Start 08/25/17 at 12:00 Lansoprazole (Prevacid) 30 mg DAILY@06 GTB Last administered on 09/11/17 05: 02; Admin Dose 30 MG; Start 08/29/17 at 06:00 Insulin Aspart (Novolog Insulin Pen) (Adult SC Insulin - Mild Algorithm)... Q4 SC Last administered on 09/05/17 17:51; Admin Dose 1 UNIT; Start 08/31/17 at 16:00 Lisinopril (Zestril) 20 mg BID PO Last administered on 09/11/17 09:31; Admin Dose 20 MG; Start 09/02/17 at 21:00 Clonidine (Catapres) 0.1 mg Q6H PRN GTB ELEVATED SYSTOLIC BP Last administered on 09/06/17 05:33; Admin Dose 0.1 MG; Start 09/02/17 at 21:30 Epoetin Bo (Epogen (Esrd)) 2,000 units MoWeFr@17 SC Last administered on 17:00; Admin Dose 2,000 UNITS; Start 09/05/17 at 17:00 Epoetin Bo (Epogen (Esrd)) 3,000 units MoWeFr@17 SC Last administered on 17:00; Admin Dose 3,000 UNITS; Start 09/05/17 at 17:00 Insulin Glargine (Lantus) 10 unit DAILY SC Last administered on 09/11/17 11: 10; Admin Dose 10 UNIT; Start 09/08/17 at 09:00 Metoprolol Tartrate (Lopressor) 75 mg BID GTB Last administered on 09/11/17 09:31; Admin Dose 75 MG; Start 09/10/17 at 21:00 Collagenase (Santyl) 1 applic DAILY TOP ; Start 09/11/17 at 09:00 Assessment/Plan Chief Complaint/Hosp Course Briefly, this is an 81-year-old male with a history of chronic resp failure s/p trach, HTN, CHF, CVA, CKD, SNF resident who presents to the emergency room after being sent in by his primary care physician for evaluation of his BUN and creatinine. In the ED, he was noted to be more hypoxemic than baseline with severe renal failure, seen by Renal. Problems: Additional Assessment/Plan IMP: 1. AMS 2. s/p Hypoxemic Resp Failure/s/pARDS/Trach 3. Acute on CKD 4. Demand ischemia 5. CHF 6. Anemia RECS: 1. Vent support 2. BD's 3. CPT 4. BP control GLO COLEY MD Sep 11, 2017 16:48
--- NOTE | 2017-09-11 19:42 | CONS ---
Date/Time of Note Date/Time of Note DATE: 09/11/17 TIME: 19:42 Consult Date/Type/Reason Admit Date/Time Aug 20, 2017 at 17:03 Initial Consult Date 08/20/17 Type of Consultation: ID Ordering Provider: HUSSEIN ROSE Objective Vital Signs Date Time Temp Pulse Resp B/P Pulse Ox O2 Delivery O2 Flow Rate FiO2 09/11/17 17:50 72 24 99 30 09/11/17 15:54 Mechanical Ventilator 09/11/17 15:38 97.5 165/72 Intake and Output 09/10/17 09/10/17 09/11/17 15:00 23:00 07:00 Intake Total 680 ml 640 ml Balance 680 ml 640 ml Results/Medications Result Diagram: 09/11/17 0659 09/11/17 0700 Results 24 hrs Laboratory Tests Test 09/10/17 21:54 09/11/17 01:27 09/11/17 01:48 09/11/17 01:55 Bedside Glucose 76 56 L 114 109 Test 09/11/17 04:59 09/11/17 06:02 09/11/17 06:59 09/11/17 07:00 Bedside Glucose 96 Lab Scanned Report BLOOD TRANSFUSION White Blood Count 5.3 Red Blood Count 2.88 L Hemoglobin 8.1 L Hematocrit 25.9 L Mean Corpuscular Volume 89.9 Mean Corpuscular Hemoglobin 28.1 L Mean Corpuscular Hemoglobin Concent 31.3 L Red Cell Distribution Width 14.6 H Platelet Count 233 Mean Platelet Volume 10.6 H Neutrophils % 57.8 Lymphocytes % 29.2 Monocytes % 6.6 Eosinophils % 5.1 Basophils % 1.1 Nucleated Red Blood Cells % 0.0 Neutrophils # 3.0 Lymphocytes # 1.5 Monocytes # 0.4 Eosinophils # 0.3 Basophils # 0.1 Nucleated Red Blood Cells # 0.0 Sodium Level 136 Potassium Level 4.8 Chloride Level 101 Carbon Dioxide Level 28 Anion Gap 12 Blood Urea Nitrogen 63 H Creatinine 5.11 H Glucose Level 88 Calcium Level 7.8 L Test 09/11/17 09:27 09/11/17 11:57 09/11/17 16:39 Bedside Glucose 108 126 77 Medications Current Medications Diagnostic Test (Pha) (Accu-Chek) 1 ea 02 XX Last administered on 08/31/17t 01 :33; Admin Dose 1 EA; Start 08/23/17 at 02:00 Miscellaneous Information 1 ea NOTE XX ; Start 08/22/17 at 13:30 Glucose (Glutose) 15 gm Q15M PRN PO DECREASED GLUCOSE; Start 08/22/17 at 13:30 Glucose (Glutose) 22.5 gm Q15M PRN PO DECREASED GLUCOSE; Start 08/22/17 at 13: 30 Dextrose (D50w Syringe) 25 ml Q15M PRN IV DECREASED GLUCOSE Last administered on 09/11/17 01:45; Admin Dose 25 ML; Start 08/22/17 at 13:30 Dextrose (D50w Syringe) 50 ml Q15M PRN IV DECREASED GLUCOSE Last administered on 09/07/17 21:54; Admin Dose 50 ML; Start 08/22/17 at 13:30 Glucagon (Glucagen) 1 mg Q15M PRN IM DECREASED GLUCOSE; Start 08/22/17 at 13:30 Glucose (Glutose) 15 gm Q15M PRN BUCCAL DECREASED GLUCOSE; Start 08/22/17 at 13 :30 Sodium Hypochlorite (Dakin'S (Dilute 1/40%)) 1 applic BID IRR Last administered on 09/10/17 22:05; Admin Dose 1 APPLIC; Start 08/23/17 at 09:00 Acetaminophen (Tylenol Tab) 500 mg Q4H PRN PO PAIN AND OR ELEVATED TEMP Last administered on 08/27/17 01:27; Admin Dose 500 MG; Start 08/25/17 at 12:00 Morphine Sulfate (morphine) 2 mg Q4H PRN IV PAIN LEVEL 4-6 Last administered on 09/03/17 20:38; Admin Dose 2 MG; Start 08/25/17 at 12:00 Lansoprazole (Prevacid) 30 mg DAILY@06 GTB Last administered on 09/11/17 05: 02; Admin Dose 30 MG; Start 08/29/17 at 06:00 Insulin Aspart (Novolog Insulin Pen) (Adult SC Insulin - Mild Algorithm)... Q4 SC Last administered on 09/05/17 17:51; Admin Dose 1 UNIT; Start 08/31/17 at 16:00 Lisinopril (Zestril) 20 mg BID PO Last administered on 09/11/17 09:31; Admin Dose 20 MG; Start 09/02/17 at 21:00 Clonidine (Catapres) 0.1 mg Q6H PRN GTB ELEVATED SYSTOLIC BP Last administered on 09/06/17 05:33; Admin Dose 0.1 MG; Start 09/02/17 at 21:30 Epoetin Bo (Epogen (Esrd)) 2,000 units MoWeFr@17 SC Last administered on 17:00; Admin Dose 2,000 UNITS; Start 09/05/17 at 17:00 Epoetin Bo (Epogen (Esrd)) 3,000 units MoWeFr@17 SC Last administered on 17:00; Admin Dose 3,000 UNITS; Start 09/05/17 at 17:00 Insulin Glargine (Lantus) 10 unit DAILY SC Last administered on 09/11/17 11: 10; Admin Dose 10 UNIT; Start 09/08/17 at 09:00 Metoprolol Tartrate (Lopressor) 75 mg BID GTB Last administered on 09/11/17 09:31; Admin Dose 75 MG; Start 09/10/17 at 21:00 Collagenase (Santyl) 1 applic DAILY TOP ; Start 09/11/17 at 09:00 Assessment/Plan Chief Complaint/Hosp Course SUBJECTIVE: No acute changes. The patient is lying comfortably in bed. No fevers. ANTIMICROBIALS: none INDWELLINGS: Trach, PEG, Chun, R fem Calos catheter and left upper extremity PICC line. PHYSICAL EXAMINATION: GENERAL: This is a chronically ill-appearing, elderly man in no distress. HEENT: Head atraumatic, normocephalic. Sclerae anicteric. Buccal mucosa dry. NECK: Obese. CHEST: Rise symmetrical. Breath sounds clear, diminished to bases. HEART: S1, S2. ABDOMEN: Soft. Bowel sounds present. EXTREMITIES: With trace edema. ASSESSMENT: 1. Status post septic shock. 2. Acute on chronic respiratory failure . 3. Healthcare-associated pneumonia==> completed abx. 4. Sacral decubitus. 5. 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 6. Diabetes. 7. Chronic encephalopathy. PLAN: Remains stable, off antibiotics, continue local wound care, vent per pulmonary, pending perm-cath [facility] staff Problems: BISI MARTIN NP Sep 11, 2017 19:42
[2017-09-11] MEDS ORDERED: ALTEPLASE (CATHFLO) 2 MG INJ CATHETER ONE (21:00)
[2017-09-12] VITALS (33 sets, daily range): BP systolic 135–190; BP diastolic 65–86; PULSE 68–92; RESP 18–24
[2017-09-12] MEDS: INSULIN ASPART [NOVOLOG] 3 ML PEN SC SCH ×6 (01:00→21:00)
[2017-09-12] MEDS: ACCU-CHEK XX SCH (02:00)
[2017-09-12] MEDS ORDERED: DEXTROSE 5%-0.45% NACL 1,000 ML IV ONE (03:30)
[2017-09-12] MEDS: LANSOPRAZOLE 30 MG CAP GTB SCH (07:00)
[2017-09-12] MEDS: LISINOPRIL 20 MG TAB PO SCH ×2 (09:00→20:44)
[2017-09-12] MEDS: METOPROLOL 50 MG TAB GTB SCH ×2 (09:00→20:44)
[2017-09-12] MEDS: COLLAGENASE 30 GM TUBE TOP SCH (09:00)
[2017-09-12] MEDS: INSULIN GLARGINE [LANtus] 3 ML PEN SC SCH (09:25)
[2017-09-12] MEDS: SODIUM HYPOCHLORITE 1/40% 1L IRRIG IRR SCH ×2 (12:27→20:45)
[2017-09-12] MEDS: DEXTROSE 50% 50 ML SYRINGE IV PRN ×2 (12:27→21:00)
--- NOTE | 2017-09-12 12:51 | CONS ---
Date/Time of Note Date/Time of Note DATE: 09/12/17 TIME: 12:20 Assessment/Plan Assessment/Plan Chief Complaint/Hosp Course 1. Sacral wound with mod drainage and odor: +wound cultures -Frequent turning and offloading -local care with dakins -debridement: left a message for son/decision maker; awaiting decision -low airloss mattress -optimize nutrition -vitamin c/short term zinc 2. VRDF w pna: -cont vent management -pulm toilet -abx per ID 3. Acute on chronic kidney disease: permacath placement pending today -per renal -limit nephrotoxic meds -HD per renal 4. Anemia: no acute bleed noted -monitor and transfuse prn 5. Dysphagia w tf -continue tf w aspiration precautions 6. Diabetes: with episode of hypoglycemia today -blood sugar optimization Thank you. Patient seen and examined in collaboration w Dr. Sukumar Worthy. Problems: Consultation Date/Type/Reason Admit Date/Time Aug 20, 2017 at 17:03 Date of Consultation: Sep 12, 2017 Type of Consultation: Surgical Reason for Consultation Sacral wound Referring Provider: LEILA GARCIA Hx of Present Illness Ashanti Rodriguez is an 81 yo man who was sent to [facility] with abnormal lab values. He has multiple comorbidities, most notably, vent dependent reparatory failure and renal failure currently on dialysis. He also has a chronic sacral wound. No reports of fevers, congested cough, seizures, diarrhea, excessive wound drainage. General surgery was asked to evaluate. Constitutional: requiring IVF, requiring O2, No chills, No febrile Eyes: No discharge, No redness ENT: No congestion, No pain Respiratory: No shortness of breath Cardiovascular: No chest pain, No edema Gastrointestinal: No constipation, No decreased appetite Genitourinary: No bleeding, No hematuria Musculoskeletal: restricted range of motion Skin: other (sacral wound) Neurologic: No focal-weakness, No seizure Psychological: no complaints Past Medical History congestive heart failure diabetes hypertension CVA with residual weakness Medical History: congestive heart failure, diabetes, hypertension, other (H/o CVA with residual weakness) Past Surgical History trach peg Past Surgical Hx: other (Tracheostomhy) Family History Significant Family History: no pertinent family hx Social History Alcohol Use: none Smoking Status: Unknown if ever smoked Drug Use: none Exam/Review of Systems Vital Signs Vitals Vital Signs Date Time Temp Pulse Resp B/P Pulse Ox O2 Delivery O2 Flow Rate FiO2 09/12/17 12:00 98.1 69 18 139/68 98 09/12/17 09:30 30 09/11/17 15:54 Mechanical Ventilator Intake and Output 09/11/17 09/11/17 09/12/17 15:00 23:00 07:00 Intake Total 500 ml 680 ml 450 ml Output Total 2500 ml Balance -2000 ml 680 ml 450 ml Exam Constitutional: other (somnolent, opens eyes with stimuli), No distress Psych: other (flat) Head: atraumatic, normocephalic Eyes: nl lids, nl sclera ENMT: mucosa pink and moist Neck: other (trach) Respiratory: other (vent), No congested cough, No labored breathing Cardiovascular: nl pulses, regular rate and rhythm (sr) Gastrointestinal: soft, No distended (peg) Musculoskeletal: muscle weakness (stiffness), No nl gait and stance Extremities: normal pulses Neurological: No nl speech, No nl strength Skin: other (sacrum with mod odor and drainage) Results Result Diagram: 09/12/17 0657 09/12/17 0657 Results 24 hrs Laboratory Tests Test 09/11/17 16:39 09/11/17 21:44 09/11/17 22:42 09/12/17 01:38 Bedside Glucose 77 53 L 99 81 Test 09/12/17 05:27 09/12/17 06:57 09/12/17 09:16 Bedside Glucose 86 88 White Blood Count 5.0 Red Blood Count 2.99 L Hemoglobin 8.5 L Hematocrit 27.3 L Mean Corpuscular Volume 91.3 Mean Corpuscular Hemoglobin 28.4 L Mean Corpuscular Hemoglobin Concent 31.1 L Red Cell Distribution Width 14.5 Platelet Count 208 Mean Platelet Volume 9.9 Neutrophils % 52.4 Lymphocytes % 31.6 Monocytes % 7.4 Eosinophils % 7.6 H Basophils % 0.8 Nucleated Red Blood Cells % 0.0 Neutrophils # 2.6 Lymphocytes # 1.6 Monocytes # 0.4 Eosinophils # 0.4 Basophils # 0.0 Nucleated Red Blood Cells # 0.0 Sodium Level 137 Potassium Level 4.1 Chloride Level 102 Carbon Dioxide Level 29 Anion Gap 10 Blood Urea Nitrogen 47 #H Creatinine 4.27 H Glucose Level 80 Calcium Level 8.1 L Medications Medications Current Medications Diagnostic Test (Pha) (Accu-Chek) 1 ea 02 XX Last administered on 08/31/17 01 :33; Admin Dose 1 EA; Start 08/23/17 at 02:00 Miscellaneous Information 1 ea NOTE XX ; Start 08/22/17 at 13:30 Glucose (Glutose) 15 gm Q15M PRN PO DECREASED GLUCOSE; Start 08/22/17 at 13:30 Glucose (Glutose) 22.5 gm Q15M PRN PO DECREASED GLUCOSE; Start 08/22/17 at 13: 30 Dextrose (D50w Syringe) 25 ml Q15M PRN IV DECREASED GLUCOSE Last administered on 09/11/17 22:08; Admin Dose 25 ML; Start 08/22/17 at 13:30 Dextrose (D50w Syringe) 50 ml Q15M PRN IV DECREASED GLUCOSE Last administered on 09/07/17 21:54; Admin Dose 50 ML; Start 08/22/17 at 13:30 Glucagon (Glucagen) 1 mg Q15M PRN IM DECREASED GLUCOSE; Start 08/22/17 at 13:30 Glucose (Glutose) 15 gm Q15M PRN BUCCAL DECREASED GLUCOSE; Start 08/22/17 at 13 :30 Sodium Hypochlorite (Dakin'S (Dilute 1/40%)) 1 applic BID IRR Last administered on 09/11/17 21:47; Admin Dose 1 APPLIC; Start 08/23/17 at 09:00 Acetaminophen (Tylenol Tab) 500 mg Q4H PRN PO PAIN AND OR ELEVATED TEMP Last administered on 08/27/17 01:27; Admin Dose 500 MG; Start 08/25/17 at 12:00 Morphine Sulfate (morphine) 2 mg Q4H PRN IV PAIN LEVEL 4-6 Last administered on 09/03/17 20:38; Admin Dose 2 MG; Start 08/25/17 at 12:00 Lansoprazole (Prevacid) 30 mg DAILY@06 GTB Last administered on 09/12/17 07: 00; Admin Dose 30 MG; Start 08/29/17 at 06:00 Insulin Aspart (Novolog Insulin Pen) (Adult SC Insulin - Mild Algorithm)... Q4 SC Last administered on 09/05/17 17:51; Admin Dose 1 UNIT; Start 08/31/17 at 16:00 Lisinopril (Zestril) 20 mg BID PO Last administered on 09/11/17 21:46; Admin Dose 20 MG; Start 09/02/17 at 21:00 Clonidine (Catapres) 0.1 mg Q6H PRN GTB ELEVATED SYSTOLIC BP Last administered on 09/06/17 05:33; Admin Dose 0.1 MG; Start 09/02/17 at 21:30 Epoetin Bo (Epogen (Esrd)) 2,000 units MoWeFr@17 SC Last administered on 17:00; Admin Dose 2,000 UNITS; Start 09/05/17 at 17:00 Epoetin Bo (Epogen (Esrd)) 3,000 units MoWeFr@17 SC Last administered on 17:00; Admin Dose 3,000 UNITS; Start 09/05/17 at 17:00 Insulin Glargine (Lantus) 10 unit DAILY SC Last administered on 09/12/17 09: 25; Admin Dose 10 UNIT; Start 09/08/17 at 09:00 Metoprolol Tartrate (Lopressor) 75 mg BID GTB Last administered on 09/11/17 21:46; Admin Dose 75 MG; Start 09/10/17 at 21:00 Collagenase 1 applic 1 applic DAILY TOP ; Start 09/11/17 at 09:00 Dextrose/Sodium Chloride (D5-1/2ns) 1,000 ml @ 30 mls/hr Q24H ONCE IV Last administered on 09/12/17 04:44; Admin Dose 30 MLS/HR; Start 09/12/17 at 03:30 ; Stop 09/13/17 at 03:29 KAMILLA KEATING NP Sep 12, 2017 12:30
--- NOTE | 2017-09-12 14:17 | CONS ---
Date/Time of Note Date/Time of Note DATE: 09/12/17 TIME: 14:14 Assessment/Plan Assessment/Plan Chief Complaint/Hosp Course IMPRESSION: 1. Positive troponin-in the setting of renal failure-No sig uptrend 2. Abnormal electrocardiogram, nonspecific ST-T abnormalities. 3. Hypertension-currently reasonable 4. Respiratory failure, chronic. 5. Renal failure, acute on chronic. 6. Dysphagia, status post G-tube. 7. Anemia-ongoing 8. Thrombocytopenia-improved 9. Encephalopathy. 10. History of CVA. 11. Diabetes mellitus. 12. Hypokalemia 14. Cardiomyopathy-depressed EF 40% Recc: -Tele -Continue BB/ACEI -follow volume status with HD for volume removal -For permacath today -Continue asa -Continue abx's and f/u cx data Problems: Consultation Date/Type/Reason Admit Date/Time Aug 20, 2017 at 17:03 Initial Consult Date 08/20/17 Type of Consultation: cardiology Reason for Consultation positive troponin Referring Provider: LEILA GARCIA Exam/Review of Systems Vital Signs Vitals Vital Signs Date Time Temp Pulse Resp B/P Pulse Ox O2 Delivery O2 Flow Rate FiO2 09/12/17 13:23 99 24 100 30 09/12/17 12:00 98.1 139/68 09/11/17 15:54 Mechanical Ventilator Intake and Output 09/11/17 09/11/17 09/12/17 14:59 22:59 06:59 Intake Total 500 ml 680 ml 450 ml Output Total 2500 ml Balance -2000 ml 680 ml 450 ml Exam Review of Systems: CONSTITUTIONAL: No fevers, chills. PULMONARY: No sob CARDIOVASCULAR: No chest pain/palpitations GASTROINTESTINAL: No nausea/vomiting. GENITOURINARY: No hematuria/dysuria. MUSCULOSKELETAL: No myagias/arthalgias. PSYCHIATRIC: The patient denies depression. NEUROLOGIC: encephalopathic Constitutional: other (encephalopathic) Psych: no complaints Head: normocephalic ENMT: mucosa pink and moist Neck: jvd (9 cm water), supple Respiratory: diminished breath sounds (at bases/B) Cardiovascular: regular rate and rhythm Gastrointestinal: non-tender, soft Musculoskeletal: muscle weakness (generalized) Extremities: other (contracted), pitting pedal edema (BIlateral LE) Neurological: other (Encephalopathic) Results Result Diagram: 09/12/17 0657 09/12/17 0657 Results 24 hrs Laboratory Tests Test 09/11/17 16:39 09/11/17 21:44 09/11/17 22:42 09/12/17 01:38 Bedside Glucose 77 53 L 99 81 Test 09/12/17 05:27 09/12/17 06:57 09/12/17 09:16 09/12/17 12:16 Bedside Glucose 86 88 49 *L White Blood Count 5.0 Red Blood Count 2.99 L Hemoglobin 8.5 L Hematocrit 27.3 L Mean Corpuscular Volume 91.3 Mean Corpuscular Hemoglobin 28.4 L Mean Corpuscular Hemoglobin Concent 31.1 L Red Cell Distribution Width 14.5 Platelet Count 208 Mean Platelet Volume 9.9 Neutrophils % 52.4 Lymphocytes % 31.6 Monocytes % 7.4 Eosinophils % 7.6 H Basophils % 0.8 Nucleated Red Blood Cells % 0.0 Neutrophils # 2.6 Lymphocytes # 1.6 Monocytes # 0.4 Eosinophils # 0.4 Basophils # 0.0 Nucleated Red Blood Cells # 0.0 Sodium Level 137 Potassium Level 4.1 Chloride Level 102 Carbon Dioxide Level 29 Anion Gap 10 Blood Urea Nitrogen 47 #H Creatinine 4.27 H Glucose Level 80 Calcium Level 8.1 L Test 09/12/17 13:20 Bedside Glucose 94 Medications Medications Current Medications Diagnostic Test (Pha) (Accu-Chek) 1 ea 02 XX Last administered on 08/31/17 01 :33; Admin Dose 1 EA; Start 08/23/17 at 02:00 Miscellaneous Information 1 ea NOTE XX ; Start 08/22/17 at 13:30 Glucose (Glutose) 15 gm Q15M PRN PO DECREASED GLUCOSE; Start 08/22/17 at 13:30 Glucose (Glutose) 22.5 gm Q15M PRN PO DECREASED GLUCOSE; Start 08/22/17 at 13: 30 Dextrose (D50w Syringe) 25 ml Q15M PRN IV DECREASED GLUCOSE Last administered on 09/11/17 22:08; Admin Dose 25 ML; Start 08/22/17 at 13:30 Dextrose (D50w Syringe) 50 ml Q15M PRN IV DECREASED GLUCOSE Last administered on 09/12/17 12:27; Admin Dose 50 ML; Start 08/22/17 at 13:30 Glucagon (Glucagen) 1 mg Q15M PRN IM DECREASED GLUCOSE; Start 08/22/17 at 13:30 Glucose (Glutose) 15 gm Q15M PRN BUCCAL DECREASED GLUCOSE; Start 08/22/17 at 13 :30 Sodium Hypochlorite (Dakin'S (Dilute 1/40%)) 1 applic BID IRR Last administered on 09/12/17 12:27; Admin Dose 1 APPLIC; Start 08/23/17 at 09:00 Acetaminophen (Tylenol Tab) 500 mg Q4H PRN PO PAIN AND OR ELEVATED TEMP Last administered on 08/27/17 01:27; Admin Dose 500 MG; Start 08/25/17 at 12:00 Morphine Sulfate (morphine) 2 mg Q4H PRN IV PAIN LEVEL 4-6 Last administered on 09/03/17 20:38; Admin Dose 2 MG; Start 08/25/17 at 12:00 Lansoprazole (Prevacid) 30 mg DAILY@06 GTB Last administered on 09/12/17 07: 00; Admin Dose 30 MG; Start 08/29/17 at 06:00 Insulin Aspart (Novolog Insulin Pen) (Adult SC Insulin - Mild Algorithm)... Q4 SC Last administered on 09/05/17 17:51; Admin Dose 1 UNIT; Start 08/31/17 at 16:00 Lisinopril (Zestril) 20 mg BID PO Last administered on 09/11/17 21:46; Admin Dose 20 MG; Start 09/02/17 at 21:00 Clonidine (Catapres) 0.1 mg Q6H PRN GTB ELEVATED SYSTOLIC BP Last administered on 09/06/17 05:33; Admin Dose 0.1 MG; Start 09/02/17 at 21:30 Epoetin Bo (Epogen (Esrd)) 2,000 units MoWeFr@17 SC Last administered on 17:00; Admin Dose 2,000 UNITS; Start 09/05/17 at 17:00 Epoetin Bo (Epogen (Esrd)) 3,000 units MoWeFr@17 SC Last administered on 17:00; Admin Dose 3,000 UNITS; Start 09/05/17 at 17:00 Insulin Glargine (Lantus) 10 unit DAILY SC Last administered on 10/23/17at 09: 25; Admin Dose 10 UNIT; Start 09/08/17 at 09:00 Metoprolol Tartrate (Lopressor) 75 mg BID GTB Last administered on 09/11/17 21:46; Admin Dose 75 MG; Start 09/10/17 at 21:00 Collagenase 1 applic 1 applic DAILY TOP Last administered on 09/12/17 09:00; Admin Dose 1 APPLIC; Start 09/11/17 at 09:00 Dextrose/Sodium Chloride (D5-1/2ns) 1,000 ml @ 30 mls/hr Q24H ONCE IV Last administered on 09/12/17 04:44; Admin Dose 30 MLS/HR; Start 09/12/17 at 03:30 ; Stop 09/13/17 at 03:29 BRENTON NORTON Sep 12, 2017 14:17
[2017-09-12] MEDS ORDERED: LIDOCAINE 1% (MDV) 20 ML INJ ONE (14:29)
[2017-09-12] MEDS ORDERED: IODIXANOL LOCM 100 ML BTL ONE (14:29)
[2017-09-12] MEDS ORDERED: HEPARIN 1000 UNITS/ML 10 ML INJ ONE (14:37)
--- NOTE | 2017-09-12 14:58 | CONS ---
Date/Time of Note Date/Time of Note DATE: 09/12/17 TIME: 14:57 Consult Date/Type/Reason Admit Date/Time Aug 20, 2017 at 17:03 Initial Consult Date 08/20/17 Type of Consultation: Pulmonary Ordering Provider: LEILA GARCIA Subjective Patient appears comfortable this morning. No events. Objective Vital Signs Date Time Temp Pulse Resp B/P Pulse Ox O2 Delivery O2 Flow Rate FiO2 09/12/17 13:23 99 24 100 30 09/12/17 12:00 98.1 139/68 09/11/17 15:54 Mechanical Ventilator Intake and Output 09/11/17 09/11/17 09/12/17 15:00 23:00 07:00 Intake Total 500 ml 680 ml 450 ml Output Total 2500 ml Balance -2000 ml 680 ml 450 ml Exam PHYSICAL EXAMINATION GENERAL: Elderly gentleman, tracheostomy on mechanical ventilation VITAL SIGNS: see below. HEENT: Pupils equal, round, and reactive to light. Tracheostomy site clean and intact. CARDIAC: S1, S2, 1/6 systolic ejection murmur CHEST: Diminished air entry bilaterally. ABDOMEN: Mildly distended. Bowel sounds present no guarding or rebound EXTREMITIES: No cyanosis, clubbing edema +1 NEUROLOGIC: Generalized weakness Results/Medications Result Diagram: 09/12/17 0657 09/12/17 0657 Results 24 hrs Laboratory Tests Test 09/11/17 16:39 09/11/17 21:44 09/11/17 22:42 09/12/17 01:38 Bedside Glucose 77 53 L 99 81 Test 09/12/17 05:27 09/12/17 06:57 09/12/17 09:16 09/12/17 12:16 Bedside Glucose 86 88 49 *L White Blood Count 5.0 Red Blood Count 2.99 L Hemoglobin 8.5 L Hematocrit 27.3 L Mean Corpuscular Volume 91.3 Mean Corpuscular Hemoglobin 28.4 L Mean Corpuscular Hemoglobin Concent 31.1 L Red Cell Distribution Width 14.5 Platelet Count 208 Mean Platelet Volume 9.9 Neutrophils % 52.4 Lymphocytes % 31.6 Monocytes % 7.4 Eosinophils % 7.6 H Basophils % 0.8 Nucleated Red Blood Cells % 0.0 Neutrophils # 2.6 Lymphocytes # 1.6 Monocytes # 0.4 Eosinophils # 0.4 Basophils # 0.0 Nucleated Red Blood Cells # 0.0 Sodium Level 137 Potassium Level 4.1 Chloride Level 102 Carbon Dioxide Level 29 Anion Gap 10 Blood Urea Nitrogen 47 #H Creatinine 4.27 H Glucose Level 80 Calcium Level 8.1 L Test 09/12/17 13:20 Bedside Glucose 94 Medications Current Medications Diagnostic Test (Pha) (Accu-Chek) 1 ea 02 XX Last administered on 08/31/17 01 :33; Admin Dose 1 EA; Start 08/23/17 at 02:00 Miscellaneous Information 1 ea NOTE XX ; Start 08/22/17 at 13:30 Glucose (Glutose) 15 gm Q15M PRN PO DECREASED GLUCOSE; Start 08/22/17 at 13:30 Glucose (Glutose) 22.5 gm Q15M PRN PO DECREASED GLUCOSE; Start 08/22/17 at 13: 30 Dextrose (D50w Syringe) 25 ml Q15M PRN IV DECREASED GLUCOSE Last administered on 09/11/17 22:08; Admin Dose 25 ML; Start 08/22/17 at 13:30 Dextrose (D50w Syringe) 50 ml Q15M PRN IV DECREASED GLUCOSE Last administered on 09/12/17 12:27; Admin Dose 50 ML; Start 08/22/17 at 13:30 Glucagon (Glucagen) 1 mg Q15M PRN IM DECREASED GLUCOSE; Start 08/22/17 at 13:30 Glucose (Glutose) 15 gm Q15M PRN BUCCAL DECREASED GLUCOSE; Start 08/22/17 at 13 :30 Sodium Hypochlorite (Dakin'S (Dilute 1/40%)) 1 applic BID IRR Last administered on 09/12/17 12:27; Admin Dose 1 APPLIC; Start 08/23/17 at 09:00 Acetaminophen (Tylenol Tab) 500 mg Q4H PRN PO PAIN AND OR ELEVATED TEMP Last administered on 08/27/17 01:27; Admin Dose 500 MG; Start 08/25/17 at 12:00 Morphine Sulfate (morphine) 2 mg Q4H PRN IV PAIN LEVEL 4-6 Last administered on 09/03/17 20:38; Admin Dose 2 MG; Start 08/25/17 at 12:00 Lansoprazole (Prevacid) 30 mg DAILY@06 GTB Last administered on 09/12/17 07: 00; Admin Dose 30 MG; Start 08/29/17 at 06:00 Insulin Aspart (Novolog Insulin Pen) (Adult SC Insulin - Mild Algorithm)... Q4 SC Last administered on 09/05/17 17:51; Admin Dose 1 UNIT; Start 08/31/17 at 16:00 Lisinopril (Zestril) 20 mg BID PO Last administered on 09/11/17 21:46; Admin Dose 20 MG; Start 09/02/17 at 21:00 Clonidine (Catapres) 0.1 mg Q6H PRN GTB ELEVATED SYSTOLIC BP Last administered on 09/06/17 05:33; Admin Dose 0.1 MG; Start 09/02/17 at 21:30 Epoetin Bo (Epogen (Esrd)) 2,000 units MoWeFr@17 SC Last administered on 17:00; Admin Dose 2,000 UNITS; Start 09/05/17 at 17:00 Epoetin Bo (Epogen (Esrd)) 3,000 units MoWeFr@17 SC Last administered on 17:00; Admin Dose 3,000 UNITS; Start 09/05/17 at 17:00 Insulin Glargine (Lantus) 10 unit DAILY SC Last administered on 09/12/17 09: 25; Admin Dose 10 UNIT; Start 09/08/17 at 09:00 Metoprolol Tartrate (Lopressor) 75 mg BID GTB Last administered on 09/11/17 21:46; Admin Dose 75 MG; Start 09/10/17 at 21:00 Collagenase 1 applic 1 applic DAILY TOP Last administered on 09/12/17 09:00; Admin Dose 1 APPLIC; Start 09/11/17 at 09:00 Dextrose/Sodium Chloride (D5-1/2ns) 1,000 ml @ 30 mls/hr Q24H ONCE IV Last administered on 09/12/17 04:44; Admin Dose 30 MLS/HR; Start 09/12/17 at 03:30 ; Stop 09/13/17 at 03:29 Assessment/Plan Chief Complaint/Hosp Course IMP: 1. AMS 2. s/p Hypoxemic Resp Failure/s/pARDS/Trach 3. Acute on CKD 4. Demand ischemia 5. CHF 6. Anemia RECS: 1. Vent support 2. BD's 3. CPT 4. BP control DC planning okay from primary standpoint Problems: CHARLEE PORTER MD, [facility] Sep 12, 2017 14:58
--- NOTE | 2017-09-12 15:30 | PN ---
Date/Time of Note Date/Time of Note DATE: 09/12/17 TIME: 15:29 Assessment/Plan VTE Prophylaxis VTE Prophylaxis Intervention: SCD's Lines/Catheters IV [facility] PICC Line Central line still needed: Yes Urinary Cath still in place: No Assessment/Plan Chief Complaint/Hosp Course Patient remains hemodynamically stable, pending permacath placement today. Assessment/Plan -Acute on chronic CKD. Continue hemodialysis. Dr. Nieto is following in nephrology consultation. -Ventilator dependent respiratory failure with tracheostomy. -Pulmonary edema versus multifocal pneumonia, status post treatment with antibiotics. Dr Hill is following in infection disease consultation -Positive troponin in the setting of renal disease, Dr. Zuniga is following in cardiology consultation -Acute metabolic encephalopathy -Anemia, s/p blood transfusion, continue Epogen, continue to monitor hemoglobin and hematocrit -DM, continue Lantus, NovoLog per sliding scale. -Dysphagia with PEG -Sacral wound, Dr. Worthy is following in general surgery consultation. Continue current wound care, pending wound debridement. Further recommendations based on clinical course. Plan of care discussed with Dr. Chávez. Problems: Exam/Review of Systems Vital Signs Vitals Vital Signs Date Time Temp Pulse Resp B/P Pulse Ox O2 Delivery O2 Flow Rate FiO2 09/12/17 13:23 99 24 100 30 09/12/17 12:00 98.1 139/68 09/11/17 15:54 Mechanical Ventilator Intake and Output 09/11/17 09/11/17 09/12/17 15:00 23:00 07:00 Intake Total 500 ml 680 ml 450 ml Output Total 2500 ml Balance -2000 ml 680 ml 450 ml Exam Constitutional: non-verbal Head: normocephalic Neck: supple Respiratory: diminished breath sounds Cardiovascular: nl pulses Gastrointestinal: non-tender, other (G-tube), soft Extremities: edema Results Result Diagram: 09/12/17 0657 09/12/17 0657 Results 24 hrs Laboratory Tests Test 09/11/17 16:39 09/11/17 21:44 09/11/17 22:42 09/12/17 01:38 Bedside Glucose 77 53 L 99 81 Test 09/12/17 05:27 09/12/17 06:57 09/12/17 09:16 09/12/17 12:16 Bedside Glucose 86 88 49 *L White Blood Count 5.0 Red Blood Count 2.99 L Hemoglobin 8.5 L Hematocrit 27.3 L Mean Corpuscular Volume 91.3 Mean Corpuscular Hemoglobin 28.4 L Mean Corpuscular Hemoglobin Concent 31.1 L Red Cell Distribution Width 14.5 Platelet Count 208 Mean Platelet Volume 9.9 Neutrophils % 52.4 Lymphocytes % 31.6 Monocytes % 7.4 Eosinophils % 7.6 H Basophils % 0.8 Nucleated Red Blood Cells % 0.0 Neutrophils # 2.6 Lymphocytes # 1.6 Monocytes # 0.4 Eosinophils # 0.4 Basophils # 0.0 Nucleated Red Blood Cells # 0.0 Sodium Level 137 Potassium Level 4.1 Chloride Level 102 Carbon Dioxide Level 29 Anion Gap 10 Blood Urea Nitrogen 47 #H Creatinine 4.27 H Glucose Level 80 Calcium Level 8.1 L Test 09/12/17 13:20 Bedside Glucose 94 Medications Medications Current Medications Diagnostic Test (Pha) (Accu-Chek) 1 ea 02 XX Last administered on 08/31/17 01 :33; Admin Dose 1 EA; Start 08/23/17 at 02:00 Miscellaneous Information 1 ea NOTE XX ; Start 08/22/17 at 13:30 Glucose (Glutose) 15 gm Q15M PRN PO DECREASED GLUCOSE; Start 08/22/17 at 13:30 Glucose (Glutose) 22.5 gm Q15M PRN PO DECREASED GLUCOSE; Start 08/22/17 at 13: 30 Dextrose (D50w Syringe) 25 ml Q15M PRN IV DECREASED GLUCOSE Last administered on 09/11/17 22:08; Admin Dose 25 ML; Start 08/22/17 at 13:30 Dextrose (D50w Syringe) 50 ml Q15M PRN IV DECREASED GLUCOSE Last administered on 09/12/17 12:27; Admin Dose 50 ML; Start 08/22/17 at 13:30 Glucagon (Glucagen) 1 mg Q15M PRN IM DECREASED GLUCOSE; Start 08/22/17 at 13:30 Glucose (Glutose) 15 gm Q15M PRN BUCCAL DECREASED GLUCOSE; Start 08/22/17 at 13 :30 Sodium Hypochlorite (Dakin'S (Dilute 1/40%)) 1 applic BID IRR Last administered on 09/12/17 12:27; Admin Dose 1 APPLIC; Start 08/23/17 at 09:00 Acetaminophen (Tylenol Tab) 500 mg Q4H PRN PO PAIN AND OR ELEVATED TEMP Last administered on 08/27/17 01:27; Admin Dose 500 MG; Start 08/25/17 at 12:00 Morphine Sulfate (morphine) 2 mg Q4H PRN IV PAIN LEVEL 4-6 Last administered on 09/03/17 20:38; Admin Dose 2 MG; Start 08/25/17 at 12:00 Lansoprazole (Prevacid) 30 mg DAILY@06 GTB Last administered on 09/12/17 07: 00; Admin Dose 30 MG; Start 08/29/17 at 06:00 Insulin Aspart (Novolog Insulin Pen) (Adult SC Insulin - Mild Algorithm)... Q4 SC Last administered on 09/05/17 17:51; Admin Dose 1 UNIT; Start 08/31/17 at 16:00 Lisinopril (Zestril) 20 mg BID PO Last administered on 09/11/17 21:46; Admin Dose 20 MG; Start 09/02/17 at 21:00 Clonidine (Catapres) 0.1 mg Q6H PRN GTB ELEVATED SYSTOLIC BP Last administered on 09/06/17 05:33; Admin Dose 0.1 MG; Start 09/02/17 at 21:30 Epoetin Bo (Epogen (Esrd)) 2,000 units MoWeFr@17 SC Last administered on 17:00; Admin Dose 2,000 UNITS; Start 09/05/17 at 17:00 Epoetin Bo (Epogen (Esrd)) 3,000 units MoWeFr@17 SC Last administered on 17:00; Admin Dose 3,000 UNITS; Start 09/05/17 at 17:00 Insulin Glargine (Lantus) 10 unit DAILY SC Last administered on 09/12/17 09: 25; Admin Dose 10 UNIT; Start 09/08/17 at 09:00 Metoprolol Tartrate (Lopressor) 75 mg BID GTB Last administered on 09/11/17 21:46; Admin Dose 75 MG; Start 09/10/17 at 21:00 Collagenase 1 applic 1 applic DAILY TOP Last administered on 09/12/17 09:00; Admin Dose 1 APPLIC; Start 09/11/17 at 09:00 Dextrose/Sodium Chloride (D5-1/2ns) 1,000 ml @ 30 mls/hr Q24H ONCE IV Last administered on 09/12/17 04:44; Admin Dose 30 MLS/HR; Start 09/12/17 at 03:30 ; Stop 09/13/17 at 03:29 ARLETH MCKNIGHT Sep 12, 2017 15:30
--- NOTE | 2017-09-12 15:31 | OPR ---
Date/Time of Note Date/Time of Note DATE: 09/12/17 TIME: 15:30 Operative Report Procedure Date: Sep 12, 2017 Preoperative Diagnosis ESRD Postoperative Diagnosis same Operation/Procedure Performed RIJV Permcath placement Surgeon see signature line Patch Washer none Anesthesia Type: MAC Estimated Blood Loss: none Transfusion none Specimen none Grafts/Implants nonenone Tubes/Drains none Complications none Procedure Description dictated LULÚ MIRANDA MD Sep 12, 2017 15:31
--- NOTE | 2017-09-12 15:31 | OPR ---
Date/Time of Note Date/Time of Note DATE: 09/12/17 TIME: 15:30 Operative Report Procedure Date: Sep 12, 2017 Preoperative Diagnosis ESRD Postoperative Diagnosis same Operation/Procedure Performed RIJV Permcath placement Surgeon see signature line [place] Tender none Anesthesia Type: MAC Estimated Blood Loss: none Transfusion none Specimen none Grafts/Implants nonenone Tubes/Drains none Complications none Procedure Description dictated LULÚ MIRANDA MD Sep 12, 2017 15:31
--- NOTE | 2017-09-12 16:02 | RADRPT ---
PROCEDURE: XR Chest. CLINICAL INDICATION: Shortness of breath. TECHNIQUE: Single frontal view. COMPARISON: 09/02/2017. FINDINGS: The tracheostomy tube and tunneled right internal jugular vein dialysis catheter remain in satisfact ory position. Dense consolidation in the lungs and bilateral moderate pleural effusions are unchange d. The heart size is normal. There is no pneumothorax. IMPRESSION: 1. No change from 09/02/2017. RPTAT: QQ .Javi Bruno MD, MD Date Time Electronically viewed and signed by .Javi Bruno MD, MD on 09/12/2017 16:02 .R/
[2017-09-12] MEDS: EPOETIN 3000 UNITS/1 ML INJ (ESRD) SC SCH (17:00)
--- NOTE | 2017-09-12 17:28 | CONS ---
Date/Time of Note Date/Time of Note DATE: 09/12/17 TIME: 17:27 Assessment/Plan Assessment/Plan Additional Assessment/Plan 1. Sepsis due to PNA 2. Acute on chronic renal failure - with severe metabolic acidosis and acute uremic encephalopathy- pt is anuric, started on HD during this admission 3. AMS due to acute uremic encephalopathy + acute metabolic encephalopathy 3. H/o recent admission to [facility] for renal failure 4. H/o chronic resp failure s/p tracheostomy 5. HTN 6. H/o CVA with residual weakness 7.. IDDM 8. Anemia,severe, anemia of chronic disease, 9. RLE swelling Plan: started on HD during this admission,HDtomorrow after permacath placement , pt was scheduled fo [facility] but not able to get cosent from his son, awaiting consent from son for Permcath, currently has RLE Calos catheter, site clear, leg swelling but US neg for DVT US RLE negative for DVT Hepatitis panel, HIV negative pt will be [facility] HD patient Out[facility] HD placement is [facility] at [facility] IV abx as per ID will follow up Consultation Date/Type/Reason Admit Date/Time Aug 20, 2017 at 17:03 Initial Consult Date 08/20/17 Type of Consultation: NEPHROLOGY Referring Provider: LEILA GARCIA 24 HR Interval Summary Free Text/Dictation Plan for HD today, awaiting Permacath Exam/Review of Systems Vital Signs Vitals Vital Signs Date Time Temp Pulse Resp B/P Pulse Ox O2 Delivery O2 Flow Rate FiO2 09/12/17 17:00 74 09/12/17 16:20 98.0 18 138/68 98 09/12/17 14:55 30 09/11/17 15:54 Mechanical Ventilator Intake and Output 09/11/17 09/11/17 09/12/17 15:00 23:00 07:00 Intake Total 500 ml 680 ml 450 ml Output Total 2500 ml Balance -2000 ml 680 ml 450 ml Exam Constitutional: non-verbal ENMT: other (+ tracheostomy on ventilator ) Respiratory: congested cough, crackles/rales, diminished breath sounds Cardiovascular: S3, regular rate and rhythm Gastrointestinal: non-tender, soft Musculoskeletal: other (2+ pittign edema ), swelling Neurological: other (non verbal , pt is s/p tracheostomy on ventilator ) Results Result Diagram: 10/23/17 0657 09/12/17 0657 Results 24 hrs Laboratory Tests Test 09/11/17 21:44 09/11/17 22:42 09/12/17 01:38 09/12/17 05:27 Bedside Glucose 53 L 99 81 86 Test 09/12/17 06:57 09/12/17 09:16 09/12/17 12:16 09/12/17 13:20 White Blood Count 5.0 Red Blood Count 2.99 L Hemoglobin 8.5 L Hematocrit 27.3 L Mean Corpuscular Volume 91.3 Mean Corpuscular Hemoglobin 28.4 L Mean Corpuscular Hemoglobin Concent 31.1 L Red Cell Distribution Width 14.5 Platelet Count 208 Mean Platelet Volume 9.9 Neutrophils % 52.4 Lymphocytes % 31.6 Monocytes % 7.4 Eosinophils % 7.6 H Basophils % 0.8 Nucleated Red Blood Cells % 0.0 Neutrophils # 2.6 Lymphocytes # 1.6 Monocytes # 0.4 Eosinophils # 0.4 Basophils # 0.0 Nucleated Red Blood Cells # 0.0 Sodium Level 137 Potassium Level 4.1 Chloride Level 102 Carbon Dioxide Level 29 Anion Gap 10 Blood Urea Nitrogen 47 #H Creatinine 4.27 H Glucose Level 80 Calcium Level 8.1 L Bedside Glucose 88 49 *L 94 Medications Medications Current Medications Diagnostic Test (Pha) (Accu-Chek) 1 ea 02 XX Last administered on 08/31/17 01 :33; Admin Dose 1 EA; Start 08/23/17 at 02:00 Miscellaneous Information 1 ea NOTE XX ; Start 08/22/17 at 13:30 Glucose (Glutose) 15 gm Q15M PRN PO DECREASED GLUCOSE; Start 08/22/17 at 13:30 Glucose (Glutose) 22.5 gm Q15M PRN PO DECREASED GLUCOSE; Start 08/22/17 at 13: 30 Dextrose (D50w Syringe) 25 ml Q15M PRN IV DECREASED GLUCOSE Last administered on 09/11/17 22:08; Admin Dose 25 ML; Start 08/22/17 at 13:30 Dextrose (D50w Syringe) 50 ml Q15M PRN IV DECREASED GLUCOSE Last administered on 09/12/17 12:27; Admin Dose 50 ML; Start 08/22/17 at 13:30 Glucagon (Glucagen) 1 mg Q15M PRN IM DECREASED GLUCOSE; Start 08/22/17 at 13:30 Glucose (Glutose) 15 gm Q15M PRN BUCCAL DECREASED GLUCOSE; Start 08/22/17 at 13 :30 Sodium Hypochlorite (Dakin'S (Dilute 1/40%)) 1 applic BID IRR Last administered on 09/12/17 12:27; Admin Dose 1 APPLIC; Start 08/23/17 at 09:00 Acetaminophen (Tylenol Tab) 500 mg Q4H PRN PO PAIN AND OR ELEVATED TEMP Last administered on 08/27/17 01:27; Admin Dose 500 MG; Start 08/25/17 at 12:00 Morphine Sulfate (morphine) 2 mg Q4H PRN IV PAIN LEVEL 4-6 Last administered on 09/03/17 20:38; Admin Dose 2 MG; Start 08/25/17 at 12:00 Lansoprazole (Prevacid) 30 mg DAILY@06 GTB Last administered on 09/12/17 07: 00; Admin Dose 30 MG; Start 08/29/17 at 06:00 Insulin Aspart (Novolog Insulin Pen) (Adult SC Insulin - Mild Algorithm)... Q4 SC Last administered on 09/05/17 17:51; Admin Dose 1 UNIT; Start 08/31/17 at 16:00 Lisinopril (Zestril) 20 mg BID PO Last administered on 09/11/17 21:46; Admin Dose 20 MG; Start 09/02/17 at 21:00 Clonidine (Catapres) 0.1 mg Q6H PRN GTB ELEVATED SYSTOLIC BP Last administered on 09/06/17 05:33; Admin Dose 0.1 MG; Start 09/02/17 at 21:30 Epoetin Bo (Epogen (Esrd)) 2,000 units MoWeFr@17 SC Last administered on 17:00; Admin Dose 2,000 UNITS; Start 09/05/17 at 17:00 Epoetin Bo (Epogen (Esrd)) 3,000 units MoWeFr@17 SC Last administered on 17:00; Admin Dose 3,000 UNITS; Start 09/05/17 at 17:00 Insulin Glargine (Lantus) 10 unit DAILY SC Last administered on 09/12/17 09: 25; Admin Dose 10 UNIT; Start 09/08/17 at 09:00 Metoprolol Tartrate (Lopressor) 75 mg BID GTB Last administered on 09/11/17 21:46; Admin Dose 75 MG; Start 09/10/17 at 21:00 Collagenase 1 applic 1 applic DAILY TOP Last administered on 09/12/17 09:00; Admin Dose 1 APPLIC; Start 09/11/17 at 09:00 Dextrose/Sodium Chloride (D5-1/2ns) 1,000 ml @ 30 mls/hr Q24H ONCE IV Last administered on 09/12/17 04:44; Admin Dose 30 MLS/HR; Start 09/12/17 at 03:30 ; Stop 09/13/17 at 03:29 LUCILLE CABALLERO MD Sep 12, 2017 17:28
[2017-09-12] MEDS: EPOETIN 2000 UNITS/1 ML INJ (ESRD) SC SCH (19:36)
[2017-09-13] VITALS (22 sets, daily range): BP systolic 152–165; BP diastolic 63–74; PULSE 66–80; RESP 18–25
[2017-09-13] MEDS: INSULIN ASPART [NOVOLOG] 3 ML PEN SC SCH ×6 (01:00→21:00)
[2017-09-13] MEDS: ACCU-CHEK XX SCH (02:00)
[2017-09-13] MEDS: LANSOPRAZOLE 30 MG CAP GTB SCH (05:31)
[2017-09-13] MEDS: COLLAGENASE 30 GM TUBE TOP SCH (09:00)
[2017-09-13] MEDS: SODIUM HYPOCHLORITE 1/40% 1L IRRIG IRR SCH ×2 (09:33→20:53)
[2017-09-13] MEDS: LISINOPRIL 20 MG TAB PO SCH ×2 (09:34→20:52)
[2017-09-13] MEDS: METOPROLOL 50 MG TAB GTB SCH ×2 (09:35→20:52)
--- NOTE | 2017-09-13 09:36 | OPR ---
DATE OF OPERATION: PREOPERATIVE DIAGNOSIS: Renal failure. POSTOPERATIVE DIAGNOSIS: Renal failure. OPERATION PERFORMED: 1. Right internal jugular vein tunneled hemodialysis catheter placement. 2. Ultrasound guidance into the central vein. SURGEON: Lulú Pepper MD ANESTHESIA: Local. CONSENT: Risks, benefits, complications, alternative therapies explained to the patient and the [facility] kourtney, consent obtained. OPERATIVE TECHNIQUE: The patient was placed in supine position, prepped and draped in usual sterile fashion, 1% lidocaine was used throughout the operation for local anesthesia. Under ultrasonic sarah dance, access was gained in the right internal jugular vein. Guidewire was advanced through without any difficulty. Subcutaneous tissues dilated. A 19 cm tunneled hemodialysis catheter was brought into the subcutaneous tunnel, advanced into the right internal jugular vein and superior vena cava, all under fluoroscopic guidance. The tip was placed at the junction of the superior vena cava and r ight atrium. Both ports of the catheter were aspirated and injected using heparinized saline soluti on. The catheter was secured to skin using 2 nylon sutures. The neck site and the exit site were c losed using a single 3-0 Vicryl suture in interrupted fashion. Patient tolerated procedure well. Dictated By: LULÚ FUNK/JAMA Conf#: [id number] DID#: [id number]
--- NOTE | 2017-09-13 09:36 | OPR ---
DATE OF OPERATION: PREOPERATIVE DIAGNOSIS: Renal failure. POSTOPERATIVE DIAGNOSIS: Renal failure. OPERATION PERFORMED: 1. Right internal jugular vein tunneled hemodialysis catheter placement. 2. Ultrasound guidance into the central vein. SURGEON: Lulú Pepper MD ANESTHESIA: Local. CONSENT: Risks, benefits, complications, alternative therapies explained to the patient and the [facility] kourtney, consent obtained. OPERATIVE TECHNIQUE: The patient was placed in supine position, prepped and draped in usual sterile fashion, 1% lidocaine was used throughout the operation for local anesthesia. Under ultrasonic sarah dance, access was gained in the right internal jugular vein. Guidewire was advanced through without any difficulty. Subcutaneous tissues dilated. A 19 cm tunneled hemodialysis catheter was brought into the subcutaneous tunnel, advanced into the right internal jugular vein and superior vena cava, all under fluoroscopic guidance. The tip was placed at the junction of the superior vena cava and r ight atrium. Both ports of the catheter were aspirated and injected using heparinized saline soluti on. The catheter was secured to skin using 2 nylon sutures. The neck site and the exit site were c losed using a single 3-0 Vicryl suture in interrupted fashion. Patient tolerated procedure well. Dictated By: LULÚ FUNK/JAMA Conf#: [id number] DID#: [id number]
--- NOTE | 2017-09-13 09:36 | OPR ---
DATE OF OPERATION: PREOPERATIVE DIAGNOSIS: Renal failure. POSTOPERATIVE DIAGNOSIS: Renal failure. OPERATION PERFORMED: 1. Right internal jugular vein tunneled hemodialysis catheter placement. 2. Ultrasound guidance into the central vein. SURGEON: Lulú Pepper MD ANESTHESIA: Local. CONSENT: Risks, benefits, complications, alternative therapies explained to the patient and the [facility] kourtney, consent obtained. OPERATIVE TECHNIQUE: The patient was placed in supine position, prepped and draped in usual sterile fashion, 1% lidocaine was used throughout the operation for local anesthesia. Under ultrasonic sarah dance, access was gained in the right internal jugular vein. Guidewire was advanced through without any difficulty. Subcutaneous tissues dilated. A 19 cm tunneled hemodialysis catheter was brought into the subcutaneous tunnel, advanced into the right internal jugular vein and superior vena cava, all under fluoroscopic guidance. The tip was placed at the junction of the superior vena cava and r ight atrium. Both ports of the catheter were aspirated and injected using heparinized saline soluti on. The catheter was secured to skin using 2 nylon sutures. The neck site and the exit site were c losed using a single 3-0 Vicryl suture in interrupted fashion. Patient tolerated procedure well. Dictated By: LULÚ FUNK/JAMA Conf#: [id number] DID#: [id number]
[2017-09-13] MEDS: INSULIN GLARGINE [LANtus] 3 ML PEN SC SCH (09:41)
--- NOTE | 2017-09-13 11:08 | CONS ---
Date/Time of Note Date/Time of Note DATE: 09/13/17 TIME: 11:01 Assessment/Plan Assessment/Plan Additional Assessment/Plan 1. Positive troponin status. Significant in the setting of renal failure-No sig uptrend - no cp now, no intervention planned. STABLE. 2. Abnormal electrocardiogram, nonspecific ST-T abnormalities.- stable overall. No ectopy on tele. 3. Hypertension- labile - no CP, will allow for now - Rx as needed 4. Respiratory failure, chronic - resp team follows. BETTER overall. 5. Renal failure, acute on chronic- renal team follows. 6. Dysphagia, status post G-tube. 7. Anemia-ongoing - replace as needed 8. Thrombocytopenia-ongoing 9. Encephalopathy. 10. 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 11. Diabetes mellitus. 12. Hypokalemia 14. Cardiomyopathy-depressed EF 40% 15. PNA - rx with anti-Bx now Consultation Date/Type/Reason Admit Date/Time Aug 20, 2017 at 17:03 Initial Consult Date 08/20/17 Type of Consultation: NEPHROLOGY Referring Provider: LEILA GARCIA 24 HR Interval Summary Free Text/Dictation NO acute events - BP labile - will monitor closely. ROS: No fever, no chills, no nausea, no vomiting, no diarrhea/constipation No recent weight changes No chest pain, no PND, no orthopnea - stable SOB No dizziness, blurred vision No thirst, no heat or cold intolerance Exam/Review of Systems Vital Signs Vitals Vital Signs Date Time Temp Pulse Resp B/P Pulse Ox O2 Delivery O2 Flow Rate FiO2 09/13/17 08:29 71 09/13/17 08:03 98.4 18 155/70 98 09/13/17 05:27 30 09/11/17 15:54 Mechanical Ventilator Intake and Output 09/12/17 09/12/17 09/13/17 15:00 23:00 07:00 Intake Total 690 ml 700 ml Output Total 2700 ml Balance -2010 ml 700 ml Exam General: WN/WD/NAD, AOx 0 HEENT: Unicetric/atraumatic/EOMI (does not follow commands) NECK: trach Lymph: no lymphadenopathy HEART: regular with no S3, II/ systolic murmur at apex LUNGS: Coarse sounds ABD: soft, NT, ND, +BS : Intact Neuro: non focal SKIN: chronic changes EXT: trace edema Results Result Diagram: 09/13/17 0910 09/13/17 0816 Results 24 hrs Laboratory Tests Test 09/12/17 12:16 09/12/17 13:20 09/12/17 18:05 09/12/17 20:55 Bedside Glucose 49 *L 94 88 49 *L Test 09/12/17 21:16 09/12/17 21:41 09/13/17 01:23 09/13/17 04:33 Bedside Glucose 142 120 101 103 Test 09/13/17 08:16 09/13/17 09:10 09/13/17 09:32 Sodium Level 139 Potassium Level 3.8 Chloride Level 103 Carbon Dioxide Level 31 Anion Gap 9 Blood Urea Nitrogen 30 #H Creatinine 3.27 #H Glucose Level 110 Calcium Level 7.9 L White Blood Count 4.8 Red Blood Count 2.95 L Hemoglobin 8.3 L Hematocrit 26.6 L Mean Corpuscular Volume 90.2 Mean Corpuscular Hemoglobin 28.1 L Mean Corpuscular Hemoglobin Concent 31.2 L Red Cell Distribution Width 14.7 H Platelet Count 194 Mean Platelet Volume 10.1 Neutrophils % 52.5 Lymphocytes % 32.3 Monocytes % 7.7 Eosinophils % 6.3 Basophils % 1.0 Nucleated Red Blood Cells % 0.0 Neutrophils # 2.5 Lymphocytes # 1.6 Monocytes # 0.4 Eosinophils # 0.3 Basophils # 0.1 Nucleated Red Blood Cells # 0.0 Bedside Glucose 123 Medications Medications Current Medications Diagnostic Test (Pha) (Accu-Chek) 1 ea 02 XX Last administered on 08/31/17 01 :33; Admin Dose 1 EA; Start 08/23/17 at 02:00 Miscellaneous Information 1 ea NOTE XX ; Start 08/22/17 at 13:30 Glucose (Glutose) 15 gm Q15M PRN PO DECREASED GLUCOSE; Start 08/22/17 at 13:30 Glucose (Glutose) 22.5 gm Q15M PRN PO DECREASED GLUCOSE; Start 08/22/17 at 13: 30 Dextrose (D50w Syringe) 25 ml Q15M PRN IV DECREASED GLUCOSE Last administered on 09/12/17 21:00; Admin Dose 25 ML; Start 08/22/17 at 13:30 Dextrose (D50w Syringe) 50 ml Q15M PRN IV DECREASED GLUCOSE Last administered on 09/12/17 12:27; Admin Dose 50 ML; Start 08/22/17 at 13:30 Glucagon (Glucagen) 1 mg Q15M PRN IM DECREASED GLUCOSE; Start 08/22/17 at 13:30 Glucose (Glutose) 15 gm Q15M PRN BUCCAL DECREASED GLUCOSE; Start 08/22/17 at 13 :30 Sodium Hypochlorite (Dakin'S (Dilute 1/40%)) 1 applic BID IRR Last administered on 09/13/17 09:33; Admin Dose 1 APPLIC; Start 08/23/17 at 09:00 Acetaminophen (Tylenol Tab) 500 mg Q4H PRN PO PAIN AND OR ELEVATED TEMP Last administered on 08/27/17 01:27; Admin Dose 500 MG; Start 08/25/17 at 12:00 Morphine Sulfate (morphine) 2 mg Q4H PRN IV PAIN LEVEL 4-6 Last administered on 09/03/17 20:38; Admin Dose 2 MG; Start 08/25/17 at 12:00 Lansoprazole (Prevacid) 30 mg DAILY@06 GTB Last administered on 09/13/17 05: 31; Admin Dose 30 MG; Start 08/29/17 at 06:00 Insulin Aspart (Novolog Insulin Pen) (Adult SC Insulin - Mild Algorithm)... Q4 SC Last administered on 09/05/17 17:51; Admin Dose 1 UNIT; Start 08/31/17 at 16:00 Lisinopril (Zestril) 20 mg BID PO Last administered on 09/13/17 09:34; Admin Dose 20 MG; Start 09/02/17 at 21:00 Clonidine (Catapres) 0.1 mg Q6H PRN GTB ELEVATED SYSTOLIC BP Last administered on 09/13/17 04:36; Admin Dose 0.1 MG; Start 09/02/17 at 21:30 Epoetin Bo (Epogen (Esrd)) 2,000 units MoWeFr@17 SC Last administered on 19:36; Admin Dose 2,000 UNITS; Start 09/05/17 at 17:00 Epoetin Bo (Epogen (Esrd)) 3,000 units MoWeFr@17 SC Last administered on 17:00; Admin Dose 3,000 UNITS; Start 09/05/17 at 17:00 Insulin Glargine (Lantus) 10 unit DAILY SC Last administered on 09/13/17 09: 41; Admin Dose 10 UNIT; Start 09/08/17 at 09:00 Metoprolol Tartrate (Lopressor) 75 mg BID GTB Last administered on 09/13/17 09:35; Admin Dose 75 MG; Start 09/10/17 at 21:00 Collagenase (Santyl) 1 applic DAILY TOP Last administered on 09/12/17 09:00; Admin Dose 1 APPLIC; Start 09/11/17 at 09:00 ABE SILVA MD Sep 13, 2017 11:08
--- NOTE | 2017-09-13 14:19 | PN ---
Date/Time of Note Date/Time of Note DATE: 09/13/17 TIME: 14:12 Assessment/Plan Lines/Catheters IV Catheter Type (from Nrs): Central Line Chun in Place (from Nrs): No Assessment/Plan Chief Complaint/Hosp Course 1. Sacral wound with mod drainage and odor: +wound cultures -Frequent turning and offloading -local care with dakins -debridement: left a message for son/decision maker; awaiting decision; in the interim can continue with local care -low airloss mattress -optimize nutrition -vitamin c/short term zinc 2. VRDF w pna: -cont vent management -pulm toilet -abx per ID 3. Acute on chronic kidney disease: r ij cath placed yesterday -per renal -limit nephrotoxic meds -HD per renal 4. Anemia: no acute bleed noted -monitor and transfuse prn 5. Dysphagia w tf -continue tf w aspiration precautions 6. Diabetes: with episode of hypoglycemia today -blood sugar optimization Thank you. Patient seen and examined in collaboration w Dr. Sukumar Worthy. Problems: Subjective 24 Hr Interval Summary No acute changes. Appears comfortable on vent. No SOB, congested cough. Non- verbal indicators of pain not present. No fevers, seizures, new wounds. Exam/Review of Systems Vital Signs Vitals Vital Signs Date Time Temp Pulse Resp B/P Pulse Ox O2 Delivery O2 Flow Rate FiO2 09/13/17 13:05 78 24 99 30 09/13/17 11:46 98.5 157/69 09/11/17 15:54 Mechanical Ventilator Intake and Output 09/12/17 09/12/17 09/13/17 15:00 23:00 07:00 Intake Total 690 ml 700 ml Output Total 2700 ml Balance -2010 ml 700 ml Exam Free Text/Dictation Constitutional: other (somnolent, opens eyes with stimuli), No distress Psych: other (flat) Head: atraumatic, normocephalic Eyes: nl lids, nl sclera ENMT: mucosa pink and moist Neck: other (trach) Respiratory: other (vent), No congested cough, No labored breathing Cardiovascular: nl pulses, regular rate and rhythm (sr) Gastrointestinal: soft, No distended (peg) Musculoskeletal: muscle weakness (stiffness), No nl gait and stance Extremities: normal pulses Neurological: No nl speech, No nl strength Skin: other (sacrum with improved odor and large drainage) Results Result Diagram: 09/13/17 0910 09/13/17 0816 KAMILLA KEATING NP Sep 13, 2017 14:19
--- NOTE | 2017-09-13 15:25 | CONS ---
Date/Time of Note Date/Time of Note DATE: 09/13/17 TIME: 15:25 Consult Date/Type/Reason Admit Date/Time Aug 20, 2017 at 17:03 Initial Consult Date 08/20/17 Type of Consultation: Pulmonary Ordering Provider: LEILA GARCIA Subjective Patient comfortable today. Objective Vital Signs Date Time Temp Pulse Resp B/P Pulse Ox O2 Delivery O2 Flow Rate FiO2 09/13/17 15:00 98.1 76 18 152/63 97 09/13/17 13:05 30 09/11/17 15:54 Mechanical Ventilator Intake and Output 09/12/17 09/12/17 09/13/17 15:00 23:00 07:00 Intake Total 690 ml 700 ml Output Total 2700 ml Balance -2010 ml 700 ml Exam PHYSICAL EXAMINATION GENERAL: Elderly gentleman, tracheostomy on mechanical ventilation VITAL SIGNS: see below. HEENT: Pupils equal, round, and reactive to light. Tracheostomy site clean and intact. CARDIAC: S1, S2, 1/6 systolic ejection murmur CHEST: Diminished air entry bilaterally. ABDOMEN: Mildly distended. Bowel sounds present no guarding or rebound EXTREMITIES: No cyanosis, clubbing edema +1 NEUROLOGIC: Generalized weakness Results/Medications Result Diagram: 09/13/17 0910 09/13/17 0816 Results 24 hrs Laboratory Tests Test 09/12/17 18:05 09/12/17 20:55 09/12/17 21:16 09/12/17 21:41 Bedside Glucose 88 49 *L 142 120 Test 09/13/17 01:23 09/13/17 04:33 09/13/17 08:16 09/13/17 09:10 Bedside Glucose 101 103 Sodium Level 139 Potassium Level 3.8 Chloride Level 103 Carbon Dioxide Level 31 Anion Gap 9 Blood Urea Nitrogen 30 #H Creatinine 3.27 #H Glucose Level 110 Calcium Level 7.9 L White Blood Count 4.8 Red Blood Count 2.95 L Hemoglobin 8.3 L Hematocrit 26.6 L Mean Corpuscular Volume 90.2 Mean Corpuscular Hemoglobin 28.1 L Mean Corpuscular Hemoglobin Concent 31.2 L Red Cell Distribution Width 14.7 H Platelet Count 194 Mean Platelet Volume 10.1 Neutrophils % 52.5 Lymphocytes % 32.3 Monocytes % 7.7 Eosinophils % 6.3 Basophils % 1.0 Nucleated Red Blood Cells % 0.0 Neutrophils # 2.5 Lymphocytes # 1.6 Monocytes # 0.4 Eosinophils # 0.3 Basophils # 0.1 Nucleated Red Blood Cells # 0.0 Test 09/13/17 09:32 09/13/17 13:02 Bedside Glucose 123 99 Medications Current Medications Diagnostic Test (Pha) (Accu-Chek) 1 ea 02 XX Last administered on 08/31/17 01 :33; Admin Dose 1 EA; Start 08/23/17 at 02:00 Miscellaneous Information 1 ea NOTE XX ; Start 08/22/17 at 13:30 Glucose (Glutose) 15 gm Q15M PRN PO DECREASED GLUCOSE; Start 08/22/17 at 13:30 Glucose (Glutose) 22.5 gm Q15M PRN PO DECREASED GLUCOSE; Start 08/22/17 at 13: 30 Dextrose (D50w Syringe) 25 ml Q15M PRN IV DECREASED GLUCOSE Last administered on 09/12/17 21:00; Admin Dose 25 ML; Start 08/22/17 at 13:30 Dextrose (D50w Syringe) 50 ml Q15M PRN IV DECREASED GLUCOSE Last administered on 09/12/17 12:27; Admin Dose 50 ML; Start 08/22/17 at 13:30 Glucagon (Glucagen) 1 mg Q15M PRN IM DECREASED GLUCOSE; Start 08/22/17 at 13:30 Glucose (Glutose) 15 gm Q15M PRN BUCCAL DECREASED GLUCOSE; Start 08/22/17 at 13 :30 Sodium Hypochlorite (Dakin'S (Dilute 1/40%)) 1 applic BID IRR Last administered on 09/13/17 09:33; Admin Dose 1 APPLIC; Start 08/23/17 at 09:00 Acetaminophen (Tylenol Tab) 500 mg Q4H PRN PO PAIN AND OR ELEVATED TEMP Last administered on 08/27/17 01:27; Admin Dose 500 MG; Start 08/25/17 at 12:00 Morphine Sulfate (morphine) 2 mg Q4H PRN IV PAIN LEVEL 4-6 Last administered on 09/03/17 20:38; Admin Dose 2 MG; Start 08/25/17 at 12:00 Lansoprazole (Prevacid) 30 mg DAILY@06 GTB Last administered on 09/13/17 05: 31; Admin Dose 30 MG; Start 08/29/17 at 06:00 Insulin Aspart (Novolog Insulin Pen) (Adult SC Insulin - Mild Algorithm)... Q4 SC Last administered on 09/05/17 17:51; Admin Dose 1 UNIT; Start 08/31/17 at 16:00 Lisinopril (Zestril) 20 mg BID PO Last administered on 09/13/17 09:34; Admin Dose 20 MG; Start 09/02/17 at 21:00 Clonidine (Catapres) 0.1 mg Q6H PRN GTB ELEVATED SYSTOLIC BP Last administered on 09/13/17 04:36; Admin Dose 0.1 MG; Start 09/02/17 at 21:30 Epoetin Bo (Epogen (Esrd)) 2,000 units MoWeFr@17 SC Last administered on 19:36; Admin Dose 2,000 UNITS; Start 09/05/17 at 17:00 Epoetin Bo (Epogen (Esrd)) 3,000 units MoWeFr@17 SC Last administered on 17:00; Admin Dose 3,000 UNITS; Start 09/05/17 at 17:00 Insulin Glargine (Lantus) 10 unit DAILY SC Last administered on 09/13/17 09: 41; Admin Dose 10 UNIT; Start 09/08/17 at 09:00 Metoprolol Tartrate (Lopressor) 75 mg BID GTB Last administered on 09/13/17 09:35; Admin Dose 75 MG; Start 09/10/17 at 21:00 Collagenase (Santyl) 1 applic DAILY TOP Last administered on 09/12/17 09:00; Admin Dose 1 APPLIC; Start 09/11/17 at 09:00 Assessment/Plan Chief Complaint/Hosp Course IMP: 1. AMS 2. s/p Hypoxemic Resp Failure/s/pARDS/Trach 3. Acute on CKD 4. Demand ischemia 5. CHF 6. Anemia RECS: 1. Vent support 2. BD's 3. CPT 4. BP control DC planning okay from pulmonary standpoint Problems: CHARLEE PORTER MD, [facility] Sep 13, 2017 15:25
--- NOTE | 2017-09-13 15:58 | PN ---
Date/Time of Note Date/Time of Note DATE: 09/13/17 TIME: 15:57 Assessment/Plan VTE Prophylaxis VTE Prophylaxis Intervention: SCD's Lines/Catheters [facility] Central Line Central line still needed: Yes Urinary Cath still in place: No Assessment/Plan Chief Complaint/Hosp Course Patient status post permacath placement by vascular surgery, remains hemodynamically stable. Assessment/Plan -Acute on chronic CKD. Continue hemodialysis. Dr. Nieto is following in nephrology consultation. -Ventilator dependent respiratory failure with tracheostomy. -Pulmonary edema versus multifocal pneumonia, status post treatment with antibiotics. Dr Hill is following in infection disease consultation -Positive troponin in the setting of renal disease, Dr. Zuniga is following in cardiology consultation -Acute metabolic encephalopathy -Anemia, s/p blood transfusion, continue Epogen, continue to monitor hemoglobin and hematocrit -DM, continue Lantus, NovoLog per sliding scale. -Dysphagia with PEG -Sacral wound, Dr. Worthy is following in general surgery consultation. Continue current wound care, pending wound debridement. Further recommendations based on clinical course. Plan of care discussed with Dr. Chávez. Problems: Exam/Review of Systems Vital Signs Vitals Vital Signs Date Time Temp Pulse Resp B/P Pulse Ox O2 Delivery O2 Flow Rate FiO2 09/13/17 15:00 98.1 76 18 152/63 97 09/13/17 13:05 30 09/11/17 15:54 Mechanical Ventilator Intake and Output 09/12/17 09/12/17 09/13/17 15:00 23:00 07:00 Intake Total 690 ml 700 ml Output Total 2700 ml Balance -2010 ml 700 ml Exam Constitutional: non-verbal Head: normocephalic Neck: supple Respiratory: diminished breath sounds Cardiovascular: nl pulses Gastrointestinal: non-tender, other (G-tube), soft Extremities: edema Results Result Diagram: 09/13/17 0910 09/13/17 0816 Results 24 hrs Laboratory Tests Test 09/12/17 18:05 09/12/17 20:55 09/12/17 21:16 09/12/17 21:41 Bedside Glucose 88 49 *L 142 120 Test 09/13/17 01:23 09/13/17 04:33 09/13/17 08:16 09/13/17 09:10 Bedside Glucose 101 103 Sodium Level 139 Potassium Level 3.8 Chloride Level 103 Carbon Dioxide Level 31 Anion Gap 9 Blood Urea Nitrogen 30 #H Creatinine 3.27 #H Glucose Level 110 Calcium Level 7.9 L White Blood Count 4.8 Red Blood Count 2.95 L Hemoglobin 8.3 L Hematocrit 26.6 L Mean Corpuscular Volume 90.2 Mean Corpuscular Hemoglobin 28.1 L Mean Corpuscular Hemoglobin Concent 31.2 L Red Cell Distribution Width 14.7 H Platelet Count 194 Mean Platelet Volume 10.1 Neutrophils % 52.5 Lymphocytes % 32.3 Monocytes % 7.7 Eosinophils % 6.3 Basophils % 1.0 Nucleated Red Blood Cells % 0.0 Neutrophils # 2.5 Lymphocytes # 1.6 Monocytes # 0.4 Eosinophils # 0.3 Basophils # 0.1 Nucleated Red Blood Cells # 0.0 Test 09/13/17 09:32 09/13/17 13:02 Bedside Glucose 123 99 Medications Medications Current Medications Diagnostic Test (Pha) (Accu-Chek) 1 ea 02 XX Last administered on 08/31/17 01 :33; Admin Dose 1 EA; Start 08/23/17 at 02:00 Miscellaneous Information 1 ea NOTE XX ; Start 08/22/17 at 13:30 Glucose (Glutose) 15 gm Q15M PRN PO DECREASED GLUCOSE; Start 08/22/17 at 13:30 Glucose (Glutose) 22.5 gm Q15M PRN PO DECREASED GLUCOSE; Start 08/22/17 at 13: 30 Dextrose (D50w Syringe) 25 ml Q15M PRN IV DECREASED GLUCOSE Last administered on 09/12/17 21:00; Admin Dose 25 ML; Start 08/22/17 at 13:30 Dextrose (D50w Syringe) 50 ml Q15M PRN IV DECREASED GLUCOSE Last administered on 09/12/17 12:27; Admin Dose 50 ML; Start 08/22/17 at 13:30 Glucagon (Glucagen) 1 mg Q15M PRN IM DECREASED GLUCOSE; Start 08/22/17 at 13:30 Glucose (Glutose) 15 gm Q15M PRN BUCCAL DECREASED GLUCOSE; Start 08/22/17 at 13 :30 Sodium Hypochlorite (Dakin'S (Dilute 1/40%)) 1 applic BID IRR Last administered on 09/13/17 09:33; Admin Dose 1 APPLIC; Start 08/23/17 at 09:00 Acetaminophen (Tylenol Tab) 500 mg Q4H PRN PO PAIN AND OR ELEVATED TEMP Last administered on 08/27/17 01:27; Admin Dose 500 MG; Start 08/25/17 at 12:00 Morphine Sulfate (morphine) 2 mg Q4H PRN IV PAIN LEVEL 4-6 Last administered on 09/03/17 20:38; Admin Dose 2 MG; Start 08/25/17 at 12:00 Lansoprazole (Prevacid) 30 mg DAILY@06 GTB Last administered on 09/13/17 05: 31; Admin Dose 30 MG; Start 08/29/17 at 06:00 Insulin Aspart (Novolog Insulin Pen) (Adult SC Insulin - Mild Algorithm)... Q4 SC Last administered on 09/05/17 17:51; Admin Dose 1 UNIT; Start 08/31/17 at 16:00 Lisinopril (Zestril) 20 mg BID PO Last administered on 09/13/17 09:34; Admin Dose 20 MG; Start 09/02/17 at 21:00 Clonidine (Catapres) 0.1 mg Q6H PRN GTB ELEVATED SYSTOLIC BP Last administered on 09/13/17 04:36; Admin Dose 0.1 MG; Start 09/02/17 at 21:30 Epoetin Bo (Epogen (Esrd)) 2,000 units MoWeFr@17 SC Last administered on 19:36; Admin Dose 2,000 UNITS; Start 09/05/17 at 17:00 Epoetin Bo (Epogen (Esrd)) 3,000 units MoWeFr@17 SC Last administered on 17:00; Admin Dose 3,000 UNITS; Start 09/05/17 at 17:00 Insulin Glargine (Lantus) 10 unit DAILY SC Last administered on 09/13/17 09: 41; Admin Dose 10 UNIT; Start 09/08/17 at 09:00 Metoprolol Tartrate (Lopressor) 75 mg BID GTB Last administered on 09/13/17 09:35; Admin Dose 75 MG; Start 09/10/17 at 21:00 Collagenase (Santyl) 1 applic DAILY TOP Last administered on 09/12/17 09:00; Admin Dose 1 APPLIC; Start 09/11/17 at 09:00 ARLETH MCKNIGHT Sep 13, 2017 15:58
--- NOTE | 2017-09-13 17:06 | CONS ---
Date/Time of Note Date/Time of Note DATE: 09/13/17 TIME: 17:04 Assessment/Plan Assessment/Plan Additional Assessment/Plan 1. Sepsis due to PNA 2. Acute on chronic renal failure - with severe metabolic acidosis and acute uremic encephalopathy- pt is anuric, started on HD during this admission 3. AMS due to acute uremic encephalopathy + acute metabolic encephalopathy 3. H/o recent admission to [facility] for renal failure 4. H/o chronic resp failure s/p tracheostomy 5. HTN 6. H/o CVA with residual weakness 7.. IDDM 8. Anemia,severe, anemia of chronic disease, 9. 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 Outpatient HD placement is requested at [facility] IV abx as per ID will follow up Consultation Date/Type/Reason Admit Date/Time Aug 20, 2017 at 17:03 Initial Consult Date 08/20/17 Type of Consultation: NEPHROLOGY Referring Provider: LEILA GARCIA Exam/Review of Systems Vital Signs Vitals Vital Signs Date Time Temp Pulse Resp B/P Pulse Ox O2 Delivery O2 Flow Rate FiO2 09/13/17 15:00 98.1 76 18 152/63 97 09/13/17 13:05 30 09/11/17 15:54 Mechanical Ventilator Intake and Output 09/12/17 09/12/17 09/13/17 15:00 23:00 07:00 Intake Total 690 ml 700 ml Output Total 2700 ml Balance -2010 ml 700 ml Exam Constitutional: non-verbal ENMT: other (+ tracheostomy on ventilator ) Respiratory: congested cough, crackles/rales, diminished breath sounds Cardiovascular: S3, regular rate and rhythm Gastrointestinal: non-tender, soft Musculoskeletal: other (2+ pittign edema ), swelling Neurological: other (non verbal , pt is s/p tracheostomy on ventilator ) Results Result Diagram: 09/13/17 0910 09/13/17 0816 Results 24 hrs Laboratory Tests Test 09/12/17 18:05 09/12/17 20:55 09/12/17 21:16 09/12/17 21:41 Bedside Glucose 88 49 *L 142 120 Test 09/13/17 01:23 09/13/17 04:33 09/13/17 08:16 09/13/17 09:10 Bedside Glucose 101 103 Sodium Level 139 Potassium Level 3.8 Chloride Level 103 Carbon Dioxide Level 31 Anion Gap 9 Blood Urea Nitrogen 30 #H Creatinine 3.27 #H Glucose Level 110 Calcium Level 7.9 L White Blood Count 4.8 Red Blood Count 2.95 L Hemoglobin 8.3 L Hematocrit 26.6 L Mean Corpuscular Volume 90.2 Mean Corpuscular Hemoglobin 28.1 L Mean Corpuscular Hemoglobin Concent 31.2 L Red Cell Distribution Width 14.7 H Platelet Count 194 Mean Platelet Volume 10.1 Neutrophils % 52.5 Lymphocytes % 32.3 Monocytes % 7.7 Eosinophils % 6.3 Basophils % 1.0 Nucleated Red Blood Cells % 0.0 Neutrophils # 2.5 Lymphocytes # 1.6 Monocytes # 0.4 Eosinophils # 0.3 Basophils # 0.1 Nucleated Red Blood Cells # 0.0 Test 09/13/17 09:32 09/13/17 13:02 Bedside Glucose 123 99 Medications Medications Current Medications Diagnostic Test (Pha) (Accu-Chek) 1 ea 02 XX Last administered on 08/31/17 01 :33; Admin Dose 1 EA; Start 08/23/17 at 02:00 Miscellaneous Information 1 ea NOTE XX ; Start 08/22/17 at 13:30 Glucose (Glutose) 15 gm Q15M PRN PO DECREASED GLUCOSE; Start 08/22/17 at 13:30 Glucose (Glutose) 22.5 gm Q15M PRN PO DECREASED GLUCOSE; Start 08/22/17 at 13: 30 Dextrose (D50w Syringe) 25 ml Q15M PRN IV DECREASED GLUCOSE Last administered on 09/12/17 21:00; Admin Dose 25 ML; Start 08/22/17 at 13:30 Dextrose (D50w Syringe) 50 ml Q15M PRN IV DECREASED GLUCOSE Last administered on 09/12/17 12:27; Admin Dose 50 ML; Start 08/22/17 at 13:30 Glucagon (Glucagen) 1 mg Q15M PRN IM DECREASED GLUCOSE; Start 08/22/17 at 13:30 Glucose (Glutose) 15 gm Q15M PRN BUCCAL DECREASED GLUCOSE; Start 08/22/17 at 13 :30 Sodium Hypochlorite (Dakin'S (Dilute 1/40%)) 1 applic BID IRR Last administered on 09/13/17 09:33; Admin Dose 1 APPLIC; Start 08/23/17 at 09:00 Acetaminophen (Tylenol Tab) 500 mg Q4H PRN PO PAIN AND OR ELEVATED TEMP Last administered on 08/27/17 01:27; Admin Dose 500 MG; Start 08/25/17 at 12:00 Morphine Sulfate (morphine) 2 mg Q4H PRN IV PAIN LEVEL 4-6 Last administered on 09/03/17 20:38; Admin Dose 2 MG; Start 08/25/17 at 12:00 Lansoprazole (Prevacid) 30 mg DAILY@06 GTB Last administered on 09/13/17 05: 31; Admin Dose 30 MG; Start 08/29/17 at 06:00 Insulin Aspart (Novolog Insulin Pen) (Adult SC Insulin - Mild Algorithm)... Q4 SC Last administered on 09/05/17 17:51; Admin Dose 1 UNIT; Start 08/31/17 at 16:00 Lisinopril (Zestril) 20 mg BID PO Last administered on 09/13/17 09:34; Admin Dose 20 MG; Start 09/02/17 at 21:00 Clonidine (Catapres) 0.1 mg Q6H PRN GTB ELEVATED SYSTOLIC BP Last administered on 09/13/17 04:36; Admin Dose 0.1 MG; Start 09/02/17 at 21:30 Epoetin Bo (Epogen (Esrd)) 2,000 units MoWeFr@17 SC Last administered on 19:36; Admin Dose 2,000 UNITS; Start 09/05/17 at 17:00 Epoetin Bo (Epogen (Esrd)) 3,000 units MoWeFr@17 SC Last administered on 17:00; Admin Dose 3,000 UNITS; Start 09/05/17 at 17:00 Insulin Glargine (Lantus) 10 unit DAILY SC Last administered on 09/13/17 09: 41; Admin Dose 10 UNIT; Start 09/08/17 at 09:00 Metoprolol Tartrate (Lopressor) 75 mg BID GTB Last administered on 09/13/17 09:35; Admin Dose 75 MG; Start 09/10/17 at 21:00 Collagenase (Santyl) 1 applic DAILY TOP Last administered on 09/12/17t 09:00; Admin Dose 1 APPLIC; Start 09/11/17 at 09:00 LUCILLE CABALLERO MD Sep 13, 2017 17:06
[2017-09-13] MEDS: DEXTROSE 50% 50 ML SYRINGE IV PRN (18:10)
[2017-09-14] VITALS (27 sets, daily range): BP systolic 140–167; BP diastolic 76–86; PULSE 75–105; RESP 16–24
[2017-09-14] MEDS: INSULIN ASPART [NOVOLOG] 3 ML PEN SC SCH ×6 (01:00→21:00)
[2017-09-14] MEDS: ACCU-CHEK XX SCH (02:01)
[2017-09-14] MEDS: LANSOPRAZOLE 30 MG CAP GTB SCH (06:42)
[2017-09-14] MEDS: SODIUM HYPOCHLORITE 1/40% 1L IRRIG IRR SCH ×2 (08:48→21:27)
[2017-09-14] MEDS: LISINOPRIL 20 MG TAB PO SCH ×2 (08:49→21:27)
[2017-09-14] MEDS: METOPROLOL 50 MG TAB GTB SCH ×2 (08:49→21:27)
[2017-09-14] MEDS: COLLAGENASE 30 GM TUBE TOP SCH (08:50)
[2017-09-14] MEDS: INSULIN GLARGINE [LANtus] 3 ML PEN SC SCH (08:52)
--- NOTE | 2017-09-14 12:04 | CONS ---
Date/Time of Note Date/Time of Note DATE: 09/14/17 TIME: 12:02 Assessment/Plan Assessment/Plan Additional Assessment/Plan Ventilator setting; AC of 24, tidal volume 450, PEEP of 5, 35% FiO2. Assessment and recommendations; 1. Patient admitted with severe bilateral pneumonia and CHF. 2. Advanced dementia. 3. Renal failure, now requiring hemodialysis. 4. Anemia. Next Continue current supportive care. Prognosis is poor. Consultation Date/Type/Reason Admit Date/Time Aug 20, 2017 at 17:03 Initial Consult Date 08/20/17 Type of Consultation: Pulmonary Referring Provider: LEILA GARCIA 24 HR Interval Summary Free Text/Dictation Patient's condition remains tenuous at best. Remains unresponsive due to advanced anoxic brain injury. Has remained hemodynamically stable. General exam; elderly male, on ventilator via tracheostomy, unresponsive, currently in no distress. Exam/Review of Systems Vital Signs Vitals Vital Signs Date Time Temp Pulse Resp B/P Pulse Ox O2 Delivery O2 Flow Rate FiO2 09/14/17 11:42 98.8 81 18 163/76 99 09/14/17 08:03 30 09/11/17 15:54 Mechanical Ventilator Intake and Output 09/13/17 09/13/17 09/14/17 15:00 23:00 07:00 Intake Total 580 ml 540 ml Balance 580 ml 540 ml Exam HEENT exam; supple neck, positive JVD. No lymphadenopathy. Midline trachea. No thyromegaly. Tracheostomy in place. No neck masses. Chest exam; diminished breath sounds bilaterally. S1-S2 audible, no murmurs. Abdomen exam; soft, G-tube in place. Bowel sounds are audible. Extremity exam; no peripheral edema. 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 Results Result Diagram: 09/14/17 0610 09/14/17 0610 Results 24 hrs Laboratory Tests Test 09/13/17 13:02 09/13/17 18:02 09/13/17 20:55 09/14/17 01:08 Bedside Glucose 99 64 L 88 99 Test 09/14/17 05:07 09/14/17 06:10 09/14/17 08:46 Bedside Glucose 135 165 White Blood Count 6.0 # Red Blood Count 3.08 L Hemoglobin 8.7 L Hematocrit 28.0 L Mean Corpuscular Volume 90.9 Mean Corpuscular Hemoglobin 28.2 L Mean Corpuscular Hemoglobin Concent 31.1 L Red Cell Distribution Width 14.6 H Platelet Count 197 Mean Platelet Volume 9.7 Neutrophils % 56.5 Lymphocytes % 27.6 Monocytes % 7.8 Eosinophils % 7.2 H Basophils % 0.7 Nucleated Red Blood Cells % 0.0 Neutrophils # 3.4 Lymphocytes # 1.7 Monocytes # 0.5 Eosinophils # 0.4 Basophils # 0.0 Nucleated Red Blood Cells # 0.0 Sodium Level 138 Potassium Level 4.5 Chloride Level 100 Carbon Dioxide Level 30 Anion Gap 13 Blood Urea Nitrogen 36 H Creatinine 3.78 H Glucose Level 122 Calcium Level 7.6 L Medications Medications Current Medications Diagnostic Test (Pha) (Accu-Chek) 1 ea 02 XX Last administered on 09/14/17 02 :01; Admin Dose 1 EA; Start 08/23/17 at 02:00 Miscellaneous Information 1 ea NOTE XX ; Start 08/22/17 at 13:30 Glucose (Glutose) 15 gm Q15M PRN PO DECREASED GLUCOSE; Start 08/22/17 at 13:30 Glucose (Glutose) 22.5 gm Q15M PRN PO DECREASED GLUCOSE; Start 08/22/17 at 13: 30 Dextrose (D50w Syringe) 25 ml Q15M PRN IV DECREASED GLUCOSE Last administered on 09/13/17 18:10; Admin Dose 25 ML; Start 08/22/17 at 13:30 Dextrose (D50w Syringe) 50 ml Q15M PRN IV DECREASED GLUCOSE Last administered on 09/12/17 12:27; Admin Dose 50 ML; Start 08/22/17 at 13:30 Glucagon (Glucagen) 1 mg Q15M PRN IM DECREASED GLUCOSE; Start 08/22/17 at 13:30 Glucose (Glutose) 15 gm Q15M PRN BUCCAL DECREASED GLUCOSE; Start 08/22/17 at 13 :30 Sodium Hypochlorite (Dakin'S (Dilute 1/40%)) 1 applic BID IRR Last administered on 09/14/17 08:48; Admin Dose 1 APPLIC; Start 08/23/17 at 09:00 Acetaminophen (Tylenol Tab) 500 mg Q4H PRN PO PAIN AND OR ELEVATED TEMP Last administered on 08/27/17 01:27; Admin Dose 500 MG; Start 08/25/17 at 12:00 Morphine Sulfate (morphine) 2 mg Q4H PRN IV PAIN LEVEL 4-6 Last administered on 09/03/17 20:38; Admin Dose 2 MG; Start 08/25/17 at 12:00 Lansoprazole (Prevacid) 30 mg DAILY@06 GTB Last administered on 09/14/17 06: 42; Admin Dose 30 MG; Start 08/29/17 at 06:00 Insulin Aspart (Novolog Insulin Pen) (Adult SC Insulin - Mild Algorithm)... Q4 SC Last administered on 09/14/17 08:53; Admin Dose 1 UNIT; Start 08/31/17 at 16:00 Lisinopril (Zestril) 20 mg BID PO Last administered on 09/13/17 20:52; Admin Dose 20 MG; Start 09/02/17 at 21:00 Clonidine (Catapres) 0.1 mg Q6H PRN GTB ELEVATED SYSTOLIC BP Last administered on 09/13/17 04:36; Admin Dose 0.1 MG; Start 09/02/17 at 21:30 Epoetin Bo (Epogen (Esrd)) 2,000 units MoWeFr@17 SC Last administered on 19:36; Admin Dose 2,000 UNITS; Start 09/05/17 at 17:00 Epoetin Bo (Epogen (Esrd)) 3,000 units MoWeFr@17 SC Last administered on 17:00; Admin Dose 3,000 UNITS; Start 09/05/17 at 17:00 Insulin Glargine (Lantus) 10 unit DAILY SC Last administered on 09/14/17 08: 52; Admin Dose 10 UNIT; Start 09/08/17 at 09:00 Metoprolol Tartrate (Lopressor) 75 mg BID GTB Last administered on 09/13/17 20:52; Admin Dose 75 MG; Start 09/10/17 at 21:00 Collagenase (Santyl) 1 applic DAILY TOP Last administered on 09/14/17 08:50; Admin Dose 1 APPLIC; Start 09/11/17 at 09:00 ODETTE MCKEON Sep 14, 2017 12:04
--- NOTE | 2017-09-14 13:01 | CONS ---
Date/Time of Note Date/Time of Note DATE: 09/14/17 TIME: 12:57 Assessment/Plan Assessment/Plan Chief Complaint/Hosp Course IMPRESSION: 1. Positive troponin-in the setting of renal failure-No sig uptrend 2. Abnormal electrocardiogram, nonspecific ST-T abnormalities. 3. Hypertension-currently reasonable 4. Respiratory failure, chronic. 5. Renal failure, acute on chronic. 6. Dysphagia, status post G-tube. 7. Anemia-ongoing 8. Thrombocytopenia-improved 9. Encephalopathy. 10. History of CVA. 11. Diabetes mellitus. 12. Hypokalemia 14. Cardiomyopathy-depressed EF 40% Recc: -Tele -Continue BB/ACEI -follow volume status with HD for volume removal -Continue asa -Continue abx's and f/u cx data Problems: Consultation Date/Type/Reason Admit Date/Time Aug 20, 2017 at 17:03 Initial Consult Date 08/20/17 Type of Consultation: cardiology Reason for Consultation positive troponin Referring Provider: LEILA GARCIA Exam/Review of Systems Vital Signs Vitals Vital Signs Date Time Temp Pulse Resp B/P Pulse Ox O2 Delivery O2 Flow Rate FiO2 09/14/17 12:46 77 09/14/17 12:41 24 100 30 09/14/17 11:42 98.8 163/76 09/11/17 15:54 Mechanical Ventilator Intake and Output 09/13/17 09/13/17 09/14/17 15:00 23:00 07:00 Intake Total 580 ml 540 ml Balance 580 ml 540 ml Exam Review of Systems: CONSTITUTIONAL: No fevers, chills. PULMONARY: No sob CARDIOVASCULAR: No chest pain/palpitations GASTROINTESTINAL: No nausea/vomiting. GENITOURINARY: No hematuria/dysuria. MUSCULOSKELETAL: No myagias/arthalgias. PSYCHIATRIC: The patient denies depression. NEUROLOGIC: encephalopathic Constitutional: other (encephalopathic) Psych: no complaints Head: normocephalic ENMT: mucosa pink and moist Neck: other (trached) Respiratory: other (upper airway rhoncherous sounds) Cardiovascular: regular rate and rhythm Gastrointestinal: non-tender, soft Musculoskeletal: muscle weakness (geeneralized) Extremities: pitting pedal edema (bilateral) Neurological: other (No focal deficits) Results Result Diagram: 09/14/17 0610 09/14/17 0610 Results 24 hrs Laboratory Tests Test 09/13/17 13:02 09/13/17 18:02 09/13/17 20:55 09/14/17 01:08 Bedside Glucose 99 64 L 88 99 Test 09/14/17 05:07 09/14/17 06:10 09/14/17 08:46 09/14/17 12:47 Bedside Glucose 135 165 129 White Blood Count 6.0 # Red Blood Count 3.08 L Hemoglobin 8.7 L Hematocrit 28.0 L Mean Corpuscular Volume 90.9 Mean Corpuscular Hemoglobin 28.2 L Mean Corpuscular Hemoglobin Concent 31.1 L Red Cell Distribution Width 14.6 H Platelet Count 197 Mean Platelet Volume 9.7 Neutrophils % 56.5 Lymphocytes % 27.6 Monocytes % 7.8 Eosinophils % 7.2 H Basophils % 0.7 Nucleated Red Blood Cells % 0.0 Neutrophils # 3.4 Lymphocytes # 1.7 Monocytes # 0.5 Eosinophils # 0.4 Basophils # 0.0 Nucleated Red Blood Cells # 0.0 Sodium Level 138 Potassium Level 4.5 Chloride Level 100 Carbon Dioxide Level 30 Anion Gap 13 Blood Urea Nitrogen 36 H Creatinine 3.78 H Glucose Level 122 Calcium Level 7.6 L Medications Medications Current Medications Diagnostic Test (Pha) (Accu-Chek) 1 ea 02 XX Last administered on 09/14/17 02 :01; Admin Dose 1 EA; Start 08/23/17 at 02:00 Miscellaneous Information 1 ea NOTE XX ; Start 08/22/17 at 13:30 Glucose (Glutose) 15 gm Q15M PRN PO DECREASED GLUCOSE; Start 08/22/17 at 13:30 Glucose (Glutose) 22.5 gm Q15M PRN PO DECREASED GLUCOSE; Start 08/22/17 at 13: 30 Dextrose (D50w Syringe) 25 ml Q15M PRN IV DECREASED GLUCOSE Last administered on 09/13/17 18:10; Admin Dose 25 ML; Start 08/22/17 at 13:30 Dextrose (D50w Syringe) 50 ml Q15M PRN IV DECREASED GLUCOSE Last administered on 09/12/17 12:27; Admin Dose 50 ML; Start 08/22/17 at 13:30 Glucagon (Glucagen) 1 mg Q15M PRN IM DECREASED GLUCOSE; Start 08/22/17 at 13:30 Glucose (Glutose) 15 gm Q15M PRN BUCCAL DECREASED GLUCOSE; Start 08/22/17 at 13 :30 Sodium Hypochlorite (Dakin'S (Dilute 1/40%)) 1 applic BID IRR Last administered on 09/14/17 08:48; Admin Dose 1 APPLIC; Start 08/23/17 at 09:00 Acetaminophen (Tylenol Tab) 500 mg Q4H PRN PO PAIN AND OR ELEVATED TEMP Last administered on 08/27/17 01:27; Admin Dose 500 MG; Start 08/25/17 at 12:00 Morphine Sulfate (morphine) 2 mg Q4H PRN IV PAIN LEVEL 4-6 Last administered on 09/03/17 20:38; Admin Dose 2 MG; Start 08/25/17 at 12:00 Lansoprazole (Prevacid) 30 mg DAILY@06 GTB Last administered on 09/14/17 06: 42; Admin Dose 30 MG; Start 08/29/17 at 06:00 Insulin Aspart (Novolog Insulin Pen) (Adult SC Insulin - Mild Algorithm)... Q4 SC Last administered on 09/14/17 08:53; Admin Dose 1 UNIT; Start 08/31/17 at 16:00 Lisinopril (Zestril) 20 mg BID PO Last administered on 09/13/17 20:52; Admin Dose 20 MG; Start 09/02/17 at 21:00 Clonidine (Catapres) 0.1 mg Q6H PRN GTB ELEVATED SYSTOLIC BP Last administered on 09/13/17 04:36; Admin Dose 0.1 MG; Start 09/02/17 at 21:30 Epoetin Bo (Epogen (Esrd)) 2,000 units MoWeFr@17 SC Last administered on 19:36; Admin Dose 2,000 UNITS; Start 09/05/17 at 17:00 Epoetin Bo (Epogen (Esrd)) 3,000 units MoWeFr@17 SC Last administered on 17:00; Admin Dose 3,000 UNITS; Start 09/05/17 at 17:00 Insulin Glargine (Lantus) 10 unit DAILY SC Last administered on 09/14/17 08: 52; Admin Dose 10 UNIT; Start 09/08/17 at 09:00 Metoprolol Tartrate (Lopressor) 75 mg BID GTB Last administered on 09/13/17 20:52; Admin Dose 75 MG; Start 09/10/17 at 21:00 Collagenase (Santyl) 1 applic DAILY TOP Last administered on 09/14/17 08:50; Admin Dose 1 APPLIC; Start 09/11/17 at 09:00 BRENTON NORTON Sep 14, 2017 13:01
--- NOTE | 2017-09-14 14:39 | PN ---
Date/Time of Note Date/Time of Note DATE: 09/14/17 TIME: 14:38 Assessment/Plan VTE Prophylaxis VTE Prophylaxis Intervention: SCD's Lines/Catheters IV [facility]ter Type (from [email or web address] PICC Line Central line still needed: Yes Urinary Cath still in place: No Assessment/Plan Chief Complaint/Hosp Course Patient remains hemodynamically stable, no acute events overnight. Assessment/Plan -Acute on chronic CKD. Continue hemodialysis. S/p permacath placement. Dr. Nieto is following in nephrology consultation. -Ventilator dependent respiratory failure with tracheostomy. -Pulmonary edema versus multifocal pneumonia, status post treatment with antibiotics. Dr Hill is following in infection disease consultation -Positive troponin in the setting of renal disease, Dr. Zuniga is following in cardiology consultation -Acute metabolic encephalopathy -Anemia, s/p blood transfusion, continue Epogen, continue to monitor hemoglobin and hematocrit -DM, continue Lantus, NovoLog per sliding scale. -Dysphagia with PEG -Sacral wound, Dr. Worthy is following in general surgery consultation. Continue current wound care, pending wound debridement. Further recommendations based on clinical course. Plan of care discussed with Dr. Chávez. Problems: Exam/Review of Systems Vital Signs Vitals Vital Signs Date Time Temp Pulse Resp B/P Pulse Ox O2 Delivery O2 Flow Rate FiO2 09/14/17 12:46 77 09/14/17 12:41 24 100 30 09/14/17 11:42 98.8 163/76 09/11/17 15:54 Mechanical Ventilator Intake and Output 09/13/17 09/13/17 09/14/17 15:00 23:00 07:00 Intake Total 580 ml 540 ml Balance 580 ml 540 ml Exam Constitutional: non-verbal Head: normocephalic Neck: supple Respiratory: diminished breath sounds Cardiovascular: nl pulses Gastrointestinal: non-tender, other (G-tube), soft Extremities: edema Results Result Diagram: 09/14/17 0610 09/14/17 0610 Results 24 hrs Laboratory Tests Test 09/13/17 18:02 09/13/17 20:55 09/14/17 01:08 09/14/17 05:07 Bedside Glucose 64 L 88 99 135 Test 09/14/17 06:10 09/14/17 08:46 09/14/17 12:47 White Blood Count 6.0 # Red Blood Count 3.08 L Hemoglobin 8.7 L Hematocrit 28.0 L Mean Corpuscular Volume 90.9 Mean Corpuscular Hemoglobin 28.2 L Mean Corpuscular Hemoglobin Concent 31.1 L Red Cell Distribution Width 14.6 H Platelet Count 197 Mean Platelet Volume 9.7 Neutrophils % 56.5 Lymphocytes % 27.6 Monocytes % 7.8 Eosinophils % 7.2 H Basophils % 0.7 Nucleated Red Blood Cells % 0.0 Neutrophils # 3.4 Lymphocytes # 1.7 Monocytes # 0.5 Eosinophils # 0.4 Basophils # 0.0 Nucleated Red Blood Cells # 0.0 Sodium Level 138 Potassium Level 4.5 Chloride Level 100 Carbon Dioxide Level 30 Anion Gap 13 Blood Urea Nitrogen 36 H Creatinine 3.78 H Glucose Level 122 Calcium Level 7.6 L Bedside Glucose 165 129 Medications Medications Current Medications Diagnostic Test (Pha) (Accu-Chek) 1 ea 02 XX Last administered on 09/14/17 02 :01; Admin Dose 1 EA; Start 08/23/17 at 02:00 Miscellaneous Information 1 ea NOTE XX ; Start 08/22/17 at 13:30 Glucose (Glutose) 15 gm Q15M PRN PO DECREASED GLUCOSE; Start 08/22/17 at 13:30 Glucose (Glutose) 22.5 gm Q15M PRN PO DECREASED GLUCOSE; Start 08/22/17 at 13: 30 Dextrose (D50w Syringe) 25 ml Q15M PRN IV DECREASED GLUCOSE Last administered on 09/13/17 18:10; Admin Dose 25 ML; Start 08/22/17 at 13:30 Dextrose (D50w Syringe) 50 ml Q15M PRN IV DECREASED GLUCOSE Last administered on 09/12/17 12:27; Admin Dose 50 ML; Start 08/22/17 at 13:30 Glucagon (Glucagen) 1 mg Q15M PRN IM DECREASED GLUCOSE; Start 08/22/17 at 13:30 Glucose (Glutose) 15 gm Q15M PRN BUCCAL DECREASED GLUCOSE; Start 08/22/17 at 13 :30 Sodium Hypochlorite (Dakin'S (Dilute 1/40%)) 1 applic BID IRR Last administered on 09/14/17 08:48; Admin Dose 1 APPLIC; Start 08/23/17 at 09:00 Acetaminophen (Tylenol Tab) 500 mg Q4H PRN PO PAIN AND OR ELEVATED TEMP Last administered on 08/27/17 01:27; Admin Dose 500 MG; Start 08/25/17 at 12:00 Morphine Sulfate (morphine) 2 mg Q4H PRN IV PAIN LEVEL 4-6 Last administered on 09/03/17 20:38; Admin Dose 2 MG; Start 08/25/17 at 12:00 Lansoprazole (Prevacid) 30 mg DAILY@06 GTB Last administered on 09/14/17 06: 42; Admin Dose 30 MG; Start 08/29/17 at 06:00 Insulin Aspart (Novolog Insulin Pen) (Adult SC Insulin - Mild Algorithm)... Q4 SC Last administered on 09/14/17 08:53; Admin Dose 1 UNIT; Start 08/31/17 at 16:00 Lisinopril (Zestril) 20 mg BID PO Last administered on 09/13/17 20:52; Admin Dose 20 MG; Start 09/02/17 at 21:00 Clonidine (Catapres) 0.1 mg Q6H PRN GTB ELEVATED SYSTOLIC BP Last administered on 09/13/17 04:36; Admin Dose 0.1 MG; Start 09/02/17 at 21:30 Epoetin Bo (Epogen (Esrd)) 2,000 units MoWeFr@17 SC Last administered on 19:36; Admin Dose 2,000 UNITS; Start 09/05/17 at 17:00 Epoetin Bo (Epogen (Esrd)) 3,000 units MoWeFr@17 SC Last administered on 17:00; Admin Dose 3,000 UNITS; Start 09/05/17 at 17:00 Insulin Glargine (Lantus) 10 unit DAILY SC Last administered on 09/14/17 08: 52; Admin Dose 10 UNIT; Start 09/08/17 at 09:00 Metoprolol Tartrate (Lopressor) 75 mg BID GTB Last administered on 09/13/17 20:52; Admin Dose 75 MG; Start 09/10/17 at 21:00 Collagenase (Santyl) 1 applic DAILY TOP Last administered on 09/14/17 08:50; Admin Dose 1 APPLIC; Start 09/11/17 at 09:00 ARLETH MCKNIGHT Sep 14, 2017 14:39
--- NOTE | 2017-09-14 15:35 | PN ---
Date/Time of Note Date/Time of Note DATE: 09/14/17 TIME: 15:31 Assessment/Plan Lines/Catheters Chun in [facility] (from [facility]): No Assessment/Plan Chief Complaint/Hosp Course 1. Sacral wound with mod drainage and odor: +wound cultures; still awaiting decision -Frequent turning and offloading -local care with dakins -debridement: left a message for son/decision maker; awaiting decision; in the interim can continue with local care -low airloss mattress -optimize nutrition -vitamin c/short term zinc 2. VRDF w pna: -cont vent management -pulm toilet -abx per ID 3. Acute on chronic kidney disease:on HD -per renal -limit nephrotoxic meds -HD per renal 4. Anemia: no acute bleed noted -monitor and transfuse prn 5. Dysphagia w tf -continue tf w aspiration precautions 6. Diabetes: with episode of hypoglycemia today -blood sugar optimization Thank you. Patient seen and examined in collaboration w Dr. Sukumar Worthy. Problems: Subjective 24 Hr Interval Summary Awaiting consent from decision maker for debridement. Appears comfortable on vent. No fevers, congested cough, change of tele rhythm, v/d. Exam/Review of Systems Vital Signs Vitals Vital Signs Date Time Temp Pulse Resp B/P Pulse Ox O2 Delivery O2 Flow Rate FiO2 09/14/17 12:46 77 09/14/17 12:41 24 100 30 09/14/17 11:42 98.8 163/76 09/11/17 15:54 Mechanical Ventilator Intake and Output 09/13/17 09/13/17 09/14/17 15:00 23:00 07:00 Intake Total 580 ml 540 ml Balance 580 ml 540 ml Exam Free Text/Dictation Constitutional: other (somnolent, opens eyes with stimuli), No distress Psych: other (flat) Head: atraumatic, normocephalic Eyes: nl lids, nl sclera ENMT: mucosa pink and moist Neck: other (trach) Respiratory: other (vent), No congested cough, No labored breathing Cardiovascular: nl pulses, regular rate and rhythm (sr) Gastrointestinal: soft, No distended (peg) Musculoskeletal: muscle weakness (stiffness), No nl gait and stance Extremities: normal pulses; bilat pedal edema Neurological: No nl speech, No nl strength Skin: other (sacrum with improved odor and large drainage) Results Result Diagram: 09/14/17 0610 09/14/17 0610 KAMILLA KEATING NP Sep 14, 2017 15:35
--- NOTE | 2017-09-14 17:15 | CONS ---
Date/Time of Note Date/Time of Note DATE: 09/14/17 TIME: 17:15 Assessment/Plan Assessment/Plan Additional Assessment/Plan 1. Sepsis due to PNA 2. Acute on chronic renal failure - with severe metabolic acidosis and acute uremic encephalopathy- pt is anuric, started on HD during this admission 3. AMS due to acute uremic encephalopathy + acute metabolic encephalopathy 3. H/o recent admission to [place] for renal failure 4. H/o chronic resp failure s/p tracheostomy 5. HTN 6. H/o CVA with residual weakness 7.. IDDM 8. Anemia,severe, anemia of chronic disease, 9. 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 Outpatient HD placement is [facility] IV abx as per ID will follow up Consultation Date/Type/Reason Admit Date/Time Aug 20, 2017 at 17:03 Initial Consult Date 08/20/17 Type of Consultation: NEPHROLOGY Referring Provider: LEILA GARCIA Exam/Review of Systems Vital Signs Vitals Vital Signs Date Time Temp Pulse Resp B/P Pulse Ox O2 Delivery O2 Flow Rate FiO2 09/14/17 16:33 105 09/14/17 12:41 24 100 30 09/14/17 11:42 98.8 163/76 09/11/17 15:54 Mechanical Ventilator Intake and Output 09/13/17 09/13/17 09/14/17 15:00 23:00 07:00 Intake Total 580 ml 540 ml Balance 580 ml 540 ml Exam Constitutional: non-verbal ENMT: other (+ tracheostomy on ventilator ) Respiratory: congested cough, crackles/rales, diminished breath sounds Cardiovascular: S3, regular rate and rhythm Gastrointestinal: non-tender, soft Musculoskeletal: other (2+ pittign edema ), swelling Neurological: other (non verbal , pt is s/p tracheostomy on ventilator ) Results Result Diagram: 09/14/17 0610 09/14/17 0610 Results 24 hrs Laboratory Tests Test 09/13/17 18:02 09/13/17 20:55 09/14/17 01:08 09/14/17 05:07 Bedside Glucose 64 L 88 99 135 Test 09/14/17 06:10 09/14/17 08:46 09/14/17 12:47 White Blood Count 6.0 # Red Blood Count 3.08 L Hemoglobin 8.7 L Hematocrit 28.0 L Mean Corpuscular Volume 90.9 Mean Corpuscular Hemoglobin 28.2 L Mean Corpuscular Hemoglobin Concent 31.1 L Red Cell Distribution Width 14.6 H Platelet Count 197 Mean Platelet Volume 9.7 Neutrophils % 56.5 Lymphocytes % 27.6 Monocytes % 7.8 Eosinophils % 7.2 H Basophils % 0.7 Nucleated Red Blood Cells % 0.0 Neutrophils # 3.4 Lymphocytes # 1.7 Monocytes # 0.5 Eosinophils # 0.4 Basophils # 0.0 Nucleated Red Blood Cells # 0.0 Sodium Level 138 Potassium Level 4.5 Chloride Level 100 Carbon Dioxide Level 30 Anion Gap 13 Blood Urea Nitrogen 36 H Creatinine 3.78 H Glucose Level 122 Calcium Level 7.6 L Bedside Glucose 165 129 Medications Medications Current Medications Diagnostic Test (Pha) (Accu-Chek) 1 ea 02 XX Last administered on 09/14/17 02 :01; Admin Dose 1 EA; Start 08/23/17 at 02:00 Miscellaneous Information 1 ea NOTE XX ; Start 08/22/17 at 13:30 Glucose (Glutose) 15 gm Q15M PRN PO DECREASED GLUCOSE; Start 08/22/17 at 13:30 Glucose (Glutose) 22.5 gm Q15M PRN PO DECREASED GLUCOSE; Start 08/22/17 at 13: 30 Dextrose (D50w Syringe) 25 ml Q15M PRN IV DECREASED GLUCOSE Last administered on 09/13/17 18:10; Admin Dose 25 ML; Start 08/22/17 at 13:30 Dextrose (D50w Syringe) 50 ml Q15M PRN IV DECREASED GLUCOSE Last administered on 09/12/17 12:27; Admin Dose 50 ML; Start 08/22/17 at 13:30 Glucagon (Glucagen) 1 mg Q15M PRN IM DECREASED GLUCOSE; Start 08/22/17 at 13:30 Glucose (Glutose) 15 gm Q15M PRN BUCCAL DECREASED GLUCOSE; Start 08/22/17 at 13 :30 Sodium Hypochlorite (Dakin'S (Dilute 1/40%)) 1 applic BID IRR Last administered on 09/14/17 08:48; Admin Dose 1 APPLIC; Start 08/23/17 at 09:00 Acetaminophen (Tylenol Tab) 500 mg Q4H PRN PO PAIN AND OR ELEVATED TEMP Last administered on 08/27/17 01:27; Admin Dose 500 MG; Start 08/25/17 at 12:00 Morphine Sulfate (morphine) 2 mg Q4H PRN IV PAIN LEVEL 4-6 Last administered on 09/03/17 20:38; Admin Dose 2 MG; Start 08/25/17 at 12:00 Lansoprazole (Prevacid) 30 mg DAILY@06 GTB Last administered on 09/14/17 06: 42; Admin Dose 30 MG; Start 08/29/17 at 06:00 Insulin Aspart (Novolog Insulin Pen) (Adult SC Insulin - Mild Algorithm)... Q4 SC Last administered on 09/14/17 08:53; Admin Dose 1 UNIT; Start 08/31/17 at 16:00 Lisinopril (Zestril) 20 mg BID PO Last administered on 09/13/17 20:52; Admin Dose 20 MG; Start 09/02/17 at 21:00 Clonidine (Catapres) 0.1 mg Q6H PRN GTB ELEVATED SYSTOLIC BP Last administered on 09/13/17 04:36; Admin Dose 0.1 MG; Start 09/02/17 at 21:30 Epoetin Bo (Epogen (Esrd)) 2,000 units MoWeFr@17 SC Last administered on 19:36; Admin Dose 2,000 UNITS; Start 09/05/17 at 17:00 Epoetin Bo (Epogen (Esrd)) 3,000 units MoWeFr@17 SC Last administered on 17:00; Admin Dose 3,000 UNITS; Start 09/05/17 at 17:00 Insulin Glargine (Lantus) 10 unit DAILY SC Last administered on 09/14/17 08: 52; Admin Dose 10 UNIT; Start 09/08/17 at 09:00 Metoprolol Tartrate (Lopressor) 75 mg BID GTB Last administered on 09/13/17 20:52; Admin Dose 75 MG; Start 09/10/17 at 21:00 Collagenase (Santyl) 1 applic DAILY TOP Last administered on 09/14/17t 08:50; Admin Dose 1 APPLIC; Start 09/11/17 at 09:00 LUCILLE CABALLERO MD Sep 14, 2017 17:15
[2017-09-14] MEDS: EPOETIN 2000 UNITS/1 ML INJ (ESRD) SC SCH (17:29)
[2017-09-14] MEDS: EPOETIN 3000 UNITS/1 ML INJ (ESRD) SC SCH (17:29)
[2017-09-15] VITALS (26 sets, daily range): BP systolic 134–178; BP diastolic 53–81; PULSE 75–84; RESP 16–24
[2017-09-15] MEDS: INSULIN ASPART [NOVOLOG] 3 ML PEN SC SCH ×6 (01:00→21:00)
[2017-09-15] MEDS: ACCU-CHEK XX SCH (02:00)
[2017-09-15] MEDS: LANSOPRAZOLE 30 MG CAP GTB SCH (06:09)
[2017-09-15] MEDS: COLLAGENASE 30 GM TUBE TOP SCH (08:49)
[2017-09-15] MEDS: INSULIN GLARGINE [LANtus] 3 ML PEN SC SCH (08:49)
[2017-09-15] MEDS: METOPROLOL 50 MG TAB GTB SCH ×2 (08:50→21:08)
[2017-09-15] MEDS: LISINOPRIL 20 MG TAB PO SCH ×2 (08:51→21:09)
[2017-09-15] MEDS: SODIUM HYPOCHLORITE 1/40% 1L IRRIG IRR SCH ×2 (08:51→21:15)
--- NOTE | 2017-09-15 12:03 | CONS ---
Date/Time of Note Date/Time of Note DATE: 09/15/17 TIME: 12:00 Assessment/Plan Assessment/Plan Additional Assessment/Plan Assessment and recommendations; 1. Patient admitted with extensive pneumonia and CHF. 2. Chronic renal failure now requiring hemodialysis. 3. Advanced dementia. 4. Chronic respiratory failure. Continue current supportive care. Prognosis is poor. Consider transfer [facility]. Consultation Date/Type/Reason Admit Date/Time Aug 20, 2017 at 17:03 Initial Consult Date 08/20/17 Type of Consultation: Pulmonary Referring Provider: LEILA GARCIA 24 HR Interval Summary Free Text/Dictation Patient's condition remains stable. Remains unresponsive though. Patient has remained hemodynamically stable. General exam; elderly male, on ventilator via tracheostomy, unresponsive, currently in no distress. Exam/Review of Systems Vital Signs Vitals Vital Signs Date Time Temp Pulse Resp B/P Pulse Ox O2 Delivery O2 Flow Rate FiO2 09/15/17 11:31 98.2 84 18 172/81 96 09/15/17 11:15 35 09/11/17 15:54 Mechanical Ventilator Intake and Output 09/14/17 09/14/17 09/15/17 15:00 23:00 07:00 Intake Total 500 ml 580 ml 540 ml Output Total 3000 ml 1 ml Balance -2500 ml 580 ml 539 ml Exam HEENT exam; supple neck, no JVD. No lymphadenopathy. Midline trachea. No thyromegaly. Tracheostomy in place. Chest exam; scattered crackles bilaterally. S1-S2 audible, no murmurs. Abdomen exam; soft, nondistended. G-tube in place. Bowel sounds audible. Extremity exam; no peripheral edema. CLINICAL PROJECT MANAGER exam; patient remains unresponsive. Results Result Diagram: 09/15/17 0609 09/15/17 0609 Results 24 hrs Laboratory Tests Test 09/14/17 12:47 09/14/17 17:26 09/14/17 21:26 09/15/17 01:21 Bedside Glucose 129 101 111 106 Test 09/15/17 05:04 09/15/17 06:09 09/15/17 08:45 Bedside Glucose 126 135 White Blood Count 5.9 Red Blood Count 3.17 L Hemoglobin 9.1 L Hematocrit 28.6 L Mean Corpuscular Volume 90.2 Mean Corpuscular Hemoglobin 28.7 L Mean Corpuscular Hemoglobin Concent 31.8 L Red Cell Distribution Width 14.6 H Platelet Count 176 Mean Platelet Volume 10.0 Neutrophils % 51.9 Lymphocytes % 31.5 Monocytes % 7.1 Eosinophils % 8.6 H Basophils % 0.7 Nucleated Red Blood Cells % 0.0 Neutrophils # 3.1 Lymphocytes # 1.9 Monocytes # 0.4 Eosinophils # 0.5 Basophils # 0.0 Nucleated Red Blood Cells # 0.0 Sodium Level 139 Potassium Level 4.1 Chloride Level 98 Carbon Dioxide Level 33 H Anion Gap 12 Blood Urea Nitrogen 28 H Creatinine 3.21 H Glucose Level 121 Calcium Level 8.2 L Medications Medications Current Medications Diagnostic Test (Pha) (Accu-Chek) 1 ea 02 XX Last administered on 09/15/17 02 :00; Admin Dose 1 EA; Start 08/23/17 at 02:00 Miscellaneous Information 1 ea NOTE XX ; Start 08/22/17 at 13:30 Glucose (Glutose) 15 gm Q15M PRN PO DECREASED GLUCOSE; Start 08/22/17 at 13:30 Glucose (Glutose) 22.5 gm Q15M PRN PO DECREASED GLUCOSE; Start 08/22/17 at 13: 30 Dextrose (D50w Syringe) 25 ml Q15M PRN IV DECREASED GLUCOSE Last administered on 09/13/17 18:10; Admin Dose 25 ML; Start 08/22/17 at 13:30 Dextrose (D50w Syringe) 50 ml Q15M PRN IV DECREASED GLUCOSE Last administered on 09/12/17 12:27; Admin Dose 50 ML; Start 08/22/17 at 13:30 Glucagon (Glucagen) 1 mg Q15M PRN IM DECREASED GLUCOSE; Start 08/22/17 at 13:30 Glucose (Glutose) 15 gm Q15M PRN BUCCAL DECREASED GLUCOSE; Start 08/22/17 at 13 :30 Sodium Hypochlorite (Dakin'S (Dilute 1/40%)) 1 applic BID IRR Last administered on 09/15/17 08:51; Admin Dose 1 APPLIC; Start 08/23/17 at 09:00 Acetaminophen (Tylenol Tab) 500 mg Q4H PRN PO PAIN AND OR ELEVATED TEMP Last administered on 08/27/17 01:27; Admin Dose 500 MG; Start 08/25/17 at 12:00 Morphine Sulfate (morphine) 2 mg Q4H PRN IV PAIN LEVEL 4-6 Last administered on 09/03/17 20:38; Admin Dose 2 MG; Start 08/25/17 at 12:00 Lansoprazole (Prevacid) 30 mg DAILY@06 GTB Last administered on 09/15/17 06: 09; Admin Dose 30 MG; Start 08/29/17 at 06:00 Insulin Aspart (Novolog Insulin Pen) (Adult SC Insulin - Mild Algorithm)... Q4 SC Last administered on 09/14/17 08:53; Admin Dose 1 UNIT; Start 08/31/17 at 16:00 Lisinopril (Zestril) 20 mg BID PO Last administered on 09/15/17 08:51; Admin Dose 20 MG; Start 09/02/17 at 21:00 Clonidine (Catapres) 0.1 mg Q6H PRN GTB ELEVATED SYSTOLIC BP Last administered on 09/13/17 04:36; Admin Dose 0.1 MG; Start 09/02/17 at 21:30 Epoetin Bo (Epogen (Esrd)) 2,000 units MoWeFr@17 SC Last administered on 17:29; Admin Dose 2,000 UNITS; Start 09/05/17 at 17:00 Epoetin Bo (Epogen (Esrd)) 3,000 units MoWeFr@17 SC Last administered on 17:29; Admin Dose 3,000 UNITS; Start 09/05/17 at 17:00 Insulin Glargine (Lantus) 10 unit DAILY SC Last administered on 09/15/17 08: 49; Admin Dose 10 UNIT; Start 09/08/17 at 09:00 Metoprolol Tartrate (Lopressor) 75 mg BID GTB Last administered on 09/15/17 08:50; Admin Dose 75 MG; Start 09/10/17 at 21:00 Collagenase (Santyl) 1 applic DAILY TOP Last administered on 09/15/17 08:49; Admin Dose 1 APPLIC; Start 09/11/17 at 09:00 ODETTE MCKEON Sep 15, 2017 12:03
--- NOTE | 2017-09-15 14:00 | PN ---
Date/Time of Note Date/Time of Note DATE: 09/15/17 TIME: 13:57 Assessment/Plan Lines/Catheters IV Catheter Type (from [facility]): nereida cath Chun in Place (from [facility]): No Assessment/Plan Chief Complaint/Hosp Course 1. Sacral wound with mod drainage and odor: +wound cultures; still awaiting decision from family -Frequent turning and offloading -local care with dakins -debridement: left a message for son/decision maker; awaiting decision; in the interim can continue with local care -low airloss mattress -optimize nutrition -vitamin c/short term zinc 2. VRDF w pna: -cont vent management -pulm toilet -abx per ID 3. Acute on chronic kidney disease:on HD -per renal -limit nephrotoxic meds -HD per renal 4. Anemia: no acute bleed noted -monitor and transfuse prn 5. Dysphagia w tf -continue tf w aspiration precautions 6. Diabetes: -blood sugar optimization Thank you. Patient seen and examined in collaboration w Dr. Sukumar Worthy. Problems: Subjective 24 Hr Interval Summary No acute changes. Non verbal indicators of pain not present. Appears comfortable on vent. No fevers, congested cough, change in tele rhythm, v/d. Exam/Review of Systems Vital Signs Vitals Vital Signs Date Time Temp Pulse Resp B/P Pulse Ox O2 Delivery O2 Flow Rate FiO2 09/15/17 13:20 77 24 96 35 09/15/17 11:31 98.2 172/81 09/11/17 15:54 Mechanical Ventilator Intake and Output 09/14/17 09/14/17 09/15/17 15:00 23:00 07:00 Intake Total 500 ml 580 ml 540 ml Output Total 3000 ml 1 ml Balance -2500 ml 580 ml 539 ml Exam Free Text/Dictation Constitutional: other (somnolent, opens eyes with stimuli), No distress Psych: other (flat) Head: atraumatic, normocephalic Eyes: nl lids, nl sclera ENMT: mucosa pink and moist Neck: other (trach) Respiratory: other (vent), No congested cough, No labored breathing Cardiovascular: nl pulses, regular rate and rhythm (sr) Gastrointestinal: soft, No distended (peg) Musculoskeletal: muscle weakness (stiffness), No nl gait and stance Extremities: normal pulses; bilat pedal edema Neurological: No nl speech, No nl strength Skin: other (sacrum with mind odor and mod drainage) Results Result Diagram: 09/15/17 0609 09/15/17 0609 KAMILLA KEATING NP Sep 15, 2017 14:00
--- NOTE | 2017-09-15 15:33 | PN ---
Date/Time of Note Date/Time of Note DATE: 09/15/17 TIME: 15:31 Assessment/Plan VTE Prophylaxis VTE Prophylaxis Intervention: other Lines/Catheters IV C[facility] Type (from [facility]): nereida cath Urinary Cath still in place: No Assessment/Plan Assessment/Plan -Acute on chronic CKD. Continue hemodialysis. S/p permacath placement. Dr. Nieto is following in nephrology consultation. -Ventilator dependent respiratory failure with tracheostomy. -Pulmonary edema versus multifocal pneumonia, status post treatment with antibiotics. Dr Hill is following in infection disease consultation -Positive troponin in the setting of renal disease, Dr. Zuniga is following in cardiology consultation -Acute metabolic encephalopathy -Anemia, s/p blood transfusion, continue Epogen, continue to monitor hemoglobin and hematocrit -DM, continue Lantus, NovoLog per sliding scale. -Dysphagia with PEG -Sacral wound, Dr. Worthy is following in general surgery consultation. Continue current wound care, pending wound debridement. Further recommendations based on clinical course. Plan of care discussed with Dr. Chávez. Exam/Review of Systems Vital Signs Vitals Vital Signs Date Time Temp Pulse Resp B/P Pulse Ox O2 Delivery O2 Flow Rate FiO2 09/15/17 13:20 77 24 96 35 09/15/17 11:31 98.2 172/81 09/11/17 15:54 Mechanical Ventilator Intake and Output 09/14/17 09/14/17 09/15/17 15:00 23:00 07:00 Intake Total 500 ml 580 ml 540 ml Output Total 3000 ml 1 ml Balance -2500 ml 580 ml 539 ml Results Result Diagram: 09/15/17 0609 09/15/17 0609 Results 24 hrs Laboratory Tests Test 09/14/17 17:26 09/14/17 21:26 09/15/17 01:21 09/15/17 05:04 Bedside Glucose 101 111 106 126 Test 09/15/17 06:09 09/15/17 08:45 09/15/17 12:47 White Blood Count 5.9 Red Blood Count 3.17 L Hemoglobin 9.1 L Hematocrit 28.6 L Mean Corpuscular Volume 90.2 Mean Corpuscular Hemoglobin 28.7 L Mean Corpuscular Hemoglobin Concent 31.8 L Red Cell Distribution Width 14.6 H Platelet Count 176 Mean Platelet Volume 10.0 Neutrophils % 51.9 Lymphocytes % 31.5 Monocytes % 7.1 Eosinophils % 8.6 H Basophils % 0.7 Nucleated Red Blood Cells % 0.0 Neutrophils # 3.1 Lymphocytes # 1.9 Monocytes # 0.4 Eosinophils # 0.5 Basophils # 0.0 Nucleated Red Blood Cells # 0.0 Sodium Level 139 Potassium Level 4.1 Chloride Level 98 Carbon Dioxide Level 33 H Anion Gap 12 Blood Urea Nitrogen 28 H Creatinine 3.21 H Glucose Level 121 Calcium Level 8.2 L Bedside Glucose 135 115 Medications Medications Current Medications Diagnostic Test (Pha) (Accu-Chek) 1 ea 02 XX Last administered on 09/15/17 02 :00; Admin Dose 1 EA; Start 08/23/17 at 02:00 Miscellaneous Information 1 ea NOTE XX ; Start 08/22/17 at 13:30 Glucose (Glutose) 15 gm Q15M PRN PO DECREASED GLUCOSE; Start 08/22/17 at 13:30 Glucose (Glutose) 22.5 gm Q15M PRN PO DECREASED GLUCOSE; Start 08/22/17 at 13: 30 Dextrose (D50w Syringe) 25 ml Q15M PRN IV DECREASED GLUCOSE Last administered on 09/13/17 18:10; Admin Dose 25 ML; Start 08/22/17 at 13:30 Dextrose (D50w Syringe) 50 ml Q15M PRN IV DECREASED GLUCOSE Last administered on 09/12/17 12:27; Admin Dose 50 ML; Start 08/22/17 at 13:30 Glucagon (Glucagen) 1 mg Q15M PRN IM DECREASED GLUCOSE; Start 08/22/17 at 13:30 Glucose (Glutose) 15 gm Q15M PRN BUCCAL DECREASED GLUCOSE; Start 08/22/17 at 13 :30 Sodium Hypochlorite (Dakin'S (Dilute 1/40%)) 1 applic BID IRR Last administered on 09/15/17 08:51; Admin Dose 1 APPLIC; Start 08/23/17 at 09:00 Acetaminophen (Tylenol Tab) 500 mg Q4H PRN PO PAIN AND OR ELEVATED TEMP Last administered on 08/27/17 01:27; Admin Dose 500 MG; Start 08/25/17 at 12:00 Morphine Sulfate (morphine) 2 mg Q4H PRN IV PAIN LEVEL 4-6 Last administered on 09/03/17 20:38; Admin Dose 2 MG; Start 08/25/17 at 12:00 Lansoprazole (Prevacid) 30 mg DAILY@06 GTB Last administered on 09/15/17 06: 09; Admin Dose 30 MG; Start 08/29/17 at 06:00 Insulin Aspart (Novolog Insulin Pen) (Adult SC Insulin - Mild Algorithm)... Q4 SC Last administered on 09/14/17 08:53; Admin Dose 1 UNIT; Start 08/31/17 at 16:00 Lisinopril (Zestril) 20 mg BID PO Last administered on 09/15/17 08:51; Admin Dose 20 MG; Start 09/02/17 at 21:00 Clonidine (Catapres) 0.1 mg Q6H PRN GTB ELEVATED SYSTOLIC BP Last administered on 09/13/17 04:36; Admin Dose 0.1 MG; Start 09/02/17 at 21:30 Epoetin Bo (Epogen (Esrd)) 2,000 units MoWeFr@17 SC Last administered on 17:29; Admin Dose 2,000 UNITS; Start 09/05/17 at 17:00 Epoetin Bo (Epogen (Esrd)) 3,000 units MoWeFr@17 SC Last administered on 17:29; Admin Dose 3,000 UNITS; Start 09/05/17 at 17:00 Insulin Glargine (Lantus) 10 unit DAILY SC Last administered on 09/15/17 08: 49; Admin Dose 10 UNIT; Start 09/08/17 at 09:00 Metoprolol Tartrate (Lopressor) 75 mg BID GTB Last administered on 09/15/17 08:50; Admin Dose 75 MG; Start 09/10/17 at 21:00 Collagenase (Santyl) 1 applic DAILY TOP Last administered on 09/15/17 08:49; Admin Dose 1 APPLIC; Start 09/11/17 at 09:00 LEILA GARCIA Sep 15, 2017 15:33
--- NOTE | 2017-09-15 17:25 | CONS ---
Date/Time of Note Date/Time of Note DATE: 09/15/17 TIME: 17:24 Assessment/Plan Assessment/Plan Additional Assessment/Plan 1. Sepsis due to PNA 2. Acute on chronic renal failure - with severe metabolic acidosis and acute uremic encephalopathy- pt is anuric, started on HD during this admission 3. AMS due to acute uremic encephalopathy + acute metabolic encephalopathy 3. H/o recent admission to [place] for renal failure 4. H/o chronic resp failure s/p tracheostomy 5. HTN 6. H/o CVA with residual weakness 7.. IDDM 8. Anemia,severe, anemia of chronic disease, 9. RLE swelling Plan: started on HD during this admission,- s/p permacath placement now- on Tuesday, tuesday and Tuesday schedule now , HD ordered for tomorrow leg swelling but US neg for DVT US RLE negative for DVT Hepatitis panel, HIV negative pt will be intermediate HD patient Outpatient HD placement is pending- difficult placement [facility] HD center can not accept pt IV abx as per ID will follow up Consultation Date/Type/Reason Admit Date/Time Aug 20, 2017 at 17:03 Initial Consult Date 08/20/17 Type of Consultation: NEPHROLOGY Referring Provider: LEILA GARCIA 24 HR Interval Summary Free Text/Dictation stable, Plan for HD tomorrow Exam/Review of Systems Vital Signs Vitals Vital Signs Date Time Temp Pulse Resp B/P Pulse Ox O2 Delivery O2 Flow Rate FiO2 09/15/17 16:26 80 09/15/17 15:46 98.8 18 178/81 97 09/15/17 15:20 35 09/11/17 15:54 Mechanical Ventilator Intake and Output 09/14/17 09/14/17 09/15/17 15:00 23:00 07:00 Intake Total 500 ml 580 ml 540 ml Output Total 3000 ml 1 ml Balance -2500 ml 580 ml 539 ml Exam Constitutional: non-verbal ENMT: other (+ tracheostomy on ventilator ) Respiratory: congested cough, crackles/rales, diminished breath sounds Cardiovascular: S3, regular rate and rhythm Gastrointestinal: non-tender, soft Musculoskeletal: other (2+ pittign edema ), swelling Neurological: other (non verbal , pt is s/p tracheostomy on ventilator ) Results Result Diagram: 09/15/17 0609 09/15/17 06 Results 24 hrs Laboratory Tests Test 09/14/17 17:26 09/14/17 21:26 09/15/17 01:21 09/15/17 05:04 Bedside Glucose 101 111 106 126 Test 09/15/17 06:09 09/15/17 08:45 09/15/17 12:47 09/15/17 17:03 White Blood Count 5.9 Red Blood Count 3.17 L Hemoglobin 9.1 L Hematocrit 28.6 L Mean Corpuscular Volume 90.2 Mean Corpuscular Hemoglobin 28.7 L Mean Corpuscular Hemoglobin Concent 31.8 L Red Cell Distribution Width 14.6 H Platelet Count 176 Mean Platelet Volume 10.0 Neutrophils % 51.9 Lymphocytes % 31.5 Monocytes % 7.1 Eosinophils % 8.6 H Basophils % 0.7 Nucleated Red Blood Cells % 0.0 Neutrophils # 3.1 Lymphocytes # 1.9 Monocytes # 0.4 Eosinophils # 0.5 Basophils # 0.0 Nucleated Red Blood Cells # 0.0 Sodium Level 139 Potassium Level 4.1 Chloride Level 98 Carbon Dioxide Level 33 H Anion Gap 12 Blood Urea Nitrogen 28 H Creatinine 3.21 H Glucose Level 121 Calcium Level 8.2 L Bedside Glucose 135 115 80 Medications Medications Current Medications Diagnostic Test (Pha) (Accu-Chek) 1 ea 02 XX Last administered on 09/15/17 02 :00; Admin Dose 1 EA; Start 08/23/17 at 02:00 Miscellaneous Information 1 ea NOTE XX ; Start 08/22/17 at 13:30 Glucose (Glutose) 15 gm Q15M PRN PO DECREASED GLUCOSE; Start 08/22/17 at 13:30 Glucose (Glutose) 22.5 gm Q15M PRN PO DECREASED GLUCOSE; Start 08/22/17 at 13: 30 Dextrose (D50w Syringe) 25 ml Q15M PRN IV DECREASED GLUCOSE Last administered on 09/13/17 18:10; Admin Dose 25 ML; Start 08/22/17 at 13:30 Dextrose (D50w Syringe) 50 ml Q15M PRN IV DECREASED GLUCOSE Last administered on 09/12/17 12:27; Admin Dose 50 ML; Start 08/22/17 at 13:30 Glucagon (Glucagen) 1 mg Q15M PRN IM DECREASED GLUCOSE; Start 08/22/17 at 13:30 Glucose (Glutose) 15 gm Q15M PRN BUCCAL DECREASED GLUCOSE; Start 08/22/17 at 13 :30 Sodium Hypochlorite (Dakin'S (Dilute 1/40%)) 1 applic BID IRR Last administered on 09/15/17 08:51; Admin Dose 1 APPLIC; Start 08/23/17 at 09:00 Acetaminophen (Tylenol Tab) 500 mg Q4H PRN PO PAIN AND OR ELEVATED TEMP Last administered on 08/27/17 01:27; Admin Dose 500 MG; Start 08/25/17 at 12:00 Morphine Sulfate (morphine) 2 mg Q4H PRN IV PAIN LEVEL 4-6 Last administered on 09/03/17 20:38; Admin Dose 2 MG; Start 08/25/17 at 12:00 Lansoprazole (Prevacid) 30 mg DAILY@06 GTB Last administered on 09/15/17 06: 09; Admin Dose 30 MG; Start 08/29/17 at 06:00 Insulin Aspart (Novolog Insulin Pen) (Adult SC Insulin - Mild Algorithm)... Q4 SC Last administered on 09/14/17 08:53; Admin Dose 1 UNIT; Start 08/31/17 at 16:00 Lisinopril (Zestril) 20 mg BID PO Last administered on 09/15/17 08:51; Admin Dose 20 MG; Start 09/02/17 at 21:00 Clonidine (Catapres) 0.1 mg Q6H PRN GTB ELEVATED SYSTOLIC BP Last administered on 09/13/17 04:36; Admin Dose 0.1 MG; Start 09/02/17 at 21:30 Epoetin Bo (Epogen (Esrd)) 2,000 units MoWeFr@17 SC Last administered on 17:29; Admin Dose 2,000 UNITS; Start 09/05/17 at 17:00 Epoetin Bo (Epogen (Esrd)) 3,000 units MoWeFr@17 SC Last administered on 17:29; Admin Dose 3,000 UNITS; Start 09/05/17 at 17:00 Insulin Glargine (Lantus) 10 unit DAILY SC Last administered on 09/15/17 08: 49; Admin Dose 10 UNIT; Start 09/08/17 at 09:00 Metoprolol Tartrate (Lopressor) 75 mg BID GTB Last administered on 09/15/17 08:50; Admin Dose 75 MG; Start 09/10/17 at 21:00 Collagenase (Santyl) 1 applic DAILY TOP Last administered on 09/15/17 08:49; Admin Dose 1 APPLIC; Start 09/11/17 at 09:00 LUCILLE CABALLERO MD Sep 15, 2017 17:25
--- NOTE | 2017-09-15 18:45 | CONS ---
Date/Time of Note Date/Time of Note DATE: 09/15/17 TIME: 18:39 Assessment/Plan Assessment/Plan Chief Complaint/Hosp Course IMPRESSION: 1. Positive troponin-in the setting of renal failure-No sig uptrend 2. Abnormal electrocardiogram, nonspecific ST-T abnormalities. 3. Hypertension-uncontrolled 4. Respiratory failure, chronic. 5. Renal failure, acute on chronic. 6. Dysphagia, status post G-tube. 7. Anemia-ongoing 8. Thrombocytopenia-improved 9. Encephalopathy. 10. History of CVA. 11. Diabetes mellitus. 12. Hypokalemia 14. Cardiomyopathy-depressed EF 40% Recc: -Tele -Continue BB/ACEI -start clonidine TTS to improve BP -follow volume status with HD for volume removal -Continue asa -Continue abx's and f/u cx data Problems: Consultation Date/Type/Reason Admit Date/Time Aug 20, 2017 at 17:03 Initial Consult Date 08/20/17 Type of Consultation: cardiology Reason for Consultation chf Referring Provider: LEILA GARCIA Exam/Review of Systems Vital Signs Vitals Vital Signs Date Time Temp Pulse Resp B/P Pulse Ox O2 Delivery O2 Flow Rate FiO2 09/15/17 17:10 84 24 97 35 09/15/17 15:46 98.8 178/81 09/11/17 15:54 Mechanical Ventilator Intake and Output 09/14/17 09/14/17 09/15/17 15:00 23:00 07:00 Intake Total 500 ml 580 ml 540 ml Output Total 3000 ml 1 ml Balance -2500 ml 580 ml 539 ml Exam Review of Systems: CONSTITUTIONAL: No fevers, chills. PULMONARY: No sob CARDIOVASCULAR: No chest pain/palpitations GASTROINTESTINAL: No nausea/vomiting. GENITOURINARY: No hematuria/dysuria. MUSCULOSKELETAL: No myagias/arthalgias. PSYCHIATRIC: The patient denies depression. NEUROLOGIC: No weakness Constitutional: alert, oriented Psych: no complaints Head: normocephalic ENMT: mucosa pink and moist Neck: jvd (9 cm water), supple Respiratory: diminished breath sounds Cardiovascular: regular rate and rhythm Gastrointestinal: non-tender, soft Musculoskeletal: muscle tone (normal) Extremities: edema (none) Neurological: other (none) Results Result Diagram: 09/15/17 0609 09/15/17 0609 Results 24 hrs Laboratory Tests Test 09/14/17 21:26 09/15/17 01:21 09/15/17 05:04 09/15/17 06:09 Bedside Glucose 111 106 126 White Blood Count 5.9 Red Blood Count 3.17 L Hemoglobin 9.1 L Hematocrit 28.6 L Mean Corpuscular Volume 90.2 Mean Corpuscular Hemoglobin 28.7 L Mean Corpuscular Hemoglobin Concent 31.8 L Red Cell Distribution Width 14.6 H Platelet Count 176 Mean Platelet Volume 10.0 Neutrophils % 51.9 Lymphocytes % 31.5 Monocytes % 7.1 Eosinophils % 8.6 H Basophils % 0.7 Nucleated Red Blood Cells % 0.0 Neutrophils # 3.1 Lymphocytes # 1.9 Monocytes # 0.4 Eosinophils # 0.5 Basophils # 0.0 Nucleated Red Blood Cells # 0.0 Sodium Level 139 Potassium Level 4.1 Chloride Level 98 Carbon Dioxide Level 33 H Anion Gap 12 Blood Urea Nitrogen 28 H Creatinine 3.21 H Glucose Level 121 Calcium Level 8.2 L Test 09/15/17 08:45 09/15/17 12:47 09/15/17 17:03 Bedside Glucose 135 115 80 Medications Medications Current Medications Diagnostic Test (Pha) (Accu-Chek) 1 ea 02 XX Last administered on 09/15/17 02 :00; Admin Dose 1 EA; Start 08/23/17 at 02:00 Miscellaneous Information 1 ea NOTE XX ; Start 08/22/17 at 13:30 Glucose (Glutose) 15 gm Q15M PRN PO DECREASED GLUCOSE; Start 08/22/17 at 13:30 Glucose (Glutose) 22.5 gm Q15M PRN PO DECREASED GLUCOSE; Start 08/22/17 at 13: 30 Dextrose (D50w Syringe) 25 ml Q15M PRN IV DECREASED GLUCOSE Last administered on 09/13/17 18:10; Admin Dose 25 ML; Start 08/22/17 at 13:30 Dextrose (D50w Syringe) 50 ml Q15M PRN IV DECREASED GLUCOSE Last administered on 09/12/17 12:27; Admin Dose 50 ML; Start 08/22/17 at 13:30 Glucagon (Glucagen) 1 mg Q15M PRN IM DECREASED GLUCOSE; Start 08/22/17 at 13:30 Glucose (Glutose) 15 gm Q15M PRN BUCCAL DECREASED GLUCOSE; Start 08/22/17 at 13 :30 Sodium Hypochlorite (Dakin'S (Dilute 1/40%)) 1 applic BID IRR Last administered on 09/15/17 08:51; Admin Dose 1 APPLIC; Start 08/23/17 at 09:00 Acetaminophen (Tylenol Tab) 500 mg Q4H PRN PO PAIN AND OR ELEVATED TEMP Last administered on 08/27/17 01:27; Admin Dose 500 MG; Start 08/25/17 at 12:00 Morphine Sulfate (morphine) 2 mg Q4H PRN IV PAIN LEVEL 4-6 Last administered on 09/03/17 20:38; Admin Dose 2 MG; Start 08/25/17 at 12:00 Lansoprazole (Prevacid) 30 mg DAILY@06 GTB Last administered on 09/15/17 06: 09; Admin Dose 30 MG; Start 08/29/17 at 06:00 Insulin Aspart (Novolog Insulin Pen) (Adult SC Insulin - Mild Algorithm)... Q4 SC Last administered on 09/14/17 08:53; Admin Dose 1 UNIT; Start 08/31/17 at 16:00 Lisinopril (Zestril) 20 mg BID PO Last administered on 09/15/17 08:51; Admin Dose 20 MG; Start 09/02/17 at 21:00 Clonidine (Catapres) 0.1 mg Q6H PRN GTB ELEVATED SYSTOLIC BP Last administered on 09/13/17 04:36; Admin Dose 0.1 MG; Start 09/02/17 at 21:30 Epoetin Bo (Epogen (Esrd)) 2,000 units MoWeFr@17 SC Last administered on 17:29; Admin Dose 2,000 UNITS; Start 09/05/17 at 17:00 Epoetin Bo (Epogen (Esrd)) 3,000 units MoWeFr@17 SC Last administered on 17:29; Admin Dose 3,000 UNITS; Start 09/05/17 at 17:00 Insulin Glargine (Lantus) 10 unit DAILY SC Last administered on 09/15/17 08: 49; Admin Dose 10 UNIT; Start 09/08/17 at 09:00 Metoprolol Tartrate (Lopressor) 75 mg BID GTB Last administered on 09/15/17 08:50; Admin Dose 75 MG; Start 09/10/17 at 21:00 Collagenase (Santyl) 1 applic DAILY TOP Last administered on 09/15/17 08:49; Admin Dose 1 APPLIC; Start 09/11/17 at 09:00 BRENTON NORTON Sep 15, 2017 18:45
[2017-09-15] MEDS ORDERED: CLONIDINE 0.1 MG/24 HR PATCH TRANSDERM SCH (20:00)
[2017-09-16] VITALS (32 sets, daily range): BP systolic 125–160; BP diastolic 62–95; PULSE 69–112; RESP 16–24
[2017-09-16] MEDS: INSULIN ASPART [NOVOLOG] 3 ML PEN SC SCH ×6 (01:00→21:00)
[2017-09-16] MEDS: ACCU-CHEK XX SCH (01:37)
[2017-09-16] MEDS: LANSOPRAZOLE 30 MG CAP GTB SCH (05:36)
[2017-09-16] MEDS: LISINOPRIL 20 MG TAB PO SCH ×2 (09:00→21:51)
[2017-09-16] MEDS: METOPROLOL 50 MG TAB GTB SCH ×2 (09:00→21:51)
[2017-09-16] MEDS: SODIUM HYPOCHLORITE 1/40% 1L IRRIG IRR SCH ×2 (09:58→21:51)
[2017-09-16] MEDS: COLLAGENASE 30 GM TUBE TOP SCH (09:58)
[2017-09-16] MEDS: INSULIN GLARGINE [LANtus] 3 ML PEN SC SCH (10:47)
--- NOTE | 2017-09-16 11:32 | CONS ---
Date/Time of Note Date/Time of Note DATE: 09/16/17 TIME: 11:31 Assessment/Plan Assessment/Plan Additional Assessment/Plan Ventilator setting; AC of 24, tidal volume 450, PEEP of 5, 35% FiO2. Assessment and recommendations; 1. Patient admitted for severe bilateral pneumonia and pulmonary edema without any interval radiological improvement. However FiO2 has been decreased significantly now to 35%. 2. Anemia and thrombocytopenia. 3. Chronic renal failure now requiring hemodialysis. 4. Advanced dementia. 5. Chronic respiratory failure. Continue current supportive care. Prognosis is poor. Consultation Date/Type/Reason Admit Date/Time Aug 20, 2017 at 17:03 Initial Consult Date 08/20/17 Type of Consultation: Pulmonary Referring Provider: LEILA GARCIA 24 HR Interval Summary Free Text/Dictation Patient's condition remains stable. Has remained hemodynamically stable. Patient remains unresponsive. General exam; elderly male, on ventilator via tracheostomy, unresponsive, currently in no distress. Currently getting hemodialysis at bedside. Exam/Review of Systems Vital Signs Vitals Vital Signs Date Time Temp Pulse Resp B/P Pulse Ox O2 Delivery O2 Flow Rate FiO2 09/16/17 10:40 80 09/16/17 10:14 50 09/16/17 09:40 24 98 09/16/17 07:52 97.8 152/67 Intake and Output 09/15/17 09/15/17 09/16/17 15:00 23:00 07:00 Intake Total 580 ml 580 ml Balance 580 ml 580 ml Exam HEENT exam; supple neck, no JVD. No lymphadenopathy. Midline trachea. No thyromegaly. Tracheostomy in place. Chest exam; scattered crackles bilaterally. S1-S2 audible, no murmurs. Regular rhythm. Abdomen exam; soft, nondistended. No organomegaly. G-tube in place. Bowel sounds audible. Extremity exam; no peripheral edema. 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 Results Result Diagram: 09/16/17 0704 09/16/17 0706 Results 24 hrs Laboratory Tests Test 09/15/17 12:47 09/15/17 17:03 09/15/17 21:12 09/16/17 01:24 Bedside Glucose 115 80 93 117 Test 09/16/17 05:39 09/16/17 07:04 09/16/17 07:06 09/16/17 10:22 Bedside Glucose 126 140 White Blood Count 7.9 # Red Blood Count 3.01 L Hemoglobin 8.5 L Hematocrit 27.4 L Mean Corpuscular Volume 91.0 Mean Corpuscular Hemoglobin 28.2 L Mean Corpuscular Hemoglobin Concent 31.0 L Red Cell Distribution Width 14.6 H Platelet Count 158 Mean Platelet Volume 10.6 H Neutrophils % 64.5 Lymphocytes % 21.4 Monocytes % 6.1 Eosinophils % 7.4 H Basophils % 0.5 Nucleated Red Blood Cells % 0.0 Neutrophils # 5.1 Lymphocytes # 1.7 Monocytes # 0.5 Eosinophils # 0.6 H Basophils # 0.0 Nucleated Red Blood Cells # 0.0 Sodium Level 137 Potassium Level 4.1 Chloride Level 99 Carbon Dioxide Level 33 H Anion Gap 9 Blood Urea Nitrogen 41 #H Creatinine 3.89 H Glucose Level 112 Calcium Level 8.0 L Medications Medications Current Medications Diagnostic Test (Pha) (Accu-Chek) 1 ea 02 XX Last administered on 09/15/17 02 :00; Admin Dose 1 EA; Start 08/23/17 at 02:00 Miscellaneous Information 1 ea NOTE XX ; Start 08/22/17 at 13:30 Glucose (Glutose) 15 gm Q15M PRN PO DECREASED GLUCOSE; Start 08/22/17 at 13:30 Glucose (Glutose) 22.5 gm Q15M PRN PO DECREASED GLUCOSE; Start 08/22/17 at 13: 30 Dextrose (D50w Syringe) 25 ml Q15M PRN IV DECREASED GLUCOSE Last administered on 09/13/17 18:10; Admin Dose 25 ML; Start 08/22/17 at 13:30 Dextrose (D50w Syringe) 50 ml Q15M PRN IV DECREASED GLUCOSE Last administered on 09/12/17 12:27; Admin Dose 50 ML; Start 08/22/17 at 13:30 Glucagon (Glucagen) 1 mg Q15M PRN IM DECREASED GLUCOSE; Start 08/22/17 at 13:30 Glucose (Glutose) 15 gm Q15M PRN BUCCAL DECREASED GLUCOSE; Start 08/22/17 at 13 :30 Sodium Hypochlorite (Dakin'S (Dilute 1/40%)) 1 applic BID IRR Last administered on 09/16/17 09:58; Admin Dose 1 APPLIC; Start 08/23/17 at 09:00 Acetaminophen (Tylenol Tab) 500 mg Q4H PRN PO PAIN AND OR ELEVATED TEMP Last administered on 08/27/17 01:27; Admin Dose 500 MG; Start 08/25/17 at 12:00 Morphine Sulfate (morphine) 2 mg Q4H PRN IV PAIN LEVEL 4-6 Last administered on 09/03/17 20:38; Admin Dose 2 MG; Start 08/25/17 at 12:00 Lansoprazole (Prevacid) 30 mg DAILY@06 GTB Last administered on 09/16/17 05: 36; Admin Dose 30 MG; Start 08/29/17 at 06:00 Insulin Aspart (Novolog Insulin Pen) (Adult SC Insulin - Mild Algorithm)... Q4 SC Last administered on 09/14/17 08:53; Admin Dose 1 UNIT; Start 08/31/17 at 16:00 Lisinopril (Zestril) 20 mg BID PO Last administered on 09/15/17 21:09; Admin Dose 20 MG; Start 09/02/17 at 21:00 Clonidine (Catapres) 0.1 mg Q6H PRN GTB ELEVATED SYSTOLIC BP Last administered on 09/13/17 04:36; Admin Dose 0.1 MG; Start 09/02/17 at 21:30 Epoetin Bo (Epogen (Esrd)) 2,000 units MoWeFr@17 SC Last administered on 17:29; Admin Dose 2,000 UNITS; Start 09/05/17 at 17:00 Epoetin Bo (Epogen (Esrd)) 3,000 units MoWeFr@17 SC Last administered on 17:29; Admin Dose 3,000 UNITS; Start 09/05/17 at 17:00 Insulin Glargine (Lantus) 10 unit DAILY SC Last administered on 09/16/17 10: 47; Admin Dose 10 UNIT; Start 09/08/17 at 09:00 Metoprolol Tartrate (Lopressor) 75 mg BID GTB Last administered on 09/15/17 21:08; Admin Dose 75 MG; Start 09/10/17 at 21:00 Collagenase (Santyl) 1 applic DAILY TOP Last administered on 09/16/17 09:58; Admin Dose 1 APPLIC; Start 09/11/17 at 09:00 Clonidine HCl (Catapres-Tts 1 Patch) 1 patch Th@20 TRANSDERM Last administered on 09/15/17t 21:10; Admin Dose 1 PATCH; Start 09/15/17 at 20:00 ODETTE MCKEON Sep 16, 2017 11:32
--- NOTE | 2017-09-16 14:25 | CONS ---
Date/Time of Note Date/Time of Note DATE: 09/16/17 TIME: 14:22 Assessment/Plan Assessment/Plan Chief Complaint/Hosp Course IMPRESSION: 1. Positive troponin-in the setting of renal failure-No sig uptrend 2. Abnormal electrocardiogram, nonspecific ST-T abnormalities. 3. Hypertension-uncontrolled. F/U after receiving anti-hypertensives 4. Respiratory failure, chronic. 5. Renal failure, acute on chronic. 6. Dysphagia, status post G-tube. 7. Anemia-ongoing 8. Thrombocytopenia-improved 9. Encephalopathy. 10. History of CVA. 11. Diabetes mellitus. 12. Hypokalemia 14. Cardiomyopathy-depressed EF 40% Recc: -Tele -Continue BB/ACEI -start clonidine TTS to improve BP -follow volume status with HD for volume removal -Continue asa -Continue abx's and f/u cx data Problems: Consultation Date/Type/Reason Admit Date/Time Aug 20, 2017 at 17:03 Initial Consult Date 08/20/17 Type of Consultation: cardiology Reason for Consultation positive troponin Referring Provider: LEILA GARCIA Exam/Review of Systems Vital Signs Vitals Vital Signs Date Time Temp Pulse Resp B/P Pulse Ox O2 Delivery O2 Flow Rate FiO2 09/16/17 12:29 78 09/16/17 12:03 97.9 18 153/65 99 09/16/17 10:14 50 Intake and Output 09/15/17 09/15/17 09/16/17 15:00 23:00 07:00 Intake Total 580 ml 580 ml Balance 580 ml 580 ml Exam Review of Systems: CONSTITUTIONAL: No fevers, chills. PULMONARY: No sob CARDIOVASCULAR: No chest pain/palpitations GASTROINTESTINAL: No nausea/vomiting. GENITOURINARY: No hematuria/dysuria. MUSCULOSKELETAL: No myagias/arthalgias. PSYCHIATRIC: The patient denies depression. NEUROLOGIC: encephlaopthic Constitutional: alert, oriented Psych: no complaints Head: normocephalic ENMT: mucosa pink and moist Neck: jvd (9 cm water), supple Respiratory: diminished breath sounds (at bases/B) Cardiovascular: regular rate and rhythm Gastrointestinal: non-tender, soft Musculoskeletal: muscle tone (normal) Extremities: other (contracted), pitting pedal edema (bilateral) Results Result Diagram: 09/16/17 0704 09/16/17 0706 Results 24 hrs Laboratory Tests Test 09/15/17 17:03 09/15/17 21:12 09/16/17 01:24 09/16/17 05:39 Bedside Glucose 80 93 117 126 Test 09/16/17 07:04 09/16/17 07:06 09/16/17 10:22 09/16/17 14:01 White Blood Count 7.9 # Red Blood Count 3.01 L Hemoglobin 8.5 L Hematocrit 27.4 L Mean Corpuscular Volume 91.0 Mean Corpuscular Hemoglobin 28.2 L Mean Corpuscular Hemoglobin Concent 31.0 L Red Cell Distribution Width 14.6 H Platelet Count 158 Mean Platelet Volume 10.6 H Neutrophils % 64.5 Lymphocytes % 21.4 Monocytes % 6.1 Eosinophils % 7.4 H Basophils % 0.5 Nucleated Red Blood Cells % 0.0 Neutrophils # 5.1 Lymphocytes # 1.7 Monocytes # 0.5 Eosinophils # 0.6 H Basophils # 0.0 Nucleated Red Blood Cells # 0.0 Sodium Level 137 Potassium Level 4.1 Chloride Level 99 Carbon Dioxide Level 33 H Anion Gap 9 Blood Urea Nitrogen 41 #H Creatinine 3.89 H Glucose Level 112 Calcium Level 8.0 L Bedside Glucose 140 155 Medications Medications Current Medications Diagnostic Test (Pha) (Accu-Chek) 1 ea 02 XX Last administered on 09/15/17 02 :00; Admin Dose 1 EA; Start 08/23/17 at 02:00 Miscellaneous Information 1 ea NOTE XX ; Start 08/22/17 at 13:30 Glucose (Glutose) 15 gm Q15M PRN PO DECREASED GLUCOSE; Start 08/22/17 at 13:30 Glucose (Glutose) 22.5 gm Q15M PRN PO DECREASED GLUCOSE; Start 08/22/17 at 13: 30 Dextrose (D50w Syringe) 25 ml Q15M PRN IV DECREASED GLUCOSE Last administered on 09/13/17 18:10; Admin Dose 25 ML; Start 08/22/17 at 13:30 Dextrose (D50w Syringe) 50 ml Q15M PRN IV DECREASED GLUCOSE Last administered on 09/12/17 12:27; Admin Dose 50 ML; Start 08/22/17 at 13:30 Glucagon (Glucagen) 1 mg Q15M PRN IM DECREASED GLUCOSE; Start 08/22/17 at 13:30 Glucose (Glutose) 15 gm Q15M PRN BUCCAL DECREASED GLUCOSE; Start 08/22/17 at 13 :30 Sodium Hypochlorite (Dakin'S (Dilute 1/40%)) 1 applic BID IRR Last administered on 09/16/17 09:58; Admin Dose 1 APPLIC; Start 08/23/17 at 09:00 Acetaminophen (Tylenol Tab) 500 mg Q4H PRN PO PAIN AND OR ELEVATED TEMP Last administered on 08/27/17 01:27; Admin Dose 500 MG; Start 08/25/17 at 12:00 Morphine Sulfate (morphine) 2 mg Q4H PRN IV PAIN LEVEL 4-6 Last administered on 09/03/17 20:38; Admin Dose 2 MG; Start 08/25/17 at 12:00 Lansoprazole (Prevacid) 30 mg DAILY@06 GTB Last administered on 09/16/17 05: 36; Admin Dose 30 MG; Start 08/29/17 at 06:00 Insulin Aspart (Novolog Insulin Pen) (Adult SC Insulin - Mild Algorithm)... Q4 SC Last administered on 09/16/17 14:05; Admin Dose 1 UNIT; Start 08/31/17 at 16:00 Lisinopril (Zestril) 20 mg BID PO Last administered on 09/15/17 21:09; Admin Dose 20 MG; Start 09/02/17 at 21:00 Clonidine (Catapres) 0.1 mg Q6H PRN GTB ELEVATED SYSTOLIC BP Last administered on 09/13/17 04:36; Admin Dose 0.1 MG; Start 09/02/17 at 21:30 Epoetin Bo (Epogen (Esrd)) 2,000 units MoWeFr@17 SC Last administered on 17:29; Admin Dose 2,000 UNITS; Start 09/05/17 at 17:00 Epoetin Bo (Epogen (Esrd)) 3,000 units MoWeFr@17 SC Last administered on 17:29; Admin Dose 3,000 UNITS; Start 09/05/17 at 17:00 Insulin Glargine (Lantus) 10 unit DAILY SC Last administered on 09/16/17 10: 47; Admin Dose 10 UNIT; Start 09/08/17 at 09:00 Metoprolol Tartrate (Lopressor) 75 mg BID GTB Last administered on 09/15/17 21:08; Admin Dose 75 MG; Start 09/10/17 at 21:00 Collagenase (Santyl) 1 applic DAILY TOP Last administered on 09/16/17 09:58; Admin Dose 1 APPLIC; Start 09/11/17 at 09:00 Clonidine HCl (Catapres-Tts 1 Patch) 1 patch Th@20 TRANSDERM Last administered on 09/15/17 21:10; Admin Dose 1 PATCH; Start 09/15/17 at 20:00 BRENTON NORTON Sep 16, 2017 14:25
--- NOTE | 2017-09-16 15:53 | CONS ---
Date/Time of Note Date/Time of Note DATE: 09/16/17 TIME: 15:53 Assessment/Plan Assessment/Plan Additional Assessment/Plan 1. Sepsis due to PNA 2. Acute on chronic renal failure - with severe metabolic acidosis and acute uremic encephalopathy- pt is anuric, started on HD during this admission 3. AMS due to acute uremic encephalopathy + acute metabolic encephalopathy 3. H/o recent admission to [place] for renal failure 4. H/o chronic resp failure s/p tracheostomy 5. HTN 6. H/o CVA with residual weakness 7.. IDDM 8. Anemia,severe, anemia of chronic disease, 9. RLE swelling Plan: started on HD during this admission,- s/p permacath placement now- on Tuesday, tuesday and Tuesday schedule now , HD ordered for today Hepatitis panel, HIV negative pt will be intermediate HD patient Outpatient HD placement is pending- difficult placement [facility] can not accept pt IV abx as per ID will follow up Consultation Date/Type/Reason Admit Date/Time Aug 20, 2017 at 17:03 Initial Consult Date 08/20/17 Type of Consultation: NEPHROLOGY Referring Provider: LEILA GARCIA Exam/Review of Systems Vital Signs Vitals Vital Signs Date Time Temp Pulse Resp B/P Pulse Ox O2 Delivery O2 Flow Rate FiO2 09/16/17 15:25 98.5 83 18 148/67 97 09/16/17 13:40 35 Intake and Output 09/15/17 09/15/17 09/16/17 15:00 23:00 07:00 Intake Total 580 ml 580 ml Balance 580 ml 580 ml Exam Constitutional: non-verbal ENMT: other (+ tracheostomy on ventilator ) Respiratory: congested cough, crackles/rales, diminished breath sounds Cardiovascular: S3, regular rate and rhythm Gastrointestinal: non-tender, soft Musculoskeletal: other (2+ pittign edema ), swelling Neurological: other (non verbal , pt is s/p tracheostomy on ventilator ) Results Result Diagram: 09/16/17 0704 09/16/17 0706 Results 24 hrs Laboratory Tests Test 09/15/17 17:03 09/15/17 21:12 09/16/17 01:24 09/16/17 05:39 Bedside Glucose 80 93 117 126 Test 09/16/17 07:04 09/16/17 07:06 09/16/17 10:22 09/16/17 14:01 White Blood Count 7.9 # Red Blood Count 3.01 L Hemoglobin 8.5 L Hematocrit 27.4 L Mean Corpuscular Volume 91.0 Mean Corpuscular Hemoglobin 28.2 L Mean Corpuscular Hemoglobin Concent 31.0 L Red Cell Distribution Width 14.6 H Platelet Count 158 Mean Platelet Volume 10.6 H Neutrophils % 64.5 Lymphocytes % 21.4 Monocytes % 6.1 Eosinophils % 7.4 H Basophils % 0.5 Nucleated Red Blood Cells % 0.0 Neutrophils # 5.1 Lymphocytes # 1.7 Monocytes # 0.5 Eosinophils # 0.6 H Basophils # 0.0 Nucleated Red Blood Cells # 0.0 Sodium Level 137 Potassium Level 4.1 Chloride Level 99 Carbon Dioxide Level 33 H Anion Gap 9 Blood Urea Nitrogen 41 #H Creatinine 3.89 H Glucose Level 112 Calcium Level 8.0 L Bedside Glucose 140 155 Medications Medications Current Medications Diagnostic Test (Pha) (Accu-Chek) 1 ea 02 XX Last administered on 09/15/17 02 :00; Admin Dose 1 EA; Start 08/23/17 at 02:00 Miscellaneous Information 1 ea NOTE XX ; Start 08/22/17 at 13:30 Glucose (Glutose) 15 gm Q15M PRN PO DECREASED GLUCOSE; Start 08/22/17 at 13:30 Glucose (Glutose) 22.5 gm Q15M PRN PO DECREASED GLUCOSE; Start 08/22/17 at 13: 30 Dextrose (D50w Syringe) 25 ml Q15M PRN IV DECREASED GLUCOSE Last administered on 09/13/17 18:10; Admin Dose 25 ML; Start 08/22/17 at 13:30 Dextrose (D50w Syringe) 50 ml Q15M PRN IV DECREASED GLUCOSE Last administered on 09/12/17 12:27; Admin Dose 50 ML; Start 08/22/17 at 13:30 Glucagon (Glucagen) 1 mg Q15M PRN IM DECREASED GLUCOSE; Start 08/22/17 at 13:30 Glucose (Glutose) 15 gm Q15M PRN BUCCAL DECREASED GLUCOSE; Start 08/22/17 at 13 :30 Sodium Hypochlorite (Dakin'S (Dilute 1/40%)) 1 applic BID IRR Last administered on 09/16/17 09:58; Admin Dose 1 APPLIC; Start 08/23/17 at 09:00 Acetaminophen (Tylenol Tab) 500 mg Q4H PRN PO PAIN AND OR ELEVATED TEMP Last administered on 08/27/17 01:27; Admin Dose 500 MG; Start 08/25/17 at 12:00 Morphine Sulfate (morphine) 2 mg Q4H PRN IV PAIN LEVEL 4-6 Last administered on 09/03/17 20:38; Admin Dose 2 MG; Start 08/25/17 at 12:00 Lansoprazole (Prevacid) 30 mg DAILY@06 GTB Last administered on 09/16/17 05: 36; Admin Dose 30 MG; Start 08/29/17 at 06:00 Insulin Aspart (Novolog Insulin Pen) (Adult SC Insulin - Mild Algorithm)... Q4 SC Last administered on 09/16/17 14:05; Admin Dose 1 UNIT; Start 08/31/17 at 16:00 Lisinopril (Zestril) 20 mg BID PO Last administered on 09/15/17 21:09; Admin Dose 20 MG; Start 09/02/17 at 21:00 Clonidine (Catapres) 0.1 mg Q6H PRN GTB ELEVATED SYSTOLIC BP Last administered on 09/13/17 04:36; Admin Dose 0.1 MG; Start 09/02/17 at 21:30 Epoetin Bo (Epogen (Esrd)) 2,000 units MoWeFr@17 SC Last administered on 17:29; Admin Dose 2,000 UNITS; Start 09/05/17 at 17:00 Epoetin Bo (Epogen (Esrd)) 3,000 units MoWeFr@17 SC Last administered on 17:29; Admin Dose 3,000 UNITS; Start 09/05/17 at 17:00 Insulin Glargine (Lantus) 10 unit DAILY SC Last administered on 09/16/17 10: 47; Admin Dose 10 UNIT; Start 09/08/17 at 09:00 Metoprolol Tartrate (Lopressor) 75 mg BID GTB Last administered on 09/15/17 21:08; Admin Dose 75 MG; Start 09/10/17 at 21:00 Collagenase (Santyl) 1 applic DAILY TOP Last administered on 09/16/17 09:58; Admin Dose 1 APPLIC; Start 09/11/17 at 09:00 Clonidine HCl (Catapres-Tts 1 Patch) 1 patch Th@20 TRANSDERM Last administered on 09/15/17 21:10; Admin Dose 1 PATCH; Start 09/15/17 at 20:00 LUCILLE CABALLERO MD Sep 16, 2017 15:53
--- NOTE | 2017-09-16 18:19 | PN ---
Date/Time of Note Date/Time of Note DATE: 09/16/17 TIME: 18:19 Assessment/Plan VTE Prophylaxis VTE Prophylaxis Intervention: SCD's Lines/Catheters [facility] PICC Line Central line still needed: Yes Urinary Cath still in place: No Assessment/Plan Chief Complaint/Hosp Course Patient status post hemodialysis today, remains hemodynamically stable, afebrile. Assessment/Plan -Acute on chronic CKD. Continue hemodialysis. S/p permacath placement. Dr. Nieto is following in nephrology consultation. -Ventilator dependent respiratory failure with tracheostomy. -Pulmonary edema versus multifocal pneumonia, status post treatment with antibiotics. Dr Hill is following in infection disease consultation -Positive troponin in the setting of renal disease, Dr. Zuniga is following in cardiology consultation -Acute metabolic encephalopathy -Anemia, s/p blood transfusion, continue Epogen, continue to monitor hemoglobin and hematocrit -DM, continue Lantus, NovoLog per sliding scale. -Dysphagia with PEG -Sacral wound, Dr. Worthy is following in general surgery consultation. Continue current wound care, pending wound debridement. Further recommendations based on clinical course. Plan of care discussed with Dr. Chávez. Problems: Exam/Review of Systems Vital Signs Vitals Vital Signs Date Time Temp Pulse Resp B/P Pulse Ox O2 Delivery O2 Flow Rate FiO2 09/16/17 17:20 99 24 100 35 09/16/17 15:25 98.5 148/67 Intake and Output 09/15/17 09/15/17 09/16/17 15:00 23:00 07:00 Intake Total 580 ml 580 ml Balance 580 ml 580 ml Exam Constitutional: non-verbal Head: normocephalic Neck: supple Respiratory: diminished breath sounds Cardiovascular: nl pulses Gastrointestinal: non-tender, other (G-tube), soft Extremities: edema Results Result Diagram: 09/16/17 0704 09/16/17 0706 Results 24 hrs Laboratory Tests Test 09/15/17 21:12 09/16/17 01:24 09/16/17 05:39 09/16/17 07:04 Bedside Glucose 93 117 126 White Blood Count 7.9 # Red Blood Count 3.01 L Hemoglobin 8.5 L Hematocrit 27.4 L Mean Corpuscular Volume 91.0 Mean Corpuscular Hemoglobin 28.2 L Mean Corpuscular Hemoglobin Concent 31.0 L Red Cell Distribution Width 14.6 H Platelet Count 158 Mean Platelet Volume 10.6 H Neutrophils % 64.5 Lymphocytes % 21.4 Monocytes % 6.1 Eosinophils % 7.4 H Basophils % 0.5 Nucleated Red Blood Cells % 0.0 Neutrophils # 5.1 Lymphocytes # 1.7 Monocytes # 0.5 Eosinophils # 0.6 H Basophils # 0.0 Nucleated Red Blood Cells # 0.0 Test 09/16/17 07:06 09/16/17 10:22 09/16/17 14:01 09/16/17 17:48 Sodium Level 137 Potassium Level 4.1 Chloride Level 99 Carbon Dioxide Level 33 H Anion Gap 9 Blood Urea Nitrogen 41 #H Creatinine 3.89 H Glucose Level 112 Calcium Level 8.0 L Bedside Glucose 140 155 121 Medications Medications Current Medications Diagnostic Test (Pha) (Accu-Chek) 1 ea 02 XX Last administered on 09/15/17 02 :00; Admin Dose 1 EA; Start 08/23/17 at 02:00 Miscellaneous Information 1 ea NOTE XX ; Start 08/22/17 at 13:30 Glucose (Glutose) 15 gm Q15M PRN PO DECREASED GLUCOSE; Start 08/22/17 at 13:30 Glucose (Glutose) 22.5 gm Q15M PRN PO DECREASED GLUCOSE; Start 08/22/17 at 13: 30 Dextrose (D50w Syringe) 25 ml Q15M PRN IV DECREASED GLUCOSE Last administered on 09/13/17 18:10; Admin Dose 25 ML; Start 08/22/17 at 13:30 Dextrose (D50w Syringe) 50 ml Q15M PRN IV DECREASED GLUCOSE Last administered on 09/12/17 12:27; Admin Dose 50 ML; Start 08/22/17 at 13:30 Glucagon (Glucagen) 1 mg Q15M PRN IM DECREASED GLUCOSE; Start 08/22/17 at 13:30 Glucose (Glutose) 15 gm Q15M PRN BUCCAL DECREASED GLUCOSE; Start 08/22/17 at 13 :30 Sodium Hypochlorite (Dakin'S (Dilute 1/40%)) 1 applic BID IRR Last administered on 09/16/17 09:58; Admin Dose 1 APPLIC; Start 08/23/17 at 09:00 Acetaminophen (Tylenol Tab) 500 mg Q4H PRN PO PAIN AND OR ELEVATED TEMP Last administered on 08/27/17 01:27; Admin Dose 500 MG; Start 08/25/17 at 12:00 Morphine Sulfate (morphine) 2 mg Q4H PRN IV PAIN LEVEL 4-6 Last administered on 09/03/17 20:38; Admin Dose 2 MG; Start 08/25/17 at 12:00 Lansoprazole (Prevacid) 30 mg DAILY@06 GTB Last administered on 09/16/17 05: 36; Admin Dose 30 MG; Start 08/29/17 at 06:00 Insulin Aspart (Novolog Insulin Pen) (Adult SC Insulin - Mild Algorithm)... Q4 SC Last administered on 09/16/17 14:05; Admin Dose 1 UNIT; Start 08/31/17 at 16:00 Lisinopril (Zestril) 20 mg BID PO Last administered on 09/15/17 21:09; Admin Dose 20 MG; Start 09/02/17 at 21:00 Clonidine (Catapres) 0.1 mg Q6H PRN GTB ELEVATED SYSTOLIC BP Last administered on 09/13/17 04:36; Admin Dose 0.1 MG; Start 09/02/17 at 21:30 Epoetin Bo (Epogen (Esrd)) 2,000 units MoWeFr@17 SC Last administered on 17:29; Admin Dose 2,000 UNITS; Start 09/05/17 at 17:00 Epoetin Bo (Epogen (Esrd)) 3,000 units MoWeFr@17 SC Last administered on 17:29; Admin Dose 3,000 UNITS; Start 09/05/17 at 17:00 Insulin Glargine (Lantus) 10 unit DAILY SC Last administered on 09/16/17 10: 47; Admin Dose 10 UNIT; Start 09/08/17 at 09:00 Metoprolol Tartrate (Lopressor) 75 mg BID GTB Last administered on 09/15/17 21:08; Admin Dose 75 MG; Start 09/10/17 at 21:00 Collagenase (Santyl) 1 applic DAILY TOP Last administered on 09/16/17 09:58; Admin Dose 1 APPLIC; Start 09/11/17 at 09:00 Clonidine HCl (Catapres-Tts 1 Patch) 1 patch Th@20 TRANSDERM Last administered on 09/15/17t 21:10; Admin Dose 1 PATCH; Start 09/15/17 at 20:00 ARLETH MCKNIGHT Sep 16, 2017 18:19
[2017-09-16] MEDS: EPOETIN 2000 UNITS/1 ML INJ (ESRD) SC SCH (19:09)
[2017-09-16] MEDS: EPOETIN 3000 UNITS/1 ML INJ (ESRD) SC SCH (19:09)
[2017-09-17] VITALS (22 sets, daily range): BP systolic 132–177; BP diastolic 68–79; PULSE 60–75; RESP 17–24
[2017-09-17] MEDS: INSULIN ASPART [NOVOLOG] 3 ML PEN SC SCH ×6 (01:00→21:00)
[2017-09-17] MEDS: ACCU-CHEK XX SCH (01:58)
--- NOTE | 2017-09-17 03:16 | PN ---
Date/Time of Note Date/Time of Note DATE: 09/16/17 TIME: 19:13 Assessment/Plan Lines/Catheters IV Catheter Type (from Nrs): PICC Line Chun in Place (from Nrs): No Assessment/Plan Chief Complaint/Hosp Course 1. Sacral wound with mod drainage and odor: +wound cultures; still awaiting decision from family -Frequent turning and offloading -local care with dakins -debridement: awaiting decision from family -local care -low airloss mattress -optimize nutrition -vitamin c/short term zinc 2. VRDF w pna: -cont vent management -pulm toilet -abx per ID 3. Acute on chronic kidney disease:on HD -per renal -limit nephrotoxic meds -HD per renal 4. Anemia: no acute bleed noted -monitor and transfuse prn 5. Dysphagia w tf -continue tf w aspiration precautions 6. Diabetes: -blood sugar optimization Thank you, Late entry 09/16 Problems: Subjective 24 Hr Interval Summary No acute changes. Non verbal indicators of pain not present. Appears comfortable on vent. No fevers, congested cough, change in tele rhythm, v/d. Awaiting family decision. Exam/Review of Systems Vital Signs Vitals Vital Signs Date Time Temp Pulse Resp B/P Pulse Ox O2 Delivery O2 Flow Rate FiO2 09/17/17 01:00 70 24 99 35 09/17/17 00:31 97.5 132/71 Intake and Output 09/16/17 09/16/17 09/17/17 15:00 23:00 07:00 Intake Total 200 ml 580 ml Output Total 2500 ml Balance -2300 ml 580 ml Exam Free Text/Dictation Constitutional: other (somnolent, opens eyes with stimuli), No distress Psych: other (flat) Head: atraumatic, normocephalic Eyes: nl lids, nl sclera ENMT: mucosa pink and moist Neck: other (trach) Respiratory: other (vent), No congested cough, No labored breathing Cardiovascular: nl pulses, regular rate and rhythm (sr) Gastrointestinal: soft, No distended (peg) Musculoskeletal: muscle weakness (stiffness), No nl gait and stance Extremities: normal pulses; bilat pedal edema Neurological: No nl speech, No nl strength Skin: other (sacrum with mind odor and mod drainage) Results Result Diagram: 09/16/17 0704 09/16/17 0706 MARITZA POTTER MD Sep 17, 2017 03:16
[2017-09-17] MEDS: LANSOPRAZOLE 30 MG CAP GTB SCH (05:50)
[2017-09-17] MEDS: METOPROLOL 50 MG TAB GTB SCH ×2 (08:25→21:47)
[2017-09-17] MEDS: LISINOPRIL 20 MG TAB PO SCH ×2 (08:26→21:47)
[2017-09-17] MEDS: SODIUM HYPOCHLORITE 1/40% 1L IRRIG IRR SCH ×2 (09:00→21:47)
[2017-09-17] MEDS: COLLAGENASE 30 GM TUBE TOP SCH (09:00)
--- NOTE | 2017-09-17 10:05 | PN ---
Date/Time of Note Date/Time of Note DATE: 09/17/17 TIME: 10:05 Assessment/Plan VTE Prophylaxis VTE Prophylaxis Intervention: other Lines/Catheters IV C[facility]ter Type [facility]from [facility] right permacath Urinary Cath still in place: No Assessment/Plan Chief Complaint/Hosp Course -Acute on chronic CKD. Continue hemodialysis. S/p permacath placement. Dr. Nieto is following in nephrology consultation. -Ventilator dependent respiratory failure with tracheostomy. -Pulmonary edema versus multifocal pneumonia, status post treatment with antibiotics. Dr Hill is following in infection disease consultation -Positive troponin in the setting of renal disease, Dr. Zuniga is following in cardiology consultation -Acute metabolic encephalopathy -Anemia, s/p blood transfusion, continue Epogen, continue to monitor hemoglobin and hematocrit -DM, continue Lantus, NovoLog per sliding scale. -Dysphagia with PEG -Sacral wound, Dr. Worthy is following in general surgery consultation. Continue current wound care, pending wound debridement. Problems: Subjective 24 Hr Interval Summary Free Text/Dictation Patient resting, trach in place Exam/Review of Systems Vital Signs Vitals Vital Signs Date Time Temp Pulse Resp B/P Pulse Ox O2 Delivery O2 Flow Rate FiO2 09/17/17 08:41 66 09/17/17 08:05 97.9 17 177/74 100 09/17/17 05:00 35 Intake and Output 09/16/17 09/16/17 09/17/17 15:00 23:00 07:00 Intake Total 200 ml 580 ml Output Total 2500 ml Balance -2300 ml 580 ml Exam Constitutional: well developed Head: atraumatic, normocephalic Neck: supple Respiratory: diminished breath sounds Cardiovascular: regular rate and rhythm Gastrointestinal: non-tender, soft Extremities: normal pulses Results Result Diagram: 09/16/17 0704 09/16/17 0706 Results 24 hrs Laboratory Tests Test 09/16/17 10:22 09/16/17 14:01 09/16/17 17:48 09/16/17 21:12 Bedside Glucose 140 155 121 114 Test 09/17/17 01:42 09/17/17 04:52 Bedside Glucose 120 121 Medications Medications Current Medications Diagnostic Test (Pha) (Accu-Chek) 1 ea 02 XX Last administered on 09/15/17t 02 :00; Admin Dose 1 EA; Start 08/23/17 at 02:00 Miscellaneous Information 1 ea NOTE XX ; Start 08/22/17 at 13:30 Glucose (Glutose) 15 gm Q15M PRN PO DECREASED GLUCOSE; Start 08/22/17 at 13:30 Glucose (Glutose) 22.5 gm Q15M PRN PO DECREASED GLUCOSE; Start 08/22/17 at 13: 30 Dextrose (D50w Syringe) 25 ml Q15M PRN IV DECREASED GLUCOSE Last administered on 09/13/17 18:10; Admin Dose 25 ML; Start 08/22/17 at 13:30 Dextrose (D50w Syringe) 50 ml Q15M PRN IV DECREASED GLUCOSE Last administered on 09/12/17 12:27; Admin Dose 50 ML; Start 08/22/17 at 13:30 Glucagon (Glucagen) 1 mg Q15M PRN IM DECREASED GLUCOSE; Start 08/22/17 at 13:30 Glucose (Glutose) 15 gm Q15M PRN BUCCAL DECREASED GLUCOSE; Start 08/22/17 at 13 :30 Sodium Hypochlorite (Dakin'S (Dilute 1/40%)) 1 applic BID IRR Last administered on 09/16/17 21:51; Admin Dose 1 APPLIC; Start 08/23/17 at 09:00 Acetaminophen (Tylenol Tab) 500 mg Q4H PRN PO PAIN AND OR ELEVATED TEMP Last administered on 08/27/17 01:27; Admin Dose 500 MG; Start 08/25/17 at 12:00 Morphine Sulfate (morphine) 2 mg Q4H PRN IV PAIN LEVEL 4-6 Last administered on 09/03/17 20:38; Admin Dose 2 MG; Start 08/25/17 at 12:00 Lansoprazole (Prevacid) 30 mg DAILY@06 GTB Last administered on 09/17/17 05: 50; Admin Dose 30 MG; Start 08/29/17 at 06:00 Insulin Aspart (Novolog Insulin Pen) (Adult SC Insulin - Mild Algorithm)... Q4 SC Last administered on 09/16/17 14:05; Admin Dose 1 UNIT; Start 08/31/17 at 16:00 Lisinopril (Zestril) 20 mg BID PO Last administered on 09/17/17 08:26; Admin Dose 20 MG; Start 09/02/17 at 21:00 Clonidine (Catapres) 0.1 mg Q6H PRN GTB ELEVATED SYSTOLIC BP Last administered on 09/17/17 08:26; Admin Dose 0.1 MG; Start 09/02/17 at 21:30 Epoetin Bo (Epogen (Esrd)) 2,000 units MoWeFr@17 SC Last administered on 19:09; Admin Dose 2,000 UNITS; Start 09/05/17 at 17:00 Epoetin Bo (Epogen (Esrd)) 3,000 units MoWeFr@17 SC Last administered on 19:09; Admin Dose 3,000 UNITS; Start 09/05/17 at 17:00 Insulin Glargine (Lantus) 10 unit DAILY SC Last administered on 09/16/17 10: 47; Admin Dose 10 UNIT; Start 09/08/17 at 09:00 Metoprolol Tartrate (Lopressor) 75 mg BID GTB Last administered on 09/17/17 08:25; Admin Dose 75 MG; Start 09/10/17 at 21:00 Collagenase (Santyl) 1 applic DAILY TOP Last administered on 09/16/17 09:58; Admin Dose 1 APPLIC; Start 09/11/17 at 09:00 Clonidine HCl (Catapres-Tts 1 Patch) 1 patch Th@20 TRANSDERM Last administered on 09/15/17 21:10; Admin Dose 1 PATCH; Start 09/15/17 at 20:00 HUSSEIN ROSE Sep 17, 2017 10:05
[2017-09-17] MEDS: INSULIN GLARGINE [LANtus] 3 ML PEN SC SCH (10:38)
--- NOTE | 2017-09-17 12:22 | CONS ---
Date/Time of Note Date/Time of Note DATE: 09/17/17 TIME: 12:21 Consult Date/Type/Reason Admit Date/Time Aug 20, 2017 at 17:03 Initial Consult Date 08/20/17 Type of Consultation: Pulmonary Ordering Provider: LEILA GARCIA Subjective Patient remains comfortable. No new events. Objective Vital Signs Date Time Temp Pulse Resp B/P Pulse Ox O2 Delivery O2 Flow Rate FiO2 09/17/17 12:01 97.6 63 17 149/68 98 09/17/17 11:10 35 Intake and Output 09/16/17 09/16/17 09/17/17 15:00 23:00 07:00 Intake Total 200 ml 580 ml Output Total 2500 ml Balance -2300 ml 580 ml Exam PHYSICAL EXAMINATION GENERAL: Elderly gentleman, on mechanical ventilation appears comfortable VITAL SIGNS: see below. HEENT: Pupils equal, round, and reactive to light. Tracheostomy site clean and intact. CARDIAC: S1, S2, CHEST: Diminished air entry bilaterally. ABDOMEN: Mildly distended. Bowel sounds present no guarding or rebound EXTREMITIES: No cyanosis, clubbing edema +1 NEUROLOGIC: Generalized weakness Results/Medications Result Diagram: 09/16/17 0704 09/16/17 0706 Results 24 hrs Laboratory Tests Test 09/16/17 14:01 09/16/17 17:48 09/16/17 21:12 09/17/17 01:42 Bedside Glucose 155 121 114 120 Test 09/17/17 04:52 09/17/17 10:34 Bedside Glucose 121 155 Medications Current Medications Diagnostic Test (Pha) (Accu-Chek) 1 ea 02 XX Last administered on 09/15/17 02 :00; Admin Dose 1 EA; Start 08/23/17 at 02:00 Miscellaneous Information 1 ea NOTE XX ; Start 08/22/17 at 13:30 Glucose (Glutose) 15 gm Q15M PRN PO DECREASED GLUCOSE; Start 08/22/17 at 13:30 Glucose (Glutose) 22.5 gm Q15M PRN PO DECREASED GLUCOSE; Start 08/22/17 at 13: 30 Dextrose (D50w Syringe) 25 ml Q15M PRN IV DECREASED GLUCOSE Last administered on 09/13/17 18:10; Admin Dose 25 ML; Start 08/22/17 at 13:30 Dextrose (D50w Syringe) 50 ml Q15M PRN IV DECREASED GLUCOSE Last administered on 09/12/17 12:27; Admin Dose 50 ML; Start 08/22/17 at 13:30 Glucagon (Glucagen) 1 mg Q15M PRN IM DECREASED GLUCOSE; Start 08/22/17 at 13:30 Glucose (Glutose) 15 gm Q15M PRN BUCCAL DECREASED GLUCOSE; Start 08/22/17 at 13 :30 Sodium Hypochlorite (Dakin'S (Dilute 1/40%)) 1 applic BID IRR Last administered on 09/16/17 21:51; Admin Dose 1 APPLIC; Start 08/23/17 at 09:00 Acetaminophen (Tylenol Tab) 500 mg Q4H PRN PO PAIN AND OR ELEVATED TEMP Last administered on 08/27/17 01:27; Admin Dose 500 MG; Start 08/25/17 at 12:00 Morphine Sulfate (morphine) 2 mg Q4H PRN IV PAIN LEVEL 4-6 Last administered on 09/03/17 20:38; Admin Dose 2 MG; Start 08/25/17 at 12:00 Lansoprazole (Prevacid) 30 mg DAILY@06 GTB Last administered on 09/17/17 05: 50; Admin Dose 30 MG; Start 08/29/17 at 06:00 Insulin Aspart (Novolog Insulin Pen) (Adult SC Insulin - Mild Algorithm)... Q4 SC Last administered on 09/17/17 10:39; Admin Dose 1 UNIT; Start 08/31/17 at 16:00 Lisinopril (Zestril) 20 mg BID PO Last administered on 09/17/17 08:26; Admin Dose 20 MG; Start 09/02/17 at 21:00 Clonidine (Catapres) 0.1 mg Q6H PRN GTB ELEVATED SYSTOLIC BP Last administered on 09/17/17 08:26; Admin Dose 0.1 MG; Start 09/02/17 at 21:30 Epoetin Bo (Epogen (Esrd)) 2,000 units MoWeFr@17 SC Last administered on 19:09; Admin Dose 2,000 UNITS; Start 09/05/17 at 17:00 Epoetin Bo (Epogen (Esrd)) 3,000 units MoWeFr@17 SC Last administered on 19:09; Admin Dose 3,000 UNITS; Start 09/05/17 at 17:00 Insulin Glargine (Lantus) 10 unit DAILY SC Last administered on 09/17/17 10: 38; Admin Dose 10 UNIT; Start 09/08/17 at 09:00 Metoprolol Tartrate (Lopressor) 75 mg BID GTB Last administered on 09/17/17 08:25; Admin Dose 75 MG; Start 09/10/17 at 21:00 Collagenase (Santyl) 1 applic DAILY TOP Last administered on 09/17/17 09:00; Admin Dose 1 APPLIC; Start 09/11/17 at 09:00 Clonidine HCl (Catapres-Tts 1 Patch) 1 patch Th@20 TRANSDERM Last administered on 09/15/17 21:10; Admin Dose 1 PATCH; Start 09/15/17 at 20:00 Assessment/Plan Chief Complaint/Hosp Course IMP: 1. AMS 2. s/p Hypoxemic Resp Failure/s/pARDS/Trach 3. Acute on CKD 4. Demand ischemia 5. CHF 6. Anemia RECS: 1. Vent support 2. BD's 3. CPT 4. BP control DC planning okay from pulmonary standpoint Problems: CHARLEE PORTER MD, [facility] Sep 17, 2017 12:22
--- NOTE | 2017-09-17 14:44 | CONS ---
Date/Time of Note Date/Time of Note DATE: 09/17/17 TIME: 14:29 Assessment/Plan Assessment/Plan Chief Complaint/Hosp Course Problems: Additional Assessment/Plan ACS Cardiomyopathy Abnormal electrocardiogram, nonspecific ST-T abnormalities. Hypertension Respiratory failure, chronic. ESRD on HD Dysphagia, status post G-tube. Anemia Thrombocytopenia Encephalopathy. History of CVA. Diabetes mellitus. Continue Metoprolol Continue Clonidine Patch Continue Lisinopril continue Heparin Continue Prevacid Continue Insulin HD as scheduled Consultation Date/Type/Reason Admit Date/Time Aug 20, 2017 at 17:03 Hx of Present Illness Gen: no responsive and intubated Neck : Trach on Vent CVS Tachycardic, no m/r/g RS Crackles and mechanical breath sounds heard bilaterally Abd: BS present Ext: trace pedal edema Constitutional: requiring IVF, requiring O2, No chills, No febrile Eyes: No discharge, No redness ENT: No congestion, No pain Respiratory: No shortness of breath Cardiovascular: No chest pain, No edema Gastrointestinal: No constipation, No decreased appetite Genitourinary: No bleeding, No hematuria Musculoskeletal: restricted range of motion Skin: other (sacral wound) Neurologic: No focal-weakness, No seizure Psychological: no complaints Past Medical History Medical History: congestive heart failure, diabetes, hypertension, other (H/o CVA with residual weakness) Past Surgical History Past Surgical Hx: other (Tracheostomhy) Social History Alcohol Use: none Smoking Status: Unknown if ever smoked Drug Use: none Exam/Review of Systems Vital Signs Vitals Vital Signs Date Time Temp Pulse Resp B/P Pulse Ox O2 Delivery O2 Flow Rate FiO2 09/17/17 12:33 62 09/17/17 12:01 97.6 17 149/68 98 09/17/17 11:10 35 Intake and Output 09/16/17 09/16/17 09/17/17 15:00 23:00 07:00 Intake Total 200 ml 580 ml Output Total 2500 ml Balance -2300 ml 580 ml Exam Gen: no responsive Neck : Trach on Vent CVS RRR no m/r/g RS Crackles and mechanical breath sounds heard bilaterally Abd: BS present Ext: trace pedal edema Constitutional: non-verbal Results Result Diagram: 09/16/17 0704 09/16/17 0706 Results 24 hrs Laboratory Tests Test 09/16/17 17:48 09/16/17 21:12 09/17/17 01:42 09/17/17 04:52 Bedside Glucose 121 114 120 121 Test 09/17/17 10:34 09/17/17 13:04 Bedside Glucose 155 165 Medications Medications Current Medications Diagnostic Test (Pha) (Accu-Chek) 1 ea 02 XX Last administered on 09/15/17 02 :00; Admin Dose 1 EA; Start 08/23/17 at 02:00 Miscellaneous Information 1 ea NOTE XX ; Start 08/22/17 at 13:30 Glucose (Glutose) 15 gm Q15M PRN PO DECREASED GLUCOSE; Start 08/22/17 at 13:30 Glucose (Glutose) 22.5 gm Q15M PRN PO DECREASED GLUCOSE; Start 08/22/17 at 13: 30 Dextrose (D50w Syringe) 25 ml Q15M PRN IV DECREASED GLUCOSE Last administered on 09/13/17 18:10; Admin Dose 25 ML; Start 08/22/17 at 13:30 Dextrose (D50w Syringe) 50 ml Q15M PRN IV DECREASED GLUCOSE Last administered on 09/12/17 12:27; Admin Dose 50 ML; Start 08/22/17 at 13:30 Glucagon (Glucagen) 1 mg Q15M PRN IM DECREASED GLUCOSE; Start 08/22/17 at 13:30 Glucose (Glutose) 15 gm Q15M PRN BUCCAL DECREASED GLUCOSE; Start 08/22/17 at 13 :30 Sodium Hypochlorite (Dakin'S (Dilute 1/40%)) 1 applic BID IRR Last administered on 09/17/17 09:00; Admin Dose 1 APPLIC; Start 08/23/17 at 09:00 Acetaminophen (Tylenol Tab) 500 mg Q4H PRN PO PAIN AND OR ELEVATED TEMP Last administered on 08/27/17 01:27; Admin Dose 500 MG; Start 08/25/17 at 12:00 Morphine Sulfate (morphine) 2 mg Q4H PRN IV PAIN LEVEL 4-6 Last administered on 09/03/17 20:38; Admin Dose 2 MG; Start 08/25/17 at 12:00 Lansoprazole (Prevacid) 30 mg DAILY@06 GTB Last administered on 09/17/17 05: 50; Admin Dose 30 MG; Start 08/29/17 at 06:00 Insulin Aspart (Novolog Insulin Pen) (Adult SC Insulin - Mild Algorithm)... Q4 SC Last administered on 09/17/17 13:07; Admin Dose 1 UNIT; Start 08/31/17 at 16:00 Lisinopril (Zestril) 20 mg BID PO Last administered on 09/17/17 08:26; Admin Dose 20 MG; Start 09/02/17 at 21:00 Clonidine (Catapres) 0.1 mg Q6H PRN GTB ELEVATED SYSTOLIC BP Last administered on 09/17/17 08:26; Admin Dose 0.1 MG; Start 09/02/17 at 21:30 Epoetin Bo (Epogen (Esrd)) 2,000 units MoWeFr@17 SC Last administered on 19:09; Admin Dose 2,000 UNITS; Start 09/05/17 at 17:00 Epoetin Bo (Epogen (Esrd)) 3,000 units MoWeFr@17 SC Last administered on 19:09; Admin Dose 3,000 UNITS; Start 09/05/17 at 17:00 Insulin Glargine (Lantus) 10 unit DAILY SC Last administered on 09/17/17 10: 38; Admin Dose 10 UNIT; Start 09/08/17 at 09:00 Metoprolol Tartrate (Lopressor) 75 mg BID GTB Last administered on 09/17/17 08:25; Admin Dose 75 MG; Start 09/10/17 at 21:00 Collagenase (Santyl) 1 applic DAILY TOP Last administered on 09/17/17 09:00; Admin Dose 1 APPLIC; Start 09/11/17 at 09:00 Clonidine HCl (Catapres-Tts 1 Patch) 1 patch Th@20 TRANSDERM Last administered on 09/15/17 21:10; Admin Dose 1 PATCH; Start 09/15/17 at 20:00 VAL NAPIER M.D. Sep 17, 2017 14:41
--- NOTE | 2017-09-17 17:43 | CONS ---
Date/Time of Note Date/Time of Note DATE: 09/17/17 TIME: 17:41 Assessment/Plan Assessment/Plan Additional Assessment/Plan 1. Sepsis due to PNA 2. Acute on chronic renal failure - with severe metabolic acidosis and acute uremic encephalopathy- pt is anuric, started on HD during this admission 3. AMS due to acute uremic encephalopathy + acute metabolic encephalopathy 3. H/o recent admission to [place] for renal failure 4. H/o chronic resp failure s/p tracheostomy 5. HTN 6. H/o CVA with residual weakness 7.. IDDM 8. Anemia,severe, anemia of chronic disease, 9. RLE swelling Plan: started on HD during this admission,- s/p PermCath placement now- on Tuesday, Tuesday and Tuesday schedule now , HD yesterday Hepatitis panel, HIV negative pt will be skilled nursing HD patient Outpatient HD placement is pending- difficult placement [facility] HD center can not accept pt IV abx as per ID will follow up Dw Dr Adonay Nieto/staff Consultation Date/Type/Reason Admit Date/Time Aug 20, 2017 at 17:03 Initial Consult Date 08/20/17 Type of Consultation: Pulmonary Referring Provider: LEILA GARCIA 24 HR Interval Summary Free Text/Dictation non verbal, remains on vent, no labs today, dw staff- no new issues reported overnight. Constitutional: requiring IVF, requiring O2 Exam/Review of Systems Vital Signs Vitals Vital Signs Date Time Temp Pulse Resp B/P Pulse Ox O2 Delivery O2 Flow Rate FiO2 09/17/17 16:25 60 09/17/17 15:07 97.7 17 169/79 99 09/17/17 11:10 35 Intake and Output 09/16/17 09/16/17 09/17/17 15:00 23:00 07:00 Intake Total 200 ml 580 ml Output Total 2500 ml Balance -2300 ml 580 ml Exam Constitutional: non-verbal Respiratory: diminished breath sounds Cardiovascular: other (s1s2) Gastrointestinal: other (gt intact), soft Results Result Diagram: 09/16/17 0704 09/16/17 0706 Results 24 hrs Laboratory Tests Test 09/16/17 17:48 09/16/17 21:12 09/17/17 01:42 09/17/17 04:52 Bedside Glucose 121 114 120 121 Test 09/17/17 10:34 09/17/17 13:04 Bedside Glucose 155 165 Medications Medications Current Medications Diagnostic Test (Pha) (Accu-Chek) 1 ea 02 XX Last administered on 09/15/17 02 :00; Admin Dose 1 EA; Start 08/23/17 at 02:00 Miscellaneous Information 1 ea NOTE XX ; Start 08/22/17 at 13:30 Glucose (Glutose) 15 gm Q15M PRN PO DECREASED GLUCOSE; Start 08/22/17 at 13:30 Glucose (Glutose) 22.5 gm Q15M PRN PO DECREASED GLUCOSE; Start 08/22/17 at 13: 30 Dextrose (D50w Syringe) 25 ml Q15M PRN IV DECREASED GLUCOSE Last administered on 09/13/17 18:10; Admin Dose 25 ML; Start 08/22/17 at 13:30 Dextrose (D50w Syringe) 50 ml Q15M PRN IV DECREASED GLUCOSE Last administered on 09/12/17 12:27; Admin Dose 50 ML; Start 08/22/17 at 13:30 Glucagon (Glucagen) 1 mg Q15M PRN IM DECREASED GLUCOSE; Start 08/22/17 at 13:30 Glucose (Glutose) 15 gm Q15M PRN BUCCAL DECREASED GLUCOSE; Start 08/22/17 at 13 :30 Sodium Hypochlorite (Dakin'S (Dilute 1/40%)) 1 applic BID IRR Last administered on 09/17/17 09:00; Admin Dose 1 APPLIC; Start 08/23/17 at 09:00 Acetaminophen (Tylenol Tab) 500 mg Q4H PRN PO PAIN AND OR ELEVATED TEMP Last administered on 08/27/17 01:27; Admin Dose 500 MG; Start 08/25/17 at 12:00 Morphine Sulfate (morphine) 2 mg Q4H PRN IV PAIN LEVEL 4-6 Last administered on 09/03/17 20:38; Admin Dose 2 MG; Start 08/25/17 at 12:00 Lansoprazole (Prevacid) 30 mg DAILY@06 GTB Last administered on 09/17/17 05: 50; Admin Dose 30 MG; Start 08/29/17 at 06:00 Insulin Aspart (Novolog Insulin Pen) (Adult SC Insulin - Mild Algorithm)... Q4 SC Last administered on 09/17/17 13:07; Admin Dose 1 UNIT; Start 08/31/17 at 16:00 Lisinopril (Zestril) 20 mg BID PO Last administered on 09/17/17 08:26; Admin Dose 20 MG; Start 09/02/17 at 21:00 Clonidine (Catapres) 0.1 mg Q6H PRN GTB ELEVATED SYSTOLIC BP Last administered on 09/17/17 08:26; Admin Dose 0.1 MG; Start 09/02/17 at 21:30 Epoetin Bo (Epogen (Esrd)) 2,000 units MoWeFr@17 SC Last administered on 19:09; Admin Dose 2,000 UNITS; Start 09/05/17 at 17:00 Epoetin Bo (Epogen (Esrd)) 3,000 units MoWeFr@17 SC Last administered on 19:09; Admin Dose 3,000 UNITS; Start 09/05/17 at 17:00 Insulin Glargine (Lantus) 10 unit DAILY SC Last administered on 09/17/17 10: 38; Admin Dose 10 UNIT; Start 09/08/17 at 09:00 Metoprolol Tartrate (Lopressor) 75 mg BID GTB Last administered on 09/17/17 08:25; Admin Dose 75 MG; Start 09/10/17 at 21:00 Collagenase (Santyl) 1 applic DAILY TOP Last administered on 09/17/17 09:00; Admin Dose 1 APPLIC; Start 09/11/17 at 09:00 Clonidine HCl (Catapres-Tts 1 Patch) 1 patch Th@20 TRANSDERM Last administered on 09/15/17 21:10; Admin Dose 1 PATCH; Start 09/15/17 at 20:00 LEILA GARCIA Sep 17, 2017 17:43
--- NOTE | 2017-09-17 17:59 | CONS ---
Date/Time of Note Date/Time of Note DATE: 09/17/17 TIME: 17:56 Assessment/Plan Assessment/Plan Additional Assessment/Plan 1. Sepsis due to PNA 2. Acute on chronic renal failure - with severe metabolic acidosis and acute uremic encephalopathy- pt is anuric, started on HD during this admission 3. AMS due to acute uremic encephalopathy + acute metabolic encephalopathy 3. H/o recent admission to [place] for renal failure 4. H/o chronic resp failure s/p tracheostomy 5. HTN 6. H/o CVA with residual weakness 7.. IDDM 8. Anemia,severe, anemia of chronic disease, 9. RLE swelling Plan: started on HD during this admission,- s/p permacath placement now- on Tuesday, tuesday and Tuesday schedule now , HD yesterday Hepatitis panel, HIV negative pt will be half-way HD patient Outpatient HD placement is pending- difficult placement [facility] center can not accept pt IV abx as per ID will follow up Dw Sr Adonay Nieto/ staff Consultation Date/Type/Reason Admit Date/Time Aug 20, 2017 at 17:03 Initial Consult Date 08/20/17 Type of Consultation: Pulmonary Referring Provider: LEILA GARCIA Exam/Review of Systems Vital Signs Vitals Vital Signs Date Time Temp Pulse Resp B/P Pulse Ox O2 Delivery O2 Flow Rate FiO2 09/17/17 16:25 60 09/17/17 15:07 97.7 17 169/79 99 09/17/17 11:10 35 Intake and Output 09/16/17 09/16/17 09/17/17 15:00 23:00 07:00 Intake Total 200 ml 580 ml Output Total 2500 ml Balance -2300 ml 580 ml Results Result Diagram: 09/16/17 0704 09/16/17 0706 Results 24 hrs Laboratory Tests Test 09/16/17 21:12 09/17/17 01:42 09/17/17 04:52 09/17/17 10:34 Bedside Glucose 114 120 121 155 Test 09/17/17 13:04 Bedside Glucose 165 Medications Medications Current Medications Diagnostic Test (Pha) (Accu-Chek) 1 ea 02 XX Last administered on 09/15/17t 02 :00; Admin Dose 1 EA; Start 08/23/17 at 02:00 Miscellaneous Information 1 ea NOTE XX ; Start 08/22/17 at 13:30 Glucose (Glutose) 15 gm Q15M PRN PO DECREASED GLUCOSE; Start 08/22/17 at 13:30 Glucose (Glutose) 22.5 gm Q15M PRN PO DECREASED GLUCOSE; Start 08/22/17 at 13: 30 Dextrose (D50w Syringe) 25 ml Q15M PRN IV DECREASED GLUCOSE Last administered on 09/13/17 18:10; Admin Dose 25 ML; Start 08/22/17 at 13:30 Dextrose (D50w Syringe) 50 ml Q15M PRN IV DECREASED GLUCOSE Last administered on 09/12/17 12:27; Admin Dose 50 ML; Start 08/22/17 at 13:30 Glucagon (Glucagen) 1 mg Q15M PRN IM DECREASED GLUCOSE; Start 08/22/17 at 13:30 Glucose (Glutose) 15 gm Q15M PRN BUCCAL DECREASED GLUCOSE; Start 08/22/17 at 13 :30 Sodium Hypochlorite (Dakin'S (Dilute 1/40%)) 1 applic BID IRR Last administered on 09/17/17 09:00; Admin Dose 1 APPLIC; Start 08/23/17 at 09:00 Acetaminophen (Tylenol Tab) 500 mg Q4H PRN PO PAIN AND OR ELEVATED TEMP Last administered on 08/27/17 01:27; Admin Dose 500 MG; Start 08/25/17 at 12:00 Morphine Sulfate (morphine) 2 mg Q4H PRN IV PAIN LEVEL 4-6 Last administered on 09/03/17 20:38; Admin Dose 2 MG; Start 08/25/17 at 12:00 Lansoprazole (Prevacid) 30 mg DAILY@06 GTB Last administered on 09/17/17 05: 50; Admin Dose 30 MG; Start 08/29/17 at 06:00 Insulin Aspart (Novolog Insulin Pen) (Adult SC Insulin - Mild Algorithm)... Q4 SC Last administered on 09/17/17 13:07; Admin Dose 1 UNIT; Start 08/31/17 at 16:00 Lisinopril (Zestril) 20 mg BID PO Last administered on 09/17/17 08:26; Admin Dose 20 MG; Start 09/02/17 at 21:00 Clonidine (Catapres) 0.1 mg Q6H PRN GTB ELEVATED SYSTOLIC BP Last administered on 09/17/17 08:26; Admin Dose 0.1 MG; Start 09/02/17 at 21:30 Epoetin Bo (Epogen (Esrd)) 2,000 units MoWeFr@17 SC Last administered on 19:09; Admin Dose 2,000 UNITS; Start 09/05/17 at 17:00 Epoetin Bo (Epogen (Esrd)) 3,000 units MoWeFr@17 SC Last administered on 19:09; Admin Dose 3,000 UNITS; Start 09/05/17 at 17:00 Insulin Glargine (Lantus) 10 unit DAILY SC Last administered on 09/17/17 10: 38; Admin Dose 10 UNIT; Start 09/08/17 at 09:00 Metoprolol Tartrate (Lopressor) 75 mg BID GTB Last administered on 09/17/17 08:25; Admin Dose 75 MG; Start 09/10/17 at 21:00 Collagenase (Santyl) 1 applic DAILY TOP Last administered on 09/17/17 09:00; Admin Dose 1 APPLIC; Start 09/11/17 at 09:00 Clonidine HCl (Catapres-Tts 1 Patch) 1 patch Th@20 TRANSDERM Last administered on 09/15/17 21:10; Admin Dose 1 PATCH; Start 09/15/17 at 20:00 LEILA GARCIA Sep 17, 2017 17:59
--- NOTE | 2017-09-17 18:03 | PN ---
Date/Time of Note Date/Time of Note DATE: 09/17/17 TIME: 18:02 Assessment/Plan Lines/Catheters IV Catheter Type (from [facility]): right permacath Chun in Place (from Nrs): No Assessment/Plan Chief Complaint/Hosp Course 1. Sacral wound with mod drainage and odor: +wound cultures; still awaiting decision from family -Frequent turning and offloading -local care with dakins -debridement: awaiting decision from family -local care -low airloss mattress -optimize nutrition -vitamin c/short term zinc 2. VRDF w pna: -cont vent management -pulm toilet -abx per ID 3. Acute on chronic kidney disease:on HD -per renal -limit nephrotoxic meds -HD per renal 4. Anemia: no acute bleed noted -monitor and transfuse prn 5. Dysphagia w tf -continue tf w aspiration precautions 6. Diabetes: -blood sugar optimization Thank you, Problems: Subjective 24 Hr Interval Summary No acute changes. Non verbal indicators of pain not present. Appears comfortable on vent. No fevers, congested cough, change in tele rhythm, v/d. Awaiting family decision. Exam/Review of Systems Vital Signs Vitals Vital Signs Date Time Temp Pulse Resp B/P Pulse Ox O2 Delivery O2 Flow Rate FiO2 09/17/17 16:25 60 09/17/17 15:07 97.7 17 169/79 99 09/17/17 11:10 35 Intake and Output 09/16/17 09/16/17 09/17/17 15:00 23:00 07:00 Intake Total 200 ml 580 ml Output Total 2500 ml Balance -2300 ml 580 ml Exam Free Text/Dictation Constitutional: other (somnolent, opens eyes with stimuli), No distress Psych: other (flat) Head: atraumatic, normocephalic Eyes: nl lids, nl sclera ENMT: mucosa pink and moist Neck: other (trach) Respiratory: other (vent), No congested cough, No labored breathing Cardiovascular: nl pulses, regular rate and rhythm (sr) Gastrointestinal: soft, No distended (peg) Musculoskeletal: muscle weakness (stiffness), No nl gait and stance Extremities: normal pulses; bilat pedal edema Neurological: No nl speech, No nl strength Skin: other (sacrum with mind odor and mod drainage) Results Result Diagram: 09/16/17 0704 09/16/17 0706 MARITZA POTTER MD Sep 17, 2017 18:03
[2017-09-17] MEDS: DEXTROSE 50% 50 ML SYRINGE IV PRN (21:41)
[2017-09-18] VITALS (24 sets, daily range): BP systolic 127–184; BP diastolic 60–86; PULSE 56–70; RESP 17–24
[2017-09-18] MEDS: INSULIN ASPART [NOVOLOG] 3 ML PEN SC SCH ×6 (00:45→21:00)
[2017-09-18] MEDS: ACCU-CHEK XX SCH (02:00)
[2017-09-18] MEDS: LANSOPRAZOLE 30 MG CAP GTB SCH (05:43)
[2017-09-18] MEDS: METOPROLOL 50 MG TAB GTB SCH ×2 (08:39→21:25)
[2017-09-18] MEDS: LISINOPRIL 20 MG TAB PO SCH ×2 (08:39→21:24)
[2017-09-18] MEDS: INSULIN GLARGINE [LANtus] 3 ML PEN SC SCH (08:54)
[2017-09-18] MEDS: COLLAGENASE 30 GM TUBE TOP SCH (09:00)
[2017-09-18] MEDS: SODIUM HYPOCHLORITE 1/40% 1L IRRIG IRR SCH ×2 (09:00→21:27)
--- NOTE | 2017-09-18 10:52 | CONS ---
Date/Time of Note Date/Time of Note DATE: 09/18/17 TIME: 10:51 Consult Date/Type/Reason Admit Date/Time Aug 20, 2017 at 17:03 Initial Consult Date 08/20/17 Type of Consultation: Pulmonary Ordering Provider: LEILA GARCIA Subjective No new events. Patient comfortable this morning. Objective Vital Signs Date Time Temp Pulse Resp B/P Pulse Ox O2 Delivery O2 Flow Rate FiO2 09/18/17 08:26 64 09/18/17 08:07 97.7 18 184/77 95 09/18/17 05:15 35 Intake and Output 09/17/17 09/17/17 09/18/17 15:00 23:00 07:00 Intake Total 580 ml 640 ml Balance 580 ml 640 ml Exam PHYSICAL EXAMINATION GENERAL: Elderly gentleman, on mechanical ventilation appears comfortable VITAL SIGNS: see below. HEENT: Pupils equal, round, and reactive to light. Tracheostomy site clean and intact. CARDIAC: S1, S2, CHEST: Diminished air entry bilaterally. ABDOMEN: Mildly distended. Bowel sounds present no guarding or rebound EXTREMITIES: No cyanosis, clubbing edema +1 NEUROLOGIC: Generalized weakness Results/Medications Result Diagram: 09/16/17 0704 09/16/17 0706 Results 24 hrs Laboratory Tests Test 09/17/17 13:04 09/17/17 19:10 09/17/17 21:37 09/17/17 21:51 Bedside Glucose 165 83 65 L 225 H Test 09/17/17 22:29 09/18/17 00:45 09/18/17 05:46 09/18/17 08:50 Bedside Glucose 144 129 132 142 Medications Current Medications Diagnostic Test (Pha) (Accu-Chek) 1 ea 02 XX Last administered on 09/15/17 02 :00; Admin Dose 1 EA; Start 08/23/17 at 02:00 Miscellaneous Information 1 ea NOTE XX ; Start 08/22/17 at 13:30 Glucose (Glutose) 15 gm Q15M PRN PO DECREASED GLUCOSE; Start 08/22/17 at 13:30 Glucose (Glutose) 22.5 gm Q15M PRN PO DECREASED GLUCOSE; Start 08/22/17 at 13: 30 Dextrose (D50w Syringe) 25 ml Q15M PRN IV DECREASED GLUCOSE Last administered on 09/17/17 21:41; Admin Dose 25 ML; Start 08/22/17 at 13:30 Dextrose (D50w Syringe) 50 ml Q15M PRN IV DECREASED GLUCOSE Last administered on 09/12/17 12:27; Admin Dose 50 ML; Start 08/22/17 at 13:30 Glucagon (Glucagen) 1 mg Q15M PRN IM DECREASED GLUCOSE; Start 08/22/17 at 13:30 Glucose (Glutose) 15 gm Q15M PRN BUCCAL DECREASED GLUCOSE; Start 08/22/17 at 13 :30 Sodium Hypochlorite (Dakin'S (Dilute 1/40%)) 1 applic BID IRR Last administered on 09/17/17 21:47; Admin Dose 1 APPLIC; Start 08/23/17 at 09:00 Acetaminophen (Tylenol Tab) 500 mg Q4H PRN PO PAIN AND OR ELEVATED TEMP Last administered on 08/27/17 01:27; Admin Dose 500 MG; Start 08/25/17 at 12:00 Morphine Sulfate (morphine) 2 mg Q4H PRN IV PAIN LEVEL 4-6 Last administered on 09/03/17 20:38; Admin Dose 2 MG; Start 08/25/17 at 12:00 Lansoprazole (Prevacid) 30 mg DAILY@06 GTB Last administered on 09/18/17 05: 43; Admin Dose 30 MG; Start 08/29/17 at 06:00 Insulin Aspart (Novolog Insulin Pen) (Adult SC Insulin - Mild Algorithm)... Q4 SC Last administered on 09/18/17 08:54; Admin Dose 1 UNIT; Start 08/31/17 at 16:00 Lisinopril (Zestril) 20 mg BID PO Last administered on 09/18/17 08:39; Admin Dose 20 MG; Start 09/02/17 at 21:00 Clonidine (Catapres) 0.1 mg Q6H PRN GTB ELEVATED SYSTOLIC BP Last administered on 09/18/17 08:41; Admin Dose 0.1 MG; Start 09/02/17 at 21:30 Epoetin Bo (Epogen (Esrd)) 2,000 units MoWeFr@17 SC Last administered on 19:09; Admin Dose 2,000 UNITS; Start 09/05/17 at 17:00 Epoetin Bo (Epogen (Esrd)) 3,000 units MoWeFr@17 SC Last administered on 19:09; Admin Dose 3,000 UNITS; Start 09/05/17 at 17:00 Insulin Glargine (Lantus) 10 unit DAILY SC Last administered on 09/18/17 08: 54; Admin Dose 10 UNIT; Start 09/08/17 at 09:00 Metoprolol Tartrate (Lopressor) 75 mg BID GTB Last administered on 09/18/17 08:39; Admin Dose 75 MG; Start 09/10/17 at 21:00 Collagenase (Santyl) 1 applic DAILY TOP Last administered on 09/17/17 09:00; Admin Dose 1 APPLIC; Start 09/11/17 at 09:00 Clonidine HCl (Catapres-Tts 1 Patch) 1 patch Th@20 TRANSDERM Last administered on 09/15/17 21:10; Admin Dose 1 PATCH; Start 09/15/17 at 20:00 Assessment/Plan Chief Complaint/Hosp Course IMP: 1. AMS 2. s/p Hypoxemic Resp Failure/s/pARDS/Trach 3. Acute on CKD 4. Demand ischemia 5. CHF 6. Anemia RECS: 1. Vent support 2. BD's 3. CPT 4. BP control DC planning okay from pulmonary standpoint Problems: CHARLEE PORTER MD, [facility] Sep 18, 2017 10:51
--- NOTE | 2017-09-18 11:00 | PN ---
Date/Time of Note Date/Time of Note DATE: 09/18/17 TIME: 10:59 Assessment/Plan VTE Prophylaxis VTE Prophylaxis Intervention: other Lines/Catheters IV C[facility]ter Type (from [facility] right chest permacath Urinary Cath still in place: No Assessment/Plan Chief Complaint/Hosp Course -Acute on chronic CKD. Continue hemodialysis. S/p permacath placement. Dr. Nieto is following in nephrology consultation. -Ventilator dependent respiratory failure with tracheostomy. -Pulmonary edema versus multifocal pneumonia, status post treatment with antibiotics. Dr Hill is following in infection disease consultation -Positive troponin in the setting of renal disease, Dr. Zuniga is following in cardiology consultation -Acute metabolic encephalopathy -Anemia, s/p blood transfusion, continue Epogen, continue to monitor hemoglobin and hematocrit -DM, continue Lantus, NovoLog per sliding scale. -Dysphagia with PEG -Sacral wound, Dr. Worthy is following in general surgery consultation. Continue current wound care, pending wound debridement. Problems: Subjective 24 Hr Interval Summary Free Text/Dictation Patient sedated, vent in place Exam/Review of Systems Vital Signs Vitals Vital Signs Date Time Temp Pulse Resp B/P Pulse Ox O2 Delivery O2 Flow Rate FiO2 09/18/17 08:26 64 09/18/17 08:07 97.7 18 184/77 95 09/18/17 05:15 35 Intake and Output 09/17/17 09/17/17 09/18/17 15:00 23:00 07:00 Intake Total 580 ml 640 ml Balance 580 ml 640 ml Exam Constitutional: well developed Head: atraumatic, normocephalic Neck: supple Respiratory: clear to auscultation Cardiovascular: regular rate and rhythm Gastrointestinal: non-tender, soft Extremities: normal pulses Results Result Diagram: 09/16/17 0704 09/16/17 0706 Results 24 hrs Laboratory Tests Test 09/17/17 13:04 09/17/17 19:10 09/17/17 21:37 09/17/17 21:51 Bedside Glucose 165 83 65 L 225 H Test 09/17/17 22:29 09/18/17 00:45 09/18/17 05:46 09/18/17 08:50 Bedside Glucose 144 129 132 142 Medications Medications Current Medications Diagnostic Test (Pha) (Accu-Chek) XX Last administered on 09/15/17 02 :00; Admin Dose 1 EA; Start 08/23/17 at 02:00 Miscellaneous Information 1 ea NOTE XX ; Start 08/22/17 at 13:30 Glucose (Glutose) 15 gm Q15M PRN PO DECREASED GLUCOSE; Start 08/22/17 at 13:30 Glucose (Glutose) 22.5 gm Q15M PRN PO DECREASED GLUCOSE; Start 08/22/17 at 13: 30 Dextrose (D50w Syringe) 25 ml Q15M PRN IV DECREASED GLUCOSE Last administered on 09/17/17 21:41; Admin Dose 25 ML; Start 08/22/17 at 13:30 Dextrose (D50w Syringe) 50 ml Q15M PRN IV DECREASED GLUCOSE Last administered on 09/12/17 12:27; Admin Dose 50 ML; Start 08/22/17 at 13:30 Glucagon (Glucagen) 1 mg Q15M PRN IM DECREASED GLUCOSE; Start 08/22/17 at 13:30 Glucose (Glutose) 15 gm Q15M PRN BUCCAL DECREASED GLUCOSE; Start 08/22/17 at 13 :30 Sodium Hypochlorite (Dakin'S (Dilute 1/40%)) 1 applic BID IRR Last administered on 09/17/17 21:47; Admin Dose 1 APPLIC; Start 08/23/17 at 09:00 Acetaminophen (Tylenol Tab) 500 mg Q4H PRN PO PAIN AND OR ELEVATED TEMP Last administered on 08/27/17 01:27; Admin Dose 500 MG; Start 08/25/17 at 12:00 Morphine Sulfate (morphine) 2 mg Q4H PRN IV PAIN LEVEL 4-6 Last administered on 09/03/17 20:38; Admin Dose 2 MG; Start 08/25/17 at 12:00 Lansoprazole (Prevacid) 30 mg DAILY@06 GTB Last administered on 09/18/17 05: 43; Admin Dose 30 MG; Start 08/29/17 at 06:00 Insulin Aspart (Novolog Insulin Pen) (Adult SC Insulin - Mild Algorithm)... Q4 SC Last administered on 09/18/17 08:54; Admin Dose 1 UNIT; Start 08/31/17 at 16:00 Lisinopril (Zestril) 20 mg BID PO Last administered on 09/18/17 08:39; Admin Dose 20 MG; Start 09/02/17 at 21:00 Clonidine (Catapres) 0.1 mg Q6H PRN GTB ELEVATED SYSTOLIC BP Last administered on 09/18/17 08:41; Admin Dose 0.1 MG; Start 09/02/17 at 21:30 Epoetin Bo (Epogen (Esrd)) 2,000 units MoWeFr@17 SC Last administered on 19:09; Admin Dose 2,000 UNITS; Start 09/05/17 at 17:00 Epoetin Bo (Epogen (Esrd)) 3,000 units MoWeFr@17 SC Last administered on 19:09; Admin Dose 3,000 UNITS; Start 09/05/17 at 17:00 Insulin Glargine (Lantus) 10 unit DAILY SC Last administered on 09/18/17 08: 54; Admin Dose 10 UNIT; Start 09/08/17 at 09:00 Metoprolol Tartrate (Lopressor) 75 mg BID GTB Last administered on 09/18/17 08:39; Admin Dose 75 MG; Start 09/10/17 at 21:00 Collagenase (Santyl) 1 applic DAILY TOP Last administered on 09/17/17 09:00; Admin Dose 1 APPLIC; Start 09/11/17 at 09:00 Clonidine HCl (Catapres-Tts 1 Patch) 1 patch Th@20 TRANSDERM Last administered on 09/15/17 21:10; Admin Dose 1 PATCH; Start 09/15/17 at 20:00 HUSSEIN ROSE Sep 18, 2017 11:00
--- NOTE | 2017-09-18 12:34 | CONS ---
Date/Time of Note Date/Time of Note DATE: 09/18/17 TIME: 12:24 Assessment/Plan Assessment/Plan Additional Assessment/Plan 1. Sepsis due to PNA 2. Acute on chronic renal failure - with severe metabolic acidosis and acute uremic encephalopathy- pt is anuric, started on HD during this admission 3. AMS due to acute uremic encephalopathy + acute metabolic encephalopathy 3. H/o recent admission to [place] for renal failure 4. H/o chronic resp failure s/p tracheostomy 5. HTN 6. H/o CVA with residual weakness 7.. IDDM 8. Anemia,severe, anemia of chronic disease, 9. RLE swelling Plan: started on HD during this admission,- s/p PermCath placement now- on Tuesday, Tuesday and Tuesday schedule now , HD yesterday Hepatitis panel, HIV negative pt will be usp HD patient Outpatient HD placement is pending- difficult placement [facility] can not accept pt IV abx as per ID will follow up Dw Dr Adonay Nieto/staff Consultation Date/Type/Reason Admit Date/Time Aug 20, 2017 at 17:03 Initial Consult Date 08/20/17 Type of Consultation: Pulmonary Referring Provider: LEILA GARCIA 24 HR Interval Summary Free Text/Dictation non verbal, remains on vent, afebrile,HD on 09/16, no labs today, dw staff- no new issues reported overnight. Subjective hx not possible: pt non-verbal Constitutional: requiring IVF, requiring O2 Exam/Review of Systems Vital Signs Vitals Vital Signs Date Time Temp Pulse Resp B/P Pulse Ox O2 Delivery O2 Flow Rate FiO2 09/18/17 11:49 98.5 63 18 144/64 100 09/18/17 11:10 35 Intake and Output 09/17/17 09/17/17 09/18/17 15:00 23:00 07:00 Intake Total 580 ml 640 ml Balance 580 ml 640 ml Exam Constitutional: obese Respiratory: diminished breath sounds Cardiovascular: nl pulses, other (s1s2) Gastrointestinal: other (gt intact), soft Musculoskeletal: swelling Extremities: normal pulses Neurological: unresponsive Results Result Diagram: 09/16/17 0704 09/16/17 0706 Results 24 hrs Laboratory Tests Test 09/17/17 13:04 09/17/17 19:10 09/17/17 21:37 09/17/17 21:51 Bedside Glucose 165 83 65 L 225 H Test 09/17/17 22:29 09/18/17 00:45 09/18/17 05:46 09/18/17 08:50 Bedside Glucose 144 129 132 142 Medications Medications Current Medications Diagnostic Test (Pha) (Accu-Chek) 1 ea 02 XX Last administered on 09/15/17 02 :00; Admin Dose 1 EA; Start 08/23/17 at 02:00 Miscellaneous Information 1 ea NOTE XX ; Start 08/22/17 at 13:30 Glucose (Glutose) 15 gm Q15M PRN PO DECREASED GLUCOSE; Start 08/22/17 at 13:30 Glucose (Glutose) 22.5 gm Q15M PRN PO DECREASED GLUCOSE; Start 08/22/17 at 13: 30 Dextrose (D50w Syringe) 25 ml Q15M PRN IV DECREASED GLUCOSE Last administered on 09/17/17 21:41; Admin Dose 25 ML; Start 08/22/17 at 13:30 Dextrose (D50w Syringe) 50 ml Q15M PRN IV DECREASED GLUCOSE Last administered on 09/12/17 12:27; Admin Dose 50 ML; Start 08/22/17 at 13:30 Glucagon (Glucagen) 1 mg Q15M PRN IM DECREASED GLUCOSE; Start 08/22/17 at 13:30 Glucose (Glutose) 15 gm Q15M PRN BUCCAL DECREASED GLUCOSE; Start 08/22/17 at 13 :30 Sodium Hypochlorite (Dakin'S (Dilute 1/40%)) 1 applic BID IRR Last administered on 09/17/17 21:47; Admin Dose 1 APPLIC; Start 08/23/17 at 09:00 Acetaminophen (Tylenol Tab) 500 mg Q4H PRN PO PAIN AND OR ELEVATED TEMP Last administered on 08/27/17 01:27; Admin Dose 500 MG; Start 08/25/17 at 12:00 Morphine Sulfate (morphine) 2 mg Q4H PRN IV PAIN LEVEL 4-6 Last administered on 09/03/17 20:38; Admin Dose 2 MG; Start 08/25/17 at 12:00 Lansoprazole (Prevacid) 30 mg DAILY@06 GTB Last administered on 09/18/17 05: 43; Admin Dose 30 MG; Start 08/29/17 at 06:00 Insulin Aspart (Novolog Insulin Pen) (Adult SC Insulin - Mild Algorithm)... Q4 SC Last administered on 09/18/17 08:54; Admin Dose 1 UNIT; Start 08/31/17 at 16:00 Lisinopril (Zestril) 20 mg BID PO Last administered on 09/18/17 08:39; Admin Dose 20 MG; Start 09/02/17 at 21:00 Clonidine (Catapres) 0.1 mg Q6H PRN GTB ELEVATED SYSTOLIC BP Last administered on 09/18/17 08:41; Admin Dose 0.1 MG; Start 09/02/17 at 21:30 Epoetin Bo (Epogen (Esrd)) 2,000 units MoWeFr@17 SC Last administered on 19:09; Admin Dose 2,000 UNITS; Start 09/05/17 at 17:00 Epoetin Bo (Epogen (Esrd)) 3,000 units MoWeFr@17 SC Last administered on 19:09; Admin Dose 3,000 UNITS; Start 09/05/17 at 17:00 Insulin Glargine (Lantus) 10 unit DAILY SC Last administered on 09/18/17 08: 54; Admin Dose 10 UNIT; Start 09/08/17 at 09:00 Metoprolol Tartrate (Lopressor) 75 mg BID GTB Last administered on 09/18/17 08:39; Admin Dose 75 MG; Start 09/10/17 at 21:00 Collagenase (Santyl) 1 applic DAILY TOP Last administered on 09/17/17 09:00; Admin Dose 1 APPLIC; Start 09/11/17 at 09:00 Clonidine HCl (Catapres-Tts 1 Patch) 1 patch Th@20 TRANSDERM Last administered on 09/15/17 21:10; Admin Dose 1 PATCH; Start 09/15/17 at 20:00 LEILA GARCIA Sep 18, 2017 12:34
--- NOTE | 2017-09-18 13:56 | CONS ---
Date/Time of Note Date/Time of Note DATE: 09/18/17 TIME: 13:55 Assessment/Plan Assessment/Plan Chief Complaint/Hosp Course Problems: Additional Assessment/Plan ACS Cardiomyopathy Abnormal electrocardiogram, nonspecific ST-T abnormalities. Hypertension Respiratory failure, chronic. ESRD on HD Dysphagia, status post G-tube. Anemia Thrombocytopenia Encephalopathy. History of CVA. Diabetes mellitus. BP labile Added Norvasc Continue Metoprolol Continue Clonidine Patch Continue Lisinopril continue Heparin Continue Prevacid Continue Insulin HD as scheduled Consultation Date/Type/Reason Admit Date/Time Aug 20, 2017 at 17:03 Initial Consult Date 08/20/17 Type of Consultation: Pulmonary Referring Provider: LEILA GARCIA Exam/Review of Systems Vital Signs Vitals Vital Signs Date Time Temp Pulse Resp B/P Pulse Ox O2 Delivery O2 Flow Rate FiO2 09/18/17 12:28 56 09/18/17 11:49 98.5 18 144/64 100 09/18/17 11:10 35 Intake and Output 09/17/17 09/17/17 09/18/17 15:00 23:00 07:00 Intake Total 580 ml 640 ml Balance 580 ml 640 ml Exam Gen: no responsive and intubated Neck : Trach on Vent CVS Tachycardic, no m/r/g RS Crackles and mechanical breath sounds heard bilaterally Abd: BS present Ext: trace pedal edema Results Result Diagram: 09/16/17 0704 09/16/17 0706 Results 24 hrs Laboratory Tests Test 09/17/17 19:10 09/17/17 21:37 09/17/17 21:51 09/17/17 22:29 Bedside Glucose 83 65 L 225 H 144 Test 09/18/17 00:45 09/18/17 05:46 09/18/17 08:50 09/18/17 13:06 Bedside Glucose 129 132 142 125 Medications Medications Current Medications Diagnostic Test (Pha) (Accu-Chek) 1 ea 02 XX Last administered on 09/15/17t 02 :00; Admin Dose 1 EA; Start 08/23/17 at 02:00 Miscellaneous Information 1 ea NOTE XX ; Start 08/22/17 at 13:30 Glucose (Glutose) 15 gm Q15M PRN PO DECREASED GLUCOSE; Start 08/22/17 at 13:30 Glucose (Glutose) 22.5 gm Q15M PRN PO DECREASED GLUCOSE; Start 08/22/17 at 13: 30 Dextrose (D50w Syringe) 25 ml Q15M PRN IV DECREASED GLUCOSE Last administered on 09/17/17 21:41; Admin Dose 25 ML; Start 08/22/17 at 13:30 Dextrose (D50w Syringe) 50 ml Q15M PRN IV DECREASED GLUCOSE Last administered on 09/12/17 12:27; Admin Dose 50 ML; Start 08/22/17 at 13:30 Glucagon (Glucagen) 1 mg Q15M PRN IM DECREASED GLUCOSE; Start 08/22/17 at 13:30 Glucose (Glutose) 15 gm Q15M PRN BUCCAL DECREASED GLUCOSE; Start 08/22/17 at 13 :30 Sodium Hypochlorite (Dakin'S (Dilute 1/40%)) 1 applic BID IRR Last administered on 09/18/17 09:00; Admin Dose 1 APPLIC; Start 08/23/17 at 09:00 Acetaminophen (Tylenol Tab) 500 mg Q4H PRN PO PAIN AND OR ELEVATED TEMP Last administered on 08/27/17 01:27; Admin Dose 500 MG; Start 08/25/17 at 12:00 Morphine Sulfate (morphine) 2 mg Q4H PRN IV PAIN LEVEL 4-6 Last administered on 09/03/17 20:38; Admin Dose 2 MG; Start 08/25/17 at 12:00 Lansoprazole (Prevacid) 30 mg DAILY@06 GTB Last administered on 09/18/17 05: 43; Admin Dose 30 MG; Start 08/29/17 at 06:00 Insulin Aspart (Novolog Insulin Pen) (Adult SC Insulin - Mild Algorithm)... Q4 SC Last administered on 09/18/17 08:54; Admin Dose 1 UNIT; Start 08/31/17 at 16:00 Lisinopril (Zestril) 20 mg BID PO Last administered on 09/18/17 08:39; Admin Dose 20 MG; Start 09/02/17 at 21:00 Clonidine (Catapres) 0.1 mg Q6H PRN GTB ELEVATED SYSTOLIC BP Last administered on 09/18/17 08:41; Admin Dose 0.1 MG; Start 09/02/17 at 21:30 Epoetin Bo (Epogen (Esrd)) 2,000 units MoWeFr@17 SC Last administered on 19:09; Admin Dose 2,000 UNITS; Start 09/05/17 at 17:00 Epoetin Bo (Epogen (Esrd)) 3,000 units MoWeFr@17 SC Last administered on 19:09; Admin Dose 3,000 UNITS; Start 09/05/17 at 17:00 Insulin Glargine (Lantus) 10 unit DAILY SC Last administered on 09/18/17 08: 54; Admin Dose 10 UNIT; Start 09/08/17 at 09:00 Metoprolol Tartrate (Lopressor) 75 mg BID GTB Last administered on 09/18/17 08:39; Admin Dose 75 MG; Start 09/10/17 at 21:00 Collagenase (Santyl) 1 applic DAILY TOP Last administered on 09/18/17 09:00; Admin Dose 1 APPLIC; Start 09/11/17 at 09:00 Clonidine HCl (Catapres-Tts 1 Patch) 1 patch Th@20 TRANSDERM Last administered on 09/15/17 21:10; Admin Dose 1 PATCH; Start 09/15/17 at 20:00 VAL NAPIER M.D. Sep 18, 2017 13:56
[2017-09-18] MEDS: AMLODIPINE 10 MG TAB PO SCH (16:16)
[2017-09-19] VITALS (31 sets, daily range): BP systolic 97–177; BP diastolic 53–83; PULSE 60–74; RESP 17–24
[2017-09-19] MEDS: INSULIN ASPART [NOVOLOG] 3 ML PEN SC SCH ×5 (01:10→17:00)
[2017-09-19] MEDS: ACCU-CHEK XX SCH (01:11)
[2017-09-19] MEDS: LANSOPRAZOLE 30 MG CAP GTB SCH (05:36)
[2017-09-19] MEDS: METOPROLOL 50 MG TAB GTB SCH ×2 (09:00→21:00)
[2017-09-19] MEDS: AMLODIPINE 10 MG TAB PO SCH (09:00)
[2017-09-19] MEDS: LISINOPRIL 20 MG TAB PO SCH ×2 (09:00→21:05)
[2017-09-19] MEDS: SODIUM HYPOCHLORITE 1/40% 1L IRRIG IRR SCH ×2 (09:12→21:06)
[2017-09-19] MEDS: COLLAGENASE 30 GM TUBE TOP SCH (09:12)
[2017-09-19] MEDS: INSULIN GLARGINE [LANtus] 3 ML PEN SC SCH (09:16)
--- NOTE | 2017-09-19 11:46 | CONS ---
Date/Time of Note Date/Time of Note DATE: 09/19/17 TIME: 11:44 Assessment/Plan Assessment/Plan Chief Complaint/Hosp Course IMPRESSION: 1. Positive troponin-in the setting of renal failure-No sig uptrend 2. Abnormal electrocardiogram, nonspecific ST-T abnormalities. 3. Hypertension-uncontrolled. F/U after receiving anti-hypertensives 4. Respiratory failure, chronic. 5. Renal failure, acute on chronic. 6. Dysphagia, status post G-tube. 7. Anemia-ongoing 8. Thrombocytopenia-improved 9. Encephalopathy. 10. History of CVA. 11. Diabetes mellitus. 12. Hypokalemia 14. Cardiomyopathy-depressed EF 40% Recc: -Tele -Resume BB/ACEI after HD -start clonidine TTS to improve BP -follow volume status with HD for volume removal -Continue asa -Continue abx's and f/u cx data Problems: Consultation Date/Type/Reason Admit Date/Time Aug 20, 2017 at 17:03 Initial Consult Date 08/20/17 Type of Consultation: cardiology Reason for Consultation Positive trop Referring Provider: LEILA GARCIA Exam/Review of Systems Vital Signs Vitals Vital Signs Date Time Temp Pulse Resp B/P Pulse Ox O2 Delivery O2 Flow Rate FiO2 09/19/17 09:20 76 24 100 35 09/19/17 07:58 98.7 148/67 Intake and Output 09/18/17 09/18/17 09/19/17 15:00 23:00 07:00 Intake Total 580 ml 640 ml Balance 580 ml 640 ml Exam Review of Systems: CONSTITUTIONAL: No fevers, chills. PULMONARY: No sob CARDIOVASCULAR: No chest pain/palpitations GASTROINTESTINAL: No nausea/vomiting. GENITOURINARY: No hematuria/dysuria. MUSCULOSKELETAL: No myagias/arthalgias. PSYCHIATRIC: The patient denies depression. NEUROLOGIC: No weakness Constitutional: alert Psych: no complaints Head: normocephalic ENMT: mucosa pink and moist Neck: jvd (9 cm water), supple Respiratory: diminished breath sounds (at bases/B) Cardiovascular: regular rate and rhythm Gastrointestinal: non-tender, soft Musculoskeletal: muscle tone (normal) Extremities: edema (none) Neurological: other (No focal deficits) Results Result Diagram: 09/19/17 0544 09/19/17 0544 Results 24 hrs Laboratory Tests Test 09/18/17 13:06 09/18/17 16:58 09/18/17 21:21 09/19/17 01:05 Bedside Glucose 125 102 117 185 Test 09/19/17 05:31 09/19/17 05:44 09/19/17 09:13 Bedside Glucose 161 173 White Blood Count 6.2 # Red Blood Count 3.26 L Hemoglobin 9.1 L Hematocrit 29.1 L Mean Corpuscular Volume 89.3 Mean Corpuscular Hemoglobin 27.9 L Mean Corpuscular Hemoglobin Concent 31.3 L Red Cell Distribution Width 14.5 Platelet Count 152 Mean Platelet Volume 10.7 H Neutrophils % 56.1 Lymphocytes % 29.4 Monocytes % 5.0 Eosinophils % 8.7 H Basophils % 0.6 Nucleated Red Blood Cells % 0.0 Neutrophils # 3.5 Lymphocytes # 1.8 Monocytes # 0.3 Eosinophils # 0.5 Basophils # 0.0 Nucleated Red Blood Cells # 0.0 Sodium Level 137 Potassium Level 4.6 Chloride Level 98 Carbon Dioxide Level 29 Anion Gap 15 Blood Urea Nitrogen 57 H Creatinine 4.45 H Glucose Level 143 Calcium Level 7.6 L Medications Medications Current Medications Diagnostic Test (Pha) (Accu-Chek) 1 ea 02 XX Last administered on 09/15/17 02 :00; Admin Dose 1 EA; Start 08/23/17 at 02:00 Miscellaneous Information 1 ea NOTE XX ; Start 08/22/17 at 13:30 Glucose (Glutose) 15 gm Q15M PRN PO DECREASED GLUCOSE; Start 08/22/17 at 13:30 Glucose (Glutose) 22.5 gm Q15M PRN PO DECREASED GLUCOSE; Start 08/22/17 at 13: 30 Dextrose (D50w Syringe) 25 ml Q15M PRN IV DECREASED GLUCOSE Last administered on 09/17/17 21:41; Admin Dose 25 ML; Start 08/22/17 at 13:30 Dextrose (D50w Syringe) 50 ml Q15M PRN IV DECREASED GLUCOSE Last administered on 09/12/17 12:27; Admin Dose 50 ML; Start 08/22/17 at 13:30 Glucagon (Glucagen) 1 mg Q15M PRN IM DECREASED GLUCOSE; Start 08/22/17 at 13:30 Glucose (Glutose) 15 gm Q15M PRN BUCCAL DECREASED GLUCOSE; Start 08/22/17 at 13 :30 Sodium Hypochlorite (Dakin'S (Dilute 1/40%)) 1 applic BID IRR Last administered on 09/19/17 09:12; Admin Dose 1 APPLIC; Start 08/23/17 at 09:00 Acetaminophen (Tylenol Tab) 500 mg Q4H PRN PO PAIN AND OR ELEVATED TEMP Last administered on 08/27/17 01:27; Admin Dose 500 MG; Start 08/25/17 at 12:00 Morphine Sulfate (morphine) 2 mg Q4H PRN IV PAIN LEVEL 4-6 Last administered on 09/03/17 20:38; Admin Dose 2 MG; Start 08/25/17 at 12:00 Lansoprazole (Prevacid) 30 mg DAILY@06 GTB Last administered on 09/19/17 05: 36; Admin Dose 30 MG; Start 08/29/17 at 06:00 Insulin Aspart (Novolog Insulin Pen) (Adult SC Insulin - Mild Algorithm)... Q4 SC Last administered on 09/19/17 09:18; Admin Dose 1 UNIT; Start 08/31/17 at 16:00 Lisinopril (Zestril) 20 mg BID PO Last administered on 09/18/17 21:24; Admin Dose 20 MG; Start 09/02/17 at 21:00 Clonidine (Catapres) 0.1 mg Q6H PRN GTB ELEVATED SYSTOLIC BP Last administered on 09/18/17 08:41; Admin Dose 0.1 MG; Start 09/02/17 at 21:30 Epoetin Bo (Epogen (Esrd)) 2,000 units MoWeFr@17 SC Last administered on 19:09; Admin Dose 2,000 UNITS; Start 09/05/17 at 17:00 Epoetin Bo (Epogen (Esrd)) 3,000 units MoWeFr@17 SC Last administered on 19:09; Admin Dose 3,000 UNITS; Start 09/05/17 at 17:00 Insulin Glargine (Lantus) 10 unit DAILY SC Last administered on 09/19/17 09: 16; Admin Dose 10 UNIT; Start 09/08/17 at 09:00 Metoprolol Tartrate (Lopressor) 75 mg BID GTB Last administered on 10/29/17at 21:25; Admin Dose 75 MG; Start 09/10/17 at 21:00 Collagenase (Santyl) 1 applic DAILY TOP Last administered on 09/19/17 09:12; Admin Dose 1 APPLIC; Start 09/11/17 at 09:00 Clonidine HCl (Catapres-Tts 1 Patch) 1 patch Th@20 TRANSDERM Last administered on 09/15/17 21:10; Admin Dose 1 PATCH; Start 09/15/17 at 20:00 Amlodipine Besylate (Norvasc) 10 mg DAILY PO Last administered on 09/18/17 16 :16; Admin Dose 10 MG; Start 09/18/17 at 14:00 BRENTON NORTON Sep 19, 2017 11:46
--- NOTE | 2017-09-19 13:00 | PN ---
Date/Time of Note Date/Time of Note DATE: 09/19/17 TIME: 12:58 Assessment/Plan VTE Prophylaxis VTE Prophylaxis Intervention: SCD's Lines/Catheters IV [facility] Type [facility] right chest permacath Urinary Cath still in place: No Assessment/Plan Chief Complaint/Hosp Course Patient is status post hemodialysis today, remains hemodynamically stable, tolerated G-tube feeding well. Pending fdc facility placement. Assessment/Plan -Acute on chronic CKD. Continue hemodialysis. S/p permacath placement. Dr. Nieto is following in nephrology consultation. -Ventilator dependent respiratory failure with tracheostomy. -Pulmonary edema versus multifocal pneumonia, status post treatment with antibiotics. Dr Hill is following in infection disease consultation -Positive troponin in the setting of renal disease, Dr. Zuniga is following in cardiology consultation -Acute metabolic encephalopathy -Anemia, s/p blood transfusion, continue Epogen, continue to monitor hemoglobin and hematocrit -DM, continue Lantus, NovoLog per sliding scale. -Dysphagia with PEG -Sacral wound, Dr. Worthy is following in general surgery consultation. Continue current wound care. Further recommendations based on clinical course. Plan of care discussed with Dr. Chávez. Problems: Exam/Review of Systems Vital Signs Vitals Vital Signs Date Time Temp Pulse Resp B/P Pulse Ox O2 Delivery O2 Flow Rate FiO2 09/19/17 11:51 98.5 69 17 157/68 100 09/19/17 11:00 35 Intake and Output 09/18/17 09/18/17 09/19/17 15:00 23:00 07:00 Intake Total 580 ml 640 ml Balance 580 ml 640 ml Exam Constitutional: non-verbal Head: normocephalic Neck: supple Respiratory: clear breath sounds Cardiovascular: nl pulses Gastrointestinal: non-tender, other (G-tube), soft Extremities: edema Results Result Diagram: 09/19/17 0544 09/19/17 0544 Results 24 hrs Laboratory Tests Test 09/18/17 13:06 09/18/17 16:58 09/18/17 21:21 09/19/17 01:05 Bedside Glucose 125 102 117 185 Test 09/19/17 05:31 09/19/17 05:44 09/19/17 09:13 09/19/17 12:35 Bedside Glucose 161 173 189 White Blood Count 6.2 # Red Blood Count 3.26 L Hemoglobin 9.1 L Hematocrit 29.1 L Mean Corpuscular Volume 89.3 Mean Corpuscular Hemoglobin 27.9 L Mean Corpuscular Hemoglobin Concent 31.3 L Red Cell Distribution Width 14.5 Platelet Count 152 Mean Platelet Volume 10.7 H Neutrophils % 56.1 Lymphocytes % 29.4 Monocytes % 5.0 Eosinophils % 8.7 H Basophils % 0.6 Nucleated Red Blood Cells % 0.0 Neutrophils # 3.5 Lymphocytes # 1.8 Monocytes # 0.3 Eosinophils # 0.5 Basophils # 0.0 Nucleated Red Blood Cells # 0.0 Sodium Level 137 Potassium Level 4.6 Chloride Level 98 Carbon Dioxide Level 29 Anion Gap 15 Blood Urea Nitrogen 57 H Creatinine 4.45 H Glucose Level 143 Calcium Level 7.6 L Medications Medications Current Medications Diagnostic Test (Pha) (Accu-Chek) 1 ea 02 XX Last administered on 09/15/17 02 :00; Admin Dose 1 EA; Start 08/23/17 at 02:00 Miscellaneous Information 1 ea NOTE XX ; Start 08/22/17 at 13:30 Glucose (Glutose) 15 gm Q15M PRN PO DECREASED GLUCOSE; Start 08/22/17 at 13:30 Glucose (Glutose) 22.5 gm Q15M PRN PO DECREASED GLUCOSE; Start 08/22/17 at 13: 30 Dextrose (D50w Syringe) 25 ml Q15M PRN IV DECREASED GLUCOSE Last administered on 09/17/17 21:41; Admin Dose 25 ML; Start 08/22/17 at 13:30 Dextrose (D50w Syringe) 50 ml Q15M PRN IV DECREASED GLUCOSE Last administered on 09/12/17 12:27; Admin Dose 50 ML; Start 08/22/17 at 13:30 Glucagon (Glucagen) 1 mg Q15M PRN IM DECREASED GLUCOSE; Start 08/22/17 at 13:30 Glucose (Glutose) 15 gm Q15M PRN BUCCAL DECREASED GLUCOSE; Start 08/22/17 at 13 :30 Sodium Hypochlorite (Dakin'S (Dilute 1/40%)) 1 applic BID IRR Last administered on 09/19/17 09:12; Admin Dose 1 APPLIC; Start 08/23/17 at 09:00 Acetaminophen (Tylenol Tab) 500 mg Q4H PRN PO PAIN AND OR ELEVATED TEMP Last administered on 08/27/17 01:27; Admin Dose 500 MG; Start 08/25/17 at 12:00 Morphine Sulfate (morphine) 2 mg Q4H PRN IV PAIN LEVEL 4-6 Last administered on 09/03/17 20:38; Admin Dose 2 MG; Start 08/25/17 at 12:00 Lansoprazole (Prevacid) 30 mg DAILY@06 GTB Last administered on 09/19/17 05: 36; Admin Dose 30 MG; Start 08/29/17 at 06:00 Insulin Aspart (Novolog Insulin Pen) (Adult SC Insulin - Mild Algorithm)... Q4 SC Last administered on 09/19/17 12:44; Admin Dose 2 UNIT; Start 08/31/17 at 16:00 Lisinopril (Zestril) 20 mg BID PO Last administered on 09/18/17 21:24; Admin Dose 20 MG; Start 09/02/17 at 21:00 Clonidine (Catapres) 0.1 mg Q6H PRN GTB ELEVATED SYSTOLIC BP Last administered on 09/18/17 08:41; Admin Dose 0.1 MG; Start 09/02/17 at 21:30 Epoetin Bo (Epogen (Esrd)) 2,000 units MoWeFr@17 SC Last administered on 19:09; Admin Dose 2,000 UNITS; Start 09/05/17 at 17:00 Epoetin Bo (Epogen (Esrd)) 3,000 units MoWeFr@17 SC Last administered on 19:09; Admin Dose 3,000 UNITS; Start 09/05/17 at 17:00 Insulin Glargine (Lantus) 10 unit DAILY SC Last administered on 09/19/17 09: 16; Admin Dose 10 UNIT; Start 09/08/17 at 09:00 Metoprolol Tartrate (Lopressor) 75 mg BID GTB Last administered on 09/18/17 21:25; Admin Dose 75 MG; Start 09/10/17 at 21:00 Collagenase (Santyl) 1 applic DAILY TOP Last administered on 09/19/17 09:12; Admin Dose 1 APPLIC; Start 09/11/17 at 09:00 Clonidine HCl (Catapres-Tts 1 Patch) 1 patch Th@20 TRANSDERM Last administered on 09/15/17 21:10; Admin Dose 1 PATCH; Start 09/15/17 at 20:00 Amlodipine Besylate (Norvasc) 10 mg DAILY PO Last administered on 09/18/17 16 :16; Admin Dose 10 MG; Start 09/18/17 at 14:00 ARLETH MCKNIGHT Sep 19, 2017 13:00
--- NOTE | 2017-09-19 13:03 | CONS ---
Date/Time of Note Date/Time of Note DATE: 09/19/17 TIME: 13:01 Assessment/Plan Assessment/Plan Additional Assessment/Plan Ventilator setting; AC of 24, tidal volume 450, PEEP of 5, 35% FiO2. Assessment and recommendations; 1. Patient admitted with severe bilateral pneumonia with history of chronic respiratory failure which is ventilator dependent. 2. Renal failure, on hemodialysis. 3. Advanced dementia. Next Continue current supportive care. Patient awaiting placement to [facility]. Prognosis remains poor. Consultation Date/Type/Reason Admit Date/Time Aug 20, 2017 at 17:03 Initial Consult Date 08/20/17 Type of Consultation: Pulmonary Referring Provider: LEILA GARCIA 24 HR Interval Summary Free Text/Dictation Patient's condition remains stable. Remains unresponsive due to anoxic brain injury. Also remains chronically ventilator dependent. Patient has remained hemodynamically stable though. General exam; elderly male, on ventilator via tracheostomy, and in no distress. Exam/Review of Systems Vital Signs Vitals Vital Signs Date Time Temp Pulse Resp B/P Pulse Ox O2 Delivery O2 Flow Rate FiO2 09/19/17 11:51 98.5 69 17 157/68 100 09/19/17 11:00 35 Intake and Output 09/18/17 09/18/17 09/19/17 14:59 22:59 06:59 Intake Total 580 ml 640 ml Balance 580 ml 640 ml Exam HEENT exam; supple neck, no JVD. No lymphadenopathy. Midline trachea. No thyromegaly. Tracheostomy in place. Chest exam; diminished breath sounds bilaterally. S1-S2 audible, no murmurs. Abdomen exam; soft, G-tube in place. No organomegaly. Bowel sounds audible. Extremity exam; no peripheral edema. [employer] exam; patient remains completely unresponsive. Results Result Diagram: 09/19/17 0544 09/19/17 0544 Results 24 hrs Laboratory Tests Test 09/18/17 13:06 09/18/17 16:58 09/18/17 21:21 09/19/17 01:05 Bedside Glucose 125 102 117 185 Test 09/19/17 05:31 09/19/17 05:44 09/19/17 09:13 09/19/17 12:35 Bedside Glucose 161 173 189 White Blood Count 6.2 # Red Blood Count 3.26 L Hemoglobin 9.1 L Hematocrit 29.1 L Mean Corpuscular Volume 89.3 Mean Corpuscular Hemoglobin 27.9 L Mean Corpuscular Hemoglobin Concent 31.3 L Red Cell Distribution Width 14.5 Platelet Count 152 Mean Platelet Volume 10.7 H Neutrophils % 56.1 Lymphocytes % 29.4 Monocytes % 5.0 Eosinophils % 8.7 H Basophils % 0.6 Nucleated Red Blood Cells % 0.0 Neutrophils # 3.5 Lymphocytes # 1.8 Monocytes # 0.3 Eosinophils # 0.5 Basophils # 0.0 Nucleated Red Blood Cells # 0.0 Sodium Level 137 Potassium Level 4.6 Chloride Level 98 Carbon Dioxide Level 29 Anion Gap 15 Blood Urea Nitrogen 57 H Creatinine 4.45 H Glucose Level 143 Calcium Level 7.6 L Medications Medications Current Medications Diagnostic Test (Pha) (Accu-Chek) 1 ea 02 XX Last administered on 09/15/17 02 :00; Admin Dose 1 EA; Start 08/23/17 at 02:00 Miscellaneous Information 1 ea NOTE XX ; Start 08/22/17 at 13:30 Glucose (Glutose) 15 gm Q15M PRN PO DECREASED GLUCOSE; Start 08/22/17 at 13:30 Glucose (Glutose) 22.5 gm Q15M PRN PO DECREASED GLUCOSE; Start 08/22/17 at 13: 30 Dextrose (D50w Syringe) 25 ml Q15M PRN IV DECREASED GLUCOSE Last administered on 09/17/17 21:41; Admin Dose 25 ML; Start 08/22/17 at 13:30 Dextrose (D50w Syringe) 50 ml Q15M PRN IV DECREASED GLUCOSE Last administered on 09/12/17 12:27; Admin Dose 50 ML; Start 08/22/17 at 13:30 Glucagon (Glucagen) 1 mg Q15M PRN IM DECREASED GLUCOSE; Start 08/22/17 at 13:30 Glucose (Glutose) 15 gm Q15M PRN BUCCAL DECREASED GLUCOSE; Start 08/22/17 at 13 :30 Sodium Hypochlorite (Dakin'S (Dilute 1/40%)) 1 applic BID IRR Last administered on 09/19/17 09:12; Admin Dose 1 APPLIC; Start 08/23/17 at 09:00 Acetaminophen (Tylenol Tab) 500 mg Q4H PRN PO PAIN AND OR ELEVATED TEMP Last administered on 08/27/17 01:27; Admin Dose 500 MG; Start 08/25/17 at 12:00 Morphine Sulfate (morphine) 2 mg Q4H PRN IV PAIN LEVEL 4-6 Last administered on 09/03/17 20:38; Admin Dose 2 MG; Start 08/25/17 at 12:00 Lansoprazole (Prevacid) 30 mg DAILY@06 GTB Last administered on 09/19/17 05: 36; Admin Dose 30 MG; Start 08/29/17 at 06:00 Insulin Aspart (Novolog Insulin Pen) (Adult SC Insulin - Mild Algorithm)... Q4 SC Last administered on 09/19/17 12:44; Admin Dose 2 UNIT; Start 08/31/17 at 16:00 Lisinopril (Zestril) 20 mg BID PO Last administered on 09/18/17 21:24; Admin Dose 20 MG; Start 09/02/17 at 21:00 Clonidine (Catapres) 0.1 mg Q6H PRN GTB ELEVATED SYSTOLIC BP Last administered on 09/18/17 08:41; Admin Dose 0.1 MG; Start 09/02/17 at 21:30 Epoetin Bo (Epogen (Esrd)) 2,000 units MoWeFr@17 SC Last administered on 19:09; Admin Dose 2,000 UNITS; Start 09/05/17 at 17:00 Epoetin Bo (Epogen (Esrd)) 3,000 units MoWeFr@17 SC Last administered on 19:09; Admin Dose 3,000 UNITS; Start 09/05/17 at 17:00 Insulin Glargine (Lantus) 10 unit DAILY SC Last administered on 09/19/17 09: 16; Admin Dose 10 UNIT; Start 09/08/17 at 09:00 Metoprolol Tartrate (Lopressor) 75 mg BID GTB Last administered on 09/18/17 21:25; Admin Dose 75 MG; Start 09/10/17 at 21:00 Collagenase (Santyl) 1 applic DAILY TOP Last administered on 09/19/17 09:12; Admin Dose 1 APPLIC; Start 09/11/17 at 09:00 Clonidine HCl (Catapres-Tts 1 Patch) 1 patch Th@20 TRANSDERM Last administered on 09/15/17 21:10; Admin Dose 1 PATCH; Start 09/15/17 at 20:00 Amlodipine Besylate (Norvasc) 10 mg DAILY PO Last administered on 09/18/17t 16 :16; Admin Dose 10 MG; Start 09/18/17 at 14:00 ODETTE MCKEON Sep 19, 2017 13:03
[2017-09-19] MEDS: EPOETIN 2000 UNITS/1 ML INJ (ESRD) SC SCH (17:14)
[2017-09-19] MEDS: EPOETIN 3000 UNITS/1 ML INJ (ESRD) SC SCH (17:14)
--- NOTE | 2017-09-19 17:47 | CONS ---
Date/Time of Note Date/Time of Note DATE: 09/19/17 TIME: 17:45 Assessment/Plan Assessment/Plan Additional Assessment/Plan 1. Sepsis due to PNA 2. Acute on chronic renal failure - with severe metabolic acidosis and acute uremic encephalopathy- pt is anuric, started on HD during this admission 3. AMS due to acute uremic encephalopathy + acute metabolic encephalopathy 3. H/o recent admission to [place] for renal failure 4. H/o chronic resp failure s/p tracheostomy 5. HTN 6. H/o CVA with residual weakness 7.. IDDM 8. Anemia,severe, anemia of chronic disease, 9. 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 Outpatient HD placement is pending- difficult placement [facility] center can not accept pt IV abx as per ID will follow up Consultation Date/Type/Reason Admit Date/Time Aug 20, 2017 at 17:03 Initial Consult Date 08/20/17 Type of Consultation: NEPHROLOGY Referring Provider: MISSAEL CROSS MD 24 HR Interval Summary Free Text/Dictation s/p HD today 2 L removed Exam/Review of Systems Vital Signs Vitals Vital Signs Date Time Temp Pulse Resp B/P Pulse Ox O2 Delivery O2 Flow Rate FiO2 09/19/17 17:15 68 24 100 35 09/19/17 15:35 98.7 136/72 Intake and Output 09/18/17 09/18/17 09/19/17 15:00 23:00 07:00 Intake Total 580 ml 640 ml Balance 580 ml 640 ml Exam Constitutional: non-verbal ENMT: other (+ tracheostomy on ventilator ) Respiratory: congested cough, crackles/rales, diminished breath sounds Cardiovascular: S3, regular rate and rhythm Gastrointestinal: non-tender, soft Musculoskeletal: other (2+ pittign edema ), swelling Neurological: other (non verbal , pt is s/p tracheostomy on ventilator ) Results Result Diagram: 09/19/17 0544 09/19/17 0544 Results 24 hrs Laboratory Tests Test 09/18/17 21:21 09/19/17 01:05 09/19/17 05:31 09/19/17 05:44 Bedside Glucose 117 185 161 White Blood Count 6.2 # Red Blood Count 3.26 L Hemoglobin 9.1 L Hematocrit 29.1 L Mean Corpuscular Volume 89.3 Mean Corpuscular Hemoglobin 27.9 L Mean Corpuscular Hemoglobin Concent 31.3 L Red Cell Distribution Width 14.5 Platelet Count 152 Mean Platelet Volume 10.7 H Neutrophils % 56.1 Lymphocytes % 29.4 Monocytes % 5.0 Eosinophils % 8.7 H Basophils % 0.6 Nucleated Red Blood Cells % 0.0 Neutrophils # 3.5 Lymphocytes # 1.8 Monocytes # 0.3 Eosinophils # 0.5 Basophils # 0.0 Nucleated Red Blood Cells # 0.0 Sodium Level 137 Potassium Level 4.6 Chloride Level 98 Carbon Dioxide Level 29 Anion Gap 15 Blood Urea Nitrogen 57 H Creatinine 4.45 H Glucose Level 143 Calcium Level 7.6 L Test 09/19/17 09:13 09/19/17 12:35 09/19/17 17:35 Bedside Glucose 173 189 122 Medications Medications Current Medications Diagnostic Test (Pha) (Accu-Chek) 1 ea 02 XX Last administered on 09/15/17 02 :00; Admin Dose 1 EA; Start 08/23/17 at 02:00 Miscellaneous Information 1 ea NOTE XX ; Start 08/22/17 at 13:30 Glucose (Glutose) 15 gm Q15M PRN PO DECREASED GLUCOSE; Start 08/22/17 at 13:30 Glucose (Glutose) 22.5 gm Q15M PRN PO DECREASED GLUCOSE; Start 08/22/17 at 13: 30 Dextrose (D50w Syringe) 25 ml Q15M PRN IV DECREASED GLUCOSE Last administered on 09/17/17 21:41; Admin Dose 25 ML; Start 08/22/17 at 13:30 Dextrose (D50w Syringe) 50 ml Q15M PRN IV DECREASED GLUCOSE Last administered on 09/12/17 12:27; Admin Dose 50 ML; Start 08/22/17 at 13:30 Glucagon (Glucagen) 1 mg Q15M PRN IM DECREASED GLUCOSE; Start 08/22/17 at 13:30 Glucose (Glutose) 15 gm Q15M PRN BUCCAL DECREASED GLUCOSE; Start 08/22/17 at 13 :30 Sodium Hypochlorite (Dakin'S (Dilute 1/40%)) 1 applic BID IRR Last administered on 09/19/17 09:12; Admin Dose 1 APPLIC; Start 08/23/17 at 09:00 Acetaminophen (Tylenol Tab) 500 mg Q4H PRN PO PAIN AND OR ELEVATED TEMP Last administered on 08/27/17 01:27; Admin Dose 500 MG; Start 08/25/17 at 12:00 Morphine Sulfate (morphine) 2 mg Q4H PRN IV PAIN LEVEL 4-6 Last administered on 09/03/17 20:38; Admin Dose 2 MG; Start 08/25/17 at 12:00 Lansoprazole (Prevacid) 30 mg DAILY@06 GTB Last administered on 09/19/17 05: 36; Admin Dose 30 MG; Start 08/29/17 at 06:00 Insulin Aspart (Novolog Insulin Pen) (Adult SC Insulin - Mild Algorithm)... Q4 SC Last administered on 09/19/17 12:44; Admin Dose 2 UNIT; Start 08/31/17 at 16:00 Lisinopril (Zestril) 20 mg BID PO Last administered on 09/18/17 21:24; Admin Dose 20 MG; Start 09/02/17 at 21:00 Clonidine (Catapres) 0.1 mg Q6H PRN GTB ELEVATED SYSTOLIC BP Last administered on 09/18/17 08:41; Admin Dose 0.1 MG; Start 09/02/17 at 21:30 Epoetin Bo (Epogen (Esrd)) 2,000 units MoWeFr@17 SC Last administered on 17:14; Admin Dose 2,000 UNITS; Start 09/05/17 at 17:00 Epoetin Bo (Epogen (Esrd)) 3,000 units MoWeFr@17 SC Last administered on 17:14; Admin Dose 3,000 UNITS; Start 09/05/17 at 17:00 Insulin Glargine (Lantus) 10 unit DAILY SC Last administered on 09/19/17 09: 16; Admin Dose 10 UNIT; Start 09/08/17 at 09:00 Metoprolol Tartrate (Lopressor) 75 mg BID GTB Last administered on 09/18/17 21:25; Admin Dose 75 MG; Start 09/10/17 at 21:00 Collagenase (Santyl) 1 applic DAILY TOP Last administered on 09/19/17 09:12; Admin Dose 1 APPLIC; Start 09/11/17 at 09:00 Clonidine HCl (Catapres-Tts 1 Patch) 1 patch Th@20 TRANSDERM Last administered on 09/15/17 21:10; Admin Dose 1 PATCH; Start 09/15/17 at 20:00 Amlodipine Besylate (Norvasc) 10 mg DAILY PO Last administered on 09/18/17 16 :16; Admin Dose 10 MG; Start 09/18/17 at 14:00 LUCILLE CABALLERO MD Sep 19, 2017 17:47
[2017-09-20] VITALS (19 sets, daily range): BP systolic 103–183; BP diastolic 62–77; PULSE 56–69; RESP 17–25
[2017-09-20] MEDS: ACCU-CHEK XX SCH (02:00)
--- NOTE | 2017-09-20 04:20 | PN ---
Date/Time of Note Date/Time of Note DATE: 09/18/17 TIME: 19:19 Assessment/Plan Lines/Catheters IV Catheter Type (from Nrs): Right chest permacath Chun in Place (from Nrs): No Assessment/Plan Chief Complaint/Hosp Course 1. Sacral wound with mod drainage and odor: +wound cultures; still awaiting decision from family -Frequent turning and offloading -local care with dakins -debridement: awaiting decision from family -local care -low airloss mattress -optimize nutrition -vitamin c/short term zinc 2. VRDF w pna: -cont vent management -pulm toilet -abx per ID 3. Acute on chronic kidney disease:on HD -per renal -limit nephrotoxic meds -HD per renal 4. Anemia: no acute bleed noted -monitor and transfuse prn 5. Dysphagia w tf -continue tf w aspiration precautions 6. Diabetes: -blood sugar optimization Thank you, Late entry 09/18 Problems: Subjective 24 Hr Interval Summary No acute changes. Non verbal indicators of pain not present. Appears comfortable on vent. No fevers, congested cough, change in tele rhythm, v/d. Family decision. Exam/Review of Systems Vital Signs Vitals Vital Signs Date Time Temp Pulse Resp B/P Pulse Ox O2 Delivery O2 Flow Rate FiO2 09/20/17 01:54 77 24 100 35 09/19/17 23:55 98.0 177/74 Intake and Output 09/19/17 09/19/17 09/20/17 15:00 23:00 07:00 Intake Total 500 ml 580 ml Output Total 2500 ml Balance -2000 ml 580 ml Exam Free Text/Dictation Constitutional: other (somnolent, opens eyes with stimuli), No distress Psych: other (flat) Head: atraumatic, normocephalic Eyes: nl lids, nl sclera ENMT: mucosa pink and moist Neck: other (trach) Respiratory: other (vent), No congested cough, No labored breathing Cardiovascular: nl pulses, regular rate and rhythm (sr) Gastrointestinal: soft, No distended (peg) Musculoskeletal: muscle weakness (stiffness), No nl gait and stance Extremities: normal pulses; bilat pedal edema Neurological: No nl speech, No nl strength Skin: other (sacrum with mind odor and mod drainage) Results Result Diagram: 09/19/17 0544 09/19/17 0544 MARITZA POTTER MD Sep 20, 2017 04:20
--- NOTE | 2017-09-20 04:22 | PN ---
Date/Time of Note Date/Time of Note DATE: 09/19/17 TIME: 12:20 Assessment/Plan Lines/Catheters IV Catheter Type (from Nrs): Right chest permacath Chun in Place (from Nrs): No Assessment/Plan Chief Complaint/Hosp Course 1. Sacral wound with mod drainage and odor: +wound cultures; Family decision -Frequent turning and offloading -local care with dakins -debridement: awaiting decision from family -local care -low airloss mattress -optimize nutrition -vitamin c/short term zinc 2. VRDF w pna: -cont vent management -pulm toilet -abx per ID 3. Acute on chronic kidney disease:on HD -per renal -limit nephrotoxic meds -HD per renal 4. Anemia: no acute bleed noted -monitor and transfuse prn 5. Dysphagia w tf -continue tf w aspiration precautions 6. Diabetes: -blood sugar optimization Thank you, Late entry 09/19 Problems: Subjective 24 Hr Interval Summary No acute changes. Non verbal indicators of pain not present. Appears comfortable on vent. No fevers, congested cough, change in tele rhythm, v/d. Family decision. Exam/Review of Systems Vital Signs Vitals Vital Signs Date Time Temp Pulse Resp B/P Pulse Ox O2 Delivery O2 Flow Rate FiO2 09/20/17 01:54 77 24 100 35 09/19/17 23:55 98.0 177/74 Intake and Output 09/19/17 09/19/17 09/20/17 15:00 23:00 07:00 Intake Total 500 ml 580 ml Output Total 2500 ml Balance -2000 ml 580 ml Exam Free Text/Dictation Constitutional: other (somnolent, opens eyes with stimuli), No distress Psych: other (flat) Head: atraumatic, normocephalic Eyes: nl lids, nl sclera ENMT: mucosa pink and moist Neck: other (trach) Respiratory: other (vent), No congested cough, No labored breathing Cardiovascular: nl pulses, regular rate and rhythm (sr) Gastrointestinal: soft, No distended (peg) Musculoskeletal: muscle weakness (stiffness), No nl gait and stance Extremities: normal pulses; bilat pedal edema Neurological: No nl speech, No nl strength Skin: other (sacrum with mind odor and mod drainage) Results Result Diagram: 09/19/17 0544 09/19/17 0544 MARITZA POTTER MD Sep 20, 2017 04:22
[2017-09-20] MEDS: INSULIN ASPART [NOVOLOG] 3 ML PEN SC SCH ×4 (05:13→17:10)
[2017-09-20] MEDS: LANSOPRAZOLE 30 MG CAP GTB SCH (05:13)
[2017-09-20] MEDS: AMLODIPINE 10 MG TAB PO SCH (08:11)
[2017-09-20] MEDS: LISINOPRIL 20 MG TAB PO SCH (08:11)
[2017-09-20] MEDS: METOPROLOL 50 MG TAB GTB SCH (08:12)
[2017-09-20] MEDS: INSULIN GLARGINE [LANtus] 3 ML PEN SC SCH (08:14)
[2017-09-20] MEDS: SODIUM HYPOCHLORITE 1/40% 1L IRRIG IRR SCH (08:15)
[2017-09-20] MEDS: COLLAGENASE 30 GM TUBE TOP SCH (08:15)
--- NOTE | 2017-09-20 12:07 | CONS ---
Date/Time of Note Date/Time of Note DATE: 09/20/17 TIME: 12:04 Assessment/Plan Assessment/Plan Additional Assessment/Plan Ventilator setting; AC of 24, tidal volume 450, PEEP of 5, 35% FiO2. Assessment and recommendations; 1. Patient admitted with severe bilateral pneumonia, off antibiotics now. 2. Chronic respiratory failure. 3. Chronic renal failure, now requiring hemodialysis. 4. Advanced dementia. Continue current treatment. Patient awaiting transfer to senior living. Prognosis remains poor. Consultation Date/Type/Reason Admit Date/Time Aug 20, 2017 at 17:03 Initial Consult Date 08/20/17 Type of Consultation: Pulmonary Referring Provider: MISSAEL CROSS MD 24 HR Interval Summary Free Text/Dictation Patient's condition remains stable. Remains unresponsive. Has remained hemodynamically stable. General exam; elderly male, on ventilator via tracheostomy, unresponsive, currently in no distress. Exam/Review of Systems Vital Signs Vitals Vital Signs Date Time Temp Pulse Resp B/P Pulse Ox O2 Delivery O2 Flow Rate FiO2 09/20/17 11:15 57 24 96 35 09/20/17 08:08 97.6 183/77 Intake and Output 09/19/17 09/19/17 09/20/17 14:59 22:59 06:59 Intake Total 500 ml 580 ml 660 ml Output Total 2500 ml Balance -2000 ml 580 ml 660 ml Exam HEENT exam; supple neck, no JVD. No lymphadenopathy. Midline trachea. No thyromegaly. Tracheostomy in place. Chest exam; scattered crackles bilaterally. S1-S2 audible, no murmurs. Regular rhythm. abdomen exam; soft, nondistended. No organomegaly. G-tube in place. Bowel sounds audible. Extremity exam; no peripheral edema. [employer] exam; patient remains unresponsive. Results Result Diagram: 09/19/17 0544 09/20/17 1028 Results 24 hrs Laboratory Tests Test 09/19/17 12:35 09/19/17 17:35 09/20/17 00:30 09/20/17 05:12 Bedside Glucose 189 122 107 125 Test 09/20/17 07:52 09/20/17 10:28 09/20/17 11:51 Bedside Glucose 123 91 Sodium Level 138 Potassium Level 4.3 Chloride Level 101 Carbon Dioxide Level 31 Anion Gap 10 # Blood Urea Nitrogen 43 #H Creatinine 3.52 H Glucose Level 113 Calcium Level 8.8 Medications Medications Current Medications Diagnostic Test (Pha) (Accu-Chek) 1 ea 02 XX Last administered on 09/15/17 02 :00; Admin Dose 1 EA; Start 08/23/17 at 02:00 Miscellaneous Information 1 ea NOTE XX ; Start 08/22/17 at 13:30 Glucose (Glutose) 15 gm Q15M PRN PO DECREASED GLUCOSE; Start 08/22/17 at 13:30 Glucose (Glutose) 22.5 gm Q15M PRN PO DECREASED GLUCOSE; Start 08/22/17 at 13: 30 Dextrose (D50w Syringe) 25 ml Q15M PRN IV DECREASED GLUCOSE Last administered on 09/17/17 21:41; Admin Dose 25 ML; Start 08/22/17 at 13:30 Dextrose (D50w Syringe) 50 ml Q15M PRN IV DECREASED GLUCOSE Last administered on 09/12/17 12:27; Admin Dose 50 ML; Start 08/22/17 at 13:30 Glucagon (Glucagen) 1 mg Q15M PRN IM DECREASED GLUCOSE; Start 08/22/17 at 13:30 Glucose (Glutose) 15 gm Q15M PRN BUCCAL DECREASED GLUCOSE; Start 08/22/17 at 13 :30 Sodium Hypochlorite (Dakin'S (Dilute 1/40%)) 1 applic BID IRR Last administered on 09/20/17 08:15; Admin Dose 1 APPLIC; Start 08/23/17 at 09:00 Acetaminophen (Tylenol Tab) 500 mg Q4H PRN PO PAIN AND OR ELEVATED TEMP Last administered on 08/27/17 01:27; Admin Dose 500 MG; Start 08/25/17 at 12:00 Morphine Sulfate (morphine) 2 mg Q4H PRN IV PAIN LEVEL 4-6 Last administered on 09/03/17 20:38; Admin Dose 2 MG; Start 08/25/17 at 12:00 Lansoprazole (Prevacid) 30 mg DAILY@06 GTB Last administered on 09/20/17 05: 13; Admin Dose 30 MG; Start 08/29/17 at 06:00 Lisinopril (Zestril) 20 mg BID PO Last administered on 09/20/17 08:11; Admin Dose 20 MG; Start 09/02/17 at 21:00 Clonidine (Catapres) 0.1 mg Q6H PRN GTB ELEVATED SYSTOLIC BP Last administered on 09/20/17 07:20; Admin Dose 0.1 MG; Start 09/02/17 at 21:30 Epoetin Bo (Epogen (Esrd)) 2,000 units MoWeFr@17 SC Last administered on 17:14; Admin Dose 2,000 UNITS; Start 09/05/17 at 17:00 Epoetin Bo (Epogen (Esrd)) 3,000 units MoWeFr@17 SC Last administered on 17:14; Admin Dose 3,000 UNITS; Start 09/05/17 at 17:00 Insulin Glargine (Lantus) 10 unit DAILY SC Last administered on 09/20/17 08: 14; Admin Dose 10 UNIT; Start 09/08/17 at 09:00 Metoprolol Tartrate (Lopressor) 75 mg BID GTB Last administered on 09/20/17 08:12; Admin Dose 75 MG; Start 09/10/17 at 21:00 Collagenase (Santyl) 1 applic DAILY TOP Last administered on 09/20/17 08:15; Admin Dose 1 APPLIC; Start 09/11/17 at 09:00 Clonidine HCl (Catapres-Tts 1 Patch) 1 patch Th@20 TRANSDERM Last administered on 09/15/17 21:10; Admin Dose 1 PATCH; Start 09/15/17 at 20:00 Amlodipine Besylate (Norvasc) 10 mg DAILY PO Last administered on 09/20/17 08 :11; Admin Dose 10 MG; Start 09/18/17 at 14:00 Insulin Aspart (Novolog Insulin Pen) (Adult SC Insulin - Mild Algorithm)... Q6 SC ; Start 09/20/17 at 00:00 ODETTE MCKEON Sep 20, 2017 12:07
--- NOTE | 2017-09-20 13:19 | CONS ---
Date/Time of Note Date/Time of Note DATE: 09/20/17 TIME: 13:17 Assessment/Plan Assessment/Plan Additional Assessment/Plan 1. Sepsis due to PNA 2. Acute on chronic renal failure - with severe metabolic acidosis and acute uremic encephalopathy- pt is anuric, started on HD during this admission 3. AMS due to acute uremic encephalopathy + acute metabolic encephalopathy 3. H/o recent admission to [place] for renal failure 4. H/o chronic resp failure s/p tracheostomy 5. HTN 6. H/o CVA with residual weakness 7.. IDDM 8. Anemia,severe, anemia of chronic disease, 9. 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 Outpatient HD placement is pending- difficult placement [facility] can not accept pt will talk with PMD to discuss about discharge options IV abx as per ID will follow up Consultation Date/Type/Reason Admit Date/Time Aug 20, 2017 at 17:03 Initial Consult Date 08/20/17 Type of Consultation: NEPHROLOGY Referring Provider: MISSAEL CROSS MD Exam/Review of Systems Vital Signs Vitals Vital Signs Date Time Temp Pulse Resp B/P Pulse Ox O2 Delivery O2 Flow Rate FiO2 09/20/17 12:07 98.4 58 17 129/62 100 09/20/17 11:15 35 Intake and Output 09/19/17 09/19/17 09/20/17 15:00 23:00 07:00 Intake Total 500 ml 580 ml 660 ml Output Total 2500 ml Balance -2000 ml 580 ml 660 ml Exam Constitutional: non-verbal ENMT: other (+ tracheostomy on ventilator ) Respiratory: congested cough, crackles/rales, diminished breath sounds Cardiovascular: S3, regular rate and rhythm Gastrointestinal: non-tender, soft Musculoskeletal: other (2+ pittign edema ), swelling Neurological: other (non verbal , pt is s/p tracheostomy on ventilator ) Results Result Diagram: 09/19/17 0544 09/20/17 1028 Results 24 hrs Laboratory Tests Test 09/19/17 17:35 09/20/17 00:30 09/20/17 05:12 09/20/17 07:52 Bedside Glucose 122 107 125 123 Test 09/20/17 10:28 09/20/17 11:51 Sodium Level 138 Potassium Level 4.3 Chloride Level 101 Carbon Dioxide Level 31 Anion Gap 10 # Blood Urea Nitrogen 43 #H Creatinine 3.52 H Glucose Level 113 Calcium Level 8.8 Bedside Glucose 91 Medications Medications Current Medications Diagnostic Test (Pha) (Accu-Chek) 1 ea 02 XX Last administered on 09/15/17 02 :00; Admin Dose 1 EA; Start 08/23/17 at 02:00 Miscellaneous Information 1 ea NOTE XX ; Start 08/22/17 at 13:30 Glucose (Glutose) 15 gm Q15M PRN PO DECREASED GLUCOSE; Start 08/22/17 at 13:30 Glucose (Glutose) 22.5 gm Q15M PRN PO DECREASED GLUCOSE; Start 08/22/17 at 13: 30 Dextrose (D50w Syringe) 25 ml Q15M PRN IV DECREASED GLUCOSE Last administered on 09/17/17 21:41; Admin Dose 25 ML; Start 08/22/17 at 13:30 Dextrose (D50w Syringe) 50 ml Q15M PRN IV DECREASED GLUCOSE Last administered on 09/12/17 12:27; Admin Dose 50 ML; Start 08/22/17 at 13:30 Glucagon (Glucagen) 1 mg Q15M PRN IM DECREASED GLUCOSE; Start 08/22/17 at 13:30 Glucose (Glutose) 15 gm Q15M PRN BUCCAL DECREASED GLUCOSE; Start 08/22/17 at 13 :30 Sodium Hypochlorite (Dakin'S (Dilute 1/40%)) 1 applic BID IRR Last administered on 09/20/17 08:15; Admin Dose 1 APPLIC; Start 08/23/17 at 09:00 Acetaminophen (Tylenol Tab) 500 mg Q4H PRN PO PAIN AND OR ELEVATED TEMP Last administered on 08/27/17 01:27; Admin Dose 500 MG; Start 08/25/17 at 12:00 Morphine Sulfate (morphine) 2 mg Q4H PRN IV PAIN LEVEL 4-6 Last administered on 09/03/17 20:38; Admin Dose 2 MG; Start 08/25/17 at 12:00 Lansoprazole (Prevacid) 30 mg DAILY@06 GTB Last administered on 09/20/17 05: 13; Admin Dose 30 MG; Start 08/29/17 at 06:00 Lisinopril (Zestril) 20 mg BID PO Last administered on 09/20/17 08:11; Admin Dose 20 MG; Start 09/02/17 at 21:00 Clonidine (Catapres) 0.1 mg Q6H PRN GTB ELEVATED SYSTOLIC BP Last administered on 09/20/17 07:20; Admin Dose 0.1 MG; Start 09/02/17 at 21:30 Epoetin Bo (Epogen (Esrd)) 2,000 units MoWeFr@17 SC Last administered on 17:14; Admin Dose 2,000 UNITS; Start 09/05/17 at 17:00 Epoetin Bo (Epogen (Esrd)) 3,000 units MoWeFr@17 SC Last administered on 17:14; Admin Dose 3,000 UNITS; Start 09/05/17 at 17:00 Insulin Glargine (Lantus) 10 unit DAILY SC Last administered on 09/20/17 08: 14; Admin Dose 10 UNIT; Start 09/08/17 at 09:00 Metoprolol Tartrate (Lopressor) 75 mg BID GTB Last administered on 09/20/17 08:12; Admin Dose 75 MG; Start 09/10/17 at 21:00 Collagenase (Santyl) 1 applic DAILY TOP Last administered on 09/20/17 08:15; Admin Dose 1 APPLIC; Start 09/11/17 at 09:00 Clonidine HCl (Catapres-Tts 1 Patch) 1 patch Th@20 TRANSDERM Last administered on 09/15/17 21:10; Admin Dose 1 PATCH; Start 09/15/17 at 20:00 Amlodipine Besylate (Norvasc) 10 mg DAILY PO Last administered on 09/20/17 08 :11; Admin Dose 10 MG; Start 09/18/17 at 14:00 Insulin Aspart (Novolog Insulin Pen) (Adult SC Insulin - Mild Algorithm)... Q6 SC ; Start 09/20/17 at 00:00 LUCILLE CABALLERO MD Sep 20, 2017 13:18
--- NOTE | 2017-09-20 15:28 | CONS ---
Date/Time of Note Date/Time of Note DATE: 09/20/17 TIME: 15:26 Assessment/Plan Assessment/Plan Additional Assessment/Plan 1. Positive troponin-in the setting of renal failure-No sig uptrend - no intervention planned now. 2. Abnormal electrocardiogram, nonspecific ST-T abnormalities - no CP now. 3. Hypertension-uncontrolled. F/U after receiving anti-hypertensives - in good range now. 4. Respiratory failure, chronic - con't resp Rx. 5. Renal failure, acute on chronic. 6. Dysphagia, status post G-tube. 7. Anemia-ongoing 8. Thrombocytopenia-improved 9. Encephalopathy. 10. History of CVA. 11. Diabetes mellitus. 12. Hypokalemia 14. Cardiomyopathy-depressed EF 40% Consultation Date/Type/Reason Admit Date/Time Aug 20, 2017 at 17:03 Initial Consult Date 08/20/17 Type of Consultation: NEPHROLOGY Referring Provider: MISSAEL CROSS MD 24 HR Interval Summary Free Text/Dictation NO acute events - stable VS - con't Resp Rx. ROS: No fever, no chills, no nausea, no vomiting, no diarrhea/constipation No recent weight changes No chest pain, no PND, no orthopnea No dizziness, blurred vision No thirst, no heat or cold intolerance (per nurse) Exam/Review of Systems Vital Signs Vitals Vital Signs Date Time Temp Pulse Resp B/P Pulse Ox O2 Delivery O2 Flow Rate FiO2 09/20/17 13:15 57 24 100 35 09/20/17 12:07 98.4 129/62 Intake and Output 09/19/17 09/19/17 09/20/17 15:00 23:00 07:00 Intake Total 500 ml 580 ml 660 ml Output Total 2500 ml Balance -2000 ml 580 ml 660 ml Exam General: WN/WD/NAD, AOx 3 HEENT: Unicetric/atraumatic/EOMI (does not follow commands) NECK: trach Lymph: no lymphadenopathy HEART: regular with no S3, II/ systolic murmur at apex LUNGS: Coarse sounds ABD: soft, NT, ND, +BS : Intact Neuro: non focal SKIN: chronic changes EXT: trace edema Results Result Diagram: 09/19/17 0544 09/20/17 1028 Results 24 hrs Laboratory Tests Test 09/19/17 17:35 09/20/17 00:30 09/20/17 05:12 09/20/17 07:52 Bedside Glucose 122 107 125 123 Test 09/20/17 10:28 09/20/17 11:51 Sodium Level 138 Potassium Level 4.3 Chloride Level 101 Carbon Dioxide Level 31 Anion Gap 10 # Blood Urea Nitrogen 43 #H Creatinine 3.52 H Glucose Level 113 Calcium Level 8.8 Bedside Glucose 91 Medications Medications Current Medications Diagnostic Test (Pha) (Accu-Chek) 1 ea 02 XX Last administered on 09/15/17 02 :00; Admin Dose 1 EA; Start 08/23/17 at 02:00 Miscellaneous Information 1 ea NOTE XX ; Start 08/22/17 at 13:30 Glucose (Glutose) 15 gm Q15M PRN PO DECREASED GLUCOSE; Start 08/22/17 at 13:30 Glucose (Glutose) 22.5 gm Q15M PRN PO DECREASED GLUCOSE; Start 08/22/17 at 13: 30 Dextrose (D50w Syringe) 25 ml Q15M PRN IV DECREASED GLUCOSE Last administered on 09/17/17 21:41; Admin Dose 25 ML; Start 08/22/17 at 13:30 Dextrose (D50w Syringe) 50 ml Q15M PRN IV DECREASED GLUCOSE Last administered on 09/12/17 12:27; Admin Dose 50 ML; Start 08/22/17 at 13:30 Glucagon (Glucagen) 1 mg Q15M PRN IM DECREASED GLUCOSE; Start 08/22/17 at 13:30 Glucose (Glutose) 15 gm Q15M PRN BUCCAL DECREASED GLUCOSE; Start 08/22/17 at 13 :30 Sodium Hypochlorite (Dakin'S (Dilute 1/40%)) 1 applic BID IRR Last administered on 09/20/17 08:15; Admin Dose 1 APPLIC; Start 08/23/17 at 09:00 Acetaminophen (Tylenol Tab) 500 mg Q4H PRN PO PAIN AND OR ELEVATED TEMP Last administered on 08/27/17 01:27; Admin Dose 500 MG; Start 08/25/17 at 12:00 Morphine Sulfate (morphine) 2 mg Q4H PRN IV PAIN LEVEL 4-6 Last administered on 09/03/17 20:38; Admin Dose 2 MG; Start 08/25/17 at 12:00 Lansoprazole (Prevacid) 30 mg DAILY@06 GTB Last administered on 09/20/17 05: 13; Admin Dose 30 MG; Start 08/29/17 at 06:00 Lisinopril (Zestril) 20 mg BID PO Last administered on 09/20/17 08:11; Admin Dose 20 MG; Start 09/02/17 at 21:00 Clonidine (Catapres) 0.1 mg Q6H PRN GTB ELEVATED SYSTOLIC BP Last administered on 09/20/17 07:20; Admin Dose 0.1 MG; Start 09/02/17 at 21:30 Epoetin Bo (Epogen (Esrd)) 2,000 units MoWeFr@17 SC Last administered on 17:14; Admin Dose 2,000 UNITS; Start 09/05/17 at 17:00 Epoetin Bo (Epogen (Esrd)) 3,000 units MoWeFr@17 SC Last administered on 17:14; Admin Dose 3,000 UNITS; Start 09/05/17 at 17:00 Insulin Glargine (Lantus) 10 unit DAILY SC Last administered on 09/20/17 08: 14; Admin Dose 10 UNIT; Start 09/08/17 at 09:00 Metoprolol Tartrate (Lopressor) 75 mg BID GTB Last administered on 09/20/17 08:12; Admin Dose 75 MG; Start 09/10/17 at 21:00 Collagenase (Santyl) 1 applic DAILY TOP Last administered on 09/20/17 08:15; Admin Dose 1 APPLIC; Start 09/11/17 at 09:00 Clonidine HCl (Catapres-Tts 1 Patch) 1 patch Th@20 TRANSDERM Last administered on 09/15/17 21:10; Admin Dose 1 PATCH; Start 09/15/17 at 20:00 Amlodipine Besylate (Norvasc) 10 mg DAILY PO Last administered on 09/20/17 08 :11; Admin Dose 10 MG; Start 09/18/17 at 14:00 Insulin Aspart (Novolog Insulin Pen) (Adult SC Insulin - Mild Algorithm)... Q6 SC ; Start 09/20/17 at 00:00 ABE SILVA MD Sep 20, 2017 15:28
--- NOTE | 2017-09-20 17:43 | PN ---
Date/Time of Note Date/Time of Note DATE: 09/20/17 TIME: 17:41 Assessment/Plan VTE Prophylaxis VTE Prophylaxis Intervention: SCD's Lines/Catheters IV C[facility]ter Type (from [facility] Permacath Urinary Cath still in place: No Assessment/Plan Chief Complaint/Hosp Course Patient remains hemodynamically stable, DC to [place] Assessment/Plan -Acute on chronic CKD. Continue hemodialysis. S/p permacath placement. Dr. Nieto is following in nephrology consultation. -Ventilator dependent respiratory failure with tracheostomy. -Pulmonary edema versus multifocal pneumonia, status post treatment with antibiotics. Dr Hill is following in infection disease consultation -Positive troponin in the setting of renal disease, Dr. Zuniga is following in cardiology consultation -Acute metabolic encephalopathy -Anemia, s/p blood transfusion, continue Epogen, continue to monitor hemoglobin and hematocrit -DM, continue Lantus, NovoLog per sliding scale. -Dysphagia with PEG -Sacral wound, Dr. Worthy is following in general surgery consultation. Continue current wound care. Further recommendations based on clinical course. Plan of care discussed with Dr. Chávez. Problems: Exam/Review of Systems Vital Signs Vitals Vital Signs Date Time Temp Pulse Resp B/P Pulse Ox O2 Delivery O2 Flow Rate FiO2 09/20/17 16:00 56 09/20/17 15:35 98.4 17 136/63 100 09/20/17 15:10 35 Intake and Output 09/19/17 09/19/17 09/20/17 15:00 23:00 07:00 Intake Total 500 ml 580 ml 660 ml Output Total 2500 ml Balance -2000 ml 580 ml 660 ml Exam Constitutional: non-verbal Head: normocephalic Neck: supple Respiratory: clear breath sounds Cardiovascular: nl pulses Gastrointestinal: non-tender, other (G-tube), soft Extremities: edema Results Result Diagram: 09/19/17 0544 09/20/17 1028 Results 24 hrs Laboratory Tests Test 09/20/17 00:30 09/20/17 05:12 09/20/17 07:52 09/20/17 10:28 Bedside Glucose 107 125 123 Sodium Level 138 Potassium Level 4.3 Chloride Level 101 Carbon Dioxide Level 31 Anion Gap 10 # Blood Urea Nitrogen 43 #H Creatinine 3.52 H Glucose Level 113 Calcium Level 8.8 Test 09/20/17 11:51 09/20/17 17:10 Bedside Glucose 91 79 Medications Medications Current Medications Diagnostic Test (Pha) (Accu-Chek) 1 ea 02 XX Last administered on 09/15/17 02 :00; Admin Dose 1 EA; Start 08/23/17 at 02:00 Miscellaneous Information 1 ea NOTE XX ; Start 08/22/17 at 13:30 Glucose (Glutose) 15 gm Q15M PRN PO DECREASED GLUCOSE; Start 08/22/17 at 13:30 Glucose (Glutose) 22.5 gm Q15M PRN PO DECREASED GLUCOSE; Start 08/22/17 at 13: 30 Dextrose (D50w Syringe) 25 ml Q15M PRN IV DECREASED GLUCOSE Last administered on 09/17/17 21:41; Admin Dose 25 ML; Start 08/22/17 at 13:30 Dextrose (D50w Syringe) 50 ml Q15M PRN IV DECREASED GLUCOSE Last administered on 09/12/17 12:27; Admin Dose 50 ML; Start 08/22/17 at 13:30 Glucagon (Glucagen) 1 mg Q15M PRN IM DECREASED GLUCOSE; Start 08/22/17 at 13:30 Glucose (Glutose) 15 gm Q15M PRN BUCCAL DECREASED GLUCOSE; Start 08/22/17 at 13 :30 Sodium Hypochlorite (Dakin'S (Dilute 1/40%)) 1 applic BID IRR Last administered on 09/20/17 08:15; Admin Dose 1 APPLIC; Start 08/23/17 at 09:00 Acetaminophen (Tylenol Tab) 500 mg Q4H PRN PO PAIN AND OR ELEVATED TEMP Last administered on 08/27/17 01:27; Admin Dose 500 MG; Start 08/25/17 at 12:00 Morphine Sulfate (morphine) 2 mg Q4H PRN IV PAIN LEVEL 4-6 Last administered on 09/03/17 20:38; Admin Dose 2 MG; Start 08/25/17 at 12:00 Lansoprazole (Prevacid) 30 mg DAILY@06 GTB Last administered on 09/20/17 05: 13; Admin Dose 30 MG; Start 08/29/17 at 06:00 Lisinopril (Zestril) 20 mg BID PO Last administered on 09/20/17 08:11; Admin Dose 20 MG; Start 09/02/17 at 21:00 Clonidine (Catapres) 0.1 mg Q6H PRN GTB ELEVATED SYSTOLIC BP Last administered on 09/20/17 07:20; Admin Dose 0.1 MG; Start 09/02/17 at 21:30 Epoetin Bo (Epogen (Esrd)) 2,000 units MoWeFr@17 SC Last administered on 17:14; Admin Dose 2,000 UNITS; Start 09/05/17 at 17:00 Epoetin Bo (Epogen (Esrd)) 3,000 units MoWeFr@17 SC Last administered on 17:14; Admin Dose 3,000 UNITS; Start 09/05/17 at 17:00 Insulin Glargine (Lantus) 10 unit DAILY SC Last administered on 09/20/17 08: 14; Admin Dose 10 UNIT; Start 09/08/17 at 09:00 Metoprolol Tartrate (Lopressor) 75 mg BID GTB Last administered on 09/20/17 08:12; Admin Dose 75 MG; Start 09/10/17 at 21:00 Collagenase (Santyl) 1 applic DAILY TOP Last administered on 09/20/17 08:15; Admin Dose 1 APPLIC; Start 09/11/17 at 09:00 Clonidine HCl (Catapres-Tts 1 Patch) 1 patch Th@20 TRANSDERM Last administered on 09/15/17 21:10; Admin Dose 1 PATCH; Start 09/15/17 at 20:00 Amlodipine Besylate (Norvasc) 10 mg DAILY PO Last administered on 09/20/17 08 :11; Admin Dose 10 MG; Start 09/18/17 at 14:00 Insulin Aspart (Novolog Insulin Pen) (Adult SC Insulin - Mild Algorithm)... Q6 SC ; Start 09/20/17 at 00:00 ARLETH MCKNIGHT Sep 20, 2017 17:43
--- NOTE | 2017-09-20 17:45 | DS ---
Date/Time of Note Date/Time of Note DATE: 09/20/17 TIME: 17:43 Discharge Summary Admission/Discharge Info Admit Date/Time Aug 20, 2017 at 17:03 Discharge Date/Time Patient Condition: Stable Hx of Present Illness Patient is from subacute with respiratory failure that is known to me. Patient apparently was noted to have increasing BUN and Creatinine but there was conflicting reports as to how aggressive the family wanted to be regarding his treatment. I was called regarding BUN over 100 and Cr also extremely elevated. Patient was apparently stable but the family decided that they wanted the patient to go to an acute hospital. Patient was then transfered for further evaluation and treatment. Hospital Course -Acute on chronic CKD. Patient was started on hemodialysis during this admission, continue hemodialysis. S/p permacath placement. Dr. Nieto is following in nephrology consultation. -Ventilator dependent respiratory failure with tracheostomy. -Pulmonary edema versus multifocal pneumonia, status post treatment with antibiotics. Dr Hill is following in infection disease consultation -Positive troponin in the setting of renal disease, Dr. Zuniga is following in cardiology consultation -Acute metabolic encephalopathy -Anemia, s/p blood transfusion, continue Epogen, continue to monitor hemoglobin and hematocrit -DM, continue Lantus, NovoLog per sliding scale. -Dysphagia with PEG -Sacral wound, Dr. Worthy is following in general surgery consultation. Continue current wound care. Home Meds Reported Medications Insulin Aspart* (Novolog Insulin Pen*) 100 Unit/Ml Soln, 0 SC .SLIDING SCALE AC , EA BEFORE MEALS AND AT BEDTIME 61-149= 0 UNITS 150-199= 2 UNITS 200-249= 3 UNITS 250-299= 5 UNITS 300-349= 7 UNITS ABOVE 350 10 UNITS AND CALL MD ALSO BELOW 60 CALL 08/20/17 Cholestyramine (with Sugar) (Questran Packet) 4 Gm Powd.pack, 4 GM GTB BID Y for DIARRHEA give with food avoid other meds within 1 hour before or 4-6 hours after dose 08/20/17 Pantoprazole* (Protonix*) 40 Mg Tablet., 40 MG GTB DAILY, TAB 08/20/17 Vit C-Ascorbate Ca-Ascorb Sod (Vitamin C) 500 Mg/15 Ml Liquid, 166 MG GTB BID, ML 08/20/17 Folic Acid/Vitamin B Comp W-C (Nephrocaps Capsule) 1 Mg Capsule, 1 MG GTB DAILY , CAP 08/20/17 Metoprolol Tartrate* (Lopressor*) 25 Mg Tablet, 75 MG GTB BID, #180 TAB HOLD IF SBP <110 OR HR <60 TAKE WITH FOOD 08/20/17 Insulin Detemir (Levemir Flextouch) 100 Unit/1 Ml Insuln.pen, 10 UNIT SQ QHS 08/20/17 Isosorbide Dinitrate* (Isosorbide Dinitrate*) 20 Mg Tablet, 40 MG GTB BID, TAB 08/20/17 Hydralazine Hcl* (Hydralazine Hcl*) 50 Mg Tab, 50 MG GTB TID, #90 TAB HOLF IF SBP <110 OR HR <60 08/20/17 Furosemide* (Furosemide*) 40 Mg Tablet, 40 MG GTB BID, TAB 08/20/17 Saccharomyces Boulardii* (Florastor*) 250 Mg Cap, 250 MG GTB BID, CAP 08/20/17 Ferrous Sulfate (Ferrous Sulfate) 220 Mg/5 Ml Elixir, 220 MG GTB BID, BOTTLE 08/20/17 Epoetin Bo (Epogen) 10,000 Units/Ml Soln, 15868 UNITS SC EVERY TUESDAY, VIAL 08/20/17 Clonidine Hcl* (Clonidine Hcl*) 0.1 Mg Tab, 0.1 MG PO Q6 Y for ELEVATED BLOOD PRESSURE, TAB GIVE IF SBP >160 08/20/17 Diphenhydramine Hcl* (Benadryl*) 25 Mg Cap, 25 MG GTB Q8 Y for ITCHING, CAP 08/20/17 Arginine/Ascorbate Sod/Florencio AC (Arginaid Powder) 1 Each Powd.pack, 1 EACH GTB BID MIX WITH 180ML WATER 08/20/17 Amlodipine Besylate* (Norvasc*) 5 Mg Tablet, 5 MG GTB BID, TAB 08/20/17 Acetaminophen* (Acetaminophen* Susp) 160 Mg/5 Ml Oral.susp, 640 MG GTB Q4H Y for MILD-MOD PAIN, ML 08/20/17 Acetaminophen* (Acetaminophen* Susp) 160 Mg/5 Ml Oral.susp, 640 MG GTB Q4H Y for PAIN OR TEMP ABOVE 38C, ML 08/20/17 Follow-up Plan CBC BMP in 2 days, patient needs long-term hemodialysis Primary Care Provider Waqar Chávez MD Time spent on discharge: > 30 minutes Pending Labs Laboratory Tests Test 09/20/17 00:30 09/20/17 05:12 09/20/17 07:52 09/20/17 10:28 Bedside Glucose 107mg/dL (70-220) 125mg/dL (70-220) 123mg/dL (70-220) Sodium Level 138mmol/L (135-144) Potassium Level 4.3mmol/L (3.5-5.1) Chloride Level 101mmol/L (97-110) Carbon Dioxide Level 31mmol/L (21-31) Anion Gap 10 (8-16) Blood Urea Nitrogen 43mg/dl (7-20) Creatinine 3.52mg/dl (0.61-1.24) Glucose Level 113mg/dl (70-220) Calcium Level 8.8mg/dl (8.4-10.2) Test 09/20/17 11:51 09/20/17 17:10 Bedside Glucose 91mg/dL (70-220) 79mg/dL (70-220) ARLETH MCKNIGHT Sep 20, 2017 17:45
== END 2017-09-20 18:55 | DRG 673 ==
LOC: E/R 14:06 → ICU 17:03 → TEL 17:03 → UNDOADMIN 17:03 → TEL 18:37 → ICU 08-21 02:25 → TEL 09-01 22:10
PROVIDERS: ADMIT Internal Medicine; ATTEND Internal Medicine
PROC: 5A1955Z Respiratory Ventilation, Greater than 96 Consecutive Hours (ICD-10-PCS; 2017-08-20)
PROC: 06HM33Z Insertion of Infusion Device into Right Femoral Vein, Percutaneous Approach (ICD-10-PCS; 2017-08-22)
PROC: 5A1D70Z Performance of Urinary Filtration, Intermittent, Less than 6 Hours Per Day (ICD-10-PCS; 2017-08-22)
PROC: 02HV33Z Insertion of Infusion Device into Superior Vena Cava, Percutaneous Approach (ICD-10-PCS; 2017-08-22)
PROC: 30233N1 Transfusion of Nonautologous Red Blood Cells into Peripheral Vein, Percutaneous Approach (ICD-10-PCS; 2017-08-22)
PROC: 5A1D70Z Performance of Urinary Filtration, Intermittent, Less than 6 Hours Per Day (ICD-10-PCS; 2017-08-23)
PROC: 5A1D70Z Performance of Urinary Filtration, Intermittent, Less than 6 Hours Per Day (ICD-10-PCS; 2017-08-25)
PROC: 30233N1 Transfusion of Nonautologous Red Blood Cells into Peripheral Vein, Percutaneous Approach (ICD-10-PCS; 2017-08-25)
PROC: 5A1D70Z Performance of Urinary Filtration, Intermittent, Less than 6 Hours Per Day (ICD-10-PCS; 2017-08-27)
PROC: 5A1D70Z Performance of Urinary Filtration, Intermittent, Less than 6 Hours Per Day (ICD-10-PCS; 2017-08-29)
PROC: 30233N1 Transfusion of Nonautologous Red Blood Cells into Peripheral Vein, Percutaneous Approach (ICD-10-PCS; 2017-08-29)
PROC: 5A1D70Z Performance of Urinary Filtration, Intermittent, Less than 6 Hours Per Day (ICD-10-PCS; 2017-08-31)
PROC: 5A1D70Z Performance of Urinary Filtration, Intermittent, Less than 6 Hours Per Day (ICD-10-PCS; 2017-09-02)
PROC: 5A1D70Z Performance of Urinary Filtration, Intermittent, Less than 6 Hours Per Day (ICD-10-PCS; 2017-09-05)
PROC: 5A1D70Z Performance of Urinary Filtration, Intermittent, Less than 6 Hours Per Day (ICD-10-PCS; 2017-09-07)
PROC: 30233N1 Transfusion of Nonautologous Red Blood Cells into Peripheral Vein, Percutaneous Approach (ICD-10-PCS; 2017-09-07)
PROC: 5A1D70Z Performance of Urinary Filtration, Intermittent, Less than 6 Hours Per Day (ICD-10-PCS; 2017-09-09)
PROC: 5A1D70Z Performance of Urinary Filtration, Intermittent, Less than 6 Hours Per Day (ICD-10-PCS; 2017-09-11)
PROC: 02HV33Z Insertion of Infusion Device into Superior Vena Cava, Percutaneous Approach (ICD-10-PCS; 2017-09-12)
PROC: B518YZA Fluoroscopy of Superior Vena Cava using Other Contrast, Guidance (ICD-10-PCS; 2017-09-12)
PROC: 5A1D70Z Performance of Urinary Filtration, Intermittent, Less than 6 Hours Per Day (ICD-10-PCS; 2017-09-12)
PROC: 0JH63XZ Insertion of Tunneled Vascular Access Device into Chest Subcutaneous Tissue and Fascia, Percutaneous Approach (ICD-10-PCS; principal; 2017-09-12 12:00)
PROC: 5A1D70Z Performance of Urinary Filtration, Intermittent, Less than 6 Hours Per Day (ICD-10-PCS; 2017-09-14)
PROC: 5A1D70Z Performance of Urinary Filtration, Intermittent, Less than 6 Hours Per Day (ICD-10-PCS; 2017-09-16)
PROC: 5A1D70Z Performance of Urinary Filtration, Intermittent, Less than 6 Hours Per Day (ICD-10-PCS; 2017-09-19)
DX: N17.0 Acute kidney failure with tubular necrosis (principal); G93.41 Metabolic encephalopathy; J96.21 Acute and chronic respiratory failure with hypoxia; G93.49 Other encephalopathy; A41.9 Sepsis, unspecified organism; J18.9 Pneumonia, unspecified organism; I13.2 Hypertensive heart and chronic kidney disease with heart failure and with stage 5 chronic kidney disease, or end stage renal disease; L89.153 Pressure ulcer of sacral region, stage 3; I24.8 Other forms of acute ischemic heart disease; I69.954 Hemiplegia and hemiparesis following unspecified cerebrovascular disease affecting left non-dominant side; I50.9 Heart failure, unspecified; R79.89 Other specified abnormal findings of blood chemistry; R13.10 Dysphagia, unspecified; E11.22 Type 2 diabetes mellitus with diabetic chronic kidney disease; N18.6 End stage renal disease; D63.8 Anemia in other chronic diseases classified elsewhere; D69.6 Thrombocytopenia, unspecified; E66.01 Morbid (severe) obesity due to excess calories; Z68.35 Body mass index [BMI] 35.0-35.9, adult; Z93.0 Tracheostomy status; Z93.1 Gastrostomy status; Z99.2 Dependence on renal dialysis; Z79.4 Long term (current) use of insulin
CPT/HCPCS: 36430; 36569; 36600; 71010; 76775; 76937; 80048; 80053; 80061; 80202; 81003; 82550; 82553; 82570; 82803; 82947; 82962; 83605; 83735; 83880; 84100; 84300; 84484; 84560; 85014; 85018; 85025; 85049; 85362; 85378; 85384; 85610; 85670; 85730; 86644; 86703; 86704; 86709; 86803; 86850; 86900; 86901; 86920; 87040; 87070; 87081; 87340; 89190; 90686; 90935; 93005; 93306; 93970; 93971; 94002; 94003; 94640; 94770; 96365; 96375; 96376; C1750; C1752; C9113; J0886; J1644; J1815; J2270; J2543; J2997; J3260; J3370; J3480; J7030; J7040; J7042; J7050; J7070; P9016; Q4081; Q9967